=== PATIENT | female | born 1960 | race Caucasian/White ===

== ENCOUNTER 2023-12-14 13:34 | Inpatient (IN) ==
--- NOTE | 2023-12-14 14:31 | ED Triage Note ---
Date of Service December 14, 2023 Provider in Triage Author: Inocente Gómez History of Present Illness This patient was briefly evaluated while in triage. An abbreviated physical exam was performed. This patient is a 63-year-old Female who presents to the ED for evaluation of problems with her right middle toe. She noticed a wound last week. She saw her pcp today and they referred her here. Denies fevers. She is diabetic. She reports a history of Charcot foot. Physical Exam GENERAL: Non-toxic and in no acute distress. HEENT: Pupils equal. No obvious scleral icterus. HEART: Regular rate and rhythm. LUNGS: Clear to auscultation. No accessory muscle use. SKIN: Feet covered in triage. Initial orders for labs and / or imaging were placed and patient was placed in the waiting area until a bed is available. Please see further documentation for the full ED course.
[2023-12-14 15:27] LABS: Basophils # (auto) 0.04 K/uL (0.00-0.20); Basophils % (auto) 0.2 %; Hematocrit (blood only) 41.5 % (37.0-47.0); Hemoglobin 13.4 g/dl (12.0-16.0); Immature Granulocytes # (auto) 0.13 K/uL (0.01-0.20); Immature Granulocytes % (auto) 0.8 %; Lymphocytes # (auto) 0.86 K/uL (1.20-3.40); Lymphocytes % (auto) 5.1 %; Mean Corpuscular Hgb Conc 32.3 g/dL (32.0-36.0); Mean Corpuscular Volume 86.6 fL (80.0-100.0); Mean Platelet Volume 10.9 fL (9.4-12.4); Monocytes # (auto) 1.15 K/uL (0.11-0.59); Monocytes % (auto) 6.9 %; Neutrophils # (auto) 14.59 K/uL (1.40-6.50); Platelet Count 482 K/uL (130-400); RDW Standard Deviation 38.4 fL (36.4-46.3); Red Blood Count 4.79 M/uL (4.20-5.40); White Blood Count 16.77 K/ul (4.8-10.8)
--- NOTE | 2023-12-14 15:38 | XRay Report ---
XR toe(s) RT min 2V HISTORY: 63 years-old Female Right third toe infection chronic pain of the right foot COMPARISON: None TECHNIQUE: 3 views of the right third toe FINDINGS: Moderate soft tissue swelling of the forefoot. There is mild multifocal osteoarthritis. Subcutaneous emphysema but distal third toe with subtle osseous erosions noted involving the distal phalangeal tuf t laterally. IMPRESSION: Acute osteomyelitis of the third distal phalanx. ACT 112: Negative or not required by law. The above report was generated using voice recognition software. It may contain grammatical, syntax o r spelling errors. Electronically signed by: Jeovany Galan M.D. 12/14/2023 3:36 PM
[2023-12-14 15:48] LABS: Albumin Globulin Ratio 0.9 (0.9-2); Albumin Level 3.9 gm/dl (3.4-5.0); BUN Creatinine Ratio 22.5 (10-20); Bilirubin,Total 0.6 mg/dl (0.2-1.0); Calcium 9.5 mg/dl (8.6-10.3); Creatinine Clr Calc Pharmacy 71.3 ml/min; Est GFR (African American) 91.6 ml/min; Globulin 4.3 gm/dl (2.5-4.0); Potassium 4.4 mmol/L (3.5-5.1); Total Protein 8.2 gm/dl (6.0-8.3)
[2023-12-14] MEDS ORDERED: Patient's ALLERGY Info needs ENTERED STA (15:57)
--- NOTE | 2023-12-14 16:01 | Emergency Department Note ---
History of Present Illness General Chief complaint: Toe Injury/Pain Stated complaint: REF BY DOC, NEEDS 3RD TOE ON R AMPUTATED Time Seen by Provider: 12/14/23 15:38 Source: patient, family ( who is at the bedside), RN notes reviewed and old records reviewed (Old medical records were attempted to be reviewed but there are no old records at this hospital. Nurse's notes were reviewed and I agree with.) Mode of arrival: ambulatory Limitations: no limitations History of Present Illness This patient is a 63-year-old female who comes in after having a gangrenous infection of her right third toe. She said she noticed over some of the tip was black but did not tell anybody its gotten more red and swollen over the last week she saw her doctor today up in [facility] who recommended she come to an emergency department to be admitted for amputation. She has had no fever she felt weak over the last couple days but no other systemic complaint she is a diabetic. No injury she does have neuropathy as well as Charcot Paola tooth. No chest pain or shortness of breath Home Medications Medication Instructions Recorded Confirmed Type empagliflozin 25 mg tablet 25 mg PO QAM 12/14/23 12/14/23 History (Jardiance) ergocalciferol (vitamin D2) 1,250 50,000 unit PO Q14D 12/14/23 12/14/23 History mcg (50,000 unit) capsule gabapentin 600 mg tablet 600 mg PO BID 12/14/23 12/14/23 History insulin glargine 100 unit/mL (3 23 unit subcut BID 12/14/23 12/14/23 History mL) subcutaneous pen (Lantus Solostar U-100 Insulin) lisinopril 30 mg tablet 30 mg PO QAM 12/14/23 12/14/23 History metoprolol succinate 50 mg 50 mg PO HS 12/14/23 12/14/23 History tablet,extended release 24 hr risedronate 150 mg tablet 150 mg PO MONTHLY 12/14/23 12/14/23 History tramadol 50 mg tablet 50 mg PO Q6H PRN Pain 12/14/23 12/14/23 History vit A 7,160 unit-vit C 113 mg-vit 1 tab PO QAM 12/14/23 12/14/23 History E 100 zkhb-dsul-xiruai tablet Allergies Allergy/AdvReac Type Severity Reaction Status Date / Time No Known Allergies Allergy Verified 12/14/23 16:24 Past Med/Surg History Problem List (Updated 12/14/23 @ 22:31 by Inocente Gómez MD) Cellulitis (Acute) Neuropathy (Acute) Diabetes (Acute) Acute osteomyelitis of toe (Acute) Sepsis (Acute) Medical History (Updated 12/14/23 @ 22:31 by Inocente Gómez MD) T2DM (type 2 diabetes mellitus) Social History Smoking Status: Never smoker Hx Alcohol Use: No Hx Substance Use: No Preferred Language: Hungarian Communication Ability: Effective Teletype Operator Required: No Beliefs That Will Affect Care: None Current Living Situation: Spouse Current Living Situation Comment: with Other Information That Helps Us Care for You: No Feels Safe at Home: Yes Safety Concerns: Feels Safe At This Time Assistive Devices: None Review of Systems A total of 10 systems reviewed and were otherwise negative Physical Exam Vital Signs Vital Signs - 24 hr 12/14/23 14:31 Temperature 36.6 C Temperature Source Temporal Artery Scan Pulse Rate 98 H Respiratory Rate 14 Respiratory Effort / Characteristics Non-Labored Spontaneous Respiratory Depth Normal Blood Pressure 182/99 H Blood Pressure Mean 126 Pulse Oximetry 99 Oxygen Delivery Method Room Air Sepsis Recent Fever Within 48 Hours No Sepsis New/Unexplained Change in Mental Status No Sepsis Action Taken by Nursing No Action Required General: Well developed well nourished nod-iqq-zaqobjmjk middle-age female who appears in no acute distress, breathing comfortably on room air. Normal speech HEENT: Normal cephalic atraumatic. Pupils are equal round and reactive to light. Sclera anicteric. Extraocular movements are intact. Oropharynx is pink with moist mucous membranes. No swelling of the mouth lips or tongue. Neck: Supple with a midline trachea. No meningeal signs or stiffness, no JVD or bruits. No Stridor. Chest: Clear to auscultation bilaterally. No wheezes or rhonchi. No increased work of breathing. Heart: Regular rate and rhythm without murmurs or gallops. Abdomen: Soft nontender, nondistended without rebound guarding or rigidity. Extremities: No cyanosis clubbing or edema. No calf tenderness or assymetry. Her right third toe is gangrenous on the tip with black discoloration is foul- smelling there is significant swelling around this and into the foot there is redness. Spine/Back. Non tender to palpation. No CVA tenderness Skin: Good turgor without rashes. Neurologic exam: Cranial nerves two through 12 are intact. Motor and sensation are intact and symmetrical throughout. Course Administered Medications Enoxaparin Sodium (Enoxaparin Inj 40 Mg/0.4 Ml Syr) 40 mg SQ QPM JUSTA Stop: 01/13/24 20:59 Last Admin: 12/14/23 22:01 Dose: 40 mg Documented By: [id number] Gabapentin (Gabapentin 600 Mg Tab) 600 mg PO BID JUSTA Stop: 01/13/24 20:59 Last Admin: 12/14/23 22:01 Dose: 600 mg Documented By: [id number] Insulin Aspart (Insulin Aspart Per Unit Charge) 0 units SC ACHS JUSTA Stop: 01/13/24 20:59 Last Admin: 12/14/23 20:47 Dose: 1 units Documented By: [id number] Co-signed By: MG Insulin Glargine (Lantus Per Unit Charge) 10 units SC BID JUSTA Stop: 01/13/24 20:59 Last Admin: 12/14/23 20:46 Dose: 10 units Documented By: [id number] Co-signed By: MG Metoprolol Succinate (Metoprolol Succ 50mg Ext Rel Tab) 50 mg PO HS JUSTA Stop: 01/13/24 20:59 Last Admin: 12/14/23 22:01 Dose: 50 mg Documented By: [id number] Discontinued Medications Piperacillin Sod/Tazobactam Sod (Zosyn) 4.5 gm in 100 mls @ 200 mls/hr IV NOW STA Stop: 12/14/23 16:26 Last Infusion: 12/14/23 18:31 Dose: Infused Documented By: SHSherry Admin: 12/14/23 17:23 Dose: 200 mls/hr Documented By: LIZZIE Sodium Chloride (Nss) 1,000 mls @ 999 mls/hr IV .Q1H1M ONE Stop: 12/14/23 16:56 Last Admin: 12/14/23 17:08 Dose: 999 mls/hr Documented By: MANOLO Vancomycin HCl 1,750 mg/ (Sodium Chloride) 535 mls @ 200 mls/hr IV NOW ONE Stop: 12/14/23 19:10 Last Admin: 12/14/23 19:38 Dose: 200 mls/hr Documented By: [id number] Medical Decision Making Differential Diagnosis Cellulitis, osteomyelitis, electrolyte or metabolic abnormality, sepsis, diabetic emergency Medical Records Attestation: I reviewed the patient's medical records. Home Medications Current Medication List: was personally reviewed by me Laboratory Data Attestation: I reviewed the patient's lab results. 12/14/23 15:01 12/14/23 15:01 Lab Results 12/14/23 Range/Units 15:01 WBC 16.77 H (4.8-10.8) K/ul RBC 4.79 (4.20-5.40) M/uL Hgb 13.4 (12.0-16.0) g/dl Hct 41.5 (37.0-47.0) % MCV 86.6 (80.0-100.0) fL MCH 28.0 (25.0-34.0) pg MCHC 32.3 (32.0-36.0) g/dL RDW Std Deviation 38.4 (36.4-46.3) fL RDW Coeff of Nichol 12.0 (11.5-14.5) % Plt Count 482 H (130-400) K/uL MPV 10.9 (9.4-12.4) fL Immature Gran % (Auto) 0.8 % Neut % (Auto) 87.0 % Lymph % (Auto) 5.1 % [place] % (Auto) 6.9 % Eos % (Auto) 0.0 % Baso % (Auto) 0.2 % Neut # (Auto) 14.59 H (1.40-6.50) K/uL Lymph # (Auto) 0.86 L (1.20-3.40) K/uL [place] # (Auto) 1.15 H (0.11-0.59) K/uL Eos # (Auto) 0.00 (0.00-0.50) K/uL Baso # (Auto) 0.04 (0.00-0.20) K/uL Immature Gran # (Auto) 0.13 (0.01-0.20) K/uL Sodium 133 L (136-145) mmol/L Potassium 4.4 (3.5-5.1) mmol/L Chloride 93 L (98-107) mmol/L Carbon Dioxide 21 (21-32) mmol/L Anion Gap 19 H (3-11) BUN 18 (6-23) mg/dl Creatinine 0.80 (0.6-1.2) mg/dl Est Cr Clr Drug Dosing 71.3 ml/min Est GFR ( Amer) 91.6 ml/min Est GFR (Non-Af Amer) 79.0 ml/min BUN/Creatinine Ratio 22.5 H (10-20) Glucose 150 H (70-99(Fasting)) mg/dl Calcium 9.5 (8.6-10.3) mg/dl Total Bilirubin 0.6 (0.2-1.0) mg/dl AST 14 (13-39) U/L ALT 9 (7-52) U/L Alkaline Phosphatase 108 H (34-104) U/L Total Protein 8.2 (6.0-8.3) gm/dl Albumin 3.9 (3.4-5.0) gm/dl Globulin 4.3 H (2.5-4.0) gm/dl Albumin/Globulin Ratio 0.9 (0.9-2) Imaging Data Attestation: I personally reviewed and interpreted this imaging study as follows: My Impression: There is bony destruction involving the distal third tuft concerning for osteomyelitis Radiologist's Impression: Toe X-Ray 12/14/23 14:33 XR toe(s) RT min 2V HISTORY: 63 years-old Female Right third toe infection chronic pain of the right foot COMPARISON: None TECHNIQUE: 3 views of the right third toe FINDINGS: Moderate soft tissue swelling of the forefoot. There is mild multifocal osteoarthritis. Subcutaneous emphysema but distal third toe with subtle osseous erosions noted involving the distal phalangeal tuft laterally. IMPRESSION: Acute osteomyelitis of the third distal phalanx. ACT 112: Negative or not required by law. The above report was generated using voice recognition software. It may contain grammatical, syntax or spelling errors. Electronically signed by: Jeovany Galan M.D. 12/14/2023 3:36 PM Duplex Scan Lower Extremity Artery 12/14/23 16:12 Exam(s): US ARTERIAL RIGHT LOWER EXTREMITY EXAM: US Duplex Right Lower Extremity Arteries CLINICAL HISTORY: Reason for exam: need for right toe amputation, diabetes ?PAD. TECHNIQUE: Real-time duplex ultrasound scan of the right lower extremity arteries integrating B-mode two-dimensional vascular structure, Doppler spectral analysis and color flow Doppler imaging. COMPARISON: No relevant prior studies available. FINDINGS: Right common femoral artery: The peak systolic velocity in the right common femoral arteries 116 cm/s. Triphasic waveform. Right superficial femoral artery: Monophasic waveforms seen in the distal superficial femoral artery. Elevated velocities seen in the superficial femoral artery 253 cm/s. Right popliteal artery: Moderate atherosclerotic plaques are seen in the right popliteal artery. Peak systolic velocity in the right popliteal artery is 282 cm/s. Monophasic waveform. Right calf/foot arteries: Peak systolic velocity in the dorsalis pedis artery is 666 cm/s. Peak systolic velocity in the distal posterior tibial artery is 170 cm/s. Peak systolic velocity in the peroneal artery is 1 46 cm/s. Peak systolic velocity in the anterior tibial arteries 153 cm/s. Monophasic waveform Soft tissues: Unremarkable. IMPRESSION: 1. Patent arteries of the right lower extremity 2. Markedly elevated peak systolic velocity in the distal superficial femoral artery, popliteal artery and dorsalis pedis artery suggestive of more proximal luminal narrowing Electronically signed by: Mack Rodriguez MD 12/14/23 20:12 PM Chest X-Ray 12/14/23 16:13 SINGLE VIEW CHEST CLINICAL HISTORY: Preoperative examination FINDINGS: An AP upright chest radiograph is obtained. No prior studies are available for comparison at the time of dictation. The examination is degraded by portable technique and apical lordotic positioning. The cardiomediastinal silhouette is unremarkable. The lungs and pleural spaces are clear. No pneumothorax is seen. The bony thorax is grossly intact. Arthritic change is seen in the shoulders. IMPRESSION: No active disease in the chest. ACT 112: Negative or not required by law. Electronically signed by: Oh Parsons M.D. 12/14/2023 5:11 PM [facility] Narrative This patient comes in as described above. She has gangrenous changes of her right toe. Concerning for osteo-. Her x-ray shows concerns for for likely osteo myelitis. Her white count is elevated. Blood sugar was 150 . she has no significant electrolyte or metabolic abnormalities. I did discuss antibiotic choices with our pharmacist and we did order IV Zosyn IV vancomycin. The patient will need to be admitted for IV antibiotics as well as likely surgical debridement. I have consulted and discussed the case with Dr. Gore, the [facility] hospitalist , for these measures. Impression & Plan Acute osteomyelitis of toe, Sepsis, Diabetes, Neuropathy, Cellulitis Discharge Plan Visit Data Chief Complaint: Toe Injury/Pain Stated Complaint: REF BY DOC, NEEDS 3RD TOE ON R AMPUTATED ED Provider: Inocente Gómez Discharge Problem: Acute osteomyelitis of toe, Sepsis, Diabetes, Neuropathy, Cellulitis Patient Disposition: Admitted As Inpatient Discharge Instructions Interventions: ED Discharge Assessment Last Done: 12/14/23 18:36 Discharge Problem: Acute osteomyelitis of toe Qualifiers: Laterality: right Qualified Code(s): M86.171 - Other acute osteomyelitis, right ankle and foot Sepsis Qualifiers: Sepsis type: sepsis due to unspecified organism Sepsis acute organ dysfunction status: unspecified Qualified Code(s): A41.9 - Sepsis, unspecified organism Diabetes Qualifiers: Diabetes mellitus type: type 1 Diabetes mellitus complication status: with neurologic complications Cellulitis Qualifiers: Site of cellulitis: extremity Laterality: right
[2023-12-14] MEDS ORDERED: VANCOMYCIN CONSULT ACTIVE PRN (16:14)
[2023-12-14] MEDS: SODIUM CHLORIDE 0.9% 1,000 ML IV ONE (17:08)
--- NOTE | 2023-12-14 17:13 | XRay Report ---
SINGLE VIEW CHEST CLINICAL HISTORY: Preoperative examination FINDINGS: An AP upright chest radiograph is obtained. No prior studies are available for comparison a t the time of dictation. The examination is degraded by portable technique and apical lordotic positi oning. The cardiomediastinal silhouette is unremarkable. The lungs and pleural spaces are clear. No p neumothorax is seen. The bony thorax is grossly intact. Arthritic change is seen in the shoulders. IMPRESSION: No active disease in the chest. ACT 112: Negative or not required by law. Electronically signed by: Oh Parsons M.D. 12/14/2023 5:11 PM
[2023-12-14] MEDS: PIPERACILLIN/TAZOBACTAM 4.5 GM/100 ML BAG IV STA (17:23)
--- NOTE | 2023-12-14 18:24 | History & Physical Report ---
Date of Service December 14, 2023 Assessment & Plan (1) Sepsis: Plan: Source - toe osteomyelitis/foot cellulitis US arterial doppler due to diabetes and need for amputations Pre-op testing including EKG and CXR Vancomycin + Zosyn, broad spectrum due to diabetes Follow up blood culture and recommend getting surgical cultures Consult orthopedics, NPO after midnight in case plan for surgery tomorrow (2) T2DM (type 2 diabetes mellitus): Plan: Hemoglobin A1C with AM labs Reduce her usual lantus from 23 units BID to 10 units BID due to likely reduced carbohydrates in the hospital Stop SGLT-2 inhibitor, consider not going back on this given increased risk of amputations compared to alternative treatments Novolog: --Goal BSG Range: Low 110 mg/dL, High 140 mg/dL --Correction Factor: 45 mg/dL/unit --Carbohydrate ratio = 15 g/unit --BSGs ACHS if eating, q6h if npo (3) Hypertension: Plan: Continue metoprolol, hold lisinopril pre-operatively (4) Cellulitis: (5) Acute osteomyelitis of toe: Plan: 3rd distal toe Plan Diabetic neuropathy - continue gabapentin VTE prophylaxis - Lovenox 40mg SQ daily Diet - T2DM, NPO after midnight Disposition - admit to med/tele Admission and Anticipated Discharge Date Admission Date: December 14, 2023 History of Present Illness Chief Complaint: Foot infection Primary Care Provider: Jeferson Oneil PA-C Monie Hay is a 63 year old female with type 2 diabetes who presents to the ER with foot and toe infection. No fever or chills. First noticed the tip of her third toe becoming black and progressively became more swollen and erythematous over the last week. She saw her doctor today who sent her to the ER as likely needed amputated. She has a significant of history of foot surgery on the left side due to Charcot's foot. She has no known peripheral artery disease, history of heart attack or stroke. She has significant neuropathy in both feet from diabetes. Allergies Allergy/AdvReac Type Severity Reaction Status Date / Time No Known Allergies Allergy Verified 12/14/23 16:24 Home Medications Medication Instructions Recorded Confirmed Type empagliflozin 25 mg tablet 25 mg PO QAM 12/14/23 12/14/23 History (Jardiance) ergocalciferol (vitamin D2) 1,250 50,000 unit PO Q14D 12/14/23 12/14/23 History mcg (50,000 unit) capsule gabapentin 600 mg tablet 600 mg PO BID 12/14/23 12/14/23 History insulin glargine 100 unit/mL (3 23 unit subcut BID 12/14/23 12/14/23 History mL) subcutaneous pen (Lantus Solostar U-100 Insulin) lisinopril 30 mg tablet 30 mg PO QAM 12/14/23 12/14/23 History metoprolol succinate 50 mg 50 mg PO HS 12/14/23 12/14/23 History tablet,extended release 24 hr risedronate 150 mg tablet 150 mg PO MONTHLY 12/14/23 12/14/23 History tramadol 50 mg tablet 50 mg PO Q6H PRN Pain 12/14/23 12/14/23 History vit A 7,160 unit-vit C 113 mg-vit 1 tab PO QAM 12/14/23 12/14/23 History E 100 [id number]-onoe-zoawxx tablet Past Med/Surg History Problem List (Updated 12/14/23 @ 23:48 by Vlad Gore MD) Cellulitis (Acute) Acute osteomyelitis of toe (Acute) Sepsis (Acute) Medical History (Updated 12/14/23 @ 23:48 by Vlad Gore MD) Osteoporosis Hypertension Neuropathy T2DM (type 2 diabetes mellitus) Social History Smoking Status: Never smoker Hx Alcohol Use: No Hx Substance Use: No Preferred Language: Urdu Communication Ability: Effective Tooth Grinder Required: No Beliefs That Will Affect Care: None Current Living Situation: Spouse Current Living Situation Comment: with Other Information That Helps Us Care for You: No Feels Safe at Home: Yes Safety Concerns: Feels Safe At This Time Assistive Devices: None Review of Systems 2 Review of Systems: All systems reviewed & are unremarkable except as noted in HPI & below Physical Exam 2 Constitutional: WD/WN, vitals as above Eyes: + anicteric sclerae; normal pupil size ENMT: external ear and nose normal, oropharynx normal Mouth: oral mucous membranes not dry Respiratory: normal respiratory effort, lungs clear to auscultation Cardiovascular: RRR, no murmur, no edema Gastrointestinal (Abdomen): normal bowel sounds, soft, nontender, no hepatosplenomegaly Musculoskeletal: no cyanosis or clubbing, extremities motor strength 5/5 Skin: Right foot: Unstageable ulcer on the tip of her third toe on the right foot with pus, swelling and erythema. Erythema and swelling spread to ankle as can be seen on pictures below Neurologic: moves all extremities and awake; not confused Motor/Sensory: + sensory deficit (reduced sensation distal to ankles b/l) Psychiatric: A+Ox3, euthymic affect Results & Data Results & Data Vital Signs (Past 12 Hours) Vital Signs Temp Pulse Pulse Resp BP BP Pulse Ox 12/14/23 17:25 90 25 H 154/89 H 97 12/14/23 17:24 88 12/14/23 17:09 89 24 181/95 H 97 12/14/23 14:31 36.6 C 98 H 14 182/99 H 99 O2 Del Method 12/14/23 17:25 Room Air 12/14/23 17:24 12/14/23 17:09 Room Air 12/14/23 14:31 Room Air Laboratory Results Abnormal lab results 12/14/23 Range/Units 15:01 WBC 16.77 H (4.8-10.8) K/ul Plt Count 482 H (130-400) K/uL Neut # (Auto) 14.59 H (1.40-6.50) K/uL Lymph # (Auto) 0.86 L (1.20-3.40) K/uL [place] # (Auto) 1.15 H (0.11-0.59) K/uL Sodium 133 L (136-145) mmol/L Chloride 93 L (98-107) mmol/L Anion Gap 19 H (3-11) BUN/Creatinine Ratio 22.5 H (10-20) Glucose 150 H (70-99(Fasting)) mg/dl Alkaline Phosphatase 108 H (34-104) U/L Globulin 4.3 H (2.5-4.0) gm/dl Diagnostic Findings SINGLE VIEW CHEST CLINICAL HISTORY: Preoperative examination FINDINGS: An AP upright chest radiograph is obtained. No prior studies are available for comparison at the time of dictation. The examination is degraded by portable technique and apical lordotic positioning. The cardiomediastinal silhouette is unremarkable. The lungs and pleural spaces are clear. No pneumothorax is seen. The bony thorax is grossly intact. Arthritic change is seen in the shoulders. IMPRESSION: No active disease in the chest. XR toe(s) RT min 2V HISTORY: 63 years-old Female Right third toe infection chronic pain of the right foot COMPARISON: None TECHNIQUE: 3 views of the right third toe FINDINGS: Moderate soft tissue swelling of the forefoot. There is mild multifocal osteoarthritis. Subcutaneous emphysema but distal third toe with subtle osseous erosions noted involving the distal phalangeal tuft laterally. IMPRESSION: Acute osteomyelitis of the third distal phalanx. Medications Administered ER medications given: Zosyn 4.5 g IV Normal saline 1 L bolus ECG Rate (beats per minute): 91 Rhythm: normal sinus Findings: no acute ischemic change Comparison ECG Date: no prior available Code Status & VTE Plan Code Status Full VTE Prophylaxis Plan VTE Prophylaxis will be ordered: Yes PG Care Time/CCT Total # of Minutes Spent Total Time Spent with Patient: Total time spent is greater than 50% in coordination of care (as documented) at patient's floor/unit and/or counseling patient: Coding Level of Care Code 99580 INT INP/OBS CARE 3/75MIN Diagnoses Sepsis without acute organ dysfunction, due to unspecified organism A41.9 Sepsis type: sepsis due to unspecified organism Sepsis acute organ dysfunction status: without acute organ dysfunction Type 2 diabetes mellitus with foot ulcer, with long-term current use of insulin E11.621; L97.509; Z79.4 Diabetes mellitus group home insulin use: with group home use Diabetes mellitus complication status: with skin complications Diabetes mellitus complication detail: with foot ulcer Primary hypertension I10 Hypertension type: primary hypertension Cellulitis of right lower extremity L03.115 Laterality: right Site of cellulitis: extremity Site of cellulitis of extremity: lower extremity Acute osteomyelitis of toe of right foot M86.171 Laterality: right (1) Sepsis Sepsis type: sepsis due to unspecified organism Sepsis acute organ dysfunction status: without acute organ dysfunction Qualified Code(s): A41.9 - Sepsis, unspecified organism (2) T2DM (type 2 diabetes mellitus) Diabetes mellitus exterminator insulin use: with group home use Diabetes mellitus complication status: with skin complications Diabetes mellitus complication detail: with foot ulcer Qualified Code(s): E11.621 - Type 2 diabetes mellitus with foot ulcer; L97.509 - Non-pressure chronic ulcer of other part of unspecified foot with unspecified severity; Z79.4 - [facility] (current) use of insulin (3) Hypertension Hypertension type: primary hypertension Qualified Code(s): I10 - Essential (primary) hypertension (4) Cellulitis Laterality: right Site of cellulitis: extremity Site of cellulitis of extremity: lower extremity Qualified Code(s): L03.115 - Cellulitis of right lower limb (5) Acute osteomyelitis of toe Laterality: right Qualified Code(s): M86.171 - Other acute osteomyelitis, right ankle and foot
[2023-12-14] MEDS ORDERED: GLUCOSE 40% GEL 15 GM TUBE PO PRN (19:15)
[2023-12-14] MEDS ORDERED: GLUCAGON FOR INJ 1 MG VIAL SQ PRN (19:15)
[2023-12-14] MEDS ORDERED: GLUCOSE 10 TAB/TUBE PO PRN (19:15)
[2023-12-14] MEDS: VANCOMYCIN HCL 1,750 MG in SODIUM CHLORIDE 0.9% 500 ML IV ONE (19:38)
[2023-12-14] MEDS ORDERED: traMADol HCL 50 MG TABLET PO PRN (20:10)
--- NOTE | 2023-12-14 20:13 | Ultrasound Report ---
Exam(s): US ARTERIAL RIGHT LOWER EXTREMITY EXAM: US Duplex Right Lower Extremity Arteries CLINICAL HISTORY: Reason for exam: need for right toe amputation, diabetes ?PAD. TECHNIQUE: Real-time duplex ultrasound scan of the right lower extremity arteries integrating B-mode two-dimensional vascular structure, Doppler spectral analysis and color flow Doppler imaging. COMPARISON: No relevant prior studies available. FINDINGS: Right common femoral artery: The peak systolic velocity in the right common femoral arteries 116 cm/s. Triphasic waveform. Right superficial femoral artery: Monophasic waveforms seen in the distal superficial femoral artery. Elevated velocities seen in the superficial femoral artery 253 cm/s. Right popliteal artery: Moderate atherosclerotic plaques are seen in the right popliteal artery. Peak systolic velocity in the right popliteal artery is 282 cm/s. Monophasic waveform. Right calf/foot arteries: Peak systolic velocity in the dorsalis pedis artery is 666 cm/s. Peak systolic velocity in the distal posterior tibial artery is 170 cm/s. Peak systolic velocity in the peroneal artery is 1 46 cm/s. Peak systolic velocity in the anterior tibial arteries 153 cm/s. Monophasic waveform Soft tissues: Unremarkable. IMPRESSION: 1. Patent arteries of the right lower extremity 2. Markedly elevated peak systolic velocity in the distal superficial femoral artery, popliteal artery and dorsalis pedis artery suggestive of more proximal luminal narrowing Electronically signed by: Mack Rodriguez MD 12/14/23 20:12 PM
[2023-12-14] MEDS: LANTUS PER UNIT CHARGE SC SCH (20:46)
[2023-12-14] MEDS: INSULIN ASPART PER UNIT CHARGE SC SCH (20:47)
[2023-12-14] MEDS ORDERED: NON-FORMULARY MEDICATION (Insulin Glargine [Lantus Solostar U-100 Insulin] 100 unit/mL (3 SQ SCH (21:00)
[2023-12-14] MEDS: GABAPENTIN 600 MG TAB PO SCH (22:01)
[2023-12-14] MEDS: METOPROLOL SUCC 50MG EXT REL TAB PO SCH (22:01)
[2023-12-14] MEDS: ENOXAPARIN INJ 40 MG/0.4 ML SYR SQ SCH (22:01)
[2023-12-14] MEDS: LACTATED RINGER'S 1,000 ML IV SCH (23:38)
[2023-12-15] MEDS: DEXTROSE 50% 50 ML SYRINGE IV PRN (06:19)
[2023-12-15] MEDS: INSULIN ASPART PER UNIT CHARGE SC SCH ×2 (06:25→18:14)
[2023-12-15] MEDS ORDERED: Nursing to Pharmacy Communication SCH ×2 (06:30→12:45)
[2023-12-15] MEDS: VANCOMYCIN HCL 1,000 MG in SODIUM CHLORIDE 0.9% 250 ML IV SCH (06:39)
[2023-12-15 07:57] LABS: Basophils # (auto) 0.04 K/uL (0.00-0.20); Basophils % (auto) 0.3 %; Eosinophils # (auto) 0.06 K/uL (0.00-0.50); Eosinophils % (auto) 0.5 %; Hematocrit (blood only) 32.3 % (37.0-47.0); Hemoglobin 10.6 g/dl (12.0-16.0); Immature Granulocytes # (auto) 0.12 K/uL (0.01-0.20); Lymphocytes % (auto) 9.4 %; Mean Corpuscular Hemoglobin 28.1 pg (25.0-34.0); Mean Corpuscular Hgb Conc 32.8 g/dL (32.0-36.0); Mean Corpuscular Volume 85.7 fL (80.0-100.0); Mean Platelet Volume 10.7 fL (9.4-12.4); Monocytes # (auto) 1.14 K/uL (0.11-0.59); Monocytes % (auto) 9.8 %; Neutrophils # (auto) 9.23 K/uL (1.40-6.50); Platelet Count 361 K/uL (130-400); RDW Coefficient of Variation 12.2 % (11.5-14.5); RDW Standard Deviation 38.6 fL (36.4-46.3); Red Blood Count 3.77 M/uL (4.20-5.40); White Blood Count 11.69 K/ul (4.8-10.8)
[2023-12-15 08:14] LABS: Albumin Globulin Ratio 0.9 (0.9-2); Albumin Level 2.8 gm/dl (3.4-5.0); Bilirubin,Total 0.4 mg/dl (0.2-1.0); C Reactive Protein 17.82 mg/dl (0-0.5); Calcium 8.3 mg/dl (8.6-10.3); Creatinine Clr Calc Pharmacy 88.3 ml/min; Est GFR (African American) 110.3 ml/min; Est GFR (Non-African American) 95.2 ml/min; Globulin 3.1 gm/dl (2.5-4.0); Magnesium 1.8 mg/dl (1.7-2.4); Potassium 4.3 mmol/L (3.5-5.1); Total Protein 5.9 gm/dl (6.0-8.3)
[2023-12-15 08:32] LABS: Estimated Average Glucose 272 mg/dl; Hemoglobin A1C 11.1 % (4.5-5.6)
[2023-12-15] MEDS ORDERED: NON-FORMULARY MEDICATION (Vit A-Vit C-Vit E-Zinc-Copper 7,160-113-100 unit-mg-unit Tablet) PO SCH (09:00)
--- OUTSIDE RECORDS SUMMARY | 2023-12-15 09:09 | External Medical Summary | Summary of Care ---
Author Name Unknown Organization [facility] Address [address] [address] [address] Phone [phone] Care Team Providers Care Zinc Plating Machine Operator Name Role Phone Jeferson Oneil PA-C Primary Care Provider + Reason for Visit * Reason Onset Date Comments TRIAGE Non-CE DM Diabetes Management 11/06/2023 Non-CE DM Encounter Details Date Type Department Care Team (Late st Contact Info) Description 11/06/2023 Telephone Centralized Clinical Pharmacy Services, Sabrina Arroyo [address] [place] [address] [place] [id number] Radha Kim, [facility] [address] [place] [id number] TRIAGE (Non-CE DM); Diabetes Management (N... Allergies Active Allergy Reactions Criticality Noted Date Comments Penicillins 12/01/2000 Augmentin= rash documented as of this encounter (statuses as of 11/25/2023) Medications Medication Sig Dispensed Refills Start Date End Date Status insulin glargine (LANTUS) 100 UNIT/ML injection 20-25 UNITS AT NIGHT TIME Active Gabapentin 600 MG Tablet 1 TABLET THREE TIMES DAILY Active metFORMIN (GLUCOPHAGE) 500 MG Tablet 1 TABLET THREE TIMES DAILY Active Risedronate Sodium (ACTONEL) 150 MG TABS 1 TABLET PER MONTH Active Vitamin D, Ergocalciferol, 61680 UNITS Capsule 1 CAP EVERY OTHER WEEK Active Multiple Vitamins-Minerals (OCUVITE ADULT 50+) Capsule 1 CAP DAILY Active traMADol (ULTRAM) 50 MG Tablet As needed 06/08/2015 Active Fluocinonide 0.05 % cream As needed 11/21/2015 Active lisinopril (PRINIVIL) 10 MG Tablet Take 2 Tabs by mouth daily. 1 TABLET DAILY 60 Tab 04/29/2016 Active ELIQUIS 2.5 MG TABS 05/09/2016 Activ e oxyCODONE-acetaminophe n 5-325 mg per tab (PERCOCET) 5-325 MG per tablet 05/09/2016 Active atorvaSTATin (LIPITOR) 40 MG Tablet Take by mouth daily. 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 09/06/2014 Diabetic macular edema 09/06/2014 Overview: ICD-10 update of inactive term Nuclear senile cataract of both eyes 09/06/2014 Family history of other cardiovascular diseases 12/03/2000 Overview: ICD-10 update of inactive term Mixed dyslipidemia HTN, goal below 140/90 documented as of this encounter (statuses as of 11/25/2023) Social History Tobacco Use Types Packs/Day Years Used Date Smoking Tobacco: Former Cigarettes 0.5 20 0 05/22/1983 - 05/22/2003 Smokeless Tobacco: Never Alcohol Use Standard Drinks/Week Comments No 0 (1 standard drink = 0.6 oz pur e alcohol) Utilities Answer Date Recorded Do you have trouble paying y our heating, water, or electric bill? (Adult - for ages 18 years and over) Not on file 09/08/2023 Is your family able to pay t he heat, water, or electric bill? (Household - for ages 0-17 years) Not on file 09/08/2023 Does your family have access to good internet? (Household - for ages 0-17 years) Not on file 09/08/2023 Social Connections Answer Date Recorded How often do you feel lonely or isolated from those around you? (Adult - for ages 18 years and over) Not on file 09/08/2023 Sex and Gender Information Value Date Recorded Sex Assigned at Not on file Gender Identity Not on file Sexual Orientation Not on file Job Start Date Occupation Industry Not on file Not on file Not on file documented as of this encounter Miscellaneous Notes * Telephone Encounter - Radha Kim, [facility] - 11/06/2023 3:[address] [facility] Non-Clinical [place] Diabetes Initiative THIS NOTE SERVES FOR TRIAGING PURPOSES ONLY AND IS NOT A PATIENT CONTACT. PATIENT MAY BE CONTACTED FOLLOWING MY ASSESSMENT. DNC list. Previously successful, reassess. Patient was identified to be a candidate for the Non-CE telephonic program based on the following criteria: Pharmacy AND/OR Medical High Cost / A1c < 9.0 / PDC >=80% Patient managed by [facility] provider? No; Is Pertinent Diabetes Info in Care Everywhere? Yes Last A1C: 07/04/23 (Result Date: 8.9%) Diabetes Diagnosis: Type 2 After chart review the following opportunities were identified: Mail Order Invite, Obtain Updated A1c, Therapy Optimization (PRN), and services? Vaccine review Action to be taken by lighting engineering technician: This is a follow up call. Patient last spoke with [facility] on 01/01/23, schedule an appointment. Needs Language Line: No Medication Claims Data (To verify during call): Med: JARDIANCE 10 Fill date: 07/21/2023 Day Supply:90 Quantity: 90 || Med: METFORMIN HYDROCHLORIDE 500 MG Fill date: 12/06/2022 Day Supply: 90 Quantity: 270 || Med: INSULIN ASPART FLEXPEN 100 UNIT/ML Fill date: 02/20/2023 Day Supply: 140 Quantity: 15|| Med: LANTUS SOLOSTAR 100 Fill date: 07/02/2023 Day Supply: 98 Quantity: 45 Radha Kim [facility] Clinical Pharmacist 11/06/2023, 3:58 PM documented in this encounter Plan of Treatment Health Maintenance Due Date Last Done Comments Pneumococcal Vaccine: Pediatrics (0 to 5 Years) and At-Risk Patients (6 to 64 Years) (1 of 2 - PCV) 1967 Depression Screening 1973 HIV Screening 1976 Diabetic Foot Exam 1979 Hepatitis C Screening 1979 DTap/Tdap Vaccines (1 - Tdap) 1980 HPV/Co-Test 1991 Cervical Cancer Screening 03/07/2006 Pap Smear 03/07/2006 03/07/2003, 02/20, 04/01/2001 Cologuard 2006 Colonoscopy 2006 Colorectal Cancer Screening 2006 Fecal Occult Blood Test 2006 Sigmoidoscopy 2006 Zoster Vaccines (1 of 2) 2011 Mammogram 06/28/2022 06/28/2021, 04/0 10/2021, 06/28/2021, Additional history exists COVID-19 Vaccine ( season) 2023 Influenza Vaccine (FLU shot) (#1) 2023 Albumin/Creatinine Ratio 04/09/202404/09/ 024, 05/08/2021, 01/16/2020 HbA1c 05/14/2024 11/12/2023, 06/21, 04/09/2023, Additional history exists Diabetic Eye Exam 09/13/2024 09/14/2023, , 04/28/2023, Additional history exists GFR 11/11/2024 11/12/2023, 06/21, 04/09/2023, Additional history exists Lipid Panel 11/11/2028 11/12/2023, 09/20, 05/08/2021, Additional history exists HPV (Gardasil) Vaccine Aged Out No lo nger eligible based on patient's age to complete this topic Hepatitis B Vaccine Aged Out No longe r eligible based on patient's age to complete this topic MENINGOCOCCAL (MENACTRA/MENVEO) Aged Out No longer eligible based on patient's age to complete this topic documented as of this encounter Medical Devices Not on filedocumented as of this encounter Care Teams Zinc Plating Machine Operator Relationship Specialty Start Date End Date Jeferson Oneil PA-C [address] [address] [place] [id number] PCP - General Physician Retort Firer 11/12/23 documented as of this encounter"
--- OUTSIDE RECORDS SUMMARY | 2023-12-15 09:09 | External Medical Summary | Summary of Care ---
Author Name Unknown Organization [facility] Ambulatory Address [address] [place] [address] Phone Care Team Providers Care Stain Applicator Name Role Phone Clarice Kahn PA-C, Jeferson Primary Care Provider [phone] Provider, Generic External Data Unavailable Unavailable Source Comments This information has been disclosed to you from records protected by federal confidentiality rules (42 CFR part 2). The federal rules prohibit you from making any further disclosure of information inthis record that identifies a patient as having or having had a substance use disorder either directly, by reference to publicly available information, or through verification of such identification by another person unless further disclosure is expressly permitted by the written consent of the individual whose information is being disclosed or as otherwise permitted by 42 CFR part 2. A general authorization for the release of medical or other information is NOT sufficient for this purpose (seesection 2.31). The federal rules restrict any use of the information to investigate or prosecute with regard to a crime any patient with a substance use disorder, except as provided at sections 2.12(c)(5) and 2.65.[facility] Ambulatory Reason for Visit * Reason Comments Routine Follow Up Encounter Details Date Type Department Care Team (Latest Contact Info) Description 11/13/2023 8:30 AM EDT Office Visit Family [facility] Cheryl [address] [place] [id number] [employer] Tech: Cadence Panda John V, PA-C [address] [place] [id number] Type 2 diabetes mellitus with other specified complication, with long-term current use of insulin (HCC) (Primary Dx); Hyperlipidemia, unspecified hyperlipidemia type; Benign hypertension; Neuropathy; Charcot's arthropathy Allergies Active Allergy Reactions Criticality Noted Date Comments Meloxicam High Elevates BP Penicillins 12/01/2000 Augmentin= rash documented as of this encounter (statuses as of 11/29/2023) Medications Medication Sig Dispensed Refills Start Date End Date Status fluticasone (FLONASE) 50 mcg/actuation nasal spray Use 2 sprays in each nostril daily as needed Active blood glucose test strip Test Blood sugar one a day Active ALLERGY RELIEF, LORATADINE, 10 mg oral tablet TAKE 1 TABLET BY MOUTH ONCE DAILY FOR 30 DAYS 90 tablet 1 9 Active Additional Information Patient taking differently: 10 mg oral Daily PRN, Reported on 12/27/2021 insulin Rosepine, Disposable, (JENNIE PEN NEEDLE) 32 gauge x 5/32" needle Use daily as directed 30 each 5 2 Active fluocinonide (LIDEX) 0.05 % topical cream Apply topically 2 times a day PRN 30 g 3 3 Active Blood-Glucose Sensor (DEXCOM G7 SENSOR) misc device Use daily as directed to monitor BS Dx E11.69 3 each 3 3 Active Blood-Glucose Meter,Continuous (DEXCOM G7 PRODUCTION WOOD CRAFTSMAN) misc misc Use daily as directed to monitor blood glucose . E11.69 1 each 3 Active insulin aspart U-100 (NOVOLOG) 100 unit/mL (3 mL) subcutaneous flexpen INJECT 3 UNITS TWICE DAILY BEFORE MEAL(S) 15 mL 3 Active metoprolol succinate (TOPROL-XL) 50 mg oral extended-release tablet Take 1 tablet by mouth once daily 90 tablet 1 4 Active LANTUS SOLOSTAR U-100 INSULIN 100 unit/mL (3 mL) subQ subcutaneous pen INJECT 46 UNITS SUBCUTANEOUSLY IN THE MORNING 45 mL 1 4 Active risedronate (ACTONEL) 150 mg oral tablet TAKE 1 TABLET BY MOUTH ONCE EVERY MONTH DIRECTED 4 tablet 2 4 Active gabapentin (NEURONTIN) 600 mg oral tablet Take 1 tablet by mouth 2 times a day 180 tablet 1 4 Active ergocalciferol (VITAMIN D2) 1,250 mcg (50,000 unit) oral capsule TAKE 1 CAPSULE BY MOUTH EVERY TWO WEEKS DIRECTED 6 capsule 1 4 Active lisinopriL 30 mg oral tablet Take 1 tablet by mouth once daily 90 tablet 1 4 Active traMADoL (ULTRAM) 50 mg oral tablet TAKE 1 TABLET BY MOUTH EVERY 6 HOURS NEEDED FOR PAIN 20 tablet 4 Active empagliflozin (JARDIANCE) 25 mg oral tablet Take 1 tablet by mouth daily 90 tablet 3 4 Active JARDIANCE 10 mg oral tablet Take 1 tablet by mouth daily 4 11/13/19 24 Discontinued documented as of this encounter (statuses as of 11/29/2023) Active Problems Problem Noted Date Diagnosed Date Benign hypertension 2018 Diabetes mellitus 2018 Neuropathy 2018 Charcot's arthropathy 2018 documented as of this encounter (statuses as of 11/29/2023) Social History Tobacco Use Types Packs/Day Years Used Date Smoking Tobacco: Former Passive Smoke Exposure: Never Smokeless Tobacco: Never Alcohol Use Standard Drinks/Week Comments No 0 (1 standard drink = 0.6 oz pur e alcohol) AUDIT-C Answer Date Recorded Q1: How often do you have a drink containing alc ohol? Never 08/31/2020 Average Number of Drinks Not on file 021 Frequency of Binge Drinking Not on file 08/21 [facility] - Occupational Stress Questionnaire Answer Date Recorded Do you feel stress - tense, restless, nervous, or anxious, or unable to sleep at night because your mind is troubled all the time - these days? To some extent 08/31/2020 Exercise Vital Sign Answer Date Recorde d On average, how many days pe r week do you engage in moderate to strenuous exercise (like a brisk walk)? 0 days 08/31/2020 On average, how many minutes do you engage in exercise at this level? 0 min 08/31/2020 Depression Answer Date Recorded PHQ-2 Screening Result Negative 4 PHQ Result Negative 04/10/2023 Sex and Gender Information Value Date Recorded Sex Assigned at Not on file Gender Identity Not on file Sexual Orientation Not on file documented as of this encounter Last Filed Vital Signs Vital Sign Reading Time Taken Comments Blood Pressure 198/117 11/13/2023 8:37 AM EDT Pulse 78 11/13/2023 8:33 AM EDT Temperature 35.6 C (96.1 F) 11/13/2023 8:33 AM ED T Respiratory Rate 16 11/13/2023 8:33 AM EDT Oxygen Saturation 99% 11/13/2023 8:33 AM EDT Inhaled Oxygen Concentration - - Weight 86.2 kg (190 lb 2 oz) 11/13/2023 8:33 AM EDT Height 156.2 cm (5' 1.5") 11/13/2023 8:33 AM EDT Body Mass Index 35.34 11/13/2023 8:33 AM EDT documented in this encounter Progress Notes * Jeferson Oneil PA-C - 11/13/2023 8:30 AM EDT Subjective CC: Chief Complaint Patient presents with Routine Follow Up HPI: Monie is a 63 year old female that presents for routine f/u: 1) HTN -- BP is elevated as usual. Has a h/o white coat HTN. States her BP at home is typically very well controlled at home. She checks that daily. Was sick last week -- nausea and diarrhea. Had to stop her BP meds temporarily. 2) DM 2 -- HgbA1C is elevated to 10.9. Last check was at 8.9. She was without her dexcom for a period of time. Still using dexcom. She did not get the Ozempic filled due to cost. She has made some significant life changes and dietary changes. She is currently taking Lantus 46 units daily. She has had 3 episodes of hypoglycemia -- about 45. Her bilateral peripheral neuropathy of feet has persisted. She is only taking the gabapentin BID and that seems to work well for her. She stopped taking metformin due to GI side effects and her diarrhea is much improved. 3) Has a chronic trigger thumb left hand, getting better. 4) She had a normal mammogram in June 2021. 5) Hyperlipidemia -- we discussed starting a statin. Will consider next visit. She refuses to have a colonoscopy. Review of Systems Eyes: Negative for pain and visual disturbance. Respiratory: Negative for cough, chest tightness and shortness of breath. Cardiovascular: Negative for chest pain, palpitations and leg swelling. Gastrointestinal: Negative for abdominal pain, diarrhea, nausea and vomiting. Endocrine: Negative for polydipsia, polyphagia and polyuria. Genitourinary: Negative for hematuria. Musculoskeletal: Positive for arthralgias. Skin: Negative for rash. Neurological: Negative for dizziness, tremors, syncope and headaches. Hematological: Negative for adenopathy. Past Medical History: Diagnosis Date Diabetes (HCC) Essential hypertension Osteoporosis Vitamin D deficiency Past Surgical History: Procedure Laterality Date FOOT/TOES SURGERY PROC UNLISTED Right Right foot 6 broken bones TONSILLECTOMY / ADENOIDECTOMY TONSILLECTOMY/ADENOIDECTOMY Family History Problem Relation Age of Onset Heart Disease Biological Father OR Diabetes Brother Social History Socioeconomic History Marital status: Single Tobacco Use Smoking status: Former Passive exposure: Never Smokeless tobacco: Never Vaping Use Vaping status: never used Substance and Sexual Activity Alcohol use: No Drug use: Never Sexual activity: Never Outpatient Medications Marked as Taking for the 11/13/23 encounter (Office Visit) with Jeferson Oneil PA-C Medication Sig Dispense Refill ALLERGY RELIEF, LORATADINE, 10 mg oral tablet TAKE 1 TABLET BY MOUTH ONCE DAILY FOR 30 DAYS (Patient taking differently: Take 10 mg by mouth daily as needed) 90 tablet 1 blood glucose test strip Test Blood sugar one a day Blood-Glucose Meter,Continuous (DEXCOM G7 PRODUCTION WOOD CRAFTSMAN) misc misc Use daily as directed to monitor blood glucose . E11.69 1 each 0 Blood-Glucose Sensor (DEXCOM G7 SENSOR) misc device Use daily as directed to monitor BS Dx E11.69 3each 3 empagliflozin (JARDIANCE) 25 mg oral tablet Take 1 tablet by mouth daily 90 tablet 3 ergocalciferol (VITAMIN D2) 1,250 mcg (50,000 unit) oral capsule TAKE 1 CAPSULE BY MOUTH EVERY TWO WEEKS DIRECTED 6 capsule 1 fluocinonide (LIDEX) 0.05 % topical cream Apply topically 2 times a day PRN 30 g 3 fluticasone (FLONASE) 50 mcg/actuation nasal spray Use 2 sprays in each nostril daily as needed gabapentin (NEURONTIN) 600 mg oral tablet Take 1 tablet by mouth 2 times a day 180 tablet 1 insulin aspart U-100 (NOVOLOG) 100 unit/mL (3 mL) subcutaneous flexpen INJECT 3 UNITS TWICE DAILY BEFORE MEAL(S) 15 mL 0 insulin Rosepine, Disposable, (JENNIE PEN NEEDLE) 32 gauge x 5/32" needle Use daily as directed 30 each 5 LANTUS SOLOSTAR U-100 INSULIN 100 unit/mL (3 mL) subQ subcutaneous pen INJECT 46 UNITS SUBCUTANEOUSLY IN THE MORNING 45 mL 1 lisinopriL 30 mg oral tablet Take 1 tablet by mouth once daily 90 tablet 1 metoprolol succinate (TOPROL-XL) 50 mg oral extended-release tablet Take 1 tablet by mouth once daily 90 tablet 1 risedronate (ACTONEL) 150 mg oral tablet TAKE 1 TABLET BY MOUTH ONCE EVERY MONTH DIRECTED 4 tablet 2 traMADoL (ULTRAM) 50 mg oral tablet TAKE 1 TABLET BY MOUTH EVERY 6 HOURS NEEDED FOR PAIN 20 tablet 0 Allergies Allergen Reactions Meloxicam Elevates BP Penicillins Augmentin= rash Objective BP (!) 198/117 | Pulse 78 | Temp 96.1 F (35.6 C) (Temporal) | Resp 16 | Ht 5' 1.5" (156.2 cm) |Wt 190 lb 2 oz (86.2 kg) | SpO2 99% | BMI 35.34 kg/m Physical Exam Vitals reviewed. Constitutional: General: She is not in acute distress. Appearance: She is well-developed. HENT: Head: Normocephalic and atraumatic. Eyes: General: No scleral icterus. Pupils: Pupils are equal, round, and reactive to light. Neck: Thyroid: No thyromegaly. Cardiovascular: Rate and Rhythm: Normal rate and regular rhythm. Heart sounds: No murmur heard. Pulmonary: Effort: Pulmonary effort is normal. No respiratory distress. Breath sounds: Normal breath sounds. Abdominal: General: Bowel sounds are normal. There is no distension. Palpations: Abdomen is soft. There is no mass. Tenderness: There is no abdominal tenderness. Musculoskeletal: Cervical back: Neck supple. Left foot: Decreased range of motion. Swelling (charcot arthropathy), deformity (charcot arthropathy) and tenderness (mid foot) present. Lymphadenopathy: Cervical: No cervical adenopathy. Skin: General: Skin is warm and dry. Findings: No rash. Neurological: Mental Status: She is alert and oriented to person, place, and time. Cranial Nerves: No cranial nerve deficit. Psychiatric: Behavior: Behavior normal. Assessment/Plan Consider adding amlodipine and statin next visit. BP improved to 137/92. Increase Jardiance. Continue lantus 46 units daily. Start taking that in the morning. Remain off the metformin. She is going to start using her novolog sliding scale more frequently, and this was strongly encouraged now that she has her Dexcom. Monitor sugars. Low carb diet was stressed. Avoid aggrevators as discussed. Labs as ordered. Monitor BP as directed. Diagnosis ICD-10-CM Plan 1. Type 2 diabetes mellitus with other specified complication, with long-term current use of insulin (HCC) E11.69 HEMOGLOBIN A1C (HGBA1C) Z79.4 BASIC METABOLIC PANEL 2. Hyperlipidemia, unspecified hyperlipidemia type E78.5 BASIC METABOLIC PANEL 3. Benign hypertension I10 BASIC METABOLIC PANEL 4. Neuropathy G62.9 5. Charcot's arthropathy M14.60 Orders Placed This Encounter HEMOGLOBIN A1C (HGBA1C) BASIC METABOLIC PANEL empagliflozin (JARDIANCE) 25 mg oral tablet Return in about 4 months (around 03/14/2024). documented in this encounter Nursing Notes * Lilly Hennessy - 11/13/2023 8:30 AM EDT Patient is here for a follow up. States she has white coat syndrome and her BP is always high when she is here. Showed readings from home which was normal. Said she asked for an anxiety pill before so she could take it before she comes to the doctors office but said she was given another BP medication. She said it remains high always when she is at the doctors office. documented in this encounter Plan of Treatment Scheduled Orders Name Type Priority Associated Diagnoses Orde r Schedule HEMOGLOBIN A1C (HGBA1C) Lab Routine Type 2 diabetes mellitus with other specified complication, with long-term current use of insulin (HCC) 1 Occurrences starting 11/13/2023 until 11/12/2024 BASIC METABOLIC PANEL Lab Routine Type 2 diabetes mellitus with other specified complication, with long-term current use of insulin (HCC) Hyperlipidemia, unspecified hyperlipidemia type Benign hypertension 1 Occurrences starting 11/13/2023 until 11/12/2024 Health Maintenance Due Date Last Done Comments Cologuard 1961 Colonoscopy 1961 Fecal Occult Blood Testing 1961 Sigmoidoscopy 1961 DTaP/Tdap/Td Vaccine (1 - Tdap) 1980 Colposcopy 1982 HPV/Cotest 1982 Pap Smear 1982 Hepatitis B Vaccine (1 of 3 - Risk 3-dose series) 2021 Urine Albumin Battery 05/08/2022 05/08/2021 Controlled Substance Agreement 10/03/2022 10/03/2022, 07/04/2022, 08/31/2020 Mammogram 06/29/2023 06/28/2021, 04/22/2019 Diabetic Foot Exam 07/05/2023 07/04/2022, 1 , 09/16/2019 Lipid Profile 10/01/2023 09/30/2022, 04/23, 09/09/2019 COVID-19 Vaccine ( - season) 2023 Flu Vaccine (#1) 12/22/2023 HbA1c 01/03/2024 07/04/2023, 12/21, 09/30/2022, Additional history exists Billable Depression Screen 01/10/202401/09, 12/27/2021, 08/31/2020 Cervical Cancer Screening 01/10/2024 Po stponed from 1982 (Recommended) Full Body Skin Exam 01/10/2024 01/09/2023 Pneumococcal Vaccine (1 of 2 - PCV) 01/10/2024 Postponed from 1967 (Recommended Yet Declined) Shingles Vaccine (Recombinant) (1 of 2) 01/10/2024 Postponed from 2011 (Recommended Yet Declined) Colorectal Cancer Screening 01/13/2024 Postponed from 1961 (Recommended Yet Declined) Creatinine Serum 07/03/2024 07/04/2023, , 01/07/2023, Additional history exists Potassium 07/03/2024 07/04/2023, 03/23, 01/07/2023, Additional history exists Diabetic Retinal Exam 09/13/2024 09/14/2023 , 02/11/2023, 11/19/2022, Additional history exists Advance Directives 2025 Postponed from 1979 (Medical Reason) Depression Screening Completed 04/10/2023, 01/10/20 23 HIV Screening Discontinued Hepatitis C Screen Discontinued documented as of this encounter Visit Diagnoses Diagnosis Type 2 diabetes mellitus with other specified complication, with long-term current use of insulin (HCC)- Primary Hyperlipidemia, unspecified hyperlipidemia type Benign hypertension Essential hypertension, benign Neuropathy Mononeuritis of unspecified site Charcot's arthropathy Tabes dorsalis documented in this encounter Care Teams Stain Applicator Relationship Specialty Start Date End Date Jeferson Oneil PA-C [address] [place] [id number] PCP - General Family Medicine 12/14/17 Provider, Generic External Data 01/20/20 documented as of this encounter
--- OUTSIDE RECORDS SUMMARY | 2023-12-15 09:10 | External Medical Summary | Summary of Care ---
Author Name Unknown Organization [facility] Address [address] [place] [address] Phone [phone] Care Team Providers Care Grinder Outside Diameter Name Role Phone Julio Mitchell Primary Care Provider [phone] Reason for Visit * Reason Onset Date Comments TRIAGE Non-CE DM Diabetes Management 11/06/2023 Non-CE DM Encounter Details Date Type Department Care Team (Late st Contact Info) Description 11/06/2023 Telephone Centralized Clinical Pharmacy Services, Sabrina Arroyo [address] [place] [address] [address] [place] [address] Radha Kim, [facility], located within [facility] [address] [place] [phone] TRIAGE (Non-CE DM); Diabetes Management (N... Allergies Active Allergy Reactions Criticality Noted Date Comments Penicillins 12/01/2000 Augmentin= rash documented as of this encounter (statuses as of 11/10/2023) Medications Medication Sig Dispensed Refills Start Date End Date Status insulin glargine (LANTUS) 100 UNIT/ML injection 20-25 UNITS AT NIGHT TIME Active Gabapentin 600 MG Tablet 1 TABLET THREE TIMES DAILY Active metFORMIN (GLUCOPHAGE) 500 MG Tablet 1 TABLET THREE TIMES DAILY Active Risedronate Sodium (ACTONEL) 150 MG TABS 1 TABLET PER MONTH Active Vitamin D, Ergocalciferol, 63591 UNITS Capsule 1 CAP EVERY OTHER WEEK [...] as of this encounter (statuses as of 11/10/2023) Active Problems Problem Noted Date Diagnosed Date [...] as of this encounter (statuses as of 11/10/2023) Social History Tobacco Use Types Packs/Day Years [...] encounter Miscellaneous Notes * Telephone Encounter - Kim Radha Taylor, [facility], located [facility] - 11/06/2023 3:58 PM EDT [facility] Non-Clinical [place] [facility] THIS NOTE SERVES FOR TRIAGING PURPOSES ONLY AND IS NOT A PATIENT CONTACT. PATIENT MAY BE CONTACTED FOLLOWING MY ASSESSMENT. DNC list. Previously successful, reassess. Patient was identified to be a candidate for the Non-CE telephonic program based on the following criteria: Pharmacy AND/OR Medical High Cost / A1c < 9.0 / PDC >=80% Patient managed by [facility] provider? No; Is Pertinent Diabetes Info in Care Everywhere? Yes Last A1C: 07/04/23 (Result Date: 8.9%) Diabetes Diagnosis: Type 2 After chart review the following opportunities were identified: Mail Order Invite, Obtain Updated A1c, Therapy Optimization (PRN), and services? Vaccine review Action to be taken by public works technician: This is a follow up call. Patient last spoke with [facility], located [facility] on 01/01/23, schedule an appointment. Needs Language [...] 07/02/2023 Day Supply: 98 Quantity: 45 Radha R Kim, [facility], located [facility] Clinical Pharmacist 11/06/2023, 3:58 PM Electronically signed by Radha Kim [facility], [facility] at 11/06/2023 4:00 PM EDT documented in this encounter Plan of Treatment Health Maintenance Due Date Last Done Comments Pneumococcal Vaccine: Pediatrics (0 to 5 Years) and At-Risk Patients (6 to 64 Years) (1 of 2 - PCV) 1967 Depression Screening 1973 HIV Screening 1976 Diabetic Foot Exam 1979 Hepatitis C Screening 1979 DTaP,Tdap,and Td Vaccines (1 - Tdap) 1980 HPV/Co-Test 1991 Cervical Cancer Screening 03/07/2006 Pap Smear 03/07/2006 03/07/2003, 02/20, 04/01/2001 Cologuard 2006 Colonoscopy 2006 Colorectal Cancer Screening 2006 Fecal Occult Blood Test 2006 Sigmoidoscopy 2006 Zoster Vaccines (1 of 2) 2011 Mammogram 06/28/2022 06/28/2021, 04/10/2021, 06/28/2021, Additional history exists COVID-19 Vaccine ( season) 2022 Influenza Vaccine (FLU shot) (#1) 2023 HbA1c 01/03/2024 07/04/2023, 03/23, 01/07/2023, Additional history exists Albumin/Creatinine Ratio 04/09/20242 024, 05/08/2021, 01/16/2020 GFR 07/03/2024 07/04/2023, 03/23, 01/07/2023, Additional history exists Diabetic Eye Exam 09/13/2024 09/14/2023, , 04/28/2023, Additional history exists Lipid Panel 10/01/2027 09/30/2022, 04/23, 09/09/2019, Additional history exists HPV (Gardasil) Vaccine Aged [...] filedocumented as of this encounter Care Teams Grinder Outside Diameter Relationship Specialty Start Date End Date Julio Mitchell DO PCP - General Family Medicine 05/15/23 documented as of this encounter"
--- OUTSIDE RECORDS SUMMARY | 2023-12-15 09:10 | External Medical Summary ---
Author Name Unknown Address Unknown Organization [id number]:LABORATORY [facility] - [facility] [address] [facility] [address] Laboratory Report Ordering Provider Test Date Status CAPO RESENDEZ 11/12/2023 09:39:28 Final Observation Date Value Abnormality Reference (Units ) Status WBC, Total 11/12/2023 09:39:28 5.69 4.00-10.80 (K/uL) Final RBC 11/12/2023 09:39:28 4.79 3.85-5.15 (M/uL) Final Hemoglobin 11/12/2023 09:39:28 13.6 12.0-15.3 (g/dL) Final HCT 11/12/2023 09:39:28 42.0 36.0-45.2 (%) Final MCV 11/12/2023 09:39:28 87.7 81.5-97.5 (fL) Final MCH 11/12/2023 09:39:28 28.4 27.0-34.0 (pg) Final MCHC 11/12/2023 09:39:28 32.4 32.0-36.0 (g/dL) Final RDW 11/12/2023 09:39:28 12.5 11.5-15.5 (%) Final Platelets 11/12/2023 09:39:28 240 140-400 (K/uL) Final MPV 11/12/2023 09:39:28 11.8 6.6-11.1 (fL) Final Nucleated erythrocytes/100 leukocytes [Ratio] in Blood by Automated count 11/12/2023 09:39:28 0 <=0 (/100 WBCs) Final Performing Location LABORATORY [facility] - [address] [facility] [address]
--- OUTSIDE RECORDS SUMMARY | 2023-12-15 09:10 | External Medical Summary ---
Author Name Unknown Address Unknown Organization [id number]:LABORATORY [facility] - [address] [facility] [address] Laboratory Report Ordering Provider Test Date Status CAPO RESENDEZ 11/12/2023 09:39:28 Final Observation Date Value Abnormality Reference (Units ) Status HbA1C 11/12/2023 09:39:28 10.9 Above high normal 4. 0-5.6 (%) Final The use of HbA1c to monitor glycemic status is based on normal hemoglobin and HbA composition. This test should not be used in patients with abnormal hemoglobin that affects the half life of the red blood cell or the in vivo glycation rates. Glucose, estimated average 11/12/2023 09:39:28 266 Above high normal <126 (mg/dL) Fabrice weston Performing Location LABORATORY [facility] - [address] [facility] [address]
--- OUTSIDE RECORDS SUMMARY | 2023-12-15 09:10 | External Medical Summary | Summary of Care ---
Author Name Unknown Organization [facility] Address [address] [facility] [place] [address] Phone [phone] Care Team Providers Care Gas Cutting Machine Operator Name Role Phone Julio Mitchell Primary Care Provider [phone] Reason for Visit * Reason Onset Date Comments TRIAGE Non-CE DM Diabetes Management 11/06/2023 Non-CE DM Encounter Details Date Type Department Care Team (Late st Contact Info) Description 11/06/2023 Telephone Centralized Clinical Pharmacy Services, Sabrina Arroyo [address] [place] [address] [place] [id number] Radha Kim, [facility] [phone] [place] [phone] TRIAGE (Non-CE DM); Diabetes Management (N... Allergies Active Allergy Reactions Criticality Noted Date Comments Penicillins 12/01/2000 Augmentin= rash documented as of this encounter (statuses as of 11/24/2023) Medications Medication Sig Dispensed Refills Start Date End Date Status insulin glargine (LANTUS) 100 UNIT/ML injection 20-25 UNITS AT NIGHT TIME Active Gabapentin 600 MG Tablet 1 TABLET THREE TIMES DAILY Active metFORMIN (GLUCOPHAGE) 500 MG Tablet 1 TABLET THREE TIMES DAILY Active Risedronate Sodium (ACTONEL) 150 MG TABS 1 TABLET PER MONTH Active Vitamin D, Ergocalciferol, 76412 UNITS Capsule 1 CAP EVERY OTHER WEEK [...] as of this encounter (statuses as of 11/24/2023) Active Problems Problem Noted Date Diagnosed Date [...] as of this encounter (statuses as of 11/24/2023) Social History Tobacco Use Types Packs/Day Years [...] * Telephone Encounter - Kim Radha Taylor, [facility] - 11/06/2023 3:58 PM EDT [facility] Non-Clinical [facility] THIS NOTE SERVES FOR TRIAGING PURPOSES ONLY AND IS NOT A PATIENT CONTACT. PATIENT MAY BE CONTACTED FOLLOWING MY ASSESSMENT. DNC list. Previously successful, reassess. Patient was identified to be a candidate for the Non-CE telephonic program based on the following criteria: Pharmacy AND/OR Medical High Cost / A1c < 9.0 / PDC >=80% Patient managed by [facility] provider? No; Is Pertinent Diabetes Info in Care Everywhere? Yes Last A1C: 07/04/23 (Result Date: 8.9%) Diabetes Diagnosis: Type 2 After chart review the following opportunities were identified: Mail Order Invite, Obtain Updated A1c, Therapy Optimization (PRN), and services? Vaccine review Action to be taken by natural resource technician: This is a follow up call. Patient last spoke with [facility] on 01/01/23, schedule an appointment. Needs Language [...] Supply: 98 Quantity: 45 Radha R Kim, [facility] Clinical Pharmacist 11/06/2023, 3:58 PM documented in [...] filedocumented as of this encounter Care Teams Gas Cutting Machine Operator Relationship Specialty Start Date End Date Julio Mitchell DO PCP - General Family Medicine 05/15/23 11/11/23 documented as of this encounter"
--- OUTSIDE RECORDS SUMMARY | 2023-12-15 09:10 | External Medical Summary | Summary of Care ---
Author Name Unknown Organization [facility] Address [address] [place] [address] Phone [phone] Care Team Providers Care Artificial Flowers Dyer Name Role Phone Julio Mitchell Primary Care Provider [phone] Encounter Details Date Type Department Care Team (Late st Contact Info) Description 07/04/2023 Orders Only Laboratory Patient Service [address] [phone] Jeferson Oneil PA-C [address] [address] Dyslipidemia, goal LDL below 160*; DM coma, type 2 (HCC); Insulin long-term use (HCC) Allergies Active Allergy Reactions Criticality Noted Date Comments Penicillins 12/01/2000 Augmentin= rash documented as of this encounter (statuses as of 07/04/2023) Medications Medication Sig Dispensed Refills Start Date End Date Status insulin glargine (LANTUS) 100 UNIT/ML injection 20-25 UNITS AT NIGHT TIME 0 Active Gabapentin 600 MG Tablet 1 TABLET THREE TIMES DAILY 0 Active metFORMIN (GLUCOPHAGE) 500 MG Tablet 1 TABLET THREE TIMES DAILY 0 Active Risedronate Sodium (ACTONEL) 150 MG TABS 1 TABLET PER MONTH 0 Active Vitamin D, Ergocalciferol, 44647 UNITS Capsule 1 CAP EVERY OTHER WEEK 0 Active Multiple Vitamins-Minerals (OCUVITE ADULT 50+) Capsule 1 CAP DAILY 0 Active traMADol (ULTRAM) 50 MG Tablet As needed 0 06/08/2015 Active Fluocinonide 0.05 % cream As needed 0 11/21/2015 Active lisinopril (PRINIVIL) 10 MG Tablet Take 2 Tabs by mouth daily. 1 TABLET DAILY 60 Tab 0 04/29/2016 Active ELIQUIS 2.5 MG TABS 0 05/09/2016 Activ e oxyCODONE-acetaminophe n 5-325 mg per tab (PERCOCET) 5-325 MG per tablet 0 05/09/2016 Active atorvaSTATin (LIPITOR) 40 MG Tablet Take by mouth daily. 0 12/20/2015 Active documented as of this encounter (statuses as of 07/04/2023) Active Problems Problem Noted Date Diagnosed Date [...] as of this encounter (statuses as of 07/04/2023) Social History Tobacco Use Types Packs/Day Years Used Date Smoking Tobacco: Former Cigarettes 0.5 20 0 05/22/1983 - 05/22/2003 Smokeless Tobacco: Never Alcohol Use Standard Drinks/Week Comments No 0 (1 standard drink = 0.6 oz pur e alcohol) Sex and Gender Information Value Date Recorded Sex Assigned at Not on file Gender Identity Not on file Sexual Orientation Not on file Job Start Date Occupation Industry Not on file Not on file Not on file documented as of this encounter Plan of Treatment Upcoming Encounters Date Type Department Care Team (Late st Contact Info) Description 07/04/2023 10:40 AM EDT Laboratory [facility], [address] [phone] [place], [facility] [address] [place] [address] DM coma, type 2 (HCC); Insulin long-term use (HCC); Dyslipidemia, goal LDL below 160 Pending Results Name Type Priority Associated Diagnoses Date /Time BASIC METABOLIC PANEL Lab Routine DM coma, type 2 (HCC) Insulin long-term use (HCC) Dyslipidemia, goal LDL below 160 07/04/2023 10:23 AM EDT HEMOGLOBIN A1C Lab Routine DM coma, type 2 (HCC) Insulin long-term use (HCC) Dyslipidemia, goal LDL below 160 07/04/2023 10:23 AM EDT Scheduled Orders Name Type Priority Associated Diagnoses Orde r Schedule BASIC METABOLIC PANEL Lab Routine DM coma, type 2 (HCC) Insulin long-term use (HCC) Dyslipidemia, goal LDL below 160 Expected: 07/04/2023, Expires: 07/03/2024 HEMOGLOBIN A1C Lab Routine DM coma, type 2 (HCC) Insulin long-term use (HCC) Dyslipidemia, goal LDL below 160 Expected: 07/04/2023, Expires: 07/03/2024 Health Maintenance Due Date Last Done Comments [...] (1 of 2) 2011 Mammogram 06/28/2022 06/28/2021, 0410/2021, 06/28/2021, Additional history exists COVID-19 Vaccine (2022-24 season) 2022 HbA1c 10/08/2023 04/09/2023, 12/21, 09/30/2022, Additional history exists Influenza Vaccine (FLU shot) (Season Ended) 2023 Diabetic Eye Exam 02/12/2024 02/11/2023, , 01/19/2023, Additional history exists Albumin/Creatinine Ratio 04/09/2024 024, 05/08/2021, 01/16/2020 GFR 04/09/2024 04/09/2023, 12/21, 09/30/2022, Additional history exists Lipid Panel 10/01/2027 09/30/2022, 04/23, 09/09/2019, Additional history exists GARDASIL-HPV IMMUNIZATION SERIES Aged Out No longer eligible based on patient's age to complete this topic Hepatitis B Aged Out No longer eligi ble based on patient's age to complete this topic MENINGOCOCCAL (MENACTRA/MENVEO) Aged Out No longer eligible based on patient's age to complete this topic documented as of this encounter Medical Devices Not on filedocumented as of this encounter Visit Diagnoses Diagnosis DM coma, type 2 (HCC) Type II or unspecified type diabetes mellitus with other coma, not stated as uncontrolled Insulin long-term use (HCC) Encounter for long-term (current) use of insulin Dyslipidemia, goal LDL below 160 Other and unspecified hyperlipidemia Dyslipidemia, goal LDL below 160- Primary Other and unspecified hyperlipidemia DM coma, type 2 (HCC) Type II or unspecified type diabetes mellitus with other coma, not stated as uncontrolled Insulin long-term use (HCC) Encounter for long-term (current) use of insulin documented in this encounter Care Teams Artificial Flowers Dyer Relationship Specialty Start Date End Date Julio Mitchell DO 1 [facility] [place] [address] [place] [id number] PCP - General Family Medicine 05/15/23 documented as of this encounter
--- OUTSIDE RECORDS SUMMARY | 2023-12-15 09:10 | External Medical Summary | Summary of Care ---
Author Name Unknown Organization [facility] Address [address] [place] [address] Phone [phone] Care Team Providers Care Hypercil Core Transformer Assembler Name Role Phone ClariceJeferson PA-C Primary Care Provider + Reason for Visit * Reason Comments Outpatient Testing Encounter Details Date Type Department Care Team (Late st Contact Info) Description 11/12/2023 9:40 AM EDT Laboratory Laboratory Patient Service [address] [phone] [place], [facility] [address] [place] [address] DM coma, type 2 (HCC); Insulin long-term use (HCC); Dyslipidemia, goal to be determined; HTN, goal to be determined Allergies Active Allergy Reactions Criticality Noted Date Comments Penicillins 12/01/2000 Augmentin= rash documented as of this encounter (statuses as of 11/12/2023) Medications Medication Sig Dispensed Refills Start Date End Date Status insulin glargine (LANTUS) 100 UNIT/ML injection 20-25 UNITS AT NIGHT TIME Active Gabapentin 600 MG Tablet 1 TABLET THREE TIMES DAILY Active metFORMIN (GLUCOPHAGE) 500 MG Tablet 1 TABLET THREE TIMES DAILY Active Risedronate Sodium (ACTONEL) 150 MG TABS 1 TABLET PER MONTH Active Vitamin D, Ergocalciferol, 85927 UNITS Capsule 1 CAP EVERY OTHER WEEK [...] as of this encounter (statuses as of 11/12/2023) Active Problems Problem Noted Date Diagnosed Date [...] as of this encounter (statuses as of 11/12/2023) Social History Tobacco Use Types Packs/Day Years [...] as of this encounter Plan of Treatment Pending Results Name Type Priority Associated Diagnoses Date /Time CBC WITH WBC DIFFERENTIAL Lab Routine DM coma, type 2 (HCC) Insulin long-term use (HCC) Dyslipidemia, goal to be determined HTN, goal to be determined 11/12/2023 9:39 AM EDT LIPID PANEL WITHOUT DIRECT LDL Lab Routine DM coma, type 2 (HCC) Insulin long-term use (HCC) Dyslipidemia, goal to be determined 11/12/2023 9:39 AM EDT COMPREHENSIVE METABOLIC PANEL Lab STAT DM coma, type 2 (HCC) Insulin long-term use (HCC) Dyslipidemia, goal to be determined HTN, goal to be determined 11/12/2023 9:39 AM EDT HEMOGLOBIN A1C Lab Routine DM coma, type 2 (HCC) Insulin long-term use (HCC) 11/12/2023 9:39 AM EDT CBC Lab Routine DM coma, type 2 (HCC) Insulin long-term use (HCC) Dyslipidemia, goal to be determined HTN, goal to be determined 11/12/2023 9:39 AM EDT DIFFERENTIAL, AUTOMATED Lab Routine DM coma, type 2 (HCC) Insulin long-term use (HCC) Dyslipidemia, goal to be determined HTN, goal to be determined 11/12/2023 9:39 AM EDT Health Maintenance Due Date Last Done Comments [...] (1 of 2) 2011 Mammogram 06/28/2022 06/28/2021, 10/2021, 06/28/2021, Additional history exists COVID-19 Vaccine ( season) 2022 Influenza Vaccine (FLU shot) (#1) 2023 HbA1c 01/03/2024 07/04/2023, 03/23, 01/07/2023, Additional history exists Albumin/Creatinine Ratio 04/09/2024 024, 05/08/2021, 01/16/2020 GFR 07/03/2024 07/04/2023, 03/23, [...] long-term (current) use of insulin Dyslipidemia, goal to be determined Other and unspecified hyperlipidemia HTN, goal to be determined Unspecified essential hypertension documented in this encounter Care Teams Hypercil Core Transformer Assembler Relationship Specialty Start Date End Date Jeferson Oneil PA-C 1 [facility] [address] [place] [address] PCP - General Physician Freelance Recruiter 11/12/23 documented as of this encounter
--- OUTSIDE RECORDS SUMMARY | 2023-12-15 09:10 | External Medical Summary | Summary of Care ---
Author Name Unknown Organization [facility] Address [address] [place] [address] Phone [phone] Care Team Providers Care Security Systems Administrator Name Role Phone ClariceJeferson PA-C Primary Care Provider + Reason for Visit * Reason Comments Outpatient Testing Encounter Details Date Type Department Care Team (Late st Contact Info) Description 11/12/2023 9:40 AM EDT Laboratory Laboratory Patient Service [address] [phone] [place], [facility] [address] [place] [address] DM coma, type 2 (HCC); Insulin long-term [...] TABLET PER MONTH Active Vitamin D, Ergocalciferol, 30830 UNITS Capsule 1 CAP EVERY OTHER WEEK [...] hypertension documented in this encounter Care Teams Security Systems Administrator Relationship Specialty Start Date End Date Jeferson Oneil PA-C 1 [facility] [address] [facility] [address] [place] [address] PCP - General Physician Executive Office Manager 11/12/23 documented as of this encounter
--- OUTSIDE RECORDS SUMMARY | 2023-12-15 09:10 | External Medical Summary ---
Author Name Unknown Address Unknown Organization [id number]:[facility] [place] [address] [facility] [address] Laboratory Report Ordering Provider Test Date Status CAPO RESENDEZ 11/12/2023 09:39:28 Final Observation Date Value Abnormality Reference (Units ) Status BUN 11/12/2023 09:39:28 22 Above high normal 6-20 (mg/dL) Final Creatinine 11/12/2023 09:39:28 0.8 0.5-1.0 (mg/dL) Final Glomerular filtration rate/1.73 sq M.predicted [Volume Rate/Area] in Serum, Plasma or Blood by Creatinine-based formula (CKD-EPI) 11/12/2023 09:39:28 85 >=60 (mL/min) Final eGFR is calculated based on the CKD-EPI 2020 equation. Sodium 11/12/2023 09:39:28 141 135-146 (m mol/L) Final Potassium 11/12/2023 09:39:28 4.3 3.5-5.1 (m mol/L) Final Cl 11/12/2023 09:39:28 105 98-107 (mm ol/L) Final CO2 11/12/2023 09:39:28 27 22-32 (mmo l/L) Final Anion gap 11/12/2023 09:39:28 9 7-15 (mmol /L) Final Glucose 11/12/2023 09:39:28 122 Above high normal 70 -120 (mg/dL) Final Albumin 11/12/2023 09:39:28 4.2 3.8-5.0 (g /dL) Final AST (Aspartate aminotransferase) 11/12/2023 09:39:28 19 10-35 (U/L) Fin al Alk Phos 11/12/2023 09:39:28 99 35-130 (U/ L) Final Bilirubin, Total 11/12/2023 09:39:28 0.3 <=1 .2 (mg/dL) Final Calcium 11/12/2023 09:39:28 9.5 8.4-10.2 ( mg/dL) Final Protein 11/12/2023 09:39:28 6.3 6.0-8.3 (g /dL) Final ALT (Alanine aminotransferase) 11/12/2023 09:39:28 15 10-35 (U/L) Fabrice weston Performing Location [facility] [place] - [address] [facility] [address]
--- OUTSIDE RECORDS SUMMARY | 2023-12-15 09:10 | External Medical Summary ---
Author Name Unknown Address Unknown Organization [id number] [place] [address] [facility] [place] [address] Laboratory Report Ordering Provider Test Date Status CAPO RESENDEZ 11/12/2023 09:39:28 Final Observation Date Value Abnormality Reference (Units ) Status SYNC LEUKOCYTES IN BLOOD BY AUTOMATED COUNT 11/12/2023 09:39:28 5.69 4.00-10.80 (K/uL) Final Segs 11/12/2023 09:39:28 65.5 40.0-75.0 (%) Final Lymphs % 11/12/2023 09:39:28 20.7 18.0-42.0 (%) Final Monos 11/12/2023 09:39:28 9.3 1.0-11.0 (%) Final Eosinophils 11/12/2023 09:39:28 3.2 0.0-6.0 (%) Final Basos 11/12/2023 09:39:28 0.9 0.0-2.0 (%) Final Immature Granulocyte, Percent 11/12/2023 09:39:28 0.4 0.0-2.0 (%) Final Absolute Segs 11/12/2023 09:39:28 3.73 1.80-7.70 (K/uL) Final Lymphs, absolute 11/12/2023 09:39:28 1.18 1.00-4.80 (K/ul) Final Monos, Abs 11/12/2023 09:39:28 0.53 0.00-1.10 (K/uL) Final Eos, Abs 11/12/2023 09:39:28 0.18 0.00-0.70 (K/uL) Final Basos, Abs 11/12/2023 09:39:28 0.05 0.00-0.20 (K/uL) Final Immature Granulocytes, Number 11/12/2023 09:39:28 0.02 0.00-0.20 (K/uL) Final Performing Location [facility] [place] [address] [facility] [address]
--- OUTSIDE RECORDS SUMMARY | 2023-12-15 09:10 | External Medical Summary ---
Author Name Unknown Address Unknown Organization [id number][facility] [place] [address] [facility] [place] [address] Laboratory Report Ordering Provider Test Date Status CAPO RESENDEZ 11/12/2023 09:39:28 Final Observation Date Value Abnormality Reference (Units ) Status Triglyceride 11/12/2023 09:39:28 70 <=174 ( mg/dL) Final Triglyceride Reference Range s (mg/dL):
<150 Acceptable
150-174 Borderline high
175-499 High
>=500 Very high Cholesterol 11/12/2023 09:39:28 186 <200 (mg /dL) Final Total Cholesterol Reference Ranges (mg/dL):
<200 Desirable
200-239 Borderline high
>=240 High HDL 11/12/2023 09:39:28 58 >49 (mg/dL ) Final HDL Cholesterol Reference Ra nges (mg/dL):
>=60 High (Desirable)
<50 Low (Undesirable) For Females
<40 Low (Undesirable) For Males NON-HDL CHOLESTEROL 11/12/2023 09:39:28 128 <=159 (mg/dL) Final Non-HDL Cholesterol Referenc e Range (mg/dL):
<100 Target level for high risk ASCVD patient
<130 Optimal for general population
130-159 Near optimal for general population
160-189 Borderline High
190-219 High
>=220 Very High LDL, (calculated) 11/12/2023 09:39:28 114 <= 129 (mg/dL) Final LDL Cholesterol Reference Ra nges (mg/dL):
<70 Target level for high risk ASCVD patient
<100 Optimal for general population
100-129 Near optimal for general population
130-159 Borderline high
160-189 High
>=190 Very high Performing Location [facility] [place] [address] [facility] [address]
--- OUTSIDE RECORDS SUMMARY | 2023-12-15 09:10 | External Medical Summary ---
Author Name Unknown Address Unknown Organization [id number]:[facility] [place] [address] [facility] [address] [facility] [address] [place] [address] Laboratory Report Ordering Provider Test Date Status ANA HUERTAS 07/04/2023 10:23:13 Final Observation Date Value Abnormality Reference (Units ) Status BUN 07/04/2023 10:23:13 16 6-20 (mg/dL) Final Creatinine 07/04/2023 10:23:13 0.9 0.5-1.0 (mg/dL) Final Glomerular filtration rate/1.73 sq M.predicted [Volume Rate/Area] in Serum, Plasma or Blood by Creatinine-based formula (CKD-EPI) 07/04/2023 10:23:13 77 >=60 (mL/min) Final eGFR is calculated based on the CKD-EPI 2020 equation Sodium 07/04/2023 10:23:13 140 135-146 (m mol/L) Final Potassium 07/04/2023 10:23:13 4.4 3.5-5.1 (m mol/L) Final Cl 07/04/2023 10:23:13 103 98-107 (mm ol/L) Final CO2 07/04/2023 10:23:13 28 22-32 (mmo l/L) Final Anion gap 07/04/2023 10:23:13 9 7-15 (mmol /L) Final Glucose 07/04/2023 10:23:13 155 Above high normal 70 -120 (mg/dL) Final Calcium 07/04/2023 10:23:13 9.3 8.4-10.2 ( mg/dL) Final Performing Location [facility] [place] [address] [place] [address]
--- OUTSIDE RECORDS SUMMARY | 2023-12-15 09:10 | External Medical Summary | Summary of Care ---
Author Name Unknown Organization [facility] Ambulatory Address [address] [place] [address] Phone Care Team Providers Care Sandwich Machine Operator Name Role Phone Clarice Kahn PA-C, Jeferson Primary Care Provider [phone] Provider, Generic External Data Unavailable Unavailable Source [...] except as provided at sections 2.12(c)(5) and 2.65.[facility] Ambulatory Reason for Referral * Radiology - Authorized Specialty Diagnoses / Procedures Referred By Contsaúl t Referred To Contact Diagnoses Encounter for screening mammogram for malignant neoplasm of breast Procedures BI MAMMOGRAM DIGITAL SCREENING WITH TOMOSYNTHESIS BILATERAL Jeferson Oneil PA-C [address] [place] [id number] Referral ID Status Reason Start Date Expiration Date V isits Requested Visits Authorized [id number] Authorized 07/10/2023 1 1 Reason for Visit * Reason Comments Routine Follow Up Encounter Details Date Type Department Care Team (Latest Contact Info) Description 07/10/2023 8:30 AM EDT Office Visit [facility] Cheryl [address] [place] [id number] Paint Spray Tender: Cadence Panda John V, PA-C [address] [place] [id number] Type 2 diabetes mellitus with other specified complication, with long-term current use of insulin (HCC) (Primary Dx); Hyperlipidemia, unspecified hyperlipidemia type; Benign hypertension; Neuropathy; Charcot's arthropathy; Encounter for screening mammogram for malignant neoplasm of breast Allergies Active Allergy Reactions Criticality Noted Date Comments Meloxicam High Elevates BP Penicillins 12/01/2000 Augmentin= rash documented as of this encounter (statuses as of 07/21/2023) Medications Medication Sig Dispensed Refills Start Date End Date Status fluticasone (FLONASE) 50 mcg/actuation nasal spray Use 2 sprays in each nostril daily as needed Active blood glucose test strip Test Blood sugar one a day Active ALLERGY RELIEF, LORATADINE, 10 mg oral tablet TAKE 1 TABLET BY MOUTH ONCE DAILY FOR 30 DAYS 90 tablet 1 12/14/2018 Active Additional Information Patient taking differently: 10 mg oral Daily PRN, Reported on 12/27/2021 insulin [place], Disposable, (JENNIE PEN NEEDLE) 32 gauge x 5/32" needle Use daily as directed 30 each 5 05/10/2021 Active traMADoL (ULTRAM) 50 mg oral tablet Take 1 tablet by mouth every 6 hours as needed for pain 20 tablet 2 08/23/2021 Active fluocinonide (LIDEX) 0.05 % topical cream Apply topically 2 times a day PRN 30 g 3 07/04/2022 Active Blood-Glucose Sensor (DEXCOM G7 SENSOR) misc device Use daily as directed to monitor BS Dx E11.69 3 each 3 12/23/2022 Active Blood-Glucose Meter,Continuous (DEXCOM G7 MARKETING AUTOMATION MANAGER) misc misc Use daily as directed to monitor blood glucose . E11.69 1 each 12/23/2022 Active insulin aspart U-100 (NOVOLOG) 100 unit/mL (3 mL) subcutaneous flexpen INJECT 3 UNITS TWICE DAILY BEFORE MEAL(S) 15 mL 02/20/2023 Active ergocalciferol (VITAMIN D2) 1,250 mcg (50,000 unit) oral capsule TAKE 1 CAPSULE BY MOUTH EVERY TWO WEEKS DIRECTED 6 capsule 1 04/15/2023 Active lisinopriL 30 mg oral tablet Take 1 tablet by mouth once daily 90 tablet 1 04/20/2023 Active metoprolol succinate (TOPROL-XL) 50 mg oral extended-release tablet Take 1 tablet by mouth once daily 90 tablet 1 05/05/2023 Active LANTUS SOLOSTAR U-100 INSULIN 100 unit/mL (3 mL) subQ subcutaneous pen INJECT 46 UNITS SUBCUTANEOUSLY IN THE MORNING 45 mL 1 06/26/2023 Active JARDIANCE 10 mg oral tablet Take 1 tablet by mouth daily 04/27/2023 Active risedronate (ACTONEL) 150 mg oral tablet TAKE 1 TABLET BY MOUTH ONCE EVERY MONTH DIRECTED 4 tablet 2 07/10/2023 Active gabapentin (NEURONTIN) 600 mg oral tablet Take 1 tablet by mouth 2 times a day 180 tablet 1 07/10/2023 Active risedronate (ACTONEL) 150 mg oral tablet TAKE 1 TABLET BY MOUTH ONCE EVERY MONTH DIRECTED 4 tablet 5 01/15/2021 07/10/19 24 Discontinu ed(Reorder ) gabapentin (NEURONTIN) 600 mg oral tablet Take 1 tablet by mouth 2 times a day 180 tablet 1 07/04/2022 07/10/19 24 Discontinu ed(Reorder ) documented as of this encounter (statuses as of 07/21/2023) Active Problems Problem Noted Date Diagnosed Date Benign hypertension 2018 Diabetes mellitus 2018 Neuropathy 2018 Charcot's arthropathy 2018 documented as of this encounter (statuses as of 07/21/2023) Social History Tobacco Use Types Packs/Day Years [...] of Binge Drinking Not on file 08/21 [place] [facility] Occup[facility] - Occupational Stress Questionnaire Answer Date Recorded [...] Answer Date Recorded PHQ-2 Screening Result Negative PHQ Result Negative 04/10/2023 Sex and Gender Information Value Date Recorded Sex Assigned at Not on file Gender Identity Not on file Sexual Orientation Not on file documented as of this encounter Last Filed Vital Signs Vital Sign Reading Time Taken Comments Blood Pressure 178/100 07/10/2023 8:31 AM EDT Pulse 63 07/10/2023 8:31 AM EDT Temperature 36.2 C (97.2 F) 07/10/2023 8:31 AM ED T Respiratory Rate 20 07/10/2023 8:31 AM EDT Oxygen Saturation 98% 07/10/2023 8:31 AM EDT Inhaled Oxygen Concentration - - Weight 87.4 kg (192 lb 11.2 oz) 07/10/2023 8:31 AM EDT Height 156.2 cm (5' 1.5") 07/10/2023 8:31 AM EDT Body Mass Index 35.82 07/10/2023 8:31 AM EDT documented in this encounter Progress Notes * Jeferson Oneil PA-C - 07/10/2023 8:30 AM EDT Subjective CC: Chief Complaint [...] temporarily. 2) DM 2 -- HgbA1C is improved at 8.9. She just started back on the Jardiance last month after getting coupon for website. She did not get the Ozempic filled due to cost. She has made some significantlife changes and dietary changes. She is currently taking Lantus 40 units daily. She has had 3 episodes of hypoglycemia -- about 45. Her bilateral peripheral neuropathy of feet has persisted. She is only taking the gabapentin BID and that seems to work well for her. She stopped taking metformin dueto GI side effects and her diarrhea is [...] Age of Onset Heart Disease Biological Father CT Diabetes Brother Social History Socioeconomic History Marital status: Single Tobacco Use Smoking status: Former Passive exposure: Never Smokeless tobacco: Never Vaping Use Vaping status: never used Substance and Sexual Activity Alcohol use: No Drug use: Never Sexual activity: Never Outpatient Medications Marked as Taking for the 07/10/23 encounter (Office Visit) with Jeferson Oneil PA-C Medication Sig Dispense Refill ALLERGY RELIEF, LORATADINE, 10 mg oral tablet TAKE 1 TABLET BY MOUTH ONCE DAILY FOR 30 DAYS (Patient taking differently: Take 10 mg by mouth daily as needed) 90 tablet 1 blood glucose test strip Test Blood sugar one a day Blood-Glucose Meter,Continuous (DEXCOM G7 MARKETING AUTOMATION MANAGER) misc misc Use daily as directed to monitor blood glucose . E11.69 1 each 0 Blood-Glucose Sensor (DEXCOM G7 SENSOR) misc device Use daily as directed to monitor BS Dx E11.69 3 each 3 ergocalciferol (VITAMIN D2) 1,250 mcg (50,000 [...] DAILY BEFORE MEAL(S) 15 mL 0 insulin [place], Disposable, (JENNIE PEN NEEDLE) 32 gauge x 5/32" needle Use daily as directed 30each 5 JARDIANCE 10 mg oral tablet Take 1 tablet by mouth daily LANTUS SOLOSTAR U-100 INSULIN 100 unit/mL (3 mL) subQ subcutaneous pen INJECT 46 UNITS SUBCUTANEOUSLY IN THE MORNING 45 mL 1 lisinopriL 30 mg oral tablet Take 1 tablet by mouth once daily 90 tablet 1 metoprolol succinate (TOPROL-XL) 50 mg oral extended-release tablet Take 1 tablet by mouth oncedaily 90 tablet 1 risedronate (ACTONEL) 150 mg oral tablet TAKE 1 TABLET BY MOUTH ONCE EVERY MONTH DIRECTED 4 tablet 2 traMADoL (ULTRAM) 50 mg oral tablet Take 1 tablet by mouth every 6 hours as needed for pain 20 tablet 2 Allergies Allergen Reactions Meloxicam Elevates BP Penicillins Augmentin= rash Objective BP (!) 178/100 | Pulse 63 | Temp 97.2 F (36.2 C) (Temporal) | Resp 20 | Ht 5' 1.5" (156.2 cm) |Wt 192 lb 11.2 oz (87.4 kg) | SpO2 98% | BMI 35.82 kg/m Physical Exam Vitals reviewed. Constitutional: General: [...] Consider adding amlodipine and statin next visit. Should have improvement since starting back on the Jardiance. Continue lantus 40 units daily. Starttaking that in the morning. Remain off the [...] long-term current use of insulin (HCC) E11.69 CBC (INCLUDES DIFFERENTIAL AND PLATELETS) Z79.4 LIPID PANEL COMPREHENSIVE METABOLIC PANEL (CMP) HEMOGLOBIN A1C (HGBA1C) 2. Hyperlipidemia, unspecified hyperlipidemia type E78.5 CBC (INCLUDES DIFFERENTIAL AND PLATELETS) LIPID PANEL COMPREHENSIVE METABOLIC PANEL (CMP) 3. Benign hypertension I10 CBC (INCLUDES DIFFERENTIAL AND PLATELETS) COMPREHENSIVE METABOLIC PANEL (CMP) 4. Neuropathy G62.9 5. Charcot's arthropathy M14.60 6. Encounter for screening mammogram for malignant neoplasm of breast Z12.31 BI MAMMOGRAM DIGITAL SCREENING WITH TOMOSYNTHESIS BILATERAL Orders Placed This Encounter BI MAMMOGRAM DIGITAL SCREENING WITH TOMOSYNTHESIS BILATERAL CBC (INCLUDES DIFFERENTIAL AND PLATELETS) LIPID PANEL COMPREHENSIVE METABOLIC PANEL (CMP) HEMOGLOBIN A1C (HGBA1C) risedronate (ACTONEL) 150 mg oral tablet gabapentin (NEURONTIN) 600 mg oral tablet Return in about 4 months (around 11/09/2023). documented in this encounter Nursing Notes * Angie Ramírez LPN - 07/10/2023 8:30 AM EDT Routine check up- ? osteoporosis documented in this encounter Plan of Treatment Scheduled Orders Name Type Priority Associated Diagnoses Orde r Schedule CBC (INCLUDES DIFFERENTIAL AND PLATELETS) Lab Routine Type 2 diabetes mellitus with other specified complication, with long-term current use of insulin (HCC) Hyperlipidemia, unspecified hyperlipidemia type Benign hypertension 1 Occurrences starting 07/10/2023 until 07/09/2024 LIPID PANEL Lab Routine Type 2 diabetes mellitus with other specified complication, with long-term current use of insulin (HCC) Hyperlipidemia, unspecified hyperlipidemia type 1 Occurrences starting 07/10/2023 until 07/09/2024 COMPREHENSIVE METABOLIC PANEL (CMP) Lab Routine Type 2 diabetes mellitus with other specified complication, with long-term current use of insulin (HCC) Hyperlipidemia, unspecified hyperlipidemia type Benign hypertension 1 Occurrences starting 07/10/2023 until 07/09/2024 HEMOGLOBIN A1C (HGBA1C) Lab Routine Type 2 diabetes mellitus with other specified complication, with long-term current use of insulin (HCC) 1 Occurrences starting 07/10/2023 until 07/09/2024 BI MAMMOGRAM DIGITAL SCREENING WITH TOMOSYNTHESIS BILATERAL Imaging Routine Encounter for screening mammogram for malignant neoplasm of breast 1 Occurrences starting 07/10/2023 until 07/09/2024 Health Maintenance Due Date Last Done Comments Cologuard 1961 Colonoscopy 1961 Fecal Occult Blood Testing 1961 Sigmoidoscopy 1961 DTaP/Tdap/Td Vaccine (1 - Tdap) 1980 Colposcopy 1982 HPV/Cotest 1982 Pap Smear 1982 Hepatitis B Vaccine (1 of 3 - Risk 3-dose series) 2021 Urine Albumin Battery 05/08/2022 05/08/2021 Mammogram 06/29/2023 06/28/2021, 04/22/2019 Diabetic Foot Exam 07/05/2023 07/04/2022, 1 , 09/16/2019 Lipid Profile 10/01/2023 09/30/2022, 04/23, 09/09/2019 Controlled Substance Agreement 10/04/2023 10/03/2022, 07/04/2022, 08/31/2020 HbA1c 01/03/2024 07/04/2023, 12/21, 09/30/2022, Additional history exists Billable Depression Screen 01/10/202401/09, 12/27/2021, 08/31/2020 COVID-19 Vaccine ( season) 2024 Postponed from 11/21/2022 (Recommended Yet Declined) Cervical Cancer Screening 01/10/2024 Po stponed from 1982 (Recommended) Flu Vaccine (Season Ended) 2024 P ostponed from 12/22/2023 (Recommended Yet Declined) Full Body Skin Exam 01/10/2024 01/09/2023 Pneumococcal Vaccine (1 of 2 - PCV) 01/10/2024 Postponed from 1967 (Recommended Yet Declined) Shingles Vaccine (Recombinant) (1 of 2) 01/10/2024 Postponed from 2011 (Recommended Yet Declined) Colorectal Cancer Screening 01/13/2024 Postponed from 1961 (Recommended Yet Declined) Diabetic Retinal Exam 02/12/2024 02/11/2023 , 11/19/2022, 04/03/2022 Creatinine Serum 07/03/2024 07/04/2023, , 01/07/2023, Additional history exists Potassium 07/03/2024 07/04/2023, 03/23, 01/07/2023, Additional history exists Advance Directives 2025 Postponed from 1979 (Medical Reason) Depression Screening Completed 04/10/2023, 01/10/20 HIV Screening Discontinued Hepatitis C Screen Discontinued documented as of this encounter Visit Diagnoses Diagnosis Type 2 diabetes mellitus with other specified complication, with long-term current use of insulin (HCC)- Primary Hyperlipidemia, unspecified hyperlipidemia type Benign hypertension Essential hypertension, benign Neuropathy Mononeuritis of unspecified site Charcot's arthropathy Tabes dorsalis Encounter for screening mammogram for malignant neoplasm of breast Other screening mammogram documented in this encounter Care Teams Sandwich Machine Operator Relationship Specialty Start Date End Date Jeferson Oneil PA-C 1 [facility] [address] [place] [id number] PCP - General Family Medicine 12/14/17 Provider, Generic External Data 01/20/20 documented as of this encounter
--- OUTSIDE RECORDS SUMMARY | 2023-12-15 09:10 | External Medical Summary | Summary of Care ---
Author Name Unknown Organization [facility] Address [address] [place] [address] Phone [phone] Care Team Providers Care Lawn Sprinkler Installer Name Role Phone Julio Mitchell Primary Care Provider [phone] Reason for Visit * Reason Comments Outpatient Testing Encounter Details Date Type Department Care Team (Late st Contact Info) Description 07/04/2023 10:40 AM EDT Laboratory Laboratory Patient Service [address] [phone] [facility] [address] [place] [id number] DM coma, type 2 (HCC); Insulin long-term use (HCC); Dyslipidemia, goal LDL below 160 Allergies Active Allergy Reactions Criticality Noted Date [...] PER MONTH 0 Active Vitamin D, Ergocalciferol, 40976 UNITS Capsule 1 CAP EVERY OTHER WEEK [...] LDL below 160 07/04/2023 10:23 AM EDT Health Maintenance Due Date Last [...] history exists COVID-19 Vaccine ( season) 2022 HbA1c 10/08/2023 04/09/2023, 12/21, 09/30/2022, Additional history exists Influenza Vaccine (FLU shot) (Season Ended) 2023 Diabetic Eye Exam 02/12/2024 02/11/2023, , 01/19/2023, Additional history exists Albumin/Creatinine Ratio 04/09/20242 024, 05/08/2021, 01/16/2020 GFR 04/09/2024 04/09/2023, 12/21, [...] LDL below 160 Other and unspecified hyperlipidemia documented in this encounter Care Teams Lawn Sprinkler Installer Relationship Specialty Start Date End Date Julio Mitchell DO [address] [address] [place] [id number] PCP - General Family Medicine 05/15/23 documented as of this encounter
--- OUTSIDE RECORDS SUMMARY | 2023-12-15 09:10 | External Medical Summary | Summary of Care ---
Author Name Unknown Organization [facility] Address [address] [place] [facility] [place] [address] Phone [phone] Care Team Providers Care Hydrographer Name Role Phone Julio Mitchell Primary Care Provider [phone] Reason for Visit * Reason Onset Date Comments TRIAGE Non-CE DM Diabetes Management 11/06/2023 Non-CE DM Encounter Details Date Type Department Care Team (Late st Contact Info) Description 11/06/2023 Telephone Centralized Clinical Pharmacy Services, Sabrina Arroyo [address] [place] [address] [place] [address] Radha Kim, [facility] [phone] [place] [id number] TRIAGE (Non-CE DM); Diabetes Management (N... Allergies Active Allergy Reactions Criticality Noted Date Comments Penicillins 12/01/2000 Augmentin= rash documented as of this encounter (statuses as of 11/06/2023) Medications Medication Sig Dispensed Refills Start Date End Date Status insulin glargine (LANTUS) 100 UNIT/ML injection 20-25 UNITS AT NIGHT TIME Active Gabapentin 600 MG Tablet 1 TABLET THREE TIMES DAILY Active metFORMIN (GLUCOPHAGE) 500 MG Tablet 1 TABLET THREE TIMES DAILY Active Risedronate Sodium (ACTONEL) 150 MG TABS 1 TABLET PER MONTH Active Vitamin D, Ergocalciferol, 51178 UNITS Capsule 1 CAP EVERY OTHER WEEK [...] as of this encounter (statuses as of 11/06/2023) Active Problems Problem Noted Date Diagnosed Date [...] as of this encounter (statuses as of 11/06/2023) Social History Tobacco Use Types Packs/Day Years [...] * Telephone Encounter - Kim Radha Taylor, [facility] - 11/06/2023 3:58 PM EDT [facility] Non-Clinical [facility] THIS NOTE SERVES FOR TRIAGING PURPOSES ONLY AND IS NOT A PATIENT CONTACT. PATIENT MAY BE CONTACTED FOLLOWING MY ASSESSMENT. DNC list. Previously successful, reassess. Patient was identified to be a candidate for the Non-CE telephonic program based on the following criteria: Pharmacy AND/OR Medical High Cost / A1c < 9.0 / PDC >=80% Patient managed by [facility] provider? No; Is Pertinent Diabetes Info in Care Everywhere? Yes Last A1C: 07/04/23 (Result Date: 8.9%) Diabetes Diagnosis: Type 2 After chart review the following opportunities were identified: Mail Order Invite, Obtain Updated A1c, Therapy Optimization (PRN), and services? Vaccine review Action to be taken by compressor service technician: This is a follow up call. Patient last spoke with [facility] on 01/01/23, schedule an appointment. Needs Language [...] Supply: 98 Quantity: 45 Radha R Kim, [facility] Clinical Pharmacist 11/06/2023, 3:58 PM documented in [...] filedocumented as of this encounter Care Teams Hydrographer Relationship Specialty Start Date End Date Julio Mitchell DO PCP - General Family Medicine 05/15/23 documented as of this encounter"
--- OUTSIDE RECORDS SUMMARY | 2023-12-15 09:10 | External Medical Summary | Summary of Care ---
Author Name Unknown Organization [facility] Address [address] [place] [address] Phone [phone] Care Team Providers Care Subeditor Name Role Phone Julio Mitchell DO Primary Care Provider [phone] Encounter Details Date Type Department Care Team (Late st Contact Info) Description 07/28/2023 Population Health External Data Unspecified Department Allergies Active Allergy Reactions Criticality Noted Date Comments Penicillins 12/01/2000 Augmentin= rash documented as of this encounter (statuses as of 07/28/2023) Medications Medication Sig Dispensed Refills Start Date End Date Status insulin glargine (LANTUS) 100 UNIT/ML injection 20-25 UNITS AT NIGHT TIME 0 Active Gabapentin 600 MG Tablet 1 TABLET THREE TIMES DAILY 0 Active metFORMIN (GLUCOPHAGE) 500 MG Tablet 1 TABLET THREE TIMES DAILY 0 Active Risedronate Sodium (ACTONEL) 150 MG TABS 1 TABLET PER MONTH 0 Active Vitamin D, Ergocalciferol, 25131 UNITS Capsule 1 CAP EVERY OTHER WEEK [...] as of this encounter (statuses as of 07/28/2023) Active Problems Problem Noted Date Diagnosed Date [...] as of this encounter (statuses as of 07/28/2023) Social History Tobacco Use Types Packs/Day Years [...] as of this encounter Plan of Treatment Health Maintenance [...] ( season) 2022 Influenza Vaccine (FLU shot) (Season Ended) 2023 HbA1c 01/03/2024 07/04/2023, 03/23, 01/07/2023, Additional history exists Diabetic Eye Exam 02/12/2024 02/11/2023, , 01/19/2023, Additional history exists Albumin/Creatinine Ratio 04/09/2024 024, 05/08/2021, 01/16/2020 GFR 07/03/2024 07/04/2023, 03/23, 01/07/2023, Additional history exists Lipid Panel 10/01/2027 09/30/2022, [...] filedocumented as of this encounter Care Teams Subeditor Relationship Specialty Start Date End Date Julio Mitchell DO [address] [place] [id number] PCP - General Family Medicine 05/15/23 documented as of this encounter
--- OUTSIDE RECORDS SUMMARY | 2023-12-15 09:10 | External Medical Summary ---
Author Name Unknown Address Unknown Organization K01:[facility] [address] [facility] [address] Laboratory Report Ordering Provider Test Date Status ANA HUERTAS 07/04/2023 10:23:13 Final Observation Date Value Abnormality Reference (Units ) Status HbA1C 07/04/2023 10:23:13 8.9 Above high normal 4. 0-5.6 (%) Final The use of HbA1c to monitor glycemic status is based on normal hemoglobin and HbA composition. This test should not be used in patients with abnormal hemoglobin that affects the half life of the red blood cell or the in vivo glycation rates. Glucose, estimated average 07/04/2023 10:23:13 209 Above high normal <126 (mg/dL) Fabrice weston Performing Location [facility] - [address] [facility] [address]
--- OUTSIDE RECORDS SUMMARY | 2023-12-15 09:10 | External Medical Summary | Summary of Care ---
Author Name Unknown Organization [facility] Address [address] [place] [facility] [place] [address] Phone [phone] Care Team Providers Care Commercial Field Inspector Name Role Phone Jeferson Oneil PA-C Primary Care Provider + Encounter Details Date Type Department Care Team (Late st Contact Info) Description 11/12/2023 Orders Only Laboratory [facility] [phone] Julio Mitchell, DO [address] [id number] DM coma, type 2 (HCC)*; Insulin long-term use (HCC); Dyslipidemia, goal to [...] TABLET PER MONTH Active Vitamin D, Ergocalciferol, 85231 UNITS Capsule 1 CAP EVERY OTHER WEEK [...] long-term use (HCC) 11/12/2023 9:39 AM EDT Scheduled Orders Name Type Priority Associated Diagnoses Orde r Schedule CBC WITH WBC DIFFERENTIAL Lab Routine DM coma, type 2 (HCC) Insulin long-term use (HCC) Dyslipidemia, goal to be determined HTN, goal to be determined Expected: 11/12/2023, Expires: 11/11/2024 LIPID PANEL WITHOUT DIRECT LDL Lab Routine DM coma, type 2 (HCC) Insulin long-term use (HCC) Dyslipidemia, goal to be determined Expected: 11/12/2023, Expires: 11/11/2024 COMPREHENSIVE METABOLIC PANEL Lab STAT DM coma, type 2 (HCC) Insulin long-term use (HCC) Dyslipidemia, goal to be determined HTN, goal to be determined Expected: 11/12/2023, Expires: 11/11/2024 HEMOGLOBIN A1C Lab Routine DM coma, type 2 (HCC) Insulin long-term use (HCC) Expected: 11/12/2023, Expires: 11/11/2024 Health Maintenance Due Date Last Done Comments [...] 06/28/2021, Additional history exists COVID-19 Vaccine ( - season) 2022 Influenza Vaccine (FLU shot) (#1) [...] Visit Diagnoses Diagnosis DM coma, type 2 (HCC)- Primary Type II or unspecified type diabetes mellitus with other coma, not stated as uncontrolled Insulin long-term use (HCC) Encounter for long-term (current) use of insulin Dyslipidemia, goal to be determined Other and unspecified hyperlipidemia HTN, goal to be determined Unspecified essential hypertension documented in this encounter Care Teams Commercial Field Inspector Relationship Specialty Start Date End Date Jeferson Oneil PA-C [address] [address] [place] [address] PCP - General Physician Circular Saw Operator 11/12/23 documented as of this encounter
--- NOTE | 2023-12-15 09:28 | Hospitalist Progress Note ---
Date of Service December 15, 2023 Assessment & Plan (1) Sepsis: Plan: - Source: toe osteomyelitis/foot cellulitis - US arterial Doppler due to diabetes and need for amputations - showed proximal luminal narrowing of distal superficial femoral aa, popiteal aa, and dorsalis pedis aa - Pre-op testing including EKG and CXR, WNL - Vancomycin + Zosyn, broad spectrum due to diabetes - Leukocytosis improving - Follow up blood culture and recommend getting surgical cultures - Consult orthopedics and podiatry, Dr. Benton - diet resumed as plan for surgery later this week (2) T2DM (type 2 diabetes mellitus): Plan: - Hemoglobin A1C 11.1% - Reduced her usual lantus from 23 units BID to 10 units BID due to likely reduced carbohydrates in the hospital - Stopped SGLT-2 inhibitor, consider not going back on this given increased risk of amputations compared to alternative treatments - para educator consulted Novolog: --Goal BSG Range: Low 110 mg/dL, High 140 mg/dL --Correction Factor: 45 mg/dL/unit --Carbohydrate ratio = 15 g/unit --BSGs ACHS if eating, q6h if npo (3) Hypertension: Plan: - stable, mildly elevated likely secondary to infection and lisinopril hold - Continue metoprolol, hold lisinopril pre-operatively (4) Acute osteomyelitis of toe: Plan: - right 3rd distal toe - see sepsis workup above Plan Diabetic neuropathy - continue gabapentin VTE prophylaxis - Lovenox 40mg SQ daily Diet - T2DM Code status: FULL CODE Admission and Anticipated Discharge Date Admission Date: December 14, 2023 Supervising Physician Co-Signing Physician Notes Patient was seen and examined independently I discussed the case with Irma DHILLON I reviewed pertinent past medical social family history and also the plan of care and agree with the plan of care. I did visit the patient at the same time Dr. Coffey was in to evaluate the patient's right third toe osteomyelitis. The toe was significantly deformed there was some macerated tissue on the plantar aspect of the foot with some fluid below the plantar skin. Very consistent with significant infection. After discussion with Dr. Coffey plans for surgical amputation would be on December 16 Patient will have her n.p.o. status revoke to be in a diabetic diet with good control of her diabetes. With regard to her hypertension the patient remains on metoprolol Patient does not history of ischemic heart disease her preoperative risk is very low continue metoprolol the perioperative period holding lisinopril as appropriate Any exceptions will be noted below Subjective The patient stated that she was doing well. She had no acute events overnight. She stated that she has neuropathy and does not have great feeling in her feet, but still has some sensation. She does not have pain in her right foot currently. She stated that the wound started about a week ago. It has been bleeding through the bandages today. Patient denies headache, dizziness, lightheadedness, cough, dyspnea, chest pain, abdominal pain, nausea, vomiting, diarrhea, constipation, edema. Wound bandages were changed on exam. Review of Systems Review of Systems: See HPI Physical Exam Physical Exam: The patient is awake, alert and oriented 3, well developed and well nourished, normocephalic and atraumatic, in no acute distress. Non-toxic appearing. HEENT- EOMI, mucous membranes moist. Hearing grossly intact. Heart-normal S1 and S2. No murmurs, rubs or gallops. Lungs-clear bilaterally, no respiratory distress, no accessory muscle use. Abdomen-normal bowel sounds and soft. No ascites noted. Non-tender. Extremities- no clubbing, cyanosis, or edema. Right foot with wound on 3rd metatarsal, blood and clear drainage noted. Erythema, warmth, and swelling extending to ankle. Rheumatologic-normal range of motion. Psychiatric-normal affect. Results & Data Results & Data Vital Signs (Past 12 Hours) Vital Signs Temp Pulse Pulse Resp BP BP Pulse Ox 12/15/23 08:01 36.9 C 67 18 163/81 H 95 12/15/23 07:15 12/15/23 07:03 64 12/15/23 03:39 37.3 C 75 20 123/70 93 12/15/23 00:03 37.2 C 76 18 127/69 93 12/14/23 22:01 72 O2 Del Method 12/15/23 08:01 Room Air 12/15/23 07:15 Room Air 12/15/23 07:03 12/15/23 03:39 Room Air 12/15/23 00:03 Room Air 12/14/23 22:01 PG Care Time/CCT Total # of Minutes Spent Total Time Spent with Patient: Total time spent is greater than 50% in coordination of care (as documented) at patient's floor/unit and/or counseling patient: Coding Level of Care Code 03321 SUB INP/OBS CARE 2/35MIN Diagnoses Sepsis without acute organ dysfunction, due to unspecified organism A41.9 Sepsis acute organ dysfunction status: without acute organ dysfunction Sepsis type: sepsis due to unspecified organism Type 2 diabetes mellitus with foot ulcer, with long-term current use of insulin E11.621; L97.509; Z79.4 Diabetes mellitus complication detail: with foot ulcer Diabetes mellitus complication status: with skin complications Diabetes mellitus terminal supervisor insulin use: with terminal supervisor use Primary hypertension I10 Hypertension type: primary hypertension Acute osteomyelitis of toe of right foot M86.171 Laterality: right (1) Sepsis Sepsis acute organ dysfunction status: without acute organ dysfunction Sepsis type: sepsis due to unspecified organism Qualified Code(s): A41.9 - Sepsis, unspecified organism (2) T2DM (type 2 diabetes mellitus) Diabetes mellitus complication detail: with foot ulcer Diabetes mellitus complication status: with skin complications Diabetes mellitus terminal supervisor insulin use: with terminal supervisor use Qualified Code(s): E11.621 - Type 2 diabetes mellitus with foot ulcer; L97.509 - Non-pressure chronic ulcer of other part of unspecified foot with unspecified severity; Z79.4 - care home (current) use of insulin (3) Hypertension Hypertension type: primary hypertension Qualified Code(s): I10 - Essential (primary) hypertension (4) Acute osteomyelitis of toe Laterality: right Qualified Code(s): M86.171 - Other acute osteomyelitis, right ankle and foot
--- NOTE | 2023-12-15 09:47 | Pharmacy Report ---
Pharmacy PK ABX Note - Date of Service December 15, 2023 - Assessment and Plan Assessment 63 year old F referred to the ED by PCP for evaluation of right third toe osteo/foot cellulitis. Ordered empiric vancomycin and pip-tazo. h/o T2DM and Charcot foot. Pending Orthopedics and Podiatry consultation Pertinent microbiologic data includes: 12/14/23: BC - pending Plan Vancomycin * Loading dose: 1750 mg IV x 1 * Maintenance dose: 1000 mg IV on 12/14 AM, then increased to 1250 mg IV q12h * Regimen is predicted to achieve target AUC/YANETH of 400-600 mg/L.hr * predicted AUC/YANETH at steady state = 601 * Random level ordered for: 12/15 with am labs Pharmacy will continue to follow and will adjust dose/frequency as necessary. Thank you.
[2023-12-15] MEDS: 4.5GM X1 IV ONE (10:55)
[2023-12-15] MEDS ORDERED: VANCOMYCIN LEVEL ONE (14:00)
[2023-12-15] MEDS: PIPERACILLIN/TAZOBACTAM 4.5 GM/100 ML BAG IV SCH (14:56)
--- NOTE | 2023-12-15 17:13 | Billing Data ---
Date of Service December 15, 2023 Coding Level of Care Code 91537 SUB INP/OBS CARE
[2023-12-15] MEDS: VANCOMYCIN HCL 1,250 MG in SODIUM CHLORIDE 0.9% 250 ML IV SCH (17:51)
[2023-12-15] MEDS: ACETAMINOPHEN 325 MG TAB PO PRN (20:30)
--- NOTE | 2023-12-15 21:52 | Electrocardiogram Report ---
Test Reason : Blood Pressure : */* mmHG Vent. Rate : 91 BPM Atrial Rate : 91 BPM P-R Int : 188 ms QRS Dur : 78 ms QT Int : 354 ms P-R-T Axes : 41 -28 53 degrees QTcB Int : 435 ms Normal sinus rhythm Septal infarct , age undetermined Possible Inferior infarct Abnormal ECG No previous ECGs available Confirmed by Julio César Dickens ([id number]) on 12/15/2023 9:51:51 PM Referred By: Jeferson Oneil Confirmed By: Julio César Dickens
--- NOTE | 2023-12-15 23:52 | Podiatry Consultation ---
Date of Consultation December 15, 2023 Assessment & Plan (1) Acute osteomyelitis of toe: Laterality: right Qualified Code(s): M86.171 - Other acute osteomyelitis, right ankle and foot (2) Sepsis: Sepsis acute organ dysfunction status: without acute organ dysfunction Sepsis type: sepsis due to unspecified organism Qualified Code(s): A41.9 - Sepsis, unspecified organism (3) T2DM (type 2 diabetes mellitus): Diabetes mellitus complication detail: with foot ulcer Diabetes mellitus complication status: with skin complications Diabetes mellitus senior living insulin use: with senior living use Qualified Code(s): E11.621 - Type 2 diabetes mellitus with foot ulcer; L97.509 - Non-pressure chronic ulcer of other part of unspecified foot with unspecified severity; Z79.4 - medical terminologist (current) use of insulin Plan patient was examined and evaluated. We discussed at length the etiology and treatment of her right third toe infection. Given the radiographic and clinical findings, should benefit most from a toe amputation. She should build heal this well with only mild peripheral arterial disease noted on arterial Doppler. If she has difficulty healing this, she may require follow-up with vascular surgery anyway. For now, she can avoid this. We will plan on doing a total toe and rotation as well as a second toe callus debridement, with concerns that there could be a wound underlying the dorsal callus to the second PIPJ. If this ulcerates, it could be in a similar situation to this third toe. We will obtain consent prior to surgery. We will plan on making her nothing by mouth after midnight with planning surgery at some point . Patient understands as amenable to this. Until then, she will continue with antibiotics empirically. History of Present Illness Reason for Consultation: Right third toe osteomyelitis Attending Physician: Tucker Ray MD History of Present Illness patient presented to the hospital with worsening infection and changes to the right third toe overall. She states that she has had a callus here for an indefinite amount of time but has not noticed any changes to it overall. Now, she has noticed increasing drainage and pain more reccently. She states that this is still only been about the last week but was not telling her family about it as well. Now, she has been feeling sicker and was unable to avoid further treatment so presented to the hospital. She is feeling better now on IV antibiotics since her hospitalization began. She has been attempting conservative wound care as well but imaging has revealed underlying infection. Allergies Allergy/AdvReac Type Severity Reaction Status Date / Time No Known Allergies Allergy Verified 12/14/23 16:24 Home Medications Medication Instructions Recorded Confirmed Type empagliflozin 25 mg tablet 25 mg PO QAM 12/14/23 12/14/23 History (Jardiance) ergocalciferol (vitamin D2) 1,250 50,000 unit PO Q14D 12/14/23 12/14/23 History mcg (50,000 unit) capsule gabapentin 600 mg tablet 600 mg PO BID 12/14/23 12/14/23 History insulin glargine 100 unit/mL (3 23 unit subcut BID 12/14/23 12/14/23 History mL) subcutaneous pen (Lantus Solostar U-100 Insulin) lisinopril 30 mg tablet 30 mg PO QAM 12/14/23 12/14/23 History metoprolol succinate 50 mg 50 mg PO HS 12/14/23 12/14/23 History tablet,extended release 24 hr risedronate 150 mg tablet 150 mg PO MONTHLY 12/14/23 12/14/23 History tramadol 50 mg tablet 50 mg PO Q6H PRN Pain 12/14/23 12/14/23 History vit A 7,160 unit-vit C 113 mg-vit 1 tab PO QAM 12/14/23 12/14/23 History E 100 [id number] tablet Patient History Medical History Osteoporosis Hypertension Neuropathy T2DM (type 2 diabetes mellitus) Social History Smoking Status: Never smoker Hx Alcohol Use: No Hx Substance Use: No Preferred Language: Albanian Communication Ability: Effective Life Claims Examiner Required: No Beliefs That Will Affect Care: None Current Living Situation: Spouse Current Living Situation Comment: with Other Information That Helps Us Care for You: No Feels Safe at Home: Yes Safety Concerns: Feels Safe At This Time Assistive Devices: None Review of Systems Review of Systems: All systems reviewed & are unremarkable except as noted in HPI & below Constitutional: no fever, no chills and no fatigue Eyes: no problem reported Ear, Nose, Mouth, Throat: no problem reported Respiratory: no problem reported Cardiovascular: + edema; no problem reported Gastrointestinal: no nausea, no vomiting and no problem reported Genitourinary: no problem reported Musculoskeletal: no problem reported Integumentary: + skin ulcer, + wounds and + erythema Neurologic: + loss of sensation, + numbness and + pa resthesia; no generalized weakness Psychiatric: no problem reported Physical Exam Physical Exam: lower extremmity focused exam: DP/PT pulses 1/4 bilaterally. Edema is noted to the bilateral lower extremity, worse on the right. Local erythema and purulent drainage are noted to the right third toe. ulceration noted to the distal aspect of the toe probes to the distal phalanx, consistent with the underlying radiographic findings. Purulence is noted to this ulceration, consistent with osteomyelitis and rufino local infection. Ascending cellulitis is confined to the forefoot with no streaking more proximally. the proximal extent has been demarcated and the infection has not extended past this so far. The lesser digits are all contracted and semirigid hammertoe deformities with dystrophic nails noted to 1 through 5 bilaterally. Skin is otherwise cool and atrophic consistent with long-standing arterial concerns. Constitutional: WD/WN, vitals as above + ill appearing and + obese Eyes: PERRL, conjunctivae normal, anicteric sclerae ENMT: external ear and nose normal, oropharynx normal Mouth: + poor dentition Neck: trachea midline, no thyromegaly normal visual inspection Respiratory: normal respiratory effort; no respiratory distress Cardiovascular: Rate/Rhythm: regular rate and regular rhythm Vessels: posterior tibial pulses present and dorsalis pedis pulses present Extremities: normal capillary refill (diminished to the affected right third toe.) and + edema Chest (Breasts): Chest: normal inspection of chest Gastrointestinal (Abdomen): Inspection/Auscultation: abdomen normal to inspection Percussion/Palpation: + abdomen tender and abdomen soft Musculoskeletal: no cyanosis or clubbing, extremities motor strength 5/5 Head/Neck/Chest: normocephalic and head atraumatic Extremities: extremities normal to inspection Skin: + ulcer, + induration, + wound, + skin a trophy and + erythema Neurologic: awake; no focal motor deficits Psychiatric: A+Ox3, euthymic affect Results & Data Vital Signs (Past 12 Hours) Vital Signs Temp Pulse Pulse Resp BP BP Pulse Ox 12/15/23 22:50 37.0 C 66 18 150/77 H 94 12/15/23 19:34 37.9 C H 74 18 159/75 H 93 12/15/23 15:58 37.7 C H 74 18 163/64 H 95 12/15/23 14:31 74 O2 Del Method 12/15/23 22:50 Room Air 12/15/23 19:34 Room Air 12/15/23 15:58 Room Air 12/15/23 14:31
[2023-12-16] MEDS: VANCOMYCIN LEVEL ONE (06:41)
[2023-12-16 07:19] LABS: Creatinine Clr Calc Pharmacy 82.1 ml/min; Est GFR (African American) 107.6 ml/min; Est GFR (Non-African American) 92.9 ml/min
--- NOTE | 2023-12-16 08:04 | Hospitalist Progress Note ---
Date of Service December 16, 2023 Assessment & Plan (1) Sepsis: Plan: - Source: toe osteomyelitis/foot cellulitis - US arterial Doppler due to diabetes and need for amputations - showed proximal luminal narrowing of distal superficial femoral aa, popiteal aa, and dorsalis pedis aa - Leukocytosis improving - Follow up blood culture and recommend getting surgical cultures - prelim blood cultures showed aerobic gram positive cocci clusters - Continue with Vancomycin + Zosyn - pharmacy following with Vancomycin dosing/frequency - Consult podiatry, Dr. Benton - NPO after midnight as planned for amputation surgery 12/17/23 - consider follow up with vascular surgery if difficulty healing post operatively (2) T2DM (type 2 diabetes mellitus): Plan: - Hemoglobin A1C 11.1% - Reduced her usual lantus from 23 units BID to 10 units BID due to likely reduced carbohydrates in the hospital - Stopped SGLT-2 inhibitor, consider not going back on this given increased risk of amputations compared to alternative treatments - general manager farm consulted Novolog: --Goal BSG Range: Low 110 mg/dL, High 140 mg/dL --Correction Factor: 45 mg/dL/unit --Carbohydrate ratio = 15 g/unit --BSGs ACHS if eating, q6h if npo (3) Hypertension: Plan: - stable, mildly elevated likely secondary to infection and lisinopril hold - Continue metoprolol and lisinopril given 12/15 - hold lisinopril 12/16 pre-operatively (4) Acute osteomyelitis of toe: Plan: - right 3rd distal toe - amputation planned for 12/17/23 - see sepsis workup above Plan Diabetic neuropathy - continue gabapentin VTE prophylaxis - Lovenox 40mg SQ daily Diet - T2DM; NPO after midnight Code status: FULL CODE Admission and Anticipated Discharge Date Admission Date: December 14, 2023 Supervising Physician Co-Signing Physician Notes Patient was seen and examined independently I discussed the case with Irma DHILLON I reviewed pertinent past medical social family history and also the plan of care and agree with the plan of care. I did visit the patient all the nurses were changing his dressing on the right foot and was able to reevaluate her right third toe osteomyelitis. The toe remains significantly deformed there continues to be macerated tissue on the plantar aspect of the foot with some fluid below the plantar skin. Very remains consistent with significant infection. Dr. Coffey plans for surgical amputation would be on December 16 Patient will have her n.p.o. status after midnight with good attention to her diabetic care With regard to her hypertension the patient remains on metoprolol with fair control Patient does not history of ischemic heart disease her preoperative risk is very low continue metoprolol the perioperative period holding lisinopril as appropriate Any exceptions will be noted below Subjective The patient stated that she was doing well. She had no acute events overnight. She has no pain regarding her left foot wound. She did have pain this morning in her right foot that was relieved with gabapentin. She did have a few episodes of diarrhea last night and this morning that have since resolved, likely due to antibiotic use. The patient was concerned that her glucose was elevated, she stated that her Lantus insulin was not given. Nursing made aware and given to patient. Patient denies headache, dizziness, lightheadedness, cough, dyspnea, chest pain, abdominal pain, nausea, vomiting, constipation, edema. Review of Systems Review of Systems: See HPI Physical Exam Physical Exam: The patient is awake, alert and oriented 3, well developed and well nourished, normocephalic and atraumatic, in no acute distress. Non-toxic appearing. HEENT- EOMI, mucous membranes moist. Hearing grossly intact. Heart-normal S1 and S2. No murmurs, rubs or gallops. Lungs-clear bilaterally, no respiratory distress, no accessory muscle use. Abdomen-normal bowel sounds and soft. No ascites noted. Non-tender. Extremities- no clubbing, cyanosis, or edema. Right foot with wound on 3rd metatarsal. Erythema, warmth, and swelling extending to ankle. Rheumatologic-normal range of motion. Psychiatric-normal affect. Results & Data Results & Data Vital Signs (Past 12 Hours) Vital Signs Temp Pulse Pulse Resp BP Pulse Ox O2 Del Method 12/16/23 07:49 61 12/16/23 07:33 36.6 C 63 20 161/82 H 97 Room Air 12/16/23 02:44 36.7 C 61 18 181/81 H 95 Room Air 12/16/23 00:28 81 12/15/23 22:50 37.0 C 66 18 150/77 H 94 Room Air PG Care Time/CCT Total # of Minutes Spent Total Time Spent with Patient: Total time spent is greater than 50% in coordination of care (as documented) at patient's floor/unit and/or counseling patient: Coding Level of Care Code None Diagnoses Sepsis without acute organ dysfunction, due to unspecified organism A41.9 Sepsis acute organ dysfunction status: without acute organ dysfunction Sepsis type: sepsis due to unspecified organism Type 2 diabetes mellitus with foot ulcer, with long-term current use of insulin E11.621; L97.509; Z79.4 Diabetes mellitus complication detail: with foot ulcer Diabetes mellitus complication status: with skin complications Diabetes mellitus senior care insulin use: with senior care use Primary hypertension I10 Hypertension type: primary hypertension Acute osteomyelitis of toe of right foot M86.171 Laterality: right (1) Sepsis Sepsis acute organ dysfunction status: without acute organ dysfunction Sepsis type: sepsis due to unspecified organism Qualified Code(s): A41.9 - Sepsis, unspecified organism (2) T2DM (type 2 diabetes mellitus) Diabetes mellitus complication detail: with foot ulcer Diabetes mellitus complication status: with skin complications Diabetes mellitus termite technician insulin use: with termite technician use Qualified Code(s): E11.621 - Type 2 diabetes mellitus with foot ulcer; L97.509 - Non-pressure chronic ulcer of other part of unspecified foot with unspecified severity; Z79.4 - regional intermodal truck driver (current) use of insulin (3) Hypertension Hypertension type: primary hypertension Qualified Code(s): I10 - Essential (primary) hypertension (4) Acute osteomyelitis of toe Laterality: right Qualified Code(s): M86.171 - Other acute osteomyelitis, right ankle and foot
[2023-12-16] MEDS: lisinopril 10 MG TAB PO STA (08:54)
--- NOTE | 2023-12-16 09:31 | Pharmacy Report ---
Pharmacy PK ABX Note - Date of Service December 16, 2023 - Assessment and Plan Assessment 12/16/23: Blood cultures show no growth to date. Today is day 3 of Vancomycin therapy for toe osteomyelitis. Plan for toe amputation tomorrow. Vancomycin trough level obtained today after two maintenance doses = 10.1 mcg/ml at 06:27. This level is not at steady state. 12/15/23: 63 year old F referred to the ED by PCP for evaluation of right third toe osteo/foot cellulitis. Ordered empiric vancomycin and pip-tazo. h/o T2DM and Charcot foot. Pending Orthopedics and Podiatry consultation Pertinent microbiologic data includes: 12/14/23: BC - pending Plan Vancomycin * Current regimen: 1250 mg IV every 12 hours * Trough level obtained 12/16/23 resulted as 10.1 mcg/mL. This is predicted to achieve target AUC/YANETH of 400-600 mg/L.hr * Predicted AUC at steady state: 578 mg/L.hr * Continue Vancomycin 1250 mg IV every 12 hours * Will repeat level in the next 48-72 hours if therapy is continued and/or change in patient clinical status Pharmacy will continue to follow and will adjust dose/frequency as necessary. Thank you.
[2023-12-16 10:34] LABS: A calco-baum cmplx NotReported Not Detected (NotDetected); Bact fragilis Not Reported Not Detected (NotDetected); Blood Culture Id Panel PCR Panel Negative (NotDetected); C auris Not Reported Not Detected (NotDetected); Calbicans Not Reported Not Detected (NotDetected); Candida glabrata Not Reported Not Detected (NotDetected); Candida krusei Not Reported Not Detected (NotDetected); Cneoformans/gatti Not Reported Not Detected (NotDetected); Cparapsilosis Not Reported Not Detected (NotDetected); E cloacae compx Not Reported Not Detected (NotDetected); Efaecalis Not Reported Not Detected (NotDetected); Efaecium Not Reported Not Detected (NotDetected); Enterobacterales Not Reported Not Detected (NotDetected); Escherichia coli Not Reported Not Detected (NotDetected); H influenzae Not Reported Not Detected (NotDetected); K aerogenes Not Reported Not Detected (NotDetected); Koxytoca Not Reported Not Detected (NotDetected); Kpneumoniae grp Not Reported Not Detected (NotDetected); Lmonocyt Not Reported Not Detected (NotDetected); N meningitidis Not Reported Not Detected (NotDetected); P aeruginosa Not Reported Not Detected (NotDetected); Proteus spp Not Reported Not Detected (NotDetected); Salmonella spp Not Reported Not Detected (NotDetected); Staph lugdunensis Not Reported Not Detected (NotDetected); Staph spp. Not Reported Not Detected (NotDetected); Staphaureus Not Reported Not Detected (NotDetected); Staphepi Not Reported Not Detected (NotDetected); Stenmaltophilia Not Reported Not Detected (NotDetected); Strep agal(GrpB) Not Reported Not Detected (NotDetected); Strep pneum Not Reported Not Detected (NotDetected); Strep pyog (GrpA) Not Reported Not Detected (NotDetected); Strep spp Not Reported Not Detected (NotDetected)
[2023-12-16] MEDS: LANTUS PER UNIT CHARGE SQ ONE (11:40)
--- NOTE | 2023-12-16 17:34 | Billing Data ---
Date of Service December 16, 2023 Coding Level of Care Code 29033 SUB INP/OBS CARE MIN
--- NOTE | 2023-12-16 22:56 | Podiatry Progress Note ---
Date of Service December 16, 2023 Assessment & Plan (1) Acute osteomyelitis of toe: (2) Sepsis: (3) T2DM (type 2 diabetes mellitus): Plan patient was examined and evaluated. - Scheduled for amputation of right third toe tomorrow afternoon. - NPO after 2AM or so; midnight preferred, but afternoon surgery is earliest I could schedule - Will plan on second toe callus/wound debridement as well. - Can likely d/c home by Thursday, assuming clean margins obtained surgically. - Patient understands and is amenable to this. Admission and Anticipated Discharge Date Admission Date: December 14, 2023 Subjective Pt seen at bedside. No new concerns. Feeling good with IV antibiotics and local wound care. Still amenable to amputation tomorrow. Concerned about new skin change to left plantar foot, too. Review of Systems Constitutional: no fever, no chills and no fatigue Eyes: no problem reported Ear, Nose, Mouth, Throat: no problem reported Respiratory: no problem reported Cardiovascular: + edema; no problem reported Gastrointestinal: no nausea, no vomiting and no problem reported Genitourinary: no problem reported Musculoskeletal: no problem reported Integumentary: + skin ulcer, + wounds and + erythema Neurologic: + loss of sensation, + numbness and + pa resthesia; no generalized weakness Psychiatric: no problem reported Physical Exam Physical Exam: lower extremmity focused exam: DP/PT pulses 1/4 bilaterally. Edema is noted to the bilateral lower extremity, worse on the right. Local erythema and purulent drainage are noted to the right third toe. ulceration noted to the distal aspect of the toe probes to the distal phalanx, consistent with the underlying radiogra phic findings. Purulence is noted to this ulceration, consistent with osteomyelitis and rufino local infection. Ascending cellulitis is confined to the forefoot with no streaking more proximally. the proximal extent has been demarcated and the infection has not extended past this so far. The lesser digits are all contracted and semirigid hammertoe deformities with dystrophic nails noted to 1 through 5 bilaterally. Skin is otherwise cool and atrophic consistent with long-standing arterial concerns. Superficial abrasion noted sub 1st metatarsal head on the left. No underlying open wound or infection noted. Constitutional: WD/WN, vitals as above + ill appearing and + obese Eyes: PERRL, conjunctivae normal, anicteric sclerae ENMT: external ear and nose normal, oropharynx normal Mouth: + poor dentition Neck: trachea midline, no thyromegaly normal visual inspection Respiratory: normal respiratory effort; no respiratory distress Cardiovascular: Rate/Rhythm: regular rate and regular rhythm Vessels: posterior tibial pulses present and dorsalis pedis pulses present Extremities: normal capillary refill (diminished to the affected right third toe.) and + edema Chest (Breasts): Chest: normal inspection of chest Gastrointestinal (Abdomen): Inspection/Auscultation: abdomen normal to inspection Percussion/Palpation: + abdomen tender and abdomen soft Musculoskeletal: no cyanosis or clubbing, extremities motor strength 5/5 Head/Neck/Chest: normocephalic and head atraumatic Extremities: extremities normal to inspection Skin: + ulcer, + induration, + wound, + skin a trophy and + erythema Neurologic: awake; no focal motor deficits Psychiatric: A+Ox3, euthymic affect Results & Data Results & Data Vital Signs (Past 12 Hours) Vital Signs Temp Pulse Pulse Resp BP Pulse Ox O2 Del Method 12/16/23 19:51 36.9 C 79 20 152/75 H 97 Room Air 12/16/23 15:56 37.1 C 72 18 172/74 H 98 Room Air 12/16/23 15:27 70 12/16/23 11:27 36.9 C 69 18 181/81 H 97 Room Air (1) Acute osteomyelitis of toe Laterality: right Qualified Code(s): M86.171 - Other acute osteomyelitis, right ankle and foot (2) Sepsis Sepsis acute organ dysfunction status: without acute organ dysfunction Sepsis type: sepsis due to unspecified organism Qualified Code(s): A41.9 - Sepsis, unspecified organism (3) T2DM (type 2 diabetes mellitus) Diabetes mellitus long term care administrator insulin use: with long term care administrator use Diabetes mellitus complication status: with skin complications Diabetes mellitus complication detail: with foot ulcer Qualified Code(s): E11.621 - Type 2 diabetes mellitus with foot ulcer; L97.509 - Non-pressure chronic ulcer of other part of unspecified foot with unspecified severity; Z79.4 - prison (current) use of insulin
[2023-12-17] MEDS ORDERED: Nursing to Pharmacy Communication SCH ×2 (07:15→16:45)
[2023-12-17 07:39] LABS: Hematocrit (blood only) 33.6 % (37.0-47.0); Hemoglobin 10.6 g/dl (12.0-16.0); Mean Corpuscular Hemoglobin 27.5 pg (25.0-34.0); Mean Corpuscular Hgb Conc 31.5 g/dL (32.0-36.0); Mean Corpuscular Volume 87.3 fL (80.0-100.0); Mean Platelet Volume 10.6 fL (9.4-12.4); Platelet Count 352 K/uL (130-400); RDW Coefficient of Variation 12.4 % (11.5-14.5); RDW Standard Deviation 39.6 fL (36.4-46.3); Red Blood Count 3.85 M/uL (4.20-5.40); White Blood Count 10.24 K/ul (4.8-10.8)
[2023-12-17] MEDS: INSULIN ASPART PER UNIT CHARGE SC SCH ×2 (08:37→18:17)
--- NOTE | 2023-12-17 08:51 | Hospitalist Progress Note ---
Date of Service December 17, 2023 Assessment & Plan (1) Sepsis: Plan: - Source: toe osteomyelitis/foot cellulitis - US arterial Doppler showed proximal luminal narrowing of distal superficial femoral aa, popiteal aa, and dorsalis pedis aa - Leukocytosis resolved - Follow up blood culture and recommend getting surgical cultures - prelim blood cultures showed aerobic gram positive cocci clusters - Continue with Vancomycin + Zosyn - pharmacy following with Vancomycin dosing/frequency - Consult podiatry, Dr. 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 consulted Novolog: --Goal BSG Range: Low 110 mg/dL, High 140 mg/dL --Correction Factor: 45 mg/dL/unit --Carbohydrate ratio = 15 g/unit --BSGs ACHS if eating, q6h if npo (3) Hypertension: Plan: - stable, mildly elevated likely secondary to infection and lisinopril hold - Continue metoprolol and lisinopril post-op - hold lisinopril 12/16 pre-operatively (4) Acute osteomyelitis of toe: Plan: - right 3rd distal toe - amputation planned for 12/17/23 - see sepsis workup above Plan Diabetic neuropathy - continue gabapentin VTE prophylaxis - Lovenox 40mg SQ daily Diet - T2DM; NPO due to surgery 12/17/23 Code status: FULL CODE Likely to d/c home 12/18/23 if clear margins obtained surgically. Admission and Anticipated Discharge Date Admission Date: December 14, 2023 Subjective Patient doing well overnight, no acute events overnight. She is to have a right 3rd toe amputation this afternoon. She stated that she bleed through her wound dressings this morning and nursing had just changed them prior to examination. She has no had an episode of diarrhea since yesterday morning. She does not have pain in her right foot. Patient denies headache, dizziness, lightheadedness, dyspnea, chest pain, abdominal pain, nausea, vomiting, diarrhea, constipation, edema, numbness, tingling. Review of Systems Review of Systems: See HPI Physical Exam Physical Exam: The patient is awake, alert and oriented 3, well developed and well nourished, normocephalic and atraumatic, in no acute distress. Non-toxic appearing. HEENT- EOMI, mucous membranes moist. Hearing grossly intact. Heart-normal S1 and S2. No murmurs, rubs or gallops. Lungs-clear bilaterally, no respiratory distress, no accessory muscle use. Abdomen-normal bowel sounds and soft. No ascites noted. Non-tender. Extremities- no clubbing, cyanosis, or edema. Right foot with wound on 3rd me tatarsal. Erythema, warmth, and swelling extending to ankle. Sensorineural exam intact of right foot. Rheumatologic-normal range of motion. Psychiatric-normal affect. Results & Data Results & Data Vital Signs (Past 12 Hours) Vital Signs Temp Pulse Pulse Resp BP BP Pulse Ox 12/17/23 08:03 36.9 C 66 16 168/82 H 95 12/17/23 07:14 61 12/17/23 02:00 37.2 C 65 16 146/74 H 95 12/16/23 23:59 36.8 C 72 20 127/71 93 12/16/23 22:56 71 O2 Del Method 12/17/23 08:03 Room Air 12/17/23 07:14 12/17/23 02:00 Room Air 12/16/23 23:59 Room Air 12/16/23 22:56 PG Care Time/CCT Total # of Minutes Spent Total Time Spent with Patient: Total time spent is greater than 50% in coordination of care (as documented) at patient's floor/unit and/or counseling patient: Coding Level of Care Code None Diagnoses Sepsis without acute organ dysfunction, due to unspecified organism A41.9 Sepsis acute organ dysfunction status: without acute organ dysfunction Sepsis type: sepsis due to unspecified organism Type 2 diabetes mellitus with foot ulcer, with long-term current use of insulin E11.621; L97.509; Z79.4 Diabetes mellitus complication detail: with foot ulcer Diabetes mellitus complication status: with skin complications Diabetes mellitus custodial insulin use: with custodial use Primary hypertension I10 Hypertension type: primary hypertension Acute osteomyelitis of toe of right foot M86.171 Laterality: right (1) Sepsis Sepsis acute organ dysfunction status: without acute organ dysfunction Sepsis type: sepsis due to unspecified organism Qualified Code(s): A41.9 - Sepsis, unspecified organism (2) T2DM (type 2 diabetes mellitus) Diabetes mellitus complication detail: with foot ulcer Diabetes mellitus complication status: with skin complications Diabetes mellitus custodial insulin use: with intermission coordinator use Qualified Code(s): E11.621 - Type 2 diabetes mellitus with foot ulcer; L97.509 - Non-pressure chronic ulcer of other part of unspecified foot with unspecified severity; 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
[2023-12-17 10:05] LABS: Creatinine Clr Calc Pharmacy 79.9 ml/min; Est GFR (Non-African American) 89.8 ml/min
--- NOTE | 2023-12-17 13:33 | Anesthesiology Consultation ---
Date of Service December 17, 2023 Assessment & Plan Chart Review Chart Review: Acceptable Risk for Surgery and Patient NOT seen in Pre Admission Testing Consults Requested none History Surgery Operation Date: 12/17/23 14:00 Proposed Procedures p Right Third Toe Amputation - Sonido Coffey DPM Height/Weight Height: 5 ft 1 in Weight: 84.4 kg Allergies Allergy/AdvReac Type Severity Reaction Status Date / Time No Known Allergies Allergy Verified 12/14/23 16:24 Medications Home Medications Medication Instructions Recorded Confirmed Last Taken empagliflozin 25 mg tablet 25 mg PO QAM 12/14/23 12/14/23 12/14/23 (Jardiance) ergocalciferol (vitamin D2) 1,250 50,000 unit PO Q14D 12/14/23 12/14/23 12/09/23 mcg (50,000 unit) capsule gabapentin 600 mg tablet 600 mg PO BID 12/14/23 12/14/23 12/14/23 insulin glargine 100 unit/mL (3 23 unit subcut BID 12/14/23 12/14/23 12/14/23 mL) subcutaneous pen (Lantus Solostar U-100 Insulin) lisinopril 30 mg tablet 30 mg PO QAM 12/14/23 12/14/23 12/14/23 metoprolol succinate 50 mg 50 mg PO HS 12/14/23 12/14/23 12/13/23 tablet,extended release 24 hr risedronate 150 mg tablet 150 mg PO MONTHLY 12/14/23 12/14/23 11/25/23 tramadol 50 mg tablet 50 mg PO Q6H PRN Pain 12/14/23 12/14/23 Unknown vit A 7,160 unit-vit C 113 mg-vit 1 tab PO QAM 12/14/23 12/14/23 12/14/23 E 100 [id number] tablet Active Medications Generic Name Dose Route Start Last Admin Trade Name Freq PRN Reason Stop Dose Admin Acetaminophen 650 mg 12/14/23 22:37 12/15/23 20:30 Acetaminophen 325 Mg Tab PO 01/13/24 22:36 650 mg Q4H PRN Administration Pain of Fever Dextrose 25 - 50 ml 12/14/23 19:15 12/15/23 06:19 Dextrose 50% 50 Ml Syringe IV 01/13/24 19:14 50 ml UD PRN Administration Hypoglycemia Protocol Protocol Enoxaparin Sodium 40 mg 12/14/23 21:00 12/16/23 20:45 Enoxaparin Inj 40 Mg/0.4 Ml Syr SQ 01/13/24 20:59 40 mg QPM JUSTA Administration Gabapentin 600 mg 12/14/23 21:00 12/17/23 08:37 Gabapentin 600 Mg Tab PO 01/13/24 20:59 600 mg BID JUSTA Administration Piperacillin Sod/Tazobactam Sod 4.5 gm in 100 mls @ 25 mls/hr 12/15/23 16:00 12/17/23 08:38 Zosyn IV 01/26/24 15:59 25 mls/hr Q8H JUSTA Administration Vancomycin HCl 1,250 mg/ 275 mls @ 200 mls/hr 12/15/23 18:00 12/17/23 07:00 Sodium Chloride IV 01/26/24 06:59 Infused Q12H JUSTA Infusion Insulin Aspart 0 units 12/17/23 07:15 12/17/23 12:24 Insulin Aspart Per Unit Charge SC 01/14/24 16:29 Not Given Q6 JUSTA Insulin Glargine 10 units 12/14/23 21:00 12/17/23 08:37 Lantus Per Unit Charge SC 01/13/24 20:59 10 units BID JUSTA Administration Metoprolol Succinate 50 mg 12/14/23 21:00 12/16/23 20:46 Metoprolol Succ 50mg Ext Rel Tab PO 01/13/24 20:59 50 mg HS JUSTA Administration Past Medical History Medical History Osteoporosis Hypertension Neuropathy T2DM (type 2 diabetes mellitus) Social History Smoking Status: Never smoker Hx Alcohol Use: No Hx Substance Use: No substance use type: does not use Review of Systems Constitutional: no fever, no chills and no fatigue Eyes: no problem reported Ear, Nose, Mouth, Throat: no problem reported Respiratory: no problem reported Cardiovascular: + edema; no problem reported Gastrointestinal: no nausea, no vomiting and no problem reported Genitourinary (Female): no problem reported Musculoskeletal: no problem reported Integumentary: + skin ulcer, + wounds and + erythema Neurologic: + loss of sensation, + numbness and + paresthesia; no generalized weakness Psychiatric: no problem reported Physical Exam Vital Signs Last Vital Signs Temp 37.0 C 12/17/23 11:55 Pulse 61 12/17/23 11:55 Resp 18 12/17/23 11:55 BP 196/77 H 12/17/23 11:55 Pulse Ox 95 12/17/23 11:55 O2 Del Method Room Air 12/17/23 11:55 Constitutional WD/WN, vitals as above + ill appearing and + obese Eyes PERRL, conjunctivae normal, anicteric sclerae + anicteric sclerae; normal pupil size ENMT external ear and nose normal, oropharynx normal Mouth: + poor dentition; oral mucous membranes not dry Neck trachea midline, no thyromegaly normal visual inspection Respiratory normal respiratory effort, lungs clear to auscultation normal respiratory effort; no respiratory distress Cardiovascular RRR, no murmur, no edema Rate/Rhythm: regular rate and regular rhythm Vessels: posterior tibial pulses present and dorsalis pedis pulses present Extremities: normal capillary refill (diminished to the affected right third toe.) and + edema Chest (Breasts) Chest: normal inspection of chest Gastrointestinal (Abdomen) normal bowel sounds, soft, nontender, no hepatosplenomegaly Inspection/Auscultation: abdomen normal to inspection Percussion/Palpation: + abdomen tender and abdomen soft Musculoskeletal no cyanosis or clubbing, extremities motor strength 5/5 Head/Neck/Chest: normocephalic and head atraumatic Extremities: extremities normal to inspection Skin + ulcer, + induration, + wound, + skin atrophy and + erythema Neurologic moves all extremities and awake; no focal motor deficits and not confused Motor/Sensory: + sensory deficit (reduced sensation distal to ankles b/l) Psychiatric A+Ox3, euthymic affect Testing Laboratory Results 12/17/23 06:58 12/17/23 06:58 Hemoglobin A1c 11.1 % (4.5-5.6) H 12/15/23 07:34 Blood Type O Positive 12/16/23 18:48 Antibody Screen NEGATIVE 12/16/23 18:48 12/14/23 17:13 Aerobic Blood Culture - Preliminary Blood Micrococcus species Anaerobic Blood Culture - Preliminary No growth in Anaerobic bottle after 48 hours. 12/14/23 17:13 Aerobic Blood Culture - Preliminary Blood No growth in Aerobic bottle after 48 hours. Anaerobic Blood Culture - Preliminary No growth in Anaerobic bottle after 48 hours. 12/17/23 12/17/23 12:06 08:16 POC Glucose 131 H 227 H
[2023-12-17] MEDS: LACTATED RINGER'S 1,000 ML IV SCH (13:58)
[2023-12-17] MEDS ORDERED: LIDOCAINE 2% 20 MG/ML 5 ML SYR IV ONE (14:05)
[2023-12-17] MEDS ORDERED: PROPOFOL IV EMULSION 10 MG/ML 20 ML VIAL IV ONE (14:05)
[2023-12-17] MEDS ORDERED: fentaNYL citrate PF 100 MCG/2 ML VIAL ONE (14:06)
[2023-12-17] MEDS ORDERED: MIDAZOLAM HCL 1 MG/ML 2ML VIAL ONE (14:06)
--- NOTE | 2023-12-17 14:08 | History & Physical Bridge Note ---
Date of Service December 17, 2023 History & Physical Bridge Note I have examined the patient, reviewed the History & Physical and in the interval since the performance of the History & Physical I have noted the following changes of clinical significance: no changes noted. Plan for right 3rd toe amputation and second toe ulcer/callus debridement. Consent obtained for these procedures. All questions answered.
[2023-12-17] MEDS ORDERED: ePHEDrine sulfate 50 MG/ML AMP IV PRN (14:14)
[2023-12-17] MEDS ORDERED: ATROPINE SULFATE 0.1 MG/ML 10ML SYR IV PRN (14:14)
[2023-12-17] MEDS ORDERED: fentaNYL citrate PF 100 MCG/2 ML VIAL IV PRN (14:14)
[2023-12-17] MEDS ORDERED: ONDANSETRON INJ 2 MG/ML 2 ML VIAL IV PRN (14:14)
[2023-12-17] MEDS: BUPIVACAINE 0.5 % 5 MG/1 ML MPF 30ML VIAL ONE (14:50)
--- NOTE | 2023-12-17 15:02 | Post Operative Brief Note ---
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
--- NOTE | 2023-12-17 15:25 | Anesthesiology Progress Note ---
Date of Service December 17, 2023 Anesthesia Post Procedure Vital Signs Vital Signs: Temp Pulse Pulse Pulse Resp BP BP 12/17/23 15:15 65 18 164/79 H 12/17/23 15:05 36 C L 68 16 152/74 H 12/17/23 14:12 81 12/17/23 13:50 68 20 196/85 H 12/17/23 13:45 37.4 C 72 20 206/89 H 12/17/23 11:55 37.0 C 61 18 196/77 H 12/17/23 08:30 12/17/23 08:03 36.9 C 66 16 168/82 H 12/17/23 07:14 61 12/17/23 02:00 37.2 C 65 16 146/74 H 12/16/23 23:59 36.8 C 72 20 127/71 12/16/23 22:56 71 12/16/23 19:51 36.9 C 79 20 152/75 H 12/16/23 15:56 37.1 C 72 18 172/74 H 12/16/23 15:27 70 Pulse Ox O2 Del Method O2 Flow Rate 12/17/23 15:15 99 Room Air 12/17/23 15:05 99 Nasal Cannula 2 12/17/23 14:12 12/17/23 13:50 95 Room Air 12/17/23 13:45 96 Room Air 12/17/23 11:55 95 Room Air 12/17/23 08:30 Room Air 12/17/23 08:03 95 Room Air 12/17/23 07:14 12/17/23 02:00 95 Room Air 12/16/23 23:59 93 Room Air 12/16/23 22:56 12/16/23 19:51 97 Room Air 12/16/23 15:56 98 Room Air 12/16/23 15:27 Transfer of Care Handoff Completed per policy Notes Mental Status: alert / awake / arousable Patient Amnestic to Procedure: Yes Nausea / Vomiting: adequately controlled Pain: adequately controlled Airway Patency, RR, SpO2: stable & adequate BP & HR: stable & adequate Hydration State: stable & adequate Anesthetic Complications: no major complications apparent and Pt Satisfied with anesthetic care
--- NOTE | 2023-12-17 17:07 | Billing Data ---
Date of Service December 17, 2023 Coding Level of Care Code 99221 SUB INP/OBS CARE
[2023-12-17] MEDS: lisinopril 10 MG TAB PO SCH (17:17)
[2023-12-18 08:37] LABS: Hematocrit (blood only) 33.5 % (37.0-47.0); Hemoglobin 10.9 g/dl (12.0-16.0); Mean Corpuscular Hemoglobin 27.9 pg (25.0-34.0); Mean Corpuscular Hgb Conc 32.5 g/dL (32.0-36.0); Mean Corpuscular Volume 85.9 fL (80.0-100.0); Mean Platelet Volume 11.3 fL (9.4-12.4); Platelet Count 371 K/uL (130-400); RDW Coefficient of Variation 12.2 % (11.5-14.5); RDW Standard Deviation 38.3 fL (36.4-46.3); White Blood Count 13.21 K/ul (4.8-10.8)
--- NOTE | 2023-12-18 09:07 | Hospitalist Progress Note ---
Date of Service December 18, 2023 Assessment & Plan (1) Sepsis: Plan: - Source: toe osteomyelitis and foot cellulitis - s/p right 3rd toe amputation with podiatry, Dr. Benton 12/17/23 - febrile post-operatively, since resolved - Leukocytosis resolved - blood cultures showed micrococcus species, likely contaminate - As per podiatry - clean bone margins with amputation but possible plantar tendon involvement - Continue with IV Vancomycin + Zosyn as patient still has foot cellulitis - pharmacy following with Vancomycin dosing/frequency - ID consulted - awaiting operative note; OR cultures from infected portion of toe vs clean margin - if no residual bone infection and no recurrence of fevers, 3 weeks PO abx depending on culture results - if cultures are no growth - therapy with doxycycline + Augmentin (2) PAD (peripheral artery disease): Plan: - Arterial Doppler suspicious for PAD; proximal luminal narrowing of distal superficial femoral aa, popiteal aa, and dorsalis pedis aa - patient is well perfused with strong LE pulses and consistently bleeding through wound bandages - vascular consult placed 12/18/23; Dr. Fermin - lipid panel with AM labs 12/18 - started patient on baby aspirin and atorvastatin 12/17 (3) T2DM (type 2 diabetes mellitus): Plan: - Hemoglobin A1C 11.1% - Reduced her usual lantus from 23 units BID to 10 units BID due to likely reduced carbohydrates in the hospital - Stopped SGLT-2 inhibitor, consider not going back on this given increased risk of amputations compared to alternative treatments - ems educator consulted Novolog: - Goal BSG Range: Low 110 mg/dL, High 140 mg/dL - Correction Factor: 45 mg/dL/unit - Carbohydrate ratio = 15 g/unit - BSGs ACHS if eating, q6h if npo (4) Hypertension: Plan: - stable, mildly elevated likely secondary to infection, IV fluids, and lisinopril hold pre-operatively - Continue metoprolol and lisinopril (5) Cellulitis: Plan: - right foot cellulitis - see sepsis workup above - will wait for surgical cultures prior to d/c (6) Acute osteomyelitis of toe: Plan: - right 3rd distal toe amputation 12/17/23 - see sepsis workup above - PT/OT recommending discharge home when medically stable with surgical shoe Plan Diabetic neuropathy - continue gabapentin VTE prophylaxis - Lovenox 40mg SQ daily Diet - T2DM Code status: FULL CODE Will wait for surgical cultures prior to discharge. Admission and Anticipated Discharge Date Admission Date: December 14, 2023 Supervising Physician Co-Signing Physician Notes Attending Attestation & Progress Note: Pt seen/examined, chart reviewed, care plan d/w PROSPER Lira. I agree w/ the mathew components of her documentation. Patient with mild pain of right foot amputation site otherwise feeling well. Eating well. Anxious to go home. Vitals - low-grade fevers noted Exam - gen - NAD, resting comfortably in bed mouth - MMM neck - no JVD heart - RRR, s1 s2, no murmur lungs - CTA b/l abd - soft NT ND BS+ ext - right foot wrapped in large TOR dressing, cap refill of exposed toes brisk, pulses right foot 2+; left foot 2+ pulses psych - a/o x 3 intra-op wound cx from right foot - pending A/P: 1. R 3rd toe distal osteomyelitis s/p amputation of 3rd toe - Dr Coffey, POD #1 2. R foot cellulitis 3. ?R foot septic tenosynovitis? 4. sepsis 2nd to #1, #2, possible #3 5. PAD 6. T2DM appreciate Dr Coffey's consultation appreciate Dr Fermin' consultation - no intervention needed for RLE PAD - but will start asa + statin appreciate ID consultation await intra-op culture from the right foot in meantime cont IV zosyn/vanco pain control Vlad Tejada MD Subjective Patient doing well post-operatively with no acute events overnight. She was hoping to be discharged home today, but awaiting surgical cultures, vascular consult, and ID consult. She denies right foot pain. She tolerated PT and OT well this morning. Patient denies headache, fever, chills, dizziness, lightheadedness, dyspnea, chest pain, abdominal pain, nausea, vomiting, edema. She is agreeable to start baby aspirin and a statin for newly diagnoses PAD. Review of Systems Review of Systems: See HPI Physical Exam Physical Exam: The patient is awake, alert and oriented 3, well developed and well nourished, normocephalic and atraumatic, in no acute distress. Non-toxic appearing. HEENT- EOMI, mucous membranes moist. Hearing grossly intact. Heart-normal S1 and S2. No murmurs, rubs or gallops. Lungs-clear bilaterally, no respiratory distress, no accessory muscle use. Abdomen-normal bowel sounds and soft. No ascites noted. Non-tender. Extremities- no clubbing, cyanosis, or edema. Sensorineural exam intact of right foot, strong peripheral pulses. Surgical dressing secured with tor bandage and surgical shoe. Rheumatologic-normal range of motion. Psychiatric-normal affect. Results & Data Results & Data Vital Signs (Past 12 Hours) Vital Signs Temp Pulse Pulse Resp BP BP Pulse Ox 12/18/23 07:41 66 12/18/23 04:04 37.6 C H 66 16 152/74 H 93 12/17/23 23:50 37.3 C 69 16 157/75 H 91 12/17/23 23:18 37.5 C 75 16 159/73 H 91 12/17/23 22:20 69 O2 Del Method 12/18/23 07:41 12/18/23 04:04 Room Air 12/17/23 23:50 Room Air 12/17/23 23:18 Room Air 12/17/23 22:20 PG Care Time/CCT Total # of Minutes Spent Total Time Spent with Patient: Total time spent is greater than 50% in coordination of care (as documented) at patient's floor/unit and/or counseling patient: Coding Level of Care Code None Diagnoses Sepsis without acute organ dysfunction, due to unspecified organism A41.9 Sepsis acute organ dysfunction status: without acute organ dysfunction Sepsis type: sepsis due to unspecified organism PAD (peripheral artery disease) I73.9 Type 2 diabetes mellitus with foot ulcer, with long-term current use of insulin E11.621; L97.509; Z79.4 Diabetes mellitus complication detail: with foot ulcer Diabetes mellitus complication status: with skin complications Diabetes mellitus senior care insulin use: with senior care use Primary hypertension I10 Hypertension type: primary hypertension Cellulitis of right lower extremity L03.115 Laterality: right Site of cellulitis: extremity Site of cellulitis of extremity: lower extremity Acute osteomyelitis of toe of right foot M86.171 Laterality: right (1) Sepsis Sepsis acute organ dysfunction status: without acute organ dysfunction Sepsis type: sepsis due to unspecified organism Qualified Code(s): A41.9 - Sepsis, unspecified organism (3) T2DM (type 2 diabetes mellitus) Diabetes mellitus complication detail: with foot ulcer Diabetes mellitus complication status: with skin complications 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 school teacher insulin use: with senior care use Qualified Code(s): E11.621 - Type 2 diabetes mellitus with foot ulcer; L97.509 - Non-pressure chronic ulcer of other part of unspecified foot with unspecified severity; Z79.4 - long term care phlebotomist (current) use of insulin (4) Hypertension Hypertension type: primary hypertension Qualified Code(s): I10 - Essential (primary) hypertension (5) Cellulitis Laterality: right Site of cellulitis: extremity Site of cellulitis of extremity: lower extremity Qualified Code(s): L03.115 - Cellulitis of right lower limb (6) Acute osteomyelitis of toe Laterality: right Qualified Code(s): M86.171 - Other acute osteomyelitis, right ankle and foot
[2023-12-18 09:46] LABS: Calcium 8.5 mg/dl (8.6-10.3); Creatinine Clr Calc Pharmacy 95.6 ml/min; Est GFR (African American) 112.6 ml/min; Est GFR (Non-African American) 97.2 ml/min; Potassium 3.6 mmol/L (3.5-5.1)
--- NOTE | 2023-12-18 11:55 | Infectious Disease Consult ---
Date of Consultation December 18, 2023 Assessment & Plan (1) Acute osteomyelitis of toe: (2) Cellulitis: (3) PAD (peripheral artery disease): Plan 63yo F with h/o T2DM, neuropathy, charcot foot s/p surgery on the left foot, HTN who presented on 12/13 with c/f right third toe infection. On admission, she was afebrile, hypertensive but otherwise stable. Initial labs with WBC 16.77, Cr 0.80. AST/ALT wnl. ESR 78, CRP 17.82. PCT 0.19. HbA1c 11.1. Right toe XR with acute OM of third distal phalanx. Right LE arterial doppler with proximal luminal narrowing, otherwise patent arteries in RLE. CXR negative. QTC 435. She was started on empiric vancomycin and zosyn. S/p OR 12/16 and underwent right third toe amputation (per primary team, she had clean margins, there was concern for plantar tendon involvement). Right third toe path and cx were sent and are in process. ID consulted for assistance on 12/17. Patient had one temp yesterday evening after her surgery and no recurrence. She appears quite well today and without complaints. If she has recurrence of fevers, would send blood cultures and if develops urinary symptoms, UA/UCx. Otherwise, continue on empiric coverage while waiting for cultures from OR. Full op note is not in system, but if the toe amputation was further down from the distal phalanx, then likely clear margins (as was already noted by podiatry). Unclear if the toe path/cx are from infected amputated toe or from clean margins. If its from the infected portion, then positive path/cx is to be expected. If it's from clean margin, and they return positive, then treatment for OM would be necessary. I suspect specimen in lab is of the infected/amputated portion of the toe. If all infected bone is removed, then plan will be for 3 weeks of PO abx given tendon involvement. Note, micrococcus noted in BCx from admission, likely contaminant. # Fever # Right third toe distal phalanx OM s/p amputation on 12/16 (clean margins per primary, c/f tendon involvement) # RLE cellulitis (per chart, confined to forefoot w/o proximal streaking) # Micrococcus in BCX likely contaminant # Mild PAD # h/o T2DM - monitor for fevers if recurrence or continuing to have rising WBC, then would repeat BCX - f/u OR cx - f/u full operative note - if there are c/f residual bone infection, or if OR path/cx are from clean margin and return positive, then treatment will be for a longer course for osteomyelitis (3-6wks) final regimen pending cx results, though can use PO if susceptible - if no residual bone infection and no recurrence of fevers, then she can complete a course of 3 weeks total with PO abx depending on culture results ---if cx are no growth, then can complete therapy with doxycycline + augmentin ID will continue to follow. If questions or concerns, contact Infectious Disease Call Center . Briseida Hoover MD [facility], Division of Infectious Diseases [facility]: [phone] Consultation Information Consultation was provided via telemedicine using two-way real-time interactive telecommunication between the patient and the telemedicine provider. For the duration of the visit, the provider was performing the assessment from a different facility than the patient. This includesuse of bluetooth stethoscope forauscultationperformed by the telepresenter that the telemedicine provider can hear if described in the physical exam. Mandrel Press Hand contact information: Please call [facility] Call Center . (Phone Number For Physician Use Only) After establishing a telemedicine visit, patient was: Patient was verified with two unique identifiers, Patient/authorized rep acknowledged consent and understanding and Gave permission to continue telehealth session Time Spent with Patient: Initial => 75 min History of Present Illness Reason for Consultation: R 3rd toe osteo s/p amput., right foot cellulitis Attending Physician: Vlad Tejada MD History of Present Illness 63yo F with h/o T2DM, neuropathy, charcot foot s/p surgery on the left foot, HTN who presented on 12/13 with c/f right third toe infection. She had a callus there for a long time, but in the past week, noticed increased drainage and pain. She had noticed the tip of the third toe became discolored and black, then progressively more swollen and erythematous over the week. She saw her PCP who sent her to the ED. On admission, she was afebrile, hypertensive but otherwise stable. Initial labs with WBC 16.77, Cr 0.80. AST/ALT wnl. ESR 78, CRP 17.82. PCT 0.19. HbA1c 11.1. Right toe XR with acute OM of third distal phalanx. Right LE arterial doppler with proximal luminal narrowing, otherwise patent arteries in RLE. CXR negative. QTC 435. She was started on empiric vancomycin and zosyn. S/p OR 12/16 and underwent right third toe amputation (per primary team, she had clean margins, there was concern for plantar tendon involvement). Right third toe path and cx were sent and are in process. ID consulted for assistance on 12/17. On evaluation, patient reports feeling well. She denies having any chest pain, SOB, cough, abdominal pain, vomiting, diarrhea. She says her redness on was only on the foot and not going up her leg. She denies any pain. Allergies Allergy/AdvReac Type Severity Reaction Status Date / Time No Known Allergies Allergy Verified 12/14/23 16:24 Home Medications Medication Instructions Recorded Confirmed Type empagliflozin 25 mg tablet 25 mg PO QAM 12/14/23 12/14/23 History (Jardiance) ergocalciferol (vitamin D2) 1,250 50,000 unit PO Q14D 12/14/23 12/14/23 History mcg (50,000 unit) capsule gabapentin 600 mg tablet 600 mg PO BID 12/14/23 12/14/23 History insulin glargine 100 unit/mL (3 23 unit subcut BID 12/14/23 12/14/23 History mL) subcutaneous pen (Lantus Solostar U-100 Insulin) lisinopril 30 mg tablet 30 mg PO QAM 12/14/23 12/14/23 History metoprolol succinate 50 mg 50 mg PO HS 12/14/23 12/14/23 History tablet,extended release 24 hr risedronate 150 mg tablet 150 mg PO MONTHLY 12/14/23 12/14/23 History tramadol 50 mg tablet 50 mg PO Q6H PRN Pain 12/14/23 12/14/23 History vit A 7,160 unit-vit C 113 mg-vit 1 tab PO QAM 12/14/23 12/14/23 History E 100 [id number] tablet Patient History Medical History Osteoporosis Hypertension Neuropathy T2DM (type 2 diabetes mellitus) Social History Smoking Status: Never smoker Hx Alcohol Use: No Hx Substance Use: No Preferred Language: Azeri Communication Ability: Effective Denture Contour Wire Specialist Required: No Beliefs That Will Affect Care: None Current Living Situation: Spouse Current Living Situation Comment: with Other Information That Helps Us Care for You: No Feels Safe at Home: Yes Safety Concerns: Feels Safe At This Time Assistive Devices: None Review of System 10-point review of systems reviewed and are negative except for as above. Physical Exam Physical Exam: General: Awake, alert, no acute distress HEENT: NC/AT, EOMI, mmm Neck: supple Lungs: respirations non-labored Heart: nl peripheral perfusion Abdomen: soft, NT/ND Ext: right leg with postop dressing, no erythema on leg Neuro: moving all extremities Results & Data Vital Signs (Past 12 Hours) Vital Signs Temp Pulse Pulse Resp BP BP Pulse Ox 12/18/23 11:18 36.8 C 71 20 159/79 H 96 12/18/23 07:41 66 12/18/23 04:04 37.6 C H 66 16 152/74 H 93 O2 Del Method 12/18/23 11:18 Room Air 12/18/23 07:41 12/18/23 04:04 Room Air Laboratory Results Labs reviewed. Diagnostic Findings Imaging reviewed. (1) Acute osteomyelitis of toe Laterality: right Qualified Code(s): M86.171 - Other acute osteomyelitis, right ankle and foot (2) Cellulitis Laterality: right Site of cellulitis: extremity Site of cellulitis of extremity: lower extremity Qualified Code(s): L03.115 - Cellulitis of right lower limb
[2023-12-18] MEDS: ASPIRIN 81 MG ECTAB PO SCH (12:43)
[2023-12-18] MEDS: ATORVASTATIN 10 MG TAB PO SCH (12:43)
--- NOTE | 2023-12-18 13:02 | Operative Report ---
Post Operative Report Pre & Post Diagnosis Operation Date: 12/17/23 14:00 Pre-Op Diagnosis: Acute osteomyelitis of toe; Sepsis Post-Op Diagnosis: Acute osteomyelitis of toe; Sepsis I identified the patient and participated in the time-out.: Yes Procedure Operation Date: 12/17/23 14:00 Actual Procedures p Right Third Toe Amputation(Right) - Sonido Coffey DPM Surgeon Sonido Coffey DPM Drilling Engineer None Estimated Blood Loss 10 Findings Consistent with Post-Op Diagnosis The distal phalanx was noted immediately on palpation of the toe; the phalanx was immediately removable through the ulceration with extensive purulence surrounding it. There was proximal infection including the middle phalanx so a more proximal amputation was performed at the metatarsophalangeal joint. at the surgical site, there was proximal extension of purulent drainage along the long flexors and extensors. This was able be flushed with copious nonsterile saline and no visible purulence was left behind. There was further fluctuance underlying the fourth interspace though no purulent drainage was able to be expressed from here. This was likely relative hyperemia consistent with the level of inflammation. All bone involvement was able to be excised without incident. the wound was packed with form gauze to remove the removed in the future and the incision was closed primarily with nylon loosely, to allow for continuous drainage if required. Specimens right third toe sent to pathology with member service representative bone specimens sent to bone culture. Anesthesia Type MAC Complications none Disposition Accompanied Patient To Recovery: Yes Disposition: Recovery Room Indications this patient is a recent hospital consult of ours who presented to the hospital for worsening right third toe pain. She has admitted to an ulceration to the tip of the third toe but believes it was only there for a week or so. Over that week, she states that it got drastically worse with drainage, swelling, pus, and increasing pain. She presented to the emergency department who obtained a reading graft which revealed bone infection to the third toe. We saw her yesterday and discussed relative risks, outcomes, possible interventions, conservatively and surgically, and she has elected for a more definitive toe amputation at this point. All questions were answered and consent was obtained. Description of Procedure the patient was brought to the operating room and left the inpatient bed for the duration of the procedure. The right foot was scrubbed, prepped, and draped in the usual aseptic manner. A well-padded pneumatic ankle tourniquet was applied to the patient's right ankle. The limb was elevated, exsanguinated, and the tourniquet was inflated to 250 mmHg. Local anesthesia was obtained utilizing 20 cc of half percent Marcaine and a forefoot block. attention was directed to the right third toe where a tennis racquet shaped incision was made extending along the proximal phalanx circumferentially around the proximal phalanx. The incision was carried down to the level of the bone utilizing sharp dissection techniques. The distal phalanx was immediately visible at the distal ulceration and was removed with a rongeur to be sent for culture testing. The toe was then further dissected from the foot via disarticulation at the level of the metatarsal phalangeal joint. Purulent drainage was noted throughout the surgical site which was able to be flushed with copious nonsterile saline. The toe was ulcerated medially and laterally in the interdigital spaces, likely leading to this increased skin and soft tissue infection. A curette was utilized to debride the tracking along the long extensor and long flexor tendons, with the most proximal extension measuring 8 cm proximal to the surgical site. At the completion of surgery, no further purulent drainage was able to be expressed. Attention was then directed laterally, plantarly, to the fourth interspace where palpable fluctuance was noted. An 18-gauge needle was utilized to attempt aspiration of this fluid, none of which was able to be expressed. With continued palpable fluctuance a small incision was made with the 15 blade and bleeding was noted consistent with relative hyperemia. Only a very small amount of purulent drainage was able to be expressed, likely indirect medication with the third toe ulcer. This was flushed with copious amount of sterile saline as well. All incisions were flushed copious amount of saline again. The incisions were sutured utilizing 3-0 nylon in simple interrupted fashion with iodoform packing gauze placed in this third toe surgical site. The foot was dressed with Xeroform gauze, 4 x 4 gauze, Kerlix, and an Shilo wrap. An ABD was added to bolster the surgical dressing as well. The tourniquet was deflated and immediate hyperemia was noted to the digits. The patient to the procedure well and was transferred to the recovery room with vital signs stable and vascular status intact to the feet. Following postoperative monitoring, the patient be transferred back to the floor for further follow-up. I attest to the content of the Intraoperative Record and any orders documented therein. Any exceptions are noted below.
--- NOTE | 2023-12-18 14:26 | Pharmacy Report ---
Pharmacy PK ABX Note - Date of Service December 18, 2023 - Assessment and Plan Assessment 12/16: Today is Day # 5 vanco + cefepime for diabetic foot / osteo of 3rd distal toe. Patient is now s/p amputation of right 3rd distal toe. Surgical culture is showing pin-point growth - still incubating. Micrococcus grew in 1 BLCX - felt to be contaminant. ID is now consulted. Duration of abx therapy to be determined. Vanco level drawn today = 16.8 @1151. Renal fxn stable. Regimen is still predicted to achieve therapeutic target AUC/YANETH ratio. 12/15: Blood cultures show no growth to date. Today is day 3 of Vancomycin therapy for toe osteomyelitis. Plan for toe amputation tomorrow. Vancomycin trough level obtained today after two maintenance doses = 10.1 mcg/ml at 06:27. This level is not at steady state. 12/14: 63 year old F referred to the ED by PCP for evaluation of right third toe osteo/foot cellulitis. Ordered empiric vancomycin and pip-tazo. h/o T2DM and Charcot foot. Pending Orthopedics and Podiatry consultation Pertinent microbiologic data includes: 12/14/23: BC - pending Plan Vancomycin * Continue current regimen: 1250 mg IV every 12 hours * Regimen is predicted to achieve AUC/YANETH ratio of 400-600 * Will repeat level in the next 48-72 hours if therapy is continued and/or change in patient clinical status Pharmacy will continue to follow and will adjust dose/frequency as necessary. Thank you.
--- NOTE | 2023-12-18 17:24 | Vascular Medicine Consultation ---
Date of Consultation December 18, 2023 Assessment & Plan (1) PAD (peripheral artery disease): 2. Type 2 diabetes with peripheral neuropathy 3. 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 She has moderate SFA/popliteal disease which should not impact wound healing and is not consistent with critical limb ischemia. Does have severe disease in her DPA but would not expect to impact current surgical wound. Will confirm adequate distal toe perfusion with toe pressure/TBI as an outpatient. Feel unlikely she will need any additional vascular intervention at this time. Discussed with the patient importance of ASCVD risk factor modification going forward. Recommend starting statin and daily aspirin. Will arrange outpatient follow-up/toe pressures. From a vascular standpoint okay for discharge. History of Present Illness Attending Physician: Vlad Tejada MD History of Present Illness Ms. Hay is a very pleasant 63-year-old woman with a history of type 2 diabetes complicated by peripheral neuropathy seen today in the setting of PAD and right third toe diabetic foot ulcer/osteomyelitis. Other medical issues include hypertension. Lifelong non-smoker. Reports ulcer developing on third toe approximately 1 week prior to admission. Progressive discoloration and was seen by PCP on 12/13 at which time the toe was black and referred to ED in setting of cellulitis/sepsis. Started on broad- spectrum antibiotics. Underwent third toe amputation with Dr. Coffey on 12/16. Cultures no growth to date. Underwent right lower extremity arterial duplexhad moderate SFA, popliteal disease (PSV 253, 282 respectively). Multiphasic waveforms and tibials with three-vessel runoff. Severe stenosis in dorsalis pedis (PSV 666). Social history: Non-smoker. Works at [employer], has been there for most 27 years. Allergies Allergy/AdvReac Type Severity Reaction Status Date / Time No Known Allergies Allergy Verified 12/14/23 16:24 Home Medications Medication Instructions Recorded Confirmed Type empagliflozin 25 mg tablet 25 mg PO QAM 12/14/23 12/14/23 History (Jardiance) ergocalciferol (vitamin D2) 1,250 50,000 unit PO Q14D 12/14/23 12/14/23 History mcg (50,000 unit) capsule gabapentin 600 mg tablet 600 mg PO BID 12/14/23 12/14/23 History insulin glargine 100 unit/mL (3 23 unit subcut BID 12/14/23 12/14/23 History mL) subcutaneous pen (Lantus Solostar U-100 Insulin) lisinopril 30 mg tablet 30 mg PO QAM 12/14/23 12/14/23 History metoprolol succinate 50 mg 50 mg PO HS 12/14/23 12/14/23 History tablet,extended release 24 hr risedronate 150 mg tablet 150 mg PO MONTHLY 12/14/23 12/14/23 History tramadol 50 mg tablet 50 mg PO Q6H PRN Pain 12/14/23 12/14/23 History vit A 7,160 unit-vit C 113 mg-vit 1 tab PO QAM 12/14/23 12/14/23 History E 100 [id number] tablet Patient History Medical History Osteoporosis Hypertension Neuropathy T2DM (type 2 diabetes mellitus) Social History Smoking Status: Never smoker Hx Alcohol Use: No Hx Substance Use: No Preferred Language: Mongolian Communication Ability: Effective Station Cook Required: No Beliefs That Will Affect Care: None Current Living Situation: Spouse Current Living Situation Comment: with Other Information That Helps Us Care for You: No Feels Safe at Home: Yes Safety Concerns: Feels Safe At This Time Assistive Devices: None Review of Systems Review of Systems: All systems reviewed & are unremarkable except as noted in HPI & below Physical Exam Physical Exam: General: Comfortable HEENT: Sclerae anicteric Lungs: Clear to auscultation bilaterally Cardiac: Regular rate and rhythm, no murmurs. Vascular: 2+ radial bilaterally. 1+ popliteal on right. 2+ DP pulse, dim inished PT pulse. 1+ lower extremity edema extending to mid ankle. Dressing in place over third toe amputation site. Abdomen: Soft, nontender Psych: Alert orient x3, normal affect and mood Results & Data Vital Signs (Past 12 Hours) Vital Signs Temp Pulse Pulse Resp BP Pulse Ox O2 Del Method 12/18/23 16:15 75 12/18/23 16:14 98.6 F 76 18 100/67 93 Room Air 12/18/23 11:18 98.2 F 71 20 159/79 H 96 Room Air 12/18/23 07:41 66 PG Care Time/CCT Total # of Minutes Spent Total Time Spent with Patient: Total time spent is greater than 50% in coordination of care (as documented) at patient's floor/unit and/or counseling patient: Coding Level of Care Code 55278 IN/OBS CONSULT LVL 4,60M Diagnoses PAD (peripheral artery disease) I73.9
[2023-12-19 08:51] LABS: Hematocrit (blood only) 32.8 % (37.0-47.0); Hemoglobin 10.3 g/dl (12.0-16.0); Mean Corpuscular Hemoglobin 27.8 pg (25.0-34.0); Mean Corpuscular Hgb Conc 31.4 g/dL (32.0-36.0); Mean Corpuscular Volume 88.4 fL (80.0-100.0); Mean Platelet Volume 10.9 fL (9.4-12.4); Platelet Count 356 K/uL (130-400); RDW Coefficient of Variation 12.1 % (11.5-14.5); RDW Standard Deviation 39.1 fL (36.4-46.3); Red Blood Count 3.71 M/uL (4.20-5.40); White Blood Count 9.03 K/ul (4.8-10.8)
--- NOTE | 2023-12-19 12:24 | Hospitalist Progress Note ---
Date of Service December 19, 2023 Assessment & Plan (1) Sepsis: Plan: - Source: toe osteomyelitis and foot cellulitis - s/p right 3rd toe amputation with podiatry, Dr. Benton 12/17/23 - febrile post-operatively, since resolved - Leukocytosis resolved - blood cultures showed micrococcus species, likely contaminant - surgical cultures pending - As per podiatry - clean bone margins with amputation but possible plantar tendon involvement, surgical culture from infected toe - ID consulted - if no residual bone infection and no recurrence of fevers, 3 weeks PO abx depending on culture results - if cultures are no growth - therapy with doxycycline + Augmentin - Continue with IV Vancomycin + Zosyn - pharmacy following with Vancomycin dosing/frequency -Follow CBC, BMP, Vanco level in the morning (2) PAD (peripheral artery disease): Plan: - Arterial Doppler suspicious for PAD; proximal luminal narrowing of distal superficial femoral aa, popiteal aa, and dorsalis pedis aa - vascular consulted - follow up with toe pressure/ TBI outpatient - lipid panel showed low HDL, otherwise WNL - started patient on baby aspirin and atorvastatin (3) T2DM (type 2 diabetes mellitus): Plan: - Hemoglobin A1C 11.1% - Reduced her usual lantus from 23 units BID to 10 units BID on admission - with consistently elevated BG levels, increased lantus to 18 units BID 12/18 - Stopped SGLT-2 inhibitor on admission, consider not going back on this given increased risk of amputations compared to alternative treatments - maltster consulted Novolog: - Goal BSG Range: Low 110 mg/dL, High 140 mg/dL - Correction Factor: changed from 45 to 30 mg/dL/unit - Carbohydrate ratio = changed from 15 to 10 g/unit after discussion with pharmacy - BSGs ACHS if eating, q6h if npo (4) Hypertension: Plan: - stable, mildly elevated likely secondary to infection, IV fluids, and lisinopril hold pre-operatively - Continue metoprolol and lisinopril (5) Cellulitis: Plan: - right foot cellulitis - see sepsis workup above - will wait for surgical cultures prior to d/c (6) Acute osteomyelitis of toe: Plan: - right 3rd distal toe amputation 12/17/23 - see sepsis workup above - PT/OT recommending discharge home when medically stable with surgical shoe (7) Anemia: Plan: - Hgb 13.4 -> 10.3 since admission - possibly hemodilution component, or acute blood loss during surgery - can consider iron studies, b12, folate, and TSH check out patient with PCP follow up Plan Diabetic neuropathy - continue gabapentin VTE prophylaxis - Lovenox 40mg SQ daily Diet - T2DM Code status: FULL CODE Dispo: Downgrade from telemetry Will wait for surgical cultures prior to discharge. Admission and Anticipated Discharge Date Admission Date: December 14, 2023 Supervising Physician Co-Signing Physician Notes PA Supervision Note: I did not personally see or examine the patient today, but I verified all mathew points of PROSPER Lira's assessment and plan with the following exceptions/additions: None Subjective Patient stated that she is doing well today, no acute events overnight. She is having bilateral foot pain, that she stated occurs when her glucose runs high. She shared that her glucose has been high for the past few days and she has not been getting the same dose of Lantus during hospitalization that she has at home. She stated that she is compliant with Lantus at home but does not often use NovoLog, although she spoke with maltster and will use more in the future. She has been OOB and has not had a bowel movement since surgery 12/17/23. Patient denies fever, chills, dizziness, lightheadedness, dyspnea, chest pain, abdominal pain, nausea, vomiting, diarrhea, constipation, edema, numbness, tingling. Discussed with patient the importance of waiting for surgical cultures prior to discharge to be sent home on the correct antibiotic coverage. She is agreeable to stay. Tele overnight: SR with 1st degree block, HR 50's-70's Tele today: SR with 1st degree block, HR 50's-70's Review of Systems Review of Systems: See HPI Physical Exam Physical Exam: The patient is awake, alert and oriented 3, well developed and well nourished, normocephalic and atraumatic, in no acute distress. Non-toxic appearing. HEENT- EOMI, mucous membranes moist. Hearing grossly intact. Heart-normal S1 and S2. No murmurs, rubs or gallops. Lungs-clear bilaterally, no respiratory distress, no accessory muscle use. Abdomen-normal bowel sounds and soft. No ascites noted. Non-tender. Extremities- no clubbing, cyanosis, or edema. Sensorineural exam intact of right foot, strong peripheral pulses. Surgical dressing secured with ann bandage and surgical shoe. Rheumatologic-normal range of motion. Psychiatric-normal affect. Results & Data Results & Data Vital Signs (Past 12 Hours) Vital Signs Temp Pulse Pulse Resp BP Pulse Ox O2 Del Method 12/19/23 07:50 36.6 C 65 18 160/82 H 95 Room Air 12/19/23 07:19 58 L 12/19/23 02:36 37.2 C 69 16 163/78 H 93 Room Air Laboratory Results CBC, lipids reviewed PG Care Time/CCT Total # of Minutes Spent Total Time Spent with Patient: Total time spent is greater than 50% in coordination of care (as documented) at patient's floor/unit and/or counseling patient: Coding Level of Care Code None Diagnoses Sepsis without acute organ dysfunction, due to unspecified organism A41.9 Sepsis acute organ dysfunction status: without acute organ dysfunction Sepsis type: sepsis due to unspecified organism PAD (peripheral artery disease) I73.9 Type 2 diabetes mellitus with foot ulcer, with long-term current use of insulin E11.621; L97.509; Z79.4 Diabetes mellitus complication detail: with foot ulcer Diabetes mellitus complication status: with skin complications Diabetes mellitus implant polisher insulin use: with senior care use Primary hypertension I10 Hypertension type: primary hypertension Cellulitis of right lower extremity L03.115 Laterality: right Site of cellulitis: extremity Site of cellulitis of extremity: lower extremity Acute osteomyelitis of toe of right foot M86.171 Laterality: right Anemia D64.9 (1) Sepsis Sepsis acute organ dysfunction status: without acute organ dysfunction Sepsis type: sepsis due to unspecified organism Qualified Code(s): A41.9 - Sepsis, unspecified organism (3) T2DM (type 2 diabetes mellitus) Diabetes mellitus complication detail: with foot ulcer Diabetes mellitus complication status: with skin complications Diabetes mellitus senior care insulin use: with implant polisher use Qualified Code(s): E11.621 - Type 2 diabetes mellitus with foot ulcer; L97.509 - Non-pressure chronic ulcer of other part of unspecified foot with unspecified severity; Z79.4 - [facility] (current) use of insulin (4) Hypertension Hypertension type: primary hypertension Qualified Code(s): I10 - Essential (primary) hypertension (5) Cellulitis Laterality: right Site of cellulitis: extremity Site of cellulitis of extremity: lower extremity Qualified Code(s): L03.115 - Cellulitis of right lower limb (6) Acute osteomyelitis of toe Laterality: right Qualified Code(s): M86.171 - Other acute osteomyelitis, right ankle and foot
--- NOTE | 2023-12-19 13:59 | Podiatry Progress Note ---
Date of Service November Assessment & Plan (1) Acute osteomyelitis of toe: (2) Sepsis: (3) T2DM (type 2 diabetes mellitus): Plan patient was examined and evaluated. - Amputation revelaed worse infection than suspected initially; distal phalanx was clearly eroded through the distal toe and nail bed, easily palpable and not at all viable - All infected bone able to be excised with proximal amputation at the MTPJ. - More proximal tracking noted along the long extensors/flexors of the third toe, but flushed copiously. Should respond to oral antibiotics. - ID consult would be appreciated; d/c home when antibiotic plan established. Will f/u outpatient at 1 and 2 weeks, for suture removal. Admission and Anticipated Discharge Date Admission Date: December 14, 2023 Subjective Pt seen at bedside 1 day s/p Right third to amputation. Doing well. Has felt good since surgery. No new systemic signs/symptoms of infection. No pain to surgical site Review of Systems Constitutional: no fever, no chills and no fatigue Eyes: no problem reported Ear, Nose, Mouth, Throat: no problem reported Respiratory: no problem reported Cardiovascular: + edema; no problem reported Gastrointestinal: no nausea, no vomiting and no problem reported Genitourinary: no problem reported Musculoskeletal: no problem reported Integumentary: + skin ulcer, + wounds and + erythema Neurologic: + loss of sensation, + numbness and + pa resthesia; no generalized weakness Psychiatric: no problem reported Physical Exam Physical Exam: lower extremity focused exam: DP/PT pulses 1/4 bilaterally. Edema is noted to the bilateral lower extremity, worse on the right. Surgical site sutures intact. Packing removed with some bleeding appreciated to opening between sutures, as expected. No purulence. No necrotic/non-viable tissue developing. No purulence to stab incision of plantar 4th interspace. Erythema improving, edema still present. Constitutional: WD/WN, vitals as above + ill appearing and + obese Eyes: PERRL, conjunctivae normal, anicteric sclerae ENMT: external ear and nose normal, oropharynx normal Mouth: + poor dentition Neck: trachea midline, no thyromegaly normal visual inspection Respiratory: normal respiratory effort; no respiratory distress Cardiovascular: Rate/Rhythm: regular rate and regular rhythm Vessels: posterior tibial pulses present and dorsalis pedis pulses present Extr emities: normal capillary refill (diminished to the affected right third toe.) and + edema Chest (Breasts): Chest: normal inspection of chest Gastrointestinal (Abdomen): Inspection/Auscultation: abdomen normal to inspection Percussion/Palpation: + abdomen tender and abdomen soft Musculoskeletal: no cyanosis or clubbing, extremities motor strength 5/5 Head/Neck/Chest: normocephalic and head atraumatic Extremities: extremities normal to inspection and + amputation noted Skin: + skin atrophy and + erythema Neurologic: awake; no focal motor deficits Psychiatric: A+Ox3, euthymic affect Results & Data Results & Data Vital Signs (Past 12 Hours) Vital Signs Temp Pulse Pulse Resp BP BP Pulse Ox 12/19/23 12:21 36.9 C 69 18 153/83 H 95 12/19/23 07:50 36.6 C 65 18 160/82 H 95 12/19/23 07:19 58 L 12/19/23 02:36 37.2 C 69 16 163/78 H 93 O2 Del Method 12/19/23 12:21 Room Air 12/19/23 07:50 Room Air 12/19/23 07:19 12/19/23 02:36 Room Air (1) Acute osteomyelitis of toe Laterality: right Qualified Code(s): M86.171 - Other acute osteomyelitis, right ankle and foot (2) Sepsis Sepsis acute organ dysfunction status: without acute organ dysfunction Sepsis type: sepsis due to unspecified organism Qualified Code(s): A41.9 - Sepsis, unspecified organism (3) T2DM (type 2 diabetes mellitus) Diabetes mellitus termite control servicer insulin use: with nursing home use Diabetes mellitus complication status: with skin complications Diabetes mellitus complication detail: with foot ulcer Qualified Code(s): E11.621 - Type 2 diabetes mellitus with foot ulcer; L97.509 - Non-pressure chronic ulcer of other part of unspecified foot with unspecified severity; Z79.4 - intermodal truck driver (current) use of insulin
[2023-12-19] MEDS: LANTUS PER UNIT CHARGE SQ ONE (16:33)
--- NOTE | 2023-12-19 18:25 | Billing Data ---
Date of Service December 19, 2023 Coding Level of Care Code 65067 SUB INP/OBS CARE
--- NOTE | 2023-12-19 20:44 | Billing Data ---
Date of Service December 18, 2023 Coding Level of Care Code 27530 SUB INP/OBS CARE
[2023-12-19] MEDS: LANTUS PER UNIT CHARGE SC SCH (21:15)
[2023-12-20 05:45] LABS: Basophils # (auto) 0.07 K/uL (0.00-0.20); Basophils % (auto) 0.6 %; Eosinophils # (auto) 0.48 K/uL (0.00-0.50); Eosinophils % (auto) 4.1 %; Hematocrit (blood only) 31.2 % (37.0-47.0); Hemoglobin 9.9 g/dl (12.0-16.0); Immature Granulocytes # (auto) 0.15 K/uL (0.01-0.20); Immature Granulocytes % (auto) 1.3 %; Lymphocytes # (auto) 1.51 K/uL (1.20-3.40); Lymphocytes % (auto) 12.8 %; Mean Corpuscular Hemoglobin 27.7 pg (25.0-34.0); Mean Corpuscular Hgb Conc 31.7 g/dL (32.0-36.0); Mean Corpuscular Volume 87.4 fL (80.0-100.0); Mean Platelet Volume 10.6 fL (9.4-12.4); Monocytes # (auto) 1.01 K/uL (0.11-0.59); Monocytes % (auto) 8.6 %; Neutrophils # (auto) 8.55 K/uL (1.40-6.50); Neutrophils % (auto) 72.6 %; Platelet Count 330 K/uL (130-400); RDW Coefficient of Variation 12.2 % (11.5-14.5); RDW Standard Deviation 39.4 fL (36.4-46.3); Red Blood Count 3.57 M/uL (4.20-5.40); White Blood Count 11.77 K/ul (4.8-10.8)
[2023-12-20 05:54] LABS: BUN Creatinine Ratio 11.5 (10-20); Calcium 8.1 mg/dl (8.6-10.3); Creatinine Clr Calc Pharmacy 29.3 ml/min; Est GFR (African American) 30.2 ml/min; Est GFR (Non-African American) 26.1 ml/min; Potassium 3.8 mmol/L (3.5-5.1)
[2023-12-20] MEDS: GABAPENTIN 600 MG TAB PO SCH (08:42)
--- NOTE | 2023-12-20 10:23 | Hospitalist Progress Note ---
Date of Service December 20, 2023 Assessment & Plan (1) Sepsis: Plan: Source: toe osteomyelitis and foot cellulitis s/p right 3rd toe amputation with podiatry, Dr. Coffey 12/17/23 - febrile intermittently post-operatively, slight elevation in temp 12/18, since resolved - CBC reviewed, WBC elevation 12/19 - blood cultures showed micrococcus species, likely contaminant - surgical culture preliminary showed streptococcus intermedius - BMP reviewed, worsening kidney function, Cr 2.0 - reviewed random vancomycin levels, high but drawn 5 hours after a dose was given - As per podiatry - clean bone margins with amputation but possible plantar tendon involvement, surgical culture from infected toe - ID consulted - if no residual bone infection and no recurrence of fevers, 3 weeks PO abx depending on culture results - if cultures are no growth - therapy with doxycycline + Augmentin - Continue with IV Zosyn - Discontinue IV Vanco with high levels and worsening kidney function, transition to PO doxy for MRSA/staph coverage until cultures finalized - preferred regimen based off preliminary surgical cultures is Augmentin BID x 3 weeks - Follow CBC, BMP (2) Acute kidney injury: Plan: worsening kidney function 12/19, Cr 2.00, CrCl 29.3 likely ATN due to nephrotoxic agent, vancomycin, and sepsis; perhaps had intraoperative hypotension and then on SHILO inhibitor - discontinue vancomycin, switched to PO doxy - gabapentin renally dosed - hold lisinopril, can add amlodipine if needed for elevated BPs - repeat BMP mid day showed mildly worsening kidney function - renal u/s WNL - post void bladder scan 210mL, will recheck with next void - continue to trend BMP -Check UA, urine sodium and creatinine -Give 2 L LR (3) PAD (peripheral artery disease): Plan: - Arterial Doppler suspicious for PAD; proximal luminal narrowing of distal superficial femoral aa, popiteal aa, and dorsalis pedis aa - vascular consulted - follow up with toe pressure/ TBI outpatient - lipid panel reviewed showed low HDL, otherwise WNL - started patient on baby aspirin and atorvastatin (4) T2DM (type 2 diabetes mellitus): Plan: - Hemoglobin A1C 11.1% - Reduced her usual lantus from 23 units BID to 10 units BID on admission - with consistently elevated BG levels, will increase lantus again to 23 units BID and tighten down NovoLog - Stopped SGLT-2 inhibitor on admission, consider not going back on this given increased risk of amputations compared to alternative treatments - special education paraeducator consulted (5) Hypertension: Plan: stable - continue metoprolol - hold lisinopril in setting of JOLENE - can add amlodipine if needed (6) Cellulitis: Plan: right foot cellulitis - see sepsis workup above - will wait for surgical cultures prior to d/c (7) Acute osteomyelitis of toe: Plan: right 3rd distal toe amputation 12/17/23 - see sepsis workup above - PT/OT recommending discharge home when medically stable with surgical shoe Plan Diabetic neuropathy - continue gabapentin VTE prophylaxis - Lovenox 40mg SQ daily reduced to 30mg with JOLENE Diet - T2DM Code status: FULL CODE Dispo: med surg, will likely d/c in next 24-48 hours if improved kidney function Will wait for surgical cultures and improved kidney function prior to discharge. Admission and Anticipated Discharge Date Admission Date: December 14, 2023 Supervising Physician Co-Signing Physician Notes PA Supervision Note: I personally saw and examined the patient. I verified all mathew points and agree with PROSPER Lira with the following exceptions and/or additions: S-patient frustrated with being in the hospital. She now has acute kidney injury, has been making urine. Has not moved her bowels since the day of the surgery. No pain O- Vitals reviewed Gen: [AAOx3, NAD] HEENT: [anicteric sclerae, EOMI] CV: [RRR no mgr nl S1S2] Pulm: [CTAB no wcr] Ext: [Right foot and ankle in splint and Shilo wrap not removed] CBC, BMP, repeat BMP reviewed, cultures reviewed [id number] female here with right third toe osteomyelitis and foot cellulitis, growing Streptococcus intermedius thus far Also with acute kidney injury Check urine sodium, urine creatinine, urinalysis, give 2 L IV fluids Hold lisinopril, stop vancomycin Follow BMP Continue IV Zosyn and changed to p.o. doxycycline Subjective Patient doing well overnight, no acute events. She stated that her glucose levels have been better since yesterday. She is feeling well and ready to go home. She denies dysuria, difficulty urinating, and hematuria. She denies pain. Review of Systems Review of Systems: See HPI Physical Exam Physical Exam: The patient is awake, alert and oriented 3, well developed and well nourished, normocephalic and atraumatic, in no acute distress. Non-toxic appearing. HEENT- EOMI, mucous membranes moist. Hearing grossly intact. Heart-normal S1 and S2. No murmurs, rubs or gallops. Lungs-clear bilaterally, no respiratory distress, no accessory muscle use. Abdomen-normal bowel sounds and soft. No ascites noted. Non-tender. Extremities- no clubbing, cyanosis, or edema. Sensorineural exam intact of right foot. Surgical dressing secured with shilo bandage and surgical shoe. Rheumatologic-normal range of motion. Psychiatric-normal affect. Results & Data Results & Data Vital Signs (Past 12 Hours) Vital Signs Temp Pulse Pulse Resp BP Pulse Ox O2 Del Method 12/20/23 08:00 Room Air 12/20/23 07:50 36.6 C 59 L 18 124/77 93 Room Air 12/20/23 07:00 61 12/19/23 23:00 36.8 C 68 16 111/70 94 Room Air Laboratory Results CBC, BMP x 2, vancomycin level reviewed Diagnostic Findings Renal ultrasound reviewed PG Care Time/CCT Total # of Minutes Spent Total Time Spent with Patient: Total time spent is greater than 50% in coordination of care (as documented) at patient's floor/unit and/or counseling patient: Coding Level of Care Code None Diagnoses Sepsis without acute organ dysfunction, due to unspecified organism A41.9 Sepsis acute organ dysfunction status: without acute organ dysfunction Sepsis type: sepsis due to unspecified organism Acute kidney injury N17.9 PAD (peripheral artery disease) I73.9 Type 2 diabetes mellitus with foot ulcer, with long-term current use of insulin E11.621; L97.509; Z79.4 Diabetes mellitus complication detail: with foot ulcer Diabetes mellitus complication status: with skin complications Diabetes mellitus buttermaker insulin use: with care home use Primary hypertension I10 Hypertension type: primary hypertension Cellulitis of right lower extremity L03.115 Laterality: right Site of cellulitis: extremity Site of cellulitis of extremity: lower extremity Acute osteomyelitis of toe of right foot M86.171 Laterality: right (1) Sepsis Sepsis acute organ dysfunction status: without acute organ dysfunction Sepsis type: sepsis due to unspecified organism Qualified Code(s): A41.9 - Sepsis, unspecified organism (4) T2DM (type 2 diabetes mellitus) Diabetes mellitus complication detail: with foot ulcer Diabetes mellitus complication status: with skin complications Diabetes mellitus buttermaker insulin use: with buttermaker use Qualified Code(s): E11.621 - Type 2 diabetes mellitus with foot ulcer; L97.509 - Non-pressure chronic ulcer of other part of unspecified foot with unspecified severity; Z79.4 - nursing home (current) use of insulin (5) Hypertension Hypertension type: primary hypertension Qualified Code(s): I10 - Essential (primary) hypertension (6) Cellulitis Laterality: right Site of cellulitis: extremity Site of cellulitis of extremity: lower extremity Qualified Code(s): L03.115 - Cellulitis of right lower limb (7) Acute osteomyelitis of toe Laterality: right Qualified Code(s): M86.171 - Other acute osteomyelitis, right ankle and foot
[2023-12-20] MEDS: DOXYCYCLINE HYCLATE 100 MG CAP PO SCH (10:35)
--- NOTE | 2023-12-20 12:42 | Ultrasound Report ---
ULTRASOUND KIDNEYS AND BLADDER CLINICAL HISTORY: Acute renal insufficiency. COMPARISON STUDY: No priors. TECHNIQUE: Real-time, grayscale, and color flow sonography of the kidneys and bladder is performed. I mages are reviewed in the transverse and longitudinal planes. FINDINGS: Kidneys: The kidneys are normal in size and echotexture. The right kidney measures 10.8 cm in length and the left kidney measures 11.6 cm in length. There is no hydronephrosis. No shadowing renal calcu li are identified. There is no sonographic evidence of contour deforming renal mass lesion. No perine phric fluid is identified. Bladder: The bladder is normal in appearance. Ureteral jets were not seen. IMPRESSION: Normal sonographic examination of the kidneys and bladder. ACT 112: Negative or not required by law. Electronically signed by: Oh Parsons M.D. 12/20/2023 12:41 PM
[2023-12-20 13:22] LABS: Calcium 8.5 mg/dl (8.6-10.3); Creatinine Clr Calc Pharmacy 28.2 ml/min; Est GFR (African American) 28.8 ml/min; Est GFR (Non-African American) 24.9 ml/min; Potassium 4.1 mmol/L (3.5-5.1)
[2023-12-20] MEDS: LACTATED RINGER'S 1,000 ML IV SCH (16:40)
--- NOTE | 2023-12-20 18:59 | Billing Data ---
Date of Service December 20, 2023 Coding Level of Care Code 42763 SUB INP/OBS CARE MIN
[2023-12-20 19:31] LABS: Appearance Urine Clear (Clear); Bilirubin Urine Negative (Negative); Blood Urine Negative (Negative); Color Urine Yellow; Glucose Urine UA Trace (Negative); Ketones Urine Negative (Negative); Leukocyte Esterase Urine Negative (Negative); Nitrite Urine Negative (Negative); Protein Urine Negative (Negative); Specific Gravity Urine 1.005 (1.000-1.030); Urobilinogen Urine Negative (Negative); pH Urine 5.5 (4.5-7.5)
[2023-12-20 19:56] LABS: Creatinine Urine Random 23.1 mg/dl
[2023-12-20] MEDS: LANTUS PER UNIT CHARGE SC SCH (20:10)
[2023-12-20] MEDS: ENOXAPARIN INJ 30 MG/0.3 ML SYR SQ SCH (20:16)
[2023-12-20] MEDS: SENNA 8.6 MG TAB PO ONE ×2 (20:26)
[2023-12-21] MEDS ORDERED: VANCOMYCIN LEVEL ONE (05:00)
[2023-12-21 06:21] LABS: Hematocrit (blood only) 30.1 % (37.0-47.0); Hemoglobin 9.8 g/dl (12.0-16.0); Mean Corpuscular Hgb Conc 32.6 g/dL (32.0-36.0); Mean Platelet Volume 10.8 fL (9.4-12.4); Platelet Count 360 K/uL (130-400); RDW Coefficient of Variation 12.2 % (11.5-14.5); White Blood Count 10.51 K/ul (4.8-10.8)
[2023-12-21 06:47] LABS: BUN Creatinine Ratio 12.1 (10-20); Calcium 8.2 mg/dl (8.6-10.3); Creatinine Clr Calc Pharmacy 22.8 ml/min; Est GFR (African American) 22.3 ml/min; Est GFR (Non-African American) 19.3 ml/min; Potassium 4.4 mmol/L (3.5-5.1)
[2023-12-21] MEDS: DOCUSATE SODIUM 100 MG CAP PO PRN (08:46)
--- NOTE | 2023-12-21 10:03 | Infectious Disease Progress Nt ---
Date of Service December 21, 2023 Assessment & Plan (1) Acute osteomyelitis of toe: (2) Cellulitis: (3) PAD (peripheral artery disease): Plan ID Problem List: 1. Right third toe distal phalanx OM s/p amputation on 12/16 (clean margins per primary, c/f tendon involvement) 2. RLE cellulitis 3. Fever, resolved 4. Acute kidney injury 5. Micrococcus in 12/13 BCx 1 of 4 bottles, likely contaminant 6. Mild PAD 7. h/o T2DM Impression: Monie Hay is a 63yo F with h/o T2DM, neuropathy, charcot foot s/p surgery on the left foot, HTN who presented on 12/13 with c/f right third toe infection. On admission, she was afebrile, hypertensive but otherwise stable. Initial labs with WBC 16.77, Cr 0.80. AST/ALT wnl. ESR 78, CRP 17.82. PCT 0.19. HbA1c 11.1. Right toe XR with acute OM of third distal phalanx. Right LE arterial doppler with proximal luminal narrowing, otherwise patent arteries in RLE. CXR negative. QTC 435. She was started on empiric vancomycin and zosyn. S/p OR 12/16 and underwent right third toe amputation (per primary team, she had clean margins, there was concern for plantar tendon involvement). ID consulted for assistance on 12/17. Discussion Pt with toe osteomyelitis and SSTI s/p right 3rd toe amputation with podiatry, Dr. Coffey 12/17/23. On 12/21/23, I discussed with Dr. Coffey on 12/21/23 pathology was sent from the distal (infected/amputated portion) of the toe, not from the proximal margin. He reports that the osseous infection was confined to the DIPJ, mostly the distal phalanx and that out of caution he did a total toe amputation at the MTPJ which should have removed all of the bony infection. He did note some purulence in the tendon sheaths plantar and dorsally but not deep enough for bone involvement. The OR Cx from 12/16 (again, from the infected/distal portion) grew Strep intermedius and mixed skin jayy. The pt was on broad-spectrum abx (vancomycin and pip-tazo) prior to OR which may have reduced Cx yield somewhat (though less likely that pathogens like MRSA or PsA would have been involved). Therefore, with low concern for remaining osteomyelitis, and will treat for RLE SSTI with tendon involvement. She did have post-op fevers and leukocytosis which have resolved. If this recurs, would repeat BCx. Note 12/13 BCx with Micrococcus in 1 of 4 bottles, which is a likely contaminant. Can change to Unasyn (which will cover the Strep and polymicrobial/anaerobic organisms) for coverage of RLE SSTI including tendon involvement. She was on pre-operative vancomycin, and would be reasonable to continue doxycycline. Can change to doxycycline and Augmentin upon discharge to complete a tentative 3- week course, with close follow-up. Recommendations: - Can change to Unasyn 3g IV q12h (renally dosed if CrCl improves >30 will need to increase frequency). Reasonable to continue doxycycline 100 mg PO BID - If improving and will be discharging, can transition to doxycycline 100 mg PO BID and Augmentin to complete a 3-week course for SSTI/tendon involvement (12/1601/06/24). If CrCl improves >30, would do Augmentin 875 mg PO BID. If CrCl remains <30, would do Augmentin 500 mg PO BID. - Monitor for fevers including as an outpatient if recurrence then would repeat BCx - Ensure close follow-up with podiatry, wound care, and primary care Plan discussed with Dr. Nuno. Thank you for letting ID participate in the care of this patient. ID will sign off at this time. If questions, [facility] at [phone]. Gayla Walden MD, [facility] Infectious [facility]/ID Connect ID Connect direct line: [phone] Admission and Anticipated Discharge Date Admission Date: December 14, 2023 Subjective This patient recommendation is based on a telemedicine consult request which was completed asynchronously through chart review and information provided by the primary physician. The patient was not seen or examined today. The evaluation is consultative in nature and all patient care and treatment decisions can either be accepted or rejected by the patient's primary hospital-based treating physician using their own independent medical judgment for their patient. Time Spent Reviewing Chart: 31+ minutes - Afebrile, WBC 10.51 Results & Data Vital Signs (Past 12 Hours) Vital Signs Temp Pulse Resp BP Pulse Ox O2 Del Method 12/21/23 08:03 36.6 C 61 18 166/79 H 97 Room Air 12/20/23 23:08 37.5 C 70 18 132/69 93 Room Air Diagnostic Findings Diagnostics: 12/16 Op note attention was directed to the right third toe where a tennis racquet shaped incision was made extending along the proximal phalanx circumferentially around the proximal phalanx. The incision was carried down to the level of the bone utilizing sharp dissection techniques. The distal phalanx was immediately visible at the distal ulceration and was removed with a rongeur to be sent for culture testing. The toe was then further dissected from the foot via disarticulation at the level of the metatarsal phalangeal joint. Purulent drainage was noted throughout the surgical site which was able to be flushed with copious nonsterile saline. The toe was ulcerated medially and laterally in the interdigital spaces, likely leading to this increased skin and soft tissue infection. A curette was utilized to debride the tracking along the long extensor and long flexor tendons, with the most proximal extension measuring 8 cm proximal to the surgical site. At the completion of surgery, no further purulent drainage was able to be expressed. Attention was then directed laterally, plantarly, to the fourth interspace where palpable fluctuance was noted. An 18-gauge needle was utilized to attempt aspiration of this fluid, none of which was able to be expressed. With continued palpable fluctuance a small incision was made with the 15 blade and bleeding was noted consistent with relative hyperemia. Only a very small amount of purulent drainage was able to be expressed, likely indirect medication with the third toe ulcer. This was flushed with copious amount of sterile saline as well. All incisions were flushed copious amount of saline again. The incisions were sutured utilizing 3-0 nylon in simple interrupted fashion with iodoform packing gauze placed in this third toe surgical site. The foot was dressed with Xeroform gauze, 4 x 4 gauze, Kerlix, and an Shilo wrap. An ABD was added to bolster the surgical dressing as well Micro Data: 12/16 OR Cx: Strep intermedius, moderate probable skin jayy; stain with rare mononucleated cells, rare GPCs 12/13 BCx x2: Micrococcus in 1 of 4 bottles Antibiotic Summary: doxycycline (12/19 present) Unasyn (12/20 present) prior pip-tazo (12/13 12/20) IV vancomycin (12/13 12/18) (1) Acute osteomyelitis of toe Laterality: right Qualified Code(s): M86.171 - Other acute osteomyelitis, right ankle and foot (2) Cellulitis Laterality: right Site of cellulitis: extremity Site of cellulitis of extremity: lower extremity Qualified Code(s): L03.115 - Cellulitis of right lower limb
--- NOTE | 2023-12-21 10:18 | Nephrology Consultation ---
Date of Consultation December 21, 2023 Assessment & Plan (1) Acute kidney injury: Non-oliguric. Baseline creatinine <1 mg/dL. Clinical history consistent with ATN. Renal US without obstruction. UA bland. Volume status acceptable. Electrolytes normal. There is no indication for VOLCANOLOGY TEACHER at this time. Continue to hold lisinopril and empagliflozin. Medications are appropriate for kidney function. Tolerating current dose of gabapentin well. Document strict I/O's. Repeat metabolic profile tomorrow AM. (2) Acute osteomyelitis of toe: ID consultation reviewed. 1/ of blood cultures from admission with Micrococcus felt to be contaminate. Clinically improving. Remains on Unasyn and doxycycline. (3) PAD (peripheral artery disease): Vascular consultation and imaging reviewed. No additional evaluation or intervention required at this time. History of Present Illness Reason for Consultation: JOLENE Requesting Physician: Nuris Nuno MD Attending Physician: Nuris Nuno MD History of Present Illness Monie Hay is a 63 year-old female with diabetes mellitus II, hypertension, neuropathy, left Charcot foot who presented to [facility] on December 13 with cellulitis of the right lower extremity and right third toe infection. X ray was consistent with acute OM of third distal phalanx. Vascular studies demonstrating moderate PAD with luminal narrowing but overall adequate blood flow. Empiric antibiotic therapy was started with vancomycin and Zosyn. Right third toe amputation was completed on December 16. Monie tolerated surgery well. Serum creatinine remained stable at 0.6 mg/dL on December 17. Creatinine was 2.0 mg/dL yesterday and 2.5 mg/dL today. Monie remains non-oliguric. She was resting comfortably in her hospital bed this morning. She wanted to go home today. She is not experiencing fevers or chills. She denies fluid retention or edema. She denies significant pain. Blood glucose control improving. Vancomycin has been held s/p supratherapeutic level. ID has recommended Unasyn and doxycycline. Allergies Allergy/AdvReac Type Severity Reaction Status Date / Time No Known Allergies Allergy Verified 12/14/23 16:24 Home Medications Medication Instructions Recorded Confirmed Type empagliflozin 25 mg tablet 25 mg PO QAM 12/14/23 12/14/23 History (Jardiance) ergocalciferol (vitamin D2) 1,250 50,000 unit PO Q14D 12/14/23 12/14/23 History mcg (50,000 unit) capsule gabapentin 600 mg tablet 600 mg PO BID 12/14/23 12/14/23 History insulin glargine 100 unit/mL (3 23 unit subcut BID 12/14/23 12/14/23 History mL) subcutaneous pen (Lantus Solostar U-100 Insulin) lisinopril 30 mg tablet 30 mg PO QAM 12/14/23 12/14/23 History metoprolol succinate 50 mg 50 mg PO HS 12/14/23 12/14/23 History tablet,extended release 24 hr risedronate 150 mg tablet 150 mg PO MONTHLY 12/14/23 12/14/23 History tramadol 50 mg tablet 50 mg PO Q6H PRN Pain 12/14/23 12/14/23 History vit A 7,160 unit-vit C 113 mg-vit 1 tab PO QAM 12/14/23 12/14/23 History E 100 cefq-thjw-zikgai tablet Patient History Medical History Osteoporosis Hypertension Neuropathy T2DM (type 2 diabetes mellitus) Social History Smoking Status: Never smoker Hx Alcohol Use: No Hx Substance Use: No Preferred Language: Occitan Communication Ability: Effective Electric Blanket Packer Required: No Beliefs That Will Affect Care: None Current Living Situation: Spouse Current Living Situation Comment: with Other Information That Helps Us Care for You: No Feels Safe at Home: Yes Safety Concerns: Feels Safe At This Time Assistive Devices: None Review of Systems Review of Systems: All systems reviewed & are unremarkable except as noted in HPI & below Physical Exam Constitutional: well developed; no acute distress Eyes: no scleral abnormality and no corneal abnormality ENMT: Mouth: oral mucous membranes not dry Neck: normal visual inspection and trachea midline Respiratory: normal respiratory effort Auscultation: lungs clear to auscultation bilaterally Cardiovascular: Rate/Rhythm: regular rate Heart Sounds: normal S1 and normal S2 Extremities: no edema Musculoskeletal: Extremities: no cyanosis and no clubbing Skin: no jaundice Neurologic: Motor/Sensory: no tremor and no asterixis Psychiatric: Orientation: alert and oriented x 3 Results & Data Vital Signs (Past 12 Hours) Vital Signs Temp Pulse Resp BP Pulse Ox O2 Del Method 12/21/23 08:03 36.6 C 61 18 166/79 H 97 Room Air 12/20/23 23:08 37.5 C 70 18 132/69 93 Room Air Laboratory Results Laboratory Results - last 24 hr 12/20/23 12/20/23 12/20/23 10:49 11:18 12:54 WBC RBC Hgb Hct MCV MCH MCHC RDW Std Deviation RDW Coeff of Nichol Plt Count MPV Sodium 134 L Potassium 4.1 Chloride 96 L Carbon Dioxide 31 Anion Gap 7 BUN 27 H Creatinine 2.08 H Est Cr Clr Drug Dosing 28.2 Est GFR ( Amer) 28.8 Est GFR (Non-Af Amer) 24.9 BUN/Creatinine Ratio 13.0 Glucose 237 H POC Glucose 243 H Calcium 8.5 L Urine Color Urine Appearance Urine pH Ur Specific [place] Urine Protein Urine Glucose (UA) Urine Ketones Urine Blood Urine Nitrite Urine Bilirubin Urine Urobilinogen Ur Leukocyte Esterase Ur Random Creatinine Ur Random Sodium Random Vancomycin 35.7 H* 12/20/23 12/20/23 12/20/23 16:42 18:25 20:02 WBC RBC Hgb Hct MCV MCH MCHC RDW Std Deviation RDW Coeff of Nichol Plt Count MPV Sodium Potassium Chloride Carbon Dioxide Anion Gap BUN Creatinine Est Cr Clr Drug Dosing Est GFR ( Amer) Est GFR (Non-Af Amer) BUN/Creatinine Ratio Glucose POC Glucose 260 H 251 H Calcium Urine Color Yellow Urine Appearance Clear Urine pH 5.5 Ur Specific [place] 1.005 Urine Protein Negative Urine Glucose (UA) Trace H Urine Ketones Negative Urine Blood Negative Urine Nitrite Negative Urine Bilirubin Negative Urine Urobilinogen Negative Ur Leukocyte Esterase Negative Ur Random Creatinine 23.1 Ur Random Sodium 19 Random Vancomycin 12/21/23 12/21/23 05:32 08:03 WBC 10.51 RBC 3.50 L Hgb 9.8 L Hct 30.1 L MCV 86.0 MCH 28.0 MCHC 32.6 RDW Std Deviation 38.0 RDW Coeff of Nichol 12.2 Plt Count 360 MPV 10.8 Sodium 139 Potassium 4.4 Chloride 103 Carbon Dioxide 30 Anion Gap 6 BUN 31 H Creatinine 2.57 H D Est Cr Clr Drug Dosing 22.8 Est GFR ( Amer) 22.3 Est GFR (Non-Af Amer) 19.3 BUN/Creatinine Ratio 12.1 Glucose 109 H POC Glucose 103 H Calcium 8.2 L Urine Color Urine Appearance Urine pH Ur Specific [place] Urine Protein Urine Glucose (UA) Urine Ketones Urine Blood Urine Nitrite Urine Bilirubin Urine Urobilinogen Ur Leukocyte Esterase Ur Random Creatinine Ur Random Sodium Random Vancomycin Diagnostic Findings ULTRASOUND KIDNEYS AND BLADDER FINDINGS: Kidneys: The kidneys are normal in size and echotexture. The right kidney measures 10.8 cm in length and the left kidney measures 11.6 cm in length. There is no hydronephrosis. No shadowing renal calculi are identified. There is no sonographic evidence of contour deforming renal mass lesion. No perinephric fluid is identified. Bladder: The bladder is normal in appearance. Ureteral jets were not seen. IMPRESSION: Normal sonographic examination of the kidneys and bladder. PG Care Time/CCT Total # of Minutes Spent Total Time Spent with Patient: Total time spent is greater than 50% in coordination of care (as documented) at patient's floor/unit and/or counseling patient: Coding Level of Care Code 41409 INT INP/OBS CARE MIN Diagnoses Acute kidney injury N17.9 Acute osteomyelitis of toe of right foot M86.171 Laterality: right PAD (peripheral artery disease) I73.9 (2) Acute osteomyelitis of toe Laterality: right Qualified Code(s): M86.171 - Other acute osteomyelitis, right ankle and foot
--- NOTE | 2023-12-21 14:28 | Hospitalist Progress Note ---
Date of Service December 21, 2023 Assessment & Plan (1) Sepsis: Plan: Source: Right third toe OM and foot cellulitis Admitted and started on IV Zosyn and vanco s/p right 3rd toe amputation and foot wash out with podiatry, Dr. Coffey 12/17/23-pathology pending but Podiatry says the proximal bone margin was not involved on visual inspection Was febrile intermittently post-operatively, mild leukocytosis now resolved Blood cultures showed micrococcus species, likely contaminant Surgical culture preliminary showed streptococcus intermedius, not final yet With JOLENE--> dcd Vanco and started po doxy ID consult appreciated-change Zosyn to Unasyn and upon discharge, change to po Augmentin (renally dosed as needed) and doxycycline to complete 3 weeks through 01/06/24 Monitor for fevers including as an outpatient if recurrence then would repeat BCx Follow once weekly CBC, CMP, ESR, CRP while on antibiotics Ensure close follow-up with podiatry, wound care, and primary care Stable for discharge from Podatry and ID recommendation Need to f/u final wound cultures (2) Acute kidney injury: Plan: With rising ict quality assurance engineer 12/19, Cr 2.00,now up to 2.5 UA bland, FeNa 1.3%-indeterminate likely ATN due to nephrotoxic agent, vancomycin, and sepsis; perhaps had intraoperative hypotension in setting of being on TOR inhibitor Non-oliguric, no lytes abnormalities Renal US normal, and PVR 210mL Discontinued vancomycin, gabapentin renally dosed Continue to hold lisinopril Follow BMP and urine output (3) Acute osteomyelitis of toe: Plan: right 3rd distal toe amputation 12/17/23-see sepsis workup PT/OT recommending discharge home when medically stable with surgical shoe (4) Hypertension: Plan: BPs quite elevated throughout most of hospitalization except around time of surgery Continue metoprolol Continue to hold lisinopril in setting of JOLENE Start amlodipine 5mg daily (5) PAD (peripheral artery disease): Plan: Arterial Doppler suspicious for PAD w/ proximal luminal narrowing of distal SFA, popiteal, and dorsalis pedis Vascular Medicine consulted-no interevention needed, recommends follow up with toe pressure/ TBI outpatient Lipid panel reviewed showed low HDL, otherwise WNL Started patient on baby aspirin and atorvastatin (6) T2DM (type 2 diabetes mellitus): Plan: Hemoglobin A1C 11.1% Reduced her usual lantus from 23 units BID to 10 units BID on admission With persistently but somewhat improved elevated BG levels, continue lantus 23 units BID and tighten down NovoLog CF and CR again today Stopped SGLT-2 inhibitor on admission, consider not going back on this given increased risk of amputations compared to alternative treatments carpentry instructor consulted Pt reports she will now be committed to actually using her home Novolog Plan Diabetic neuropathy - continue gabapentin but is renally dosed VTE prophylaxis - Lovenox 30mg SQ daily Dispo: continued stay for JOLENE, dc to home once JOLENE improving Admission and Anticipated Discharge Date Admission Date: December 14, 2023 Subjective Pt frustrated about having to stay in the hospital for her kidney injury. Denies pain, no SOB, no other issues. No BM since surgery I discussed her care with Podiatry and with ID today Physical Exam Constitutional: WD/WN, vitals as above + obese Respiratory: normal respiratory effort, lungs clear to auscultation Cardiovascular: RRR, no murmur, no edema Gastrointestinal (Abdomen): normal bowel sounds, soft, nontender, no hepatosplenomegaly Musculoskeletal: Extremities: + extremities abnormal to inspection (right leg/ankle/foot in splint/TOR wrap not removed) Psychiatric: A+Ox3, euthymic affect Results & Data Results & Data Vital Signs (Past 12 Hours) Vital Signs Temp Pulse Resp BP Pulse Ox O2 Del Method 12/21/23 11:19 36.6 C 67 18 183/83 H 98 Room Air 12/21/23 08:45 Room Air 12/21/23 08:03 36.6 C 61 18 166/79 H 97 Room Air Laboratory Results CBC, BMP, UA, Ur na and Marking Machine Tender reviewed Wound cx reviewed path pending Medications Administered PG Care Time/CCT Total # of Minutes Spent Total Time Spent with Patient: Total time spent is greater than 50% in coordination of care (as documented) at patient's floor/unit and/or counseling patient: Coding Level of Care Code 24423 SUB INP/OBS CARE 2/35MIN Diagnoses Sepsis without acute organ dysfunction, due to unspecified organism A41.9 Sepsis acute organ dysfunction status: without acute organ dysfunction Sepsis type: sepsis due to unspecified organism Acute kidney injury N17.9 Acute osteomyelitis of toe of right foot M86.171 Laterality: right Primary hypertension I10 Hypertension type: primary hypertension PAD (peripheral artery disease) I73.9 Type 2 diabetes mellitus with foot ulcer, with long-term current use of insulin E11.621; L97.509; Z79.4 Diabetes mellitus complication detail: with foot ulcer Diabetes mellitus complication status: with skin complications Diabetes mellitus buttermaker helper insulin use: with buttermaker helper use (1) Sepsis Sepsis acute organ dysfunction status: without acute organ dysfunction Sepsis type: sepsis due to unspecified organism Qualified Code(s): A41.9 - Sepsis, unspecified organism (3) Acute osteomyelitis of toe Laterality: right Qualified Code(s): M86.171 - Other acute osteomyelitis, right ankle and foot (4) Hypertension Hypertension type: primary hypertension Qualified Code(s): I10 - Essential (primary) hypertension (6) T2DM (type 2 diabetes mellitus) Diabetes mellitus complication detail: with foot ulcer Diabetes mellitus complication status: with skin complications Diabetes mellitus buttermaker helper insulin use: with prison use Qualified Code(s): E11.621 - Type 2 diabetes mellitus with foot ulcer; L97.509 - Non-pressure chronic ulcer of other part of unspecified foot with unspecified severity; Z79.4 - superintendent container terminal (current) use of insulin
[2023-12-21] MEDS: amLODIPine BESYLATE 5 MG TAB PO SCH (15:54)
[2023-12-21] MEDS: AMPICILLIN/SULBACTAM SOD 3,000 MG/100 ML BAG IV SCH (17:16)
[2023-12-22] MEDS: CARBOHYDRATES FOR HYPOGLYCEMIA PO PRN (03:02)
--- NOTE | 2023-12-22 07:14 | Hospitalist Progress Note ---
Date of Service December 22, 2023 Assessment & Plan (1) Sepsis: Plan: Source: Right third toe OM and foot cellulitis s/p right 3rd toe amputation and foot wash out with podiatry, Dr. Coffey 12/17/23- pathology pending but Podiatry says the proximal bone margin was not involved on visual inspection Blood cultures showed micrococcus species, likely contaminant Surgical culture preliminary showed streptococcus intermedius, not final yet ID consult appreciated-change Zosyn to Unasyn, upon discharge, change to po Augmentin (renally dosed as needed) and doxycycline to complete 3 weeks through 01/06/24 Follow once weekly CBC, CMP, ESR, CRP while on antibiotics Ensure close follow-up with podiatry, wound care, and primary care Stable for discharge from Podatry and ID recommendation Need to f/u final wound cultures (2) Acute kidney injury: Plan: likely ATN due to nephrotoxic agent, vancomycin, and sepsis; perhaps had intraoperative hypotension in setting of being on TOR inhibitor UA bland, FeNa 1.3%-indeterminate Non-oliguric, no lytes abnormalities Renal US normal, and PVR 210mL Discontinued vancomycin, gabapentin renally dosed Continue to hold lisinopril (3) Hypertension: Plan: BPs quite elevated throughout most of hospitalization except around time of surgery Continue metoprolol Continue to hold lisinopril in setting of JOLENE Started amlodipine 5mg daily (4) PAD (peripheral artery disease): Plan: Arterial Doppler suspicious for PAD w/ proximal luminal narrowing of distal SFA, popiteal, and dorsalis pedis Vascular Medicine consulted-no interevention needed, recommends follow up with toe pressure/ TBI outpatient Lipid panel reviewed showed low HDL, otherwise WNL Started patient on baby aspirin and atorvastatin (5) T2DM (type 2 diabetes mellitus): Plan: Hemoglobin A1C 11.1% Reduced her usual lantus from 23 units BID to 10 units BID on admission With persistently but somewhat improved elevated BG levels, continue lantus 23 units BID and tighten down NovoLog CF and CR again today Stopped SGLT-2 inhibitor on admission, consider not going back on this net finisher consulted Pt reports she will now be committed to actually using her home Novolog Plan Diabetic neuropathy - continue gabapentin but is renally dosed PT/OT recommending discharge home when medically stable with surgical shoe VTE prophylaxis - Lovenox 30mg SQ daily Dispo: continued stay for JOLENE, dc to home once JOLENE improving and final culture s ensitivity resulted Admission and Anticipated Discharge Date Admission Date: December 14, 2023 Results & Data Results & Data Vital Signs (Past 12 Hours) Vital Signs Temp Pulse Resp BP Pulse Ox O2 Del Method 12/21/23 23:58 98.2 F 64 18 112/69 92 Room Air PG Care Time/CCT Total # of Minutes Spent Total Time Spent with Patient: Total time spent is greater than 50% in coordination of care (as documented) at patient's floor/unit and/or counseling patient: Coding Diagnoses Sepsis without acute organ dysfunction, due to unspecified organism A41.9 Sepsis acute organ dysfunction status: without acute organ dysfunction Sepsis type: sepsis due to unspecified organism Acute kidney injury N17.9 Primary hypertension I10 Hypertension type: primary hypertension PAD (peripheral artery disease) I73.9 Type 2 diabetes mellitus with foot ulcer, with long-term current use of insulin E11.621; L97.509; Z79.4 Diabetes mellitus terminal block assembler insulin use: with alf use Diabetes mellitus complication status: with skin complications Diabetes mellitus complication detail: with foot ulcer (1) Sepsis Sepsis acute organ dysfunction status: without acute organ dysfunction Sepsis type: sepsis due to unspecified organism Qualified Code(s): A41.9 - Sepsis, unspecified organism (3) Hypertension Hypertension type: primary hypertension Qualified Code(s): I10 - Essential (primary) hypertension (5) T2DM (type 2 diabetes mellitus) Diabetes mellitus terminal block assembler insulin use: with terminal block assembler use Diabetes mellitus complication status: with skin complications Diabetes mellitus complication detail: with foot ulcer Qualified Code(s): E11.621 - Type 2 diabetes mellitus with foot ulcer; L97.509 - Non-pressure chronic ulcer of other part of unspecified foot with unspecified severity; Z79.4 - custodial (current) use of insulin
[2023-12-22 07:38] LABS: Calcium 8.3 mg/dl (8.6-10.3); Creatinine Clr Calc Pharmacy 23.6 ml/min; Est GFR (African American) 23.2 ml/min; Potassium 4.4 mmol/L (3.5-5.1)
[2023-12-22 08:22] VITALS: BP 145/81; PULSE 76; RESP 17; TEMP 98.4; O2SAT 98
[2023-12-22] MEDS: POLYETHYLENE (MIRALAX) 17 GM PACK PO PRN (08:34)
[2023-12-22] MEDS: LANTUS PER UNIT CHARGE SC SCH (09:01)
--- NOTE | 2023-12-22 09:38 | Nephrology Progress Note ---
Date of Service December 22, 2023 Assessment & Plan (1) Acute kidney injury: Plan: Non-oliguric. Baseline creatinine <1 mg/dL. Clinical history consistent with ATN. Renal US without obstruction. UA bland. Volume status acceptable. Electrolytes normal. Creatinine plateaued. Continue to hold lisinopril and empagliflozin. Medications are appropriate for kidney function. Repeat metabolic profile or Thursday. Follow up with PCP +/- me within 1-2 weeks of hospital discharge. (2) Acute osteomyelitis of toe: Plan: Remains on Unasyn and doxycycline. (3) Hypertension: Plan: Euvolemic. BP controlled with amlodipine and metoprolol. Continue to hold lisinopril pending outpatient follow up and improvement in kidney function. Admission and Anticipated Discharge Date Admission Date: December 14, 2023 Subjective No acute events overnight. No complaints this AM. Monie feels well and would like to go home today. Review of Systems Review of Systems: All systems reviewed & are unremarkable except as noted in HPI & below Physical Exam Constitutional: well developed; no acute distress Eyes: no scleral abnormality and no corneal abnormality ENMT: Mouth: oral mucous membranes not dry Neck: normal visual inspection and trachea midline Respiratory: normal respiratory effort Auscultation: lungs clear to auscultation bilaterally Cardiovascular: Rate/Rhythm: regular rate Heart Sounds: normal S1 and normal S2 Extremities: no edema Musculoskeletal: Extremities: no cyanosis and no clubbing Skin: no jaundice Neurologic: Motor/Sensory: no tremor and no asterixis Psychiatric: Orientation: alert and oriented x 3 Results & Data Vital Signs (Past 12 Hours) Vital Signs Temp Pulse Resp BP BP Pulse Ox O2 Del Method 12/22/23 08:21 36.9 C 76 17 145/81 H 98 Room Air 12/21/23 23:58 36.8 C 64 18 112/69 92 Room Air Laboratory Results Laboratory Results - last 24 hr 12/21/23 12/21/23 12/21/23 11:56 17:19 20:25 Sodium Potassium Chloride Carbon Dioxide Anion Gap BUN Creatinine Est Cr Clr Drug Dosing Est GFR ( Amer) Est GFR (Non-Af Amer) BUN/Creatinine Ratio Glucose POC Glucose 220 H 121 H 201 H Calcium 12/22/23 12/22/23 12/22/23 02:55 03:18 03:43 Sodium Potassium Chloride Carbon Dioxide Anion Gap BUN Creatinine Est Cr Clr Drug Dosing Est GFR ( Amer) Est GFR (Non-Af Amer) BUN/Creatinine Ratio Glucose POC Glucose 64 L* 68 L* 92 Calcium 12/22/23 12/22/23 06:35 08:04 Sodium 139 Potassium 4.4 Chloride 102 Carbon Dioxide 31 Anion Gap 6 BUN 30 H Creatinine 2.49 H Est Cr Clr Drug Dosing 23.6 Est GFR ( Amer) 23.2 Est GFR (Non-Af Amer) 20.0 BUN/Creatinine Ratio 12.0 Glucose 109 H POC Glucose 104 H Calcium 8.3 L PG Care Time/CCT Total # of Minutes Spent Total Time Spent with Patient: Total time spent is greater than 50% in coordination of care (as documented) at patient's floor/unit and/or counseling patient: Coding Level of Care Code 38064 SUB INP/OBS CARE 3/50MIN Diagnoses Acute kidney injury N17.9 Acute osteomyelitis of toe of right foot M86.171 Laterality: right Primary hypertension I10 Hypertension type: primary hypertension (2) Acute osteomyelitis of toe Laterality: right Qualified Code(s): M86.171 - Other acute osteomyelitis, right ankle and foot (3) Hypertension Hypertension type: primary hypertension Qualified Code(s): I10 - Essential (primary) hypertension
--- NOTE | 2023-12-22 16:35 | Discharge Summary ---
Discharge Summary Date of Service December 22, 2023 Principal Dx & Hospital Course #1 = Principal Diagnosis (1) Sepsis: Source: Right third toe OM and foot cellulitis s/p right 3rd toe amputation and foot wash out with podiatry, Dr. Coffey 12/17/23- pathology pending but Podiatry says the proximal bone margin was not involved on visual inspection Blood cultures showed micrococcus species, likely contaminant Surgical culture preliminary showed streptococcus intermedius, not final yet ID consult appreciated-change Zosyn to Unasyn, upon discharge, change to po Augmentin (renally dosed as needed) and doxycycline to complete 3 weeks through 01/06/24 Ensure close follow-up with podiatry, wound care, and primary care Stable for discharge from Podatry and ID recommendation Need to f/u final surgical pathology pending at [place] (2) Acute kidney injury: likely ATN due to nephrotoxic agent, vancomycin, and sepsis; perhaps had intraoperative hypotension in setting of being on TOR inhibitor UA bland, FeNa 1.3%-indeterminate Non-oliguric, no lytes abnormalities Renal US normal, and PVR 210mL Discontinued vancomycin, gabapentin renally dosed at D/c Continue to hold lisinopril substituted amlodipine at dc (3) Hypertension: BPs quite elevated throughout most of hospitalization except around time of surgery Continue metoprolol Continue to hold lisinopril in setting of JOLENE Started amlodipine 5mg daily (4) PAD (peripheral artery disease): Arterial Doppler suspicious for PAD w/ proximal luminal narrowing of distal SFA, popiteal, and dorsalis pedis Vascular Medicine consulted-no interevention needed, recommends follow up with toe pressure/ TBI outpatient Lipid panel reviewed showed low HDL, otherwise WNL Started patient on baby aspirin and atorvastatin follow up with Dr Fermin (5) T2DM (type 2 diabetes mellitus): Hemoglobin A1C 11.1% Reduced her usual lantus from 23 units BID With persistently but somewhat improved elevated BG levels, continue lantus 23 units BID and reinforced use of insulin ssi, Stopped SGLT-2 inhibitor on admission, consider not going back on this visual educator did visit pt Pt reports she will now be committed to actually using her home Novolog Plan Diabetic neuropathy - continue gabapentin but is renally dosed Notes For Next Care Provider will need to have follow up outpt labs surgical follow up for wound, Dr Fermin for PAD and neprhology, ideally would consider endocrine but pt not agreeable at discharge Admission HPI Per Admitting Provider Monie Hay is a 63 year old female with type 2 diabetes who presents to the ER with foot and toe infection. No fever or chills. First noticed the tip of her third toe becoming black and progressively became more swollen and erythematous over the last week. She saw her doctor today who sent her to the ER as likely needed amputated. She has a significant of history of foot surgery on the left side due to Charcot's foot. She has no known peripheral artery disease, history of heart attack or stroke. She has significant neuropathy in both feet from diabetes. Discharge Exam pt doing well surrounded by family wound is dressed, using post op shoe no other distress Discharge Plan Discharge Items Patient Disposition: Home - Self-Care Reason For Visit: SEPSIS, ACUTE OSTEMYELITIS Discharge Diagnosis: diabetic foot infection requiring surgery uncontrolled diabetes diabetic kidney disease Activity: Resume your previous activity Non-emergency contact: Primary Care Provider, Specialist and Vice President Biostatistics Call non-emergency contact if: your symptoms worsen Follow-up/Referrals: Erwin Ramos DO [Physician] - 12/28/23 2:40 pm Misael Fermin MD [Physician] - (THE OFFICE WILL CALL YOU WITHIN THE NEXT COUPLE DAYS TO SCHEDULE A FOLLOW-UP HOSPITAL VISIT.) Jeferson Oneil PA-C [Primary Care Provider] - (PLEASE CALL YOUR PRIMARY CARE PROVIDER TO SCHEDULE A HOSPITAL DISCHARGE FOLLOW-UP APPOINTMENT WITHIN 7-10 DAYS) Sonido Coffey DPM [Physician] - 01/06/24 10:30 am Diet: Carb Consistent or DM2 Addtl Attending Provider Instructions: you will be on two antibiotics until January 05 you did have your gabapentin dose reduced based on your kidney function we are currently holding your lisinopril based on your kidney function please pay close attention to your blood sugar, checking your sugar 4 times a day for now and using your "log" insulin to dose with these checks, keep your twice a day long acting insulin as you have at 23 units and if you are having low sugars, reduce the dose by 5 units each. If you notice continued lows, check how you are calculating your sliding scale dose of short acting insulin please follow up with your primary care to discuss your insulin treatment Pending Studies at Discharge: Yes Studies:: surgical pathology Stand-Alone Forms: My [facility], Smoking Cessation Medications and DC Order Prescriptions: New amoxicillin-pot clavulanate [Augmentin] 500-125 mg tablet 1 tab PO BID Qty: 30 0RF gabapentin 600 mg Tablet 300 mg PO BID Qty: 60 0RF doxycycline hyclate 100 mg Capsule 100 mg PO BID Qty: 30 0RF insulin aspart U-100 [Novolog U-100 Insulin aspart] 100 unit/mL Solution 1 sliding scale dose SC ACHS Qty: 10 3RF Rx Instructions: for blood sugar over 150 add one unit for every 25 for every 10 grams of carbs in the next meal add one unit amlodipine [Norvasc] 5 mg Tablet 5 mg PO QAM Qty: 30 2RF Continued metoprolol succinate 50 mg tablet extended release 24 hr 50 mg PO HS tramadol 50 mg tablet 50 mg PO Q6H PRN (Reason: Pain) ergocalciferol (vitamin D2) 1,250 mcg (50,000 unit) capsule 50,000 unit PO Q14D insulin glargine [Lantus Solostar U-100 Insulin] 100 unit/mL (3 mL) insulin pen 23 unit SUBCUT BID risedronate 150 mg tablet 150 mg PO MONTHLY vit A-vit C-vit [id number] Tablet 1 tab PO QAM Discontinued gabapentin 600 mg tablet 600 mg PO BID lisinopril 30 mg tablet 30 mg PO QAM Jardiance 25 mg tablet 25 mg PO QAM Discharge Orders: Discharge Order (Routine); Ordered 12/22/23 Ordered By: Tucker Marcial/Other Patient Handouts: Novolog Injectable Solution 100 IU/mL, Doxycycline Oral Capsule, Amoxicillin/Clavulanate Oral Tablet, Amlodipine Oral Tablet, Taking Amlodipine, Kidney Problems, Monitoring Kidney Health, How Your Kidneys Work, Diabetes and Kidney Disease, Acute Kidney Failure Dc Admission Data Admit Date/Time: 12/14/23 16:54 Attending Provider: Tucker Ray Admit Provider: Vlad Gore Primary Care Provider: Jeferson Oneil Other Providers: Vlad Gore; Jerome Cabral; Sonido Coffey; Hermila Corrales; Marlene Scott; Briseida Hoover; Darline Briscoe; Denisa Figueroa; Gayla Walden; Misael Fermin; Erwin Ramos Other Interventions: Discharge Summary Assessment (RN) Last Done: 12/22/23 11:41 Hospital Stay Data Consultations 12/14/23 16:08 ED Decision to Admit Stat 12/14/23 16:56 Consult Orthopedic Surgery Routine 12/15/23 08:53 Consult Podiatry Routine 12/18/23 09:19 Consult Infectious Diseases Routine 12/18/23 11:04 Consult Vascular Surgery Routine 12/21/23 07:43 Consult Nephrology Routine Procedures Performed Operation Date: 12/17/23 14:00 Actual Procedures p Right Third Toe Amputation(Right) - Sonido Coffey DPM Diagnostic Imagining Performed 12/14/23 16:12 US arterial duplex LE RT Stat 12/20/23 10:19 US Renal Bladder [US renal/blad retro comp] Routine Pending Results Patient Have Any Pending Studies at Discharge: Yes Discharge Instructions Given to Patient (Per Discharging Provider) you will be on two antibiotics until January 05 you did have your gabapentin dose reduced based on your kidney function we are currently holding your lisinopril based on your kidney function please pay close attention to your blood sugar, checking your sugar 4 times a day for now and using your "log" insulin to dose with these checks, keep your twice a day long acting insulin as you have at 23 units and if you are having low sugars, reduce the dose by 5 units each. If you notice continued lows, check how you are calculating your sliding scale dose of short acting insulin please follow up with your primary care to discuss your insulin treatment Total Time Total Time Spent Total Time Spent (In Minutes): It required greater than 30 minutes to prepare this patient for discharge. Coding Level of Care Code 67787 INP/OBS DISCH >30 MIN Diagnoses Sepsis without acute organ dysfunction, due to unspecified organism A41.9 Sepsis acute organ dysfunction status: without acute organ dysfunction Sepsis type: sepsis due to unspecified organism Acute kidney injury N17.9 Primary hypertension I10 Hypertension type: primary hypertension PAD (peripheral artery disease) I73.9 Type 2 diabetes mellitus with foot ulcer, with long-term current use of insulin E11.621; L97.509; Z79.4 Diabetes mellitus retirement insulin use: with retirement use Diabetes mellitus complication status: with skin complications Diabetes mellitus complication detail: with foot ulcer
== END 2023-12-22 12:17 | disposition home or self-care (01) | DRG 853 ==
LOC: ED 13:34 → SUATTDRO 16:54 → 2N 16:54

== ENCOUNTER 2024-05-23 09:27 | Inpatient (IN) ==
[~2024-05-23 09:27] MED LIST: ETOMIDATE 2 MG/ML 20 ML VIAL IV ONE; MIDAZOLAM HCL 5 MG/ML 2ML VIAL IV ONE; VECURONIUM BROMIDE 10 MG VIAL IV ONE; fentaNYL citrate PF 100 MCG/2 ML VIAL IV ONE
--- NOTE | 2024-05-23 09:43 | Emergency Department Note ---
Impression & Plan DKA (diabetic ketoacidosis) ADMIT ED Provider Note HPI: History obtained from patient and EMS personnel at the bedside. The patient is a 61-year-old female with history of diabetes, who presents the emergency department with altered mental status. Per EMS report the patient was altered and felt "sick" and therefore a family member at the house called EMS. EMS personnel state the patient was not able to give them much history because she was altered on arrival. Arrival here to the ED the patient is alert to verbal stimuli, she is able to tell me that she does not have any chest pain, she denies any focal complaint of pain. She is somewhat limited in her ability to give me history, she tells me that she thinks that she is in [facility] on arrival here to the ED. She does not have any obvious focal deficits and she can follow commands. On arrival here to the ED the patient's blood pressure is 106/43, she is saturating at 96% on nonrebreather mask, patient is afebrile on arrival. ROS: - Per HPI Differential Diagnosis: Sepsis, intracranial hemorrhage/hemorrhagic CVA, stroke, acute coronary syndrome, viral infection with encephalopathy to include COVID-19, influenza A, critical electrolyte abnormalities, DKA, HHNK, amongst other potential pathologies. *Outpatient medications and allergy history reviewed. PE: General: Alert, patient is not oriented to place or time HEENT: Normocephalic, trachea midline Eyes: Extraocular eye movement is intact, no scleral erythema Pulmonary: Clear to auscultation bilaterally, no wheezing Cardio: Regular rate and rhythm GI: Abdomen is soft to palpation : No suprapubic tenderness MSK: No evidence of trauma or malformation of the extremities, no edema Skin: No evidence of rash Neuro: Alert, no focal deficits, patient ambulates all extremity spontaneously Psychiatric: Confused but cooperative on exam INDEPENDENT INTERPRETATIONS: clam shucker: (As interpreted by myself): - An order was placed for continuous cardiac monitoring - Patient was noted to be in sinus rhythm with a rate of 78 EKG: (As interpreted by myself): Rate: 65 Rhythm: Sinus rhythm Intervals: KY interval 250 ms, otherwise within normal limits ST changes: ST elevation WA criteria not met Time: 937 EKG #2: (As interpreted by myself): Rate: 65 Rhythm: Sinus rhythm Intervals: KY interval prolonged at 250 ms, otherwise within normal limits ST changes: ST elevation in leads II, 3, aVF with reciprocal depression in aVL consistent with ST elevation WA Time: 1025 Chest x-ray: (As interpreted by myself): Atelectasis versus pneumonia in left lung base Interventions provided in ED: -IV fluid bolus x 2, IV sodium bicarbonate, aspirin Medical Decision Making: IV was established and lab work obtained, patient was placed on rn paralegal. Initial EKG interpreted here in the ED shows sinus rhythm without any clear ST elevation myocardial infarction criteria met per my interpretation. Patient stated that she was chest pain-free on arrival. Lab work was obtained that shows a leukocytosis of 14.4, hemoglobin is stable at 11.0, platelet count is normal, venous blood gas shows a pH of 7.02 and a pCO2 of 29. Patient was ordered IV fluids for resuscitation, CT imaging of the head was ordered and patient was pending transport to CT. I was informed by the bedside RN that there appeared to be some ST changes on the monitor. Repeat EKG was obtained at 1025 that showed evidence of [address] elevation in the inferior leads consistent with an acute STEMI. Heart alert was activated. Patient's troponin resulted at greater than 6000. Dr. Dick from interventional cardiology called down to the ER for report, this was given over the phone to the nurse in the catheterization lab. Patient was then evaluated at the bedside by Dr. Dick, her lab work then continued to result and showed evidence of acute DKA. Patient was also noted to have an acute kidney injury. Patient became increasingly encephalopathic and at this time Dr. Dick stated to myself and the hospitalist (Dr. Ray) that he would like to defer cardiac catheterization until she was more stable from the standpoint of her mentation and lab work that did show evidence of DKA. At this time, Dr. Ray was in agreement to admit the patient and stated that he would place the orders for inpatient care including for diagnosis of DKA including insulin drip as the patient was noted to also have hyperkalemia. Electric Shovel Operator consultation was placed by the inpatient service, patient continued to be encephalopathic and became combative with IV Roland catheter placement and therefore decision was made to intubate the patient which was performed by the data management manager here in the ED, please see separate documentation for details of the procedure. Patient was placed for admission in stable condition with critical lab abnormalities for further management of DKA, likely inferior ST elevation myocardial infarction, and altered mental status. Consultants/Discussions held with other healthcare providers: -Interventional cardiology, Dr. Dick -Hospitalist, Dr. Ray * CRITICAL CARE TIME: ( 46 ) minutes -Management independent of any procedures in stabilization of patient with acute DKA , interpretation of diagnostic studies including EKG requiring activation of heart alert for ST elevation WA in the inferior leads, discussion with consulting physicians including interventional cardiology as well as the admitting hospitalist team, interpretation of lab work consistent with DKA with acute kidney injury, arrangement of admission to the hospital for intensive care. Diagnosis: 1. Diabetic ketoacidosis, acute 2. ST elevation myocardial infarction, acute 3. Lactic acidosis, acute 4. Hyperkalemia, acute 5. Acute kidney injury 6. Encephalopathy, acute Disposition: Admission Dion Gutierrez DO Emergency Medicine Past Med/Surg History Problem List (Updated 05/23/24 @ 14:23 by Dion Gutierrez DO) DKA (diabetic ketoacidosis) (Acute) Shock circulatory Atherogenic dyslipidemia Non-ST elevation WA (NSTEMI) Metabolic encephalopathy Influenza A Acute osteomyelitis of toe (Acute) Medical History Acute kidney injury Anemia PAD (peripheral artery disease) Sepsis Osteoporosis Hypertension Neuropathy T2DM (type 2 diabetes mellitus) Social History Smoking Status: Unknown if ever smoked Second Hand Exposure: No; Do You Dip or Chew Tobacco: No; Hx Alcohol Use: No Hx Substance Use: No Preferred Language: Martiniquais Communication Ability: Effective Stator Winder Required: No Beliefs That Will Affect Care: None Current Living Situation: Spouse Current Living Situation Comment: with spouse Feels Safe at Home: Yes Assistive Devices: Glasses Allergies Allergies Allergy/AdvReac Type Severity Reaction Status Date / Time No Known Allergies Allergy Verified 05/23/24 10:03 Home Meds Home Medications Medication Instructions Recorded Confirmed ergocalciferol (vitamin D2) 1,250 50,000 unit PO Q14D 12/14/23 05/23/24 mcg (50,000 unit) capsule insulin glargine 100 unit/mL (3 23 unit subcut UD 09/23/24 03/03/25 mL) subcutaneous pen (Lantus Solostar U-100 Insulin) metoprolol succinate 50 mg 50 mg PO HS 12/14/23 05/23/24 tablet,extended release 24 hr risedronate 150 mg tablet 150 mg PO MONTHLY 12/14/23 05/23/24 tramadol 50 mg tablet 50 mg PO UD PRN Pain 12/14/23 05/23/24 vit A 7,160 unit-vit C 113 mg-vit 1 tab PO QAM 12/14/23 05/23/24 E 100 [id number] tablet amlodipine 5 mg tablet (Norvasc) 5 mg PO UD 05/23/24 05/23/24 empagliflozin 25 mg tablet 25 mg PO UD 05/23/24 05/23/24 (Jardiance) lisinopril 30 mg tablet 30 mg PO UD 05/23/24 05/23/24 Previous Rx's Medication Instructions Recorded insulin aspart U-100 100 unit/mL 1 sliding scale dose SC ACHS #10 mL 12/22/23 subcutaneous solution (Novolog U-100 Insulin aspart) aspirin 81 mg tablet,delayed 81 mg PO DAILY #30 tabs 01/14/24 release (Adult Aspirin Regimen) atorvastatin 20 mg tablet 20 mg PO DAILY #90 tabs 01/14/24 gabapentin 600 mg tablet 600 mg PO BID #180 tabs 02/05/24 Results & Data (ED) Vital Signs Vital Signs - 24 hr 05/23/24 09:27 05/23/24 09:40 05/23/24 09:45 Temperature 35.4 C L Temperature Source Axillary Pulse Rate 63 67 65 Pulse Rate from SpO2 Sensor 64 Pulse Rhythm Regular Respiratory Rate 24 24 26 H Respiratory Effort / Characteristics Non-Labored Respiratory Depth Normal Respiratory Pattern Regular Blood Pressure 106/43 L 106/43 L Blood Pressure Mean 64 64 Pulse Oximetry 96 96 95 Oxygen Delivery Method Room Air Room Air Sepsis Recent Fever Within 48 Hours No Sepsis New/Unexplained Change in Mental Status No Sepsis Action Taken by Nursing Physician Notified 05/23/24 10:03 05/23/24 10:08 05/23/24 10:33 Temperature Temperature Source Pulse Rate 62 67 131 H Pulse Rate from SpO2 Sensor 62 Pulse Rhythm Respiratory Rate 25 H 31 H Respiratory Effort / Characteristics Respiratory Depth Respiratory Pattern Blood Pressure 104/47 L 95/42 L Blood Pressure Mean 66 59 Pulse Oximetry 92 Oxygen Delivery Method Sepsis Recent Fever Within 48 Hours Sepsis New/Unexplained Change in Mental Status Sepsis Action Taken by Nursing 05/23/24 10:42 Temperature Temperature Source Pulse Rate 65 Pulse Rate from SpO2 Sensor Pulse Rhythm Respiratory Rate 24 Respiratory Effort / Characteristics Respiratory Depth Respiratory Pattern Blood Pressure 92/51 L Blood Pressure Mean 64 Pulse Oximetry Oxygen Delivery Method Sepsis Recent Fever Within 48 Hours Sepsis New/Unexplained Change in Mental Status Sepsis Action Taken by Nursing Laboratory Data 05/23/24 09:42 05/23/24 12:40 Lab Results 05/23/24 05/23/24 Range/Units 09:42 09:52 WBC 14.42 H (4.8-10.8) K/ul RBC 4.10 L (4.20-5.40) M/uL Hgb 11.0 L (12.0-16.0) g/dl Hct 32.0 L (37.0-47.0) % MCV 78.0 L (80.0-100.0) fL MCH 26.8 (25.0-34.0) pg MCHC 34.4 (32.0-36.0) g/dL RDW Std Deviation 35.5 L (36.4-46.3) fL RDW Coeff of Nichol 12.5 (11.5-14.5) % Plt Count 238 (130-400) K/uL MPV 12.4 (9.4-12.4) fL Immature Gran % (Auto) 0.5 % Neut % (Auto) 89.2 % Lymph % (Auto) 2.4 % [place] % (Auto) 7.8 % Eos % (Auto) 0.0 % Baso % (Auto) 0.1 % Neut # (Auto) 12.86 H (1.40-6.50) K/uL Lymph # (Auto) 0.35 L (1.20-3.40) K/uL [place] # (Auto) 1.13 H (0.11-0.59) K/uL Eos # (Auto) 0.00 (0.00-0.50) K/uL Baso # (Auto) 0.01 (0.00-0.20) K/uL Immature Gran # (Auto) 0.07 (0.01-0.20) K/uL PT 15.3 H (9.0-12.0) Seconds INR 1.5 H (0.9-1.1) VBG pH 7.02 L (7.36-7.41) VBG pCO2 29 L (38-50) mmHg VBG pO2 53 mmHg VBG HCO3 8 mmol/L VBG O2 Saturation 79.3 % VBG Base Excess -22.4 mEq/L Sodium 108 L* (136-145) mmol/L Potassium 6.4 H* (3.5-5.1) mmol/L Chloride 71 L (98-107) mmol/L Carbon Dioxide 10 L (21-32) mmol/L Anion Gap 27 H (3-11) BUN 168 H (6-23) mg/dl Creatinine 3.87 H (0.6-1.2) mg/dl Est Cr Clr Drug Dosing Not Reportable eGFR 12.48 BUN/Creatinine Ratio 43.4 H (10-20) Glucose 1467 H* (70-99(Fasting)) mg/dl POC Glucose > 600 H* (70-99) mg/dl Lactate 2.4 H* (0.4-2.0) mmol/L Calcium 7.5 L (8.6-10.3) mg/dl Magnesium 3.1 H (1.7-2.4) mg/dl Total Bilirubin 0.3 (0.2-1.0) mg/dl Direct Bilirubin 0.1 (0-0.2) mg/dl AST 82 H (13-39) U/L ALT 35 (7-52) U/L Alkaline Phosphatase 92 (34-104) U/L Troponin I High Sens 6476.9 H* (0-14) pg/ml Total Protein 5.3 L (6.0-8.3) gm/dl Albumin 3.2 L (3.4-5.0) gm/dl Procalcitonin 1.66 H (0-0.5) ng/ml Nasal Influ A H1 2008 PCR DETECTED A (NotDetected) Adenovirus (PCR) Not Detected (NotDetected) B. pertussis DNA (PCR) Not Detected (NotDetected) B.parapertussis DNA PCR Not Detected (NotDetected) C. pneumoniae DNA (PCR) Not Detected (NotDetected) Coronavirus OC43 (PCR) Not Detected (NotDetected) Coronavirus HKU1 (PCR) Not Detected (NotDetected) Coronavirus 229E (PCR) Not Detected (NotDetected) SARS-CoV-2 (PCR) Not Detected (NotDetected) Coronavirus NL63 (PCR) Not Detected (NotDetected) Human Metapneumovir PCR Not Detected (NotDetected) Influenza Type B (PCR) Not Detected (NotDetected) M. pneumoniae (PCR) Not Detected (NotDetected) Parainfluenza 1 (PCR) Not Detected (NotDetected) Parainfluenza 2 (PCR) Not Detected (NotDetected) Parainfluenza 3 (PCR) Not Detected (NotDetected) Parainfluenza 4 (PCR) Not Detected (NotDetected) RSV (PCR) Not Detected (NotDetected) Entero/Rhino (PCR) Not Detected (NotDetected) Administered Medications Insulin Human Regular 250 (units/ Sodium Chloride) 250 mls @ 9.1 mls/hr IV .Q24H [facility]; Protocol Stop: 06/22/24 10:59 Last Admin: 05/23/24 11:19 Dose: 9.1 units/hr, 9.1 mls/hr Documented By: LADI Co-signed By: GILBERTO Midazolam HCl (Versed) 125 mg in 250 mls @ 8 mls/hr IV .[id number] [facility]; Protocol Stop: 06/22/24 12:14 Last Admin: 05/23/24 13:36 Dose: 1 mg/hr, 2 mls/hr Documented By: NANI Co-signed By: AAF Discontinued Medications Aspirin (Aspirin Chew 324 Mg) Confirm Administered Dose 324 mg .ROUTE .STK-MED ONE Stop: 05/23/24 10:30 Last Admin: 05/23/24 10:31 Dose: 324 mg Documented By: KAMRON Aspirin (Aspirin Chew 324 Mg) 324 mg PO NOW STA Stop: 05/23/24 10:34 Last Admin: 05/23/24 10:54 Dose: Not Given Documented By: LADI Fentanyl Citrate (Fentanyl Citrate Pf 100 Mcg/2 Ml Vial) Confirm Administered Dose 100 mcg .ROUTE .STK-MED ONE Stop: 05/23/24 10:44 Last Admin: 05/23/24 13:30 Dose: Not Given Documented By: NANI Heparin Sodium (Porcine) (Heparin (Porcine) 1000 Unit/Ml 10 Ml (Private Investigator Surveillance Use Only)) Confirm Administered Dose 10,000 units .ROUTE .STK-MED ONE Stop: 05/23/24 10:44 Last Admin: 05/23/24 13:31 Dose: 5,000 units Documented By: NANI Heparin Sodium/Sodium Chloride (Heparin In Nss Infusion 1000 Unit/500 Ml (2 U/Ml) Bag) Confirm Administered Dose 3,000 units IV .STK-MED ONE Stop: 05/23/24 10:44 Last Admin: 05/23/24 13:31 Dose: 3,000 units Documented By: AISHA Sodium Chloride (Nss) 1,000 mls @ 999 mls/hr IV .Q1H1M JUSTA Stop: 05/23/24 10:45 Last Admin: 05/23/24 10:16 Dose: 999 mls/hr Documented By: LADI Sodium Chloride (Nss) 1,000 mls @ 999 mls/hr IV .Q1H1M ONE Stop: 05/23/24 11:25 Last Admin: 05/23/24 10:55 Dose: 999 mls/hr Documented By: LADI Insulin Human Regular (Novolin-R Bolus From Bag) 9 units IV ONE ONE Stop: 05/23/24 11:01 Last Admin: 05/23/24 11:19 Dose: 9 units Documented By: LADI Co-signed By: GILBERTO Ioversol (Optiray 350) Confirm Administered Dose 1 ml .ROUTE .STK-MED ONE Stop: 05/23/24 10:45 Last Admin: 05/23/24 13:34 Dose: 130 ml Documented By: AISHA Midazolam HCl (Midazolam Hcl 1 Mg/Ml 2ml Vial) Confirm Administered Dose 2 mg .ROUTE .STK-MED ONE Stop: 05/23/24 10:44 Last Admin: 05/23/24 13:32 Dose: Not Given Documented By: NANI Morphine Sulfate (Morphine Sulfate 4 Mg/Ml 1 Ml Carp\\Vial) Confirm Administered Dose 4 mg .ROUTE .STK-MED ONE Stop: 05/23/24 10:30 Last Admin: 05/23/24 10:31 Dose: 4 mg Documented By: KAMRON Nicardipine HCl (Nicardipine 2,000 Mcg/20 Ml Syr) Confirm Administered Dose 2,000 mcg .ROUTE .STK-MED ONE Stop: 05/23/24 10:44 Last Admin: 05/23/24 13:32 Dose: 2,000 mcg Documented By: AISHA Nitroglycerin/Dextrose (Nitroglycerin/D5w 100mcg/Ml 20ml Syr) Confirm Administered Dose 2,000 mcg .ROUTE .STK-MED ONE Stop: 05/23/24 10:45 Last Admin: 05/23/24 13:35 Dose: 2,000 mcg Documented By: AISHA Ondansetron HCl (Ondansetron Inj 2 Mg/Ml 2 Ml Vial) Confirm Administered Dose 4 mg .ROUTE .STK-MED ONE Stop: 05/23/24 10:30 Last Admin: 05/23/24 10:31 Dose: 4 mg Documented By: KAMRON Sodium Bicarbonate (Sodium Bicarb 8.4% Inj 50 Meq/50 Ml Syr) 50 meq IV NOW STA Stop: 05/23/24 10:34 Last Admin: 05/23/24 11:00 Dose: 50 meq Documented By: LADI Ticagrelor (Ticagrelor 90 Mg Tab) Confirm Administered Dose 90 mg .ROUTE .STK- MED ONE Stop: 05/23/24 10:44 Last Admin: 05/23/24 13:34 Dose: Not Given Documented By: NANI Ticagrelor (Ticagrelor 90 Mg Tab) Confirm Administered Dose 90 mg .ROUTE .STK- MED ONE Stop: 05/23/24 10:44 Last Admin: 05/23/24 13:34 Dose: Not Given Documented By: NANI Imaging Data Radiologist's Impression: Chest X-Ray 05/23/24 09:40 XR chest 1V portable CLINICAL HISTORY: Sepsis COMPARISON STUDY: 12/14/2023 FINDINGS: There is stable mild cardiomegaly without pulmonary vascular congestion. Inspiration is shallow. There is interval mild stranding opacity at the left base. No other consolidation or pleural effusion. No pneumothorax. IMPRESSION: Shallow inspiration with atelectasis versus early pneumonia left lung base. ACT 112: Negative or not required by law. Electronically signed by: Francisco Thomas M.D. 05/23/2024 10:15 AM Discharge Plan Visit Data Chief Complaint: Altered Mental Status ED Provider: Dion Gutierrez Discharge Problem: DKA (diabetic ketoacidosis) Discharge Instructions Interventions: ED Discharge Assessment Last Done: 05/23/24 12:00
[2024-05-23 10:12] LABS: Base Excess VBG -22.4 mEq/L; HCO3 VBG 8 mmol/L; Oxygen Saturation VBG 79.3 %; PCO2 VBG 29 mmHg (38-50); PO2 VBG 53 mmHg; pH VBG 7.02 (7.36-7.41)
[2024-05-23 10:13] LABS: Basophils # (auto) 0.01 K/uL (0.00-0.20); Basophils % (auto) 0.1 %; Immature Granulocytes # (auto) 0.07 K/uL (0.01-0.20); Immature Granulocytes % (auto) 0.5 %; Lymphocytes # (auto) 0.35 K/uL (1.20-3.40); Lymphocytes % (auto) 2.4 %; Mean Platelet Volume 12.4 fL (9.4-12.4); Monocytes # (auto) 1.13 K/uL (0.11-0.59); Monocytes % (auto) 7.8 %; Neutrophils # (auto) 12.86 K/uL (1.40-6.50); Neutrophils % (auto) 89.2 %; Platelet Count 238 K/uL (130-400); White Blood Count 14.42 K/ul (4.8-10.8)
[2024-05-23] MEDS: SODIUM CHLORIDE 0.9% 1,000 ML IV SCH (10:16)
--- NOTE | 2024-05-23 10:16 | XRay Report ---
XR chest 1V portable CLINICAL HISTORY: Sepsis COMPARISON STUDY: 12/14/2023 FINDINGS: There is stable mild cardiomegaly without pulmonary vascular congestion. Inspiration is sha llow. There is interval mild stranding opacity at the left base. No other consolidation or pleural ef fusion. No pneumothorax. IMPRESSION: Shallow inspiration with atelectasis versus early pneumonia left lung base. ACT 112: Negative or not required by law. Electronically signed by: Francisco Thomas M.D. 05/23/2024 10:15 AM
[2024-05-23] MEDS: ASPIRIN CHEW 324 MG ONE (10:31)
[2024-05-23] MEDS: MoRPHine SULFATE 4 MG/ML 1 ML CARP\\VIAL ONE (10:31)
[2024-05-23] MEDS: ONDANSETRON INJ 2 MG/ML 2 ML VIAL ONE (10:31)
[2024-05-23 10:45] LABS: Alanine Aminotransferase 35 U/L (7-52); Albumin Level 3.2 gm/dl (3.4-5.0); Alkaline Phosphatase 92 U/L (34-104); Anion Gap 27 (3-11); Aspartate Aminotransferase 82 U/L (13-39); Bilirubin Direct 0.1 mg/dl (0-0.2); Bilirubin,Total 0.3 mg/dl (0.2-1.0); Calcium 7.5 mg/dl (8.6-10.3); Carbon Dioxide 10 mmol/L (21-32); Chloride 71 mmol/L (98-107); INR 1.5 (0.9-1.1); Magnesium 3.1 mg/dl (1.7-2.4); Potassium 6.4 mmol/L (3.5-5.1); Prothrombin Time 15.3 Seconds (9.0-12.0); Sodium 108 mmol/L (136-145); Total Protein 5.3 gm/dl (6.0-8.3); Troponin I High Sensitivity 6476.9 pg/ml (0-14)
[2024-05-23] MEDS ORDERED: STAT IV Infusion **Titration per Protocol STA ×3 (10:54→12:09)
[2024-05-23] MEDS ORDERED: PHARMACY GLYCEMIC MGMT CONSULT PRN (10:54)
[2024-05-23] MEDS: ASPIRIN CHEW 324 MG PO STA (10:54)
[2024-05-23] MEDS: SODIUM CHLORIDE 0.9% 1,000 ML IV ONE (10:55)
[2024-05-23 11:00] LABS: BUN Creatinine Ratio 43.4 (10-20); Blood Urea Nitrogen 168 mg/dl (6-23); Glucose 1467 mg/dl (70-99(Fasting))
[2024-05-23] MEDS: SODIUM BICARB 8.4% INJ 50 MEQ/50 ML SYR IV STA (11:00)
[2024-05-23] MEDS: NovoLIN-R BOLUS FROM BAG IV ONE (11:19)
[2024-05-23] MEDS: INSULIN REGULAR 250 UNITS in SODIUM CHLORIDE 0.9% 247.5 ML IV SCH (11:19)
[2024-05-23] MEDS ORDERED: ICU Protocol for HYPERglycemia SCH (11:30)
[2024-05-23 11:33] LABS: Mean Corpuscular Hemoglobin 26.8 pg (25.0-34.0); Mean Corpuscular Hgb Conc 34.4 g/dL (32.0-36.0); RDW Coefficient of Variation 12.5 % (11.5-14.5); RDW Standard Deviation 35.5 fL (36.4-46.3)
[2024-05-23 11:49] LABS: Adenovirus PCR Not Detected (NotDetected); Bordetella parapertussis PCR Not Detected (NotDetected); Bordetella pertussis PCR Not Detected (NotDetected); Chlamydia pneumoniae PCR Not Detected (NotDetected); Coronavirus 229E PCR Not Detected (NotDetected); Coronavirus CoV-2 (COVID19)PCR Not Detected (NotDetected); Coronavirus HKU1 PCR Not Detected (NotDetected); Coronavirus NL63 PCR Not Detected (NotDetected); Coronavirus OC43PCR Not Detected (NotDetected); Human Metapneumovirus PCR Not Detected (NotDetected); Influenza A (H1 2009) PCR DETECTED (NotDetected); Influenza B PCR Not Detected (NotDetected); Mycoplasma pneumoniae PCR Not Detected (NotDetected); Parainfluenza Virus 1 PCR Not Detected (NotDetected); Parainfluenza Virus 2 PCR Not Detected (NotDetected); Parainfluenza Virus 3 PCR Not Detected (NotDetected); Parainfluenza Virus 4 PCR Not Detected (NotDetected); Respiratory Syncytial VirusPCR Not Detected (NotDetected); Rhinovirus/Enterovirus PCR Not Detected (NotDetected)
--- NOTE | 2024-05-23 11:57 | Pre Anesthesia Assessment ---
Date of Service May 23, 2024 Pre Sedation Assessment Vital Signs Temp Pulse Resp BP Pulse Ox O2 Del Method FiO2 05/23/24 11:15 104 H 36 H 100 100 05/23/24 10:42 65 24 92/51 L 05/23/24 10:33 131 H 31 H 95/42 L 05/23/24 10:08 67 05/23/24 10:03 62 25 H 104/47 L 92 05/23/24 09:45 65 26 H 106/43 L 95 05/23/24 09:40 67 24 96 Room Air 05/23/24 09:27 35.4 C L 63 24 106/43 L 96 Room Air Cardiovascular Additional Comments: Bradycardic, hypotensive Respiratory Additional Comments: Intubated and sedated (see pulmonary critical care note) Pre-Sedation Airway Assessment Smoking Status: Unknown if ever smoked ASA 4 Notes The planned sedation has been discussed with the patient. Informed Consent was obtained. I have identified the patient, determined the appropriateness of sedation and have assessed the patient immediately prior to the procedure. All medicine(s) and interventions are by my order.
--- NOTE | 2024-05-23 11:59 | History & Physical Report ---
Date of Service May 23, 2024 Assessment & Plan (1) Metabolic encephalopathy: (2) Influenza A: (3) Acute kidney injury: (4) Hypertension: (5) PAD (peripheral artery disease): Plan Ms. Hay is a 64F with PMHx of Uncontrolled T2DM on Insulin with Neuropathy, PAD, and HTN who presents to the ED for altered mental status. HPI noted for cough and congestion since found to be Flu A positive in ER. It is reported she has not taken insulin since and became delirious on Thursday. She is noted to have a glucose of 1439 and multiple electrolyte abnormalities. Patient went to [facility] due to elevated troponins and inferior wall EKG changes. No PCI indicated and findings suggesting of Type II NSTEMI #Metabolic Encephalopathy 2/2 Multifactorial -- Diabetic Ketoacidosis/Influenza A/Dehydration -Patient decompensated while in the ED with hypotension and bradycardia. Ultimately required intubation and the initiation of pressor support while correcting acidosis. 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 Dcik - no PCI indicated -Hold home ASA and Atorvastatin while intubated; non-oral options to be determined upon further recommendations -Echo read pending -Cardiology following - recommends high dose statin moving forward #Acute Kidney Injury/Hyponatremia/Hyperkalemia: -Multifactorial - significant dehydration 2/2 hyperglycemia and influenza A and possible ATN; baseline 0.7 -Received initial fluid bolus; will require routine labs for monitoring -Nephrology consulted #HTN: -Acutely ill with hypotension and requiring pressor support -Hold home Norvasc and Toprol XL while intubated and acutely ill; per last D/C she was D/Cd from Lisinopril given previous JOLENE 2/2 ATN this will need verified if remains off #History of OM R Foot with Previous Amputations (Dec-Feb 2024): -Does have blackened dry, nondraining area to R plantar aspect near big toe -Placed on Meropenem currently #DVT Prophylaxis: -Heparin SC #Disposition: -ICU History of Present Illness Chief Complaint: Altered Mental Status Primary Care Provider: NO PCP Ms. Hay is a 64F with PMHx of Uncontrolled T2DM on Insulin with Neuropathy, PAD, and HTN who presents to the ED for altered mental status. H&P largely obtained from notes and staff as patient was decompensating on hospitalist arrival and undergoing intubation. Patient's significant other sustained a syncopal episode and was being evaluated in another room. EMS report states cough and congestion since . Patient was delirious on Thursday and due to ongoing delirium EMS was called. It is noted last insulin dose was . Upon arrival to the ED, patient was alert and verbal but not fully oriented. Upon arrival to bedside, nursing noted she developed increased agitation and became more altered. She was ultimately intubated and started on resuscitative measures to correct the acidosis. Arterial and central line placed at bedside. Plan to go to [facility] pending stability. Allergies Allergy/AdvReac Type Severity Reaction Status Date / Time No Known Allergies Allergy Verified 05/23/24 10:03 Home Medications Medication Instructions Recorded Confirmed Type ergocalciferol (vitamin D2) 1,250 50,000 unit PO Q14D 12/14/23 05/23/24 History mcg (50,000 unit) capsule insulin glargine 100 unit/mL (3 23 unit subcut UD 12/14/23 05/23/24 History mL) subcutaneous pen (Lantus Solostar U-100 Insulin) metoprolol succinate 50 mg 50 mg PO HS 12/14/23 05/23/24 History tablet,extended release 24 hr risedronate 150 mg tablet 150 mg PO MONTHLY 12/14/23 05/23/24 History tramadol 50 mg tablet 50 mg PO UD PRN Pain 12/14/23 05/23/24 History vit A 7,160 unit-vit C 113 mg-vit 1 tab PO QAM 12/14/23 05/23/24 History E 100 swqj-[id number]-[id number] tablet insulin aspart U-100 100 unit/mL 1 sliding scale dose SC ACHS #10 mL 12/22/23 05/23/24 Rx subcutaneous solution (Novolog U-100 Insulin aspart) aspirin 81 mg tablet,delayed 81 mg PO DAILY #30 tabs 01/14/24 05/23/24 Rx release (Adult Aspirin Regimen) atorvastatin 20 mg tablet 20 mg PO DAILY #90 tabs 01/14/24 05/23/24 Rx gabapentin 600 mg tablet 600 mg PO BID #180 tabs 02/05/24 05/23/24 Rx amlodipine 5 mg tablet (Norvasc) 5 mg PO UD 05/23/24 05/23/24 History empagliflozin 25 mg tablet 25 mg PO UD 05/23/24 05/23/24 History (Jardiance) lisinopril 30 mg tablet 30 mg PO UD 05/23/24 05/23/24 History Past Med/Surg History Problem List DKA (diabetic ketoacidosis) (Acute) Shock circulatory Atherogenic dyslipidemia Non-ST elevation VT (NSTEMI) Metabolic encephalopathy Influenza A Acute osteomyelitis of toe (Acute) Medical History Acute kidney injury Anemia PAD (peripheral artery disease) Sepsis Osteoporosis Hypertension Neuropathy T2DM (type 2 diabetes mellitus) Social History Smoking Status: Unknown if ever smoked Second Hand Exposure: No; Do You Dip or Chew Tobacco: No; Hx Alcohol Use: No Hx Substance Use: No Preferred Language: Bahraini Communication Ability: Effective Communication Ability Comment: pt sedated on ventilator Machine Packager Required: No Beliefs That Will Affect Care: None Current Living Situation: Spouse Current Living Situation Comment: with spouse Feels Safe at Home: Yes Assistive Devices: Glasses Review of Systems Review of Systems: REVIEW OF SYSTEMS: Unable to be perform due to intubation at time of assessment. Physical Exam Physical Exam: PHYSICAL EXAM General Appearance: Acutely ill; Intubated HEENT: Head is normocephalic/atraumatic Neck: Supple; Trachea midline Heart: RRR with no M/G/R Lungs: CTA in all lung childress bilaterally but diminished at bases; Respirations unlabored - intubated Abdomen: Soft, ; Positive BS x 4 quadrants Extremities: Neg peripheral edema Neurological: Intubated and sedated Skin: R foot dry/blackened closed wound on plantar aspect near big toe; No drainage or surround erythema; Bilateral erythma to groin folds - R>L Results & Data Results & Data Vital Signs (Past 12 Hours) Vital Signs Temp Pulse Resp BP Pulse Ox O2 Del Method FiO2 05/23/24 11:15 104 H 36 H 100 100 05/23/24 10:42 65 24 92/51 L 05/23/24 10:33 131 H 31 H 95/42 L 05/23/24 10:08 67 05/23/24 10:03 62 25 H 104/47 L 92 05/23/24 09:45 65 26 H 106/43 L 95 05/23/24 09:40 67 24 96 Room Air 05/23/24 09:27 35.4 C L 63 24 106/43 L 96 Room Air Laboratory Results Laboratory Results - last 24 hr 05/23/24 05/23/24 05/23/24 09:42 09:52 11:03 WBC 14.42 H RBC 4.10 L Hgb 11.0 L Hct 32.0 L MCV 78.0 L MCH 26.8 MCHC 34.4 RDW Std Deviation 35.5 L RDW Coeff of Nichol 12.5 Plt Count 238 MPV 12.4 Immature Gran % (Auto) 0.5 Neut % (Auto) 89.2 Lymph % (Auto) 2.4 Dubois % (Auto) 7.8 Eos % (Auto) 0.0 Baso % (Auto) 0.1 Neut # (Auto) 12.86 H Lymph # (Auto) 0.35 L Dubois # (Auto) 1.13 H Eos # (Auto) 0.00 Baso # (Auto) 0.01 Immature Gran # (Auto) 0.07 PT 15.3 H INR 1.5 H VBG pH 7.02 L 7.02 L VBG pCO2 29 L VBG pO2 53 VBG HCO3 8 VBG O2 Saturation 79.3 VBG Base Excess -22.4 Sodium 108 L* 114 L* Potassium 6.4 H* 6.3 H* Chloride 71 L 76 L Carbon Dioxide 10 L 13 L Anion Gap 27 H 25 H BUN 168 H 167 H Creatinine 3.87 H 3.76 H Est Cr Clr Drug Dosing Not Reportable 16.4 eGFR 12.48 12.92 BUN/Creatinine Ratio 43.4 H 44.4 H Glucose 1467 H* 1439 H* POC Glucose > 600 H* Lactate 2.4 H* Calcium 7.5 L 7.0 L Phosphorus 10.2 H Magnesium 3.1 H 3.1 H Total Bilirubin 0.3 Direct Bilirubin 0.1 AST 82 H ALT 35 Alkaline Phosphatase 92 Troponin I High Sens 6476.9 H* Total Protein 5.3 L Albumin 3.2 L Procalcitonin 1.66 H Nasal Influ A H1 2008 PCR DETECTED A Adenovirus (PCR) Not Detected B. pertussis DNA (PCR) Not Detected B.parapertussis DNA PCR Not Detected C. pneumoniae DNA (PCR) Not Detected Coronavirus OC43 (PCR) Not Detected Coronavirus HKU1 (PCR) Not Detected Coronavirus 229E (PCR) Not Detected SARS-CoV-2 (PCR) Not Detected Coronavirus NL63 (PCR) Not Detected Human Metapneumovir PCR Not Detected Influenza Type B (PCR) Not Detected M. pneumoniae (PCR) Not Detected Parainfluenza 1 (PCR) Not Detected Parainfluenza 2 (PCR) Not Detected Parainfluenza 3 (PCR) Not Detected Parainfluenza 4 (PCR) Not Detected RSV (PCR) Not Detected Entero/Rhino (PCR) Not Detected Diagnostic Findings Chest X-Ray 05/23/24 09:40 XR chest 1V portable CLINICAL HISTORY: Sepsis COMPARISON STUDY: 12/14/2023 FINDINGS: There is stable mild cardiomegaly without pulmonary vascular congestion. Inspiration is shallow. There is interval mild stranding opacity at the left base. No other consolidation or pleural effusion. No pneumothorax. IMPRESSION: Shallow inspiration with atelectasis versus early pneumonia left lung base. ACT 112: Negative or not required by law. Electronically signed by: Francisco Thomas M.D. 05/23/2024 10:15 AM Code Status & VTE Plan Code Status Full Code VTE Prophylaxis Plan VTE Prophylaxis will be ordered: Yes Supervising Physician Co-Signing Physician Notes Patient was seen and examined independently I discussed the case with Sofía DHILLON I reviewed pertinent past medical social family history and also the plan of care and agree with the plan of care. Patient has been ill at home for approximately 5 days not taking any insulin or eating very much food Patient was initially set to be a heart alert. It was found that she was in significant DKA and she was physiologically unstable. Patient then became tenet lost consciousness and was emergently intubated in the emergency department. Patient was volume resuscitated with copious amounts of crystalloid solution and insulin drip was begun for DKA. Was eventually taken to [facility] where she had nonocclusive coronary disease. Patient was profoundly acidemic. Patient has only other source of concern would be a dark eschar on the bottom of right foot he is being covered for infectious etiologies Initially the patient was awake and alert she had some mild abdominal pain her cardiac exam was distant but regular her lungs were clear abdomen was normal active bowel sounds tenderness in the right upper quadrant no rebound and minor guarding. Extremities she was missing her right middle toe and she had a dark eschar approximately the size of a $0.50 piece on the plantar aspect of her right foot. Due to respiratory failure profound acidemia DKA and concern for STEMI the patient was transferred to the ICU on the ventilator sedated and supported with pressors. Blood cultures were obtained and she was brought started on broad- spectrum antibiotics patient was markedly hyponatremic although even with correction she remained with low sodium levels. Any exceptions will be noted below PG Care Time/CCT Total # of Minutes Spent Total Time Spent with Patient: Total time spent is greater than 50% in coordination of care (as documented) at patient's floor/unit and/or counseling patient: Spent a total of 45 minutes critical care time. Time includes chart review, patient assessment, intervention, and plan development/inplementation Coding Level of Care Code 68300 INT INP/OBS CARE 3/75MIN Diagnoses Metabolic encephalopathy G93.41 Influenza A J10.1 Acute kidney injury N17.9 Primary hypertension I10 Hypertension type: primary hypertension PAD (peripheral artery disease) I73.9 (4) Hypertension Hypertension type: primary hypertension Qualified Code(s): I10 - Essential (primary) hypertension
[2024-05-23 12:01] LABS: BUN Creatinine Ratio 44.4 (10-20); Creatinine Clr Calc Pharmacy 16.4 ml/min; Magnesium 3.1 mg/dl (1.7-2.4); Phosphorus 10.2 mg/dl (2.5-4.9); Potassium 6.3 mmol/L (3.5-5.1)
[2024-05-23] MEDS ORDERED: fentaNYL BOLUS from BAG IV PRN (12:07)
--- NOTE | 2024-05-23 12:12 | Procedure Note ---
Procedure Note Date of Service May 23, 2024 INTUBATION PROCEDURE NOTE: Provider: Allan Zamarripa MD A time-out was completed verifying correct patient, procedure, site, positioning. Patient was evaluated and required intubation for hemodynamic instability, respiratory failure, and obtunded state. Sedative agent used: None Paralysis agent used: None Emergent consent was implied given patients rapidly declining clinical status and need for airway protection. [ The patient was prepared in the appropriate fashion. The patient was easily ventilated using [id number] to achieve adequate oxygenation. A 7.5 Norwegian endotracheal tube was placed under video larynx scopic assistance to 22 cm at the lip. The stylette was removed and balloon was inflated with 10mL of air. Appropriate Colorimetric change was appreciated. Bilateral breath sounds were heard without air sounds in the abdomen[place] [facility] [place] Codes (Charges) Resuscitation Resuscitation: 31612 Endotracheal Intubation, emergency Coding CPT Codes Resuscitation - Resuscitation: 53463 Endotracheal Intubation, emergency ([id number]) Additional Codes Date of Service (PG.SURGERY)
--- NOTE | 2024-05-23 12:13 | Procedure Note ---
Procedure Note Date of Service May 23, 2024 ARTERIAL LINE PROCEDURE NOTE: Procedure: Arterial Line Placement Provider: Allan Zamarripa MD Indication: Monitoring on Pressors Anesthesia: None Procedure was emergent. Patient is intubated and unresponsive. No family immediately available Left groin was chosen as the patient is proceeding to the cardiac [facility] in an effort to preserve the right groin and right wrist. Ultrasound was performed which revealed a pulsatile femoral artery. Skin was prepped and draped using chlorhexidine. A sterile field was established. Using aseptic technique, the femoral artery was accessed using an 18-gauge needle. Pulsatile blood flow was obtained on removal from the syringe. A wire was passed through the syringe into the artery and the needle removed leaving the wire in place. A skin abril was made. A 20-gauge 12 cm catheter was then threaded over the wire into the artery. The wire was removed. Pulsatile blood flow was again confirmed. The catheter was attached to the monitoring system and an arterial waveform obtained. Catheter was sutured in place using silk sutures and a sterile dressing applied. Blood Loss: Minimal Complications: None [facility] [place] Codes (Charges) Tubes, Drains, and Vasc Access Procedure 1: Tubes, Drains, and Vasc Access: [id number] Arterial Cath/Cannulation Sampling/Monitoring/Transfusion Procedure 2: Tubes, Drains, and Vasc Access: [id number] Ultrasound Guidance For Vascular Coding CPT Codes Tubes, Drains, and Vasc Access - Tubes, Drains, and Vasc Access: [id number] Arterial Cath/Cannulation Sampling/Monitoring/Transfusion ([id number]) Tubes, Drains, and Vasc Access - Tubes, Drains, and Vasc Access: [id number] Ultrasound Guidance For Vascular ([id number]) Additional Codes Date of Service (PG.SURGERY)
[2024-05-23] MEDS ORDERED: NOREPINEPHRINE/D5W 4 MG/250 ML PLCT IV SCH (12:15)
--- NOTE | 2024-05-23 12:19 | Procedure Note ---
Procedure Note Date of Service May 23, 2024 CENTRAL LINE PROCEDURE NOTE: Procedure: Central Line Placement Provider: Allan Zamarripa MD Indication: Central Drug Administration, Poor Venous Access, Multiple Lab Draws Necessary, etc. Anesthesia: None Site: Left femoral Procedure was emergent. Patient intubated and sedated and unable to provide consent. No family immediately available. A time-out was completed verifying correct patient, procedure, site, positioning, and implants(s) or special equipment if applicable. Left groin was cleaned using chlorhexidine and a sterile field established. Ultrasound was used to verify position of the femoral vein. Under direct ultrasound visualization, the left femoral vein was accessed using an 18-gauge needle. The syringe was removed leaving the needle in place. A wire was passed through the needle into the vein. A small skin abril was made with the scalpel and the dilator was passed over the wire into the vein without difficulty. TThe dilator was exchanged for the triple lumen catheter which was advanced into the vessel without resistance. The guide wire was removed intact from the catheter without issue. Claves were placed on each catheter tip with confirmation of good blood flow from each lumen. Each port was easily flushed with sterile saline. The catheter was placed at the hub and sutured in place. BioPatch was applied to the catheter and a sterile Tegaderm dressing was applied over the catheter with careful attention to sterility. Patient tolerated procedure well. No immediate complications were met. Estimated blood loss: 10 mL [facility] [place] Codes (Charges) Tubes, Drains, and Vasc Access Procedure 1: Tubes, Drains, and Vasc Access: [id number] Place catheter in vein superior or inferior vena cava Procedure 2: Tubes, Drains, and Vasc Access: [id number] Ultrasound Guidance For Vascular Coding CPT Codes Tubes, Drains, and Vasc Access - Tubes, Drains, and Vasc Access: [id number] Place catheter in vein superior or inferior vena cava ([id number]) Tubes, Drains, and Vasc Access - Tubes, Drains, and Vasc Access: [id number] Ultrasound Guidance For Vascular ([id number]) Additional Codes Date of Service (PG.SURGERY)
--- NOTE | 2024-05-23 12:27 | Critical Care Consultation ---
Date of Consultation May 23, 2024 Assessment & Plan (1) Metabolic encephalopathy: (2) Acute kidney injury: (3) Sepsis: Plan Impression: 64-year-old female with diabetes and peripheral vascular disease with history of recent osteomyelitis presents now with severe DKA, acute renal failure, and shock with elevated troponin and ST elevations on EKG. Recommendation: 1. Neurologic: Encephalopathy likely metabolic in nature. Continue to follow at this point in time. Continue fentanyl and Versed infusions while intubated given her hemodynamic instability. Try and avoid medications associated with delirium. May need to restart her gabapentin at a lower dose. Of note the patient's obtunded mental status improved with correction of her pH and electrolyte abnormalities to where she was moving all 4 extremities but certainly not back to normal 2. Cardiovascular: EKG with ST elevation. Await results of cardiac cath. Formal echocardiogram. Trend enzymes. Defer heparin to cardiology as well as antiplatelet agents. Suspect the patient was significantly volume down on presentation and aggressive fluid resuscitation was conducted. Lactate elevated on presentation. Will trend. Significant peripheral vascular disease so blood pressure cuffs may not be reliable 3. Pulmonary: Intubated due to to hemodynamic instability. Chest x-ray demonstrates low lung volumes. Will follow-up chest x-ray on arrival to the ICU. Will wean ventilator once hemodynamically stable and sensorium has cleared. Lung protective ventilatory strategy employed 4. Renal: Acute renal failure: Suspect ATN. Associated with hyperkalemia. Will consult nephrology given IV contrast load administered today. She had seen Dr. Ramos in the past. Serial electrolytes. Significant hyponatremia. Unclear if renal replacement might be required. 5. GI: No current issues. Will initiate trophic enteral tube feeding once hemodynamics allow. PPI given hemodynamic instability. 6. Endocrine: Will initiate insulin infusion and continue until gap is closed at which point time she will be transition to subcutaneous regimen of insulin. Potassium may drop precipitously and might need to be replaced aggressively. Phosphate should also drop with insulin infusion. 7. ID: Patient with recent osteomyelitis. Blood cultures today no growth to date. Prior cultures were polymicrobial from the necrotic toe. Will place on meropenem for now. Check respiratory cultures. May need imaging the foot 8. Heme-onc: No current issues. DVT prophylaxis with heparin Patient is critically ill at this point time with multiorgan system dysfunction. Significant possibility of clinical decline and/or . A total of 78 minutes in critical care time was spent in evaluation management coordination of care for this patient exclusive of procedures. History of Present Illness History of Present Illness Asked by hospitalist to assist in evaluation management this patient with severe DKA, acute renal failure, acute myocardial infarction, and encephalopathy. History is obtained from discussion with the hospitalist as well as review the electronic medical record. No significant history is available from the patient due to obtunded mental status. Patient is a 64-year-old female who is noncompliant with medical care. We have minimal records in our system as her primary care provider is outside of our system. According to the ER notes she was brought to the emergency room due to altered mental status. She been complaining of feeling ill. Patient was found to be in acute renal failure in the emergency room with markedly elevated troponin. She denies chest pain. She is found to be in severe DKA and apparently there was some question about compliance with her diabetic regimen in the outpatient setting. She was to go to the [facility] however she became agitated intermittently with periods of obtundation. I was called to the emergency room to evaluate her prior to going to the [facility]. On my evaluation the patient had a pulse and a blood pressure however her pulse was decreasing and she was not arousable to verbal or tactile stimulus. Decision was made to proceed with intubation. This was accomplished without any medication. See separate procedure notes. Resuscitation continued in the emergency room with administration of 4 L of additional crystalloid given her DKA as well as IV calcium and bicarb given her hyperkalemia. Arterial lines and central lines were placed in the emergency room and the patient was accompanied to the [facility]. We did initiate her briefly on norepinephrine which resulted in atrial fibrillation with rapid ventricular response. She was transitioned off the norepinephrine to phenylephrine. Please see separate notes from her cardiac catheterization procedure. Allergies Allergy/AdvReac Type Severity Reaction Status Date / Time No Known Allergies Allergy Verified 05/23/24 10:03 Home Medications Medication Instructions Recorded Confirmed Type ergocalciferol (vitamin D2) 1,250 50,000 unit PO Q14D 12/14/23 05/23/24 History mcg (50,000 unit) capsule insulin glargine 100 unit/mL (3 23 unit subcut UD 12/14/23 05/23/24 History mL) subcutaneous pen (Lantus Solostar U-100 Insulin) metoprolol succinate 50 mg 50 mg PO HS 12/14/23 05/23/24 History tablet,extended release 24 hr risedronate 150 mg tablet 150 mg PO MONTHLY 12/14/23 05/23/24 History tramadol 50 mg tablet 50 mg PO UD PRN Pain 12/14/23 05/23/24 History vit A 7,160 unit-vit C 113 mg-vit 1 tab PO QAM 12/14/23 05/23/24 History E 100 vfju-amam-chbzbd tablet insulin aspart U-100 100 unit/mL 1 sliding scale dose SC ACHS #10 mL 12/22/23 05/23/24 Rx subcutaneous solution (Novolog U-100 Insulin aspart) aspirin 81 mg tablet,delayed 81 mg PO DAILY #30 tabs 01/14/24 05/23/24 Rx release (Adult Aspirin Regimen) atorvastatin 20 mg tablet 20 mg PO DAILY #90 tabs 01/14/24 05/23/24 Rx gabapentin 600 mg tablet 600 mg PO BID #180 tabs 02/05/24 05/23/24 Rx amlodipine 5 mg tablet (Norvasc) 5 mg PO UD 05/23/24 05/23/24 History empagliflozin 25 mg tablet 25 mg PO UD 05/23/24 05/23/24 History (Jardiance) lisinopril 30 mg tablet 30 mg PO UD 05/23/24 05/23/24 History Patient History Medical History Acute kidney injury Anemia PAD (peripheral artery disease) Sepsis Osteoporosis Hypertension Neuropathy T2DM (type 2 diabetes mellitus) Social History Smoking Status: Unknown if ever smoked Second Hand Exposure: No; Do You Dip or Chew Tobacco: No; Hx Alcohol Use: No Hx Substance Use: No Preferred Language: Ukrainian Communication Ability: Effective Concept Artist Required: No Beliefs That Will Affect Care: None Current Living Situation: Spouse Current Living Situation Comment: with spouse Feels Safe at Home: Yes Assistive Devices: Glasses Review of Systems Review of Systems: Currently unobtainable. Please refer to ER notes. Physical Exam Constitutional: + ill appearing, + obese and + lethargic Neck: trachea midline, no thyromegaly Respiratory: normal respiratory effort, lungs clear to auscultation Cardiovascular: RRR, no murmur, no edema Gastrointestinal (Abdomen): normal bowel sounds, soft, nontender, no hepatosplenomegaly Musculoskeletal: Extremities: extremities normal to inspection Skin: no rashes, warm and dry Neurologic: Obtunded Lymphatic: no cervical lymphadenopathy Results & Data Results & Data Vital Signs (Past 12 Hours) Vital Signs Temp Pulse Resp BP Pulse Ox O2 Del Method FiO2 05/23/24 12:00 111/64 Mechanical Vent 05/23/24 11:46 111/64 05/23/24 11:42 70 19 127/51 L 95 05/23/24 11:36 68 20 91 05/23/24 11:18 104 H 32 H 101/72 05/23/24 11:16 104/81 05/23/24 11:15 105 H 22 114/75 05/23/24 11:15 104 H 36 H 100 100 05/23/24 11:09 54 L 21 05/23/24 11:00 73 24 05/23/24 10:42 65 24 92/51 L 05/23/24 10:33 131 H 31 H 95/42 L 05/23/24 10:08 67 05/23/24 10:03 62 25 H 104/47 L 92 05/23/24 09:45 65 26 H 106/43 L 95 05/23/24 09:40 67 24 96 Room Air 05/23/24 09:27 35.4 C L 63 24 106/43 L 96 Room Air Critical Care Results & Data Vital Signs (Past 12 Hours) Vital Signs Temp Pulse Resp BP Pulse Ox O2 Del Method FiO2 05/23/24 12:00 111/64 Mechanical Vent 05/23/24 11:46 111/64 05/23/24 11:42 70 19 127/51 L 95 05/23/24 11:36 68 20 91 05/23/24 11:18 104 H 32 H 101/72 05/23/24 11:16 104/81 05/23/24 11:15 105 H 22 114/75 05/23/24 11:15 104 H 36 H 100 100 05/23/24 11:09 54 L 21 05/23/24 11:00 73 24 05/23/24 10:42 65 24 92/51 L 05/23/24 10:33 131 H 31 H 95/42 L 05/23/24 10:08 67 03/03/25 10:03 62 25 H 104/47 L 92 05/23/24 09:45 65 26 H 106/43 L 95 05/23/24 09:40 67 24 96 Room Air 05/23/24 09:27 35.4 C L 63 24 106/43 L 96 Room Air Lab & Micro Results (Past 24 Hours) RBC 4.10 M/uL (4.20-5.40) L 05/23/24 WBC 14.42 K/ul (4.8-10.8) H 05/23/24 Hgb 11.0 g/dl (12.0-16.0) L 05/23/24 Hct 32.0 % (37.0-47.0) L 05/23/24 MCV 78.0 fL (80.0-100.0) L 05/23/24 MCH 26.8 pg (25.0-34.0) 05/23/24 MCHC 34.4 g/dL (32.0-36.0) 05/23/24 RDW Standard Deviation 35.5 fL (36.4-46.3) L 05/23/24 RDW Coefficient of Variation 12.5 % (11.5-14.5) 05/23/24 Plt Count 238 K/uL (130-400) 05/23/24 MPV 12.4 fL (9.4-12.4) 05/23/24 Neutrophils (%) (Auto) 89.2 % 05/23/24 Lymphocytes (%) (Auto) 2.4 % 05/23/24 Monocytes # (Auto) 1.13 K/uL (0.11-0.59) H 05/23/24 Eosinophils # (Auto) 0.00 K/uL (0.00-0.50) 05/23/24 Immature Granulocyte % (Auto) 0.5 % 05/23/24 Neutrophils # (Auto) 12.86 K/uL (1.40-6.50) H 05/23/24 Lymphocytes # (Auto) 0.35 K/uL (1.20-3.40) L 05/23/24 Monocytes # (Auto) 1.13 K/uL (0.11-0.59) H 05/23/24 Eosinophils # (Auto) 0.00 K/uL (0.00-0.50) 05/23/24 Basophils # (Auto) 0.01 K/uL (0.00-0.20) 05/23/24 Immature Granulocyte # (Auto) 0.07 K/uL (0.01-0.20) 5 Na 114 mmol/L (136-145) L* 05/23/24 K 6.3 mmol/L (3.5-5.1) H* 05/23/24 Cl 76 mmol/L (98-107) L 05/23/24 CO2 13 mmol/L (21-32) L 05/23/24 Anion Gap 25 (3-11) H 05/23/24 BUN 167 mg/dl (6-23) H 05/23/24 Creatinine 3.76 mg/dl (0.6-1.2) H 05/23/24 BUN/Creatinine Ratio 44.4 (10-20) H 05/23/24 Glu 1439 mg/dl (70-99(Fasting)) H* 05/23/24 Ca 7.0 mg/dl (8.6-10.3) L 05/23/24 Phosphorus Level 10.2 mg/dl (2.5-4.9) H 05/23/24 Total Bilirubin 0.3 mg/dl (0.2-1.0) 05/23/24 Direct Bilirubin 0.1 mg/dl (0-0.2) 05/23/24 AST 82 U/L (13-39) H 05/23/24 ALT 35 U/L (7-52) 05/23/24 Alkaline Phosphatase 92 U/L (34-104) 05/23/24 TP 5.3 gm/dl (6.0-8.3) L 05/23/24 Albumin 3.2 gm/dl (3.4-5.0) L 05/23/24 Globulin Pending 05/23/24 Albumin/Globulin Ratio Pending 05/23/24 Mg 3.1 mg/dl (1.7-2.4) H 05/23/24 11:03 Calcium Level 7.0 mg/dl (8.6-10.3) L 05/23/24 11:03 Prothromb Time International Ratio 1.5 (0.9-1.1) H 05/23/24 09 :42 Venous Blood pH 7.02 (7.36-7.41) L 05/23/24 11:03 Venous Blood Partial Pressure CO2 29 mmHg (38-50) L 05/23/24 09 :42 Venous Blood Partial Pressure O2 53 mmHg 05/23/24 09:42 Venous Blood HCO3 8 mmol/L 05/23/24 09:42 Venous Blood Base Excess -22.4 mEq/L 05/23/24 09:42 Venous Blood Oxygen Saturation 79.3 % 05/23/24 09:42 Diagnostic Findings (Past 24 Hours) Chest X-Ray 05/23/24 09:40 XR chest 1V portable CLINICAL HISTORY: Sepsis COMPARISON STUDY: 12/14/2023 FINDINGS: There is stable mild cardiomegaly without pulmonary vascular congestion. Inspiration is shallow. There is interval mild stranding opacity at the left base. No other consolidation or pleural effusion. No pneumothorax. IMPRESSION: Shallow inspiration with atelectasis versus early pneumonia left lung base. ACT 112: Negative or not required by law. Electronically signed by: Francisco Thomas M.D. 05/23/2024 10:15 AM RT Ventilator Mngmt (Last Documented) Ventilator Ordered Settings Ventilator Support Mode Assist Control 05/23/24 11:15 Respiratory Rate 19 05/23/24 11:42 Ventilator Tidal Volume 400 05/23/24 11:15 Setting Minute Ventilation 16.9 05/23/24 11:15 Positive End Expiratory 5 05/23/24 11:15 Pressure Fraction of Inspired Oxygen 100 05/23/24 11:15 Machine Comment placed on vent in ED post- 05/23/24 11:15 intubation Ventilator - PT Measurements Respiratory Rate 19 Exhaled Tidal Volume 470 Minute Ventilation 16.9 Peak Inspiratory Airway 12 Pressure Respiratory Cycle Inspiratory: 1:1.4 Expiratory Ratio Inspiratory Phase Time 0.75 End-Tidal CO2 31 Dynamic Lung Compliance 67.14 Normal Static Lung Compliance 49.00 Coding Level of Care Code 95950 CRITICAL CARE EA ADD 30M Diagnoses Metabolic encephalopathy G93.41 Acute kidney injury N17.9 Sepsis without acute organ dysfunction, due to unspecified organism A41.9 Sepsis acute organ dysfunction status: without acute organ dysfunction Sepsis type: sepsis due to unspecified organism (3) Sepsis Sepsis acute organ dysfunction status: without acute organ dysfunction Sepsis type: sepsis due to unspecified organism Qualified Code(s): A41.9 - Sepsis, unspecified organism
[2024-05-23] MEDS: PHENYLEPHRINE/NSS 25 MG/250 ML BAG IV SCH (13:15)
--- NOTE | 2024-05-23 13:17 | Cardiology Consultation ---
Date of Consultation May 23, 2024 Assessment & Plan (1) Non-ST elevation KS (NSTEMI): Diffuse small vessel disease. No acute lesions. This is most consistent with type II non-ST elevation KS secondary to sepsis and DKA. Once she is hemodynamically stable then we could consider initiating guideline directed medical therapy for secondary prevention of coronary disease. This would include low-dose aspirin, beta-giana, high intensity statin therapy, and TOR inhibitor/ARB. Awaiting echo. (2) Atherogenic dyslipidemia: Patient is high risk (diabetes and coronary disease). High intensity statin therapy is recommended. Was on a atorvastatin 20 mg daily at home. This may not be adequate. We can check a fasting lipid panel and titrate. (3) Shock circulatory: Most likely this is secondary to dehydration with her DKA plus or minus sepsis. Does not appear to to be cardiogenic although I am waiting a full echo evaluation. The few pictures we obtained precath suggested the RV was not functioning properly but the LV was. Further recommendations pending results of the echo. History of Present Illness Reason for Consultation: EKG changes and abnormal troponin History of Present Illness 64-year-old diabetic female without known cardiac history but who does have a history of PAD presented via EMS for mental status changes. Her laboratory data suggested metabolic encephalopathy, DKA, acidosis, etc. She was hyperkalemic. She is unable to provide any meaningful dialogue. She had an EKG performed in the emergency department showing concave up inferior ST elevations as well as Q waves inferiorly. No reciprocal ischemic changes. Her troponin was elevated and therefore a "heart alert" was called. Review of her old EKG demonstrated Q waves inferiorly. She was hypotensive and volume depleted. She had bradycardia. Critical care medicine intubated the patient and placed her on sedation. Volume and electrolyte resuscitation. She was provided several amps of bicarbonate for her acidosis and her potassium was corrected. Following stabilization and this treatment we then took the patient to the cardiac catheterization suite where she underwent diagnostic coronary angiography from the right radial artery approach. This did not demonstrate any acute stenotic lesions. Patient has diffuse disease typical of diabetes. No focal lesions and no appropriate targets for PCI. Vessels are small. She is now admitted to the ICU for further workup and management. Allergies Allergy/AdvReac Type Severity Reaction Status Date / Time No Known Allergies Allergy Verified 05/23/24 10:03 Home Medications Medication Instructions Recorded Confirmed Type ergocalciferol (vitamin D2) 1,250 50,000 unit PO Q14D 12/14/23 05/23/24 History mcg (50,000 unit) capsule insulin glargine 100 unit/mL (3 23 unit subcut UD 12/14/23 05/23/24 History mL) subcutaneous pen (Lantus Solostar U-100 Insulin) metoprolol succinate 50 mg 50 mg PO HS 12/14/23 05/23/24 History tablet,extended release 24 hr risedronate 150 mg tablet 150 mg PO MONTHLY 12/14/23 05/23/24 History tramadol 50 mg tablet 50 mg PO UD PRN Pain 12/14/23 05/23/24 History vit A 7,160 unit-vit C 113 mg-vit 1 tab PO QAM 12/14/23 05/23/24 History E 100 ejzi-brvy-zwjysd tablet insulin aspart U-100 100 unit/mL 1 sliding scale dose SC ACHS #10 mL 12/22/23 05/23/24 Rx subcutaneous solution (Novolog U-100 Insulin aspart) aspirin 81 mg tablet,delayed 81 mg PO DAILY #30 tabs 01/14/24 05/23/24 Rx release (Adult Aspirin Regimen) atorvastatin 20 mg tablet 20 mg PO DAILY #90 tabs 01/14/24 05/23/24 Rx gabapentin 600 mg tablet 600 mg PO BID #180 tabs 02/05/24 05/23/24 Rx amlodipine 5 mg tablet (Norvasc) 5 mg PO UD 05/23/24 05/23/24 History empagliflozin 25 mg tablet 25 mg PO UD 05/23/24 05/23/24 History (Jardiance) lisinopril 30 mg tablet 30 mg PO UD 05/23/24 05/23/24 History Patient History Medical History Acute kidney injury Anemia PAD (peripheral artery disease) Sepsis Osteoporosis Hypertension Neuropathy T2DM (type 2 diabetes mellitus) Social History Smoking Status: Unknown if ever smoked Second Hand Exposure: No; Do You Dip or Chew Tobacco: No; Hx Alcohol Use: No Hx Substance Use: No Preferred Language: Moroccan Communication Ability: Effective Mail Handler Sorter Required: No Beliefs That Will Affect Care: None Current Living Situation: Spouse Current Living Situation Comment: with spouse Feels Safe at Home: Yes Assistive Devices: Glasses Review of Systems Review of Systems: Unobtainable Physical Exam Constitutional: Morbidly obese, acutely ill Neck: Thick. No JVD. Respiratory: Diminished air movement. No crackles or rhonchi. Intubated. Cardiovascular: Regular rate, irregular rhythm. Do not appreciate any rubs or murmurs. Neurologic: Patient was unresponsive except to pain initially. She became more unresponsive and was subsequently intubated and sedated. Results & Data Vital Signs (Past 12 Hours) Vital Signs Temp Pulse Resp BP Pulse Ox O2 Del Method FiO2 05/23/24 12:00 111/64 Mechanical Vent 05/23/24 11:46 111/64 05/23/24 11:42 70 19 127/51 L 95 05/23/24 11:36 68 20 91 05/23/24 11:18 104 H 32 H 101/72 05/23/24 11:16 104/81 05/23/24 11:15 105 H 22 114/75 05/23/24 11:15 104 H 36 H 100 100 05/23/24 11:09 54 L 21 05/23/24 11:00 73 24 05/23/24 10:42 65 24 92/51 L 05/23/24 10:33 131 H 31 H 95/42 L 05/23/24 10:08 67 05/23/24 10:03 62 25 H 104/47 L 92 05/23/24 09:45 65 26 H 106/43 L 95 05/23/24 09:40 67 24 96 Room Air 05/23/24 09:27 35.4 C L 63 24 106/43 L 96 Room Air PG Care Time/CCT Total # of Minutes Spent Total Time Spent with Patient: Total time spent is greater than 50% in coordination of care (as documented) at patient's floor/unit and/or counseling patient: Critical Care Time: Yes I spent a total of 60 minutes critical care time in the initial evaluation of the patient, review of the available records, discussion with the care team, formulation and implementation of a plan of care and all associated documentation. This time is exclusive of the time spent for the procedure. Coding Level of Care Code 93911 CRITICAL CARE 1ST 30-74M Diagnoses Non-ST elevation KS (NSTEMI) I21.4 Atherogenic dyslipidemia E78.5 Shock circulatory R57.9 Additional Codes Critical Care Time - Critical Care Time: Yes ([id number]) Time Spent (min) 60
[2024-05-23] MEDS: fentaNYL citrate PF 100 MCG/2 ML VIAL ONE (13:30)
[2024-05-23] MEDS: HEPARIN (PORCINE) 1000 UNIT/ML 10 ML (CATH LAB USE ONLY) ONE (13:31)
[2024-05-23] MEDS: MIDAZOLAM HCL 1 MG/ML 2ML VIAL ONE (13:32)
[2024-05-23] MEDS: niCARdipine 2,000 MCG/20 ML SYR ONE (13:32)
[2024-05-23 13:34] LABS: Albumin Globulin Ratio 1.6 (0.9-2); Albumin Level 2.4 gm/dl (3.4-5.0); Bilirubin,Total 0.3 mg/dl (0.2-1.0); Globulin 1.5 gm/dl (2.5-4.0); Potassium 4.1 mmol/L (3.5-5.1); Total Protein 3.9 gm/dl (6.0-8.3); Troponin I High Sensitivity 7517.1 pg/ml (0-14)
[2024-05-23] MEDS: TICAGRELOR 90 MG TAB ONE ×2 (13:34)
[2024-05-23] MEDS: OPTIRAY 350 ONE (13:34)
[2024-05-23] MEDS: NITROGLYCERIN/D5W 100MCG/ML 20ML SYR ONE (13:35)
[2024-05-23] MEDS: MIDAZOLAM HCL 125 MG/250 ML BAG IV SCH (13:36)
[2024-05-23 13:54] LABS: BUN Creatinine Ratio 45.8 (10-20)
--- NOTE | 2024-05-23 13:54 | XRay Report ---
XR chest 1V portable CLINICAL HISTORY: intubation COMPARISON STUDY: 05/23/2024 FINDINGS: Endotracheal tube tip is at the thoracic inlet in good position. Stable mild cardiomegaly w ithout pulmonary vascular congestion. No effusion, consolidation, or pneumothorax seen. IMPRESSION: Well-positioned endotracheal tube with well-aerated lungs. ACT 112: Negative or not required by law. Electronically signed by: Francisco Thomas M.D. 05/23/2024 1:52 PM
[2024-05-23] MEDS: fentaNYL citrate 2,500 MCG/250 ML BAG IV SCH (14:04)
[2024-05-23] MEDS: HEPARIN SOD (PORCINE) 1000 UNIT/ML ONE (14:09)
[2024-05-23] MEDS: INSULIN ASPART PER UNIT CHARGE SC SCH ×2 (14:09→16:47)
[2024-05-23] MEDS: NOREPINEPHRINE/D5W 4 MG/250 ML IV ONE (14:09)
[2024-05-23] MEDS: RAPID SEQUENCE INDUCTION BAG ONE (14:09)
[2024-05-23] MEDS: VECURONIUM BROMIDE 10 MG VIAL IV ONE (14:12)
[2024-05-23] MEDS: fentaNYL citrate 2,500 MCG/250 ML BAG IV ONE (14:12)
[2024-05-23] MEDS: PHENYLEPHRINE HCL 25 MG/250 ML NSS IV ONE (14:12)
[2024-05-23] MEDS ORDERED: PENDING 1/2NSS+20mEq KCL IVF SCH (14:30)
[2024-05-23] MEDS ORDERED: D5W AND 1/2NSS + 20MEQ KCL 20 MEQ/1,000 ML BAG IV SCH (14:45)
--- NOTE | 2024-05-23 14:51 | Pharmacy Report ---
Pharmacy Glycemic Short Note 2 - Date of Service May 23, 2024 - Glycemic Short BSG Results (Last 24 hours): 05/23/24 05/23/24 05/23/24 09:42 09:52 11:03 Glucose 1467 H* 1439 H* POC Glucose > 600 H* POC Glucose (other) 05/23/24 05/23/24 12:40 14:02 Glucose 1201 H* POC Glucose POC Glucose (other) > 700 H* OUTPATIENT ANTIDIABETIC REGIMEN: * empagliflozin 25mg PO daily * Lantus 23 units SQ BID (vs. 46 units daily) * Novolog TIDM HbA1C: ___ ASSESSMENT: * Pt is a 64 year old female admitted with DKA and metabolic encephalopathy. History of DM2 on insulin therapy at home. Pharmacy consulted to assist with glycemic management/drip transition. * Initial labs: BSG-[id number], AG-27, bicarb-10, pH-7.02. Pt initiated on an insulin drip per DKA protocol. Currently intubated and sedated and requiring vasopressor support. * Continue insulin infusion per DKA/HHS protocol until gap closed. Potassium containing IVF started and switch to dextrose containing IVF once BSG within goal range. PLAN FOR INPATIENT GLYCEMIC CONTROL: * Hold outpatient oral diabetes medications * Basal insulin * insulin infusion per DKA protocol * Bolus insulin * NovoLog per scale ACHS or Q6hrs while NPO * Goal Range: Low 150 mg/dL - High 250 mg/dL * Correction Factor: - mg/dL/unit * Nutritional / Prandial insulin per carb ratio of 1 unit per (calculator) grams CHO consumed
[2024-05-23] MEDS: SODIUM CHLOR 0.45% + 20MEQ KCL 20 MEQ/1,000 ML BAG IV SCH (15:18)
--- NOTE | 2024-05-23 15:44 | XCELERA ---
[id number] [id number]
[2024-05-23] MEDS: 4.5GM X1 IV STA (15:49)
[2024-05-23 16:04] LABS: BUN Creatinine Ratio 47.3 (10-20); Calcium 6.9 mg/dl (8.6-10.3); Creatinine Clr Calc Pharmacy 18.9 ml/min; Magnesium 2.9 mg/dl (1.7-2.4); Phosphorus 7.4 mg/dl (2.5-4.9); Potassium 3.9 mmol/L (3.5-5.1)
[2024-05-23] MEDS: PENDING D5 1/2NS+20mEq KCL IVF SCH (16:10)
[2024-05-23] MEDS: DKA GOAL RANGE 150-250 mg/dl ONE (16:10)
--- NOTE | 2024-05-23 16:31 | XRay Report ---
Clinical history: Tube placement One view of the abdomen was obtained Findings: There is a nasogastric tube with its tip within the gastric fundus There are mildly prominent air-filled loops of small and large bowel. There is no definite sign of bowel obstruction. The lower pelvis was not imaged. No renal or ureteral calculi are seen. No foreign body is evident. No osseous abnormality is seen Impression: Nasogastric tube coiled within the proximal stomach Electronically signed by Sesar Loza 05-23-2024 4:31 PM
--- NOTE | 2024-05-23 16:33 | Nephrology Consultation ---
Date of Consultation May 23, 2024 Assessment & Plan (1) Acute kidney injury: * JOLENE due to dehydration, hypotension related to DKI, influenza A infection * Patient required IV contrast administration for evaluation of STEMI. Only small vessel disease found on cardiac catheterization today * Hyperkalemia has corrected and metabolic acidosis is improving w/ volume resuscitation and IV insulin administration * Patient is remains clinically volume contracted. CXR is without CHF. SaO2 is 94% on 60% FiO2 * POC discussed w/ ICU team this afternoon. No acute indication for HD at this time. Continue supportive medical management * Jardiance, lisinopril have been held * Will order urinalysis w/ microscopy to check for ATN casts * Monitor BMP, UO (2) Influenza A: * Supportive care (3) DKA (diabetic ketoacidosis): * IV hydration, insulin gtt (4) Shock circulatory: * On phenylephrine gtt for MAP 65 (5) Non-ST elevation [place] (NSTEMI): * 05/23/24 cardiac cath - only small vessel disease History of Present Illness Reason for Consultation: JOLENE Attending Physician: Tucker Ray MD History of Present Illness Mrs. Hay is a 64 year old white female who is seen at the request of Dr. Zamarripa for evaluation of JOLENE. Information for the HPI is obtained from review of the EMR. Patient is currently sedated, mechanically ventilated in the ICU. HPI is summarized as follows: Mrs. Hay has a known h/o AODM, HTN, PAD s/p R 3rd toe amputation. She was brought to [facility] for evaluation of mental status changes. Medical evaluation revealed influenza A +. hypotension, DKA, JOLENE and STEMI. She required intubation and mechanical ventilation for protection of the airway. Phenylephrine was started for BP support. Cardiac cath revealed only small vessel disease. Mrs. Hay has been admitted to the ICU for ongoing medical management. Serum Cr has risen from baseline 0.8 to 3.4. UO has been 600 cc since admission. Patient presented w/ profound metabolic acidosis and hyperkalemia related to DKA (pH 7.0). This has improved w/ IV hydration and insulin administration. SaO2 is 94% on 60% FiO2. CXR is negative for CHF. Allergies Allergy/AdvReac Type Severity Reaction Status Date / Time No Known Allergies Allergy Verified 05/23/24 10:03 Home Medications Medication Instructions Recorded Confirmed Type ergocalciferol (vitamin D2) 1,250 50,000 unit PO Q14D 12/14/23 05/23/24 History mcg (50,000 unit) capsule insulin glargine 100 unit/mL (3 23 unit subcut UD 12/14/23 05/23/24 History mL) subcutaneous pen (Lantus Solostar U-100 Insulin) metoprolol succinate 50 mg 50 mg PO HS 12/14/23 05/23/24 History tablet,extended release 24 hr risedronate 150 mg tablet 150 mg PO MONTHLY 12/14/23 05/23/24 History tramadol 50 mg tablet 50 mg PO UD PRN Pain 12/14/23 05/23/24 History vit A 7,160 unit-vit C 113 mg-vit 1 tab PO QAM 12/14/23 05/23/24 History E 100 [id number] tablet insulin aspart U-100 100 unit/mL 1 sliding scale dose SC ACHS #10 mL 12/22/23 05/23/24 Rx subcutaneous solution (Novolog U-100 Insulin aspart) aspirin 81 mg tablet,delayed 81 mg PO DAILY #30 tabs 01/14/24 05/23/24 Rx release (Adult Aspirin Regimen) atorvastatin 20 mg tablet 20 mg PO DAILY #90 tabs 01/14/24 05/23/24 Rx gabapentin 600 mg tablet 600 mg PO BID #180 tabs 02/05/24 05/23/24 Rx amlodipine 5 mg tablet (Norvasc) 5 mg PO UD 05/23/24 05/23/24 History empagliflozin 25 mg tablet 25 mg PO UD 05/23/24 05/23/24 History (Jardiance) lisinopril 30 mg tablet 30 mg PO UD 05/23/24 05/23/24 History Patient History Medical History Acute kidney injury Anemia PAD (peripheral artery disease) Sepsis Osteoporosis Hypertension Neuropathy T2DM (type 2 diabetes mellitus) Social History Smoking Status: Unknown if ever smoked Second Hand Exposure: No; Do You Dip or Chew Tobacco: No; Hx Alcohol Use: No Hx Substance Use: No Preferred Language: Persian Communication Ability: Effective Data Communications Software Consultant Required: No Beliefs That Will Affect Care: None Current Living Situation: Spouse Current Living Situation Comment: with spouse Feels Safe at Home: Yes Assistive Devices: Glasses Review of Systems Review of Systems: Unobtainable due to endotracheal tube Physical Exam Constitutional: + ill appearing Eyes: PERRL, conjunctivae normal, anicteric sclerae ENMT: orotracheally intubated Neck: trachea midline, no thyromegaly Respiratory: coarse BS bilaterally Cardiovascular: RRR, no murmur, no edema Gastrointestinal (Abdomen): Inspection/Auscultation: abdomen normal to inspection and + hypoactive bowel sounds Percussion/Palpation: abdomen soft Skin: no rashes, warm and dry Neurologic: sedated Results & Data Vital Signs (Past 12 Hours) Vital Signs Temp Pulse Resp BP Pulse Ox Pulse Ox O2 Del Method 05/23/24 15:37 94 05/23/24 15:34 05/23/24 15:18 36.0 C L 69 20 95 05/23/24 15:15 99/55 L 05/23/24 15:12 36.0 C L 70 20 95 05/23/24 15:03 35.9 C L 72 20 97 05/23/24 15:00 121/59 L 05/23/24 14:57 35.9 C L 77 20 100 05/23/24 14:54 35.8 C L 73 20 100 05/23/24 14:53 117/45 L 05/23/24 14:53 117/45 L 05/23/24 14:52 74 20 100 05/23/24 14:46 69/36 L 05/23/24 14:33 71 20 100 05/23/24 14:30 109/54 L 05/23/24 14:30 71 20 100 05/23/24 14:15 72 20 100 05/23/24 14:15 114/54 L 05/23/24 14:15 114/54 L 05/23/24 14:15 114/54 L 05/23/24 14:15 114/54 L 05/23/24 14:03 73 20 100 05/23/24 14:00 102/53 L 05/23/24 13:54 71 20 100 05/23/24 13:45 96/51 L 05/23/24 13:45 71 20 100 05/23/24 13:44 05/23/24 13:42 70 20 100 05/23/24 13:38 96/53 L 05/23/24 13:38 96/53 L 05/23/24 13:31 90/41 L 05/23/24 13:30 69 20 100 05/23/24 13:21 73 20 85 L 05/23/24 13:15 93/44 L 05/23/24 13:15 93/44 L 05/23/24 13:15 93/44 L 05/23/24 12:00 111/64 Mechanical Vent 05/23/24 11:46 111/64 05/23/24 11:42 70 19 127/51 L 95 05/23/24 11:36 68 20 91 05/23/24 11:18 104 H 32 H 101/72 05/23/24 11:16 104/81 05/23/24 11:15 105 H 22 114/75 05/23/24 11:15 104 H 36 H 100 05/23/24 11:09 54 L 21 05/23/24 11:00 73 24 05/23/24 10:42 65 24 92/51 L 05/23/24 10:33 131 H 31 H 95/42 L 05/23/24 10:08 67 05/23/24 10:03 62 25 H 104/47 L 92 05/23/24 09:45 65 26 H 106/43 L 95 05/23/24 09:40 67 24 96 Room Air 05/23/24 09:27 35.4 C L 63 24 106/43 L 96 Room Air O2 Del Method FiO2 05/23/24 15:37 Mechanical Vent 05/23/24 15:34 60 05/23/24 15:18 05/23/24 15:15 05/23/24 15:12 05/23/24 15:03 05/23/24 15:00 05/23/24 14:57 05/23/24 14:54 05/23/24 14:53 05/23/24 14:53 05/23/24 14:52 60 05/23/24 14:46 05/23/24 14:33 05/23/24 14:30 05/23/24 14:30 05/23/24 14:15 05/23/24 14:15 05/23/24 14:15 05/23/24 14:15 05/23/24 14:15 05/23/24 14:03 05/23/24 14:00 05/23/24 13:54 05/23/24 13:45 05/23/24 13:45 05/23/24 13:44 70 05/23/24 13:42 05/23/24 13:38 05/23/24 13:38 05/23/24 13:31 05/23/24 13:30 100 05/23/24 13:21 05/23/24 13:15 05/23/24 13:15 05/23/24 13:15 05/23/24 12:00 05/23/24 11:46 05/23/24 11:42 05/23/24 11:36 05/23/24 11:18 05/23/24 11:16 05/23/24 11:15 05/23/24 11:15 100 05/23/24 11:09 05/23/24 11:00 05/23/24 10:42 05/23/24 10:33 05/23/24 10:08 05/23/24 10:03 05/23/24 09:45 05/23/24 09:40 05/23/24 09:27 Laboratory Results Laboratory Results WBC 14.42 K/ul (4.8-10.8) H 05/23/24 09:42 RBC 4.10 M/uL (4.20-5.40) L 05/23/24 09:42 Hgb 11.0 g/dl (12.0-16.0) L 05/23/24 09:42 Hct 32.0 % (37.0-47.0) L 05/23/24 09:42 MCV 78.0 fL (80.0-100.0) L 05/23/24 09:42 MCH 26.8 pg (25.0-34.0) 05/23/24 09:42 MCHC 34.4 g/dL (32.0-36.0) 05/23/24 09:42 RDW Std Deviation 35.5 fL (36.4-46.3) L 05/23/24 09:42 RDW Coeff of Nichol 12.5 % (11.5-14.5) 05/23/24 09:42 Plt Count 238 K/uL (130-400) 05/23/24 09:42 MPV 12.4 fL (9.4-12.4) 05/23/24 09:42 Immature Gran % (Auto) 0.5 % 05/23/24 09:42 Neut % (Auto) 89.2 % 05/23/24 09:42 Lymph % (Auto) 2.4 % 05/23/24 09:42 [place] % (Auto) 7.8 % 05/23/24 09:42 Eos % (Auto) 0.0 % 05/23/24 09:42 Baso % (Auto) 0.1 % 05/23/24 09:42 Neut # (Auto) 12.86 K/uL (1.40-6.50) H 05/23/24 09:42 Lymph # (Auto) 0.35 K/uL (1.20-3.40) L 05/23/24 09:42 [place] # (Auto) 1.13 K/uL (0.11-0.59) H 05/23/24 09:42 Eos # (Auto) 0.00 K/uL (0.00-0.50) 05/23/24 09:42 Baso # (Auto) 0.01 K/uL (0.00-0.20) 05/23/24 09:42 Immature Gran # (Auto) 0.07 K/uL (0.01-0.20) 05/23/24 09:42 PT 15.3 Seconds (9.0-12.0) H 05/23/24 09:42 INR 1.5 (0.9-1.1) H 05/23/24 09:42 VBG pH 7.10 (7.36-7.41) L 05/23/24 15:11 VBG pCO2 29 mmHg (38-50) L 05/23/24 09:42 VBG pO2 53 mmHg 05/23/24 09:42 VBG HCO3 8 mmol/L 05/23/24 09:42 VBG O2 Saturation 79.3 % 05/23/24 09:42 VBG Base Excess -22.4 mEq/L 05/23/24 09:42 Sodium 122 mmol/L (136-145) L 05/23/24 15:11 Potassium 3.9 mmol/L (3.5-5.1) 05/23/24 15:11 Chloride 86 mmol/L (98-107) L 05/23/24 15:11 Carbon Dioxide 12 mmol/L (21-32) L 05/23/24 15:11 Anion Gap 24 (3-11) H 05/23/24 15:11 BUN 155 mg/dl (6-23) H 05/23/24 15:11 Creatinine 3.28 mg/dl (0.6-1.2) H 05/23/24 15:11 Est Cr Clr Drug Dosing 18.9 ml/min 05/23/24 15:11 eGFR 15.22 05/23/24 15:11 BUN/Creatinine Ratio 47.3 (10-20) H 05/23/24 15:11 Glucose 1053 mg/dl (70-99(Fasting)) H* 05/23/24 15:11 POC Glucose > 600 mg/dl (70-99) H* 05/23/24 09:52 POC Glucose (other) > 700 mg/dl (70-99) H* 05/23/24 14:02 Lactate 2.1 mmol/L (0.4-2.0) H* 05/23/24 14:21 Calcium 6.9 mg/dl (8.6-10.3) L 05/23/24 15:11 Phosphorus 7.4 mg/dl (2.5-4.9) H 05/23/24 15:11 Magnesium 2.9 mg/dl (1.7-2.4) H 05/23/24 15:11 Total Bilirubin 0.3 mg/dl (0.2-1.0) 05/23/24 12:40 Direct Bilirubin 0.1 mg/dl (0-0.2) 05/23/24 09:42 AST 70 U/L (13-39) H 05/23/24 12:40 ALT 30 U/L (7-52) 05/23/24 12:40 Alkaline Phosphatase 69 U/L (34-104) 05/23/24 12:40 Troponin I High Sens 7517.1 pg/ml (0-14) H* 05/23/24 12:40 Total Protein 3.9 gm/dl (6.0-8.3) L D 05/23/24 12:40 Albumin 2.4 gm/dl (3.4-5.0) L 05/23/24 12:40 Globulin 1.5 gm/dl (2.5-4.0) L 05/23/24 12:40 Albumin/Globulin Ratio 1.6 (0.9-2) 05/23/24 12:40 Procalcitonin 1.66 ng/ml (0-0.5) H 05/23/24 09:42 Nasal Influ A H1 2009 PCR DETECTED (NotDetected) A 05/23/24 09:42 Nasal Screen MRSA (PCR) Negative (Negative) 05/23/24 13:45 Adenovirus (PCR) Not Detected (NotDetected) 05/23/24 09:42 B. pertussis DNA (PCR) Not Detected (NotDetected) 05/23/24 09:42 B.parapertussis DNA PCR Not Detected (NotDetected) 05/23/24 09:42 C. pneumoniae DNA (PCR) Not Detected (NotDetected) 05/23/24 09:42 Coronavirus OC43 (PCR) Not Detected (NotDetected) 05/23/24 09:42 Coronavirus HKU1 (PCR) Not Detected (NotDetected) 05/23/24 09:42 Coronavirus 229E (PCR) Not Detected (NotDetected) 05/23/24 09:42 SARS-CoV-2 (PCR) Not Detected (NotDetected) 05/23/24 09:42 Coronavirus NL63 (PCR) Not Detected (NotDetected) 05/23/24 09:42 Human Metapneumovir PCR Not Detected (NotDetected) 05/23/24 09:42 Influenza Type B (PCR) Not Detected (NotDetected) 05/23/24 09:42 M. pneumoniae (PCR) Not Detected (NotDetected) 05/23/24 09:42 Parainfluenza 1 (PCR) Not Detected (NotDetected) 05/23/24 09:42 Parainfluenza 2 (PCR) Not Detected (NotDetected) 05/23/24 09:42 Parainfluenza 3 (PCR) Not Detected (NotDetected) 05/23/24 09:42 Parainfluenza 4 (PCR) Not Detected (NotDetected) 05/23/24 09:42 RSV (PCR) Not Detected (NotDetected) 05/23/24 09:42 Entero/Rhino (PCR) Not Detected (NotDetected) 05/23/24 09:42 Impressions Chest X-Ray 05/23/24 13:05 XR chest 1V portable CLINICAL HISTORY: intubation COMPARISON STUDY: 05/23/2024 FINDINGS: Endotracheal tube tip is at the thoracic inlet in good position. Stable mild cardiomegaly without pulmonary vascular congestion. No effusion, consolidation, or pneumothorax seen. IMPRESSION: Well-positioned endotracheal tube with well-aerated lungs. ACT 112: Negative or not required by law. Electronically signed by: Francisco Thomas M.D. 05/23/2024 1:52 PM PG Care Time/CCT Total # of Minutes Spent Total Time Spent with Patient: Total time spent is greater than 50% in coordination of care (as documented) at patient's floor/unit and/or counseling patient: Coding Level of Care Code 60437 IN/OBS CONSULT LVL 5,80M Diagnoses Acute kidney injury N17.9 Influenza A J10.1 DKA (diabetic ketoacidosis) E11.10 Shock circulatory R57.9 Non-ST elevation TX (NSTEMI) I21.4
--- NOTE | 2024-05-23 16:45 | Cardiac Catheterization ---
[facility] Data: [employer] [employer] Cardiac Status Clinical evaluation leading to the procedure CAD Presenation: STEMI (Plus shock) Anginal Classification: No Symptoms Cardiogenic Shock within 24 Hours: Yes (Probably septic) Cardiac Arrest within 24 Hours: No Imaging Studies Past 6 Months: No Stress Studies Past 6 Months: No Coronary Anatomy Dominant: Right Left Main (% Stenosis): Normal LAD (% Stenosis): Distal (70 to 80%, small caliber vessel.) D1 (% Stenosis): Proximal (90%, small caliber vessel) D2 (% Stenosis): Normal (Subtotal occlusion, small caliber vessel) D3 (% Stenosis): Normal (Small caliber, diffuse severe) Circumflex (% Stenosis): Proximal (Less than 30%), Mid (Less than 30%) and Distal (Severe, small caliber vessel) OM1 (% Stenosis): Normal OM2 (% Stenosis): Normal OM3 (% Stenosis): Normal (Scattered less than 40%) L PL1 (% Stenosis): Proximal (90%, small caliber) RCA (% Stenosis): Proximal (Calcified 30%), Mid (Diffuse 20 to 30% plus ectasia at the RV M) and Distal (Diffuse up to 50%) R PDA (% Stenosis): Distal (Diffuse up to 80% distally, small caliber) R PL1 (% Stenosis): Normal (Diffuse moderate 50 to 69%) Diagnostic Physicians Name: Senthil Dick MD, PhD Closure Device Percutaneous Entry Location: Radial Closure Device: Radial Band Recommendations: Medical Therapy and/or Counseling Cardiac Cath Procedure Full Procedure Date May 23, 2024 Pre-Procedure Diagnosis Pre-Procedure Diagnosis: STEMI and Cardiothoracic Symptom (Shock) AUC Score AUC Score: 09 Post-Procedure Diagnosis Post-Procedure Diagnosis: Severe CAD Procedure(s) Performed Procedure(s) Performed: Coronary Angiography [facility] [employer] Senthil Dick MD, PhD Estimated Blood Loss Estimated Blood Loss: 5 cc Medication(s) Medication(s): Heparin and Lidocaine 1% Summary of Findings Brief description: Patient came from the emergency department. She had already been sedated and intubated. She was critically ill and hypotensive on arrival. Her phenylephrine drip was increased and her blood pressure improved. She was shaved and prepped in a sterile fashion. Soft tissues of the right wrist were anesthetized using 2 mL of 1% Xylocaine. The right radial artery was accessed with a modified Seldinger technique and a 6 Sami radial artery glide sheath was placed. Patient was provided anticoagulation with IV heparin. She was not provided antispasmodics including nicardipine and nitroglycerin. She had been sedated using Versed and fentanyl drips in the emergency department which continued in the [employer] [employer]. Using a Wholey wire for initial advancement a 5 Sami JL 3.5 diagnostic catheter was advanced. However, he could not sit properly in the left main so was then exchanged over the 0.035 J-tip wire for a 5 Sami JR4 diagnostic cath. Right coronary angiography was performed in orthogonal views using this catheter. The catheter then was removed and a 5 Sami EBU 3.5 guide catheter was used to perform coronary angiography of the left system. Catheter was then removed from the patient over the J-wire. Radial artery sheath was removed and hemostasis was obtained using the TR band. Patient was hemodynamically stable on IV pressor support in addition to IV fluid s. Patient was then admitted to the ICU for further workup and management. She remained intubated and sedated. Coronary angiography findings: LMT-Short in caliber and calcified vessel. Bifurcates into the LAD and circumflex. No significant disease. LAD-medium to large caliber vessel. Proximally its moderately calcified. It gives a thin first septal branch and then a larger branching second septal. And also gives a small caliber branching D1 which appears to have proximal 90% stenosis. There is a small second diagonal which is subtotally occluded. There is a third diagonal which is small in caliber and has severe diffuse disease. The mid LAD has no significant disease. The distal vessel becomes small in caliber and has a focal 70 to 80% stenosis. LCx-this is medium to large in caliber and nondominant. Travels in the AV groove where the proximal and mid vessel have diffuse less than 30% stenosis. Provides 2 small caliber obtuse marginal branches. It then essentially becomes a large caliber OM 3 which has multiple branches. There is a less than 40% scattered plaques in this vessel. After the ostium of the OM 3 the distal AV groove circumflex becomes much smaller and has diffuse severe disease. There is a small to medium caliber posterior lateral arising after the OM 3 and this has proximal 90% stenosis but is too small for PCI. Circumflex provides faint [id number] collateralization. RCA-medium to large caliber dominant vessel. Proximal vessel has calcified 30% stenosis. Mid vessel has diffuse mildly calcified disease of 20 to 30%. It is ectatic at the origin of an RV marginal branch which appears to be a small caliber vessel. The distal RCA has diffuse disease with up to 50% stenosis. It then bifurcates into the medium caliber branching PDA and medium caliber branching posterolateral. The PDA has diffuse disease with up to 80% stenosis in its most distal aspect. The posterolateral has diffuse moderate disease of 50 to 70%. Summary: 1. Patient has diffuse coronary disease. Coronaries are relatively small. Severe lesions in the small branch vessels not amenable to PCI. Otherwise, mild to moderate disease in the larger vessels many of which are too small for PCI as well. There is no culprit lesion to suggest acute ST elevation IN. There are [id number] collaterals to the distal RCA territory which is consistent with prior Q waves and no acute ST segment changes. 2. Patient with DKA and probable sepsis with significant dehydration. These are the likely etiologies of her hypotension and she was not initially perfusing well. She will remain on vasopressor support as needed. Treatment per critical care team. 3. Once the patient no longer requires vasopressor support, I would recommend gentle introduction of guideline directed medical therapy for secondary pre vention of coronary disease. This should include low-dose aspirin, high intensity statin therapy, beta-giana, and TOR inhibitor/ARB given her diabetes. Hemodynamics Rest Ao:: 92/36 mmHg Final Ao: 100/42 mmHg LV: Not performed Recommendations Recommendations: Medical Therapy and/or Counseling Radiation Exposure (mGy) 1553 mGy, fluoroscopy time 7.3 minutes Contrast (mls) 130 cc Anesthesia Versed and fentanyl drips. Managed by critical care Procedural Complication(s) None Disposition ICU I attest to the content of the Intraoperative Record and any orders documented therein. Any exceptions are noted below. [facility] Card Cath Procedure Codes Cardiac Catheterization Procedure 1: Cardiovascular Cath Procedures: 30863 Coronaries PG Care Time/CCT Total # of Minutes Spent Total Time Spent with Patient: Total time spent is greater than 50% in coordination of care (as documented) at patient's floor/unit and/or counseling patient:
[2024-05-23 16:58] LABS: Appearance Urine Cloudy (Clear); Bacteria Urine Automated None Seen (None Seen); Bilirubin Urine Negative (Negative); Blood Urine 1+ (Negative); Color Urine Yellow; Glucose Urine UA 3+ (Negative); Ketones Urine Trace (Negative); Leukocyte Esterase Urine Negative (Negative); Nitrite Urine Negative (Negative); Protein Urine Negative (Negative); RBC Urine Automated 0-2 /hpf (0-2); Specific Gravity Urine 1.025 (1.000-1.030); Urobilinogen Urine Negative (Negative)
[2024-05-23] MEDS: PLASMA-LYTE A 500 ML IV ONE (19:40)
[2024-05-23 19:50] LABS: Calcium 7.1 mg/dl (8.6-10.3); Magnesium 2.6 mg/dl (1.7-2.4); Potassium 3.8 mmol/L (3.5-5.1)
[2024-05-23 20:09] LABS: BUN Creatinine Ratio 45.2 (10-20)
[2024-05-23] MEDS: POTASSIUM CHLORIDE 20 MEQ/15 ML UDC NG STA (20:28)
[2024-05-23] MEDS: HEPARIN SOD 5,000 UNIT/0.5 ML VIAL SQ SCH (20:28)
[2024-05-23] MEDS: PANTOprazole 40 MG/10 ML SYR IV SCH (20:28)
[2024-05-23] MEDS ORDERED: MEROPENEM 500 MG in SYRINGE 0 ML IV SCH (21:00)
[2024-05-23] MEDS: 4.5GM EXT INFUSION IV SCH (23:00)
[2024-05-23 23:17] LABS: Creatinine Clr Calc Pharmacy 17.9 ml/min; Magnesium 2.4 mg/dl (1.7-2.4); Phosphorus 3.5 mg/dl (2.5-4.9)
[2024-05-23 23:30] LABS: BUN Creatinine Ratio 45.4 (10-20)
--- OUTSIDE RECORDS SUMMARY | 2024-05-23 23:54 | External Medical Summary | Summary of Care ---
Author Name Unknown Organization [facility] Address [address] [facility] [place] [address] Phone [phone] Care Team Providers Care Php Web Developer Name Role Phone Jeferson Oneil PA-C Primary Care Provider + Reason for Visit * Reason Onset Date Comments TRIAGE Non-CE DM Diabetes Management 11/06/2023 Non-CE DM Encounter Details Date Type Department Care Team (Late st Contact Info) Description 11/06/2023 Telephone Centralized Clinical Pharmacy Services, Sabrina Arroyo [address] [place] [address] [place] [id number] Radha Kim, [facility] [phone] [place] [id number] TRIAGE (Non-CE DM); Diabetes Management (N... Allergies Active Allergy Reactions Criticality Noted Date Comments Penicillins 12/01/2000 Augmentin= rash documented as of this encounter (statuses as of 03/24/2024) Medications insulin glargine (LANTUS) 100 UNIT/ML injection 20-25 UNITS AT NIGHT TIME Active Gabapentin 600 MG Tablet 1 TABLET THREE TIMES DAILY Active metFORMIN (GLUCOPHAGE) 500 MG Tablet 1 TABLET THREE TIMES DAILY Active Risedronate Sodium (ACTONEL) 150 MG TABS 1 TABLET PER MONTH Active Vitamin D, Ergocalciferol, 32764 UNITS Capsule 1 CAP EVERY OTHER WEEK Active Multiple Vitamins-Mineral s (OCUVITE ADULT 50+) Capsule 1 CAP DAILY Activ e traMADol (ULTRAM) 50 MG Tablet As needed 06/08/2015 Active Fluocinonide 0.05 % cream As needed 11/21/2015 Active lisinopril (PRINIVIL) 10 MG Tablet Take 2 Tabs by mouth daily. 1 TABLET DAILY 60 Tab 04/29/2016 Active ELIQUIS 2.5 MG TABS 05/09/2016 Active oxyCODONE-acetam inophen 5-325 mg per tab (PERCOCET) 5-325 MG per tablet 05/09/2016 Activ e atorvaSTATin (LIPITOR) 40 MG Tablet Take by mouth daily. 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 09/06/2014 Diabetic macular edema 09/06/2014 Overview (07/31/2015): ICD-10 update of inactive term Nuclear senile cataract of both eyes 09/06/2014 Family history of other cardiovascular diseases 12/03/2000 Overview (06/14/2015): ICD-10 update of inactive term Mixed dyslipidemia HTN, goal below 140/90 documented as of this encounter (statuses as of 03/24/2024) Social History Tobacco Use Types Packs/Day Years [...] years and over) Not on file 09/08/2023 Comments No Sex and Gender Information Value Date Recorded Sex Assigned at Not on file Legal Sex Female 7:10 AM EST Gender Identity Not on file Sexual Orientation Not on file 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 Not on file Not on file documented as of this encounter Miscellaneous Notes * Telephone Encounter - Roseann Ruiz CPhT - 03/24/2024 9:54 AM EST Per priya, pt no longer has [facility] insurance, will check again with the next list drop Thank you, Roseann Ruiz CPhT [place] [facility] Services ([facility]) 03/24/2024, 9:54 AM * Telephone Encounter - Julio Radha Taylor, [facility] - 11/06/2023 3:58 PM EDT [facility] Non-Clinical [place] [facility] THIS NOTE SERVES FOR TRIAGING PURPOSES ONLY AND IS NOT A PATIENT CONTACT. PATIENT MAY BE CONTACTED FOLLOWING MY ASSESSMENT. DNC list. Previously successful, reassess. Patient was identified to be a candidate for the Non-CE telephonic program based on the following criteria: Pharmacy AND/OR Medical High Cost / A1c < 9.0 / PDC >=80% Patient managed by [facility] provider? No; Is Pertinent Diabetes Info in Care Everywhere? Yes Last A1C: 07/04/23 (Result Date: 8.9%) Diabetes Diagnosis: Type 2 After chart review the following opportunities were identified: Mail Order Invite, Obtain Updated A1c, Therapy Optimization (PRN), and services? Vaccine review Action to be taken by milking machine technician: This is a follow up call. Patient last spoke with [facility] on 01/01/23, schedule an appointment. [...] Day Supply: 98 Quantity: 45 Radha Kim [facility] Clinical Pharmacist 11/06/2023, 3:58 PM documented in this encounter Plan of Treatment Health Maintenance Due Date Last Done Comments Depression Screening 1973 HIV Screening 1976 Diabetic Foot Exam 1979 Hepatitis C Screening 1979 DTap/Tdap Vaccines (1 - Tdap) 1980 Pneumococcal Vaccine: 50+ Years (1 of 2 - PCV) 1980 HPV/Co-Test 1991 Cervical Cancer Screening 03/07/2006 Pap Smear 03/07/2006 03/07/2003, 02/20, 04/01/2001 Cologuard 2006 Colonoscopy 2006 Colorectal Cancer Screening 2006 Fecal Occult Blood Test 2006 Sigmoidoscopy 2006 Zoster Vaccines (1 of 2) 2011 Mammogram 06/28/2022 06/28/2021, 04/0 10/2021, 06/28/2021, Additional history exists COVID-19 Vaccine ( - season) 2023 Influenza Vaccine (FLU shot) (#1) 2023 Albumin/Creatinine Ratio 04/09/2024 024, 05/08/2021, 01/16/2020 HbA1c 09/06/2024 03/08/2024, 10/22, 07/04/2023, Additional history exists Diabetic Eye Exam 02/16/2025 02/17/2024, , 09/14/2023, Additional history exists GFR 03/08/2025 03/08/2024, 01/21, 12/25/2023, Additional history exists Lipid Panel 11/11/2028 11/12/2023, [...] filedocumented as of this encounter Care Teams Php Web Developer Relationship Specialty Start Date End Date Jeferson Oneil PA-C [address] [address] [place] [id number] PCP - General Physician Artificial Log Machine Operator 11/12/23 documented as of this encounter"
--- OUTSIDE RECORDS SUMMARY | 2024-05-23 23:54 | External Medical Summary | Summary of Care ---
Author Name Unknown Organization [facility] Address [address] [place] [address] Phone [phone] Care Team Providers Care Scientific Linguist Name Role Phone Jeferson Oneil PA-C Primary Care Provider + Reason for Visit * Reason Comments Outpatient Testing Encounter Details Date Type Department Care Team (Late st Contact Info) Description 03/08/2024 12:00 PM [facility] Laboratory Laboratory Patient Service [address] [phone] [facility] [address] [address] ARF (acute renal failure) ([facility])*; DM coma, type 2 ([facility]); Dyslipidemia, goal LDL below 160; HTN, goal below 140/90 Allergies Active Allergy Reactions Criticality Noted Date Comments Penicillins 12/01/2000 Augmentin= rash documented as of this encounter (statuses as of 03/08/2024) Medications insulin glargine (LANTUS) 100 UNIT/ML injection 20-25 UNITS AT NIGHT TIME Active Gabapentin 600 MG Tablet 1 TABLET THREE TIMES DAILY Active metFORMIN (GLUCOPHAGE) 500 MG Tablet 1 TABLET THREE TIMES DAILY Active Risedronate Sodium (ACTONEL) 150 MG TABS 1 TABLET PER MONTH Active Vitamin D, Ergocalciferol, 40232 UNITS Capsule 1 CAP EVERY OTHER WEEK [...] as of this encounter (statuses as of 03/08/2024) Active Problems Problem Noted Date Diagnosed Date [...] as of this encounter (statuses as of 03/08/2024) Social History Tobacco Use Types Packs/Day Years [...] 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 Not on file Not on file documented as of this encounter Plan of Treatment Pending Results Name Type Priority Associated Diagnoses Date /Time RENAL FUNCTION PANEL Lab Routine ARF (acute renal failure) (HCC) 03/08/2024 12:03 PM EST HEMOGLOBIN A1C Lab Routine ARF (acute renal failure) (HCC) DM coma, type 2 (HCC) 03/08/2024 12:03 PM EST Scheduled Orders Name Type Priority Associated Diagnoses Orde r Schedule RENAL FUNCTION PANEL Lab Routine ARF (acute renal failure) (HCC) Expected: 03/08/2024, Expires: 03/08/2025 HEMOGLOBIN A1C Lab Routine ARF (acute renal failure) (HCC) DM coma, type 2 (HCC) Expected: 03/08/2024, Expires: 03/08/2025 Health Maintenance Due Date Last Done Comments [...] 10/2021, 06/28/2021, Additional history exists COVID-19 Vaccine (1 - 2024-25 season) 2023 Influenza Vaccine (FLU shot) (#1) 2023 Albumin/Creatinine Ratio 04/09/20242 024, 05/08/2021, 01/16/2020 HbA1c 05/14/2024 11/12/2023, 0405/2023, 04/09/2023, Additional history exists GFR 01/31/2025 02/01/2024, 10/0 06/2023, 11/12/2023, Additional history exists Diabetic Eye Exam 02/16/2025 02/17/2024, , 09/14/2023, Additional history exists Lipid Panel 11/11/2028 11/12/2023, [...] as of this encounter Visit Diagnoses Diagnosis ARF (acute renal failure) (HCC)- Primary Acute kidney failure, unspecified DM coma, type 2 (HCC) Type II or unspecified type diabetes mellitus with other coma, not stated as uncontrolled Dyslipidemia, goal LDL below 160 Other and unspecified hyperlipidemia HTN, goal below 140/90 Unspecified essential hypertension documented in this encounter Care Teams Scientific Linguist Relationship Specialty Start Date End Date Jeferson Oneil PA-C 1 [facility] [address] [place] [address] PCP - General Physician Boat Designer 11/12/23 documented as of this encounter
--- OUTSIDE RECORDS SUMMARY | 2024-05-23 23:54 | External Medical Summary ---
Author Name Unknown Address Unknown Organization R1WR:[facility] [address] [place] [address] Laboratory Report Ordering Provider Test Date Status ANA HUERTAS 02/08/2024 14:45:00 Final Observation Date Value Abnormality Reference (Units) Status Specimen Description 02/08/2024 20:51 Wound Final Special Requests 02/08/2024 20:51 FOOT Final Gram Stain 02/09/2024 09:20 3+ Gram Positive Cocci Final Culture 02/11/2024 13:24 2+ Group B Streptococci (S. agalactiae) Final 2+ Normal Skin Nivia 2+ Ente rococcus faecalis Report Status 02/15/2024 09:16 Final Result 02/15/2024 Final Organism 02/13/2024 07:50 2+ Enterococcus faecalis Final METHOD 02/13/2024 07:50 Microscan YANETH-ug/ml (SABRINA) Final Ampicillin 02/13/2024 07:50 <=2 Sensitive Susceptible Final Daptomycin 02/13/2024 07:50 1 Sensitive Susceptible Final Penicillin 02/13/2024 07:50 2 Sensitive Susceptible Final Vancomycin 02/13/2024 07:50 1 Sensitive Susceptible Final Organism 02/15/2024 09:16 2+ Group B Stre ptococci (S. agalactiae) Final METHOD 02/15/2024 09:16 Microscan YANETH-ug/ml (SABRINA) Final Ampicillin 02/15/2024 09:16 0.12 Sensitive Susceptible Final Cefepime 02/15/2024 09:16 <=0.25 Sensitive Susceptible Final Cefotaxime 02/15/2024 09:16 <=0.25 Sensitive Susceptible Final Ceftriaxone 02/15/2024 09:16 <=0.25 Sensitive Susceptible Final Clindamycin 02/15/2024 09:16 <=0.06 Sensitive Susceptible Final Penicillin 02/15/2024 09:16 0.06 Sensitive Susceptible Final Vancomycin 02/15/2024 09:16 0.5 Sensitive Susceptible Final Performing Location [facility] [address] [place] [address]
--- OUTSIDE RECORDS SUMMARY | 2024-05-23 23:54 | External Medical Summary | Summary of Care ---
Author Name Unknown Organization [facility] Address [address] [place] [address] Phone [phone] Care Team Providers Care Assistant District Attorney Name Role Phone Jeferson Oneil PA-C Primary Care Provider + Reason for Visit * Reason Comments Outpatient Testing Encounter Details Date Type Department Care Team (Late st Contact Info) Description 03/08/2024 12:00 PM [facility] Laboratory Laboratory Patient Service [address] [phone] [facility] [address] [address] ARF (acute renal failure) ([facility])*; DM coma, type 2 ([facility]); Dyslipidemia, goal LDL below 160; [...] TABLET PER MONTH Active Vitamin D, Ergocalciferol, 24219 UNITS Capsule 1 CAP EVERY OTHER WEEK [...] 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
--- OUTSIDE RECORDS SUMMARY | 2024-05-23 23:54 | External Medical Summary | Summary of Care ---
Author Name Unknown Organization [facility] Ambulatory Address [address] [place] [address] Phone Care Team Providers Care Credit Coordinator Name Role Phone Clarice Kahn PA-C, Jeferson Primary Care Provider [phone] Provider, Generic External Data Unavailable Unavailable Source [...] except as provided at sections 2.12(c)(5) and 2.65.[facility] Ambulatory Reason for Visit * Reason Comments Foot Pain [place] on foot Encounter Details Date Type Department Care Team (Late st Contact Info) Description 02/08/2024 2:45 PM EST Office Visit Family Med Cheryl [address] [place] [address] Screw Machine Operator Single Spindle: Cadence Panda John V, PA-C [address] [place] [address] Cellulitis and abscess of toe of right foot (Primary Dx) Allergies Active Allergy Reactions Criticality Noted Date Comments Meloxicam High Elevates BP Penicillins 12/01/2000 Augmentin= rash documented as of this encounter (statuses as of 02/24/2024) Medications Medication Sig Dispensed Refills Start Date [...] oral Daily PRN, Reported on 12/27/2021 insulin [place], Disposable, (JENNIE PEN NEEDLE) 32 gauge x 5/32" needle Use daily as directed 30 each 5 05/10/2021 Active fluocinonide (LIDEX) 0.05 % topical cream Apply topically 2 times a day PRN 30 g 3 07/04/2022 Active Blood-Glucose Sensor (DEXCOM G7 SENSOR) misc device Use daily as directed to monitor BS Dx E11.69 3 each 3 12/23/2022 Active Blood-Glucose Meter,Continuous (DEXCOM G7 LIBRARY ACQUISITIONS TECHNICIAN) misc misc Use daily as directed to monitor blood glucose . E11.69 1 each 12/23/2022 Active insulin aspart U-100 (NOVOLOG) 100 unit/mL (3 mL) subcutaneous flexpen INJECT 3 UNITS TWICE DAILY BEFORE MEAL(S) 15 mL 02/20/2023 Active risedronate (ACTONEL) 150 mg oral tablet TAKE 1 TABLET BY MOUTH ONCE EVERY MONTH DIRECTED 4 tablet 2 07/10/2023 Active ergocalciferol (VITAMIN D2) 1,250 mcg (50,000 unit) oral capsule TAKE 1 CAPSULE BY MOUTH EVERY TWO WEEKS DIRECTED 6 capsule 1 10/03/2023 Active metoprolol succinate (TOPROL-XL) 50 mg oral extended-release tablet Take 1 tablet by mouth once daily 90 tablet 1 01/01/2024 Active gabapentin (NEURONTIN) 600 mg oral tablet Take 1 tablet by mouth twice daily 180 tablet 01/06/2024 Active amLODIPine (NORVASC) 5 mg oral tablet Take 1 tablet by mouth 2 times a day 180 tablet 3 01/08/2024 Active LANTUS SOLOSTAR U-100 INSULIN 100 unit/mL (3 mL) subQ subcutaneous pen INJECT 46 UNITS SUBCUTANEOUSLY IN THE MORNING 45 mL 1 01/09/2024 Active traMADoL (ULTRAM) 50 mg oral tablet TAKE 1 TABLET BY MOUTH EVERY 6 HOURS NEEDED FOR PAIN 20 tablet 01/25/2024 Active aspirin EC 81 mg oral delayed-release tablet Take 81 mg by mouth daily 01/14/2024 Active atorvastatin (LIPITOR) 20 mg oral tablet Take 20 mg by mouth daily 01/14/2024 Active sulfamethoxazole-t rimethoprim (BACTRIM DS) 800-160 mg oral tablet Take 1 tablet by mouth 2 times a day for 10 days 20 tablet 02/08/2024 4 documented as of this encounter (statuses as of 02/24/2024) Active Problems Problem Noted Date Diagnosed Date Benign hypertension 2018 Diabetes mellitus 2018 Neuropathy 2018 Charcot's arthropathy 2018 documented as of this encounter (statuses as of 02/24/2024) Social History Tobacco Use Types Packs/Day Years [...] of Binge Drinking Not on file 08/21 [facility] - Occupational [...] Sign Reading Time Taken Comments Blood Pressure 122/74 02/08/2024 2:51 PM EST Pulse 95 02/08/2024 2:51 PM EST Temperature 36.2 C (97.1 F) 02/08/2024 2:51 PM ES T Respiratory Rate 18 02/08/2024 2:51 PM EST Oxygen Saturation 99% 02/08/2024 2:51 PM EST Inhaled Oxygen Concentration - - Weight 88.2 kg (194 lb 8 oz) 02/08/2024 2:51 PM EST Height - - Body Mass Index 36.16 11/13/2023 8:33 AM EDT documented in this encounter Progress Notes * Jeferson Oneil PA-C - 02/08/2024 2:45 PM EST Subjective CC: Chief Complaint Patient presents with Foot Pain [place] on foot HPI: Monie is a 63 year old female that presents for wound on dorsal aspect right 2nd toe x few days. No fevers. Increased redness and swelling. S/p amputation of right 3rd toe 2/2 osteomyelitis. Completed IV abx. She finished the Augmentin yesterday. She will follow up with her foot surgeon, Dr. Coffey. Sugars are much better -- using novolog consistently. Only using Lantus 18 u BID now that she is doing much better with novolog. Review of Systems Eyes: Negative for pain and visual disturbance. Respiratory: Negative for cough, chest tightness and shortness of breath. Cardiovascular: Negative for chest pain, palpitations and leg swelling. Gastrointestinal: Negative for abdominal pain, diarrhea, nausea and vomiting. Endocrine: Negative for polydipsia, polyphagia and polyuria. Genitourinary: Negative for hematuria. Musculoskeletal: Positive for arthralgias. Skin: Positive for wound. Negative for rash. Neurological: Negative for dizziness, tremors, syncope and headaches. Hematological: Negative for adenopathy. Past Medical History: Diagnosis Date Diabetes (HCC) Essential hypertension Osteoporosis Vitamin D deficiency Past Surgical History: Procedure Laterality Date FOOT/TOES SURGERY PROC UNLISTED Right Right foot 6 broken bones TONSILLECTOMY / ADENOIDECTOMY TONSILLECTOMY/ADENOIDECTOMY Family History Problem Relation Age of Onset Heart Disease Biological Father [place] Diabetes Brother Social History Socioeconomic History Marital status: Single Tobacco Use Smoking status: Former Passive exposure: Never Smokeless tobacco: Never Vaping Use Vaping status: never used Substance and Sexual Activity Alcohol use: No Drug use: Never Sexual activity: Never Outpatient Medications Marked as Taking for the 02/08/24 encounter (Office Visit) with Jeferson Oneil PA-C Medication Sig Dispense Refill ALLERGY RELIEF, LORATADINE, 10 mg oral tablet TAKE 1 TABLET BY MOUTH ONCE DAILY FOR 30 DAYS (Patient taking differently: Take 10 mg by mouth daily as needed) 90 tablet 1 amLODIPine (NORVASC) 5 mg oral tablet Take 1 tablet by mouth 2 times a day 180 tablet 3 aspirin EC 81 mg oral delayed-release tablet Take 81 mg by mouth daily atorvastatin (LIPITOR) 20 mg oral tablet Take 20 mg by mouth daily blood glucose test strip Test Blood sugar one a day Blood-Glucose Meter,Continuous (DEXBlaBlaCar G7 LIBRARY ACQUISITIONS TECHNICIAN) misc misc Use daily as directed to monitor blood glucose . E11.69 1 each 0 Blood-Glucose Sensor (DEXCOM G7 SENSOR) misc device Use daily as directed to monitor BS Dx E11.69 3each 3 ergocalciferol (VITAMIN D2) 1,250 mcg (50,000 [...] oral tablet Take 1 tablet by mouth twice daily 180 tablet 0 insulin aspart U-100 (NOVOLOG) 100 unit/mL (3 mL) subcutaneous flexpen INJECT 3 UNITS TWICE DAILY BEFORE MEAL(S) 15 mL 0 insulin [place], Disposable, (JENNIE PEN NEEDLE) 32 gauge x 5/32" needle Use daily as directed 30 each 5 LANTUS SOLOSTAR U-100 INSULIN 100 unit/mL (3 mL) subQ subcutaneous pen INJECT 46 UNITS SUBCUTANEOUSLY IN THE MORNING 45 mL 1 metoprolol succinate (TOPROL-XL) 50 mg oral extended-release tablet Take 1 tablet by mouth once daily 90 tablet 1 risedronate (ACTONEL) 150 mg oral tablet TAKE 1 TABLET BY MOUTH ONCE EVERY MONTH DIRECTED 4 tablet 2 sulfamethoxazole-trimethoprim (BACTRIM DS) 800-160 mg oral tablet Take 1 tablet by mouth 2 times a day for 10 days 20 tablet 0 traMADoL (ULTRAM) 50 mg oral tablet TAKE 1 TABLET BY MOUTH EVERY 6 HOURS NEEDED FOR PAIN 20 tablet 0 Allergies Allergen Reactions Meloxicam Elevates BP Penicillins Augmentin= rash Objective BP 122/74 | Pulse 95 | Temp 97.1 F (36.2 C) (Temporal) | Resp 18 | Wt 194 lb 8 oz (88.2 kg) | SpO2 99% | BMI 36.16 kg/m Physical Exam Vitals reviewed. Constitutional: General: [...] General: Skin is warm and dry. Findings: Wound (right 2nd toe dorsal aspect with surrounding erythema and scant purulence) present. No rash. Neurological: Mental Status: She is alert and oriented to person, place, and time. Cranial Nerves: No cranial nerve deficit. Psychiatric: Behavior: Behavior normal. Assessment/Plan Start bactrim. Elevate foot. Await culture. Follow up with podiatry in 2 days. Tight glycemic control stressed. Diagnosis ICD-10-CM Plan 1. Cellulitis and abscess of toe of right foot L03.031 SUPERFICIAL WOUND CULTURE L02.611 Orders Placed This Encounter SUPERFICIAL WOUND CULTURE sulfamethoxazole-trimethoprim (BACTRIM DS) 800-160 mg oral tablet Return if symptoms worsen or fail to improve. documented in this encounter Nursing Notes * Lilly Hennessy - 02/08/2024 2:45 PM EST Patient is here due to having an inflamed corn on her foot. States it is raised up and very swollen. She has been going to the foot doctor and goes back Thursday but she called them and said they can't get her in any sooner. She states she wants to get it checked to make sure it is nothing serious. She was putting a bandaid on when going to work but it was getting worse then she said the last 2 days she hasn't but it bleeds and seeps and goes on her sock but the bleeding isn't that bad. They did a culture on her foot when it first happened but they never told her about it. States it got bad Thursday. documented in this encounter Plan of Treatment Scheduled Orders Name Type Priority Associated Diagnoses Orde r Schedule SUPERFICIAL WOUND CULTURE Lab Routine Cellulitis and abscess of toe of right foot Ordered: 02/08/2024 Health Maintenance Due Date Last Done Comments Cologuard 1961 Colonoscopy 1961 Colorectal Cancer Screening 1961 Fecal Occult Blood Testing 1961 Sigmoidoscopy 1961 Pneumococcal Vaccine (1 of 2 - PCV) 1967 DTaP/Tdap/Td Vaccine (1 - Tdap) 1980 Cervical Cancer Screening 1982 Colposcopy 1982 HPV/Cotest 1982 Pap Smear 1982 Shingles Vaccine (Recombinant) (1 of 2) 2011 Hepatitis B Vaccine (1 of 3 - Risk 3-dose series) 2021 RSV Vaccine (1 - Risk 60-74 years 1-dose series) 2021 Urine Albumin Battery 05/08/2022 05/08/2021 Mammogram 06/29/2023 06/28/2021, 04/22/2019 Diabetic Foot Exam 07/05/2023 07/04/2022, 1 , 09/16/2019 Controlled Substance Agreement 10/04/2023 10/03/2022, 07/04/2022, 08/31/2020 COVID-19 Vaccine ( - 2024-25 season) 2023 Flu Vaccine (#1) 12/22/2023 Billable Depression Screen 01/10/202401/09, 12/27/2021, 08/31/2020 Full Body Skin Exam 01/10/2024 01/09/2023 HbA1c 05/14/2024 11/12/2023, 06/21, 01/07/2023, Additional history exists Diabetic Retinal Exam 09/13/2024 09/14/2023 , 02/11/2023, 11/19/2022, Additional history exists Creatinine Serum 11/11/2024 11/12/2023, , 04/09/2023, Additional history exists Lipid Profile 11/11/2024 11/12/2023, 09/20, 05/08/2021, Additional history exists Potassium 11/11/2024 11/12/2023, 06/21, 04/09/2023, Additional history exists Advance Directives 2025 Postponed from 1979 (Medical Reason) Depression Screening Completed 04/10/2023, 01/10/20 23 HIV Screening Discontinued Hepatitis C Screen Discontinued documented as of this encounter Visit Diagnoses Diagnosis Cellulitis and abscess of toe of right foot- Primary documented in this encounter Care Teams Credit Coordinator Relationship Specialty Start Date End Date Jeferson Oneil PA-C 1 [facility] [address] [place] [phone] PCP - General Family Medicine 9/24/18 Provider, Generic External Data 01/20/20 documented as of this encounter
--- OUTSIDE RECORDS SUMMARY | 2024-05-23 23:54 | External Medical Summary | Summary of Care ---
Author Name Unknown Organization [facility] Ambulatory Address [address] [place] [address] Phone Care Team Providers Care Air Grinder Name Role Phone Clarice Kahn PA-C, Jeferson Primary Care Provider [phone] Provider, Generic External Data Unavailable Unavailable Source [...] except as provided at sections 2.12(c)(5) and 2.65.[facility] Ambulatory Reason for Visit * Reason Comments Routine Follow Up Encounter Details Date Type Department Care Team (Latest Contact Info) Description 03/18/2024 9:00 AM EST Office Visit Family [facility] Cheryl [address] [address] Community Service Representative: Cadence Panda John V, PA-C [address] [place] [address] Type 2 diabetes mellitus with other specified complication, with long-term current use of insulin (HCC) (Primary Dx); Osteomyelitis of third toe of right foot (HCC); Status post amputation of lesser toe of right foot (HCC); Benign hypertension; Neuropathy; Hyperlipidemia, unspecified hyperlipidemia type; Charcot's arthropathy Allergies Active Allergy Reactions Criticality Noted Date Comments Meloxicam High Elevates BP Penicillins 12/01/2000 Augmentin= rash documented as of this encounter (statuses as of 03/24/2024) Medications Medication Sig Dispensed Refills Start Date End Date Status fluticasone (FLONASE) 50 mcg/actuation nasal spray Use 2 sprays in each nostril daily as needed Active blood glucose test strip Test Blood sugar one a day Active ALLERGY RELIEF, LORATADINE, 10 mg oral tablet TAKE 1 TABLET BY MOUTH ONCE DAILY FOR 30 DAYS 90 tablet 1 12/15/19 19 Active Additional Information Patient taking differently: 10 mg oral Daily PRN, Reported on 12/27/2021 insulin Mountain, Disposable, (JENNIE PEN NEEDLE) 32 gauge x 5/32" needle Use daily as directed 30 each 5 05/10/19 22 Active Blood-Glucose Sensor (DEXCOM G7 SENSOR) misc device Use daily as directed to monitor BS Dx E11.69 3 each 3 12/24/19 23 Active Blood-Glucose Meter,Continuous (DEXCOM G7 NUCLEAR SPECTROSCOPIST) misc misc Use daily as directed to monitor blood glucose . E11.69 1 each 12/24/19 23 Active risedronate (ACTONEL) 150 mg oral tablet TAKE 1 TABLET BY MOUTH ONCE EVERY MONTH DIRECTED 4 tablet 2 07/10/19 24 Active metoprolol succinate (TOPROL-XL) 50 mg oral extended-release tablet Take 1 tablet by mouth once daily 90 tablet 1 01/01/20 24 Active gabapentin (NEURONTIN) 600 mg oral tablet Take 1 tablet by mouth twice daily 180 tablet 01/06/20 24 Active amLODIPine (NORVASC) 5 mg oral tablet Take 1 tablet by mouth 2 times a day 180 tablet 3 01/08/20 24 Active LANTUS SOLOSTAR U-100 INSULIN 100 unit/mL (3 mL) subQ subcutaneous pen INJECT 46 UNITS SUBCUTANEOUSLY IN THE MORNING 45 mL 1 01/09/20 24 Active aspirin EC 81 mg oral delayed-release tablet Take 81 mg by mouth daily 01/14/20 24 Active atorvastatin (LIPITOR) 20 mg oral tablet Take 20 mg by mouth daily 01/14/20 24 Active fluocinonide (LIDEX) 0.05 % topical cream APPLY TOPICALLY TO AFFECTED AREA TWICE DAILY NEEDED 30 g 1 02/25/20 24 Active amoxicillin-pota ssium clavulanate (AUGMENTIN) 875-125 mg oral tablet TAKE 1 TABLET BY MOUTH EVERY 12 HOURS WITH MEALS FOR 14 DAYS FOR TOE INFECTION 03/11/20 24 Active traMADoL (ULTRAM) 50 mg oral tablet Take 1 tablet by mouth every 6 hours as needed for pain 30 tablet 03/18/20 24 Active insulin aspart U-100 (NOVOLOG) 100 unit/mL (3 mL) subcutaneous flexpen INJECT 3 UNITS TWICE DAILY BEFORE MEAL(S) 15 mL 02/21/20 23 024 Discontinued(Re order) ergocalciferol (VITAMIN D2) 1,250 mcg (50,000 unit) oral capsule TAKE 1 CAPSULE BY MOUTH EVERY TWO WEEKS DIRECTED 6 capsule 1 10/03/19 24 024 Discontinued traMADoL (ULTRAM) 50 mg oral tablet TAKE 1 TABLET BY MOUTH EVERY 6 HOURS NEEDED FOR PAIN 20 tablet 01/25/20 24 024 Discontinued(Re order) insulin aspart U-100 (NOVOLOG) 100 unit/mL (3 mL) subcutaneous flexpen Inject using sliding scale subcu before meals and at bedtime 15 mL 5 03/18/20 24 024 Discontinued(Re order) documented as of this encounter (statuses as [...] Average Number of Drinks Not on file Frequency of Binge Drinking Not on file 08/21 [facility] - Occupational Stress [...] Sign Reading Time Taken Comments Blood Pressure 178/86 03/18/2024 9:08 AM EST Pulse 77 03/18/2024 9:06 AM EST Temperature 35.4 C (95.7 F) 03/18/2024 9:06 AM ES T Respiratory Rate 18 03/18/2024 9:06 AM EST Oxygen Saturation 95% 03/18/2024 9:06 AM EST Inhaled Oxygen Concentration - - Weight 89.5 kg (197 lb 4 oz) 03/18/2024 9:06 AM EST Height 156.2 cm (5' 1.5") 03/18/2024 9:06 AM EST Body Mass Index 36.67 03/18/2024 9:06 AM EST documented in this encounter Progress Notes * Jeferson Oneil PA-C - 03/18/2024 9:00 AM EST Subjective CC: Chief Complaint Patient presents with Routine Follow Up HPI: Monie is a 64 year old female that presents for diabetes follow up; 1) HTN -- BP is elevated as usual. Has a h/o white coat HTN. States her BP at home is typically very well controlled. She checks that daily. 2) DM 2 -- HgbA1C is improved to 8.2. Last check was at 10.9. She was without her dexcom for a period of time. Still using dexcom. She did not get the Ozempic filled due to cost. She has made some significant life changes and dietary changes. She is currently taking Lantus 36 units daily. She has had 3 episodes [...] mammogram in June 2021. 5) Hyperlipidemia -- stable on atorvastatin. She refuses to have a colonoscopy. S/p amputation of right 3rd toe 2/2 osteomyelitis. Completed IV abx. She finished the Augmentin yesterday. She will follow up with her foot surgeon, Dr. Coffey. Renal function has normalized following JOLENE while in hospital. Review of Systems Eyes: Negative for pain [...] Age of Onset Heart Disease Biological Father ID Diabetes Brother Social History Socioeconomic History Marital status: Single Tobacco Use Smoking status: Former Passive exposure: Never Smokeless tobacco: Never Vaping Use Vaping status: never used Substance and Sexual Activity Alcohol use: No Drug use: Never Sexual activity: Never Outpatient Medications Marked as Taking for the 03/18/24 encounter (Office Visit) with Jeferson Oneil PA-C Medication Sig Dispense Refill ALLERGY RELIEF, LORATADINE, 10 mg oral tablet TAKE 1 TABLET BY MOUTH ONCE DAILY FOR 30 DAYS (Patient taking differently: Take 10 mg by mouth daily as needed) 90 tablet 1 amLODIPine (NORVASC) 5 mg oral tablet Take 1 tablet by mouth 2 times a day 180 tablet 3 amoxicillin-potassium clavulanate (AUGMENTIN) 875-125 mg oral tablet TAKE 1 TABLET BY MOUTH EVERY 12 HOURS WITH MEALS FOR 14 DAYS FOR TOE INFECTION aspirin EC 81 mg oral delayed-release tablet Take 81 mg by mouth daily atorvastatin (LIPITOR) 20 mg oral tablet Take 20 mg by mouth daily blood glucose test strip Test Blood sugar one a day Blood-Glucose Meter,Continuous (DEXCOM G7 NUCLEAR SPECTROSCOPIST) misc misc Use daily as directed to monitor blood glucose . E11.69 1 each 0 Blood-Glucose Sensor (DEXCOM G7 SENSOR) misc device Use daily as directed to monitor BS Dx E11.69 3each 3 ergocalciferol (VITAMIN D2) 1,250 mcg (50,000 unit) oral capsule TAKE 1 CAPSULE BY MOUTH EVERY TWO WEEKS DIRECTED 6 capsule 1 fluocinonide (LIDEX) 0.05 % topical cream APPLY TOPICALLY TO AFFECTED AREA TWICE DAILY NEEDED 30g 1 fluticasone (FLONASE) 50 mcg/actuation nasal spray Use 2 sprays in each nostril daily as needed gabapentin (NEURONTIN) 600 mg oral tablet Take 1 tablet by mouth twice daily 180 tablet 0 insulin aspart U-100 (NOVOLOG) 100 unit/mL (3 mL) subcutaneous flexpen Inject using sliding scale subcu before meals and at bedtime 15 mL 5 insulin Mountain, Disposable, (JENNIE PEN NEEDLE) 32 gauge x [...] every 6 hours as needed for pain 30 tablet 0 Allergies Allergen Reactions Meloxicam Elevates BP Penicillins Augmentin= rash Objective BP (!) 178/86 | Pulse 77 | Temp 95.7 F (35.4 C) (Temporal) | Resp 18 | Ht 5' 1.5" (156.2 cm) | Wt 197 lb 4 oz (89.5 kg) | SpO2 95% | BMI 36.67 kg/m Physical Exam Vitals reviewed. Constitutional: General: [...] nerve deficit. Psychiatric: Behavior: Behavior normal. Assessment/Plan Follow up with podiatry in 3 days. Tight glycemic control stressed. Finish augmentin. Labs as ordered. Healthy low carb diet and daily walking stressed. Remain off work for now. Diagnosis ICD-10-CM Plan 1. Type 2 diabetes mellitus with other specified complication, with long-term current use of insulin ([facility]) E11.69 BASIC METABOLIC PANEL Z79.4 HEMOGLOBIN A1C (HGBA1C) 2. Osteomyelitis of third toe of right foot (HCC) M86.9 3. Status post amputation of lesser toe of right foot ([facility]) Z89.421 4. Benign hypertension I10 BASIC METABOLIC PANEL 5. Neuropathy G62.9 6. Hyperlipidemia, unspecified hyperlipidemia type E78.5 BASIC METABOLIC PANEL 7. Charcot's arthropathy M14.60 Orders Placed This Encounter BASIC METABOLIC PANEL HEMOGLOBIN A1C (HGBA1C) insulin aspart U-100 (NOVOLOG) 100 unit/mL (3 mL) subcutaneous flexpen traMADoL (ULTRAM) 50 mg oral tablet Return in about 3 months (around 06/16/2024). documented in this encounter Nursing Notes * Lilly Hennessy - 03/18/2024 9:00 AM EST Patient is here for a follow up. States she would like to discuss some medications. She is currently still in a boot for her foot. She said the side of her foot has been rubbing on the pressure pointand she has been seeing a foot doctor. She is currently dealing with a cold. She said she is congested and has been coughing up clear sputum. documented in this encounter Plan of Treatment Scheduled Orders Name Type Priority Associated Diagnoses Orde r Schedule BASIC METABOLIC PANEL Lab Routine Type 2 diabetes mellitus with other specified complication, with long-term current use of insulin (HCC) Benign hypertension Hyperlipidemia, unspecified hyperlipidemia type 1 Occurrences starting 03/18/2024 until 03/18/2025 HEMOGLOBIN A1C (HGBA1C) Lab Routine Type 2 diabetes mellitus with other specified complication, with long-term current use of insulin (HCC) 1 Occurrences starting 03/18/2024 until 03/18/2025 Health Maintenance Due Date Last Done Comments Cologuard 1961 Colonoscopy 1961 Colorectal Cancer Screening 1961 Fecal Occult Blood Testing 1961 Sigmoidoscopy 1961 Colposcopy 1982 HPV/Cotest 1982 Pap Smear 1982 Mammogram 06/29/2023 06/28/2021, 04/22/2019 Depression Screening 03/23/2024 04/10/2023, 01/10/20 23 HbA1c 05/14/2024 11/12/2023, 06/21, 01/07/2023, Additional history exists Diabetic Retinal Exam 09/13/2024 09/14/2023 , 02/11/2023, 11/19/2022, Additional history exists Creatinine Serum 11/11/2024 11/12/2023, , 04/09/2023, Additional history exists Lipid Profile 11/11/2024 11/12/2023, 09/20, 05/08/2021, Additional history exists Potassium 11/11/2024 11/12/2023, 06/21, 04/09/2023, Additional history exists RSV Vaccine (1 - Risk 60-74 years 1-dose series) 03/05/2025 Postponed from 2021 (Recommended) Advance Directives 2025 Postponed from 1979 (Medical Reason) Billable Depression Screen 03/18/202503/18, 01/09/2023, 12/27/2021, Additional history exists COVID-19 Vaccine (1 - season) 2025 Postponed from 11/22/2023 (Recommended Yet Declined) Cervical Cancer Screening 03/18/2025 Po stponed from 1982 (Recommended) Controlled Substance Agreement 03/18/2025 03/18/2024, 10/03/2022, 07/04/2022, Additional history exists DTaP/Tdap/Td Vaccine (1 - Tdap) 03/18/2025 Postponed from 1980 (Recommended Yet Declined) Diabetic Foot Exam 03/18/2025 03/18/2024, 0 07/04/2022, 01/05/2021, Additional history exists Flu Vaccine (#1) 03/18/2025 Postponed f rom 12/22/2023 (Recommended Yet Declined) Full Body Skin Exam 03/18/2025 01/09/2023 Postpone d from 01/10/2024 (Recommended) Hepatitis B Vaccine (1 of 3 - Risk 3-dose series) 03/18/2025 Postponed from 2021 (Recommended) Pneumococcal Vaccine (1 of 2 - PCV) 03/18/2025 Postponed from 1967 (Recommended Yet Declined) Shingles Vaccine (Recombinant) (1 of 2) 03/18/2025 Postponed from 2011 (Recommended) Urine Albumin Battery 03/18/2025 05/08/2021 Postpo hernando from 05/08/2022 (Recommended) HIV Screening Discontinued Hepatitis C Screen Discontinued documented as of this encounter Visit Diagnoses Diagnosis Type 2 diabetes mellitus with other specified complication, with long-term current use of insulin (HCC)- Primary Osteomyelitis of third toe of right foot (HCC) Status post amputation of lesser toe of right foot (HCC) Benign hypertension Essential hypertension, benign Neuropathy Mononeuritis of unspecified site Hyperlipidemia, unspecified hyperlipidemia type Charcot's arthropathy Tabes dorsalis documented in this encounter Care Teams Air Grinder Relationship Specialty Start Date End Date Jeferson Oneil V PAElizabethC 1 [facility] [address] [place] [id number] PCP - General Family Medicine 12/14/17 Provider, Generic External Data 01/20/20 documented as of this encounter
--- OUTSIDE RECORDS SUMMARY | 2024-05-23 23:54 | External Medical Summary | Summary of Care ---
Author Name Unknown Organization [facility] Address [address] [place] [address] Phone [phone] Care Team Providers Care Weight Control Engineer Name Role Phone Jeferson Oneil PA-C Primary Care Provider + Reason for Visit * Reason Comments Outpatient Testing Encounter Details Date Type Department Care Team (Late st Contact Info) Description 03/08/2024 12:00 PM [facility] Laboratory Laboratory Patient Service [address] [phone] Formerly [facility] [address] [address] ARF (acute renal failure) ([facility])*; DM coma, type 2 ([facility]); Dyslipidemia, goal LDL below 160; HTN, goal [...] TABLET PER MONTH Active Vitamin D, Ergocalciferol, 76056 UNITS Capsule 1 CAP EVERY OTHER WEEK [...] 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
--- OUTSIDE RECORDS SUMMARY | 2024-05-23 23:54 | External Medical Summary | Summary of Care ---
Author Name Unknown Organization [facility] Address [address] [place] [address] Phone [phone] Care Team Providers Care Foxer Name Role Phone Jeferson Oneil PA-C Primary Care Provider + Reason for Visit * Reason Comments Outpatient Testing Encounter Details Date Type Department Care Team (Late st Contact Info) Description 03/08/2024 12:00 PM [facility] Laboratory Laboratory Patient Service [address] [phone] [facility] [address] [address] ARF (acute renal failure) ([facility])*; DM coma, type 2 ([facility]); Dyslipidemia, goal LDL below 160; [...] TABLET PER MONTH Active Vitamin D, Ergocalciferol, 51991 UNITS Capsule 1 CAP EVERY OTHER WEEK [...] 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
--- OUTSIDE RECORDS SUMMARY | 2024-05-23 23:54 | External Medical Summary ---
Author Name Unknown Address Unknown Organization K01:[facility] - [address] [place] [address] Laboratory Report Ordering Provider Test Date Status GARCIA HARRIS 03/08/2024 12:03:13 Final Observation Date Value Abnormality Reference (Units ) Status BUN 03/08/2024 12:03:13 26 Above high normal 6-20 (mg/dL) Final Creatinine 03/08/2024 12:03:13 0.8 0.5-1.0 (mg/dL) Final Glomerular filtration rate/1.73 sq M.predicted [Volume Rate/Area] in Serum, Plasma or Blood by Creatinine-based formula (CKD-EPI) 03/08/2024 12:03:13 80 >=60 (mL/min) Final eGFR is calculated based on the CKD-EPI 2020 equation. Sodium 03/08/2024 12:03:13 143 135-146 (m mol/L) Final Potassium 03/08/2024 12:03:13 4.6 3.5-5.1 (m mol/L) Final Cl 03/08/2024 12:03:13 104 98-107 (mm ol/L) Final CO2 03/08/2024 12:03:13 27 22-32 (mmo l/L) Final Anion gap 03/08/2024 12:03:13 12 7-15 (mmol /L) Final Glucose 03/08/2024 12:03:13 120 70-120 (mg /dL) Final Calcium 03/08/2024 12:03:13 9.5 8.4-10.2 ( mg/dL) Final Albumin 03/08/2024 12:03:13 4.2 3.8-5.0 (g /dL) Final Phosphate 03/08/2024 12:03:13 3.5 2.5-4.8 (m g/dL) Final Performing Location [facility] - [address] [place] [address]
--- OUTSIDE RECORDS SUMMARY | 2024-05-23 23:54 | External Medical Summary | Summary of Care ---
Author Name Unknown Organization [facility] Address [address] [place] [address] Phone [phone] Care Team Providers Care Air Tank Assembler Name Role Phone Jeferson Oneil PA-C Primary Care Provider + Encounter Details Date Type Department Care Team (Latest Contact Info) Description 04/29/2024 1:49 PM EST - 04/29/2024 11:59 PM EST Hospital Encounter Radiology, [facility] [address] [place] [address] Arrived Discharge Disposition: Home - Self Care Allergies Active Allergy Reactions Criticality Noted Date Comments Penicillins 12/01/2000 Augmentin= rash documented as of this encounter (statuses as of 04/30/2024) Medications insulin glargine (LANTUS) 100 UNIT/ML injection 20-25 UNITS AT NIGHT TIME Active Gabapentin 600 MG Tablet 1 TABLET THREE TIMES DAILY Active metFORMIN (GLUCOPHAGE) 500 MG Tablet 1 TABLET THREE TIMES DAILY Active Risedronate Sodium (ACTONEL) 150 MG TABS 1 TABLET PER MONTH Active Vitamin D, Ergocalciferol, 45676 UNITS Capsule 1 CAP EVERY OTHER WEEK [...] as of this encounter (statuses as of 04/30/2024) Active Problems Problem Noted Date Diagnosed Date [...] as of this encounter (statuses as of 04/30/2024) Social History Tobacco Use Types Packs/Day Years Used Date Smoking Tobacco: Former Cigarettes 0.5 20 0 05/22/1983 - 05/22/2003 Smokeless Tobacco: Never Alcohol Use Standard Drinks/Week Comments No 0 (1 standard drink = 0.6 oz pur e alcohol) Comments No Sex and Gender Information Value Date Recorded Sex Assigned at Not on file Legal Sex Female 7:10 AM EST Gender Identity Not on file Sexual Orientation Not on file 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 [...] 2006 Zoster Vaccines (1 of 2) 2011 COVID-19 Vaccine (1 - season) 2023 Influenza Vaccine (FLU shot) (#1) 2023 Albumin/Creatinine Ratio 04/09/2024 024, 05/08/2021, 01/16/2020 HbA1c 09/06/2024 03/08/2024, 10/22, 07/04/2023, Additional history exists Diabetic Eye Exam 02/16/2025 02/17/2024, , 09/14/2023, Additional history exists GFR 03/08/2025 03/08/2024, 01/21, 12/25/2023, Additional history exists Mammogram 04/29/2025 04/29/2024, 0410/2021, 06/28/2021, Additional history exists Lipid Panel 11/11/2028 11/12/2023, [...] Not on filedocumented as of this encounter Procedures Procedure Name Priority Date/Time Associated Diagnosis Comments MAMMOGRAM SCREENING NOAH BILATERAL Routine 04/29/2024 2:11 PM EST Screening mammogram for breast cancer documented in this encounter Results * MAMMOGRAM SCREENING NOAH BILATERAL (04/29/2024 2:11 PM EST) Anatomical Region Laterality Modality Breast Bilateral Mammography Narrative 04/29/2024 2:55 PM EST Result MAMMOGRAM SCREENING NOAH BILATERAL History Screening mammogram for breast cancer Family medical history includes breast cancer in mother. Films Compared 06/28/2021 MAMMOGRAM SCREENING BILATERAL and 04/22/2019 MAMMOGRAM SCREENING BILATERAL Findings There are scattered areas of fibroglandular density. There is no evidence of suspicious masses, calcifications, or other abnormal findings. Impression Bilateral No mammographic evidence of malignancy. BI-RADS Category: 1 - Negative. Recommendation Screening mammogram in 1 year is recommended for both breasts. Digital breast tomosynthesis was performed. This digital mammogram has been analyzed with the computer aided detection system. Breast tissue can be either dense or not dense. Dense tissue makes it harder to find breast cancer on a mammogram and also raises the risk of developing breast cancer. Your breast tissue is not dense. Talk to your healthcare provider about breast density, risks for breast cancer, and your individual situation. This examination was performed at [facility], [address] [place] [address]. [phone] Jeferson Oneil PA-C RAD MAMMOGRAPHY Final Re sult documented in this encounter Visit Diagnoses Diagnosis Screening mammogram for breast cancer documented in this encounter Care Teams Air Tank Assembler Relationship Specialty Start Date End Date Jeferson Oneil PA-C [address] [address] PCP - General Physician Line Repairer 11/12/23 documented as of this encounter
--- OUTSIDE RECORDS SUMMARY | 2024-05-23 23:54 | External Medical Summary | Summary of Care ---
Author Name Unknown Organization [facility] Address [address] [place] [address] Phone [phone] Care Team Providers Care Sales Support Consultant Name Role Phone Jeferson Oneil PA-C Primary Care Provider + Reason for Visit * Reason Onset Date Comments TRIAGE Non-CE DM Diabetes Management 11/06/2023 Non-CE DM Encounter Details Date Type Department Care Team (Late st Contact Info) Description 11/06/2023 Telephone Centralized Clinical Pharmacy Services, Sabrina Arroyo [address] [place] [address] [place] [id number] Radha Kim, [facility] [address] [place] [phone] TRIAGE (Non-CE DM); Diabetes Management (N... Allergies Active Allergy Reactions Criticality Noted Date Comments Penicillins 12/01/2000 Augmentin= rash documented as of this encounter (statuses as of 03/30/2024) Medications insulin glargine (LANTUS) 100 UNIT/ML injection 20-25 UNITS AT NIGHT TIME Active Gabapentin 600 MG Tablet 1 TABLET THREE TIMES DAILY Active metFORMIN (GLUCOPHAGE) 500 MG Tablet 1 TABLET THREE TIMES DAILY Active Risedronate Sodium (ACTONEL) 150 MG TABS 1 TABLET PER MONTH Active Vitamin D, Ergocalciferol, 76522 UNITS Capsule 1 CAP EVERY OTHER WEEK [...] as of this encounter (statuses as of 03/30/2024) Active Problems Problem Noted Date Diagnosed Date [...] as of this encounter (statuses as of 03/30/2024) Social History Tobacco Use Types Packs/Day Years [...] 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 Will re-evaluate in the future if patient meets qualifying criteria. Closing encounter. BARTOLO Perez 03/30/24, 8:24 AM * Telephone Encounter - Roseann Ruiz CPhT - 03/24/2024 9:54 AM EST Per priya, pt no longer has P insurance, will check again with the next list drop Thank you, Roseann Ruiz CPhT Continuous Towel Roller II [facility] ([facility]) 03/24/2024, 9:54 AM * Telephone Encounter - Radha Kim, [facility] - 11/06/2023 3:58 PM EDT [facility] Non-Clinical [place] Diabetes Initiative THIS NOTE SERVES FOR TRIAGING PURPOSES ONLY AND IS NOT A PATIENT CONTACT. PATIENT MAY BE CONTACTED FOLLOWING MY ASSESSMENT. DNC list. Previously successful, reassess. Patient was identified to be a candidate for the Non-CE telephonic program based on the following criteria: Pharmacy AND/OR Medical High Cost / A1c < 9.0 / PDC >=80% Patient managed by [facility] provider? No; Is Pertinent Diabetes Info in Care Everywhere? Yes Last A1C: 07/04/23 (Result Date: 8.9%) Diabetes Diagnosis: Type 2 After chart review the following opportunities were identified: Mail Order Invite, Obtain Updated A1c, Therapy Optimization (PRN), and services? Vaccine review Action to be taken by precision agriculture technician: This is a follow up call. Patient last spoke with [facility] on 01/01/23, schedule an appointment. Needs [...] Day Supply: 98 Quantity: 45 Radha Kim [facility] Clinical Pharmacist 11/06/2023, 3:58 PM documented [...] filedocumented as of this encounter Care Teams Sales Support Consultant Relationship Specialty Start Date End Date Jeferson Oneil PA-C [address] [address] [place] [address] PCP - General Physician Textile Machine Mechanic 11/12/23 documented as of this encounter"
--- OUTSIDE RECORDS SUMMARY | 2024-05-23 23:54 | External Medical Summary ---
Author Name Unknown Address Unknown Organization [id number]:[facility] [place] [address] [facility] [address] Laboratory Report Ordering Provider Test Date Status ANA HUERTAS 03/08/2024 12:03:13 Final Observation Date Value Abnormality Reference (Units ) Status HbA1C 03/08/2024 12:03:13 8.2 Above high normal 4. 0-5.6 (%) Final The use of HbA1c to monitor glycemic status is based on normal hemoglobin and HbA composition. This test should not be used in patients with abnormal hemoglobin that affects the half life of the red blood cell or the in vivo glycation rates. Glucose, estimated average 03/08/2024 12:03:13 189 Above high normal <126 (mg/dL) Fabrice weston Performing Location [facility] [place] [address] [facility] [address]
--- OUTSIDE RECORDS SUMMARY | 2024-05-23 23:54 | External Medical Summary | Summary of Care ---
Author Name Unknown Organization [facility] Ambulatory Address [address] [place] [address] Phone Care Team Providers Care Agents' Records Clerk Name Role Phone Clarice Kahn PA-C, Jeferson Primary Care Provider [phone] Provider, Generic External Data Unavailable Unavailable Source [...] except as provided at sections 2.12(c)(5) and 2.65.[facility] Ambulatory Reason for Visit * Reason Comments Foot Pain [place] on foot Encounter Details Date Type Department Care Team (Late st Contact Info) Description 02/08/2024 2:45 PM EST Office Visit Family Med Cheryl [address] [place] [address] Process Expert: Cadence Panda John V, PA-C [address] [place] [address] Cellulitis and abscess of toe of right foot (Primary Dx) Allergies Active Allergy Reactions Criticality Noted Date Comments Meloxicam High Elevates BP Penicillins 12/01/2000 Augmentin= rash documented as of this encounter (statuses as of 02/25/2024) Medications Medication Sig Dispensed Refills Start Date [...] oral Daily PRN, Reported on 12/27/2021 insulin Faith, Disposable, (JENNIE PEN NEEDLE) 32 gauge x 5/32" needle Use daily as directed 30 each 5 05/10/2021 Active fluocinonide (LIDEX) 0.05 % topical cream Apply topically 2 times a day PRN 30 g 3 07/04/2022 Active Blood-Glucose Sensor (DEXCOM G7 SENSOR) misc device Use daily as directed to monitor BS Dx E11.69 3 each 3 12/23/2022 Active Blood-Glucose Meter,Continuous (DEXCOM G7 DECKHAND OYSTER DREDGE) misc misc Use daily as directed to [...] as of this encounter (statuses as of 02/25/2024) Active Problems Problem Noted Date Diagnosed Date Benign hypertension 2018 Diabetes mellitus 2018 Neuropathy 2018 Charcot's arthropathy 2018 documented as of this encounter (statuses as of 02/25/2024) Social History Tobacco Use Types Packs/Day Years [...] of Binge Drinking Not on file 08/21 [facility] - Occupational [...] Chief Complaint Patient presents with Foot Pain [place] on foot HPI: Monie is a 63 [...] Age of Onset Heart Disease Biological Father [place] Diabetes Brother Social History Socioeconomic History Marital [...] Blood sugar one a day Blood-Glucose Meter,Continuous (DEXLumi [place] G7 DECKHAND OYSTER DREDGE) misc misc Use daily as directed to [...] DAILY BEFORE MEAL(S) 15 mL 0 insulin Faith, Disposable, (JENNIE PEN NEEDLE) 32 gauge x [...] Primary documented in this encounter Care Teams Agents' Records Clerk Relationship Specialty Start Date End Date Jeferson Oneil PA-C [address] [facility] [address] [place] [id number] PCP - General Family Medicine 9/24/18 Provider, Generic External Data 01/20/20 documented as of this encounter
--- OUTSIDE RECORDS SUMMARY | 2024-05-23 23:54 | External Medical Summary | Summary of Care ---
Author Name Unknown Organization [facility] Address [address] [place] [address] Phone [phone] Care Team Providers Care Commonwealth Attorney Name Role Phone Jeferson Oneil PA-C Primary Care Provider + Reason for Visit * Reason Comments Outpatient Testing Encounter Details Date Type Department Care Team (Late st Contact Info) Description 03/08/2024 12:00 PM [facility] Laboratory Laboratory Patient Service [address] [phone] [facility] [address] [address] ARF (acute renal failure) ([facility])*; DM coma, type 2 ([facility]); Dyslipidemia, goal LDL below 160; HTN, goal [...] TABLET PER MONTH Active Vitamin D, Ergocalciferol, 28649 UNITS Capsule 1 CAP EVERY OTHER WEEK [...] 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
[2024-05-24] MEDS: ACETAMINOPHEN SUSP 325 MG/10.15 ML UDC PO PRN (02:35)
[2024-05-24 04:01] LABS: INR 1.4 (0.9-1.1); Prothrombin Time 14.5 Seconds (9.0-12.0)
[2024-05-24 04:05] LABS: BUN Creatinine Ratio 44.3 (10-20); Calcium 6.8 mg/dl (8.6-10.3); Creatinine Clr Calc Pharmacy 18.4 ml/min; Magnesium 2.3 mg/dl (1.7-2.4); Phosphorus 2.6 mg/dl (2.5-4.9); Potassium 4.2 mmol/L (3.5-5.1)
[2024-05-24 05:06] LABS: iSTAT Art Bld Gas pCO2 Correct 41 mmHg (35-46); iSTAT Art Bld Gas pH Corrected 7.267 (7.35-7.45); iSTAT Arterial Blood Gas HCO3 18 meg/L (19-24); iSTAT Arterial Blood Gas pCO2 39 mmHg (35-46); iSTAT Arterial Blood Gas pH 7.28 (7.35-7.45); iSTAT Arterial Blood Gas pO2 60 mmHg (80-95); iSTAT Arterial Blood Gas pO2 C 63; iSTAT Carbon Dioxide 20 mmol/L (24-31); iSTAT FiO2 93 %; iSTAT Hematocrit 32 % (37-47); iSTAT Hemoglobin 10.9 g/dl (12.0-16.0); iSTAT Potassium 4.2 mmol/L (3.3-5.0); iSTAT Sample Type Arterial; iSTAT Site Art Line; iSTAT Sodium 130 mmol/L (135-144); iSTAT SpO2 93
--- NOTE | 2024-05-24 08:09 | XRay Report ---
EXAM: XR chest 1V portable CLINICAL HISTORY: resp failure TECHNIQUE: An X-ray image of the chest is obtained in AP projection. COMPARISON: 12/14/2023 FINDINGS: ET tube with its tip about 1cm from lilo, need repositioning. NG tube with its tip seen reaching left infradiaphragmatic Pulmonary Parenchyma: Left lower lung zone peripheral radio-opaque shadow with blunting of left costophrenic angle Bilateral prominent broncho vascular markings Blunting of right costophrenic angle Heart and Mediastinum: Apparent cardiomegaly Bony Thorax: Bony thorax appears intact without fractures or deformities. Soft Tissues: Soft tissues overlying the chest wall are unremarkable. IMPRESSION: 1. ET tube with its tip about 1cm from lilo, need repositioning (new) 2. NG tube with its tip seen reaching left infradiaphragmatic region(new) 3. Left lower lung zone peripheral radio-opaque shadow with blunting of left costophrenic angle, with blunting of right costophrenic angle , could be pleural effusion (new) 4. Bilateral prominent broncho vascular markings , raising possibility of pulmonary congestion (unchanged). 5. Apparent cardiomegaly (unchanged) Electronically signed by Lianna Fuentes 05-24-2024 08:09 AM
[2024-05-24 08:40] LABS: Estimated Average Glucose 275 mg/dl; Hemoglobin A1C 11.2 % (4.5-5.6)
--- NOTE | 2024-05-24 08:48 | Nephrology Progress Note ---
Date of Service May 24, 2024 Assessment & Plan (1) Acute kidney injury: Plan: * JOLENE due to dehydration, hypotension related to DKI, influenza A infection * Patient required IV contrast administration for evaluation of STEMI. Only small vessel disease found on cardiac catheterization 05/23/24 * Hyperkalemia and AGA have corrected w/ volume resuscitation and IV insulin administration * Patient is remains clinically volume contracted. CXR shows mild pulmonary congestion. SaO2 is 94% on 40% FiO2 * POC discussed w/ ICU team this afternoon. No acute indication for HD at this time. Continue supportive medical management. Attempt to wean phenylephrine and reduce IVF * Jardiance, lisinopril have been held * Urine microscopy reviewed. No granular casts reported * Monitor BMP, UO (2) Influenza A: Plan: * Supportive care (3) DKA (diabetic ketoacidosis): Plan: * On insulin gtt * AG has closed * Serum Na correcting as serum glucose improves (4) Shock circulatory: Plan: * On phenylephrine gtt for MAP 65 (5) STEMI (ST elevation myocardial infarction): Plan: * 05/23/24 cardiac cath - only small vessel disease Admission and Anticipated Discharge Date Admission Date: May 23, 2024 Subjective Sedated, mechanically ventilated. UO 1175 last 24 hours. FiO2 weaned to 40%. Remains on phenylephrine gtt. Review of Systems Review of Systems: Unobtainable due to endotracheal tube Physical Exam Constitutional: + ill appearing Eyes: PERRL, conjunctivae normal, anicteric sclerae Neck: trachea midline, no thyromegaly Cardiovascular: RRR, no murmur, no edema Gastrointestinal (Abdomen): Inspection/Auscultation: abdomen normal to inspection and + hypoactive bowel sounds Percussion/Palpation: abdomen soft Skin: no rashes, warm and dry Results & Data Vital Signs (Past 12 Hours) Vital Signs Temp Pulse Resp BP Pulse Ox Pulse Ox O2 Del Method 05/24/24 08:36 37.6 C H 67 20 94 05/24/24 08:35 05/24/24 08:35 Mechanical Vent 05/24/24 08:30 124/60 05/24/24 08:24 37.6 C H 67 20 94 05/24/24 08:15 112/57 L 05/24/24 08:00 129/61 05/24/24 08:00 63 05/24/24 08:00 70 21 95 05/24/24 07:57 37.6 C H 66 20 94 05/24/24 07:51 37.6 C H 67 20 94 05/24/24 07:45 125/58 L 05/24/24 07:42 37.6 C H 66 20 95 05/24/24 07:30 120/59 L 05/24/24 07:30 37.6 C H 67 21 93 05/24/24 07:15 112/58 L 05/24/24 07:06 37.7 C H 67 20 92 05/24/24 05:45 139/62 05/24/24 05:45 139/62 05/24/24 05:45 37.7 C H 68 21 96 05/24/24 05:39 37.7 C H 65 24 94 05/24/24 05:18 37.7 C H 71 17 95 05/24/24 05:15 125/57 L 05/24/24 05:15 125/57 L 05/24/24 05:12 37.7 C H 70 20 95 05/24/24 05:00 105/55 L 05/24/24 05:00 105/55 L 05/24/24 05:00 37.8 C H 67 20 91 05/24/24 04:45 144/58 H 05/24/24 04:45 144/58 H 05/24/24 04:36 37.7 C H 66 20 93 05/24/24 04:30 125/57 L 05/24/24 04:15 37.8 C H 66 20 05/24/24 04:15 117/56 L 05/24/24 04:12 37.8 C H 67 20 92 05/24/24 04:00 126/58 L 05/24/24 04:00 05/24/24 04:00 93 05/24/24 04:00 66 125/43 L 05/24/24 03:54 37.9 C H 67 20 92 05/24/24 03:51 37.9 C H 67 20 92 05/24/24 03:36 37.9 C H 67 20 93 05/24/24 03:15 118/56 L 05/24/24 03:15 118/56 L 05/24/24 03:15 118/56 L 05/24/24 03:15 38.0 C H 68 20 94 05/24/24 03:12 38.0 C H 68 20 95 05/24/24 03:02 68 21 95 05/24/24 02:45 118/58 L 05/24/24 02:42 38.1 C H 69 20 95 05/24/24 02:30 134/60 05/24/24 02:30 38.1 C H 71 20 98 05/24/24 02:24 38.1 C H 69 20 96 05/24/24 02:15 128/57 L 05/24/24 02:00 115/56 L 05/24/24 02:00 115/56 L 05/24/24 02:00 115/56 L 05/24/24 02:00 115/56 L 05/24/24 02:00 115/56 L 05/24/24 02:00 38.2 C H 69 20 99 05/24/24 01:45 38.3 C H 71 20 99 05/24/24 01:45 118/56 L 05/24/24 01:45 118/56 L 05/24/24 01:39 38.3 C H 72 20 98 05/24/24 01:30 111/57 L 05/24/24 01:27 38.3 C H 71 20 99 05/24/24 01:24 38.3 C H 72 20 99 05/24/24 01:15 118/56 L 05/24/24 01:15 118/56 L 05/24/24 01:15 118/56 L 05/24/24 01:12 38.3 C H 75 20 98 05/24/24 01:08 107/80 05/24/24 01:08 107/80 05/24/24 01:06 38.3 C H 70 20 99 05/24/24 01:00 38.3 C H 68 20 99 05/24/24 01:00 121/56 L 05/24/24 01:00 121/56 L 05/24/24 01:00 121/56 L 05/24/24 01:00 121/56 L 05/24/24 00:51 38.3 C H 70 20 99 05/24/24 00:45 118/55 L 05/24/24 00:27 38.3 C H 72 20 99 05/24/24 00:00 05/24/24 00:00 99 05/24/24 00:00 67 120/47 L 05/24/24 00:00 69 05/23/24 23:45 38.1 C H 72 22 99 05/23/24 23:45 135/63 05/23/24 23:45 135/63 05/23/24 23:45 135/63 05/23/24 23:45 135/63 05/23/24 23:30 121/62 05/23/24 23:30 121/62 05/23/24 23:30 121/62 05/23/24 23:30 38.1 C H 72 20 99 05/23/24 23:27 38.1 C H 70 20 99 05/23/24 23:09 71 22 100 05/23/24 23:00 120/60 05/23/24 22:54 38.0 C H 70 20 100 05/23/24 22:45 37.9 C H 70 20 100 05/23/24 22:45 129/60 05/23/24 22:45 129/60 05/23/24 22:33 37.9 C H 71 20 100 05/23/24 22:30 123/62 05/23/24 22:27 37.8 C H 70 19 100 05/23/24 22:18 37.8 C H 71 24 100 05/23/24 22:15 127/61 05/23/24 22:15 127/61 05/23/24 22:06 37.8 C H 71 23 100 05/23/24 22:00 37.8 C H 71 20 100 05/23/24 22:00 135/65 05/23/24 22:00 135/65 05/23/24 22:00 135/65 05/23/24 22:00 135/65 05/23/24 21:45 135/63 05/23/24 21:45 135/63 05/23/24 21:45 135/63 05/23/24 21:42 37.7 C H 71 23 100 05/23/24 21:36 37.7 C H 71 20 100 05/23/24 21:27 37.6 C H 71 20 100 05/23/24 21:15 122/60 05/23/24 21:12 37.6 C H 72 20 100 05/23/24 21:00 37.5 C 71 20 100 05/23/24 21:00 115/60 05/23/24 21:00 115/60 05/23/24 20:54 37.5 C 70 20 100 05/23/24 20:49 21 O2 Del Method FiO2 05/24/24 08:36 05/24/24 08:35 40 05/24/24 08:35 40 05/24/24 08:30 05/24/24 08:24 05/24/24 08:15 05/24/24 08:00 05/24/24 08:00 05/24/24 08:00 40 05/24/24 07:57 05/24/24 07:51 05/24/24 07:45 05/24/24 07:42 05/24/24 07:30 05/24/24 07:30 05/24/24 07:15 05/24/24 07:06 05/24/24 05:45 05/24/24 05:45 05/24/24 05:45 05/24/24 05:39 05/24/24 05:18 05/24/24 05:15 05/24/24 05:15 05/24/24 05:12 05/24/24 05:00 05/24/24 05:00 05/24/24 05:00 05/24/24 04:45 05/24/24 04:45 05/24/24 04:36 05/24/24 04:30 05/24/24 04:15 05/24/24 04:15 05/24/24 04:12 05/24/24 04:00 05/24/24 04:00 40 05/24/24 04:00 Mechanical Vent 05/24/24 04:00 05/24/24 03:54 05/24/24 03:51 05/24/24 03:36 05/24/24 03:15 05/24/24 03:15 05/24/24 03:15 05/24/24 03:15 05/24/24 03:12 05/24/24 03:02 40 05/24/24 02:45 05/24/24 02:42 05/24/24 02:30 05/24/24 02:30 05/24/24 02:24 05/24/24 02:15 05/24/24 02:00 05/24/24 02:00 05/24/24 02:00 05/24/24 02:00 05/24/24 02:00 05/24/24 02:00 05/24/24 01:45 05/24/24 01:45 05/24/24 01:45 05/24/24 01:39 05/24/24 01:30 05/24/24 01:27 05/24/24 01:24 05/24/24 01:15 05/24/24 01:15 05/24/24 01:15 05/24/24 01:12 05/24/24 01:08 05/24/24 01:08 05/24/24 01:06 05/24/24 01:00 05/24/24 01:00 05/24/24 01:00 05/24/24 01:00 05/24/24 01:00 05/24/24 00:51 05/24/24 00:45 05/24/24 00:27 05/24/24 00:00 50 05/24/24 00:00 Mechanical Vent 05/24/24 00:00 05/24/24 00:00 05/23/24 23:45 05/23/24 23:45 05/23/24 23:45 05/23/24 23:45 05/23/24 23:45 05/23/24 23:30 05/23/24 23:30 05/23/24 23:30 05/23/24 23:30 05/23/24 23:27 05/23/24 23:09 50 05/23/24 23:00 05/23/24 22:54 05/23/24 22:45 05/23/24 22:45 05/23/24 22:45 05/23/24 22:33 05/23/24 22:30 05/23/24 22:27 05/23/24 22:18 05/23/24 22:15 05/23/24 22:15 05/23/24 22:06 05/23/24 22:00 05/23/24 22:00 05/23/24 22:00 05/23/24 22:00 05/23/24 22:00 05/23/24 21:45 05/23/24 21:45 05/23/24 21:45 05/23/24 21:42 05/23/24 21:36 05/23/24 21:27 05/23/24 21:15 05/23/24 21:12 05/23/24 21:00 05/23/24 21:00 05/23/24 21:00 05/23/24 20:54 05/23/24 20:49 60 Laboratory Results Laboratory Results - last 24 hr 05/23/24 05/23/24 05/23/24 09:42 09:52 11:03 WBC 14.42 H RBC 4.10 L Hgb 11.0 L POC Hgb Hct 32.0 L POC Hct MCV 78.0 L MCH 26.8 MCHC 34.4 RDW Std Deviation 35.5 L RDW Coeff of Nichol 12.5 Plt Count 238 MPV 12.4 Immature Gran % (Auto) 0.5 Neut % (Auto) 89.2 Lymph % (Auto) 2.4 Clare % (Auto) 7.8 Eos % (Auto) 0.0 Baso % (Auto) 0.1 Neut # (Auto) 12.86 H Lymph # (Auto) 0.35 L Clare # (Auto) 1.13 H Eos # (Auto) 0.00 Baso # (Auto) 0.01 Immature Gran # (Auto) 0.07 PT 15.3 H INR 1.5 H Specimen Type Sample Site POC pH POC pCO2 POC pO2 POC HCO3 POC Total CO2 POC Base Excess O2 Sat Pulse Oximetry ABG pH (Temp Correct) ABG pCO2 (Temp Corrct POC ABG pO2 at Pt Temp POC ABG O2 Sat Alex Test VBG pH 7.02 L 7.02 L VBG pCO2 29 L VBG pO2 53 VBG HCO3 8 VBG O2 Saturation 79.3 VBG Base Excess -22.4 O2 Delivery Device Vent Mode POC FiO2 End Tidal CO2 POC Sodium Sodium 108 L* 114 L* POC Potassium Potassium 6.4 H* 6.3 H* Chloride 71 L 76 L Carbon Dioxide 10 L 13 L Anion Gap 27 H 25 H BUN 168 H 167 H Creatinine 3.87 H 3.76 H Est Cr Clr Drug Dosing Not Reportable 16.4 eGFR 12.48 12.92 BUN/Creatinine Ratio 43.4 H 44.4 H Glucose 1467 H* 1439 H* POC Glucose > 600 H* POC Glucose (other) Estimat Average Glucose Hemoglobin A1c Lactate 2.4 H* Calcium 7.5 L 7.0 L Phosphorus 10.2 H Magnesium 3.1 H 3.1 H Total Bilirubin 0.3 Direct Bilirubin 0.1 AST 82 H ALT 35 Alkaline Phosphatase 92 Troponin I High Sens 6476.9 H* Total Protein 5.3 L Albumin 3.2 L Globulin Albumin/Globulin Ratio Procalcitonin 1.66 H Urine Color Urine Appearance Urine pH Ur Specific [place] Urine Protein Urine Glucose (UA) Urine Ketones Urine Blood Urine Nitrite Urine Bilirubin Urine Urobilinogen Ur Leukocyte Esterase Urine WBC (Auto) Urine RBC (Auto) U Hyaline Cast (Auto) U Epithel Cells (Auto) Urine Bacteria (Auto) Nasal Influ A H1 2008 PCR DETECTED A Nasal Screen MRSA (PCR) Adenovirus (PCR) Not Detected B. pertussis DNA (PCR) Not Detected B.parapertussis DNA PCR Not Detected C. pneumoniae DNA (PCR) Not Detected Coronavirus OC43 (PCR) Not Detected Coronavirus HKU1 (PCR) Not Detected Coronavirus 229E (PCR) Not Detected SARS-CoV-2 (PCR) Not Detected Coronavirus NL63 (PCR) Not Detected Human Metapneumovir PCR Not Detected Influenza Type B (PCR) Not Detected M. pneumoniae (PCR) Not Detected Parainfluenza 1 (PCR) Not Detected Parainfluenza 2 (PCR) Not Detected Parainfluenza 3 (PCR) Not Detected Parainfluenza 4 (PCR) Not Detected RSV (PCR) Not Detected Entero/Rhino (PCR) Not Detected 05/23/24 05/23/24 05/23/24 12:40 13:45 14:02 WBC RBC Hgb POC Hgb Hct POC Hct MCV MCH MCHC RDW Std Deviation RDW Coeff of Nichol Plt Count MPV Immature Gran % (Auto) Neut % (Auto) Lymph % (Auto) Clare % (Auto) Eos % (Auto) Baso % (Auto) Neut # (Auto) Lymph # (Auto) Clare # (Auto) Eos # (Auto) Baso # (Auto) Immature Gran # (Auto) PT INR Specimen Type Sample Site POC pH POC pCO2 POC pO2 POC HCO3 POC Total CO2 POC Base Excess O2 Sat Pulse Oximetry ABG pH (Temp Correct) ABG pCO2 (Temp Corrct POC ABG pO2 at Pt Temp POC ABG O2 Sat Alex Test VBG pH VBG pCO2 VBG pO2 VBG HCO3 VBG O2 Saturation VBG Base Excess O2 Delivery Device Vent Mode POC FiO2 End Tidal CO2 POC Sodium Sodium 122 L POC Potassium Potassium 4.1 D Chloride 82 L Carbon Dioxide 13 L Anion Gap 27 H BUN 157 H Creatinine 3.43 H D Est Cr Clr Drug Dosing 18.0 eGFR 14.42 BUN/Creatinine Ratio 45.8 H Glucose 1201 H* POC Glucose POC Glucose (other) > 700 H* Estimat Average Glucose Hemoglobin A1c Lactate Calcium 7.0 L Phosphorus Magnesium Total Bilirubin 0.3 Direct Bilirubin AST 70 H ALT 30 Alkaline Phosphatase 69 Troponin I High Sens 7517.1 H* Total Protein 3.9 L D Albumin 2.4 L Globulin 1.5 L Albumin/Globulin Ratio 1.6 Procalcitonin Urine Color Urine Appearance Urine pH Ur Specific [place] Urine Protein Urine Glucose (UA) Urine Ketones Urine Blood Urine Nitrite Urine Bilirubin Urine Urobilinogen Ur Leukocyte Esterase Urine WBC (Auto) Urine RBC (Auto) U Hyaline Cast (Auto) U Epithel Cells (Auto) Urine Bacteria (Auto) Nasal Influ A H1 2008 PCR Nasal Screen MRSA (PCR) Negative Adenovirus (PCR) B. pertussis DNA (PCR) B.parapertussis DNA PCR C. pneumoniae DNA (PCR) Coronavirus OC43 (PCR) Coronavirus HKU1 (PCR) Coronavirus 229E (PCR) SARS-CoV-2 (PCR) Coronavirus NL63 (PCR) Human Metapneumovir PCR Influenza Type B (PCR) M. pneumoniae (PCR) Parainfluenza 1 (PCR) Parainfluenza 2 (PCR) Parainfluenza 3 (PCR) Parainfluenza 4 (PCR) RSV (PCR) Entero/Rhino (PCR) 05/23/24 05/23/24 05/23/24 14:21 15:11 16:27 WBC RBC Hgb POC Hgb Hct POC Hct MCV MCH MCHC RDW Std Deviation RDW Coeff of Nichol Plt Count MPV Immature Gran % (Auto) Neut % (Auto) Lymph % (Auto) Clare % (Auto) Eos % (Auto) Baso % (Auto) Neut # (Auto) Lymph # (Auto) Clare # (Auto) Eos # (Auto) Baso # (Auto) Immature Gran # (Auto) PT INR Specimen Type Sample Site POC pH POC pCO2 POC pO2 POC HCO3 POC Total CO2 POC Base Excess O2 Sat Pulse Oximetry ABG pH (Temp Correct) ABG pCO2 (Temp Corrct POC ABG pO2 at Pt Temp POC ABG O2 Sat Alex Test VBG pH 7.10 L VBG pCO2 VBG pO2 VBG HCO3 VBG O2 Saturation VBG Base Excess O2 Delivery Device Vent Mode POC FiO2 End Tidal CO2 POC Sodium Sodium 122 L POC Potassium Potassium 3.9 Chloride 86 L Carbon Dioxide 12 L Anion Gap 24 H BUN 155 H Creatinine 3.28 H Est Cr Clr Drug Dosing 18.9 eGFR 15.22 BUN/Creatinine Ratio 47.3 H Glucose 1118 H* 1053 H* POC Glucose POC Glucose (other) Estimat Average Glucose Hemoglobin A1c Lactate 2.1 H* Calcium 6.9 L Phosphorus 7.4 H Magnesium 2.9 H Total Bilirubin Direct Bilirubin AST ALT Alkaline Phosphatase Troponin I High Sens Total Protein Albumin Globulin Albumin/Globulin Ratio Procalcitonin Urine Color Yellow Urine Appearance Cloudy A Urine pH 5.0 Ur Specific [place] 1.025 Urine Protein Negative Urine Glucose (UA) 3+ H Urine Ketones Trace H Urine Blood 1+ H Urine Nitrite Negative Urine Bilirubin Negative Urine Urobilinogen Negative Ur Leukocyte Esterase Negative Urine WBC (Auto) 6-10 H Urine RBC (Auto) 0-2 U Hyaline Cast (Auto) 11-20 H U Epithel Cells (Auto) 11-20 H Urine Bacteria (Auto) None Seen Nasal Influ A H1 2008 PCR Nasal Screen MRSA (PCR) Adenovirus (PCR) B. pertussis DNA (PCR) B.parapertussis DNA PCR C. pneumoniae DNA (PCR) Coronavirus OC43 (PCR) Coronavirus HKU1 (PCR) Coronavirus 229E (PCR) SARS-CoV-2 (PCR) Coronavirus NL63 (PCR) Human Metapneumovir PCR Influenza Type B (PCR) M. pneumoniae (PCR) Parainfluenza 1 (PCR) Parainfluenza 2 (PCR) Parainfluenza 3 (PCR) Parainfluenza 4 (PCR) RSV (PCR) Entero/Rhino (PCR) 05/23/24 05/23/24 05/23/24 16:34 17:15 18:16 WBC RBC Hgb POC Hgb Hct POC Hct MCV MCH MCHC RDW Std Deviation RDW Coeff of Nichol Plt Count MPV Immature Gran % (Auto) Neut % (Auto) Lymph % (Auto) Clare % (Auto) Eos % (Auto) Baso % (Auto) Neut # (Auto) Lymph # (Auto) Clare # (Auto) Eos # (Auto) Baso # (Auto) Immature Gran # (Auto) PT INR Specimen Type Sample Site POC pH POC pCO2 POC pO2 POC HCO3 POC Total CO2 POC Base Excess O2 Sat Pulse Oximetry ABG pH (Temp Correct) ABG pCO2 (Temp Corrct POC ABG pO2 at Pt Temp POC ABG O2 Sat Alex Test VBG pH VBG pCO2 VBG pO2 VBG HCO3 VBG O2 Saturation VBG Base Excess O2 Delivery Device Vent Mode POC FiO2 End Tidal CO2 POC Sodium Sodium POC Potassium Potassium Chloride Carbon Dioxide Anion Gap BUN Creatinine Est Cr Clr Drug Dosing eGFR BUN/Creatinine Ratio Glucose 1060 H* 1016 H* 976 H* POC Glucose POC Glucose (other) Estimat Average Glucose Hemoglobin A1c Lactate Calcium Phosphorus Magnesium Total Bilirubin Direct Bilirubin AST ALT Alkaline Phosphatase Troponin I High Sens Total Protein Albumin Globulin Albumin/Globulin Ratio Procalcitonin Urine Color Urine Appearance Urine pH Ur Specific [place] Urine Protein Urine Glucose (UA) Urine Ketones Urine Blood Urine Nitrite Urine Bilirubin Urine Urobilinogen Ur Leukocyte Esterase Urine WBC (Auto) Urine RBC (Auto) U Hyaline Cast (Auto) U Epithel Cells (Auto) Urine Bacteria (Auto) Nasal Influ A H1 2008 PCR Nasal Screen MRSA (PCR) Adenovirus (PCR) B. pertussis DNA (PCR) B.parapertussis DNA PCR C. pneumoniae DNA (PCR) Coronavirus OC43 (PCR) Coronavirus HKU1 (PCR) Coronavirus 229E (PCR) SARS-CoV-2 (PCR) Coronavirus NL63 (PCR) Human Metapneumovir PCR Influenza Type B (PCR) M. pneumoniae (PCR) Parainfluenza 1 (PCR) Parainfluenza 2 (PCR) Parainfluenza 3 (PCR) Parainfluenza 4 (PCR) RSV (PCR) Entero/Rhino (PCR) 05/23/24 05/23/24 05/23/24 19:03 19:03 20:18 WBC RBC Hgb POC Hgb Hct POC Hct MCV MCH MCHC RDW Std Deviation RDW Coeff of Nichol Plt Count MPV Immature Gran % (Auto) Neut % (Auto) Lymph % (Auto) Clare % (Auto) Eos % (Auto) Baso % (Auto) Neut # (Auto) Lymph # (Auto) Clare # (Auto) Eos # (Auto) Baso # (Auto) Immature Gran # (Auto) PT INR Specimen Type Sample Site POC pH POC pCO2 POC pO2 POC HCO3 POC Total CO2 POC Base Excess O2 Sat Pulse Oximetry ABG pH (Temp Correct) ABG pCO2 (Temp Corrct POC ABG pO2 at Pt Temp POC ABG O2 Sat Alex Test VBG pH 7.24 L VBG pCO2 VBG pO2 VBG HCO3 VBG O2 Saturation VBG Base Excess O2 Delivery Device Vent Mode POC FiO2 End Tidal CO2 POC Sodium Sodium 121 L POC Potassium Potassium 3.8 Chloride 87 L Carbon Dioxide 17 L Anion Gap 17 H BUN 164 H Creatinine 3.63 H D Est Cr Clr Drug Dosing 17.0 eGFR 13.48 BUN/Creatinine Ratio 45.2 H Glucose 943 H* 942 H* 870 H* POC Glucose POC Glucose (other) Estimat Average Glucose Hemoglobin A1c Lactate Calcium 7.1 L Phosphorus 5.0 H D Magnesium 2.6 H Total Bilirubin Direct Bilirubin AST ALT Alkaline Phosphatase Troponin I High Sens Total Protein Albumin Globulin Albumin/Globulin Ratio Procalcitonin Urine Color Urine Appearance Urine pH Ur Specific [place] Urine Protein Urine Glucose (UA) Urine Ketones Urine Blood Urine Nitrite Urine Bilirubin Urine Urobilinogen Ur Leukocyte Esterase Urine WBC (Auto) Urine RBC (Auto) U Hyaline Cast (Auto) U Epithel Cells (Auto) Urine Bacteria (Auto) Nasal Influ A H1 2008 PCR Nasal Screen MRSA (PCR) Adenovirus (PCR) B. pertussis DNA (PCR) B.parapertussis DNA PCR C. pneumoniae DNA (PCR) Coronavirus OC43 (PCR) Coronavirus HKU1 (PCR) Coronavirus 229E (PCR) SARS-CoV-2 (PCR) Coronavirus NL63 (PCR) Human Metapneumovir PCR Influenza Type B (PCR) M. pneumoniae (PCR) Parainfluenza 1 (PCR) Parainfluenza 2 (PCR) Parainfluenza 3 (PCR) Parainfluenza 4 (PCR) RSV (PCR) Entero/Rhino (PCR) 05/23/24 05/23/24 05/23/24 21:19 22:44 22:46 WBC RBC Hgb POC Hgb Hct POC Hct MCV MCH MCHC RDW Std Deviation RDW Coeff of Nichol Plt Count MPV Immature Gran % (Auto) Neut % (Auto) Lymph % (Auto) Clare % (Auto) Eos % (Auto) Baso % (Auto) Neut # (Auto) Lymph # (Auto) Clare # (Auto) Eos # (Auto) Baso # (Auto) Immature Gran # (Auto) PT INR Specimen Type Sample Site POC pH POC pCO2 POC pO2 POC HCO3 POC Total CO2 POC Base Excess O2 Sat Pulse Oximetry ABG pH (Temp Correct) ABG pCO2 (Temp Corrct POC ABG pO2 at Pt Temp POC ABG O2 Sat Alex Test VBG pH 7.34 L VBG pCO2 VBG pO2 VBG HCO3 VBG O2 Saturation VBG Base Excess O2 Delivery Device Vent Mode POC FiO2 End Tidal CO2 POC Sodium Sodium 123 L POC Potassium Potassium 4.0 Chloride 92 L Carbon Dioxide 21 Anion Gap 10 BUN 157 H Creatinine 3.46 H Est Cr Clr Drug Dosing 17.9 eGFR 14.27 BUN/Creatinine Ratio 45.4 H Glucose 825 H* 761 H* POC Glucose POC Glucose (other) Estimat Average Glucose Hemoglobin A1c Lactate Calcium 7.0 L Phosphorus 3.5 D Magnesium 2.4 Total Bilirubin Direct Bilirubin AST ALT Alkaline Phosphatase Troponin I High Sens Total Protein Albumin Globulin Albumin/Globulin Ratio Procalcitonin Urine Color Urine Appearance Urine pH Ur Specific [place] Urine Protein Urine Glucose (UA) Urine Ketones Urine Blood Urine Nitrite Urine Bilirubin Urine Urobilinogen Ur Leukocyte Esterase Urine WBC (Auto) Urine RBC (Auto) U Hyaline Cast (Auto) U Epithel Cells (Auto) Urine Bacteria (Auto) Nasal Influ A H1 2008 PCR Nasal Screen MRSA (PCR) Adenovirus (PCR) B. pertussis DNA (PCR) B.parapertussis DNA PCR C. pneumoniae DNA (PCR) Coronavirus OC43 (PCR) Coronavirus HKU1 (PCR) Coronavirus 229E (PCR) SARS-CoV-2 (PCR) Coronavirus NL63 (PCR) Human Metapneumovir PCR Influenza Type B (PCR) M. pneumoniae (PCR) Parainfluenza 1 (PCR) Parainfluenza 2 (PCR) Parainfluenza 3 (PCR) Parainfluenza 4 (PCR) RSV (PCR) Entero/Rhino (PCR) 05/24/24 05/24/24 05/24/24 00:50 02:13 03:10 WBC RBC Hgb POC Hgb Hct POC Hct MCV MCH MCHC RDW Std Deviation RDW Coeff of Nichol Plt Count MPV Immature Gran % (Auto) Neut % (Auto) Lymph % (Auto) Clare % (Auto) Eos % (Auto) Baso % (Auto) Neut # (Auto) Lymph # (Auto) Clare # (Auto) Eos # (Auto) Baso # (Auto) Immature Gran # (Auto) PT 14.5 H INR 1.4 H Specimen Type Sample Site POC pH POC pCO2 POC pO2 POC HCO3 POC Total CO2 POC Base Excess O2 Sat Pulse Oximetry ABG pH (Temp Correct) ABG pCO2 (Temp Corrct POC ABG pO2 at Pt Temp POC ABG O2 Sat Alex Test VBG pH 7.33 L VBG pCO2 VBG pO2 VBG HCO3 VBG O2 Saturation VBG Base Excess O2 Delivery Device Vent Mode POC FiO2 End Tidal CO2 POC Sodium Sodium 127 L POC Potassium Potassium 4.2 Chloride 97 L Carbon Dioxide 21 Anion Gap 9 BUN 149 H Creatinine 3.36 H Est Cr Clr Drug Dosing 18.4 eGFR 14.78 BUN/Creatinine Ratio 44.3 H Glucose 533 H* POC Glucose POC Glucose (other) 633 H* 566 H* Estimat Average Glucose 275 Hemoglobin A1c 11.2 H Lactate Calcium 6.8 L Phosphorus 2.6 Magnesium 2.3 Total Bilirubin Direct Bilirubin AST ALT Alkaline Phosphatase Troponin I High Sens Total Protein Albumin Globulin Albumin/Globulin Ratio Procalcitonin Urine Color Urine Appearance Urine pH Ur Specific [place] Urine Protein Urine Glucose (UA) Urine Ketones Urine Blood Urine Nitrite Urine Bilirubin Urine Urobilinogen Ur Leukocyte Esterase Urine WBC (Auto) Urine RBC (Auto) U Hyaline Cast (Auto) U Epithel Cells (Auto) Urine Bacteria (Auto) Nasal Influ A H1 2008 PCR Nasal Screen MRSA (PCR) Adenovirus (PCR) B. pertussis DNA (PCR) B.parapertussis DNA PCR C. pneumoniae DNA (PCR) Coronavirus OC43 (PCR) Coronavirus HKU1 (PCR) Coronavirus 229E (PCR) SARS-CoV-2 (PCR) Coronavirus NL63 (PCR) Human Metapneumovir PCR Influenza Type B (PCR) M. pneumoniae (PCR) Parainfluenza 1 (PCR) Parainfluenza 2 (PCR) Parainfluenza 3 (PCR) Parainfluenza 4 (PCR) RSV (PCR) Entero/Rhino (PCR) 05/24/24 05/24/2425 03:22 04:31 04:56 WBC RBC Hgb POC Hgb 10.9 L Hct POC Hct 32 L MCV MCH MCHC RDW Std Deviation RDW Coeff of Nichol Plt Count MPV Immature Gran % (Auto) Neut % (Auto) Lymph % (Auto) Clare % (Auto) Eos % (Auto) Baso % (Auto) Neut # (Auto) Lymph # (Auto) Clare # (Auto) Eos # (Auto) Baso # (Auto) Immature Gran # (Auto) PT INR Specimen Type Arterial Sample Site Art Line POC pH 7.28 L POC pCO2 39 POC pO2 60 L POC HCO3 18 L POC Total CO2 20 L POC Base Excess -8.0 O2 Sat Pulse Oximetry 93 ABG pH (Temp Correct) 7.267 L ABG pCO2 (Temp Corrct 41 POC ABG pO2 at Pt Temp 63 POC ABG O2 Sat 87.0 L Alex Test NA VBG pH VBG pCO2 VBG pO2 VBG HCO3 VBG O2 Saturation VBG Base Excess O2 Delivery Device Ventilator Vent Mode AC POC FiO2 93 End Tidal CO2 35 POC Sodium 130 L Sodium POC Potassium 4.2 Potassium Chloride Carbon Dioxide Anion Gap BUN Creatinine Est Cr Clr Drug Dosing eGFR BUN/Creatinine Ratio Glucose POC Glucose POC Glucose (other) 526 H* 476 H* Estimat Average Glucose Hemoglobin A1c Lactate Calcium Phosphorus Magnesium Total Bilirubin Direct Bilirubin AST ALT Alkaline Phosphatase Troponin I High Sens Total Protein Albumin Globulin Albumin/Globulin Ratio Procalcitonin Urine Color Urine Appearance Urine pH Ur Specific [place] Urine Protein Urine Glucose (UA) Urine Ketones Urine Blood Urine Nitrite Urine Bilirubin Urine Urobilinogen Ur Leukocyte Esterase Urine WBC (Auto) Urine RBC (Auto) U Hyaline Cast (Auto) U Epithel Cells (Auto) Urine Bacteria (Auto) Nasal Influ A H1 2008 PCR Nasal Screen MRSA (PCR) Adenovirus (PCR) B. pertussis DNA (PCR) B.parapertussis DNA PCR C. pneumoniae DNA (PCR) Coronavirus OC43 (PCR) Coronavirus HKU1 (PCR) Coronavirus 229E (PCR) SARS-CoV-2 (PCR) Coronavirus NL63 (PCR) Human Metapneumovir PCR Influenza Type B (PCR) M. pneumoniae (PCR) Parainfluenza 1 (PCR) Parainfluenza 2 (PCR) Parainfluenza 3 (PCR) Parainfluenza 4 (PCR) RSV (PCR) Entero/Rhino (PCR) 05/24/24 05/24/24 05/24/24 05:16 06:21 07:13 WBC RBC Hgb POC Hgb Hct POC Hct MCV MCH MCHC RDW Std Deviation RDW Coeff of Nichol Plt Count MPV Immature Gran % (Auto) Neut % (Auto) Lymph % (Auto) Clare % (Auto) Eos % (Auto) Baso % (Auto) Neut # (Auto) Lymph # (Auto) Clare # (Auto) Eos # (Auto) Baso # (Auto) Immature Gran # (Auto) PT INR Specimen Type Sample Site POC pH POC pCO2 POC pO2 POC HCO3 POC Total CO2 POC Base Excess O2 Sat Pulse Oximetry ABG pH (Temp Correct) ABG pCO2 (Temp Corrct POC ABG pO2 at Pt Temp POC ABG O2 Sat Alex Test VBG pH 7.30 L VBG pCO2 VBG pO2 VBG HCO3 VBG O2 Saturation VBG Base Excess O2 Delivery Device Vent Mode POC FiO2 End Tidal CO2 POC Sodium Sodium 130 L POC Potassium Potassium 4.1 Chloride 101 Carbon Dioxide 21 Anion Gap 8 BUN 138 H Creatinine 3.12 H Est Cr Clr Drug Dosing 20.3 eGFR 16.16 BUN/Creatinine Ratio 44.2 H Glucose 370 H* POC Glucose POC Glucose (other) 448 H* 403 H* Estimat Average Glucose Hemoglobin A1c Lactate Calcium 6.8 L Phosphorus 2.1 L Magnesium 2.2 Total Bilirubin Direct Bilirubin AST ALT Alkaline Phosphatase Troponin I High Sens Total Protein Albumin Globulin Albumin/Globulin Ratio Procalcitonin Urine Color Urine Appearance Urine pH Ur Specific [place] Urine Protein Urine Glucose (UA) Urine Ketones Urine Blood Urine Nitrite Urine Bilirubin Urine Urobilinogen Ur Leukocyte Esterase Urine WBC (Auto) Urine RBC (Auto) U Hyaline Cast (Auto) U Epithel Cells (Auto) Urine Bacteria (Auto) Nasal Influ A H1 2009 PCR Nasal Screen MRSA (PCR) Adenovirus (PCR) B. pertussis DNA (PCR) B.parapertussis DNA PCR C. pneumoniae DNA (PCR) Coronavirus OC43 (PCR) Coronavirus HKU1 (PCR) Coronavirus 229E (PCR) SARS-CoV-2 (PCR) Coronavirus NL63 (PCR) Human Metapneumovir PCR Influenza Type B (PCR) M. pneumoniae (PCR) Parainfluenza 1 (PCR) Parainfluenza 2 (PCR) Parainfluenza 3 (PCR) Parainfluenza 4 (PCR) RSV (PCR) Entero/Rhino (PCR) 05/24/24 05/24/24 07:19 08:29 WBC RBC Hgb POC Hgb Hct POC Hct MCV MCH MCHC RDW Std Deviation RDW Coeff of Nichol Plt Count MPV Immature Gran % (Auto) Neut % (Auto) Lymph % (Auto) Clare % (Auto) Eos % (Auto) Baso % (Auto) Neut # (Auto) Lymph # (Auto) Clare # (Auto) Eos # (Auto) Baso # (Auto) Immature Gran # (Auto) PT INR Specimen Type Sample Site POC pH POC pCO2 POC pO2 POC HCO3 POC Total CO2 POC Base Excess O2 Sat Pulse Oximetry ABG pH (Temp Correct) ABG pCO2 (Temp Corrct POC ABG pO2 at Pt Temp POC ABG O2 Sat Alex Test VBG pH VBG pCO2 VBG pO2 VBG HCO3 VBG O2 Saturation VBG Base Excess O2 Delivery Device Vent Mode POC FiO2 End Tidal CO2 POC Sodium Sodium POC Potassium Potassium Chloride Carbon Dioxide Anion Gap BUN Creatinine Est Cr Clr Drug Dosing eGFR BUN/Creatinine Ratio Glucose POC Glucose POC Glucose (other) 369 H* 325 H Estimat Average Glucose Hemoglobin A1c Lactate Calcium Phosphorus Magnesium Total Bilirubin Direct Bilirubin AST ALT Alkaline Phosphatase Troponin I High Sens Total Protein Albumin Globulin Albumin/Globulin Ratio Procalcitonin Urine Color Urine Appearance Urine pH Ur Specific [place] Urine Protein Urine Glucose (UA) Urine Ketones Urine Blood Urine Nitrite Urine Bilirubin Urine Urobilinogen Ur Leukocyte Esterase Urine WBC (Auto) Urine RBC (Auto) U Hyaline Cast (Auto) U Epithel Cells (Auto) Urine Bacteria (Auto) Nasal Influ A H1 2008 PCR Nasal Screen MRSA (PCR) Adenovirus (PCR) B. pertussis DNA (PCR) B.parapertussis DNA PCR C. pneumoniae DNA (PCR) Coronavirus OC43 (PCR) Coronavirus HKU1 (PCR) Coronavirus 229E (PCR) SARS-CoV-2 (PCR) Coronavirus NL63 (PCR) Human Metapneumovir PCR Influenza Type B (PCR) M. pneumoniae (PCR) Parainfluenza 1 (PCR) Parainfluenza 2 (PCR) Parainfluenza 3 (PCR) Parainfluenza 4 (PCR) RSV (PCR) Entero/Rhino (PCR) PG Care Time/CCT Total # of Minutes Spent Total Time Spent with Patient: Total time spent is greater than 50% in coordination of care (as documented) at patient's floor/unit and/or counseling patient: Coding Level of Care Code 41538 SUB INP/OBS CARE 3/50MIN Diagnoses Acute kidney injury N17.9 Influenza A J10.1 DKA (diabetic ketoacidosis) E11.10 Shock circulatory R57.9 STEMI (ST elevation myocardial infarction) I21.3
[2024-05-24] MEDS ORDERED: VANCOMYCIN CONSULT ACTIVE PRN (08:53)
[2024-05-24] MEDS ORDERED: VANCOMYCIN HCL 2,500 MG in SODIUM CHLORIDE 0.9% 500 ML IV ONE (08:53)
[2024-05-24 08:54] LABS: BUN Creatinine Ratio 44.2 (10-20); Calcium 6.8 mg/dl (8.6-10.3); Creatinine Clr Calc Pharmacy 20.3 ml/min; Magnesium 2.2 mg/dl (1.7-2.4); Phosphorus 2.1 mg/dl (2.5-4.9); Potassium 4.1 mmol/L (3.5-5.1)
--- NOTE | 2024-05-24 08:56 | Critical Care Progress Note ---
Date of Service May 24, 2024 Assessment & Plan (1) Metabolic encephalopathy: (2) Acute kidney injury: (3) Sepsis: Plan Impression: 64-year-old female with diabetes and peripheral vascular disease with history of recent osteomyelitis presents now with severe DKA, acute renal f ailure, and shock with elevated troponin and ST elevations on EKG. 24-hour events: Patient presented to the emergency room altered. She was intubated. Central lines and arterial lines were placed. She was taken to the [facility]. Angiography demonstrated no acute occlusion but diffuse coronary disease. She received aggressive fluid resuscitation was initiated on insulin for severe DKA with lactic acidosis. Pressors were required. She is on minimal vent settings this morning and is still on Joseluis-Synephrine to maintain mean arterial pressures. Recommendation: 1. Neurologic: Encephalopathy likely metabolic in nature. Currently sedated with fentanyl and Versed. Defer additional imaging of her neural axis pending stabilization of her metabolic disarray. If she has continued encephalopathy after her metabolic issues are resolved, additional imaging and workup might be required. Sedation break today 2. Cardiovascular: EKG with ST elevation. Cardiac catheterization discussed with Dr. Dick. No occult culprit lesions identified but diffuse disease. Medical management recommended. She was transiently in A-fib yesterday associated with norepinephrine but appears to be in normal sinus rhythm currently. No heparin. Await formal echocardiogram. Continue medical management. Additional medications per cardiology 3. Pulmonary: Intubated due to to hemodynamic instability. Flu a positive. Sputum culture now growing staph. Possible post influenza staph pneumonia versus colonization. Will place on vancomycin for now given her elevated procalcitonin. Follow white blood cell count and fever curve. Await resolution of her metabolic issues before determining timing for vent liberation. Bronchodilators as needed 4. Renal: Acute renal failure: Suspect ATN. Associated with hyperkalemia. Nephrology consultation pending. Serum creatinine stable. Potassium better. Remains with not anion gap acidosis this morning, administer additional bicarb. Await formal nephrology evaluation. Replace calcium. Phosphorus is decreased with insulin administration. 5. GI: No current issues. Will initiate trophic enteral tube feeding today. PPI given hemodynamic instability. 6. Endocrine: Severe DKA: Patient is noncompliant in the outpatient setting. Hemoglobin A1c elevated at 11. Gap is closed. Her insulin requirement is quite high. Kash contraindicated in the setting of renal failure and lactic acidosis. May consider initiation of long-acting subcutaneous insulin and attempting to wean off of the drip. 7. ID: Patient with recent osteomyelitis. Blood cultures today no growth to date. Continue empiric Zosyn for now. Added vancomycin given staph in respiratory cultures pending sensitivities. Supportive care for influenza. 8. Heme-onc: No current issues. DVT prophylaxis with heparin Patient is critically ill at this point time with multiorgan system dysfunction. Significant possibility of clinical decline and/or . A total of 36 minutes in critical care time was spent in evaluation management coordination of care for this patient exclusive of procedures. Admission and Anticipated Discharge Date Admission Date: May 23, 2024 Subjective Intubated and sedated. Review of Systems Review of Systems: Unobtainable due to endotracheal tube Physical Exam Constitutional: + obese and + mechanically ventilated Neck: trachea midline, no thyromegaly Respiratory: no respiratory distress, no labored breathing and not tachypneic Auscultation: + rhonchi; no wheezes Cardiovascular: RRR, no murmur, no edema Gastrointestinal (Abdomen): normal bowel sounds, soft, nontender, no hepatosplenomegaly Musculoskeletal: Extremities: extremities normal to inspection Skin: no rashes, warm and dry Lymphatic: no cervical lymphadenopathy Results & Data Results & Data Vital Signs (Past 12 Hours) Vital Signs Temp Pulse Resp BP Pulse Ox Pulse Ox O2 Del Method 05/24/24 08:36 37.6 C H 67 20 94 05/24/24 08:35 05/24/24 08:35 Mechanical Vent 05/24/24 08:30 124/60 05/24/24 08:24 37.6 C H 67 20 94 05/24/24 08:15 112/57 L 05/24/24 08:00 129/61 05/24/24 08:00 63 05/24/24 08:00 70 21 95 05/24/24 07:57 37.6 C H 66 20 94 05/24/24 07:51 37.6 C H 67 20 94 05/24/24 07:45 125/58 L 05/24/24 07:42 37.6 C H 66 20 95 05/24/24 07:30 120/59 L 05/24/24 07:30 37.6 C H 67 21 93 05/24/24 07:15 112/58 L 05/24/24 07:06 37.7 C H 67 20 92 05/24/24 05:45 139/62 05/24/24 05:45 139/62 05/24/24 05:45 37.7 C H 68 21 96 05/24/24 05:39 37.7 C H 65 24 94 05/24/24 05:18 37.7 C H 71 17 95 05/24/24 05:15 125/57 L 05/24/24 05:15 125/57 L 05/24/24 05:12 37.7 C H 70 20 95 05/24/24 05:00 105/55 L 05/24/24 05:00 105/55 L 05/24/24 05:00 37.8 C H 67 20 91 05/24/24 04:45 144/58 H 05/24/24 04:45 144/58 H 05/24/24 04:36 37.7 C H 66 20 93 05/24/24 04:30 125/57 L 05/24/24 04:15 37.8 C H 66 20 92 05/24/24 04:15 117/56 L 05/24/24 04:12 37.8 C H 67 20 92 05/24/24 04:00 126/58 L 05/24/24 04:00 05/24/24 04:00 93 05/24/24 04:00 66 125/43 L 05/24/24 03:54 37.9 C H 67 20 92 05/24/24 03:51 37.9 C H 67 20 92 05/24/24 03:36 37.9 C H 67 20 93 05/24/24 03:15 118/56 L 05/24/24 03:15 118/56 L 05/24/24 03:15 118/56 L 05/24/24 03:15 38.0 C H 68 20 94 05/24/24 03:12 38.0 C H 68 20 95 05/24/24 03:02 68 21 95 05/24/24 02:45 118/58 L 05/24/24 02:42 38.1 C H 69 20 95 05/24/24 02:30 134/60 05/24/24 02:30 38.1 C H 71 20 98 05/24/24 02:24 38.1 C H 69 20 96 05/24/24 02:15 128/57 L 05/24/24 02:00 115/56 L 05/24/24 02:00 115/56 L 05/24/24 02:00 115/56 L 05/24/24 02:00 115/56 L 05/24/24 02:00 115/56 L 05/24/24 02:00 38.2 C H 69 20 99 05/24/24 01:45 38.3 C H 71 20 99 05/24/24 01:45 118/56 L 05/24/24 01:45 118/56 L 05/24/24 01:39 38.3 C H 72 20 98 05/24/24 01:30 111/57 L 05/24/24 01:27 38.3 C H 71 20 99 05/24/24 01:24 38.3 C H 72 20 99 05/24/24 01:15 118/56 L 05/24/24 01:15 118/56 L 05/24/24 01:15 118/56 L 05/24/24 01:12 38.3 C H 75 20 98 05/24/24 01:08 107/80 05/24/24 01:08 107/80 05/24/24 01:06 38.3 C H 70 20 99 05/24/24 01:00 38.3 C H 68 20 99 05/24/24 01:00 121/56 L 05/24/24 01:00 121/56 L 05/24/24 01:00 121/56 L 05/24/24 01:00 121/56 L 05/24/24 00:51 38.3 C H 70 20 99 05/24/24 00:45 118/55 L 05/24/24 00:27 38.3 C H 72 20 99 05/24/24 00:00 05/24/24 00:00 99 05/24/24 00:00 67 120/47 L 05/24/24 00:00 69 05/23/24 23:45 38.1 C H 72 22 99 05/23/24 23:45 135/63 05/23/24 23:45 135/63 05/23/24 23:45 135/63 05/23/24 23:45 135/63 05/23/24 23:30 121/62 05/23/24 23:30 121/62 05/23/24 23:30 121/62 05/23/24 23:30 38.1 C H 72 20 99 05/23/24 23:27 38.1 C H 70 20 99 05/23/24 23:09 71 22 100 05/23/24 23:00 120/60 05/23/24 22:54 38.0 C H 70 20 100 05/23/24 22:45 37.9 C H 70 20 100 05/23/24 22:45 129/60 05/23/24 22:45 129/60 05/23/24 22:33 37.9 C H 71 20 100 05/23/24 22:30 123/62 05/23/24 22:27 37.8 C H 70 19 100 05/23/24 22:18 37.8 C H 71 24 100 05/23/24 22:15 127/61 05/23/24 22:15 127/61 05/23/24 22:06 37.8 C H 71 23 100 05/23/24 22:00 37.8 C H 71 20 100 05/23/24 22:00 135/65 05/23/24 22:00 135/65 05/23/24 22:00 135/65 05/23/24 22:00 135/65 05/23/24 21:45 135/63 05/23/24 21:45 135/63 05/23/24 21:45 135/63 05/23/24 21:42 37.7 C H 71 23 100 05/23/24 21:36 37.7 C H 71 20 100 05/23/24 21:27 37.6 C H 71 20 100 05/23/24 21:15 122/60 05/23/24 21:12 37.6 C H 72 20 100 05/23/24 21:00 37.5 C 71 20 100 05/23/24 21:00 115/60 05/23/24 21:00 115/60 O2 Del Method FiO2 05/24/24 08:36 05/24/24 08:35 40 05/24/24 08:35 40 05/24/24 08:30 05/24/24 08:24 05/24/24 08:15 05/24/24 08:00 05/24/24 08:00 05/24/24 08:00 40 05/24/24 07:57 05/24/24 07:51 05/24/24 07:45 05/24/24 07:42 05/24/24 07:30 05/24/24 07:30 05/24/24 07:15 05/24/24 07:06 05/24/24 05:45 05/24/24 05:45 05/24/24 05:45 05/24/24 05:39 05/24/24 05:18 05/24/24 05:15 05/24/24 05:15 05/24/24 05:12 05/24/24 05:00 05/24/24 05:00 05/24/24 05:00 05/24/24 04:45 05/24/24 04:45 05/24/24 04:36 05/24/24 04:30 05/24/24 04:15 05/24/24 04:15 05/24/24 04:12 05/24/24 04:00 05/24/24 04:00 40 05/24/24 04:00 Mechanical Vent 05/24/24 04:00 05/24/24 03:54 05/24/24 03:51 05/24/24 03:36 05/24/24 03:15 05/24/24 03:15 05/24/24 03:15 05/24/24 03:15 05/24/24 03:12 05/24/24 03:02 40 05/24/24 02:45 05/24/24 02:42 05/24/24 02:30 05/24/24 02:30 05/24/24 02:24 05/24/24 02:15 05/24/24 02:00 05/24/24 02:00 05/24/24 02:00 05/24/24 02:00 05/24/24 02:00 05/24/24 02:00 05/24/24 01:45 05/24/24 01:45 05/24/24 01:45 05/24/24 01:39 05/24/24 01:30 05/24/24 01:27 05/24/24 01:24 05/24/24 01:15 05/24/24 01:15 05/24/24 01:15 05/24/24 01:12 05/24/24 01:08 05/24/24 01:08 05/24/24 01:06 05/24/24 01:00 05/24/24 01:00 05/24/24 01:00 05/24/24 01:00 05/24/24 01:00 05/24/24 00:51 05/24/24 00:45 05/24/24 00:27 05/24/24 00:00 50 05/24/24 00:00 Mechanical Vent 05/24/24 00:00 05/24/24 00:00 05/23/24 23:45 05/23/24 23:45 05/23/24 23:45 05/23/24 23:45 05/23/24 23:45 05/23/24 23:30 05/23/24 23:30 05/23/24 23:30 05/23/24 23:30 05/23/24 23:27 05/23/24 23:09 50 05/23/24 23:00 05/23/24 22:54 05/23/24 22:45 05/23/24 22:45 05/23/24 22:45 05/23/24 22:33 05/23/24 22:30 05/23/24 22:27 05/23/24 22:18 05/23/24 22:15 05/23/24 22:15 05/23/24 22:06 05/23/24 22:00 05/23/24 22:00 05/23/24 22:00 05/23/24 22:00 05/23/24 22:00 05/23/24 21:45 05/23/24 21:45 05/23/24 21:45 05/23/24 21:42 05/23/24 21:36 05/23/24 21:27 05/23/24 21:15 05/23/24 21:12 05/23/24 21:00 05/23/24 21:00 05/23/24 21:00 Critical Care Results & Data Vital Signs (Past 12 Hours) Vital Signs Temp Pulse Resp BP Pulse Ox Pulse Ox O2 Del Method 05/24/24 08:36 37.6 C H 67 20 94 05/24/24 08:35 05/24/24 08:35 Mechanical Vent 05/24/24 08:30 124/60 05/24/24 08:24 37.6 C H 67 20 94 05/24/24 08:15 112/57 L 05/24/24 08:00 129/61 05/24/24 08:00 63 05/24/24 08:00 70 21 95 05/24/24 07:57 37.6 C H 66 20 94 05/24/24 07:51 37.6 C H 67 20 94 05/24/24 07:45 125/58 L 05/24/24 07:42 37.6 C H 66 20 95 05/24/24 07:30 120/59 L 05/24/24 07:30 37.6 C H 67 21 93 05/24/24 07:15 112/58 L 05/24/24 07:06 37.7 C H 67 20 92 05/24/24 05:45 139/62 05/24/24 05:45 139/62 05/24/24 05:45 37.7 C H 68 21 96 05/24/24 05:39 37.7 C H 65 24 94 05/24/24 05:18 37.7 C H 71 17 95 05/24/24 05:15 125/57 L 05/24/24 05:15 125/57 L 05/24/24 05:12 37.7 C H 70 20 95 05/24/24 05:00 105/55 L 05/24/24 05:00 105/55 L 05/24/24 05:00 37.8 C H 67 20 91 05/24/24 04:45 144/58 H 05/24/24 04:45 144/58 H 05/24/24 04:36 37.7 C H 66 20 93 05/24/24 04:30 125/57 L 05/24/24 04:15 37.8 C H 66 20 92 05/24/24 04:15 117/56 L 05/24/24 04:12 37.8 C H 67 20 92 05/24/24 04:00 126/58 L 05/24/24 04:00 05/24/24 04:00 93 05/24/24 04:00 66 125/43 L 05/24/24 03:54 37.9 C H 67 20 92 05/24/24 03:51 37.9 C H 67 20 92 05/24/24 03:36 37.9 C H 67 20 93 05/24/24 03:15 118/56 L 05/24/24 03:15 118/56 L 05/24/24 03:15 118/56 L 05/24/24 03:15 38.0 C H 68 20 94 05/24/24 03:12 38.0 C H 68 20 95 05/24/24 03:02 68 21 95 05/24/24 02:45 118/58 L 05/24/24 02:42 38.1 C H 69 20 95 05/24/24 02:30 134/60 05/24/24 02:30 38.1 C H 71 20 98 05/24/24 02:24 38.1 C H 69 20 96 05/24/24 02:15 128/57 L 05/24/24 02:00 115/56 L 05/24/24 02:00 115/56 L 05/24/24 02:00 115/56 L 05/24/24 02:00 115/56 L 05/24/24 02:00 115/56 L 05/24/24 02:00 38.2 C H 69 20 99 05/24/24 01:45 38.3 C H 71 20 99 05/24/24 01:45 118/56 L 05/24/24 01:45 118/56 L 05/24/24 01:39 38.3 C H 72 20 98 05/24/24 01:30 111/57 L 05/24/24 01:27 38.3 C H 71 20 99 05/24/24 01:24 38.3 C H 72 20 99 05/24/24 01:15 118/56 L 05/24/24 01:15 118/56 L 05/24/24 01:15 118/56 L 05/24/24 01:12 38.3 C H 75 20 98 05/24/24 01:08 107/80 05/24/24 01:08 107/80 05/24/24 01:06 38.3 C H 70 20 99 05/24/24 01:00 38.3 C H 68 20 99 05/24/24 01:00 121/56 L 05/24/24 01:00 121/56 L 05/24/24 01:00 121/56 L 05/24/24 01:00 121/56 L 05/24/24 00:51 38.3 C H 70 20 99 05/24/24 00:45 118/55 L 05/24/24 00:27 38.3 C H 72 20 99 05/24/24 00:00 05/24/24 00:00 99 05/24/24 00:00 67 120/47 L 05/24/24 00:00 69 05/23/24 23:45 38.1 C H 72 22 99 05/23/24 23:45 135/63 05/23/24 23:45 135/63 05/23/24 23:45 135/63 05/23/24 23:45 135/63 05/23/24 23:30 121/62 05/23/24 23:30 121/62 05/23/24 23:30 121/62 05/23/24 23:30 38.1 C H 72 20 99 05/23/24 23:27 38.1 C H 70 20 99 05/23/24 23:09 71 22 100 05/23/24 23:00 120/60 05/23/24 22:54 38.0 C H 70 20 100 05/23/24 22:45 37.9 C H 70 20 100 05/23/24 22:45 129/60 05/23/24 22:45 129/60 05/23/24 22:33 37.9 C H 71 20 100 05/23/24 22:30 123/62 05/23/24 22:27 37.8 C H 70 19 100 05/23/24 22:18 37.8 C H 71 24 100 05/23/24 22:15 127/61 05/23/24 22:15 127/61 05/23/24 22:06 37.8 C H 71 23 100 05/23/24 22:00 37.8 C H 71 20 100 05/23/24 22:00 135/65 05/23/24 22:00 135/65 05/23/24 22:00 135/65 05/23/24 22:00 135/65 05/23/24 21:45 135/63 05/23/24 21:45 135/63 05/23/24 21:45 135/63 05/23/24 21:42 37.7 C H 71 23 100 05/23/24 21:36 37.7 C H 71 20 100 05/23/24 21:27 37.6 C H 71 20 100 05/23/24 21:15 122/60 05/23/24 21:12 37.6 C H 72 20 100 05/23/24 21:00 37.5 C 71 20 100 05/23/24 21:00 115/60 05/23/24 21:00 115/60 O2 Del Method FiO2 05/24/24 08:36 05/24/24 08:35 40 05/24/24 08:35 40 05/24/24 08:30 05/24/24 08:24 05/24/24 08:15 05/24/24 08:00 05/24/24 08:00 05/24/24 08:00 40 05/24/24 07:57 05/24/24 07:51 05/24/24 07:45 05/24/24 07:42 05/24/24 07:30 05/24/24 07:30 05/24/24 07:15 05/24/24 07:06 05/24/24 05:45 05/24/24 05:45 05/24/24 05:45 05/24/24 05:39 05/24/24 05:18 05/24/24 05:15 05/24/24 05:15 05/24/24 05:12 05/24/24 05:00 05/24/24 05:00 05/24/24 05:00 05/24/24 04:45 05/24/24 04:45 05/24/24 04:36 05/24/24 04:30 05/24/24 04:15 05/24/24 04:15 05/24/24 04:12 05/24/24 04:00 05/24/24 04:00 40 05/24/24 04:00 Mechanical Vent 05/24/24 04:00 05/24/24 03:54 05/24/24 03:51 05/24/24 03:36 05/24/24 03:15 05/24/24 03:15 05/24/24 03:15 05/24/24 03:15 05/24/24 03:12 05/24/24 03:02 40 05/24/24 02:45 05/24/24 02:42 05/24/24 02:30 05/24/24 02:30 05/24/24 02:24 05/24/24 02:15 05/24/24 02:00 05/24/24 02:00 05/24/24 02:00 05/24/24 02:00 05/24/24 02:00 05/24/24 02:00 05/24/24 01:45 05/24/24 01:45 05/24/24 01:45 05/24/24 01:39 05/24/24 01:30 05/24/24 01:27 05/24/24 01:24 05/24/24 01:15 05/24/24 01:15 05/24/24 01:15 05/24/24 01:12 05/24/24 01:08 05/24/24 01:08 05/24/24 01:06 05/24/24 01:00 05/24/24 01:00 05/24/24 01:00 05/24/24 01:00 05/24/24 01:00 05/24/24 00:51 05/24/24 00:45 05/24/24 00:27 05/24/24 00:00 50 05/24/24 00:00 Mechanical Vent 05/24/24 00:00 05/24/24 00:00 05/23/24 23:45 05/23/24 23:45 05/23/24 23:45 05/23/24 23:45 05/23/24 23:45 05/23/24 23:30 05/23/24 23:30 05/23/24 23:30 05/23/24 23:30 05/23/24 23:27 05/23/24 23:09 50 05/23/24 23:00 05/23/24 22:54 05/23/24 22:45 05/23/24 22:45 05/23/24 22:45 05/23/24 22:33 05/23/24 22:30 05/23/24 22:27 05/23/24 22:18 05/23/24 22:15 05/23/24 22:15 05/23/24 22:06 05/23/24 22:00 05/23/24 22:00 05/23/24 22:00 05/23/24 22:00 05/23/24 22:00 05/23/24 21:45 05/23/24 21:45 05/23/24 21:45 05/23/24 21:42 05/23/24 21:36 05/23/24 21:27 05/23/24 21:15 05/23/24 21:12 05/23/24 21:00 05/23/24 21:00 05/23/24 21:00 Lab & Micro Results (Past 24 Hours) RBC 4.10 M/uL (4.20-5.40) L 05/23/24 WBC 14.42 K/ul (4.8-10.8) H 05/23/24 Hgb 11.0 g/dl (12.0-16.0) L 05/23/24 Hct 32.0 % (37.0-47.0) L 05/23/24 MCV 78.0 fL (80.0-100.0) L 05/23/24 MCH 26.8 pg (25.0-34.0) 05/23/24 MCHC 34.4 g/dL (32.0-36.0) 05/23/24 RDW Standard Deviation 35.5 fL (36.4-46.3) L 05/23/24 RDW Coefficient of Variation 12.5 % (11.5-14.5) 05/23/24 Plt Count 238 K/uL (130-400) 05/23/24 MPV 12.4 fL (9.4-12.4) 05/23/24 Neutrophils (%) (Auto) 89.2 % 05/23/24 Lymphocytes (%) (Auto) 2.4 % 05/23/24 Monocytes # (Auto) 1.13 K/uL (0.11-0.59) H 05/23/24 Eosinophils # (Auto) 0.00 K/uL (0.00-0.50) 05/23/24 Immature Granulocyte % (Auto) 0.5 % 05/23/24 Neutrophils # (Auto) 12.86 K/uL (1.40-6.50) H 05/23/24 Lymphocytes # (Auto) 0.35 K/uL (1.20-3.40) L 05/23/24 Monocytes # (Auto) 1.13 K/uL (0.11-0.59) H 05/23/24 Eosinophils # (Auto) 0.00 K/uL (0.00-0.50) 05/23/24 Basophils # (Auto) 0.01 K/uL (0.00-0.20) 05/23/24 Immature Granulocyte # (Auto) 0.07 K/uL (0.01-0.20) 5 Na 130 mmol/L (136-145) L 05/24/24 K 4.1 mmol/L (3.5-5.1) 05/24/24 Cl 101 mmol/L (98-107) 05/24/24 CO2 21 mmol/L (21-32) 05/24/24 Anion Gap 8 (3-11) 05/24/24 BUN 138 mg/dl (6-23) H 05/24/24 Creatinine 3.12 mg/dl (0.6-1.2) H 05/24/24 BUN/Creatinine Ratio 44.2 (10-20) H 05/24/24 Glu 370 mg/dl (70-99(Fasting)) H* 05/24/24 Ca 6.8 mg/dl (8.6-10.3) L 05/24/24 Phosphorus Level 2.1 mg/dl (2.5-4.9) L 05/24/24 Total Bilirubin 0.3 mg/dl (0.2-1.0) 05/23/24 Direct Bilirubin 0.1 mg/dl (0-0.2) 05/23/24 AST 70 U/L (13-39) H 05/23/24 ALT 30 U/L (7-52) 05/23/24 Alkaline Phosphatase 69 U/L (34-104) 05/23/24 TP 3.9 gm/dl (6.0-8.3) L 05/23/24 Albumin 2.4 gm/dl (3.4-5.0) L 05/23/24 Globulin 1.5 gm/dl (2.5-4.0) L 05/23/24 Albumin/Globulin Ratio 1.6 (0.9-2) 05/23/24 Mg 2.2 mg/dl (1.7-2.4) 05/24/24 07:13 Calcium Level 6.8 mg/dl (8.6-10.3) L 05/24/24 07:13 Prothromb Time International Ratio 1.4 (0.9-1.1) H 05/24/24 03 :10 Venous Blood pH 7.30 (7.36-7.41) L 05/24/24 07:13 Venous Blood Partial Pressure CO2 29 mmHg (38-50) L 05/23/24 09 :42 Venous Blood Partial Pressure O2 53 mmHg 05/23/24 09:42 Venous Blood HCO3 8 mmol/L 05/23/24 09:42 Venous Blood Base Excess -22.4 mEq/L 05/23/24 09:42 Venous Blood Oxygen Saturation 79.3 % 05/23/24 09:42 Alex Test NA 05/24/24 04:56 Microbiology 05/23/24 Unknown Gram Stain - Final Sputum,Vent Suction Sputum Culture - Preliminary Staphylococcus aureus Diagnostic Findings (Past 24 Hours) Chest X-Ray 05/23/24 09:40 XR chest 1V portable CLINICAL HISTORY: Sepsis COMPARISON STUDY: 12/14/2023 FINDINGS: There is stable mild cardiomegaly without pulmonary vascular congestion. Inspiration is shallow. There is interval mild stranding opacity at the left base. No other consolidation or pleural effusion. No pneumothorax. IMPRESSION: Shallow inspiration with atelectasis versus early pneumonia left lung base. ACT 112: Negative or not required by law. Electronically signed by: Francisco Thomas M.D. 05/23/2024 10:15 AM Chest X-Ray 05/23/24 13:05 XR chest 1V portable CLINICAL HISTORY: intubation COMPARISON STUDY: 05/23/2024 FINDINGS: Endotracheal tube tip is at the thoracic inlet in good position. Stable mild cardiomegaly without pulmonary vascular congestion. No effusion, consolidation, or pneumothorax seen. IMPRESSION: Well-positioned endotracheal tube with well-aerated lungs. ACT 112: Negative or not required by law. Electronically signed by: Francisco Thomas M.D. 05/23/2024 1:52 PM KUB X-Ray 05/23/24 15:30 Clinical history: Tube placement One view of the abdomen was obtained Findings: There is a nasogastric tube with its tip within the gastric fundus There are mildly prominent air-filled loops of small and large bowel. There is no definite sign of bowel obstruction. The lower pelvis was not imaged. No renal or ureteral calculi are seen. No foreign body is evident. No osseous abnormality is seen Impression: Nasogastric tube coiled within the proximal stomach Electronically signed by Sesar Loza 05-23-2024 4:31 PM Chest X-Ray 05/24/24 07:00 EXAM: XR chest 1V portable CLINICAL HISTORY: resp failure TECHNIQUE: An X-ray image of the chest is obtained in AP projection. COMPARISON: 12/14/2023 FINDINGS: ET tube with its tip about 1cm from lilo, need repositioning. NG tube with its tip seen reaching left infradiaphragmatic Pulmonary Parenchyma: Left lower lung zone peripheral radio-opaque shadow with blunting of left costophrenic angle Bilateral prominent broncho vascular markings Blunting of right costophrenic angle Heart and Mediastinum: Apparent cardiomegaly Bony Thorax: Bony thorax appears intact without fractures or deformities. Soft Tissues: Soft tissues overlying the chest wall are unremarkable. IMPRESSION: 1. ET tube with its tip about 1cm from lilo, need repositioning (new) 2. NG tube with its tip seen reaching left infradiaphragmatic region(new) 3. Left lower lung zone peripheral radio-opaque shadow with blunting of left costophrenic angle, with blunting of right costophrenic angle , could be pleural effusion (new) 4. Bilateral prominent broncho vascular markings , raising possibility of pulmonary congestion (unchanged). 5. Apparent cardiomegaly (unchanged) Electronically signed by Lianna Fuentes 05-24-2024 08:09 AM I & O Totals 24 Hours 05/23/24 05/24/24 05/25/24 06:59 06:59 06:59 Intake Total 6420.675 / 6420.675 86.024 / 86.024 Output Total 1175 / 1175 150 / 150 Balance 5245.675 / 5245.675 -63.976 / -63.976 Cumulative 05/23/24 09:14 thru 05/24/24 08:00 Intake Total 6506.699 Output Total 1325 Balance 5181.699 RT Ventilator Mngmt (Last Documented) Ventilator Ordered Settings Ventilator Support Mode Assist Control 05/24/24 08:35 Respiratory Rate 20 05/24/24 08:36 Ventilator Tidal Volume 400 05/24/24 08:35 Setting Minute Ventilation 8 05/24/24 08:00 Positive End Expiratory 5 05/24/24 08:35 Pressure Fraction of Inspired Oxygen 40 05/24/24 08:35 Machine Comment ETT adjusted to [address] Zamarripa 05/23/24 14:52 Ventilator - PT Measurements Respiratory Rate 20 Exhaled Tidal Volume 476 Minute Ventilation 8 Peak Inspiratory Airway 20 Pressure Mean Airway Pressure 32 Plateau Pressure 17 Respiratory Cycle Inspiratory: 1:2.8 Expiratory Ratio Inspiratory Phase Time 0.8 End-Tidal CO2 34 Static Lung Compliance 39.67 Dynamic Lung Compliance 31.73 Normal Static Lung Compliance 47.00 Patient Measurements Comment No changes made on the ventilator at this time. Dr. Marilou Rosado messaged regarding communication order to pull ETT back at this time. RN aware. Coding Level of Care Code 92251 CRITICAL CARE 1ST 30-74M Diagnoses Metabolic encephalopathy G93.41 Acute kidney injury N17.9 Sepsis without acute organ dysfunction, due to unspecified organism A41.9 Sepsis acute organ dysfunction status: without acute organ dysfunction Sepsis type: sepsis due to unspecified organism (3) Sepsis Sepsis acute organ dysfunction status: without acute organ dysfunction Sepsis type: sepsis due to unspecified organism Qualified Code(s): A41.9 - Sepsis, unspecified organism
[2024-05-24] MEDS: SODIUM BICARB 8.4% INJ 50 MEQ/50 ML SYR IV STA (09:12)
[2024-05-24] MEDS: VANCOMYCIN HCL 2,000 MG in SODIUM CHLORIDE 0.9% 500 ML IV ONE (10:11)
[2024-05-24] MEDS: CALCIUM CHLORIDE 10% 1,000 MG in DEXTROSE 5% 50 ML IV STA (10:11)
--- NOTE | 2024-05-24 10:30 | Pharmacy Report ---
Pharmacy Glycemic Short Note 2 - Date of Service May 24, 2024 - Glycemic Short BSG Results (Last 24 hours): 05/23/24 05/23/24 05/23/24 09:42 11:03 12:40 Glucose 1467 H* 1439 H* 1201 H* POC Glucose (other) 05/23/24 05/23/24 05/23/24 14:02 14:21 15:11 Glucose 1118 H* 1053 H* POC Glucose (other) > 700 H* 05/23/24 05/23/24 05/23/24 16:34 17:15 18:16 Glucose 1060 H* 1016 H* 976 H* POC Glucose (other) 05/23/24 05/23/24 05/23/24 19:03 19:03 20:18 Glucose 943 H* 942 H* 870 H* POC Glucose (other) 05/23/24 05/23/24 05/24/24 21:19 22:44 00:50 Glucose 825 H* 761 H* POC Glucose (other) 633 H* 05/24/24 05/24/24 05/24/24 02:13 03:10 03:22 Glucose 533 H* POC Glucose (other) 566 H* 526 H* 05/24/24 05/24/24 05/24/24 04:31 05:16 06:21 Glucose POC Glucose (other) 476 H* 448 H* 403 H* 05/24/24 05/24/24 05/24/24 07:13 07:19 08:29 Glucose 370 H* POC Glucose (other) 369 H* 325 H 05/24/24 09:30 Glucose POC Glucose (other) 288 H OUTPATIENT ANTIDIABETIC REGIMEN: * empagliflozin 25mg PO daily * Lantus 23 units SQ BID (vs. 46 units daily) * Novolog TIDM HbA1C: 11.2% 05/24/24 (est avg BSG ~275mg/dL) ASSESSMENT: 05/24 * Patient remains intubated and sedated this AM. * Pressor support continues (phenylephrine @1.5mcg/kg/min) * BSGs have trending down into the 300s this AM and AG acidosis has resolved (AG = 8 and Bicarb 21) * Renal fxn improving, SCr decreasing and UOP increasing * Patient discussed on multidisciplinary rounds this AM. Patient will continue on IV insulin infusion at this time, however will add some basal insulin today as this will make transition to SQ regimen easier in the near future. Per Plasterer Foreman, BSGs in 200s acceptable for this patient given A1c and BSGs on presentation. Nutrition to begin today, Pilates Instructor currently working up a plan. Dextrose containing IVFs will not be utilized given addition of nutrition. May need to add dextrose to maint IVFs if BSGs do fall unexpectedly. 05/23 * Pt is a 64 year old female admitted with DKA and metabolic encephalopathy. History of DM2 on insulin therapy at home. Pharmacy consulted to assist with glycemic management/drip transition. * Initial labs: BSG-1467, AG-27, bicarb-10, pH-7.02. Pt initiated on an insulin drip per DKA protocol. Currently intubated and sedated and requiring vasopressor support. * Continue insulin infusion per DKA/HHS protocol until gap closed. Potassium containing IVF started and switch to dextrose containing IVF once BSG within goal range. PLAN FOR INPATIENT GLYCEMIC CONTROL: * Hold outpatient oral diabetes medications * Continue IV insulin per protocol. Goal range 180 - 250mg/dL for next 24 hours * Basal insulin * add Lantus 18 units SQ BID in addition to insulin drip * Bolus insulin * NovoLog SQ to cover carbs provided in tube feedings, admin Q 4 hrs * Nutritional / Prandial insulin per carb ratio of 1 unit per 10 grams CHO
--- NOTE | 2024-05-24 10:47 | Pharmacy Report ---
Pharmacy Vanc AUC Short Note - Date of Service May 24, 2024 - Assessment & Plan Assessment * 64 year old F receiving VANCOMYCIN + ZOSYN for treatment of CAP as well as recent h/o R foot osteo. * Pertinent microbiologic data includes: Negative MRSA Nasal Swab; staph aureus growing in sputum cx (vent suction cx); blood and urine cx's pending; no cx's obtained from foot thus far this admission. Prior foot cx's had growing GBS, finegoldia, gemella and strep intermedius. * Day # 1 of antimicrobial therapy. * Patient did present with JOLENE which appears to be improving Plan Vancomycin * AUC/YANETH is the preferred PK/PD target for vancomycin - however patient is not currently a candidate for this method due to severe JOLENE and changing renal fxn. Dosing will be guided by random levels instead until renal fxn stabilized. * 2000mg (~20mg/kg) loading dose x 1 given this AM * Will check random level w/ AM labs tomorrow. Will need redosed if level less than 20mcg/mL or anticipated to fall below this threshold. Pharmacy will continue to follow and will adjust dose/frequency as necessary. Thank you.
[2024-05-24] MEDS: LANTUS PER UNIT CHARGE SC ONE (10:49)
[2024-05-24] MEDS: PEPTAMEN INTENSE VHP 1.0 CAL 1,000 ML BAG OG SCH (12:02)
[2024-05-24] MEDS: INSULIN ASPART PER UNIT CHARGE SC SCH (12:05)
[2024-05-24] MEDS: TUBE FEEDING WATER FLUSH OG SCH (12:05)
--- NOTE | 2024-05-24 12:52 | Hospitalist Progress Note ---
Date of Service May 24, 2024 Assessment & Plan (1) Metabolic encephalopathy: (2) DKA (diabetic ketoacidosis): (3) Uncontrolled type 2 diabetes mellitus with hyperglycemia: (4) Influenza A: (5) Non-ST elevation NH (NSTEMI): (6) Acute kidney injury: (7) Hypertension: (8) PAD (peripheral artery disease): Plan Ms. Hay is a 64F with PMHx of Uncontrolled T2DM on Insulin with Neuropathy, PAD, and HTN who presents to the ED for altered mental status. HPI noted for cough and congestion since found to be Flu A positive in ER. It is reported she has not taken insulin since and became delirious on Thursday. She is noted to have a glucose of 1439 and multiple electrolyte abnormalities. Patient went to cleaning laborer due to elevated troponins and inferior wall EKG changes. No PCI indicated and findings suggesting of Type II NSTEMI #Metabolic Encephalopathy 2/2 Multifactorial -- Diabetic Ketoacidosis/Influenza A/Dehydration/possible diabetic foot infection osteomyelitis -Patient decompensated while in the ED with hypotension and bradycardia. Ultimately required intubation and the initiation of pressor support while correcting acidosis. -Patient remains mechanically ventilated. Blood pressure and heart rate have remained stable with current management. #Metabolic Acidosis 2/2 Diabetic Ketoacidosis//Uncontrolled T2DM - A1c 11.1: -Glucose noted 1439; Lactate 2.4; K 6.3 -Received fluid boluses in ED; bicarb; intubation -DKA protocol with pharmacy assistance routine labs for glucose monitoring and electrolyte adjustment as glucose improves -Glucose has trended down to 260. Anion gap is closed Hemoglobin A1c is at 11.2. -Potassium has improved to 4.2. -Metabolic acidosis improving. #Influenza A: -CXR noted atelectasis vs L base PNA; procal is elevated a 1.66; WBC 14.42 - pending repeat CXR - Repeat chest xray showing blunting of both costophrenic angles/pleural effusions - Sputum culture positive for Staohylococcus aureus - Currently on vancomycin and zosyn #Type II NSTEMI 2/2 Above -EKG with acute elevations in II, III, aVF - patient to cleaning laborer with Dr. Dick - no PCI indicated -Hold home ASA and Atorvastatin while intubated; non-oral options to be determined upon further recommendations -Cardiology following - recommends high dose statin moving forward -Cardiac catheterization revealing diffuse small vessel disease. -Echocardiogram showing upper limit normal EF with normal LV size and atrial size. The right ventricle is borderline enlarged with mild tricuspid regurgitation. RV function is intact #Acute Kidney Injury/Hyponatremia/Hyperkalemia: -Multifactorial - significant dehydration 2/2 hyperglycemia and influenza A and possible ATN; baseline 0.7 -Received initial fluid bolus; will require routine labs for monitoring -Nephrology consulted -Improving, BUN currently 138 and creatinine currently 3.12 #HTN: -Acutely ill with hypotension and requiring pressor support -Hold home Norvasc and Toprol XL while intubated and acutely ill; per last D/C she was D/Cd from Lisinopril given previous JOLENE 2/2 ATN this will need verified if remains off -Blood pressures have been stable with current management #History of OM R Foot with Previous Amputations (Dec-Feb 2024): - meropenem d/c - R foot X-ray was ordered and showing signs of possible early osteomyelitis. - Continue vancomycin and Zosyn. - Continue wound care - Further surgical management to be determined once patient becomes more stable #DVT Prophylaxis: -Heparin SC #Disposition: -ICU Admission and Anticipated Discharge Date Admission Date: May 23, 2024 Supervising Physician Co-Signing Physician Notes Patient was seen and examined independently I discussed the case with Amarilys DHILLON I reviewed pertinent past medical social family history and also the plan of care and agree with the plan of care. Patient has been ill at home for approximately 5 days not taking any insulin or eating very much food Patient is sedate on the ventilator, concern for possible fungal infection and abdominal fluid patient remains on Zosyn and Function, DKA Has Improved. Conc tena for Diabetic Foot Infection with Possible Osteomyelitis of the Right First Metatarsal Pending Podiatric Consult Examination patient is in stable condition ventilation has coarse breath sounds abdomen is with no bowel sounds soft extremity has some purulence near the distal aspect of the first MTP on the right foot Continue antibiotic therapy ventilator support pressor support podiatric consult appreciate infectious disease continuing Zosyn and caspofungin Any exceptions will be noted below Subjective Unable to obtain history from patient. Patient on mechanical ventilation. Review of Systems Review of Systems: Unobtainable due to endotracheal tube Physical Exam Physical Exam: General: mechanically ventilated; obese HEENT: normocephalic, atraumatic; Neck: supple; no lymphadenopathy; trachea midline Skin: warm, dry without signs of tenting; no cyanosis; no rashes or bruising noted. Callus with possible underlying hemorrhage present plantar aspect of right 1st metatarsal joint without active drainage or surrounding erythema. Callus present medial aspect of right first metatarsal joint without active drainage or surrounding erythema present. CV: RRR; S1/S2 normal; no murmurs/rubs/gallops; mildly diminished pedal pulses bilaterally. Lungs: diffuse rhonchi present; decreased breath sounds at lung bases. ABD: Soft, hypoactive bowel sounds in all 4 quadrants. MSK: no tics or fasciculations; no edema noted in the LEs b/l, nonerythematous Results & Data Results & Data Vital Signs (Past 12 Hours) Vital signs reviewed. Temperature trending down. Heart rate and blood pressure are stable. Oxygen saturation stable via mechanical ventilation. Vital Signs Temp Pulse Resp BP Pulse Ox Pulse Ox O2 Del Method 05/24/24 11:25 66 20 95 05/24/24 08:36 99.7 F H 67 20 94 05/24/24 08:35 05/24/24 08:35 Mechanical Vent 05/24/24 08:30 124/60 05/24/24 08:24 99.7 F H 67 20 94 05/24/24 08:15 112/57 L 05/24/24 08:00 129/61 05/24/24 08:00 63 05/24/24 08:00 70 21 95 05/24/24 07:57 99.7 F H 66 20 94 05/24/24 07:51 99.7 F H 67 20 94 05/24/24 07:45 Mechanical Vent 05/24/24 07:45 125/58 L 05/24/24 07:42 99.7 F H 66 20 95 05/24/24 07:30 120/59 L 05/24/24 07:30 99.7 F H 67 21 93 05/24/24 07:15 112/58 L 05/24/24 07:06 99.9 F H 67 20 92 05/24/24 05:45 139/62 05/24/24 05:45 139/62 05/24/24 05:45 99.9 F H 68 21 96 05/24/24 05:39 99.9 F H 65 24 94 05/24/24 05:18 99.9 F H 71 17 95 05/24/24 05:15 125/57 L 05/24/24 05:15 125/57 L 05/24/24 05:12 99.9 F H 70 20 95 05/24/24 05:00 105/55 L 05/24/24 05:00 105/55 L 05/24/24 05:00 100.0 F H 67 20 91 05/24/24 04:45 144/58 H 05/24/24 04:45 144/58 H 05/24/24 04:36 99.9 F H 66 20 93 05/24/24 04:30 125/57 L 05/24/24 04:15 100.0 F H 66 20 92 05/24/24 04:15 117/56 L 05/24/24 04:12 100.0 F H 67 20 92 05/24/24 04:00 126/58 L 05/24/24 04:00 05/24/24 04:00 93 05/24/24 04:00 66 125/43 L 05/24/24 03:54 100.2 F H 67 20 92 05/24/24 03:51 100.2 F H 67 20 92 05/24/24 03:36 100.2 F H 67 20 93 05/24/24 03:15 118/56 L 05/24/24 03:15 118/56 L 05/24/24 03:15 118/56 L 05/24/24 03:15 100.4 F H 68 20 94 05/24/24 03:12 100.4 F H 68 20 95 05/24/24 03:02 68 21 95 05/24/24 02:45 118/58 L 05/24/24 02:42 100.6 F H 69 20 95 05/24/24 02:30 134/60 05/24/24 02:30 100.6 F H 71 20 98 05/24/24 02:24 100.6 F H 69 20 96 05/24/24 02:15 128/57 L 05/24/24 02:00 115/56 L 05/24/24 02:00 115/56 L 05/24/24 02:00 115/56 L 05/24/24 02:00 115/56 L 05/24/24 02:00 115/56 L 05/24/24 02:00 100.8 F H 69 20 99 05/24/24 01:45 100.9 F H 71 20 99 05/24/24 01:45 118/56 L 05/24/24 01:45 118/56 L 05/24/24 01:39 100.9 F H 72 20 98 05/24/24 01:30 111/57 L 05/24/24 01:27 100.9 F H 71 20 99 05/24/24 01:24 100.9 F H 72 20 99 05/24/24 01:15 118/56 L 05/24/24 01:15 118/56 L 05/24/24 01:15 118/56 L 05/24/24 01:12 100.9 F H 75 20 98 05/24/24 01:08 107/80 05/24/24 01:08 107/80 05/24/24 01:06 100.9 F H 70 20 99 05/24/24 01:00 100.9 F H 68 20 99 05/24/24 01:00 121/56 L 05/24/24 01:00 121/56 L 05/24/24 01:00 121/56 L 05/24/24 01:00 121/56 L 05/24/24 00:51 100.9 F H 70 20 99 05/24/24 00:45 118/55 L O2 Del Method FiO2 05/24/24 11:25 30 05/24/24 08:36 05/24/24 08:35 40 05/24/24 08:35 40 05/24/24 08:30 05/24/24 08:24 05/24/24 08:15 05/24/24 08:00 05/24/24 08:00 05/24/24 08:00 40 05/24/24 07:57 05/24/24 07:51 05/24/24 07:45 05/24/24 07:45 05/24/24 07:42 05/24/24 07:30 05/24/24 07:30 05/24/24 07:15 05/24/24 07:06 05/24/24 05:45 05/24/24 05:45 05/24/24 05:45 05/24/24 05:39 05/24/24 05:18 05/24/24 05:15 05/24/24 05:15 05/24/24 05:12 05/24/24 05:00 05/24/24 05:00 05/24/24 05:00 05/24/24 04:45 05/24/24 04:45 05/24/24 04:36 05/24/24 04:30 05/24/24 04:15 05/24/24 04:15 05/24/24 04:12 05/24/24 04:00 05/24/24 04:00 40 05/24/24 04:00 Mechanical Vent 05/24/24 04:00 05/24/24 03:54 05/24/24 03:51 05/24/24 03:36 05/24/24 03:15 05/24/24 03:15 05/24/24 03:15 05/24/24 03:15 05/24/24 03:12 05/24/24 03:02 40 05/24/24 02:45 05/24/24 02:42 05/24/24 02:30 05/24/24 02:30 05/24/24 02:24 05/24/24 02:15 05/24/24 02:00 05/24/24 02:00 05/24/24 02:00 05/24/24 02:00 05/24/24 02:00 05/24/24 02:00 05/24/24 01:45 05/24/24 01:45 05/24/24 01:45 05/24/24 01:39 05/24/24 01:30 05/24/24 01:27 05/24/24 01:24 05/24/24 01:15 05/24/24 01:15 05/24/24 01:15 05/24/24 01:12 05/24/24 01:08 05/24/24 01:08 05/24/24 01:06 05/24/24 01:00 05/24/24 01:00 05/24/24 01:00 05/24/24 01:00 05/24/24 01:00 05/24/24 00:51 05/24/24 00:45 Laboratory Results Labs reviewed. Sputum culture showing staphylococcus aureus Right foot wound culture pending Urine culture negative negative Preliminary blood cultures negative. Diagnostic Findings Diagnostics reviewed. Chest x-ray showing blunting of left and right costophrenic angles and bilateral prominent bronchovesicular markings. Possible pleural effusion. Cardiomegaly Echocardiogram showing upper limit normal EF, normal LV size, borderline dilated RV with RV function intact, normal atrial sizes, and mild tricuspid regurgitation. Cardiac catheterization revealed diffuse small vessel disease. Right foot xray showing possible early osteomyelitis distal medial aspect of 1st metatarsal PG Care Time/CCT Total # of Minutes Spent Total Time Spent with Patient: Total time spent is greater than 50% in coordination of care (as documented) at patient's floor/unit and/or counseling patient: Coding Level of Care Code None Diagnoses Metabolic encephalopathy G93.41 DKA (diabetic ketoacidosis) E11.10 Uncontrolled type 2 diabetes mellitus with hyperglycemia E11.65 Influenza A J10.1 Non-ST elevation NH (NSTEMI) I21.4 Acute kidney injury N17.9 Primary hypertension I10 Hypertension type: primary hypertension PAD (peripheral artery disease) I73.9 (7) Hypertension Hypertension type: primary hypertension Qualified Code(s): I10 - Essential (primary) hypertension
--- NOTE | 2024-05-24 12:58 | XRay Report ---
XR foot RT 2V CLINICAL HISTORY: eval 1st MT distal for osteo COMPARISON: 12/14/2023 FINDINGS: There is interval amputation of the third toe. There is interval resection of the distal a spect of the second proximal phalanx. There is possible interval resection of a small amount of the l ateral base second middle phalanx. No acute fracture or dislocation. There is soft tissue swelling at the great toe. On the frontal view there is possible early cortical thinning at the distal medial as pect of the first metatarsal. No other evidence of osteomyelitis seen. IMPRESSION: 1. Possible early osteomyelitis distal medial aspect of the first metatarsal. 2. If there is not history of resection of a small portion of the base of the second middle phalanx, there could also be early osteomyelitis at that location. ACT 112: Negative or not required by law. Electronically signed by: Francisco Thomas M.D. 05/24/2024 12:56 PM
--- NOTE | 2024-05-24 18:11 | Billing Data ---
Date of Service May 24, 2024 Coding Level of Care Code 99125 SUB INP/OBS CARE
[2024-05-24] MEDS ORDERED: STAT IV Infusion **Titration per Protocol STA ×2 (18:20→20:55)
[2024-05-24] MEDS: ESMOLOL / NSS 2,500 MG/250 ML BAG IV SCH (18:28)
[2024-05-24] MEDS: PLASMA-LYTE A 500 ML IV ONE (19:01)
[2024-05-24 19:25] LABS: Hematocrit (blood only) 27.7 % (37.0-47.0); Mean Corpuscular Hemoglobin 27.8 pg (25.0-34.0); Mean Corpuscular Hgb Conc 36.1 g/dL (32.0-36.0); Mean Corpuscular Volume 76.9 fL (80.0-100.0); Platelet Count 113 K/uL (130-400); RDW Coefficient of Variation 13.3 % (11.5-14.5); RDW Standard Deviation 37.3 fL (36.4-46.3); White Blood Count 8.41 K/ul (4.8-10.8)
--- NOTE | 2024-05-24 19:37 | Communication Note ---
Date of Service: May 24, 2024 1830- Notified of Patient HR into the 140-150s and rhythm change to atrial fibrillation with RVR. She has decreased her blood pressure with change in rhyt hm and rate, however has currently responded to minimal increase in her vasopressors. - will provide 500ml of plasmalyte - Electrolytes reviewed and stable with K~4.0 and MG >2.0 - She is easily arousable to voice and is with furrowed brow - will provide minimal increase in sedation to make sure this isn't related to pain/discomfort of ETT and Ventilator - oxygenation requirements have not changed - currently afebrile as well - For her Afib- appears she has had this earlier but not sustained- will start with Esmolol and titrate- if unable to control rate or becomes h ypotensive/does not tolerate- will change to amiodarone and if becomes unstable or rates sustained >150 will cardiovert. - Initiate heparin with bolus low dose for afib stroke prevention as this has been PAF One[facility] ([facility]-)
[2024-05-24 19:40] LABS: Basophils # (auto) 0.01 K/uL (0.00-0.20); Basophils % (auto) 0.1 %; Dohle Bodies 1+; Immature Granulocytes # (auto) 0.06 K/uL (0.01-0.20); Immature Granulocytes % (auto) 0.7 %; Lymphocytes # (auto) 0.57 K/uL (1.20-3.40); Lymphocytes % (auto) 6.8 %; Monocytes # (auto) 0.41 K/uL (0.11-0.59); Monocytes % (auto) 4.9 %; Neutrophils # (auto) 7.36 K/uL (1.40-6.50); Neutrophils % (auto) 87.5 %; Toxic Vacuolation 1+
[2024-05-24 20:00] LABS: INR 1.2 (0.9-1.1); Partial Thromboplastin Ratio 1.4; Partial Thromboplastin Time 39 Seconds (21-31); Prothrombin Time 12.6 Seconds (9.0-12.0)
[2024-05-24] MEDS: HEPARIN 25000 UNIT/500 ML D5W 25,000 UNITS/500 ML BAG IV SCH (20:20)
[2024-05-24] MEDS: Heparin IV Adult Wt-Based Low-Dose w/ INITIAL Bolus Protocol IV STA (20:20)
[2024-05-24] MEDS: HEPARIN SOD (PORCINE) 1000 UNIT/ML IV ONE ×2 (20:22→20:59)
[2024-05-24] MEDS: MIDAZOLAM BOLUS FROM BAG IV PRN (20:25)
[2024-05-24] MEDS ORDERED: 0.2 MICRON FILTER SET 1 EACH IV STA (20:55)
[2024-05-24] MEDS ORDERED: AMIODARONE IV BOLUS & DRIP IV STA (20:55)
[2024-05-24] MEDS: AMIODARONE / D5W 150 MG/100 ML BAG IV STA (21:07)
[2024-05-24] MEDS: AMIODARONE / D5W 360 MG/200 ML BAG IV ONE (21:23)
[2024-05-24] MEDS: LANTUS PER UNIT CHARGE SC SCH (21:27)
[2024-05-24 22:21] LABS: Appearance Urine Cloudy (Clear); Bacteria Urine Automated None Seen (None Seen); Bilirubin Urine Negative (Negative); Blood Urine 3+ (Negative); Color Urine Yellow; Epithelial Cell Urine Auto 0-2 /hpf (0-2); Glucose Urine UA Negative (Negative); Ketones Urine Negative (Negative); Leukocyte Esterase Urine Negative (Negative); Nitrite Urine Negative (Negative); Protein Urine 1+ (Negative); Specific Gravity Urine 1.018 (1.000-1.030); Urobilinogen Urine Negative (Negative); WBC Urine Automated 0-5 /hpf (0-5)
[2024-05-25 03:04] LABS: Basophils # (auto) 0.01 K/uL (0.00-0.20); Basophils % (auto) 0.1 %; Eosinophils # (auto) 0.01 K/uL (0.00-0.50); Eosinophils % (auto) 0.1 %; Hematocrit (blood only) 27.3 % (37.0-47.0); Hemoglobin 9.8 g/dl (12.0-16.0); Immature Granulocytes # (auto) 0.06 K/uL (0.01-0.20); Immature Granulocytes % (auto) 0.6 %; Lymphocytes # (auto) 0.47 K/uL (1.20-3.40); Lymphocytes % (auto) 5.1 %; Mean Corpuscular Hemoglobin 27.5 pg (25.0-34.0); Mean Corpuscular Hgb Conc 35.9 g/dL (32.0-36.0); Mean Corpuscular Volume 76.7 fL (80.0-100.0); Mean Platelet Volume 11.9 fL (9.4-12.4); Monocytes # (auto) 0.48 K/uL (0.11-0.59); Monocytes % (auto) 5.2 %; Neutrophils # (auto) 8.25 K/uL (1.40-6.50); Neutrophils % (auto) 88.9 %; Platelet Count 114 K/uL (130-400); RDW Coefficient of Variation 13.1 % (11.5-14.5); RDW Standard Deviation 36.8 fL (36.4-46.3); Red Blood Count 3.56 M/uL (4.20-5.40); White Blood Count 9.28 K/ul (4.8-10.8)
[2024-05-25 03:23] LABS: Albumin Level 2.1 gm/dl (3.4-5.0); BUN Creatinine Ratio 50.3 (10-20); Bilirubin,Total 0.4 mg/dl (0.2-1.0); Calcium 7.2 mg/dl (8.6-10.3); Creatinine Clr Calc Pharmacy 31.8 ml/min; Globulin 2.1 gm/dl (2.5-4.0); Potassium 3.7 mmol/L (3.5-5.1); Total Protein 4.2 gm/dl (6.0-8.3)
[2024-05-25] MEDS: AMIODARONE / D5W 360 MG/200 ML BAG IV SCH (03:24)
[2024-05-25 03:26] LABS: ANTI-Xa, UFH(UnfractionatedHep 0.68 IU/ml (0.3-0.7)
[2024-05-25] MEDS: POTASSIUM CHLORIDE 20 MEQ/15 ML UDC PO STA (05:46)
[2024-05-25] MEDS: POTASSIUM CHLORIDE / WTR 20 MEQ/100 ML PLCT IV ONE (05:46)
[2024-05-25] MEDS: VANCOMYCIN HCL 1,750 MG in SODIUM CHLORIDE 0.9% 500 ML IV ONE (07:41)
--- NOTE | 2024-05-25 07:46 | XRay Report ---
EXAM: XR chest 1V portable CLINICAL HISTORY: resp failure TECHNIQUE: X-ray images of the chest were obtained in posteroanterior (PA) projection. COMPARISON: Compared to previous study done at 05/24/2024 FINDINGS: Endotracheal tube is seen at 3.3 cm above the lilo (proper position). NGT is seen insitu (left hypochondrial region). Pulmonary Parenchyma: Mild regression of the previously noted left lower zone opacity with still noted blunted left costophrenic angle. Newly developed right lower zone opacity with blunted right costophrenic angle. Heart and Mediastinum: Apparent Cardiomegaly (stable). Prominent bilateral hilar bronchovascular markings. Bony Thorax: Bony thorax appears intact without fractures or deformities. Soft Tissues: Soft tissues overlying the chest wall are unremarkable. IMPRESSION: 1. Endotracheal tube is seen at 3.3 cm above the lilo (proper position in the current study). 2. Mild regression of the previously noted left lower zone opacity with still noted blunted left costophrenic angle. 3. Newly developed right lower zone opacity with blunted right costophrenic angle. 4. Apparent Cardiomegaly (stable). Electronically signed by Lianna Fuentes 05-25-2024 07:45 AM
--- NOTE | 2024-05-25 08:18 | Critical Care Progress Note ---
Date of Service May 25, 2024 Assessment & Plan (1) Metabolic encephalopathy: (2) Acute kidney injury: (3) Sepsis: Plan Impression: 64-year-old female with diabetes and peripheral vascular disease with history of recent osteomyelitis presents now with severe DKA, acute renal failure, and shock with elevated troponin and ST elevations on EKG. 24-hour events: Urine output remains good with improvement in renal indices. Developed A-fib with RVR unresponsive to esmolol last evening was initiated on amiodarone which has resulted in improved rate control but she remains in A-fib. Anticoagulation in the form of IV heparin was added. She had to go back on Joseluis-Synephrine when her heart rates were particularly tachycardic. Recommendation: 1. Neurologic: Encephalopathy likely metabolic in nature. Sedation break today and if does well, may pursue vent liberation. Will need PT and OT once appropriate 2. Cardiovascular: EKG with ST elevation. Cardiac catheterization discussed with Dr. Dick. No occult culprit lesions identified but diffuse disease. Medical management recommended. Recurrent A-fib yesterday now on amiodarone IV as well as IV heparin. Long-term management per cardiology. Discontinue central line and arterial line. 3. Pulmonary: Intubated due to to hemodynamic instability. Flu a positive. Sputum culture now growing staph. Possible post influenza staph pneumonia, see comments below. Will place on SBT. May need to extubate to BiPAP. Will need aggressive pulmonary toilet including incentive spirometry and being upright is much as possible given body habitus 4. Renal: Acute renal failure: Suspect ATN. Associated with hyperkalemia. Appreciate nephrology input. Serum creatinine improving with improved BUN. Electrolytes stable with mired hypercalcemia. Calcium corrects for albumin. 5. GI: No current issues. Tube feeds being held for possible vent liberation. 6. Endocrine: Severe DKA: Patient is noncompliant in the outpatient setting. Hemoglobin A1c elevated at 11. Gap closed and glycemic control achieved with blood sugar less than 250. Will discuss with pharmacy transition to subcutaneous regiment. 7. ID: Patient with recent osteomyelitis. Blood cultures today no growth to date. Continue empiric Zosyn for now. Sputum culture with MRSA, complete vancomycin course for 7 days. Supportive care for influenza. Low-grade fevers overnight but white blood cell count normal. Continue to follow. 8. Heme-onc: Mild anemia. No evidence of acute blood loss and no indication for transfusion currently. Platelet count slightly low. 4 T-score only 1 indicating low probability. Will trend at this point in time. Okay to continue heparin Family will be updated when available Admission and Anticipated Discharge Date Admission Date: May 23, 2024 Subjective Patient is intubated and sedated Review of Systems Review of Systems: Unobtainable due to endotracheal tube Physical Exam Constitutional: + obese and + mechanically ventilated Neck: trachea midline, no thyromegaly Respiratory: normal respiratory effort, lungs clear to auscultation no respiratory distress, no labored breathing and not tachypneic Auscultation: + rhonchi; no wheezes Cardiovascular: RRR, no murmur, no edema Gastrointestinal (Abdomen): normal bowel sounds, soft, nontender, no hepatosplenomegaly Musculoskeletal: Extremities: extremities normal to inspection Skin: no rashes, warm and dry Lymphatic: no cervical lymphadenopathy Results & Data Results & Data Vital Signs (Past 12 Hours) Vital Signs Temp Pulse Resp BP Pulse Ox O2 Del Method FiO2 05/25/24 08:00 99/79 L 05/25/24 08:00 Mechanical Vent 0.3 05/25/24 07:54 38.1 C H 109 H 20 95 05/25/24 07:46 101 H 20 95 30 05/25/24 07:39 38.1 C H 110 H 20 95 05/25/24 07:30 125/70 05/25/24 07:30 125/70 05/25/24 07:15 98/65 L 05/25/24 07:00 109/77 05/25/24 07:00 109/77 05/25/24 05:45 108/71 05/25/24 05:45 38.2 C H 97 H 20 94 05/25/24 05:30 90/65 L 05/25/24 05:30 90/65 L 05/25/24 05:30 90/65 L 05/25/24 05:30 38.1 C H 111 H 20 94 05/25/24 05:24 38.1 C H 94 H 20 94 05/25/24 05:15 103/73 05/25/24 05:08 38.1 C H 140 H 20 93 05/25/24 05:02 38.1 C H 116 H 20 94 05/25/24 05:00 116/72 05/25/24 04:45 108/63 05/25/24 04:45 108/63 05/25/24 04:30 93/59 L 05/25/24 04:26 38.1 C H 90 20 94 05/25/24 04:20 38.1 C H 110 H 20 94 05/25/24 04:15 101/68 05/25/24 04:15 101/68 05/25/24 04:11 38.1 C H 105 H 20 93 05/25/24 04:09 38.1 C H 118 H 20 93 05/25/24 04:00 117/66 05/25/24 04:00 117/66 05/25/24 04:00 117/66 05/25/24 04:00 30 05/25/24 04:00 101 H 91/53 L 05/25/24 03:56 38.0 C H 110 H 20 94 05/25/24 03:53 38.0 C H 101 H 20 94 05/25/24 03:45 107/66 05/25/24 03:41 38.0 C H 89 20 94 05/25/24 03:30 38.0 C H 97 H 20 94 05/25/24 03:30 104/71 05/25/24 03:30 104/71 05/25/24 03:30 104/71 05/25/24 03:15 97/72 L 05/25/24 03:15 38.0 C H 108 H 20 94 05/25/24 03:12 38.0 C H 103 H 20 94 05/25/24 03:00 81/64 L 05/25/24 02:45 88/61 L 05/25/24 02:39 37.9 C H 103 H 20 95 05/25/24 02:30 89/60 L 05/25/24 02:29 116 H 18 96 30 05/25/24 02:21 37.9 C H 123 H 20 94 05/25/24 02:15 37.9 C H 101 H 20 100 05/25/24 02:15 107/69 05/25/24 02:15 107/69 05/25/24 02:06 37.9 C H 104 H 20 95 05/25/24 02:00 98/58 L 05/25/24 01:50 37.9 C H 108 H 20 94 05/25/24 01:47 37.9 C H 106 H 20 94 05/25/24 01:45 94/59 L 05/25/24 01:45 94/59 L 05/25/24 01:38 37.8 C H 111 H 20 94 05/25/24 01:35 37.8 C H 112 H 20 93 05/25/24 01:30 94/66 L 05/25/24 01:30 94/66 L 05/25/24 01:30 94/66 L 05/25/24 01:27 37.8 C H 115 H 20 94 05/25/24 01:15 112/67 05/25/24 01:15 112/67 05/25/24 01:15 112/67 05/25/24 01:00 105/80 05/25/24 00:57 37.8 C H 118 H 20 94 05/25/24 00:45 115/70 05/25/24 00:45 115/70 05/25/24 00:42 37.8 C H 117 H 20 95 05/25/24 00:30 95/64 L 05/25/24 00:27 37.8 C H 112 H 20 94 05/25/24 00:18 37.8 C H 114 H 20 94 05/25/24 00:15 122/74 05/25/24 00:15 122/74 05/25/24 00:09 37.8 C H 112 H 19 94 05/25/24 00:03 37.8 C H 109 H 19 94 05/25/24 00:00 111/72 05/25/24 00:00 111/72 05/25/24 00:00 30 05/25/24 00:00 102 H 102/54 L 05/25/24 00:00 102 H 05/24/24 23:54 37.8 C H 100 H 17 95 05/24/24 23:30 37.8 C H 115 H 20 94 05/24/24 23:30 106/71 05/24/24 23:30 106/71 05/24/24 23:30 106/71 05/24/24 23:20 120 H 20 94 30 05/24/24 23:15 37.8 C H 121 H 20 93 05/24/24 23:15 104/80 05/24/24 23:15 104/80 05/24/24 23:15 104/80 05/24/24 23:00 109/67 05/24/24 23:00 109/67 05/24/24 22:51 37.8 C H 127 H 24 94 05/24/24 22:45 109/68 05/24/24 22:33 37.8 C H 120 H 24 94 05/24/24 22:30 37.8 C H 109 H 24 94 05/24/24 22:30 104/64 05/24/24 22:30 104/64 05/24/24 22:30 104/64 05/24/24 22:15 84/63 L 05/24/24 22:15 84/63 L 05/24/24 22:15 37.8 C H 122 H 24 94 05/24/24 22:12 37.8 C H 108 H 24 94 05/24/24 22:00 103/68 05/24/24 21:57 37.9 C H 122 H 24 94 05/24/24 21:54 37.9 C H 137 H 24 95 05/24/24 21:45 138/62 05/24/24 21:45 138/62 05/24/24 21:33 37.9 C H 117 H 21 95 05/24/24 21:30 108/76 05/24/24 21:30 108/76 05/24/24 21:27 37.9 C H 105 H 21 95 05/24/24 21:18 38.0 C H 117 H 21 94 05/24/24 21:15 123/85 05/24/24 21:15 123/85 05/24/24 21:12 38.0 C H 120 H 21 96 05/24/24 21:00 94/72 L 05/24/24 21:00 38.0 C H 130 H 21 97 05/24/24 20:51 38.0 C H 126 H 24 97 05/24/24 20:30 38.0 C H 117 H 18 96 05/24/24 20:30 91/64 L 05/24/24 20:30 91/64 L 05/24/24 20:30 91/64 L 05/24/24 20:27 38.0 C H 115 H 20 98 05/24/24 20:25 128 H 20 97 30 Critical Care Results & Data Vital Signs (Past 12 Hours) Vital Signs Temp Pulse Resp BP Pulse Ox O2 Del Method FiO2 05/25/24 08:00 99/79 L 05/25/24 08:00 Mechanical Vent 0.3 05/25/24 07:54 38.1 C H 109 H 20 95 05/25/24 07:46 101 H 20 95 30 05/25/24 07:39 38.1 C H 110 H 20 95 05/25/24 07:30 125/70 05/25/24 07:30 125/70 05/25/24 07:15 98/65 L 05/25/24 07:00 109/77 05/25/24 07:00 109/77 05/25/24 05:45 108/71 05/25/24 05:45 38.2 C H 97 H 20 94 05/25/24 05:30 90/65 L 05/25/24 05:30 90/65 L 05/25/24 05:30 90/65 L 05/25/24 05:30 38.1 C H 111 H 20 94 05/25/24 05:24 38.1 C H 94 H 20 94 05/25/24 05:15 103/73 05/25/24 05:08 38.1 C H 140 H 20 93 05/25/24 05:02 38.1 C H 116 H 20 94 05/25/24 05:00 116/72 05/25/24 04:45 108/63 05/25/24 04:45 108/63 05/25/24 04:30 93/59 L 05/25/24 04:26 38.1 C H 90 20 94 05/25/24 04:20 38.1 C H 110 H 20 94 05/25/24 04:15 101/68 05/25/24 04:15 101/68 05/25/24 04:11 38.1 C H 105 H 20 93 05/25/24 04:09 38.1 C H 118 H 20 93 05/25/24 04:00 117/66 05/25/24 04:00 117/66 05/25/24 04:00 117/66 05/25/24 04:00 30 05/25/24 04:00 101 H 91/53 L 05/25/24 03:56 38.0 C H 110 H 20 94 05/25/24 03:53 38.0 C H 101 H 20 94 05/25/24 03:45 107/66 05/25/24 03:41 38.0 C H 89 20 94 05/25/24 03:30 38.0 C H 97 H 20 94 05/25/24 03:30 104/71 05/25/24 03:30 104/71 05/25/24 03:30 104/71 05/25/24 03:15 97/72 L 05/25/24 03:15 38.0 C H 108 H 20 94 05/25/24 03:12 38.0 C H 103 H 20 94 05/25/24 03:00 81/64 L 05/25/24 02:45 88/61 L 05/25/24 02:39 37.9 C H 103 H 20 95 05/25/24 02:30 89/60 L 05/25/24 02:29 116 H 18 96 30 05/25/24 02:21 37.9 C H 123 H 20 94 05/25/24 02:15 37.9 C H 101 H 20 100 05/25/24 02:15 107/69 05/25/24 02:15 107/69 05/25/24 02:06 37.9 C H 104 H 20 95 05/25/24 02:00 98/58 L 05/25/24 01:50 37.9 C H 108 H 20 94 05/25/24 01:47 37.9 C H 106 H 20 94 05/25/24 01:45 94/59 L 05/25/24 01:45 94/59 L 05/25/24 01:38 37.8 C H 111 H 20 94 05/25/24 01:35 37.8 C H 112 H 20 93 05/25/24 01:30 94/66 L 05/25/24 01:30 94/66 L 05/25/24 01:30 94/66 L 05/25/24 01:27 37.8 C H 115 H 20 94 05/25/24 01:15 112/67 05/25/24 01:15 112/67 05/25/24 01:15 112/67 05/25/24 01:00 105/80 05/25/24 00:57 37.8 C H 118 H 20 94 05/25/24 00:45 115/70 05/25/24 00:45 115/70 05/25/24 00:42 37.8 C H 117 H 20 95 05/25/24 00:30 95/64 L 05/25/24 00:27 37.8 C H 112 H 20 94 05/25/24 00:18 37.8 C H 114 H 20 94 05/25/24 00:15 122/74 05/25/24 00:15 122/74 05/25/24 00:09 37.8 C H 112 H 19 94 05/25/24 00:03 37.8 C H 109 H 19 94 05/25/24 00:00 111/72 05/25/24 00:00 111/72 05/25/24 00:00 30 05/25/24 00:00 102 H 102/54 L 05/25/24 00:00 102 H 05/24/24 23:54 37.8 C H 100 H 17 95 05/24/24 23:30 37.8 C H 115 H 20 94 05/24/24 23:30 106/71 05/24/24 23:30 106/71 05/24/24 23:30 106/71 05/24/24 23:20 120 H 20 94 30 05/24/24 23:15 37.8 C H 121 H 20 93 05/24/24 23:15 104/80 05/24/24 23:15 104/80 05/24/24 23:15 104/80 05/24/24 23:00 109/67 05/24/24 23:00 109/67 05/24/24 22:51 37.8 C H 127 H 24 94 05/24/24 22:45 109/68 05/24/24 22:33 37.8 C H 120 H 24 94 05/24/24 22:30 37.8 C H 109 H 24 94 05/24/24 22:30 104/64 05/24/24 22:30 104/64 05/24/24 22:30 104/64 05/24/24 22:15 84/63 L 05/24/24 22:15 84/63 L 05/24/24 22:15 37.8 C H 122 H 24 94 05/24/24 22:12 37.8 C H 108 H 24 94 05/24/24 22:00 103/68 05/24/24 21:57 37.9 C H 122 H 24 94 05/24/24 21:54 37.9 C H 137 H 24 95 05/24/24 21:45 138/62 05/24/24 21:45 138/62 05/24/24 21:33 37.9 C H 117 H 21 95 05/24/24 21:30 108/76 05/24/24 21:30 108/76 05/24/24 21:27 37.9 C H 105 H 21 95 05/24/24 21:18 38.0 C H 117 H 21 94 05/24/24 21:15 123/85 05/24/24 21:15 123/85 05/24/24 21:12 38.0 C H 120 H 21 96 05/24/24 21:00 94/72 L 05/24/24 21:00 38.0 C H 130 H 21 97 05/24/24 20:51 38.0 C H 126 H 24 97 05/24/24 20:30 38.0 C H 117 H 18 96 05/24/24 20:30 91/64 L 05/24/24 20:30 91/64 L 05/24/24 20:30 91/64 L 05/24/24 20:27 38.0 C H 115 H 20 98 05/24/24 20:25 128 H 20 97 30 Lab & Micro Results (Past 24 Hours) RBC 3.56 M/uL (4.20-5.40) L 05/25/24 WBC 9.28 K/ul (4.8-10.8) 05/25/24 Hgb 9.8 g/dl (12.0-16.0) L 05/25/24 Hct 27.3 % (37.0-47.0) L 05/25/24 MCV 76.7 fL (80.0-100.0) L 05/25/24 MCH 27.5 pg (25.0-34.0) 05/25/24 MCHC 35.9 g/dL (32.0-36.0) 05/25/24 RDW Standard Deviation 36.8 fL (36.4-46.3) 05/25/24 RDW Coefficient of Variation 13.1 % (11.5-14.5) 05/25/24 Plt Count 114 K/uL (130-400) L 05/25/24 MPV 11.9 fL (9.4-12.4) 05/25/24 Neutrophils (%) (Auto) 88.9 % 05/25/24 Lymphocytes (%) (Auto) 5.1 % 05/25/24 Monocytes # (Auto) 0.48 K/uL (0.11-0.59) 05/25/24 Eosinophils # (Auto) 0.01 K/uL (0.00-0.50) 05/25/24 Immature Granulocyte % (Auto) 0.6 % 05/25/24 Neutrophils # (Auto) 8.25 K/uL (1.40-6.50) H 05/25/24 Lymphocytes # (Auto) 0.47 K/uL (1.20-3.40) L 05/25/24 Monocytes # (Auto) 0.48 K/uL (0.11-0.59) 05/25/24 Eosinophils # (Auto) 0.01 K/uL (0.00-0.50) 05/25/24 Basophils # (Auto) 0.01 K/uL (0.00-0.20) 05/25/24 Immature Granulocyte # (Auto) 0.06 K/uL (0.01-0.20) 5 Toxic Vacuolation 1+ 05/24/24 Dohle Bodies 1+ 05/24/24 Na 135 mmol/L (136-145) L 05/25/24 K 3.7 mmol/L (3.5-5.1) 05/25/24 Cl 107 mmol/L (98-107) 05/25/24 CO2 23 mmol/L (21-32) 05/25/24 Anion Gap 5 (3-11) 05/25/24 BUN 100 mg/dl (6-23) H 05/25/24 Creatinine 1.99 mg/dl (0.6-1.2) H 05/25/24 BUN/Creatinine Ratio 50.3 (10-20) H 05/25/24 Glu 260 mg/dl (70-99(Fasting)) H 05/25/24 Ca 7.2 mg/dl (8.6-10.3) L 05/25/24 Total Bilirubin 0.4 mg/dl (0.2-1.0) 05/25/24 AST 86 U/L (13-39) H 05/25/24 ALT 35 U/L (7-52) 05/25/24 Alkaline Phosphatase 64 U/L (34-104) 05/25/24 TP 4.2 gm/dl (6.0-8.3) L 05/25/24 Albumin 2.1 gm/dl (3.4-5.0) L 05/25/24 Globulin 2.1 gm/dl (2.5-4.0) L 05/25/24 Albumin/Globulin Ratio 1.0 (0.9-2) 05/25/24 Calcium Level 7.2 mg/dl (8.6-10.3) L 05/25/24 02:34 Prothromb Time International Ratio 1.2 (0.9-1.1) H 05/24/24 19 :02 Microbiology 05/23/24 Unknown Gram Stain - Final Sputum,Vent Suction Sputum Culture - Preliminary Staph aureus MRSA 05/23/24 16:27 Urine Culture - Preliminary Urine,Indwelling Cath No growth - Less than 1,000 colonies/mL, Final report to follow. 05/24/24 10:15 Gram Stain - Final Foot,Right 05/23/24 09:42 Aerobic Blood Culture - Preliminary Blood No growth in Aerobic bottle after 24 hours. Anaerobic Blood Culture - Preliminary No growth in Anaerobic bottle after 24 hours. 05/23/24 10:39 Aerobic Blood Culture - Preliminary Blood No growth in Aerobic bottle after 24 hours. Anaerobic Blood Culture - Preliminary No growth in Anaerobic bottle after 24 hours. Diagnostic Findings (Past 24 Hours) Chest X-Ray 05/24/24 07:00 EXAM: XR chest 1V portable CLINICAL HISTORY: resp failure TECHNIQUE: An X-ray image of the chest is obtained in AP projection. COMPARISON: 12/14/2023 FINDINGS: ET tube with its tip about 1cm from lilo, need repositioning. NG tube with its tip seen reaching left infradiaphragmatic Pulmonary Parenchyma: Left lower lung zone peripheral radio-opaque shadow with blunting of left costophrenic angle Bilateral prominent broncho vascular markings Blunting of right costophrenic angle Heart and Mediastinum: Apparent cardiomegaly Bony Thorax: Bony thorax appears intact without fractures or deformities. Soft Tissues: Soft tissues overlying the chest wall are unremarkable. IMPRESSION: 1. ET tube with its tip about 1cm from lilo, need repositioning (new) 2. NG tube with its tip seen reaching left infradiaphragmatic region(new) 3. Left lower lung zone peripheral radio-opaque shadow with blunting of left costophrenic angle, with blunting of right costophrenic angle , could be pleural effusion (new) 4. Bilateral prominent broncho vascular markings , raising possibility of pulmonary congestion (unchanged). 5. Apparent cardiomegaly (unchanged) Electronically signed by Lianna Fuentes 05-24-2024 08:09 AM Foot X-Ray 05/24/24 12:21 XR foot RT 2V CLINICAL HISTORY: eval 1st MT distal for osteo COMPARISON: 12/14/2023 FINDINGS: There is interval amputation of the third toe. There is interval resection of the distal aspect of the second proximal phalanx. There is possible interval resection of a small amount of the lateral base second middle phalanx. No acute fracture or dislocation. There is soft tissue swelling at the great toe. On the frontal view there is possible early cortical thinning at the distal medial aspect of the first metatarsal. No other evidence of osteomyelitis seen. IMPRESSION: 1. Possible early osteomyelitis distal medial aspect of the first metatarsal. 2. If there is not history of resection of a small portion of the base of the second middle phalanx, there could also be early osteomyelitis at that location. ACT 112: Negative or not required by law. Electronically signed by: Francisco Thomas M.D. 05/24/2024 12:56 PM Chest X-Ray 05/25/24 07:00 EXAM: XR chest 1V portable CLINICAL HISTORY: resp failure TECHNIQUE: X-ray images of the chest were obtained in posteroanterior (PA) projection. COMPARISON: Compared to previous study done at 05/24/2024 FINDINGS: Endotracheal tube is seen at 3.3 cm above the lilo (proper position). NGT is seen insitu (left hypochondrial region). Pulmonary Parenchyma: Mild regression of the previously noted left lower zone opacity with still noted blunted left costophrenic angle. Newly developed right lower zone opacity with blunted right costophrenic angle. Heart and Mediastinum: Apparent Cardiomegaly (stable). Prominent bilateral hilar bronchovascular markings. Bony Thorax: Bony thorax appears intact without fractures or deformities. Soft Tissues: Soft tissues overlying the chest wall are unremarkable. IMPRESSION: 1. Endotracheal tube is seen at 3.3 cm above the lilo (proper position in the current study). 2. Mild regression of the previously noted left lower zone opacity with still noted blunted left costophrenic angle. 3. Newly developed right lower zone opacity with blunted right costophrenic angle. 4. Apparent Cardiomegaly (stable). Electronically signed by Lianna Fuentes 05-25-2024 07:45 AM I & O Totals 24 Hours 05/24/24 05/25/24 05/26/24 06:59 06:59 06:59 Intake Total 6420.675 / 6420.675 5548.776 / 5548.776 20.9 / 20.9 Output Total 1175 / 1175 3250 / 3250 Balance 5245.675 / 5245.675 2298.776 / 2298.776 20.9 / 20.9 Cumulative 05/23/24 09:14 thru 05/25/24 08:13 Intake Total 90858.351 Output Total 4425 Balance 7565.351 RT Ventilator Mngmt (Last Documented) Ventilator Ordered Settings Ventilator Support Mode Assist Control 05/25/24 07:46 Respiratory Rate 20 05/25/24 07:54 Ventilator Tidal Volume 400 05/25/24 07:46 Setting Minute Ventilation 8 05/25/24 07:46 Ventilator Positive Pressure 40 05/24/24 12:00 Support Setting Positive End Expiratory 5 05/25/24 07:46 Pressure Fraction of Inspired Oxygen 0.3 05/25/24 08:00 Machine Comment ETT adjusted to [address] Zamarripa 05/23/24 14:52 Ventilator - PT Measurements Respiratory Rate 20 Exhaled Tidal Volume 400 Minute Ventilation 8 Peak Inspiratory Airway 20 Pressure Mean Airway Pressure 32 Plateau Pressure 17 Respiratory Cycle Inspiratory: 1:2.8 Expiratory Ratio Inspiratory Phase Time 0.80 End-Tidal CO2 31 Static Lung Compliance 33.33 Dynamic Lung Compliance 26.67 Normal Static Lung Compliance 47.00 Patient Measurements Comment FiO2 decreased to 30% at this time, RN aware. Coding Level of Care Code 75584 SUB INP/OBS CARE 3/50MIN Diagnoses Metabolic encephalopathy G93.41 Acute kidney injury N17.9 Sepsis without acute organ dysfunction, due to unspecified organism A41.9 Sepsis acute organ dysfunction status: without acute organ dysfunction Sepsis type: sepsis due to unspecified organism (3) Sepsis Sepsis acute organ dysfunction status: without acute organ dysfunction Sepsis type: sepsis due to unspecified organism Qualified Code(s): A41.9 - Sepsis, unspecified organism
[2024-05-25] MEDS ORDERED: SODIUM PHOSPHATE 3 MMOL/1 ML INFUSION IV STA (08:26)
--- NOTE | 2024-05-25 08:41 | Nephrology Progress Note ---
Date of Service May 25, 2024 Assessment & Plan (1) Acute kidney injury: Plan: * JOLENE due to dehydration, hypotension related to DKI, influenza A infection * Patient required IV contrast administration for evaluation of STEMI. Only small vessel disease found on cardiac catheterization 05/23/24 * Hyperkalemia and AGA have corrected w/ volume resuscitation and IV insulin administration * Cr has improved from 3.87 to 1.99 * Patient is nonoliguric. CXR this am shows mild pulmonary congestion without overt CHF. MIVF has been stopped. FiO2 has been weaned to 30%. Phenylephrine gtt is being weaned * Urine microscopy reviewed. No granular casts reported * Monitor BMP, UO (2) Influenza A: Plan: * Supportive care (3) DKA (diabetic ketoacidosis): Plan: * On insulin gtt * AG has closed * Serum Na corrected as serum glucose improves (4) Shock circulatory: Plan: * On phenylephrine gtt for MAP 65 (5) STEMI (ST elevation myocardial infarction): Plan: * 05/23/24 cardiac cath - only small vessel disease Admission and Anticipated Discharge Date Admission Date: May 23, 2024 Subjective Sedated, mechanically ventilated Review of Systems Review of Systems: Unobtainable due to endotracheal tube Physical Exam Constitutional: + ill appearing Eyes: PERRL, conjunctivae normal, anicteric sclerae Neck: trachea midline, no thyromegaly Cardiovascular: RRR, no murmur, no edema Gastrointestinal (Abdomen): Inspection/Auscultation: abdomen normal to inspection and + hypoactive bowel sounds Percussion/Palpation: abdomen soft Skin: no rashes, warm and dry Results & Data Vital Signs (Past 12 Hours) Vital Signs Temp Pulse Resp BP Pulse Ox O2 Del Method FiO2 05/25/24 08:00 99/79 L 05/25/24 08:00 Mechanical Vent 0.3 05/25/24 07:54 38.1 C H 109 H 20 95 05/25/24 07:46 101 H 20 95 30 05/25/24 07:39 38.1 C H 110 H 20 95 05/25/24 07:30 125/70 05/25/24 07:30 125/70 05/25/24 07:15 98/65 L 05/25/24 07:00 109/77 05/25/24 07:00 109/77 05/25/24 05:45 108/71 05/25/24 05:45 38.2 C H 97 H 20 94 05/25/24 05:30 90/65 L 05/25/24 05:30 90/65 L 05/25/24 05:30 90/65 L 05/25/24 05:30 38.1 C H 111 H 20 94 05/25/24 05:24 38.1 C H 94 H 20 94 05/25/24 05:15 103/73 05/25/24 05:08 38.1 C H 140 H 20 93 05/25/24 05:02 38.1 C H 116 H 20 94 05/25/24 05:00 116/72 05/25/24 04:45 108/63 05/25/24 04:45 108/63 05/25/24 04:30 93/59 L 05/25/24 04:26 38.1 C H 90 20 94 05/25/24 04:20 38.1 C H 110 H 20 94 05/25/24 04:15 101/68 05/25/24 04:15 101/68 05/25/24 04:11 38.1 C H 105 H 20 93 05/25/24 04:09 38.1 C H 118 H 20 93 05/25/24 04:00 117/66 05/25/24 04:00 117/66 05/25/24 04:00 117/66 05/25/24 04:00 30 05/25/24 04:00 101 H 91/53 L 05/25/24 03:56 38.0 C H 110 H 20 94 05/25/24 03:53 38.0 C H 101 H 20 94 05/25/24 03:45 107/66 05/25/24 03:41 38.0 C H 89 20 94 05/25/24 03:30 38.0 C H 97 H 20 94 05/25/24 03:30 104/71 05/25/24 03:30 104/71 05/25/24 03:30 104/71 05/25/24 03:15 97/72 L 05/25/24 03:15 38.0 C H 108 H 20 94 05/25/24 03:12 38.0 C H 103 H 20 94 05/25/24 03:00 81/64 L 05/25/24 02:45 88/61 L 03/05/25 02:39 37.9 C H 103 H 20 95 05/25/24 02:30 89/60 L 05/25/24 02:29 116 H 18 96 30 05/25/24 02:21 37.9 C H 123 H 20 94 05/25/24 02:15 37.9 C H 101 H 20 100 05/25/24 02:15 107/69 05/25/24 02:15 107/69 05/25/24 02:06 37.9 C H 104 H 20 95 05/25/24 02:00 98/58 L 05/25/24 01:50 37.9 C H 108 H 20 94 05/25/24 01:47 37.9 C H 106 H 20 94 05/25/24 01:45 94/59 L 05/25/24 01:45 94/59 L 05/25/24 01:38 37.8 C H 111 H 20 94 05/25/24 01:35 37.8 C H 112 H 20 93 05/25/24 01:30 94/66 L 05/25/24 01:30 94/66 L 05/25/24 01:30 94/66 L 05/25/24 01:27 37.8 C H 115 H 20 94 05/25/24 01:15 112/67 05/25/24 01:15 112/67 05/25/24 01:15 112/67 05/25/24 01:00 105/80 05/25/24 00:57 37.8 C H 118 H 20 94 05/25/24 00:45 115/70 05/25/24 00:45 115/70 05/25/24 00:42 37.8 C H 117 H 20 95 05/25/24 00:30 95/64 L 05/25/24 00:27 37.8 C H 112 H 20 94 05/25/24 00:18 37.8 C H 114 H 20 94 05/25/24 00:15 122/74 05/25/24 00:15 122/74 05/25/24 00:09 37.8 C H 112 H 19 94 05/25/24 00:03 37.8 C H 109 H 19 94 05/25/24 00:00 111/72 05/25/24 00:00 111/72 05/25/24 00:00 30 05/25/24 00:00 102 H 102/54 L 05/25/24 00:00 102 H 05/24/24 23:54 37.8 C H 100 H 17 95 05/24/24 23:30 37.8 C H 115 H 20 94 05/24/24 23:30 106/71 05/24/24 23:30 106/71 05/24/24 23:30 106/71 05/24/24 23:20 120 H 20 94 30 05/24/24 23:15 37.8 C H 121 H 20 93 05/24/24 23:15 104/80 05/24/24 23:15 104/80 05/24/24 23:15 104/80 05/24/24 23:00 109/67 05/24/24 23:00 109/67 05/24/24 22:51 37.8 C H 127 H 24 94 05/24/24 22:45 109/68 05/24/24 22:33 37.8 C H 120 H 24 94 05/24/24 22:30 37.8 C H 109 H 24 94 05/24/24 22:30 104/64 05/24/24 22:30 104/64 05/24/24 22:30 104/64 05/24/24 22:15 84/63 L 05/24/24 22:15 84/63 L 05/24/24 22:15 37.8 C H 122 H 24 94 05/24/24 22:12 37.8 C H 108 H 24 94 05/24/24 22:00 103/68 05/24/24 21:57 37.9 C H 122 H 24 94 05/24/24 21:54 37.9 C H 137 H 24 95 05/24/24 21:45 138/62 05/24/24 21:45 138/62 05/24/24 21:33 37.9 C H 117 H 21 95 05/24/24 21:30 108/76 05/24/24 21:30 108/76 05/24/24 21:27 37.9 C H 105 H 21 95 05/24/24 21:18 38.0 C H 117 H 21 94 05/24/24 21:15 123/85 05/24/24 21:15 123/85 05/24/24 21:12 38.0 C H 120 H 21 96 05/24/24 21:00 94/72 L 05/24/24 21:00 38.0 C H 130 H 21 97 05/24/24 20:51 38.0 C H 126 H 24 97 Laboratory Results Laboratory Results - last 24 hr 05/24/24 05/24/24 05/24/24 07:13 08:29 09:30 WBC RBC Hgb Hct MCV MCH MCHC RDW Std Deviation RDW Coeff of Nichol Plt Count MPV Immature Gran % (Auto) Neut % (Auto) Lymph % (Auto) Mcculloch % (Auto) Eos % (Auto) Baso % (Auto) Neut # (Auto) Lymph # (Auto) Mcculloch # (Auto) Eos # (Auto) Baso # (Auto) Immature Gran # (Auto) Toxic Vacuolation Dohle Bodies PT INR APTT PTT Ratio Heparin Anti-Xa, Unfract Sodium 130 L Potassium 4.1 Chloride 101 Carbon Dioxide 21 Anion Gap 8 BUN 138 H Creatinine 3.12 H Est Cr Clr Drug Dosing 20.3 eGFR 16.16 BUN/Creatinine Ratio 44.2 H Glucose 370 H* POC Glucose (other) 325 H 288 H Calcium 6.8 L Phosphorus 2.1 L Magnesium 2.2 Total Bilirubin AST ALT Alkaline Phosphatase Total Protein Albumin Globulin Albumin/Globulin Ratio Urine Color Urine Appearance Urine pH Ur Specific Dickerson Urine Protein Urine Glucose (UA) Urine Ketones Urine Blood Urine Nitrite Urine Bilirubin Urine Urobilinogen Ur Leukocyte Esterase Urine WBC (Auto) Urine RBC (Auto) U Hyaline Cast (Auto) U Epithel Cells (Auto) Urine Bacteria (Auto) Random Vancomycin 05/24/24 05/24/24 05/24/24 10:22 11:25 12:22 WBC RBC Hgb Hct MCV MCH MCHC RDW Std Deviation RDW Coeff of Nichol Plt Count MPV Immature Gran % (Auto) Neut % (Auto) Lymph % (Auto) Mcculloch % (Auto) Eos % (Auto) Baso % (Auto) Neut # (Auto) Lymph # (Auto) Mcculloch # (Auto) Eos # (Auto) Baso # (Auto) Immature Gran # (Auto) Toxic Vacuolation Dohle Bodies PT INR APTT PTT Ratio Heparin Anti-Xa, Unfract Sodium Potassium Chloride Carbon Dioxide Anion Gap BUN Creatinine Est Cr Clr Drug Dosing eGFR BUN/Creatinine Ratio Glucose POC Glucose (other) 260 H 221 H 183 H Calcium Phosphorus Magnesium Total Bilirubin AST ALT Alkaline Phosphatase Total Protein Albumin Globulin Albumin/Globulin Ratio Urine Color Urine Appearance Urine pH Ur Specific Dickerson Urine Protein Urine Glucose (UA) Urine Ketones Urine Blood Urine Nitrite Urine Bilirubin Urine Urobilinogen Ur Leukocyte Esterase Urine WBC (Auto) Urine RBC (Auto) U Hyaline Cast (Auto) U Epithel Cells (Auto) Urine Bacteria (Auto) Random Vancomycin 05/24/24 05/24/24 05/24/24 13:18 15:23 16:23 WBC RBC Hgb Hct MCV MCH MCHC RDW Std Deviation RDW Coeff of Nichol Plt Count MPV Immature Gran % (Auto) Neut % (Auto) Lymph % (Auto) Mcculloch % (Auto) Eos % (Auto) Baso % (Auto) Neut # (Auto) Lymph # (Auto) Mcculloch # (Auto) Eos # (Auto) Baso # (Auto) Immature Gran # (Auto) Toxic Vacuolation Dohle Bodies PT INR APTT PTT Ratio Heparin Anti-Xa, Unfract Sodium Potassium Chloride Carbon Dioxide Anion Gap BUN Creatinine Est Cr Clr Drug Dosing eGFR BUN/Creatinine Ratio Glucose POC Glucose (other) 158 H 172 H 170 H Calcium Phosphorus Magnesium Total Bilirubin AST ALT Alkaline Phosphatase Total Protein Albumin Globulin Albumin/Globulin Ratio Urine Color Urine Appearance Urine pH Ur Specific Dickerson Urine Protein Urine Glucose (UA) Urine Ketones Urine Blood Urine Nitrite Urine Bilirubin Urine Urobilinogen Ur Leukocyte Esterase Urine WBC (Auto) Urine RBC (Auto) U Hyaline Cast (Auto) U Epithel Cells (Auto) Urine Bacteria (Auto) Random Vancomycin 05/24/24 05/24/24 05/24/24 17:35 18:41 19:02 WBC 8.41 RBC 3.60 L Hgb 10.0 L Hct 27.7 L MCV 76.9 L MCH 27.8 MCHC 36.1 H RDW Std Deviation 37.3 RDW Coeff of Nichol 13.3 Plt Count 113 L D MPV 11.0 Immature Gran % (Auto) 0.7 Neut % (Auto) 87.5 Lymph % (Auto) 6.8 Mcculloch % (Auto) 4.9 Eos % (Auto) 0.0 Baso % (Auto) 0.1 Neut # (Auto) 7.36 H Lymph # (Auto) 0.57 L Mcculloch # (Auto) 0.41 Eos # (Auto) 0.00 Baso # (Auto) 0.01 Immature Gran # (Auto) 0.06 Toxic Vacuolation 1+ Dohle Bodies 1+ PT 12.6 H INR 1.2 H APTT 39 H PTT Ratio 1.4 Heparin Anti-Xa, Unfract Sodium Potassium Chloride Carbon Dioxide Anion Gap BUN Creatinine Est Cr Clr Drug Dosing eGFR BUN/Creatinine Ratio Glucose POC Glucose (other) 175 H 177 H Calcium Phosphorus Magnesium Total Bilirubin AST ALT Alkaline Phosphatase Total Protein Albumin Globulin Albumin/Globulin Ratio Urine Color Urine Appearance Urine pH Ur Specific Dickerson Urine Protein Urine Glucose (UA) Urine Ketones Urine Blood Urine Nitrite Urine Bilirubin Urine Urobilinogen Ur Leukocyte Esterase Urine WBC (Auto) Urine RBC (Auto) U Hyaline Cast (Auto) U Epithel Cells (Auto) Urine Bacteria (Auto) Random Vancomycin 05/24/24 05/24/24 05/24/24 19:17 20:16 21:22 WBC RBC Hgb Hct MCV MCH MCHC RDW Std Deviation RDW Coeff of Nichol Plt Count MPV Immature Gran % (Auto) Neut % (Auto) Lymph % (Auto) Mcculloch % (Auto) Eos % (Auto) Baso % (Auto) Neut # (Auto) Lymph # (Auto) Mcculloch # (Auto) Eos # (Auto) Baso # (Auto) Immature Gran # (Auto) Toxic Vacuolation Dohle Bodies PT INR APTT PTT Ratio Heparin Anti-Xa, Unfract Sodium Potassium Chloride Carbon Dioxide Anion Gap BUN Creatinine Est Cr Clr Drug Dosing eGFR BUN/Creatinine Ratio Glucose POC Glucose (other) 172 H 171 H 197 H Calcium Phosphorus Magnesium Total Bilirubin AST ALT Alkaline Phosphatase Total Protein Albumin Globulin Albumin/Globulin Ratio Urine Color Urine Appearance Urine pH Ur Specific Dickerson Urine Protein Urine Glucose (UA) Urine Ketones Urine Blood Urine Nitrite Urine Bilirubin Urine Urobilinogen Ur Leukocyte Esterase Urine WBC (Auto) Urine RBC (Auto) U Hyaline Cast (Auto) U Epithel Cells (Auto) Urine Bacteria (Auto) Random Vancomycin 05/24/24 05/24/24 05/24/24 21:35 22:18 23:21 WBC RBC Hgb Hct MCV MCH MCHC RDW Std Deviation RDW Coeff of Nichol Plt Count MPV Immature Gran % (Auto) Neut % (Auto) Lymph % (Auto) Mcculloch % (Auto) Eos % (Auto) Baso % (Auto) Neut # (Auto) Lymph # (Auto) Mcculloch # (Auto) Eos # (Auto) Baso # (Auto) Immature Gran # (Auto) Toxic Vacuolation Dohle Bodies PT INR APTT PTT Ratio Heparin Anti-Xa, Unfract Sodium Potassium Chloride Carbon Dioxide Anion Gap BUN Creatinine Est Cr Clr Drug Dosing eGFR BUN/Creatinine Ratio Glucose POC Glucose (other) 199 H 212 H Calcium Phosphorus Magnesium Total Bilirubin AST ALT Alkaline Phosphatase Total Protein Albumin Globulin Albumin/Globulin Ratio Urine Color Yellow Urine Appearance Cloudy A Urine pH 5.0 Ur Specific Dickerson 1.018 Urine Protein 1+ H Urine Glucose (UA) Negative Urine Ketones Negative Urine Blood 3+ H Urine Nitrite Negative Urine Bilirubin Negative Urine Urobilinogen Negative Ur Leukocyte Esterase Negative Urine WBC (Auto) 0-5 Urine RBC (Auto) 11-20 H U Hyaline Cast (Auto) 3-5 H U Epithel Cells (Auto) 0-2 Urine Bacteria (Auto) None Seen Random Vancomycin 05/25/24 05/25/24 05/25/24 00:17 01:15 02:17 WBC RBC Hgb Hct MCV MCH MCHC RDW Std Deviation RDW Coeff of Nichol Plt Count MPV Immature Gran % (Auto) Neut % (Auto) Lymph % (Auto) Mcculloch % (Auto) Eos % (Auto) Baso % (Auto) Neut # (Auto) Lymph # (Auto) Mcculloch # (Auto) Eos # (Auto) Baso # (Auto) Immature Gran # (Auto) Toxic Vacuolation Dohle Bodies PT INR APTT PTT Ratio Heparin Anti-Xa, Unfract Sodium Potassium Chloride Carbon Dioxide Anion Gap BUN Creatinine Est Cr Clr Drug Dosing eGFR BUN/Creatinine Ratio Glucose POC Glucose (other) 224 H 244 H 255 H Calcium Phosphorus Magnesium Total Bilirubin AST ALT Alkaline Phosphatase Total Protein Albumin Globulin Albumin/Globulin Ratio Urine Color Urine Appearance Urine pH Ur Specific Dickerson Urine Protein Urine Glucose (UA) Urine Ketones Urine Blood Urine Nitrite Urine Bilirubin Urine Urobilinogen Ur Leukocyte Esterase Urine WBC (Auto) Urine RBC (Auto) U Hyaline Cast (Auto) U Epithel Cells (Auto) Urine Bacteria (Auto) Random Vancomycin 05/25/24 05/25/24 05/25/24 02:34 03:17 04:14 WBC 9.28 RBC 3.56 L Hgb 9.8 L Hct 27.3 L MCV 76.7 L MCH 27.5 MCHC 35.9 RDW Std Deviation 36.8 RDW Coeff of Nichol 13.1 Plt Count 114 L MPV 11.9 Immature Gran % (Auto) 0.6 Neut % (Auto) 88.9 Lymph % (Auto) 5.1 Mcculloch % (Auto) 5.2 Eos % (Auto) 0.1 Baso % (Auto) 0.1 Neut # (Auto) 8.25 H Lymph # (Auto) 0.47 L Mcculloch # (Auto) 0.48 Eos # (Auto) 0.01 Baso # (Auto) 0.01 Immature Gran # (Auto) 0.06 Toxic Vacuolation Dohle Bodies PT INR APTT PTT Ratio Heparin Anti-Xa, Unfract 0.68 Sodium 135 L Potassium 3.7 Chloride 107 Carbon Dioxide 23 Anion Gap 5 BUN 100 H D Creatinine 1.99 H D Est Cr Clr Drug Dosing 31.8 eGFR 27.72 BUN/Creatinine Ratio 50.3 H Glucose 260 H POC Glucose (other) 256 H 255 H Calcium 7.2 L Phosphorus Magnesium Total Bilirubin 0.4 AST 86 H ALT 35 Alkaline Phosphatase 64 Total Protein 4.2 L Albumin 2.1 L Globulin 2.1 L Albumin/Globulin Ratio 1.0 Urine Color Urine Appearance Urine pH Ur Specific Dickerson Urine Protein Urine Glucose (UA) Urine Ketones Urine Blood Urine Nitrite Urine Bilirubin Urine Urobilinogen Ur Leukocyte Esterase Urine WBC (Auto) Urine RBC (Auto) U Hyaline Cast (Auto) U Epithel Cells (Auto) Urine Bacteria (Auto) Random Vancomycin 14.0 05/25/24 05/25/24 05:10 06:16 WBC RBC Hgb Hct MCV MCH MCHC RDW Std Deviation RDW Coeff of Nichol Plt Count MPV Immature Gran % (Auto) Neut % (Auto) Lymph % (Auto) Mcculloch % (Auto) Eos % (Auto) Baso % (Auto) Neut # (Auto) Lymph # (Auto) Mcculloch # (Auto) Eos # (Auto) Baso # (Auto) Immature Gran # (Auto) Toxic Vacuolation Dohle Bodies PT INR APTT PTT Ratio Heparin Anti-Xa, Unfract Sodium Potassium Chloride Carbon Dioxide Anion Gap BUN Creatinine Est Cr Clr Drug Dosing eGFR BUN/Creatinine Ratio Glucose POC Glucose (other) 246 H 237 H Calcium Phosphorus Magnesium Total Bilirubin AST ALT Alkaline Phosphatase Total Protein Albumin Globulin Albumin/Globulin Ratio Urine Color Urine Appearance Urine pH Ur Specific Dickerson Urine Protein Urine Glucose (UA) Urine Ketones Urine Blood Urine Nitrite Urine Bilirubin Urine Urobilinogen Ur Leukocyte Esterase Urine WBC (Auto) Urine RBC (Auto) U Hyaline Cast (Auto) U Epithel Cells (Auto) Urine Bacteria (Auto) Random Vancomycin PG Care Time/CCT Total # of Minutes Spent Total Time Spent with Patient: Total time spent is greater than 50% in coordination of care (as documented) at patient's floor/unit and/or counseling patient: Coding Level of Care Code 32566 SUB INP/OBS CARE 3/50MIN Diagnoses Acute kidney injury N17.9 Influenza A J10.1 DKA (diabetic ketoacidosis) E11.10 Shock circulatory R57.9 STEMI (ST elevation myocardial infarction) I21.3
[2024-05-25] MEDS: LANTUS PER UNIT CHARGE SC SCH (09:19)
--- NOTE | 2024-05-25 09:32 | Podiatry Consultation ---
Date of Consultation May 25, 2024 Assessment & Plan (1) Osteomyelitis of right foot: Osteomyelitis type: other acute Qualified Code(s): M86.171 - Other acute osteomyelitis, right ankle and foot (2) Uncontrolled type 2 diabetes mellitus with hyperglycemia: (3) Acute osteomyelitis of toe: Laterality: right Qualified Code(s): M86.171 - Other acute osteomyelitis, right ankle and foot Plan Patient was examined and evaluated. Her chart was reviewed. Her wound was examined. This is consistent with a prior area of hyperkeratotic skin that has ulcerated and with the dorsal and plantar ulcerations likely communicating, the first metatarsal head is most likely osteomyelitic. Plain film imaging and MR linda dupont help determine this more definitively once she is more stabilized. For now, she would benefit from simple Betadine wet to dry dressings to keep the wound clean/stable. If this foot is the source of her current comorbidities, we could perform surgery sooner than later. Otherwise, we would default to surgical intervention once she is stabilized. Thank you for the consult, we are happy to help whenever possible. History of Present Illness Reason for Consultation: Right foot suspected osteomyelitis Attending Physician: Tucker Ray MD History of Present Illness Patient seen at bedside this morning. Sedated and on ventilation. Known from our office and prior hospitalizations. Most recently seen on 04/22 outpatient, when her surgical sites at the 3rd and 2nd toes were healed. She had a callus to the first MTPJ without ulceration. She had returned to work but had concerns about her shoes and hours at work, leading to these other digital infections. Now, she is unresponsive to any new questions or subjective findings. Allergies Allergy/AdvReac Type Severity Reaction Status Date / Time No Known Allergies Allergy Verified 05/23/24 10:03 Home Medications Medication Instructions Recorded Confirmed Type ergocalciferol (vitamin D2) 1,250 50,000 unit PO Q14D 12/14/23 05/23/24 History mcg (50,000 unit) capsule insulin glargine 100 unit/mL (3 23 unit subcut UD 12/14/23 05/23/24 History mL) subcutaneous pen (Lantus Solostar U-100 Insulin) metoprolol succinate 50 mg 50 mg PO HS 12/14/23 05/23/24 History tablet,extended release 24 hr risedronate 150 mg tablet 150 mg PO MONTHLY 12/14/23 05/23/24 History tramadol 50 mg tablet 50 mg PO UD PRN Pain 12/14/23 05/23/24 History vit A 7,160 unit-vit C 113 mg-vit 1 tab PO QAM 12/14/23 05/23/24 History E 100 [id number] tablet insulin aspart U-100 100 unit/mL 1 sliding scale dose SC ACHS #10 mL 12/22/23 05/23/24 Rx subcutaneous solution (Novolog U-100 Insulin aspart) aspirin 81 mg tablet,delayed 81 mg PO DAILY #30 tabs 01/14/24 05/23/24 Rx release (Adult Aspirin Regimen) atorvastatin 20 mg tablet 20 mg PO DAILY #90 tabs 01/14/24 05/23/24 Rx gabapentin 600 mg tablet 600 mg PO BID #180 tabs 02/05/24 05/23/24 Rx amlodipine 5 mg tablet (Norvasc) 5 mg PO UD 05/23/24 05/23/24 History empagliflozin 25 mg tablet 25 mg PO UD 05/23/24 05/23/24 History (Jardiance) lisinopril 30 mg tablet 30 mg PO UD 05/23/24 05/23/24 History Patient History Medical History Acute kidney injury Anemia PAD (peripheral artery disease) Sepsis Osteoporosis Hypertension Neuropathy T2DM (type 2 diabetes mellitus) Social History Smoking Status: Unknown if ever smoked Second Hand Exposure: No; Do You Dip or Chew Tobacco: No; Hx Alcohol Use: No Hx Substance Use: No Preferred Language: Samoan Communication Ability: Impaired Communication Ability Comment: pt sedated on ventilator Balance Truing Inspector Required: No Beliefs That Will Affect Care: None Current Living Situation: Spouse Current Living Situation Comment: with spouse Feels Safe at Home: Yes Assistive Devices: None Review of Systems Review of Systems: Unobtainable due to cognitive status and Unobtainable due to endotracheal tube Physical Exam Physical Exam: Lower extremity focused exam: DP/PT pulses non-palpable, likely secondary to significant lower extremity edema. Advanced trophic changes noted, otherwise, including skin atrophy, distal cooling, decreased hair growth, nail dystrophy. CFT brisk to digits. Right third toe amputation well healed, as is right second toe hammer toe repair/bone biopsy incision. Now, plantar first metatarsal head hyperkeratotic skin lesion is ulcerated with extension noted directly dorsal at the level of the MTPJ. There is scant purulent drainage and is dryer today than on clinical images viewed yesterday. No ascending cellulitis noted. Constitutional: well developed, + obese, + mechanically ventilated and + edematous Neck: trachea midline, no thyromegaly Cardiovascular: Extremities: normal capillary refill, + pedal edema and + edema A Fib Skin: + turgor decreased, + ulcer, + skin tigh tening, + wound, + skin atrophy and + erythema; nails not dystrophic Psychiatric: Orientation: + not alert Results & Data Vital Signs (Past 12 Hours) Vital Signs Temp Pulse Resp BP Pulse Ox O2 Del Method FiO2 05/25/24 08:00 99/79 L 05/25/24 08:00 Mechanical Vent 0.3 05/25/24 07:54 38.1 C H 109 H 20 95 05/25/24 07:46 101 H 20 95 30 05/25/24 07:39 38.1 C H 110 H 20 95 05/25/24 07:30 125/70 05/25/24 07:30 125/70 05/25/24 07:15 98/65 L 05/25/24 07:00 109/77 05/25/24 07:00 109/77 05/25/24 05:45 108/71 05/25/24 05:45 38.2 C H 97 H 20 94 05/25/24 05:30 90/65 L 05/25/24 05:30 90/65 L 05/25/24 05:30 90/65 L 05/25/24 05:30 38.1 C H 111 H 20 94 05/25/24 05:24 38.1 C H 94 H 20 94 05/25/24 05:15 103/73 05/25/24 05:08 38.1 C H 140 H 20 93 05/25/24 05:02 38.1 C H 116 H 20 94 05/25/24 05:00 116/72 05/25/24 04:45 108/63 05/25/24 04:45 108/63 05/25/24 04:30 93/59 L 05/25/24 04:26 38.1 C H 90 20 94 05/25/24 04:20 38.1 C H 110 H 20 94 05/25/24 04:15 101/68 05/25/24 04:15 101/68 05/25/24 04:11 38.1 C H 105 H 20 93 05/25/24 04:09 38.1 C H 118 H 20 93 05/25/24 04:00 117/66 05/25/24 04:00 117/05/25/24 04:00 117/66 05/25/24 04:00 30 05/25/24 04:00 101 H 91/53 L 05/25/24 03:56 38.0 C H 110 H 20 94 05/25/24 03:53 38.0 C H 101 H 20 94 05/25/24 03:45 107/66 05/25/24 03:41 38.0 C H 89 20 94 05/25/24 03:30 38.0 C H 97 H 20 94 05/25/24 03:30 104/71 05/25/24 03:30 104/71 05/25/24 03:30 104/71 05/25/24 03:15 97/72 L 05/25/24 03:15 38.0 C H 108 H 20 94 05/25/24 03:12 38.0 C H 103 H 20 94 05/25/24 03:00 81/64 L 05/25/24 02:45 88/61 L 05/25/24 02:39 37.9 C H 103 H 20 95 05/25/24 02:30 89/60 L 05/25/24 02:29 116 H 18 96 30 05/25/24 02:21 37.9 C H 123 H 20 94 05/25/24 02:15 37.9 C H 101 H 20 100 05/25/24 02:15 107/69 05/25/24 02:15 107/69 05/25/24 02:06 37.9 C H 104 H 20 95 05/25/24 02:00 98/58 L 05/25/24 01:50 37.9 C H 108 H 20 94 05/25/24 01:47 37.9 C H 106 H 20 94 05/25/24 01:45 94/59 L 05/25/24 01:45 94/59 L 05/25/24 01:38 37.8 C H 111 H 20 94 05/25/24 01:35 37.8 C H 112 H 20 93 05/25/24 01:30 94/66 L 05/25/24 01:30 94/66 L 05/25/24 01:30 94/66 L 05/25/24 01:27 37.8 C H 115 H 20 94 05/25/24 01:15 112/67 05/25/24 01:15 112/67 05/25/24 01:15 112/67 05/25/24 01:00 105/80 05/25/24 00:57 37.8 C H 118 H 20 94 05/25/24 00:45 115/70 05/25/24 00:45 115/70 05/25/24 00:42 37.8 C H 117 H 20 95 05/25/24 00:30 95/64 L 05/25/24 00:27 37.8 C H 112 H 20 94 05/25/24 00:18 37.8 C H 114 H 20 94 05/25/24 00:15 122/74 05/25/24 00:15 122/74 05/25/24 00:09 37.8 C H 112 H 19 94 05/25/24 00:03 37.8 C H 109 H 19 94 05/25/24 00:00 111/72 05/25/24 00:00 111/72 05/25/24 00:00 30 05/25/24 00:00 102 H 102/54 L 05/25/24 00:00 102 H 05/24/24 23:54 37.8 C H 100 H 17 95 05/24/24 23:30 37.8 C H 115 H 20 94 05/24/24 23:30 106/71 05/24/24 23:30 106/71 05/24/24 23:30 106/71 05/24/24 23:20 120 H 20 94 30 05/24/24 23:15 37.8 C H 121 H 20 93 05/24/24 23:15 104/80 05/24/24 23:15 104/80 05/24/24 23:15 104/80 05/24/24 23:00 109/67 05/24/24 23:00 109/67 05/24/24 22:51 37.8 C H 127 H 24 94 05/24/24 22:45 109/68 05/24/24 22:33 37.8 C H 120 H 24 94 05/24/24 22:30 37.8 C H 109 H 24 94 05/24/24 22:30 104/64 05/24/24 22:30 104/64 05/24/24 22:30 104/64 05/24/24 22:15 84/63 L 05/24/24 22:15 84/63 L 05/24/24 22:15 37.8 C H 122 H 24 94 05/24/24 22:12 37.8 C H 108 H 24 94 05/24/24 22:00 103/68 05/24/24 21:57 37.9 C H 122 H 24 94 05/24/24 21:54 37.9 C H 137 H 24 95 05/24/24 21:45 138/62 05/24/24 21:45 138/62 05/24/24 21:33 37.9 C H 117 H 21 95
[2024-05-25] MEDS: SODIUM PHOSPHATE 15 MMOL in SODIUM CHLORIDE 0.9% 250 ML IV ONE (10:01)
--- NOTE | 2024-05-25 10:59 | Pharmacy Report ---
Pharmacy Glycemic Short Note 2 - Date of Service May 25, 2024 - Glycemic Short BSG Results (Last 24 hours): 05/24/24 05/24/24 05/24/24 10:22 11:25 12:22 Glucose POC Glucose POC Glucose (other) 260 H 221 H 183 H 05/24/24 05/24/24 05/24/24 13:18 15:23 16:23 Glucose POC Glucose POC Glucose (other) 158 H 172 H 170 H 05/24/24 05/24/24 05/24/24 17:35 18:41 19:17 Glucose POC Glucose POC Glucose (other) 175 H 177 H 172 H 05/24/24 05/24/24 05/24/24 20:16 21:22 22:18 Glucose POC Glucose POC Glucose (other) 171 H 197 H 199 H 05/24/24 05/25/24 05/25/24 23:21 00:17 01:15 Glucose POC Glucose POC Glucose (other) 212 H 224 H 244 H 05/25/24 05/25/24 05/25/24 02:17 02:34 03:17 Glucose 260 H POC Glucose POC Glucose (other) 255 H 256 H 05/25/24 05/25/24 05/25/24 04:14 05:10 06:16 Glucose POC Glucose POC Glucose (other) 255 H 246 H 237 H 05/25/24 05/25/24 08:25 10:37 Glucose POC Glucose 228 H POC Glucose (other) 241 H OUTPATIENT ANTIDIABETIC REGIMEN: * empagliflozin 25mg PO daily * Lantus 23 units SQ BID (vs. 46 units daily) * Novolog TIDM HbA1C: 11.2% 05/24/24 (est avg BSG ~275mg/dL) ASSESSMENT: 05/25 * Patient remains intubated this AM, however sedation being held in anticipation of possible extubation later today * Pressor support continues but has been weaned (phenylephrine at 0.2mcg/kg/min) * Pt did experience a fib yesterday evening leading to initiation of amiodarone and heparin gtts (both mixed in D5W) * BSGs in 200s this AM, acceptable per current plan of care. * Per discussion at multidisciplinary rounds, pt will be transitioned off the IV insulin infusion this AM. Insulin drip running 2.6-4.4units/hr over last 12 hrs with higher rates coinciding with addition of D5W containing IV meds. Will escalate Lantus and Novolog doses to "high" stress dosing based upon weight given current insulin needs. 05/24 * Patient remains intubated and sedated this AM. * Pressor support continues (phenylephrine @1.5mcg/kg/min) * BSGs have trending down into the 300s this AM and AG acidosis has resolved (AG = 8 and Bicarb 21) * Renal fxn improving, SCr decreasing and UOP increasing * Patient discussed on multidisciplinary rounds this AM. Patient will continue on IV insulin infusion at this time, however will add some basal insulin today as this will make transition to SQ regimen easier in the near future. Per Lump Roller, BSGs in 200s acceptable for this patient given A1c and BSGs on presentation. Nutrition to begin today, [employer] currently working up a plan. Dextrose containing IVFs will not be utilized given addition of nutrition. May need to add dextrose to maint IVFs if BSGs do fall unexpectedly. 05/23 * Pt is a 64 year old female admitted with DKA and metabolic encephalopathy. History of DM2 on insulin therapy at home. Pharmacy consulted to assist with glycemic management/drip transition. * Initial labs: BSG-1467, AG-27, bicarb-10, pH-7.02. Pt initiated on an insulin drip per DKA protocol. Currently intubated and sedated and requiring vasopressor support. * Continue insulin infusion per DKA/HHS protocol until gap closed. Potassium containing IVF started and switch to dextrose containing IVF once BSG within goal range. PLAN FOR INPATIENT GLYCEMIC CONTROL: * Hold outpatient oral diabetes medications * DC IV insulin infusion * Basal insulin * Increase Lantus 23 units SQ BID * Bolus insulin * Novolog SQ Q 4 hrs initially given transition off IV insulin infusion * Goal range: 120 - 160mg/dL * Correction factor: 18mg/dL/unit * Nutritional / Prandial insulin per carb ratio of 1 unit per 6 grams CHO
--- NOTE | 2024-05-25 11:31 | Pharmacy Report ---
Pharmacy PK ABX Note - Date of Service May 25, 2024 - Assessment and Plan Assessment * 64 year old F receiving VANCOMYCIN + ZOSYN for treatment of CAP as well as recent h/o R foot osteo. * Pertinent microbiologic data includes: Negative MRSA Nasal Swab; + MRSA growin g in sputum cx (vent suction cx); blood and urine cx's no growth to date; surface wound cx obtained from R foot (however these are not reliable for identification of infecting organism). Foot Xray ready as possible early osteo. Prior foot cx's had growing GBS, finegoldia, gemella and strep intermedius. Podiatry has been consulted. Possible MRI at a later date? * Day # 2 of antimicrobial therapy. * Patient did present with JOLENE which continues to improve rapidly (SCr 3.87 --> 3.12 --> 1.99; UOP ~ 5L last 24 hrs) Plan Vancomycin * Random vanco level this AM 14 @0234; redosing needed * Will give 1750mg (~17.5mg/kg) x 1 dose and recheck random level late this evening given rapidly changing renal fxn. If this random level is < 20, will give 750mg IV vancomycin x 1. * AUC/YANETH is the preferred PK/PD target for vancomycin - however patient is not currently a candidate for this method due to severe JOLENE and changing renal fxn. Will continue to dose per random levels until renal fxn stabilizes. Of note, baseline SCr appears to be ~0.8 Pharmacy will continue to follow and will adjust dose/frequency as necessary. Thank you. Pharmacy has transitioned to AUC monitoring for vancomycin. AUC/YANETH is the preferred PK/PD target and is associated with decreased risk of nephrotoxicity compared to traditional trough targets.
--- NOTE | 2024-05-25 15:53 | Electrocardiogram Report ---
Test Reason : Blood Pressure : */* mmHG Vent. Rate : 142 BPM Atrial Rate : * BPM P-R Int : * ms QRS Dur : 90 ms QT Int : 296 ms P-R-T Axes : * -3 125 degrees QTcB Int : 455 ms Atrial fibrillation with rapid ventricular response Minimal voltage criteria for LVH, may be normal variant ( Pilo product ) Septal infarct (cited on or before 14-Dec-2023) When compared with ECG of 23-May-2024 10:25, (unconfirmed) Atrial fibrillation has replaced Sinus rhythm Vent. rate has increased by 77 bpm QRS duration has decreased Borderline criteria for Lateral infarct are no longer Present T wave amplitude has decreased in Inferior leads Nonspecific T wave abnormality, worse in Lateral leads Serial changes of evolving Inferior infarct Confirmed by Vineet Gutierrez ([id number]) on 05/25/2024 3:52:29 PM Referred By: REFERRED SELF Confirmed By: Vineet Gutierrez
--- NOTE | 2024-05-25 16:03 | Cardiology Progress Note ---
Date of Service May 25, 2024 Assessment & Plan (1) Non-ST elevation MT (NSTEMI): Plan: Small vessel disease not amenable to PCI. Preserved EF. No significant valvular pathology. Mildly dilated right heart with preserved function. Probably secondary to pulmonary hypertension and obstructive sleep apnea. Once she is able to take oral medications then a low-dose aspirin, statin, beta- giana, and TOR inhibitor/ARB should be restarted. With her current renal dysfunction she may not be able to restart the TOR/ARB. She should also participate in cardiac rehab once that she is discharged and back to normal capabilities. Do not plan any further cardiac studies at this time. (2) Atherogenic dyslipidemia: Plan: Patient is high risk. High intensity statin therapy recommended. Previously on a atorvastatin 20 mg daily. (3) Shock circulatory: Plan: At this point she seems to be maintaining an adequate blood pressure. She previously was on metoprolol succinate ER 50 mg daily. We can consider resuming this medication beginning at a lower dose (25 mg daily), and titrating up as tolerated. (4) PAF (paroxysmal atrial fibrillation): Plan: Once the amiodarone protocol has been completed I would suggest we try switching her to beta-giana (metoprolol succinate ER 25 mg daily). Of course, this will require that she is able to swallow so it does not seem like were quite there. We could use IV metoprolol if preferred while we wait for her to be able to take oral medications. She may not remain in A-fib once her other illnesses have improved. I would recommend that she remain on a heparin drip until she can take oral anticoagulation. At some point we could consider DC cardioversion but we would need to get a DEVON to exclude atrial thrombus. This can be done in the future as an outpatient if necessary. Admission and Anticipated Discharge Date Admission Date: May 23, 2024 Subjective Patient seen in the ICU. Wearing facemask. I did not awaken her. She is in atrial fibrillation on the monitor. Rates ranging from the 70s to the low 110s. No sustained tachycardia. On amiodarone drip. She has also been on fentanyl and Versed although I am not sure when she last received it. Has been on a heparin drip. Her Joseluis-Synephrine was discontinued and she has evidently maintained an adequate blood pressure. She is also receiving insulin. No additional cardiac events. Review of Systems Review of Systems: Negative except as per HPI Physical Exam Constitutional: Obese. Chronically ill-appearing. Neck: No JVD Respiratory: Bilateral crackles. Otherwise clear. Cardiovascular: Irregular rhythm with a tachycardic rate. No gallops, rubs, or murmurs. No significant edema. Neurologic: Was sedated. Now somnolent. Results & Data Vital Signs (Past 12 Hours) Vital Signs Temp Pulse Resp BP Pulse Ox O2 Del Method FiO2 05/25/24 15:16 79 21 94 30 05/25/24 12:27 37.8 C H 127 H 25 H 94 BiPAP 0.3 05/25/24 12:03 37.9 C H 121 H 28 H 94 05/25/24 12:01 87/67 L 05/25/24 12:01 87/67 L 05/25/24 12:01 87/67 L 05/25/24 11:54 37.9 C H 21 93 05/25/24 11:48 37.9 C H 25 H 94 05/25/24 11:44 130 H 22 93 30 05/25/24 11:33 37.9 C H 117 H 19 95 05/25/24 11:30 117/81 05/25/24 11:24 37.9 C H 127 H 22 91 05/25/24 11:00 106/69 05/25/24 11:00 37.8 C H 121 H 24 93 05/25/24 10:51 37.8 C H 120 H 23 93 05/25/24 10:30 37.8 C H 113 H 26 H 92 05/25/24 10:30 107/58 L 05/25/24 10:15 37.8 C H 126 H 27 H 89 L 05/25/24 10:03 37.8 C H 124 H 25 H 92 05/25/24 10:00 94/60 L 05/25/24 10:00 94/60 L 05/25/24 10:00 94/60 L 05/25/24 09:57 37.8 C H 106 H 23 92 05/25/24 09:51 37.9 C H 115 H 21 92 05/25/24 09:30 102/65 05/25/24 09:30 102/65 05/25/24 09:30 37.9 C H 115 H 23 92 05/25/24 09:27 37.9 C H 121 H 23 92 05/25/24 09:06 38.0 C H 114 H 24 92 05/25/24 09:00 100/76 05/25/24 08:45 38.0 C H 106 H 22 93 05/25/24 08:30 38.0 C H 107 H 22 93 05/25/24 08:30 112/71 05/25/24 08:30 112/71 05/25/24 08:30 112/71 05/25/24 08:15 38.1 C H 123 H 21 94 05/25/24 08:03 38.1 C H 109 H 20 95 05/25/24 08:00 99/79 L 05/25/24 08:00 0.3 05/25/24 08:00 99/79 L 05/25/24 08:00 Mechanical Vent 0.3 05/25/24 07:54 38.1 C H 109 H 20 95 05/25/24 07:46 101 H 20 95 30 05/25/24 07:39 38.1 C H 110 H 20 95 05/25/24 07:30 125/70 05/25/24 07:30 125/70 05/25/24 07:15 98/65 L 05/25/24 07:00 109/77 05/25/24 07:00 109/77 05/25/24 05:45 108/71 05/25/24 05:45 38.2 C H 97 H 20 94 05/25/24 05:30 90/65 L 05/25/24 05:30 90/65 L 05/25/24 05:30 90/65 L 05/25/24 05:30 38.1 C H 111 H 20 94 05/25/24 05:24 38.1 C H 94 H 20 94 05/25/24 05:15 103/73 05/25/24 05:08 38.1 C H 140 H 20 93 05/25/24 05:02 38.1 C H 116 H 20 94 05/25/24 05:00 116/72 05/25/24 04:45 108/63 05/25/24 04:45 108/63 05/25/24 04:30 93/59 L 05/25/24 04:26 38.1 C H 90 20 94 05/25/24 04:20 38.1 C H 110 H 20 94 05/25/24 04:15 101/68 05/25/24 04:15 101/68 05/25/24 04:11 38.1 C H 105 H 20 93 05/25/24 04:09 38.1 C H 118 H 20 93 05/25/24 04:00 117/66 05/25/24 04:00 117/05/25/24 04:00 117/05/25/24 04:00 30 05/25/24 04:00 101 H 91/53 L 05/25/24 03:56 38.0 C H 110 H 20 94 PG Care Time/CCT Total # of Minutes Spent Total Time Spent with Patient: Total time spent is greater than 50% in coordination of care (as documented) at patient's floor/unit and/or counseling patient: Coding Level of Care Code 04008 SUB INP/OBS CARE 2/35MIN Diagnoses Non-ST elevation MT (NSTEMI) I21.4 Atherogenic dyslipidemia E78.5 Shock circulatory R57.9 PAF (paroxysmal atrial fibrillation) I48.0
--- NOTE | 2024-05-25 17:51 | Hospitalist Progress Note ---
Date of Service May 25, 2024 Assessment & Plan (1) Metabolic encephalopathy: (2) DKA (diabetic ketoacidosis): (3) Uncontrolled type 2 diabetes mellitus with hyperglycemia: (4) Influenza A: (5) Non-ST elevation VT (NSTEMI): (6) Acute kidney injury: (7) Hypertension: (8) PAD (peripheral artery disease): Plan Ms. Hay is a 64F with PMHx of Uncontrolled T2DM on Insulin with Neuropathy, PAD, and HTN who presents to the ED for altered mental status. HPI noted for cough and congestion since found to be Flu A positive in ER. It is reported she has not taken insulin since and became delirious on Thursday. She is noted to have a glucose of 1439 and multiple electrolyte abnormalities. Patient went to skilled labor due to elevated troponins and inferior wall EKG changes. No PCI indicated and findings suggesting of Type II NSTEMI #Metabolic Encephalopathy 2/2 Multifactorial -- Diabetic Ketoacidosis/Influenza A/diabetic foot infection osteomyelitis first metatarsal right foot -Patient with severe sepsis requiring intubation ventilation and pressor support broad-spectrum antibiotics specifically covering concern for diabetic foot infection X-ray of foot reveals concern for osteomyelitis podiatric medicine is consulted with certainly she will need to be stable before considering any surgical intervention #Metabolic Acidosis 2/2 Diabetic Ketoacidosis//Uncontrolled T2DM - A1c 11.1: -Resolving still with marked uncontrolled glucose with levels being elevated continue to follow with pharmacy oversight Anion gap is closed #Influenza A: -CXR noted atelectasis vs L base PNA; patient remains on antibiotics of Zosyn and vancomycin - Sputum culture positive for Staohylococcus aureus - Currently on vancomycin and zosyn #Type II NSTEMI 2/2 atrial fibrillation - patient to skilled labor with Dr. Dick - no PCI indicated -Hold home ASA and Atorvastatin while intubated; non-oral options to be determined upon further recommendations -Cardiology following - recommends high dose statin transition from amiodarone to metoprolol when she is able to take p.o. -Cardiac catheterization revealing diffuse small vessel disease. -Echocardiogram showing upper limit normal EF with normal LV size and atrial size. The right ventricle is borderline enlarged with mild tricuspid regurgitation. RV function is intact #Atrial fibrillation patient required amiodarone drip to control rates that she is on heparin at this time once stable condensed version to beta-blockers preferred by cardiology #Acute Kidney Injury/Hyponatremia/Hyperkalemia: -Multifactorial - significant dehydration 2/2 hyperglycemia and influenza A and possible ATN; baseline 0.7 -Received initial fluid bolus; will require routine labs for monitoring -Nephrology consulted -Improving, BUN currently 138 and creatinine currently 3.12 #HTN: -Acutely ill with hypotension and requiring pressor support -Hold home Norvasc and Toprol XL while covering from sepsis; per last D/C she was D/Cd from Lisinopril given previous JOLENE 2/2 ATN this will need verified if remains off -Blood pressures have been stable with current management #History of OM R Foot with Previous Amputations (Dec-Feb 2024): - R foot X-ray was ordered and showing signs of possible early osteomyelitis. Culture shows gram-positive's - Continue vancomycin and Zosyn. - Continue wound care - Further surgical management to be determined once patient becomes more stable #DVT Prophylaxis: -Heparin SC Admission and Anticipated Discharge Date Admission Date: May 23, 2024 Subjective Patient is seen postextubation she was in mild distress phenylephrine has been weaned off. She is having rhonchorous breath sounds but she was maintaining saturations and blood pressure Physical Exam Physical Exam: Exam finds her to be followed able to follow commands but she is Peripheral third spaced edema her card exam is tachycardic but appears to be better rate controlled now that she is on amiodarone drip her lungs are coarse breath sounds bilaterally her abdomen NABS and soft and her foot wound has a dressing in place Results & Data Results & Data Vital Signs (Past 12 Hours) Vital Signs Temp Pulse Resp BP Pulse Ox O2 Del Method FiO2 05/25/24 15:16 79 21 94 30 05/25/24 12:27 100.0 F H 127 H 25 H 94 BiPAP 0.3 05/25/24 12:03 100.2 F H 121 H 28 H 94 05/25/24 12:01 87/67 L 05/25/24 12:01 87/67 L 05/25/24 12:01 87/67 L 05/25/24 11:54 100.2 F H 21 93 05/25/24 11:48 100.2 F H 25 H 94 05/25/24 11:44 130 H 22 93 30 05/25/24 11:33 100.2 F H 117 H 19 95 03/05/25 11:30 117/81 05/25/24 11:24 100.2 F H 127 H 22 91 05/25/24 11:00 106/69 05/25/24 11:00 100.0 F H 121 H 24 93 05/25/24 10:51 100.0 F H 120 H 23 93 05/25/24 10:30 100.0 F H 113 H 26 H 92 05/25/24 10:30 107/58 L 05/25/24 10:15 100.0 F H 126 H 27 H 89 L 05/25/24 10:03 100.0 F H 124 H 25 H 92 05/25/24 10:00 94/60 L 05/25/24 10:00 94/60 L 05/25/24 10:00 94/60 L 05/25/24 09:57 100.0 F H 106 H 23 92 05/25/24 09:51 100.2 F H 115 H 21 92 05/25/24 09:30 102/65 05/25/24 09:30 102/65 05/25/24 09:30 100.2 F H 115 H 23 92 05/25/24 09:27 100.2 F H 121 H 23 92 05/25/24 09:06 100.4 F H 114 H 24 92 05/25/24 09:00 100/76 05/25/24 08:45 100.4 F H 106 H 22 93 05/25/24 08:30 100.4 F H 107 H 22 93 05/25/24 08:30 112/71 05/25/24 08:30 112/71 05/25/24 08:30 112/71 05/25/24 08:15 100.6 F H 123 H 21 94 05/25/24 08:03 100.6 F H 109 H 20 95 05/25/24 08:00 99/79 L 05/25/24 08:00 0.3 05/25/24 08:00 99/79 L 05/25/24 08:00 Mechanical Vent 0.3 05/25/24 07:54 100.6 F H 109 H 20 95 05/25/24 07:46 101 H 20 95 30 05/25/24 07:39 100.6 F H 110 H 20 95 05/25/24 07:30 125/70 03/05/25 07:30 125/70 05/25/24 07:15 98/65 L 05/25/24 07:00 109/77 05/25/24 07:00 109/77 Laboratory Results Reviewed CBC Reviewed chemistry Discussed case with podiatry PG Care Time/CCT Total # of Minutes Spent Total Time Spent with Patient: Total time spent is greater than 50% in coordination of care (as documented) at patient's floor/unit and/or counseling patient: Coding Level of Care Code 75980 SUB INP/OBS CARE 3/50MIN Diagnoses Metabolic encephalopathy G93.41 DKA (diabetic ketoacidosis) E11.10 Diabetes mellitus type: type 2 Uncontrolled type 2 diabetes mellitus with hyperglycemia E11.65 Influenza A J10.1 Non-ST elevation VT (NSTEMI) I21.4 Acute kidney injury N17.9 Primary hypertension I10 Hypertension type: primary hypertension PAD (peripheral artery disease) I73.9 (2) DKA (diabetic ketoacidosis) Diabetes mellitus type: type 2 (7) Hypertension Hypertension type: primary hypertension Qualified Code(s): I10 - Essential (primary) hypertension
--- NOTE | 2024-05-25 18:02 | Hospitalist Progress Note ---
Date of Service May 25, 2024 Assessment & Plan (1) Metabolic encephalopathy: (2) DKA (diabetic ketoacidosis): (3) Influenza A: (4) Acute kidney injury: (5) Hypertension: (6) PAF (paroxysmal atrial fibrillation): (7) Acute osteomyelitis of toe: Plan Ms. Hay is a 64F with PMHx of Uncontrolled T2DM on Insulin with Neuropathy, PAD, and HTN who presents to the ED for altered mental status. HPI noted for cough and congestion since found to be Flu A positive in ER. It is reported she has not taken insulin since and became delirious on Thursday. She is noted to have a glucose of 1439 and multiple electrolyte abnormalities. Patient went to laborer/key man due to elevated troponins and inferior wall EKG changes. No PCI indicated and findings suggesting of Type II NSTEMI #Metabolic Encephalopathy 2/2 Multifactorial -- Diabetic Ketoacidosis/Influenza A/Dehydration/possible diabetic foot infection osteomyelitis -Patient decompensated while in the ED with hypotension and bradycardia. Ultimately required intubation and the initiation of pressor support while correcting acidosis. -Patient currently off ventilator and pressors, and being maintained with BiPap. #Metabolic Acidosis 2/2 Diabetic Ketoacidosis//Uncontrolled T2DM - A1c 11.2: -Glucose noted 1439; Lactate 2.4; K 6.3 on admission -Received fluid boluses in ED; bicarb; intubation -DKA protocol with pharmacy assistance routine labs for glucose monitoring and electrolyte adjustment as glucose improves -Anion gap is closed -Glucose levels currently in low to mid 200s. #Influenza A: -CXR noted atelectasis vs L base PNA; procal is elevated a 1.66; WBC 14.42 on admission - chest xray 05/25/24 showing mild regression of the left lower zone opacity and newly developed right lower zone opacity, blunted costophrenic angles b ilaterally. - Sputum culture positive for MRSA - Currently being managed with vancomycin and zosyn #Type II NSTEMI 2/2 Above -EKG with acute elevations in II, III, aVF - patient to laborer/key man with Dr. Dick - no PCI indicated -Hold home ASA and Atorvastatin while intubated; non-oral options to be determined upon further recommendations -Cardiac catheterization revealed diffuse small vessel disease. -Echocardiogram revealed upper limit normal EF with normal LV size and atrial size. The right ventricle is borderline enlarged with mild tricuspid regurgitation. RV function is intact -Cardiology following - recommending starting high dose statin, low dose aspirin, beta-giana, as well as, ann/arb -depending on renal function. (once patient can take PO medications) #PAF/HTN -Acutely ill with hypotension and requiring pressor support upon admission -Hold home Norvasc and Toprol XL while intubated and acutely ill; per last D/C she was D/Cd from Lisinopril given previous JOLENE 2/2 ATN this will need verified if remains off -Cardiology/Critical care following -Continue amiodarone protocol. Recommending IV/PO metoprolol once protocol complete. On heparin for anticoagulation. #Acute Kidney Injury/Hyponatremia/Hyperkalemia: -Multifactorial - significant dehydration 2/2 hyperglycemia and influenza A and possible ATN; baseline 0.7 -Received initial fluid bolus; will require routine labs for monitoring -Nephrology following -Renal function improving, creatinine 1.99 #Acute Osteomyelitis of Toe/History of OM R Foot with Previous Amputations (Dec- Feb 2024): - meropenem d/c; on vancomycin & zosyn - R foot X-ray was ordered and showing signs of possible early osteomyelitis. - Podiatry consulted and first metatarsal head of r foot is likely osteomyelitic, recommending wound care and deferring imaging and surgical management until patient becomes more stable unless needed sooner. #DVT Prophylaxis: -Heparin SC #Disposition: -ICU Admission and Anticipated Discharge Date Admission Date: May 23, 2024 Subjective Unable to to obtain patient history. She is extubated and responded to verbal stimuli at time of exam. is present at time of exam. He reports he was just discharged from the hospital and a long history of noncompliance with diabetic diet and medications with his . He has no questions, complaints, concerns. Review of Systems Review of Systems: Unable to obtain. Physical Exam Physical Exam: General: (+) biPaP (+) obese (+) ill appearing HEENT: normocephalic, atraumatic; Neck: supple; no lymphadenopathy; trachea midline Skin: warm, dry without signs of tenting; no cyanosis; no rashes, bruising, lesions, or erythema noted CV: (+) irregular rhythm (+) tachycardic ; S1/S2 normal; no murmurs/rubs/gallops; Lungs: no acute respiratory distress; symmetrical chest wall expansion; (+) rales present bilaterally ABD: Soft, NTP; Hypoactive BS present; no rebound/guarding; no distention MSK: no tics or fasciculations; no edema noted in the LEs b/l, nonerythematous; Right foot/toe with dressing in place Neuro:(+) responding with head nod to verbal stimuli Results & Data Results & Data Vital Signs (Past 12 Hours) Temperature, pulse, blood pressure, oxygen saturation, respiratory rate reviewed Vital Signs Temp Pulse Resp BP Pulse Ox O2 Del Method FiO2 05/25/24 15:16 79 21 94 30 05/25/24 12:27 100.0 F H 127 H 25 H 94 BiPAP 0.3 05/25/24 12:03 100.2 F H 121 H 28 H 94 05/25/24 12:01 87/67 L 05/25/24 12:01 87/67 L 05/25/24 12:01 87/67 L 05/25/24 11:54 100.2 F H 21 93 05/25/24 11:48 100.2 F H 25 H 94 05/25/24 11:44 130 H 22 93 30 05/25/24 11:33 100.2 F H 117 H 19 95 05/25/24 11:30 117/81 05/25/24 11:24 100.2 F H 127 H 22 91 05/25/24 11:00 106/69 05/25/24 11:00 100.0 F H 121 H 24 93 05/25/24 10:51 100.0 F H 120 H 23 93 05/25/24 10:30 100.0 F H 113 H 26 H 92 05/25/24 10:30 107/58 L 05/25/24 10:15 100.0 F H 126 H 27 H 89 L 05/25/24 10:03 100.0 F H 124 H 25 H 92 05/25/24 10:00 94/60 L 05/25/24 10:00 94/60 L 05/25/24 10:00 94/60 L 05/25/24 09:57 100.0 F H 106 H 23 92 05/25/24 09:51 100.2 F H 115 H 21 92 05/25/24 09:30 102/65 05/25/24 09:30 102/65 05/25/24 09:30 100.2 F H 115 H 23 92 05/25/24 09:27 100.2 F H 121 H 23 92 05/25/24 09:06 100.4 F H 114 H 24 92 05/25/24 09:00 100/76 05/25/24 08:45 100.4 F H 106 H 22 93 05/25/24 08:30 100.4 F H 107 H 22 93 05/25/24 08:30 112/71 05/25/24 08:30 112/71 05/25/24 08:30 112/71 05/25/24 08:15 100.6 F H 123 H 21 94 05/25/24 08:03 100.6 F H 109 H 20 95 05/25/24 08:00 99/79 L 05/25/24 08:00 0.3 05/25/24 08:00 99/79 L 05/25/24 08:00 Mechanical Vent 0.3 05/25/24 07:54 100.6 F H 109 H 20 95 05/25/24 07:46 101 H 20 95 30 05/25/24 07:39 100.6 F H 110 H 20 95 05/25/24 07:30 125/70 05/25/24 07:30 125/70 05/25/24 07:15 98/65 L 05/25/24 07:00 109/77 05/25/24 07:00 109/77 05/25/24 05:45 108/71 05/25/24 05:45 100.8 F H 97 H 20 94 Laboratory Results CBC, CMP reviewed Diagnostic Findings Chest x-ray reviewed PG Care Time/CCT Total # of Minutes Spent Total Time Spent with Patient: Total time spent is greater than 50% in coordination of care (as documented) at patient's floor/unit and/or counseling patient: Coding Level of Care Code None Diagnoses Metabolic encephalopathy G93.41 DKA (diabetic ketoacidosis) E11.10 Diabetes mellitus type: type 2 Influenza A J10.1 Acute kidney injury N17.9 Primary hypertension I10 Hypertension type: primary hypertension PAF (paroxysmal atrial fibrillation) I48.0 Acute osteomyelitis of toe of right foot M86.171 Laterality: right (2) DKA (diabetic ketoacidosis) Diabetes mellitus type: type 2 (5) Hypertension Hypertension type: primary hypertension Qualified Code(s): I10 - Essential (primary) hypertension (7) Acute osteomyelitis of toe Laterality: right Qualified Code(s): M86.171 - Other acute osteomyelitis, right ankle and foot
--- NOTE | 2024-05-25 18:58 | Electrocardiogram Report ---
Test Reason : Blood Pressure : */* mmHG Vent. Rate : 65 BPM Atrial Rate : 65 BPM P-R Int : 250 ms QRS Dur : 112 ms QT Int : 412 ms P-R-T Axes : 66 57 76 degrees QTcB Int : 428 ms Sinus rhythm with 1st degree A-V block Possible Left atrial enlargement Low voltage QRS Septal infarct (cited on or before 14-Dec-2023) Abnormal ECG When compared with ECG of 14-Dec-2023 17:28, PA interval has increased QRS duration has increased Confirmed by Vineet Gutierrez ([id number]) on 05/25/2024 6:57:45 PM Referred By: REFERRED SELF Confirmed By: Vineet Gutierrez
--- NOTE | 2024-05-25 19:03 | Electrocardiogram Report ---
Test Reason : Blood Pressure : */* mmHG Vent. Rate : 65 BPM Atrial Rate : 65 BPM P-R Int : 250 ms QRS Dur : 112 ms QT Int : 408 ms P-R-T Axes : 55 3 70 degrees QTcB Int : 424 ms Sinus rhythm with 1st degree A-V block Minimal voltage criteria for LVH, may be normal variant ( [place] product ) Septal infarct (cited on or before 14-Dec-2023) Possible Lateral infarct , new Inferior injury pattern ACUTE OK / STEMI Abnormal ECG When compared with ECG of 23-May-2024 09:38, (unconfirmed) Inferior infarct is more evident Confirmed by Vineet Gutierrez ([id number]) on 05/25/2024 7:03:51 PM Referred By: REFERRED SELF Confirmed By: Vineet Gutierrez
[2024-05-25] MEDS ORDERED: VANCOMYCIN 750 MG in SODIUM CHLORIDE 0.9% 250 ML IV PRN (23:00)
[2024-05-26] MEDS: VANCOMYCIN 750 MG in SODIUM CHLORIDE 0.9% 250 ML IV ONE (01:34)
[2024-05-26 05:58] LABS: BUN Creatinine Ratio 43.8 (10-20); Calcium 7.7 mg/dl (8.6-10.3); Creatinine Clr Calc Pharmacy 42.1 ml/min; Magnesium 2.1 mg/dl (1.7-2.4); Phosphorus 2.3 mg/dl (2.5-4.9); Potassium 3.8 mmol/L (3.5-5.1)
[2024-05-26 06:05] LABS: ANTI-Xa, UFH(UnfractionatedHep 0.23 IU/ml (0.3-0.7)
[2024-05-26 06:26] LABS: Basophils # (auto) 0.02 K/uL (0.00-0.20); Basophils % (auto) 0.2 %; Eosinophils # (auto) 0.03 K/uL (0.00-0.50); Eosinophils % (auto) 0.3 %; Hematocrit (blood only) 29.5 % (37.0-47.0); Immature Granulocytes # (auto) 0.22 K/uL (0.01-0.20); Immature Granulocytes % (auto) 2.4 %; Lymphocytes # (auto) 0.55 K/uL (1.20-3.40); Mean Corpuscular Hgb Conc 33.9 g/dL (32.0-36.0); Mean Corpuscular Volume 79.5 fL (80.0-100.0); Mean Platelet Volume 11.2 fL (9.4-12.4); Monocytes # (auto) 0.44 K/uL (0.11-0.59); Monocytes % (auto) 4.8 %; Neutrophils # (auto) 7.88 K/uL (1.40-6.50); Neutrophils % (auto) 86.3 %; Platelet Count 86 K/uL (130-400); Platelet Estimate Decreased (Normal); RBC Morphology Unremarkable; RDW Coefficient of Variation 14.5 % (11.5-14.5); RDW Standard Deviation 41.7 fL (36.4-46.3); Red Blood Count 3.71 M/uL (4.20-5.40); White Blood Count 9.14 K/ul (4.8-10.8)
--- NOTE | 2024-05-26 08:08 | Critical Care Progress Note ---
Date of Service May 26, 2024 Assessment & Plan (1) Metabolic encephalopathy: (2) Acute kidney injury: (3) Sepsis: Plan Impression: 64-year-old female with diabetes and peripheral vascular disease with history of recent osteomyelitis presents now with severe DKA, acute renal failure, and shock with elevated troponin and ST elevations on EKG. 24-hour events: Extubated to BiPAP. BiPAP weaned to off this morning. Converted to normal sinus. Joseluis-Synephrine weaned off. Hypertensive now requiring intermittent labetalol. Sensorium clearing. Recommendation: 1. Neurologic: Encephalopathy likely metabolic in nature. Improving today. Will continue to follow as the patient's metabolic abnormalities continue to correct. Will initiate physical therapy and Occupational Therapy. Out of bed to chair as tolerated. 2. Cardiovascular: EKG with ST elevation. Cardiac catheterization discussed with Dr. Dick. No occult culprit lesions identified but diffuse disease. Medical management recommended. A-fib transient. Converted with amiodarone. Now in normal sinus and on heparin. Continue IV amnio for now as well as heparin and will make decisions regarding long-term therapy as the patient stabilizes in conjunction with cardiology 3. Pulmonary: Intubated due to to hemodynamic instability. Flu a positive. Possible secondary staph infection and currently on vancomycin. Extubated 05/25/2024 and now off BiPAP. Will continue to use BiPAP nightly and as needed. 4. Renal: Acute renal failure: Suspect ATN. Associated with hyperkalemia. Appreciate nephrology input. Serum creatinine improving with improved BUN. Electrolytes stable. Continue to trend. Replace phosphate this morning 5. GI: No current issues. Await swallow evaluation. 6. Endocrine: Severe DKA: Patient is noncompliant in the outpatient setting. Hemoglobin A1c elevated at 11. Currently maintained on subcutaneous insulin regiment 7. ID: Patient with recent osteomyelitis. Podiatry notes reviewed. Blood cultures today no growth to date. Continue Zosyn for now. Sputum culture with MRSA, complete vancomycin course for 7 days. When the patient is stable, consider MRI of the foot and potential additional surgical brisement as she clears from her current metabolic disorders. Holding Tamiflu for now given the timeframe and patient's inability to take oral medications currently. Given the stability of her respiratory status, do not think this is required at this point in time. 8. Heme-onc: Mild anemia. No evidence of acute blood loss and no indication for transfusion currently. Platelet count continues to drop. 4 T-score only 1 indicating low probability. May potentially be related to Zosyn. Risk-benefit favors continuing medications currently. Patient's critical care issues have resolved and are improving. She appears stable to consider transfer to a lower level of care. Critical care services will sign off. Feel free to contact us with questions or concerns Admission and Anticipated Discharge Date Admission Date: May 23, 2024 Subjective Patient seen and examined. EMR reviewed. Discussed with critical care TYLER overnight and with bedside critical care nurse this morning. The patient is improved. She is now off BiPAP. Her mentation is clearing. Her neurological exam is nonfocal. She is hemodynamically stable and maintained in sinus rhythm and actually on the hypertensive side now. Review of Systems Review of Systems: Unobtainable due to reduced consciousness Physical Exam Constitutional: + obese and + lethargic Neck: trachea midline, no thyromegaly Respiratory: normal respiratory effort, lungs clear to auscultation no respiratory distress, no labored breathing and not tachypneic Auscultation: + rhonchi; no wheezes Cardiovascular: RRR, no murmur, no edema Gastrointestinal (Abdomen): normal bowel sounds, soft, nontender, no hepatosplenomegaly Musculoskeletal: Extremities: extremities normal to inspection Skin: no rashes, warm and dry Lymphatic: no cervical lymphadenopathy Results & Data Results & Data Vital Signs (Past 12 Hours) Vital Signs Temp Pulse Resp BP Pulse Ox FiO2 05/26/24 06:51 37.5 C 70 21 97 05/26/24 06:30 175/73 H 05/26/24 06:27 37.4 C 74 23 97 05/26/24 06:21 37.4 C 74 21 96 05/26/24 06:09 37.4 C 75 24 95 05/26/24 05:45 37.4 C 74 23 185/89 H 98 05/26/24 05:21 37.4 C 74 22 98 05/26/24 05:00 37.4 C 75 26 H 96 05/26/24 05:00 178/76 H 05/26/24 05:00 178/76 H 05/26/24 05:00 178/76 H 05/26/24 04:51 37.4 C 73 23 97 05/26/24 04:33 37.4 C 72 25 H 97 05/26/24 04:30 175/89 H 05/26/24 04:30 175/89 H 05/26/24 04:21 37.4 C 72 24 97 05/26/24 04:09 37.4 C 72 24 97 05/26/24 03:48 37.4 C 75 24 96 05/26/24 03:36 37.5 C 70 24 95 05/26/24 03:30 167/76 H 05/26/24 03:30 167/76 H 05/26/24 03:30 167/76 H 05/26/24 03:18 37.5 C 72 24 96 05/26/24 03:15 37.5 C 72 25 H 96 05/26/24 03:09 37.5 C 71 24 96 05/26/24 03:00 162/82 H 05/26/24 03:00 162/82 H 05/26/24 02:57 37.5 C 73 25 H 97 05/26/24 02:55 73 22 97 30 05/26/24 02:33 37.6 C H 70 24 97 05/26/24 02:30 162/78 H 05/26/24 02:30 162/78 H 05/26/24 02:30 162/78 H 05/26/24 02:30 162/78 H 05/26/24 02:18 37.6 C H 73 96 05/26/24 02:15 37.6 C H 73 18 97 05/26/24 02:00 151/94 H 05/26/24 02:00 151/94 H 05/26/24 02:00 151/94 H 05/26/24 01:51 37.7 C H 90 97 05/26/24 01:48 37.7 C H 91 H 98 05/26/24 01:33 37.7 C H 74 18 97 05/26/24 01:30 150/75 H 05/26/24 01:30 150/75 H 05/26/24 01:21 37.7 C H 72 95 05/26/24 01:03 37.7 C H 72 18 96 05/26/24 01:00 148/75 H 05/26/24 01:00 148/75 H 05/26/24 00:45 37.7 C H 73 18 96 05/26/24 00:30 162/83 H 05/26/24 00:30 162/83 H 05/26/24 00:30 37.7 C H 74 95 05/26/24 00:15 37.8 C H 75 97 05/26/24 00:03 37.8 C H 75 18 96 05/26/24 00:00 164/77 H 05/26/24 00:00 164/77 H 05/25/24 23:56 74 05/25/24 23:54 37.8 C H 74 18 97 05/25/24 23:51 37.8 C H 74 96 05/25/24 23:30 74 24 97 30 05/25/24 23:30 37.8 C H 75 96 05/25/24 23:30 163/81 H 05/25/24 23:30 163/81 H 05/25/24 23:18 37.8 C H 74 96 05/25/24 23:09 37.8 C H 76 18 96 05/25/24 23:00 174/89 H 05/25/24 22:57 37.8 C H 73 95 05/25/24 22:54 37.8 C H 74 96 05/25/24 22:36 37.8 C H 74 18 96 05/25/24 22:30 157/82 H 05/25/24 22:30 157/82 H 05/25/24 22:30 157/82 H 05/25/24 22:21 37.8 C H 75 95 05/25/24 22:18 37.8 C H 75 18 95 05/25/24 22:06 37.8 C H 75 95 05/25/24 22:00 148/73 H 05/25/24 21:48 37.8 C H 75 18 94 05/25/24 21:45 37.8 C H 76 18 94 05/25/24 21:30 162/84 H 05/25/24 21:12 37.8 C H 74 18 96 05/25/24 21:09 37.8 C H 75 96 05/25/24 21:00 160/74 H 05/25/24 20:57 37.8 C H 76 96 05/25/24 20:51 37.9 C H 78 96 05/25/24 20:33 37.9 C H 77 95 05/25/24 20:33 76 21 95 30 05/25/24 20:30 179/84 H 05/25/24 20:15 37.9 C H 77 96 Critical Care Results & Data Vital Signs (Past 12 Hours) Vital Signs Temp Pulse Resp BP Pulse Ox FiO2 05/26/24 06:51 37.5 C 70 21 97 05/26/24 06:30 175/73 H 05/26/24 06:27 37.4 C 74 23 97 05/26/24 06:21 37.4 C 74 21 96 05/26/24 06:09 37.4 C 75 24 95 05/26/24 05:45 37.4 C 74 23 185/89 H 98 05/26/24 05:21 37.4 C 74 22 98 05/26/24 05:00 37.4 C 75 26 H 96 05/26/24 05:00 178/76 H 05/26/24 05:00 178/76 H 05/26/24 05:00 178/76 H 05/26/24 04:51 37.4 C 73 23 97 05/26/24 04:33 37.4 C 72 25 H 97 05/26/24 04:30 175/89 H 05/26/24 04:30 175/89 H 05/26/24 04:21 37.4 C 72 24 97 05/26/24 04:09 37.4 C 72 24 97 05/26/24 03:48 37.4 C 75 24 96 05/26/24 03:36 37.5 C 70 24 95 05/26/24 03:30 167/76 H 05/26/24 03:30 167/76 H 05/26/24 03:30 167/76 H 05/26/24 03:18 37.5 C 72 24 96 05/26/24 03:15 37.5 C 72 25 H 96 05/26/24 03:09 37.5 C 71 24 96 05/26/24 03:00 162/82 H 05/26/24 03:00 162/82 H 05/26/24 02:57 37.5 C 73 25 H 97 05/26/24 02:55 73 22 97 30 05/26/24 02:33 37.6 C H 70 24 97 05/26/24 02:30 162/78 H 05/26/24 02:30 162/78 H 05/26/24 02:30 162/78 H 05/26/24 02:30 162/78 H 05/26/24 02:18 37.6 C H 73 96 05/26/24 02:15 37.6 C H 73 18 97 05/26/24 02:00 151/94 H 05/26/24 02:00 151/94 H 05/26/24 02:00 151/94 H 05/26/24 01:51 37.7 C H 90 97 05/26/24 01:48 37.7 C H 91 H 98 05/26/24 01:33 37.7 C H 74 18 97 05/26/24 01:30 150/75 H 05/26/24 01:30 150/75 H 05/26/24 01:21 37.7 C H 72 95 05/26/24 01:03 37.7 C H 72 18 96 05/26/24 01:00 148/75 H 05/26/24 01:00 148/75 H 05/26/24 00:45 37.7 C H 73 18 96 05/26/24 00:30 162/83 H 05/26/24 00:30 162/83 H 05/26/24 00:30 37.7 C H 74 95 05/26/24 00:15 37.8 C H 75 97 05/26/24 00:03 37.8 C H 75 18 96 05/26/24 00:00 164/77 H 05/26/24 00:00 164/77 H 05/25/24 23:56 74 05/25/24 23:54 37.8 C H 74 18 97 05/25/24 23:51 37.8 C H 74 96 05/25/24 23:30 74 24 97 30 05/25/24 23:30 37.8 C H 75 96 05/25/24 23:30 163/81 H 05/25/24 23:30 163/81 H 05/25/24 23:18 37.8 C H 74 96 05/25/24 23:09 37.8 C H 76 18 96 05/25/24 23:00 174/89 H 05/25/24 22:57 37.8 C H 73 95 05/25/24 22:54 37.8 C H 74 96 05/25/24 22:36 37.8 C H 74 18 96 05/25/24 22:30 157/82 H 05/25/24 22:30 157/82 H 05/25/24 22:30 157/82 H 05/25/24 22:21 37.8 C H 75 95 05/25/24 22:18 37.8 C H 75 18 95 05/25/24 22:06 37.8 C H 75 95 05/25/24 22:00 148/73 H 05/25/24 21:48 37.8 C H 75 18 94 05/25/24 21:45 37.8 C H 76 18 94 05/25/24 21:30 162/84 H 05/25/24 21:12 37.8 C H 74 18 96 05/25/24 21:09 37.8 C H 75 96 05/25/24 21:00 160/74 H 05/25/24 20:57 37.8 C H 76 96 05/25/24 20:51 37.9 C H 78 96 05/25/24 20:33 37.9 C H 77 95 05/25/24 20:33 76 21 95 30 05/25/24 20:30 179/84 H 05/25/24 20:15 37.9 C H 77 96 Lab & Micro Results (Past 24 Hours) RBC 3.71 M/uL (4.20-5.40) L 05/26/24 WBC 9.14 K/ul (4.8-10.8) 05/26/24 Hgb 10.0 g/dl (12.0-16.0) L 05/26/24 Hct 29.5 % (37.0-47.0) L 05/26/24 MCV 79.5 fL (80.0-100.0) L 05/26/24 MCH 27.0 pg (25.0-34.0) 05/26/24 MCHC 33.9 g/dL (32.0-36.0) 05/26/24 RDW Standard Deviation 41.7 fL (36.4-46.3) 05/26/24 RDW Coefficient of Variation 14.5 % (11.5-14.5) 05/26/24 Plt Count 86 K/uL (130-400) L 05/26/24 MPV 11.2 fL (9.4-12.4) 05/26/24 Neutrophils (%) (Auto) 86.3 % 05/26/24 Lymphocytes (%) (Auto) 6.0 % 05/26/24 Monocytes # (Auto) 0.44 K/uL (0.11-0.59) 05/26/24 Eosinophils # (Auto) 0.03 K/uL (0.00-0.50) 05/26/24 Immature Granulocyte % (Auto) 2.4 % 05/26/24 Neutrophils # (Auto) 7.88 K/uL (1.40-6.50) H 05/26/24 Lymphocytes # (Auto) 0.55 K/uL (1.20-3.40) L 05/26/24 Monocytes # (Auto) 0.44 K/uL (0.11-0.59) 05/26/24 Eosinophils # (Auto) 0.03 K/uL (0.00-0.50) 05/26/24 Basophils # (Auto) 0.02 K/uL (0.00-0.20) 05/26/24 Immature Granulocyte # (Auto) 0.22 K/uL (0.01-0.20) H 05/26 Red Blood Cell Morphology Unremarkable 05/26/24 Na 138 mmol/L (136-145) 05/26/24 K 3.8 mmol/L (3.5-5.1) 05/26/24 Cl 109 mmol/L (98-107) H 05/26/24 CO2 27 mmol/L (21-32) 05/26/24 Anion Gap 2 (3-11) L 05/26/24 BUN 67 mg/dl (6-23) H 05/26/24 Creatinine 1.53 mg/dl (0.6-1.2) H 05/26/24 BUN/Creatinine Ratio 43.8 (10-20) H 05/26/24 Glu 273 mg/dl (70-99(Fasting)) H 05/26/24 Ca 7.7 mg/dl (8.6-10.3) L 05/26/24 Phosphorus Level 2.3 mg/dl (2.5-4.9) L 05/26/24 Mg 2.1 mg/dl (1.7-2.4) 05/26/24 05:28 Calcium Level 7.7 mg/dl (8.6-10.3) L 05/26/24 05:28 Microbiology 05/23/24 16:27 Urine Culture - Final Urine,Indwelling Cath No growth - less than 1,000 colonies/mL. 05/23/24 09:42 Aerobic Blood Culture - Preliminary Blood No growth in Aerobic bottle after 48 hours. Anaerobic Blood Culture - Preliminary No growth in Anaerobic bottle after 48 hours. 05/23/24 10:39 Aerobic Blood Culture - Preliminary Blood No growth in Aerobic bottle after 48 hours. Anaerobic Blood Culture - Preliminary No growth in Anaerobic bottle after 48 hours. 05/24/24 10:15 Gram Stain - Final Foot,Right Wound Culture - Preliminary Pin-point growth present, reincubating. 05/23/24 Unknown Gram Stain - Final Sputum,Vent Suction Sputum Culture - Preliminary Staph aureus MRSA Diagnostic Findings (Past 24 Hours) Chest X-Ray 05/26/24 07:00 EXAM: XR chest 1V portable CLINICAL HISTORY: resp failure TECHNIQUE: X-ray images of the chest were obtained in 1 frontal projection. COMPARISON: Compared to previous study done at 05/25/2024. FINDINGS: An endotracheal tube is not seen. NGT is not seen. Pulmonary Parenchyma: Still noted blunted left costophrenic angle. Regression of the previously noted right lower zone opacity with clear right costophrenic angle. Heart and Mediastinum: Apparent Cardiomegaly (stable). Prominent bilateral hilar bronchovascular markings. Bony Thorax: Bony thorax appears intact without fractures or deformities. Soft Tissues: Soft tissues overlying the chest wall are unremarkable. IMPRESSION: 1. An endotracheal tube is not seen. 2. NGT is not seen. 3. Still noted blunted left costophrenic angle. 4. Regression of the previously noted right lower zone opacity with clear right costophrenic angle. 5. Apparent Cardiomegaly (stable). 6. Prominent bilateral hilar bronchovascular markings. Electronically signed by Lianna Fuentes 05-26-2024 08:11 AM I & O Totals 24 Hours 05/25/24 05/26/24 05/27/24 06:59 06:59 06:59 Intake Total 5548.776 / 5548.776 2642.516 / 2642.516 Output Total 3250 / 3250 1425 / 1425 Balance 2298.776 / 2298.776 1217.516 / 1217.516 Cumulative 05/23/24 09:14 thru 05/26/24 06:52 Intake Total 75582.967 Output Total 5850 Balance 8761.967 RT Ventilator Mngmt (Last Documented) Ventilator Ordered Settings Ventilator Support Mode Assist Control 05/25/24 08:00 Respiratory Rate 21 05/26/24 06:51 Ventilator Tidal Volume 400 05/25/24 08:00 Setting Minute Ventilation 8 05/25/24 07:46 Ventilator Positive Pressure 40 05/24/24 12:00 Support Setting Positive End Expiratory 5 05/25/24 08:00 Pressure Fraction of Inspired Oxygen 30 05/26/24 02:55 Machine Comment ETT adjusted to [address] Zamarripa 05/23/24 14:52 Ventilator - PT Measurements Respiratory Rate 21 Exhaled Tidal Volume 400 Minute Ventilation 8 Peak Inspiratory Airway 20 Pressure Mean Airway Pressure 32 Plateau Pressure 17 Respiratory Cycle Inspiratory: 1:2.8 Expiratory Ratio Inspiratory Phase Time 0.80 End-Tidal CO2 31 Static Lung Compliance 33.33 Dynamic Lung Compliance 26.67 Normal Static Lung Compliance 47.00 Patient Measurements Comment FiO2 decreased to 30% at this time, RN aware. Coding Level of Care Code 19121 SUB INP/OBS CARE 3/50MIN Diagnoses Metabolic encephalopathy G93.41 Acute kidney injury N17.9 Sepsis without acute organ dysfunction, due to unspecified organism A41.9 Sepsis acute organ dysfunction status: without acute organ dysfunction Sepsis type: sepsis due to unspecified organism (3) Sepsis Sepsis acute organ dysfunction status: without acute organ dysfunction Sepsis type: sepsis due to unspecified organism Qualified Code(s): A41.9 - Sepsis, unspecified organism
--- NOTE | 2024-05-26 08:11 | XRay Report ---
EXAM: XR chest 1V portable CLINICAL HISTORY: resp failure TECHNIQUE: X-ray images of the chest were obtained in 1 frontal projection. COMPARISON: Compared to previous study done at 05/25/2024. FINDINGS: An endotracheal tube is not seen. NGT is not seen. Pulmonary Parenchyma: Still noted blunted left costophrenic angle. Regression of the previously noted right lower zone opacity with clear right costophrenic angle. Heart and Mediastinum: Apparent Cardiomegaly (stable). Prominent bilateral hilar bronchovascular markings. Bony Thorax: Bony thorax appears intact without fractures or deformities. Soft Tissues: Soft tissues overlying the chest wall are unremarkable. IMPRESSION: 1. An endotracheal tube is not seen. 2. NGT is not seen. 3. Still noted blunted left costophrenic angle. 4. Regression of the previously noted right lower zone opacity with clear right costophrenic angle. 5. Apparent Cardiomegaly (stable). 6. Prominent bilateral hilar bronchovascular markings. Electronically signed by Lianna Fuentes 05-26-2024 08:11 AM
[2024-05-26] MEDS ORDERED: SODIUM PHOSPHATE 3 MMOL/1 ML INFUSION IV STA (08:21)
[2024-05-26] MEDS: LANTUS PER UNIT CHARGE SC SCH (08:22)
--- NOTE | 2024-05-26 08:47 | Nephrology Progress Note ---
Date of Service May 26, 2024 Assessment & Plan (1) Acute kidney injury: Plan: * JOLENE due to dehydration, hypotension related to DKI, influenza A infection * Patient required IV contrast administration for evaluation of STEMI. Only small vessel disease found on cardiac catheterization 05/23/24 * Hyperkalemia and AGA have corrected w/ volume resuscitation and IV insulin administration * Cr has improved from 3.87 to 1.53 * Patient remains nonoliguric * No further nephrology evaluation indicated at this time. Patient is clearly in recovery phase. Will sign off. Please call if further assistance is needed * Monitor BMP, UO (2) Influenza A: Plan: * Supportive care (3) DKA (diabetic ketoacidosis): Plan: * Transitioned to SQ insulin (4) Shock circulatory: Plan: * Resolved (5) STEMI (ST elevation myocardial infarction): Plan: * 05/23/24 cardiac cath - only small vessel disease Admission and Anticipated Discharge Date Admission Date: May 23, 2024 Subjective Extubated. Breathing comfortably on O2 at 3L/min NC. Alert. No medical complaints voiced Review of Systems Constitutional: no fever Eyes: no problem reported Ear, Nose, Mouth, Throat: no problem reported Respiratory: no cough and no dyspnea Cardiovascular: no chest pain Gastrointestinal: no abdominal pain and no diarrhea/loose stools Integumentary: no problem reported Physical Exam Constitutional: + ill appearing Eyes: PERRL, conjunctivae normal, anicteric sclerae Neck: trachea midline, no thyromegaly Respiratory: Auscultation: + crackles Cardiovascular: RRR, no murmur, no edema Gastrointestinal (Abdomen): Inspection/Auscultation: abdomen normal to inspection and + hypoactive bowel sounds Percussion/Palpation: abdomen soft Skin: no rashes, warm and dry Results & Data Vital Signs (Past 12 Hours) Vital Signs Temp Pulse Resp BP Pulse Ox O2 Del Method O2 Flow Rate 05/26/24 08:00 Nasal Cannula 3 05/26/24 06:51 37.5 C 70 21 97 05/26/24 06:30 175/73 H 05/26/24 06:27 37.4 C 74 23 97 05/26/24 06:21 37.4 C 74 21 96 05/26/24 06:09 37.4 C 75 24 95 05/26/24 05:45 37.4 C 74 23 185/89 H 98 05/26/24 05:21 37.4 C 74 22 98 05/26/24 05:00 37.4 C 75 26 H 96 05/26/24 05:00 178/76 H 05/26/24 05:00 178/76 H 05/26/24 05:00 178/76 H 05/26/24 04:51 37.4 C 73 23 97 05/26/24 04:33 37.4 C 72 25 H 97 05/26/24 04:30 175/89 H 05/26/24 04:30 175/89 H 05/26/24 04:21 37.4 C 72 24 97 05/26/24 04:09 37.4 C 72 24 97 05/26/24 03:48 37.4 C 75 24 96 05/26/24 03:36 37.5 C 70 24 95 05/26/24 03:30 167/76 H 05/26/24 03:30 167/76 H 05/26/24 03:30 167/76 H 05/26/24 03:18 37.5 C 72 24 96 05/26/24 03:15 37.5 C 72 25 H 96 05/26/24 03:09 37.5 C 71 24 96 05/26/24 03:00 162/82 H 05/26/24 03:00 162/82 H 05/26/24 02:57 37.5 C 73 25 H 97 05/26/24 02:55 73 22 97 05/26/24 02:33 37.6 C H 70 24 97 05/26/24 02:30 162/78 H 05/26/24 02:30 162/78 H 05/26/24 02:30 162/78 H 05/26/24 02:30 162/78 H 05/26/24 02:18 37.6 C H 73 96 05/26/24 02:15 37.6 C H 73 18 97 05/26/24 02:00 151/94 H 05/26/24 02:00 151/94 H 05/26/24 02:00 151/94 H 05/26/24 01:51 37.7 C H 90 97 05/26/24 01:48 37.7 C H 91 H 98 05/26/24 01:33 37.7 C H 74 18 97 05/26/24 01:30 150/75 H 05/26/24 01:30 150/75 H 05/26/24 01:21 37.7 C H 72 95 05/26/24 01:03 37.7 C H 72 18 96 05/26/24 01:00 148/75 H 05/26/24 01:00 148/75 H 05/26/24 00:45 37.7 C H 73 18 96 05/26/24 00:30 162/83 H 05/26/24 00:30 162/83 H 05/26/24 00:30 37.7 C H 74 95 05/26/24 00:15 37.8 C H 75 97 05/26/24 00:03 37.8 C H 75 18 96 05/26/24 00:00 164/77 H 05/26/24 00:00 164/77 H 05/25/24 23:56 74 05/25/24 23:54 37.8 C H 74 18 97 05/25/24 23:51 37.8 C H 74 96 05/25/24 23:30 74 24 97 05/25/24 23:30 37.8 C H 75 96 05/25/24 23:30 163/81 H 05/25/24 23:30 163/81 H 05/25/24 23:18 37.8 C H 74 96 05/25/24 23:09 37.8 C H 76 18 96 05/25/24 23:00 174/89 H 05/25/24 22:57 37.8 C H 73 95 05/25/24 22:54 37.8 C H 74 96 05/25/24 22:36 37.8 C H 74 18 96 05/25/24 22:30 157/82 H 05/25/24 22:30 157/82 H 05/25/24 22:30 157/82 H 05/25/24 22:21 37.8 C H 75 95 05/25/24 22:18 37.8 C H 75 18 95 05/25/24 22:06 37.8 C H 75 95 05/25/24 22:00 148/73 H 05/25/24 21:48 37.8 C H 75 18 94 05/25/24 21:45 37.8 C H 76 18 94 05/25/24 21:30 162/84 H 03/05/25 21:12 37.8 C H 74 18 96 05/25/24 21:09 37.8 C H 75 96 05/25/24 21:00 160/74 H 05/25/24 20:57 37.8 C H 76 96 05/25/24 20:51 37.9 C H 78 96 FiO2 05/26/24 08:00 05/26/24 06:51 05/26/24 06:30 05/26/24 06:27 05/26/24 06:21 05/26/24 06:09 05/26/24 05:45 05/26/24 05:21 05/26/24 05:00 05/26/24 05:00 05/26/24 05:00 05/26/24 05:00 05/26/24 04:51 05/26/24 04:33 05/26/24 04:30 05/26/24 04:30 05/26/24 04:21 05/26/24 04:09 05/26/24 03:48 05/26/24 03:36 05/26/24 03:30 05/26/24 03:30 05/26/24 03:30 05/26/24 03:18 05/26/24 03:15 05/26/24 03:09 05/26/24 03:00 05/26/24 03:00 05/26/24 02:57 05/26/24 02:55 30 05/26/24 02:33 05/26/24 02:30 05/26/24 02:30 05/26/24 02:30 05/26/24 02:30 05/26/24 02:18 05/26/24 02:15 05/26/24 02:00 05/26/24 02:00 05/26/24 02:00 05/26/24 01:51 05/26/24 01:48 05/26/24 01:33 05/26/24 01:30 05/26/24 01:30 05/26/24 01:21 05/26/24 01:03 05/26/24 01:00 05/26/24 01:00 05/26/24 00:45 05/26/24 00:30 05/26/24 00:30 05/26/24 00:30 05/26/24 00:15 05/26/24 00:03 05/26/24 00:00 05/26/24 00:00 05/25/24 23:56 05/25/24 23:54 05/25/24 23:51 05/25/24 23:30 30 05/25/24 23:30 05/25/24 23:30 05/25/24 23:30 05/25/24 23:18 05/25/24 23:09 05/25/24 23:00 05/25/24 22:57 05/25/24 22:54 05/25/24 22:36 05/25/24 22:30 05/25/24 22:30 05/25/24 22:30 05/25/24 22:21 05/25/24 22:18 05/25/24 22:06 05/25/24 22:00 05/25/24 21:48 05/25/24 21:45 05/25/24 21:30 05/25/24 21:12 05/25/24 21:09 05/25/24 21:00 05/25/24 20:57 05/25/24 20:51 Laboratory Results Laboratory Results - last 24 hr 05/25/24 05/25/24 05/25/24 08:25 09:32 10:37 WBC RBC Hgb Hct MCV MCH MCHC RDW Std Deviation RDW Coeff of Nichol Plt Count MPV Immature Gran % (Auto) Neut % (Auto) Lymph % (Auto) Williamson % (Auto) Eos % (Auto) Baso % (Auto) Neut # (Auto) Lymph # (Auto) Williamson # (Auto) Eos # (Auto) Baso # (Auto) Immature Gran # (Auto) Platelet Estimate RBC Morphology Heparin Anti-Xa, Unfract 0.50 Sodium Potassium Chloride Carbon Dioxide Anion Gap BUN Creatinine Est Cr Clr Drug Dosing eGFR BUN/Creatinine Ratio Glucose POC Glucose 228 H POC Glucose (other) 241 H Calcium Phosphorus Magnesium Random Vancomycin 05/25/24 05/25/24 05/25/24 12:51 16:17 20:28 WBC RBC Hgb Hct MCV MCH MCHC RDW Std Deviation RDW Coeff of Nichol Plt Count MPV Immature Gran % (Auto) Neut % (Auto) Lymph % (Auto) Williamson % (Auto) Eos % (Auto) Baso % (Auto) Neut # (Auto) Lymph # (Auto) Williamson # (Auto) Eos # (Auto) Baso # (Auto) Immature Gran # (Auto) Platelet Estimate RBC Morphology Heparin Anti-Xa, Unfract Sodium Potassium Chloride Carbon Dioxide Anion Gap BUN Creatinine Est Cr Clr Drug Dosing eGFR BUN/Creatinine Ratio Glucose POC Glucose 240 H 232 H 253 H POC Glucose (other) Calcium Phosphorus Magnesium Random Vancomycin 05/25/24 05/25/24 05/26/24 22:57 23:58 04:01 WBC RBC Hgb Hct MCV MCH MCHC RDW Std Deviation RDW Coeff of Nichol Plt Count MPV Immature Gran % (Auto) Neut % (Auto) Lymph % (Auto) Williamson % (Auto) Eos % (Auto) Baso % (Auto) Neut # (Auto) Lymph # (Auto) Williamson # (Auto) Eos # (Auto) Baso # (Auto) Immature Gran # (Auto) Platelet Estimate RBC Morphology Heparin Anti-Xa, Unfract Sodium Potassium Chloride Carbon Dioxide Anion Gap BUN Creatinine Est Cr Clr Drug Dosing eGFR BUN/Creatinine Ratio Glucose POC Glucose 248 H 207 H POC Glucose (other) Calcium Phosphorus Magnesium Random Vancomycin 17.5 05/26/24 05/26/24 05:28 08:17 WBC 9.14 RBC 3.71 L Hgb 10.0 L Hct 29.5 L MCV 79.5 L MCH 27.0 MCHC 33.9 RDW Std Deviation 41.7 RDW Coeff of Nichol 14.5 Plt Count 86 L MPV 11.2 Immature Gran % (Auto) 2.4 Neut % (Auto) 86.3 Lymph % (Auto) 6.0 Williamson % (Auto) 4.8 Eos % (Auto) 0.3 Baso % (Auto) 0.2 Neut # (Auto) 7.88 H Lymph # (Auto) 0.55 L Williamson # (Auto) 0.44 Eos # (Auto) 0.03 Baso # (Auto) 0.02 Immature Gran # (Auto) 0.22 H Platelet Estimate Decreased L RBC Morphology Unremarkable Heparin Anti-Xa, Unfract 0.23 L Sodium 138 Potassium 3.8 Chloride 109 H Carbon Dioxide 27 Anion Gap 2 L BUN 67 H D Creatinine 1.53 H D Est Cr Clr Drug Dosing 42.1 eGFR 38.00 BUN/Creatinine Ratio 43.8 H Glucose 273 H POC Glucose 215 H POC Glucose (other) Calcium 7.7 L Phosphorus 2.3 L Magnesium 2.1 Random Vancomycin PG Care Time/CCT Total # of Minutes Spent Total Time Spent with Patient: Total time spent is greater than 50% in coordination of care (as documented) at patient's floor/unit and/or counseling patient: Coding Level of Care Code 46071 SUB INP/OBS CARE 3/50MIN Diagnoses Acute kidney injury N17.9 Influenza A J10.1 DKA (diabetic ketoacidosis) E11.10 Diabetes mellitus type: type 2 Shock circulatory R57.9 STEMI (ST elevation myocardial infarction) I21.3 (3) DKA (diabetic ketoacidosis) Diabetes mellitus type: type 2
[2024-05-26] MEDS: SODIUM PHOSPHATE 15 MMOL in SODIUM CHLORIDE 0.9% 250 ML IV ONE (09:20)
--- NOTE | 2024-05-26 10:31 | Pharmacy Report ---
Pharmacy Glycemic Short Note 2 - Date of Service May 26, 2024 - Glycemic Short BSG Results (Last 24 hours): 05/25/24 05/25/24 05/25/24 10:37 12:51 16:17 Glucose POC Glucose 228 H 240 H 232 H 05/25/24 05/25/24 05/26/24 20:28 23:58 04:01 Glucose POC Glucose 253 H 248 H 207 H 05/26/24 05/26/24 05:28 08:17 Glucose 273 H POC Glucose 215 H OUTPATIENT ANTIDIABETIC REGIMEN: * empagliflozin 25mg PO daily * Lantus 23 units SQ BID (vs. 46 units daily) * Novolog TIDM HbA1C: 11.2% 05/24/24 (est avg BSG ~275mg/dL) ASSESSMENT: 05/26 * Patient was extubated yesterday * Pressors have been weaned off * Patient remains NPO * 73 units SQ insulin given over last 24 hrs with majority of BSGs 200-250mg/dL * Will continue to up-titrate basal insulin dose, cautiously however given ongoing NPO status. Q 4 hr Novolog with more aggressive correction will be used for next 24 hrs 05/25 * Patient remains intubated this AM, however sedation being held in anticipation of possible extubation later today * Pressor support continues but has been weaned (phenylephrine at 0.2mcg/kg/min) * Pt did experience a fib yesterday evening leading to initiation of amiodarone and heparin gtts (both mixed in D5W) * BSGs in 200s this AM, acceptable per current plan of care. * Per discussion at multidisciplinary rounds, pt will be transitioned off the IV insulin infusion this AM. Insulin drip running 2.6-4.4units/hr over last 12 hrs with higher rates coinciding with addition of D5W containing IV meds. Will escalate Lantus and Novolog doses to "high" stress dosing based upon weight given current insulin needs. 05/24 * Patient remains intubated and sedated this AM. * Pressor support continues (phenylephrine @1.5mcg/kg/min) * BSGs have trending down into the 300s this AM and AG acidosis has resolved (AG = 8 and Bicarb 21) * Renal fxn improving, SCr decreasing and UOP increasing * Patient discussed on multidisciplinary rounds this AM. Patient will continue on IV insulin infusion at this time, however will add some basal insulin today as this will make transition to SQ regimen easier in the near future. Per Rfid Technician, BSGs in 200s acceptable for this patient given A1c and BSGs on presentation. Nutrition to begin today, Liner Assembler currently working up a plan. Dextrose containing IVFs will not be utilized given addition of nutrition. May need to add dextrose to maint IVFs if BSGs do fall unexpe ctedly. PLAN FOR INPATIENT GLYCEMIC CONTROL: * Hold outpatient oral diabetes medications * Basal insulin * Increase Lantus 30 units SQ BID * Bolus insulin * Novolog SQ Q 4 hrs initially given transition off IV insulin infusion * Goal range: 110 - 140mg/dL * Correction factor: 15mg/dL/unit * Nutritional / Prandial insulin per carb ratio of 1 unit per 6 grams CHO
--- NOTE | 2024-05-26 10:38 | Pharmacy Report ---
Pharmacy PK ABX Note - Date of Service May 26, 2024 - Assessment and Plan Assessment * 64 year old F receiving VANCOMYCIN + ZOSYN for treatment of CAP as well as recent h/o R foot osteo. * Pertinent microbiologic data includes: Negative MRSA Nasal Swab; + MRSA growin g in sputum cx (vent suction cx); blood and urine cx's no growth to date; surface wound cx obtained from R foot (however these are not reliable for identification of infecting organism). Foot Xray read as possible early osteo. Prior foot cx's had growing GBS, finegoldia, gemella and strep intermedius. Podiatry has been consulted. Possible MRI at a later date when more stable * Day # 3 of antimicrobial therapy. * Patient did present with JOLENE which continues to improve rapidly (SCr 3.87 --> 3.12 --> 1.99-->1.53; UOP ~ 1.5L last 24 hrs) Plan Vancomycin * Random vanco level last PM = 17.5 mcg/mL @2257; 750mg x 1 given as a result * Will recheck random level this evening given rapidly changing renal fxn. If this random level is < 20, will give 750mg IV vancomycin x 1 again. * AUC/YANETH is the preferred PK/PD target for vancomycin - however patient is not currently a candidate for this method due to severe JOLENE and changing renal fxn. Will continue to dose per random levels until renal fxn stabilizes. Of note, baseline SCr appears to be ~0.8 Pharmacy will continue to follow and will adjust dose/frequency as necessary. Thank you. Pharmacy has transitioned to AUC monitoring for vancomycin. AUC/YANETH is the preferred PK/PD target and is associated with decreased risk of nephrotoxicity compared to traditional trough targets.
[2024-05-26] MEDS: ASPIRIN 81 MG ECTAB PO SCH (11:55)
[2024-05-26] MEDS: ATORVASTATIN 40 MG TAB PO SCH (11:55)
[2024-05-26 12:35] LABS: ANTI-Xa, UFH(UnfractionatedHep 0.23 IU/ml (0.3-0.7)
--- NOTE | 2024-05-26 13:38 | Podiatry Progress Note ---
Date of Service May 26, 2024 Assessment & Plan (1) Osteomyelitis of right foot: (2) Uncontrolled type 2 diabetes mellitus with hyperglycemia: (3) Acute osteomyelitis of toe: Plan Patient was examined and evaluated. - Chart reviewed. - Her improvement since yesterday is encouraging. Should continue conservative/wound care and IV antibiotics for foot infection, for now. - Edema improved and pulses palpable today. Should benefit and heal from surgery for the first ray. - Consider advanced imaging when stable, still - I will be out of town until Thursday. Continue daily optifoam dressing, consider [place] Ag as well. - Will reconsider surgical intervention in the new week. Please message if there are any acute concerns at any time. Admission and Anticipated Discharge Date Admission Date: May 23, 2024 Subjective Patient seen at bedside. Much more alert/oriented than prior day. States she recalls who I am, but unsure where she is. Still, believes she is feeling better. Denies pain to the foot Physical Exam Physical Exam: Lower extremity focused exam: DP/PT pulses palpable, lower extremity edema improved. Advanced trophic changes noted, otherwise, including skin atrophy, distal cooling, decreased hair growth, nail dystrophy. CFT brisk to digits. Right third toe amputation well healed, as is right second toe hammer toe repair/bone biopsy incision. Now, plantar first metatarsal head hyperkeratotic skin lesion is ulcerated with extension noted directly dorsal at the level of the MTPJ. There is scant purulent drainage and is dryer today than on clinical images viewed yesterday. No ascending cellulitis noted. Constitutional: well developed, + obese, + mechanically ventilated and + edematous Neck: trachea midline, no thyromegaly Cardiovascular: Rate/Rhythm: regular rate Extremities: normal capillary refill, + pedal edema and + edema Skin: + turgor decreased, + ulcer, + skin tigh tening, + wound, + skin atrophy and + erythema; nails not dystrophic Psychiatric: Orientation: + not alert Results & Data Results & Data Vital Signs (Past 12 Hours) Vital Signs Temp Pulse Resp BP Pulse Ox O2 Del Method O2 Flow Rate 05/26/24 08:00 Nasal Cannula 3 05/26/24 06:51 37.5 C 70 21 97 05/26/24 06:30 175/73 H 05/26/24 06:27 37.4 C 74 23 97 05/26/24 06:21 37.4 C 74 21 96 05/26/24 06:09 37.4 C 75 24 95 05/26/24 05:45 37.4 C 74 23 185/89 H 98 05/26/24 05:21 37.4 C 74 22 98 05/26/24 05:00 37.4 C 75 26 H 96 05/26/24 05:00 178/76 H 05/26/24 05:00 178/76 H 05/26/24 05:00 178/76 H 05/26/24 04:51 37.4 C 73 23 97 05/26/24 04:33 37.4 C 72 25 H 97 05/26/24 04:30 175/89 H 05/26/24 04:30 175/89 H 05/26/24 04:21 37.4 C 72 24 97 05/26/24 04:09 37.4 C 72 24 97 05/26/24 03:48 37.4 C 75 24 96 05/26/24 03:36 37.5 C 70 24 95 05/26/24 03:30 167/76 H 05/26/24 03:30 167/76 H 05/26/24 03:30 167/76 H 05/26/24 03:18 37.5 C 72 24 96 05/26/24 03:15 37.5 C 72 25 H 96 05/26/24 03:09 37.5 C 71 24 96 05/26/24 03:00 162/82 H 05/26/24 03:00 162/82 H 05/26/24 02:57 37.5 C 73 25 H 97 05/26/24 02:55 73 22 97 05/26/24 02:33 37.6 C H 70 24 97 05/26/24 02:30 162/78 H 05/26/24 02:30 162/78 H 05/26/24 02:30 162/78 H 05/26/24 02:30 162/78 H 05/26/24 02:18 37.6 C H 73 96 05/26/24 02:15 37.6 C H 73 18 97 05/26/24 02:00 151/94 H 05/26/24 02:00 151/94 H 05/26/24 02:00 151/94 H 05/26/24 01:51 37.7 C H 90 97 05/26/24 01:48 37.7 C H 91 H 98 FiO2 05/26/24 08:00 05/26/24 06:51 05/26/24 06:30 05/26/24 06:27 05/26/24 06:21 05/26/24 06:09 05/26/24 05:45 05/26/24 05:21 05/26/24 05:00 05/26/24 05:00 05/26/24 05:00 05/26/24 05:00 05/26/24 04:51 05/26/24 04:33 05/26/24 04:30 05/26/24 04:30 05/26/24 04:21 05/26/24 04:09 05/26/24 03:48 05/26/24 03:36 05/26/24 03:30 05/26/24 03:30 05/26/24 03:30 05/26/24 03:18 05/26/24 03:15 05/26/24 03:09 05/26/24 03:00 05/26/24 03:00 05/26/24 02:57 05/26/24 02:55 30 05/26/24 02:33 05/26/24 02:30 05/26/24 02:30 05/26/24 02:30 05/26/24 02:30 05/26/24 02:18 05/26/24 02:15 05/26/24 02:00 05/26/24 02:00 05/26/24 02:00 05/26/24 01:51 05/26/24 01:48 (1) Osteomyelitis of right foot Osteomyelitis type: other acute Qualified Code(s): M86.171 - Other acute osteomyelitis, right ankle and foot (3) Acute osteomyelitis of toe Laterality: right Qualified Code(s): M86.171 - Other acute osteomyelitis, right ankle and foot
--- NOTE | 2024-05-26 19:01 | Hospitalist Progress Note ---
Date of Service May 26, 2024 Assessment & Plan (1) Metabolic encephalopathy: (2) DKA (diabetic ketoacidosis): (3) Influenza A: (4) Acute kidney injury: (5) Hypertension: (6) PAF (paroxysmal atrial fibrillation): (7) Acute osteomyelitis of toe: (8) Sepsis: Present on Admission?: Yes Plan Ms. Hay is a 64F with PMHx of Uncontrolled T2DM on Insulin with Neuropathy, PAD, and HTN who presents to the ED for altered mental status. HPI noted for cough and congestion since found to be Flu A positive in ER. It is reported she has not taken insulin since and became delirious on Thursday. She is noted to have a glucose of 1439 and multiple electrolyte abnormalities. Patient went to lab instructor due to elevated troponins and inferior wall EKG changes. No PCI indicated and findings suggesting of Type II NSTEMI. #Metabolic Encephalopathy 2/2 Multifactorial -- Diabetic Ketoacidosis/Influenza A/Dehydration/possible diabetic foot infection osteomyelitis -Patient decompensated while in the ED with hypotension and bradycardia. Ultimately required intubation and the initiation of pressor support while correcting acidosis. -Patient currently off ventilator and pressors, was transition to continuous BiPap, now on O2 nasal cannula with BiPAP nightly and as needed. -Mental status is improving and patient becoming more responsive to stimuli -PT/OT evaluation completed today with click score of 6, recommending skilled PT during admission with transfer to rehab necessary once medically stable #Metabolic Acidosis 2/2 Diabetic Ketoacidosis//Uncontrolled T2DM - A1c 11.2: -Glucose noted 1439; Lactate 2.4; K 6.3 on admission -Received fluid boluses in ED; bicarb; intubation -DKA protocol with pharmacy assistance routine labs for glucose monitoring and electrolyte adjustment as glucose improves -Anion gap is closed -Glucose levels currently in low to mid 200s. -Diabetic education/Nutrition once patient is able to participate #Influenza A: -CXR noted atelectasis vs L base PNA; procal is elevated a 1.66; WBC 14.42 on admission - Chest xray 05/26/24 showing blunted left costophrenic angle and regression of the right lower zone opacity with clear right costophrenic angle - Sputum culture positive for MRSA - Currently being managed with vancomycin and zosyn #Type II NSTEMI 2/2 Above -EKG with acute elevations in II, III, aVF - patient to lab instructor with Dr. Dick - no PCI indicated -Hold home ASA and Atorvastatin while intubated; non-oral options to be determined upon further recommendations -Cardiac catheterization revealed diffuse small vessel disease. -Echocardiogram revealed upper limit normal EF with normal LV size and atrial size. The right ventricle is borderline enlarged with mild tricuspid re gurgitation. RV function is intact -Cardiology following - recommending starting high dose statin, low dose aspirin, beta-giana, as well as, ann/arb -depending on renal function. (once patient can take PO medications) #PAF/HTN -Acutely ill with hypotension and requiring pressor support upon admission -Hold home Norvasc and Toprol XL while intubated and acutely ill; per last D/C she was D/Cd from Lisinopril given previous JOLENE 2/2 ATN this will need verified if remains off -Cardiology following -Continue amiodarone protocol. Recommending IV/PO metoprolol once protocol complete. On heparin for anticoagulation. #Acute Kidney Injury/Hyponatremia/Hyperkalemia: -Multifactorial - significant dehydration 2/2 hyperglycemia and influenza A and possible ATN; baseline 0.7 -Received initial fluid bolus; will require routine labs for monitoring -Nephrology following -Renal function improving, creatinine 1.53 #Acute Osteomyelitis of Toe/History of OM R Foot with Previous Amputations (Dec- Feb 2024): - meropenem d/c; on vancomycin & zosyn - R foot X-ray was ordered and showing signs of possible early osteomyelitis. -Culture right foot showing gram-positive cocci on Gram stain and low counts mixed probable skin microbiota - Podiatry consulted and first metatarsal head of r foot is likely osteomyelitic, recommending wound care and deferring imaging and surgical management until patient becomes more stable unless needed sooner. #Septic Shock POA #DVT Prophylaxis: -Heparin SC #Disposition: -ICU Admission and Anticipated Discharge Date Admission Date: May 23, 2024 Supervising Physician Co-Signing Physician Notes I have reviewed vital signs, chart notes, labs and imaging. I have personally seen, evaluated and examined the patient. I have also discussed the management of the patient with the TYLER and I agree with the exam findings documented in the history and physical examination and the documented assessment and plan unless otherwise stated below. Monie is awake today though remains lethargic and confused not oriented to place or situation. Speech is intact she is following commands and moving 4 extremities purposefully. Her is at the bedside. Work of breathing is nonlabored she has some coarse breath sounds anteriorly and coughing, heart is regular with no murmur. Abdomen soft nontender nondistended. Extremities are warm and well-perfused 64-year-old woman with diabetes who presented with shock, likely septic shock influenza A and superimposed MRSA pneumonia, DKA, acute metabolic encephalopathy. she also had JOLENE and rapid atrial fibrillation as well as NSTEMI. she Was intubated for airway protection, underwent coronary angiography which is negative for any coronary obstruction, VA thought to be related to small vessel disease, and she was admitted to the ICU and required pressors for several days. at this time shock has resolved, she was extubated 24 hours ago, metabolic encephalopathy improved both though still lethargic and confused not able to take p.o. yet. Will continue current antibiotics, medical treatment for VA including heparin drip, amiodarone drip for atrial fibrillation she converted to sinus midday today, transferring to PCU Subjective Unable to obtain reliable history. Patient is more alert today. She is awake but very fatigued. She can be aroused with verbal cues. Speech is mostly garbled. Review of Systems Review of Systems: See subjective. Unable to obtain Physical Exam Physical Exam: General: (+) O2 nasal cannula (+) obese (+) ill appearing (+) lethargic HEENT: normocephalic, atraumatic; Neck: supple; no lymphadenopathy; trachea midline Skin: warm, dry without signs of tenting; no cyanosis; no rashes, bruising or erythema noted CV: (+) irregular rhythm; regular rate ; S1/S2 normal; no murmurs/rubs/gallops; Lungs: no acute respiratory distress; symmetrical chest wall expansion; (+) rales present bilaterally ABD: Soft, NTP; Hypoactive BS present; no rebound/guarding; no distention MSK: no tics or fasciculations; nonerythematous; Right foot/toe with dressing in place. Pedal edema noted Neuro:(+) responding with garbled speech and few words to verbal cues Results & Data Results & Data Vital Signs (Past 12 Hours) Temperature, heart rate, respiratory rate, blood pressure, oxygen saturation reviewed Vital Signs Temp Pulse Resp BP Pulse Ox O2 Del Method O2 Flow Rate 05/26/24 17:03 99.3 F 75 27 H 95 Nasal Cannula 4 05/26/24 17:00 174/82 H 05/26/24 17:00 174/82 H 05/26/24 17:00 174/82 H 05/26/24 16:57 99.5 F 78 28 H 95 05/26/24 16:00 164/80 H 05/26/24 16:00 164/80 H 05/26/24 16:00 99.1 F 74 27 H 94 05/26/24 15:09 99.1 F 75 28 H 94 05/26/24 14:00 100.2 F H 74 29 H 95 05/26/24 14:00 148/70 H 05/26/24 14:00 148/70 H 05/26/24 14:00 148/70 H 05/26/24 14:00 148/70 H 05/26/24 13:03 100.0 F H 73 27 H 95 05/26/24 13:00 154/79 H 05/26/24 13:00 154/79 H 05/26/24 13:00 154/79 H 05/26/24 13:00 154/79 H 05/26/24 12:51 99.9 F H 72 26 H 94 05/26/24 12:03 99.9 F H 72 28 H 93 05/26/24 12:00 157/73 H 05/26/24 12:00 157/73 H 05/26/24 11:54 99.9 F H 73 29 H 92 Nasal Cannula 4 05/26/24 11:03 99.7 F H 76 27 H 87 L Nasal Cannula 3 05/26/24 11:00 142/66 H 05/26/24 11:00 142/66 H 05/26/24 11:00 142/66 H 05/26/24 10:57 99.7 F H 72 27 H 91 05/26/24 10:21 99.5 F 73 27 H 92 05/26/24 10:00 153/68 H 05/26/24 09:54 99.5 F 74 27 H 92 05/26/24 09:03 99.3 F 75 27 H 91 05/26/24 09:00 159/73 H 05/26/24 08:42 99.3 F 72 23 92 05/26/24 08:00 161/75 H 05/26/24 08:00 161/75 H 05/26/24 08:00 99.5 F 73 24 93 05/26/24 08:00 Nasal Cannula 3 05/26/24 07:30 174/79 H 05/26/24 07:30 174/79 H 05/26/24 07:30 174/79 H 05/26/24 07:09 99.5 F 73 25 H 96 05/26/24 07:03 99.5 F 76 24 96 05/26/24 07:00 183/85 H 05/26/24 07:00 183/85 H 05/26/24 06:51 99.5 F 70 21 97 Laboratory Results CBC, chemistries, wound culture reviewed Diagnostic Findings Chest x-ray reviewed PG Care Time/CCT Total # of Minutes Spent Total Time Spent with Patient: Total time spent is greater than 50% in coordination of care (as documented) at patient's floor/unit and/or counseling patient: Coding Level of Care Code 99212 SUB INP/OBS CARE 3/50MIN Diagnoses Metabolic encephalopathy G93.41 DKA (diabetic ketoacidosis) E11.10 Diabetes mellitus type: type 2 Influenza A J10.1 Acute kidney injury N17.9 Primary hypertension I10 Hypertension type: primary hypertension PAF (paroxysmal atrial fibrillation) I48.0 Acute osteomyelitis of toe of right foot M86.171 Laterality: right Sepsis without acute organ dysfunction, due to unspecified organism A41.9 Sepsis acute organ dysfunction status: without acute organ dysfunction Sepsis type: sepsis due to unspecified organism (2) DKA (diabetic ketoacidosis) Diabetes mellitus type: type 2 (5) Hypertension Hypertension type: primary hypertension Qualified Code(s): I10 - Essential (primary) hypertension (7) Acute osteomyelitis of toe Laterality: right Qualified Code(s): M86.171 - Other acute osteomyelitis, right ankle and foot (8) Sepsis Sepsis acute organ dysfunction status: without acute organ dysfunction Sepsis type: sepsis due to unspecified organism Qualified Code(s): A41.9 - Sepsis, unspecified organism
[2024-05-26 20:47] LABS: ANTI-Xa, UFH(UnfractionatedHep 0.19 IU/ml (0.3-0.7)
[2024-05-26] MEDS: METOPROLOL SUCC 50MG EXT REL TAB PO SCH (21:22)
[2024-05-26] MEDS: VANCOMYCIN 750 MG in SODIUM CHLORIDE 0.9% 250 ML IV SCH (21:48)
[2024-05-26] MEDS: HEPARIN SOD (PORCINE) 1000 UNIT/ML IV ONE (21:49)
[2024-05-26] MEDS: LABETALOL HCL IV 5 MG/ML 20ML IV PRN (23:16)
[2024-05-26] MEDS: ACETAMINOPHEN 1,000 MG/100 ML VIAL IV PRN (23:20)
[2024-05-27 04:21] LABS: Hematocrit (blood only) 28.8 % (37.0-47.0); Hemoglobin 9.6 g/dl (12.0-16.0); Mean Corpuscular Hemoglobin 27.1 pg (25.0-34.0); Mean Corpuscular Hgb Conc 33.3 g/dL (32.0-36.0); Mean Corpuscular Volume 81.4 fL (80.0-100.0); Mean Platelet Volume 11.7 fL (9.4-12.4); Platelet Count 125 K/uL (130-400); RDW Coefficient of Variation 14.5 % (11.5-14.5); Red Blood Count 3.54 M/uL (4.20-5.40); White Blood Count 7.69 K/ul (4.8-10.8)
[2024-05-27 04:28] LABS: Calcium 7.9 mg/dl (8.6-10.3); Creatinine Clr Calc Pharmacy 43.9 ml/min; Magnesium 2.1 mg/dl (1.7-2.4); Phosphorus 2.9 mg/dl (2.5-4.9); Potassium 3.8 mmol/L (3.5-5.1)
[2024-05-27 04:34] LABS: ANTI-Xa, UFH(UnfractionatedHep 0.31 IU/ml (0.3-0.7)
[2024-05-27 04:41] LABS: Basophils # (auto) 0.01 K/uL (0.00-0.20); Basophils % (auto) 0.1 %; Eosinophils # (auto) 0.04 K/uL (0.00-0.50); Eosinophils % (auto) 0.5 %; Immature Granulocytes # (auto) 0.46 K/uL (0.01-0.20); Lymphocytes # (auto) 0.74 K/uL (1.20-3.40); Lymphocytes % (auto) 9.6 %; Monocytes # (auto) 0.77 K/uL (0.11-0.59); Neutrophils # (auto) 5.67 K/uL (1.40-6.50); Neutrophils % (auto) 73.8 %; Polychromasia 1+
[2024-05-27] MEDS: LANTUS PER UNIT CHARGE SC SCH ×2 (08:05→20:45)
[2024-05-27] MEDS: amLODIPine BESYLATE 5 MG TAB PO SCH (11:20)
--- NOTE | 2024-05-27 11:59 | Infectious Disease Consult ---
Date of Consultation May 27, 2024 Assessment & Plan (1) Influenza A: (2) Acute osteomyelitis of toe: (3) MRSA pneumonia: Plan Problems: #Influenza A #MRSA pneumonia #Aspergillus in respiratory culture #R first metatarsal osteomyelitis #JOLENE #T2DM #R second toe osteomyelitis s/p resection (02/25/24) Micro: 3/ R foot wound cx: low counts mixed probable skin microbiota Abx: Pip-tazo 05/23 - present Vanc 05/24 - present 64 yo F with uncontrolled T2DM on insulin with neuropathy, PAD, HTN, R second toe osteomyelitis s/p resection (02/25/24) who presented on 05/23 with altered mental status, cough, congestion, found to be in DKA with acute renal failure, with influenza A and MRSA pneumonia. Was intubated on arrival and started initially on Zosyn. Vancomycin added 05/24 when sputum culture grew MRSA. Pt extubated 05/25. Podiatry was consulted on 05/25 for R foot wound--noted plantar first metatarsal head ulcer with extension directly dorsal at level of MTPJ, with scant purulent drainage, no ascending cellulitis. XR R foot showed possible early osteomyelitis in the distal medial aspect of the first metatarsal. Wound culture growing low counts of mixed probable skin microbiota. Podiatry recommending MRI when stable and may consider surgical intervention next week. ID consulted because 05/23 sputum culture now growing Aspergillus in addition to MRSA. Pt currently on 2 L NC, fever curve improving, leukocytosis resolved. Recommendations: -Unclear significance of Aspergillus in respiratory culture, as pt is clinically improving. Ordered serum Aspergillus Ag and beta D glucan. Recommend CT chest for further evaluation to check for signs of pulmonary Aspergillosis -Can continue vancomycin for MRSA pneumonia -Can continue pip-tazo in setting of R foot wound with osteomyelitis. If pt goes to the operating room next week, please send tissue/bone for culture, and proximal margin for pathology Will continue to follow. Please note that ID does not round or write notes over the weekend. If questions or concerns arise, please contact the Infectious Disease Call Center and ask to speak with the covering ID physician. Consultation Information This patient recommendation is based on a telemedicine consult request which was completed asynchronously through chart review and information provided by the primary physician. The patient was not seen or examined today. The evaluation is consultative in nature and all patient care and treatment decisions can either be accepted or rejected by the patient's primary hospital-based treating physician using their own independent medical judgment for their patient. [employer] contact information: Please call [facility] Call Center . (Phone Number For Physician Use Only) Time Spent Reviewing Chart: 31+ minutes History of Present Illness Reason for Consultation: MRSA and Aspergillus in respiratory culture Attending Physician: Rah Jacobs MD History of Present Illness 64 yo F with uncontrolled T2DM on insulin with neuropathy, PAD, HTN, R second toe osteomyelitis s/p resection (02/25/24) who presented on 05/23 with altered mental status. Per EMS, pt had cough and congestion since 05/19, and became delirious on 05/21. On arrival, labs demonstrated WBC 14.42, Na 108, K 6.4, Cr 3.87, glucose 1467, lactate 2.4, troponin 6476.9, procalcitonin 1.66. UA with 6- 10 WBCs. Influenza A detected. MRSA nares negative. CXR with shallow inspiration with atelectasis vs early pneumonia at L lung base. Became agitated with periods of obtundation, developed hypotension, and was intubated. Cardiac cath showed diffuse coronary disease, no interventions performed. Pt was started on Zosyn. Sputum culture grew MRSA, and vancomycin was added on 05/24. Podiatry was consulted on 05/25 for R foot wound--noted plantar first metatarsal head ulcer with extension noted directly dorsal at level of MTPJ, with scant purulent drainage, no ascending cellulitis. XR R foot showed possible early osteomyelitis in the distal medial aspect of the first metatarsal. Wound culture growing low counts of mixed probable skin microbiota. Podiatry recommending MRI when stable and may consider surgical intervention next week. Pt was extubated 05/25, and weaned off bipap 05/26. Currently on 2 L NC. ID consulted because 05/23 sputum culture now growing Aspergillus in addition to MRSA. Allergies Allergy/AdvReac Type Severity Reaction Status Date / Time No Known Allergies Allergy Verified 05/23/24 10:03 Home Medications Medication Instructions Recorded Confirmed Type ergocalciferol (vitamin D2) 1,250 50,000 unit PO Q14D 12/14/23 05/23/24 History mcg (50,000 unit) capsule insulin glargine 100 unit/mL (3 23 unit subcut UD 12/14/23 05/23/24 History mL) subcutaneous pen (Lantus Solostar U-100 Insulin) metoprolol succinate 50 mg 50 mg PO HS 12/14/23 05/23/24 History tablet,extended release 24 hr risedronate 150 mg tablet 150 mg PO MONTHLY 12/14/23 05/23/24 History tramadol 50 mg tablet 50 mg PO UD PRN Pain 12/14/23 05/23/24 History vit A 7,160 unit-vit C 113 mg-vit 1 tab PO QAM 12/14/23 05/23/24 History E 100 unux-qajf-lzevgc tablet insulin aspart U-100 100 unit/mL 1 sliding scale dose SC ACHS #10 mL 12/22/23 05/23/24 Rx subcutaneous solution (Novolog U-100 Insulin aspart) aspirin 81 mg tablet,delayed 81 mg PO DAILY #30 tabs 01/14/24 05/23/24 Rx release (Adult Aspirin Regimen) atorvastatin 20 mg tablet 20 mg PO DAILY #90 tabs 01/14/24 05/23/24 Rx gabapentin 600 mg tablet 600 mg PO BID #180 tabs 02/05/24 05/23/24 Rx amlodipine 5 mg tablet (Norvasc) 5 mg PO UD 05/23/24 05/23/24 History empagliflozin 25 mg tablet 25 mg PO UD 05/23/24 05/23/24 History (Jardiance) lisinopril 30 mg tablet 30 mg PO UD 05/23/24 05/23/24 History Patient History Medical History Acute kidney injury Anemia PAD (peripheral artery disease) Sepsis Osteoporosis Hypertension Neuropathy T2DM (type 2 diabetes mellitus) Social History Smoking Status: Unknown if ever smoked Second Hand Exposure: No; Do You Dip or Chew Tobacco: No; Hx Alcohol Use: No Hx Substance Use: No Preferred Language: Tajik Communication Ability: Impaired Communication Ability Comment: pt sedated on ventilator Wedding Consultant Required: No Beliefs That Will Affect Care: None Current Living Situation: Spouse Current Living Situation Comment: with spouse Feels Safe at Home: Yes Assistive Devices: None Results & Data Vital Signs (Past 12 Hours) Vital Signs Temp Pulse Pulse Resp BP BP Pulse Ox 05/27/24 08:00 36.8 C 70 20 175/88 H 92 05/27/24 07:33 05/27/24 07:14 71 05/27/24 04:00 37 C 68 23 137/77 98 05/27/24 03:46 149/86 H 05/27/24 03:45 67 24 95 05/27/24 03:40 69 17 98 05/27/24 03:30 37 C 72 14 96 05/27/24 03:24 36.9 C 69 26 H 95 05/27/24 02:39 37.1 C 69 25 H 98 05/27/24 02:12 37.2 C 64 23 98 05/27/24 01:39 37.3 C 73 25 H 98 05/27/24 01:06 37.4 C 72 23 99 05/27/24 01:00 157/72 H 05/27/24 00:57 37.4 C 69 24 98 05/27/24 00:33 37.5 C 72 24 98 05/27/24 00:03 37.5 C 70 27 H 96 05/27/24 00:00 159/75 H 05/27/24 00:00 159/75 H 05/27/24 00:00 159/75 H 05/27/24 00:00 159/75 H O2 Del Method O2 Flow Rate FiO2 05/27/24 08:00 Nasal Cannula 2 05/27/24 07:33 Nasal Cannula 2 05/27/24 07:14 05/27/24 04:00 BiPAP 30 05/27/24 03:46 05/27/24 03:45 05/27/24 03:40 30 05/27/24 03:30 BiPAP 30 05/27/24 03:24 05/27/24 02:39 05/27/24 02:12 05/27/24 01:39 05/27/24 01:06 05/27/24 01:00 05/27/24 00:57 05/27/24 00:33 05/27/24 00:03 BiPAP 30 05/27/24 00:00 05/27/24 00:00 05/27/24 00:00 05/27/24 00:00 Laboratory Results Short CBC 05/27/24 Range/Units 03:40 WBC 7.69 (4.8-10.8) K/ul Hgb 9.6 L (12.0-16.0) g/dl Hct 28.8 L (37.0-47.0) % Plt Count 125 L (130-400) K/uL [facility] 05/27/24 03:40 Sodium 141 Potassium 3.8 Chloride 111 H Carbon Dioxide 28 BUN 47 H D Creatinine 1.47 H Glucose 136 H Calcium 7.9 L Medications Administered Current Inpatient Medications Amlodipine Besylate (Amlodipine Besylate 5 Mg Tab) 5 mg PO DAILY [facility] Stop: 06/26/24 08:59 Last Admin: 05/27/24 11:20 Dose: 5 mg Aspirin (Aspirin 81 Mg Ectab) 81 mg PO DAILY [facility] Stop: 06/25/24 11:32 Last Admin: 05/27/24 11:19 Dose: 81 mg Atorvastatin Calcium (Atorvastatin 40 Mg Tab) 40 mg PO DAILY [facility] Stop: 06/25/24 11:32 Last Admin: 05/27/24 11:19 Dose: 40 mg Pantoprazole Sodium (Protonix) 40 mg in 10 mls @ 5 mls/min IV QPM [facility] Stop: 06/22/24 20:59 Last Admin: 05/26/24 20:43 Dose: 5 mls/min Piperacillin Sod/Tazobactam Sod (Zosyn) 4.5 gm in 100 mls @ 25 mls/hr IV Q8H [facility]; Protocol Stop: 07/04/24 21:59 Last Infusion: 05/27/24 09:18 Dose: Infused Heparin Sodium/Dextrose (Heparin 27046 Unit/500 Ml D5w) 25,000 units in 500 mls @ 22 mls/hr IV .[id number] [facility]; Protocol Stop: 06/23/24 19:59 Last Titration: 05/27/24 07:02 Dose: 1,100 units/hr, 22 mls/hr Amiodarone HCl/Dextrose (Nexterone / D5w) 360 mg in 200 mls @ 16.667 mls/hr IV .Q12H [facility] Stop: 06/24/24 02:59 Last Admin: 05/27/24 04:35 Dose: 0.5 mg/min, 16.7 mls/hr Acetaminophen (Ofirmev) 1,000 mg in 100 mls @ 400 mls/hr IV Q8H PRN PRN Reason: Pain or Fever Stop: 05/29/24 23:07 Last Infusion: 05/26/24 23:43 Dose: Infused Insulin Aspart (Insulin Aspart Per Unit Charge) 0 units SC Q4 [facility] Stop: 06/23/24 11:59 Last Admin: 05/27/24 12:18 Dose: 1 units Insulin Glargine (Lantus Per Unit Charge) 20 units SC DAILY [facility] Stop: 06/25/24 08:59 Last Admin: 05/27/24 08:05 Dose: 20 units Labetalol HCl (Labetalol Hcl Iv 5 Mg/Ml 20ml) 5 mg IV Q2H PRN PRN Reason: SBP >180 and/or DBP >90 Stop: 06/25/24 05:59 Last Admin: 05/26/24 23:16 Dose: 5 mg Metoprolol Succinate (Metoprolol Succ 50mg Ext Rel Tab) 50 mg PO HS [facility] Stop: 06/25/24 20:59 Last Admin: 05/26/24 21:22 Dose: Not Given Miscellaneous Information (Pharmacy Glycemic Mgmt Consult) 1 each N/A UD PRN PRN Reason: Consult Stop: 06/22/24 10:53 Miscellaneous Information (Vancomycin Consult Active) 1 each N/A UD PRN PRN Reason: Consult Stop: 06/23/24 08:52 (2) Acute osteomyelitis of toe Laterality: right Qualified Code(s): M86.171 - Other acute osteomyelitis, right ankle and foot
--- NOTE | 2024-05-27 12:52 | Pharmacy Report ---
Pharmacy PK ABX Note - Date of Service May 27, 2024 - Assessment and Plan Assessment 05/27: * Day #4 vancomycin + zosyn. 05/23 sputum culture (+) MRSA and Aspergillus spp. Surface foot culture (-). ID consulted. SCr improving (3.87-->1.47mg/dl today) 05/26: * 64 year old F receiving VANCOMYCIN + ZOSYN for treatment of CAP as well as recent h/o R foot osteo. * Pertinent microbiologic data includes: Negative MRSA Nasal Swab; + MRSA growing in sputum cx (vent suction cx); blood and urine cx's no growth to date; surface wound cx obtained from R foot (however these are not reliable for identification of infecting organism). Foot Xray read as possible early o steo. Prior foot cx's had growing GBS, finegoldia, gemella and strep intermedius. Podiatry has been consulted. Possible MRI at a later date when more stable Plan Vancomycin * Currently dosing by levels due to rapidly changing SCr. * Received 750mg IV X 2 doses on 05/26 (@ 0134 & 8). Random level last evening 14.7mcg/mL (@ 1999) and re-dosed. * Random level obtained today @ 1119, 13.2mcg/mL (~13.5hr level)- therapeutic. Will re-dose with vancomycin 1gm (~10mg/kg) IV X 1 given SCr still ~ 2X baseline. * Repeat random level tomorrow AM with AM labs. If renal function continues to down-trend, likely will be able to schedule a regimen tomorrow. Pharmacy will continue to follow and will adjust dose/frequency as necessary. Thank you. Pharmacy has transitioned to AUC monitoring for vancomycin. AUC/YANETH is the preferred PK/PD target and is associated with decreased risk of nephrotoxicity compared to traditional trough targets.
[2024-05-27] MEDS: VANCOMYCIN HCL 1,000 MG/270 ML BAG IV ONE (13:40)
--- NOTE | 2024-05-27 14:59 | Pharmacy Report ---
Pharmacy Glycemic Short Note 2 - Date of Service May 27, 2024 - Glycemic Short BSG Results (Last 24 hours): 05/26/24 05/26/24 05/27/24 16:12 20:08 00:04 Glucose POC Glucose 172 H 146 H 121 H 05/27/24 05/27/24 05/27/24 03:40 03:44 08:00 Glucose 136 H POC Glucose 139 H 160 H 05/27/24 11:48 Glucose POC Glucose 177 H OUTPATIENT ANTIDIABETIC REGIMEN: * empagliflozin 25mg PO daily * Lantus 23 units SQ BID (vs. 46 units daily) * Novolog TIDM HbA1C: 11.2% 05/24/24 (est avg BSG ~275mg/dL) ASSESSMENT: 05/27: * BSGs 072-022-110-139-160mg/dL the last 24h. Received 60 units of basal and 19 units of bolus insulin yesterday. * Was NPO into this AM, diet now advanced. Continues on antibiotics, heparin and amiodarone infusions. * Lantus dose decreased this AM to 20 units given NPO status. Plan for HS scale 20-30 units depending on BSG. Novolog ACHS 07/09. 05/26 * Patient was extubated yesterday * Pressors have been weaned off * Patient remains NPO * 73 units SQ insulin given over last 24 hrs with majority of BSGs 200-250mg/dL * Will continue to up-titrate basal insulin dose, cautiously however given ongoing NPO status. Q 4 hr Novolog with more aggressive correction will be used for next 24 hrs 05/25 * Patient remains intubated this AM, however sedation being held in anticipation of possible extubation later today * Pressor support continues but has been weaned (phenylephrine at 0.2mcg/kg/min) * Pt did experience a fib yesterday evening leading to initiation of amiodarone and heparin gtts (both mixed in D5W) * BSGs in 200s this AM, acceptable per current plan of care. * Per discussion at multidisciplinary rounds, pt will be transitioned off the IV insulin infusion this AM. Insulin drip running 2.6-4.4units/hr over last 12 hrs with higher rates coinciding with addition of D5W containing IV meds. Will escalate Lantus and Novolog doses to "high" stress dosing based upon weight given current insulin needs. 3/ * Patient remains intubated and sedated this AM. * Pressor support continues (phenylephrine @1.5mcg/kg/min) * BSGs have trending down into the 300s this AM and AG acidosis has resolved (AG = 8 and Bicarb 21) * Renal fxn improving, SCr decreasing and UOP increasing * Patient discussed on multidisciplinary rounds this AM. Patient will continue on IV insulin infusion at this time, however will add some basal insulin today as this will make transition to SQ regimen easier in the near future. Per Hedis Analyst, BSGs in 200s acceptable for this patient given A1c and BSGs on presentation. Nutrition to begin today, Customer Service Assistant currently working up a plan. Dextrose containing IVFs will not be utilized given addition of nutrition. May need to add dextrose to maint IVFs if BSGs do fall unexpectedly. PLAN FOR INPATIENT GLYCEMIC CONTROL: * Hold outpatient oral diabetes medications * Basal insulin * Lantus 20 units X 1 this AM and 20-30 units HS depending on BSG. * Bolus insulin * Novolog SQ ACHS * Goal range: 110 - 140mg/dL * Correction factor: 18mg/dL/unit * Nutritional / Prandial insulin per carb ratio of 1 unit per 6 grams CHO
[2024-05-27] MEDS: OPTIRAY 320 100ml IV ONE (15:26)
--- NOTE | 2024-05-27 15:54 | CT Scan Report ---
CT OF THE CHEST WITH AND WITHOUT CONTRAST CLINICAL HISTORY: Evaluate for signs of pulmonary aspergillosis. COMPARISON STUDY: Chest radiograph May 26, 2024. TECHNIQUE: Axial images of the chest were obtained before and after intravenous administration of 90 cc of Optiray 320 IV. Automated exposure control was utilized for the study. A dose lowering techniq ue was utilized adhering to the principles of ALARA. FINDINGS: Prominent bilateral hilar lymph nodes are likely reactive. No pathologically enlarged lymph nodes are present. The heart is moderately enlarged. There is no pericardial effusion. Circumferenti al wall thickening of the mid to distal esophagus is present. There is minimal adjacent edema. There are small bilateral pleural effusions, left larger than right. No pneumothorax is present. Central ai rways are patent. Interlobular septal thickening is present. Multifocal consolidation is most pronoun loli within the lower lobes. There are also ground glass opacities and small foci of consolidation wit hin the upper lobes. No cavitation is present. There is severe disc space narrowing at the T2-T3 leve l with irregularity of the inferior endplate of T2 and superior endplate of T3. No paravertebral infl ammation is identified by CT. Hepatic steatosis is incidentally noted. There is body wall edema. IMPRESSION: 1. Extensive airspace opacities throughout the lungs, including multifocal consolidation and groundg lass opacities. The findings favor multifocal pneumonia. No CT evidence for a fungal infection. 2. Cardiomegaly with small bilateral pleural effusions. Interlobular septal thickening favors interst itial pulmonary edema. 3. Circumferential wall thickening of the mid to distal esophagus suggestive of esophagitis. 4. Disc space narrowing at T2-T3 with adjacent endplate irregularity. No paravertebral inflammation. The findings favor a degenerative process or remote sequela of discitis/osteomyelitis. Acute discitis /osteomyelitis is considered less likely. If back pain, an MRI of the thoracic spine with and without contrast could be obtained. ACT 112: Negative or not required by law. Electronically signed by: Yuri Angela M.D. 05/27/2024 3:53 PM
[2024-05-27] MEDS: PANTOprazole 40 MG/10 ML SYR IV SCH (16:56)
[2024-05-27] MEDS: hydrALAZINE HCL 20 MG/ML VIAL IV STA (16:57)
[2024-05-27] MEDS: SUCRALFATE 1 GM/10 ML UDC PO SCH (16:57)
[2024-05-27] MEDS ORDERED: ONDANSETRON INJ 2 MG/ML 2 ML VIAL IV PRN (17:07)
[2024-05-27] MEDS: INSULIN ASPART PER UNIT CHARGE SC SCH (17:15)
--- NOTE | 2024-05-27 17:23 | Cardiology Progress Note ---
Date of Service May 27, 2024 Assessment & Plan (1) PAF (paroxysmal atrial fibrillation): Plan: Currently in sinus rhythm after conversion while on amiodarone drip. Once is clear that she will be able to take her pills safely then we should discontinue the amiodarone drip and change to an oral regimen. I do not think she will need any further amiodarone as her IV medication will remain in her system for quite some time. We can probably control her with beta-giana alone. She will need to be on oral anticoagulant as well. Eliquis 5 mg p.o. twice daily given her renal function. (2) Benign essential hypertension: Plan: Blood pressure is too elevated at this time. Agree with the amlodipine and metoprolol succinate. Ultimately, she should also be on an TOR inhibitor or angiotensin receptor giana but will need to wait until her renal function improves back to baseline. Could increase the amlodipine to 10 mg daily if needed. (3) Coronary artery disease: Plan: Blood pressure above target, heart rate near target. Gently titrate up the metoprolol after the amiodarone is discontinued. Continue guideline directed medical therapy for secondary prevention including aspirin 81 mg daily, a atorvastatin 40 mg daily, Toprol-XL, and once nephrology feels it is safe we can restart TOR inhibitor or angiotensin receptor giana. Plan I am unavailable over the weekend. We have locum's coverage for interventions and they will not be rounding on any patients. General configuration manager on-call is aware of the patient and can be called as needed if patient's cardiac status worsens. Otherwise, I will see the patient on Thursday. Admission and Anticipated Discharge Date Admission Date: May 23, 2024 Subjective Patient was seen in the ICU. She was somnolent but arousable. She denied any chest pain or shortness of breath. She voices no complaints or concerns. Monitor demonstrated sinus rhythm. Review of Systems Review of Systems: Negative except as per HPI Physical Exam Constitutional: Obese. Chronically ill-appearing. More alert than on previous evaluation. Neck: No JVD Respiratory: Diminished air movement. No wheezing, rhonchi, appreciated. Scattered crackles in the bases are dull. Cardiovascular: Regular rate and rhythm. No gallops, rubs, or murmurs. No significant edema. Her left hand around the IV site is puffy. Neurologic: Arousable. Appropriate responses. Mildly somnolent. Results & Data Vital Signs (Past 12 Hours) Vital Signs Temp Pulse Pulse Resp BP BP Pulse Ox 05/27/24 12:00 172/93 H 05/27/24 12:00 36.8 C 05/27/24 11:57 76 25 H 93 05/27/24 08:00 36.8 C 70 20 175/88 H 92 05/27/24 07:33 05/27/24 07:14 71 O2 Del Method O2 Flow Rate 05/27/24 12:00 05/27/24 12:00 05/27/24 11:57 05/27/24 08:00 Nasal Cannula 2 05/27/24 07:33 Nasal Cannula 2 05/27/24 07:14 PG Care Time/CCT Total # of Minutes Spent Total Time Spent with Patient: Total time spent is greater than 50% in coordination of care (as documented) at patient's floor/unit and/or counseling patient: Coding Level of Care Code 32244 SUB INP/OBS CARE 2/35MIN Diagnoses PAF (paroxysmal atrial fibrillation) I48.0 Benign essential hypertension I10 Coronary artery disease I25.10
--- NOTE | 2024-05-27 19:34 | Hospitalist Progress Note ---
Date of Service May 27, 2024 Assessment & Plan (1) Metabolic encephalopathy: (2) DKA (diabetic ketoacidosis): (3) Influenza A: (4) Acute kidney injury: (5) Hypertension: (6) Acute osteomyelitis of toe: Plan Ms. Hay is a 64F with PMHx of Uncontrolled T2DM on Insulin with Neuropathy, PAD, and HTN who was admitted Critically ill with influenza A, MRSA pneumonia, septic shock, DKA, and NSTEMI.. Patient immmediately went to tutorial laboratory supervisor due to elevated troponins and inferior wall EKG changes. No PCI indicated and findings suggesting of Type II NSTEMI. she is slowly improving but remains very ill and lethargic, continue inpatient hospitalization in PCU as she is not clinically stable for multiple acute issues septic shock due to influenza A and MRSA pneumonia, present on admission, resolved continue to treat MRSA pneumonia with IV vancomycin reviewed chest CT films from 05/27 that shows multifocal bilateral pneumonia that is fairly severe, small bilateral pleural effusions DKA was treated with IV fluids and IV insulin and has resolved, continue treatment for uncontrolled type 2 diabetes. A1c 11.2 hypoglycemic this morning, reduced glargine to 8 units at at bedtime, leave Premeal correctional insulin at same dose and assess the trend currently on clear liquids and not having much oral intake -consult clinical informatics educator Thursday acute pulmonary edema - volume overloaded on exam today and BNP>1000 -lasix 40 IF x 1 assess response -AM BMP, mag acute kidney injury - admission creatinine was in the threes baseline is <1. precision lens polisher consulted, she does have diabetic kidney disease, creatinine has been improving nicely - continue to monitor BMP and urine output still has Roland, appears to be hypervolemic today treat with Lasix 40 mg IV x 1, replacing hypokalemia p.o., check magnesium in the morning acute metabolic encephalopathy has improved since admission but remains lethargic and disoriented. Ordered VBG today which I reviewed. 7.. Not hypercarbic, normal pH reviewed medlist - avoid sedating medications, continue to treat acute conditions presumed TEJAL/OHS -required intubation in ED for critical illness, metabolic acidosis, airway protection Aspergillus in sputum - unclear significance, may be colonizer since she continues to improve without treatment, reviewed CT which has no clear evidence of fungal infection, serum aspergillus Ag and B-D-glucan pending, reviewed ID recs NSTEMI - had ischemic appearing EKG changes in ED and HS-trop 600s so taken to tutorial laboratory supervisor by Dr. Dick - no occlusions, suspected to be caused by small vessel disease Hypertension -continue high dose statin, metoprolol, aspirin - try to continue with PPI IV bid has black stools -continue amlodipine, increasing metoprolol Melena, probable slow GI bleeding - Hg stable, esophagitis on CT chest, continue IV PPI bid, monitor Hg. Heparin drip was stopped AM 3/7, try to continue aspirin Paroxysmal afib - had rapid AF earlier in hospital course, treated with amiodarone IV, discontinued -currently NSR, continue metoprolol - increase dose as able -apixaban held with melena R foot 1st MT Acute Osteomyelitis /History of OM R Foot with Previous Amputations (Dec-Feb 2024): - cont vancomycin & zosyn -Culture right foot showing gram-positive cocci on Gram stain and low counts mixed probable skin microbiota - Podiatry consulted and first metatarsal head of r foot is likely osteomyelitic, recommending wound care and deferring imaging and surgical management until patient becomes more stable unless needed sooner. T2-[address] chest - ddx is degenerative disease or resolved OM, possible to be active OM - does not seem to have back pain - assess further once more alert and mobile - continue antibiotics for now - MRI may be helpful, cannot currently tolerate safely DVT ppx - SCD, AC held ongoing melena Discussed poc with HOSE FINISHER at bedside. Remains unstable continue PCU loc Admission and Anticipated Discharge Date Admission Date: May 23, 2024 Subjective awake but remains lethargic, oriented to hospital once prompted, not to specific hospital or town, not to situation. Does not recall me from prior days Did wear bipap overnight Says breathing is a little difficult No chest pain Bedside RN reports black stools overnight Review of Systems Review of Systems: As noted in subjective Physical Exam Physical Exam: PHYSICAL EXAMINATION Last 24h vital signs reviewed, see documentation in flowsheet General: sitting up in ICU bed lethargic arouses to voice HEENT: Normocephalic, atraumatic, pupils round and equal, sclerae anicteric, no conjunctival injection, left eyelid tends to close more than the right but she can open both of them Roland, she is not able to tell me whether this is usual for her, dry mucus membranes Lungs: mildly increased work of breathing coarse breath sounds bilaterally anteriorly with some expiratory wheezing Heart: Regular rate and rhythm, no murmurs. unable to see neck veins Abdomen: Soft, nontender, nondistended. Bowel sounds present. Extremities: Warm, dry, well-perfused. 2+ bilateral extremity edema. Neuro: see above in subjective, face symmetric, EOMI, PERRL,moves 4 extremities spontaneously Psych: Normal affect and behavior Results & Data Results & Data Vital Signs (Past 12 Hours) Vital Signs Temperature, heart rate, blood pressure, oxygenation, respiratory rate reviewed. Temp Pulse Pulse Resp BP BP Pulse Ox 05/27/24 16:09 74 28 H 90 05/27/24 16:00 167/82 H 05/27/24 12:00 172/93 H 05/27/24 12:00 98.2 F 05/27/24 11:57 76 25 H 93 05/27/24 08:00 98.2 F 70 20 175/88 H 92 05/27/24 07:33 05/27/24 07:14 71 O2 Del Method O2 Flow Rate 05/27/24 16:09 05/27/24 16:00 05/27/24 12:00 05/27/24 12:00 05/27/24 11:57 05/27/24 08:00 Nasal Cannula 2 05/27/24 07:33 Nasal Cannula 2 05/27/24 07:14 Laboratory Results reviewed blood glucoses notable for hypoglycemia early this morning to 47, overall glucoses trended down significantly the last 24 hours urine output 1300 and weight is up a kilogram white blood count is 10 hemoglobin stable at 9.8, platelet count has normalized at 171 hypokalemia potassium 3.2, renal failure continues to improve creatinine decreased to 1.34 serum iron low at 16 BNP severely elevated above 1000 vancomycin trough is therapeutic Diagnostic Findings Chest CT reviewed PG Care Time/CCT Total # of Minutes Spent Total Time Spent with Patient: Total time spent is greater than 50% in coordination of care (as documented) at patient's floor/unit and/or counseling patient: Coding Level of Care Code None Diagnoses Metabolic encephalopathy G93.41 DKA (diabetic ketoacidosis) E11.10 Diabetes mellitus type: type 2 Influenza A J10.1 Acute kidney injury N17.9 Primary hypertension I10 Hypertension type: primary hypertension Acute osteomyelitis of toe of right foot M86.171 Laterality: right (2) DKA (diabetic ketoacidosis) Diabetes mellitus type: type 2 (5) Hypertension Hypertension type: primary hypertension Qualified Code(s): I10 - Essential (primary) hypertension (6) Acute osteomyelitis of toe Laterality: right Qualified Code(s): M86.171 - Other acute osteomyelitis, right ankle and foot
[2024-05-27] MEDS: Nursing to Pharmacy Communication SCH (20:36)
[2024-05-27] MEDS: FUROSEMIDE 20 MG TAB PO SCH (20:36)
[2024-05-28 06:06] LABS: Hemoglobin 9.8 g/dl (12.0-16.0); Mean Corpuscular Hemoglobin 26.7 pg (25.0-34.0); Mean Corpuscular Hgb Conc 32.7 g/dL (32.0-36.0); Mean Corpuscular Volume 81.7 fL (80.0-100.0); Mean Platelet Volume 11.8 fL (9.4-12.4); Nucleated RBC # (auto) 0.03 K/uL (0.00-0.12); Nucleated RBC % (auto) 0.3 %; Platelet Count 171 K/uL (130-400); RDW Coefficient of Variation 14.6 % (11.5-14.5); RDW Standard Deviation 43.8 fL (36.4-46.3); Red Blood Count 3.67 M/uL (4.20-5.40); White Blood Count 10.01 K/ul (4.8-10.8)
[2024-05-28 06:24] LABS: Albumin Globulin Ratio 0.8 (0.9-2); Albumin Level 2.4 gm/dl (3.4-5.0); BUN Creatinine Ratio 23.9 (10-20); Bilirubin,Total 0.4 mg/dl (0.2-1.0); Calcium 7.8 mg/dl (8.6-10.3); Creatinine Clr Calc Pharmacy 48.2 ml/min; Globulin 3.1 gm/dl (2.5-4.0); Potassium 3.2 mmol/L (3.5-5.1); Total Protein 5.5 gm/dl (6.0-8.3)
[2024-05-28] MEDS: DEXTROSE 50% 50 ML SYRINGE IV PRN (06:28)
[2024-05-28 06:29] LABS: Basophils # (auto) 0.03 K/uL (0.00-0.20); Basophils % (auto) 0.3 %; Eosinophils # (auto) 0.16 K/uL (0.00-0.50); Eosinophils % (auto) 1.6 %; Immature Granulocytes # (auto) 0.78 K/uL (0.01-0.20); Immature Granulocytes % (auto) 7.8 %; Lymphocytes # (auto) 0.95 K/uL (1.20-3.40); Lymphocytes % (auto) 9.5 %; Monocytes # (auto) 1.78 K/uL (0.11-0.59); Monocytes % (auto) 17.8 %; Neutrophils # (auto) 6.31 K/uL (1.40-6.50); Polychromasia 1+
[2024-05-28] MEDS ORDERED: DEXTROSE 50% 50 ML SYRINGE IV PRN (06:33)
[2024-05-28] MEDS ORDERED: GLUCAGON FOR INJ 1 MG VIAL SQ PRN ×2 (06:33→06:45)
[2024-05-28] MEDS ORDERED: CARBOHYDRATES FOR HYPOGLYCEMIA PO PRN (06:33)
[2024-05-28] MEDS ORDERED: GLUCOSE 40% GEL 15 GM TUBE PO PRN (06:45)
[2024-05-28] MEDS ORDERED: GLUCOSE 10 TAB/TUBE PO PRN (06:45)
[2024-05-28] MEDS: DEXTROSE 50% 50 ML SYRINGE IV ONE (06:50)
--- NOTE | 2024-05-28 09:33 | Pharmacy Report ---
Pharmacy PK ABX Note - Date of Service May 28, 2024 - Assessment and Plan Assessment 05/28: * Day #5 of vancomycin + zosyn. MRSA in sputum. ID recommends continuing Vancomycin and uncertain of significance of Aspergillus in sputum, ordering more fungal tests. Also recommend continuing Zosyn for foot wound. * SCr continues to improve, 1.34 mg/dL this AM. * Will schedule vanc dosing today. 05/27: * Day #4 vancomycin + zosyn. 05/23 sputum culture (+) MRSA and Aspergillus spp. Surface foot culture (-). ID consulted. SCr improving (3.87-->1.47mg/dl today) 05/26: * 64 year old F receiving VANCOMYCIN + ZOSYN for treatment of CAP as well as recent h/o R foot osteo. * Pertinent microbiologic data includes: Negative MRSA Nasal Swab; + MRSA growing in sputum cx (vent suction cx); blood and urine cx's no growth to date; surface wound cx obtained from R foot (however these are not reliable for identification of infecting organism). Foot Xray read as possible early osteo. Prior foot cx's had growing GBS, finegoldia, gemella and strep intermedius. Podiatry has been consulted. Possible MRI at a later date when more stable Plan Vancomycin * Have been dosing by level due to JOLENE. Most recent dose was 1000 mg around 1300 on 05/27/24. * Random level obtained 05/28/24 resulted as 15.1 mcg/mL. This is predicted to achieve target AUC/YANETH of 400-600 mg/L.hr * Will schedule 1000 mg IV every 18 hours starting at 1000 today. Predicted AUC at steady state: 470 mg/L.hr * Repeat random level ordered for: 05/30/24 Pharmacy will continue to follow and will adjust dose/frequency as necessary. Thank you. Pharmacy has transitioned to AUC monitoring for vancomycin. AUC/YANETH is the preferred PK/PD target and is associated with decreased risk of nephrotoxicity compared to traditional trough targets.
[2024-05-28] MEDS: VANCOMYCIN HCL 1,000 MG/270 ML BAG IV SCH (09:55)
[2024-05-28] MEDS: LANTUS PER UNIT CHARGE SC SCH (11:01)
[2024-05-28 11:51] LABS: Base Excess VBG 3.1 mEq/L; HCO3 VBG 29 mmol/L; Oxygen Saturation VBG < 60.0 %; PCO2 VBG 50 mmHg (38-50); PO2 VBG 27 mmHg; pH VBG 7.37 (7.36-7.41)
[2024-05-28] MEDS: FUROSEMIDE 40 MG/4 ML VIAL IV ONE ×2 (13:18→13:22)
[2024-05-28] MEDS: POTASSIUM CHLORIDE CRTAB 20 MEQ TABCR PO SCH (13:22)
--- NOTE | 2024-05-28 13:37 | Billing Data ---
Date of Service May 28, 2024 Coding Level of Care Code 43319 SUB INP/OBS CARE MIN
[2024-05-28 17:40] LABS: BUN Creatinine Ratio 21.7 (10-20); Calcium 7.9 mg/dl (8.6-10.3); Creatinine Clr Calc Pharmacy 45.2 ml/min; Magnesium 1.7 mg/dl (1.7-2.4); Potassium 3.9 mmol/L (3.5-5.1)
--- NOTE | 2024-05-28 18:15 | Hospitalist Progress Note ---
Date of Service May 27, 2024 Assessment & Plan (1) Metabolic encephalopathy: (2) DKA (diabetic ketoacidosis): (3) Influenza A: (4) Acute kidney injury: (5) Hypertension: (6) Acute osteomyelitis of toe: Plan Ms. Hay is a 64F with PMHx of Uncontrolled T2DM on Insulin with Neuropathy, PAD, and HTN who was admitted Critically ill with influenza A, MRSA pneumonia, septic shock, DKA, and NSTEMI.. Patient immmediately went to field laboratory operator due to elevated troponins and inferior wall EKG changes. No PCI indicated and findings suggesting of Type II NSTEMI. remains encephalopathic and acutely ill septic shock due to influenza A and MRSA pneumonia, present on admission, re solved MRSA pneumonia - cont IV vancomycin, trough therapeutic Aspergillus in sputum culture, consulted ID, reviewed recs, fungal assays sent, ordered chest CT DKA was treated with IV fluids and IV insulin and has resolved, continue treatment for uncontrolled type 2 diabetes. A1c 11.2 -BG at goal on SQ insulins - appreciate pharmacy management acute kidney injury - admission creatinine was in the threes baseline is <1. music promoter consulted, she does have diabetic kidney disease, creatinine has been improving nicely - Cr improved to 1.4, good UOP, gilliam acute metabolic encephalopathy - related to acute illnesses - not on sedating meds, slowly improving, remains confused presumed TEJAL/OHS -required intubation in ED for critical illness, metabolic acidosis, airway protection -nocturnal Bipap NSTEMI - had ischemic appearing EKG changes in ED and HS-trop 600s so taken to field laboratory operator by Dr. Dick - no occlusions, suspected to be caused by small vessel disease Hypertension -continue high dose statin, metoprolol, aspirin. stopped heparin, replaced with apixaban -ordered po amlodipine, metoprolol Paroxysmal afib - had rapid AF earlier in hospital course, treated with amiodar one IV, discontinued -currently NSR, ordered oral metoprolol -resumed apixaban R foot 1st MT Acute Osteomyelitis /History of OM R Foot with Previous Amputations (Dec-Feb 2024): - cont vancomycin & zosyn -Culture right foot showing gram-positive cocci on Gram stain and low counts mixed probable skin microbiota - Podiatry consulted and first metatarsal head of r foot is likely osteomyelitic, recommending wound care and deferring imaging and surgical management until patient becomes more stable unless needed sooner. DVT ppx - SCD, heparin drip --> apixaban Admission and Anticipated Discharge Date Admission Date: May 23, 2024 Subjective Awake but lethargic Gives one word answers follows basic commands +dyspnea no CP, has some dyspepsia abdomen not tender Physical Exam Physical Exam: PHYSICAL EXAMINATION Last 24h vital signs reviewed, see documentation in flowsheet General: awake in ICU bed HEENT: dry MM Lungs: mildly increased WOB scattered coarse BS anteriorly and crackles Heart: irreg no mrg Abdomen: sntnd +BT Extremities: w/wp 2+ edema of LEs Neuro: awake, confused, Oxself, speech intact, moves 4 ext purposefully Psych: Normal affect and behavior Results & Data Results & Data Vital Signs (Past 12 Hours) Vital Signs Pulse Resp Pulse Ox FiO2 05/28/24 11:23 58 L 19 99 30 PG Care Time/CCT Total # of Minutes Spent Total Time Spent with Patient: Total time spent is greater than 50% in coordination of care (as documented) at patient's floor/unit and/or counseling patient: Coding Level of Care Code 80766 SUB INP/OBS CARE 3/50MIN Diagnoses Metabolic encephalopathy G93.41 DKA (diabetic ketoacidosis) E11.10 Diabetes mellitus type: type 2 Influenza A J10.1 Acute kidney injury N17.9 Primary hypertension I10 Hypertension type: primary hypertension Acute osteomyelitis of toe of right foot M86.171 Laterality: right (2) DKA (diabetic ketoacidosis) Diabetes mellitus type: type 2 (5) Hypertension Hypertension type: primary hypertension Qualified Code(s): I10 - Essential (primary) hypertension (6) Acute osteomyelitis of toe Laterality: right Qualified Code(s): M86.171 - Other acute osteomyelitis, right ankle and foot
[2024-05-28] MEDS ORDERED: LANTUS PER UNIT CHARGE SC SCH (21:00)
[2024-05-29 05:41] LABS: Basophils # (auto) 0.01 K/uL (0.00-0.20); Basophils % (auto) 0.1 %; Eosinophils # (auto) 0.26 K/uL (0.00-0.50); Eosinophils % (auto) 3.2 %; Hematocrit (blood only) 28.5 % (37.0-47.0); Hemoglobin 9.3 g/dl (12.0-16.0); Lymphocytes # (auto) 0.87 K/uL (1.20-3.40); Lymphocytes % (auto) 10.8 %; Mean Corpuscular Hemoglobin 27.3 pg (25.0-34.0); Mean Corpuscular Hgb Conc 32.6 g/dL (32.0-36.0); Mean Corpuscular Volume 83.6 fL (80.0-100.0); Monocytes # (auto) 1.45 K/uL (0.11-0.59); Monocytes % (auto) 17.9 %; Neutrophils # (auto) 5.09 K/uL (1.40-6.50); Platelet Count 192 K/uL (130-400); RDW Coefficient of Variation 14.5 % (11.5-14.5); RDW Standard Deviation 44.3 fL (36.4-46.3); Red Blood Count 3.41 M/uL (4.20-5.40); White Blood Count 8.08 K/ul (4.8-10.8)
[2024-05-29 05:54] LABS: Albumin Globulin Ratio 0.8 (0.9-2); Albumin Level 2.2 gm/dl (3.4-5.0); BUN Creatinine Ratio 21.5 (10-20); Bilirubin,Total 0.4 mg/dl (0.2-1.0); Calcium 7.5 mg/dl (8.6-10.3); Creatinine Clr Calc Pharmacy 42.8 ml/min; Globulin 2.9 gm/dl (2.5-4.0); Magnesium 1.6 mg/dl (1.7-2.4); Potassium 3.4 mmol/L (3.5-5.1); Total Protein 5.1 gm/dl (6.0-8.3)
[2024-05-29] MEDS: FUROSEMIDE 40 MG/4 ML VIAL IV ONE (11:24)
[2024-05-29] MEDS: MAGNESIUM SULFATE / D5W 1 GM/100 ML BAG IV SCH (11:24)
[2024-05-29] MEDS: POTASSIUM CHLORIDE CRTAB 20 MEQ TABCR PO SCH (13:12)
--- NOTE | 2024-05-29 15:18 | Hospitalist Progress Note ---
Date of Service May 29, 2024 Assessment & Plan (1) Metabolic encephalopathy: (2) DKA (diabetic ketoacidosis): (3) Influenza A: (4) Acute kidney injury: (5) Hypertension: (6) Acute osteomyelitis of toe: Plan Ms. Hay is a 64F with uncontrolled T2DM on Insulin with Neuropathy, PAD, and HTN who was admitted critically ill with influenza A, MRSA pneumonia, septic shock, DKA, and NSTEMI. She immmediately went to labor relations consultant due to elevated troponins and inferior wall EKG changes. No PCI indicated and findings compatible with NSTEMI caused by small vessel disease 05/29 she remains severely ill but definitely has improved since yesterday especially with respect to her volume status and her mental status, her lung exam has cleared significantly with diuresis breathing is nonlabored and she is more alert though still confused septic shock due to influenza A and MRSA pneumonia, present on admission, resolved continue to treat MRSA pneumonia with IV vancomycin chest CT films from 05/27 shows multifocal bilateral pneumonia that is fairly severe, small bilateral pleural effusions DKA was treated with IV fluids and IV insulin and has resolved, continue treatment for uncontrolled type 2 diabetes. A1c 11.2 glargine held for hypoglycemia, controlled with some low normals past 24h on PRN aspart -advance diet as tolerated -consult environmental educator Thursday acute pulmonary edema - volume overloaded on exam 05/28 and BNP>1000 -big improvement with lasix 40 mg IV yesterday - repeat same dose today -BUN/Cr unchanged, replacing mild hypokalemia of 3.4 with po and hypomag of 1.6 with 3g IV -AM BMP, mag acute kidney injury - admission creatinine was in the threes baseline is <1. slitting machine operator consulted, she does have diabetic kidney disease, creatinine has been improving nicely - Cr stable at 1.49 - gilliam out soon, AM BMP acute metabolic encephalopathy - improved and no longer lethargic, still some confusion and forgetfulness but now oriented to hospital, [place] presumed TEJAL/OHS -required intubation in ED for critical illness, metabolic acidosis, airway protection -continue pm bipap Aspergillus in sputum - unclear significance, may be colonizer since she continues to improve without treatment, reviewed CT which has no clear evidence of fungal infection, serum aspergillus Ag and B-D-glucan pending, ID following NSTEMI - had ischemic appearing EKG changes in ED and HS-trop 600s so taken to labor relations consultant by Dr. Dick - no occlusions, suspected to be caused by small vessel disease Hypertension -continue high dose statin, metoprolol, aspirin - try to continue with PPI IV bid has black stools -continue amlodipine, increasing metoprolol - hr in 60s, will increase slightly Melena, probable slow GI bleeding - Hg stable, esophagitis on CT chest, continue IV PPI bid, monitor Hg. Heparin drip was stopped AM 05/27, try to continue aspirin -still had melena stool this AM -Hg unchanged from 2-3 days ago at 9.3 -consult GI if nonresolving by tomorrow Paroxysmal afib - had rapid AF earlier in hospital course, treated with amiodarone IV, discontinued. Reviewed tele - has been in NSR x days -currently NSR, continue metoprolol - increase dose -apixaban held because of GI bleeding R foot 1st MT Acute Osteomyelitis /History of OM R Foot with Previous Amputations (Dec-Feb 2024): - cont vancomycin & zosyn -Culture right foot showing gram-positive cocci on Gram stain and low counts mixed probable skin microbiota - Podiatry consulted and first metatarsal head of r foot is likely osteomyelitic, recommending wound care and deferring imaging and surgical management until patient becomes more stable unless needed sooner. T2-[address] chest - ddx is degenerative disease or resolved OM, possible to be active OM - does not seem to have back pain - assess further once more alert and mobile - continue antibiotics for now - MRI if Tspine pain DVT ppx - SCD, AC held ongoing melena Updated at bedside 05/29 Admission and Anticipated Discharge Date Admission Date: May 23, 2024 Physical Exam 2 Physical Exam: PHYSICAL EXAMINATION Last 24h vital signs reviewed, see documentation in flowsheet General: awake in ICU bed HEENT: dry MM Lungs: mildly increased WOB scattered coarse BS anteriorly and crackles Heart: irreg no mrg Abdomen: sntnd +BT Extremities: w/wp 2+ edema of LEs Neuro: awake, confused, Oxself, speech intact, moves 4 ext purposefully Psych: Normal affect and behavior Results & Data Results & Data Vital Signs (Past 12 Hours) Vital Signs Temp Pulse Pulse Resp BP BP Pulse Ox 05/29/24 13:52 64 05/29/24 11:08 37.2 C 65 20 153/79 H 98 05/29/24 08:54 61 05/29/24 08:00 05/29/24 07:31 36.9 C 65 20 174/82 H 93 05/29/24 04:06 60 18 98 05/29/24 04:00 150/65 H 05/29/24 04:00 36.8 C 05/29/24 03:57 59 L 17 98 O2 Del Method O2 Flow Rate FiO2 05/29/24 13:52 05/29/24 11:08 Nasal Cannula 2.0 05/29/24 08:54 05/29/24 08:00 Nasal Cannula 2 05/29/24 07:31 Nasal Cannula 2.0 05/29/24 04:06 30 05/29/24 04:00 05/29/24 04:00 05/29/24 03:57 Laboratory Results 05/29/24 05:11 05/29/24 05:11 PG Care Time/CCT Total # of Minutes Spent Total Time Spent with Patient: Total time spent is greater than 50% in coordination of care (as documented) at patient's floor/unit and/or counseling patient: Coding Level of Care Code 74636 SUB INP/OBS CARE 3/50MIN Diagnoses Metabolic encephalopathy G93.41 DKA (diabetic ketoacidosis) E11.10 Diabetes mellitus type: type 2 Influenza A J10.1 Acute kidney injury N17.9 Primary hypertension I10 Hypertension type: primary hypertension Acute osteomyelitis of toe of right foot M86.171 Laterality: right (2) DKA (diabetic ketoacidosis) Diabetes mellitus type: type 2 (5) Hypertension Hypertension type: primary hypertension Qualified Code(s): I10 - Essential (primary) hypertension (6) Acute osteomyelitis of toe Laterality: right Qualified Code(s): M86.171 - Other acute osteomyelitis, right ankle and foot
[2024-05-30 08:31] LABS: Basophils # (auto) 0.02 K/uL (0.00-0.20); Basophils % (auto) 0.2 %; Eosinophils # (auto) 0.29 K/uL (0.00-0.50); Immature Granulocytes # (auto) 0.22 K/uL (0.01-0.20); Immature Granulocytes % (auto) 2.3 %; Lymphocytes # (auto) 1.02 K/uL (1.20-3.40); Lymphocytes % (auto) 10.7 %; Mean Corpuscular Hemoglobin 27.1 pg (25.0-34.0); Mean Corpuscular Hgb Conc 32.3 g/dL (32.0-36.0); Mean Platelet Volume 11.4 fL (9.4-12.4); Monocytes # (auto) 1.04 K/uL (0.11-0.59); Monocytes % (auto) 10.9 %; Neutrophils # (auto) 6.98 K/uL (1.40-6.50); Neutrophils % (auto) 72.9 %; Platelet Count 253 K/uL (130-400); RDW Coefficient of Variation 13.9 % (11.5-14.5); RDW Standard Deviation 42.8 fL (36.4-46.3); Red Blood Count 3.69 M/uL (4.20-5.40); White Blood Count 9.57 K/ul (4.8-10.8)
[2024-05-30 08:51] LABS: Albumin Globulin Ratio 0.8 (0.9-2); Albumin Level 2.4 gm/dl (3.4-5.0); BUN Creatinine Ratio 16.7 (10-20); Bilirubin,Total 0.4 mg/dl (0.2-1.0); Calcium 7.7 mg/dl (8.6-10.3); Creatinine Clr Calc Pharmacy 40.7 ml/min; Potassium 3.9 mmol/L (3.5-5.1); Total Protein 5.4 gm/dl (6.0-8.3)
--- NOTE | 2024-05-30 09:18 | Infectious Disease Progress Nt ---
Date of Service May 30, 2024 Assessment & Plan (1) Influenza A: (2) Acute osteomyelitis of toe: (3) MRSA pneumonia: Plan 64yo F with uncontrolled T2DM on insulin with neuropathy, PAD, HTN, R second toe osteomyelitis s/p resection (02/25/24) who presented on 05/23 with AMS, cough, and congestion. Found to be in DKA with acute renal failure, influenza A and MRSA pneumonia. Was intubated on arrival and started initially on Zosyn. Vancomycin added 05/24 when sputum culture grew MRSA. Extubated 05/25. Podiatry consulted on 05/25 for R foot wound--noted plantar first metatarsal head ulcer with extension directly dorsal at level of MTPJ, with scant purulent drainage, no ascending ce llulitis. XR R foot showed possible early osteomyelitis in the distal medial aspect of the first metatarsal. Wound culture growing low counts of mixed probable skin microbiota. Podiatry recommending MRI when stable and may consider surgical intervention this week. ID consulted because 05/23 sputum culture now growing Aspergillus in addition to MRSA. Pt currently on 2 L NC, fever curve improving, leukocytosis resolved. Unclear significance of Aspergillus in respiratory culture, as pt is clinically improving. CT chest with extensive airspace opacities throughout the lungs, including multifocal consolidation and GGO, findings favor multifocal pneumonia; no CT evidence for a fungal infection; interstitial pulmonary edema; findings of esophagitis; T2-T3 irregularity favoring degenerative process or remote sequela of discitis/OM. BDG and GM pending. Unclear significance of Aspergillus in respiratory culture, as pt is clinically improving and this could likely represent colonization. CT chest findings noted. She does not have any complaints particularly back pain given T spine findings, BCx were negative. # Influenza A # MRSA pneumonia # Aspergillus in respiratory culture # R first metatarsal osteomyelitis # JOLENE # T2DM # h/o R second toe osteomyelitis s/p resection (02/25/24) - f/u serum Aspergillus Ag and beta D glucan - continue vancomycin for MRSA pneumonia as well as coverage of OM (started 05/24) - continue pip-tazo in setting of R foot wound with osteomyelitis (started 05/23) - If pt goes to the OR, please send tissue/bone for culture, and proximal margin for pathology Will continue to follow. If questions or concerns, contact via [facility] or Infectious Disease Call Center . Briseida Hoover MD [facility], Division of Infectious Diseases Admission and Anticipated Discharge Date Admission Date: May 23, 2024 Subjective Subsequent visit was provided via telemedicine using two-way real-time interactive telecommunication between the patient and the telemedicine provider. For the duration of the visit, the provider was performing the assessment from a different facility than the patient. This includesuse of bluetooth stethoscope forauscultationperformed by the telepresenter that the telemedicine provider can hear if described in the physical exam. Curtain Cutter contact information: Please call [facility] [phone]. (Phone Number For Physician Use Only) After establishing a telemedicine visit, patient was: Patient was verified with two unique identifiers, Patient/authorized rep acknowledged consent and understanding and Gave permission to continue telehealth session Time Spent with Patient: Subsequent => 35 min Patient without complaints this morning. No pain, diarrhea. Physical Exam Physical Exam: General: Awake, alert, no acute distress HEENT: NC/AT, EOMI, mmm Neck: supple Lungs: respirations non-labored Heart: nl peripheral perfusion Abdomen: soft, NT/ND Ext: right foot without redness, no drainage, wound noted on base of great toe Skin: no rash Results & Data Vital Signs (Past 12 Hours) Vital Signs Temp Pulse Pulse Resp BP Pulse Ox O2 Del Method 05/30/24 07:20 36.9 C 64 150/65 H 96 Nasal Cannula 05/30/24 03:49 36.3 C L 59 L 20 131/72 98 BiPAP 05/30/24 03:45 57 L 20 97 05/30/24 00:00 61 05/29/24 23:21 60 17 99 05/29/24 22:50 36.8 C 64 18 152/72 H 97 Nasal Cannula O2 Flow Rate 05/30/24 07:20 2 05/30/24 03:49 05/30/24 03:45 2 05/30/24 00:00 05/29/24 23:21 2 05/29/24 22:50 2 Laboratory Results Labs reviewed. Diagnostic Findings Imaging reviewed. (2) Acute osteomyelitis of toe Laterality: right Qualified Code(s): M86.171 - Other acute osteomyelitis, right ankle and foot
[2024-05-30] MEDS: LANTUS PER UNIT CHARGE SC SCH (10:00)
--- NOTE | 2024-05-30 11:07 | Pharmacy Report ---
Pharmacy PK ABX Note - Date of Service May 30, 2024 - Assessment and Plan Assessment 05/29: * Day #7 of Vancomycin + Zosyn. ID recommends continuing both abx for foot wound and MRSA in sputum. * Remains afebrile. No leukocytosis. SCr trending up (1.34 --> 1.49 --> 1.56 mg/dL today). Continue to monitor. * Random vancomycin level today was therapeutic. 05/28: * Day #5 of vancomycin + zosyn. MRSA in sputum. ID recommends continuing Vancomycin and uncertain of significance of Aspergillus in sputum, ordering more fungal tests. Also recommend continuing Zosyn for foot wound. * SCr continues to improve, 1.34 mg/dL this AM. * Will schedule vanc dosing today. 05/27: * Day #4 vancomycin + zosyn. 05/23 sputum culture (+) MRSA and Aspergillus spp. Surface foot culture (-). ID consulted. SCr improving (3.87-->1.47mg/dl today) 05/26: * 64 year old F receiving VANCOMYCIN + ZOSYN for treatment of CAP as well as recent h/o R foot osteo. * Pertinent microbiologic data includes: Negative MRSA Nasal Swab; + MRSA growing in sputum cx (vent suction cx); blood and urine cx's no growth to date; surface wound cx obtained from R foot (however these are not reliable for identification of infecting organism). Foot Xray read as possible early osteo. Prior foot cx's had growing GBS, finegoldia, gemella and strep intermedius. Podiatry has been consulted. Possible MRI at a later date when more stable Plan Vancomycin * Current regimen: 1000 mg IV every 18 hours * Random level obtained 05/30/24 resulted as 19.2 mcg/mL. This is predicted to achieve target AUC/YANETH of 400-600 mg/L.hr * Predicted AUC at steady state: 538 mg/L.hr * Continue 1000 mg IV every 18 hours * Repeat random level ordered for: 06/02/24 Zosyn * 4.5 g IV every 8 hours Pharmacy will continue to follow and will adjust dose/frequency as necessary. Thank you. Pharmacy has transitioned to AUC monitoring for vancomycin. AUC/YANETH is the preferred PK/PD target and is associated with decreased risk of nephrotoxicity compared to traditional trough targets.
--- NOTE | 2024-05-30 11:10 | Pharmacy Report ---
Pharmacy Glycemic Short Note 2 - Date of Service May 30, 2024 - Glycemic Short BSG Results (Last 24 hours): 05/29/24 05/29/24 05/29/24 11:21 16:20 20:38 Glucose POC Glucose 129 H 239 H 327 H* 05/29/24 05/29/24 05/30/24 20:39 20:42 07:19 Glucose POC Glucose 275 H 267 H 121 H 05/30/24 08:08 Glucose 132 H POC Glucose OUTPATIENT ANTIDIABETIC REGIMEN: * empagliflozin 25mg PO daily * Lantus 23 units SQ BID (vs. 46 units daily) * Novolog TIDM HbA1C: 11.2% 05/24/24 (est avg BSG ~275mg/dL) ASSESSMENT: 05/30: * Monie received 20 units of insulin yesterday, 8 of which were basal. BSGs were: 11-276-837-267 mg/dL. * Fasting BSGs have been on the lower side, 121 mg/dL this AM. Believe large basal doses from previous days may have been contributing to this. Will schedule BID basal insulin today at a lower dose. * Postprandials have been trending up throughout the day. Tightened goal range as well as correction factor and carb ratio this AM. Patient starting to tolerate diet better. 05/27: * BSGs [phone]/dL the last 24h. Received 60 units of basal and 19 units of bolus insulin yesterday. * Was NPO into this AM, diet now advanced. Continues on antibiotics, heparin and amiodarone infusions. * Lantus dose decreased this AM to 20 units given NPO status. Plan for HS scale 20-30 units depending on BSG. Novolog ACHS 07/09. 05/26 * Patient was extubated yesterday * Pressors have been weaned off * Patient remains NPO * 73 units SQ insulin given over last 24 hrs with majority of BSGs 200-250mg/dL * Will continue to up-titrate basal insulin dose, cautiously however given ongoing NPO status. Q 4 hr Novolog with more aggressive correction will be used for next 24 hrs 05/25 * Patient remains intubated this AM, however sedation being held in anticipation of possible extubation later today * Pressor support continues but has been weaned (phenylephrine at 0.2mcg/kg/min) * Pt did experience a fib yesterday evening leading to initiation of amiodarone and heparin gtts (both mixed in D5W) * BSGs in 200s this AM, acceptable per current plan of care. * Per discussion at multidisciplinary rounds, pt will be transitioned off the IV insulin infusion this AM. Insulin drip running 2.6-4.4units/hr over last 12 hrs with higher rates coinciding with addition of D5W containing IV meds. Will escalate Lantus and Novolog doses to "high" stress dosing based upon weight given current insulin needs. 3/4 * Patient remains intubated and sedated this AM. * Pressor support continues (phenylephrine @1.5mcg/kg/min) * BSGs have trending down into the 300s this AM and AG acidosis has resolved (AG = 8 and Bicarb 21) * Renal fxn improving, SCr decreasing and UOP increasing * Patient discussed on multidisciplinary rounds this AM. Patient will continue on IV insulin infusion at this time, however will add some basal insulin today as this will make transition to SQ regimen easier in the near future. Per [employer], BSGs in 200s acceptable for this patient given A1c and BSGs on presentation. Nutrition to begin today, [employer] currently working up a plan. Dextrose containing IVFs will not be utilized given addition of nutrition. May need to add dextrose to maint IVFs if BSGs do fall unexpectedly. PLAN FOR INPATIENT GLYCEMIC CONTROL: * Hold outpatient oral diabetes medications * Basal insulin * Lantus 8 units SC BID * Bolus insulin * Novolog SQ ACHS * Goal range: 110 - 140 mg/dL * Correction factor: 15 mg/dL/unit * Nutritional / Prandial insulin per carb ratio of 1 unit per 6 grams CHO
--- NOTE | 2024-05-30 16:17 | Hospitalist Progress Note ---
Date of Service May 30, 2024 Assessment & Plan (1) Metabolic encephalopathy: (2) DKA (diabetic ketoacidosis): (3) Influenza A: (4) Acute kidney injury: (5) Hypertension: (6) Acute osteomyelitis of toe: Plan Ms. Hay is a 64F with uncontrolled T2DM on Insulin with Neuropathy, PAD, and HTN who was admitted critically ill with influenza A, MRSA pneumonia, septic shock, DKA, and NSTEMI. She immmediately went to labor law professor due to elevated troponins and inferior wall EKG changes. No PCI indicated and findings compatible with NSTEMI caused by small vessel disease 05/30 she is improving, more alert and oriented, eating and up in chair - ready for transfer to medical unit septic shock due to influenza A and MRSA pneumonia, present on admission, resolved continue to treat MRSA pneumonia with IV vancomycin - reviewed ID recs chest CT films from 05/27 shows multifocal bilateral pneumonia that is fairly severe, small bilateral pleural effusions DKA was treated with IV fluids and IV insulin and has resolved, continue treatment for uncontrolled type 2 diabetes. A1c 11.2 BG controlled with some lability past 24h on PRN aspart. may be able to add back glargine tomorrow -consult development educator - mentation may have improved enough by tomorrow. entered consult acute pulmonary edema - volume overloaded on exam 05/28 and BNP>1000 -big improvement with lasix 40 mg IV 05/28, 05/29 -BUN/Cr inflected upward to 26/1.56, stop active diuresis and resume oral lasix acute kidney injury - admission creatinine was in the threes baseline is <1. thin film technician consulted, she does have diabetic kidney disease, creatinine has been improving nicely - Cr stable at 1.56 - d/c'dfoley -AMBMP acute metabolic encephalopathy - improving, now conversational possible TEJAL/OHS? She does not have diagnosis of this, does not use CPAP -required intubation in ED for critical illness, metabolic acidosis, airway protection -consider overnight oximetry when improved from pneumonia Aspergillus in sputum - unclear significance, may be colonizer since she continues to improve without treatment, reviewed CT which has no clear evidence of fungal infection, serum aspergillus Ag and B-D-glucan pending, ID following NSTEMI - had ischemic appearing EKG changes in ED and HS-trop 600s so taken to labor law professor by Dr. Kapil - no occlusions, suspected to be caused by small vessel disease Hypertension -continue high dose statin, metoprolol, aspirin -continue amlodipine, increasing metoprolol - hr in 60s, will increase slightly Melena, slow GI bleeding probably from esophagitis 05/27-05/29 - started while on heparin drip. Hg stable, esophagitis on CT chest, treated with IV PPI bid, seems to have resolved -bid PPI po - Hg stable at 10, at usual baseline chronic anemia -outpatient gastroenterology follow up Paroxysmal afib - had rapid AF earlier in hospital course, treated with amiodarone IV, discontinued. Reviewed tele - has been in NSR x days -currently NSR, continue metoprolol - increase dose -apixaban held because of GI bleeding - having brown stool consider restarting soon R foot 1st MT Acute Osteomyelitis /History of OM R Foot with Previous Amputations (Dec-Feb 2024): - cont vancomycin & zosyn -Culture right foot showing gram-positive cocci on Gram stain and low counts mixed probable skin microbiota - Podiatry consulted and first metatarsal head of r foot is likely osteomyelitic, recommending wound care and deferring imaging and surgical management until patient becomes more stable unless needed sooner - still not good enough for surgery, though improving T2-[address] chest - ddx is degenerative disease or resolved OM, possible to be active OM - does not seem to have back pain - MRI if Tspine pain DVT ppx - SCD, AC held ongoing melena Updated at bedside 05/29 Admission and Anticipated Discharge Date Admission Date: May 23, 2024 Subjective she is sitting up in the chair for lunch for the first time, she is more alert and conversational, she really cannot remember our conversation of yesterday about why she is in the hospital she does have some cough denies shortness of breath, leg swelling is way down, no further melena stools Physical Exam 2 Physical Exam: PHYSICAL EXAMINATION Last 24h vital signs reviewed, see documentation in flowsheet General: sitting up in the chair eating lunch HEENT: moist mucous membranes Lungs: normal work of breathing scattered coarse crackles throughout all lung childress Heart: reg no mrg Abdomen: sntnd +BT Extremities: w/wp 1+ edema of LEs - improved Neuro: awake, Ox self, hospital, basic situation, speech intact, moves 4 ext purposefully Psych: Normal affect and behavior Results & Data Results & Data Vital Signs (Past 12 Hours) Vital Signs Temp Pulse Pulse Resp BP Pulse Ox O2 Del Method 05/30/24 15:56 36.8 C 66 10 L 143/73 H 95 Nasal Cannula 05/30/24 15:34 62 05/30/24 10:49 36.9 C 65 19 133/74 97 Nasal Cannula 05/30/24 08:00 55 L 05/30/24 08:00 Nasal Cannula 05/30/24 07:20 36.9 C 64 150/65 H 96 Nasal Cannula O2 Flow Rate 05/30/24 15:56 05/30/24 15:34 05/30/24 10:49 2 05/30/24 08:00 05/30/24 08:00 2 05/30/24 07:20 2 Laboratory Results 05/30/24 08:08 05/30/24 08:08 PG Care Time/CCT Total # of Minutes Spent Total Time Spent with Patient: Total time spent is greater than 50% in coordination of care (as documented) at patient's floor/unit and/or counseling patient: Coding Level of Care Code 65333 SUB INP/OBS CARE 3/50MIN Diagnoses Metabolic encephalopathy G93.41 DKA (diabetic ketoacidosis) E11.10 Diabetes mellitus type: type 2 Influenza A J10.1 Acute kidney injury N17.9 Primary hypertension I10 Hypertension type: primary hypertension Acute osteomyelitis of toe of right foot M86.171 Laterality: right (2) DKA (diabetic ketoacidosis) Diabetes mellitus type: type 2 (5) Hypertension Hypertension type: primary hypertension Qualified Code(s): I10 - Essential (primary) hypertension (6) Acute osteomyelitis of toe Laterality: right Qualified Code(s): M86.171 - Other acute osteomyelitis, right ankle and foot
[2024-05-30] MEDS: PANTOprazole 40 MG TAB PO SCH (20:39)
--- NOTE | 2024-05-30 20:41 | Podiatry Progress Note ---
Date of Service May 30, 2024 Assessment & Plan (1) Osteomyelitis of right foot: (2) Uncontrolled type 2 diabetes mellitus with hyperglycemia: (3) Acute osteomyelitis of toe: Plan Patient was examined and evaluated. - Her continued improvement is encouring since last week. - Edema improved and pulses palpable today. Should benefit and heal from surgery for the first ray, though not as infected today. May be able to salvage great toe.. - MR imaging ordered; will review when available for surgical planning. - Surgical intervention later in the week, pending these results. Admission and Anticipated Discharge Date Admission Date: May 23, 2024 Subjective Patient seen at bedside at lunch. Denies any new concerns and is more oriented, alert, awake than last week. Doing well with chalo, ANAID at bedside. No new concerns. No systemic symptoms of infection. Review of Systems Review of Systems: All systems reviewed & are unremarkable except as noted in HPI & below Constitutional: no fever, no chills and no fatigue Eyes: no problem reported Ear, Nose, Mouth, Throat: no problem reported Respiratory: no problem reported Cardiovascular: + edema; no problem reported Gastrointestinal: no nausea, no vomiting and no problem reported Genitourinary: no problem reported Musculoskeletal: no problem reported Integumentary: + skin ulcer, + wounds and + erythema Neurologic: + loss of sensation, + numbness and + pa resthesia; no generalized weakness Psychiatric: no problem reported Physical Exam Physical Exam: Lower extremity focused exam: DP/PT pulses palpable, lower extremity edema improved. Advanced trophic changes noted, otherwise, including skin atrophy, distal cooling, decreased hair growth, nail dystrophy. CFT brisk to digits. Right third toe amputation well healed, as is right second toe hammer toe repair/bone biopsy incision. Now, plantar first metatarsal head hyperkeratotic skin lesion is ulcerated with extension noted directly dorsal at the level of the MTPJ. There is scant purulent drainage and is dryer today than on clinical images viewed yesterday. No ascending cellulitis noted. Constitutional: well developed, + obese, + mechanically ventilated and + edematous Neck: trachea midline, no thyromegaly Cardiovascular: Rate/Rhythm: regular rate Extremities: normal capillary refill, + pedal edema and + edema Skin: + turgor decreased, + ulcer, + skin tigh tening, + wound, + skin atrophy and + erythema; nails not dystrophic Psychiatric: Orientation: + not alert Results & Data Results & Data Vital Signs (Past 12 Hours) Vital Signs Temp Pulse Pulse Resp BP Pulse Ox O2 Del Method 05/30/24 17:41 68 05/30/24 16:28 Nasal Cannula 05/30/24 15:56 36.8 C 66 10 L 143/73 H 95 Nasal Cannula 05/30/24 15:34 62 05/30/24 10:49 36.9 C 65 19 133/74 97 Nasal Cannula O2 Flow Rate 05/30/24 17:41 05/30/24 16:28 2 05/30/24 15:56 05/30/24 15:34 05/30/24 10:49 2 (1) Osteomyelitis of right foot Osteomyelitis type: other acute Qualified Code(s): M86.171 - Other acute osteomyelitis, right ankle and foot (3) Acute osteomyelitis of toe Laterality: right Qualified Code(s): M86.171 - Other acute osteomyelitis, right ankle and foot
--- NOTE | 2024-05-31 00:17 | Magnetic Resonance Report ---
Exam(s): MRI RIGHT FOOT Without Contrast EXAM: MR Right Lower Extremity Without Intravenous Contrast, Foot CLINICAL HISTORY: Reason for exam: right foot osteomyelitis. TECHNIQUE: Multiplanar magnetic resonance images of the right foot without intravenous contrast. COMPARISON: X-rays dated 05/24/2024 FINDINGS: There is soft tissue edema and swelling. No discrete fluid collection is seen. Noted has been amputation of the third digit. There is been amputation of the distal aspect of the second proximal phalanx. No evidence of acute fracture or dislocation. There are areas of bone marrow edema involving the first through fourth metatarsals and the fourth proximal phalanx. IMPRESSION: There is soft tissue edema and swelling. No discrete fluid collection is seen. Noted has been amputation of the third digit. There are areas of bone marrow edema involving the first through fourth metatarsals and the fourth proximal phalanx. These may represent sites of osteomyelitis. For further evaluation, consider correlation with a contrast-enhanced MRI or three-phase bone scan. Electronically signed by: Grzegorz May MD 05/31/24 00:16 AM
[2024-05-31 06:32] LABS: Basophils # (auto) 0.02 K/uL (0.00-0.20); Basophils % (auto) 0.2 %; Eosinophils # (auto) 0.31 K/uL (0.00-0.50); Hematocrit (blood only) 31.7 % (37.0-47.0); Hemoglobin 10.1 g/dl (12.0-16.0); Immature Granulocytes # (auto) 0.18 K/uL (0.01-0.20); Immature Granulocytes % (auto) 1.8 %; Lymphocytes % (auto) 12.8 %; Mean Corpuscular Hemoglobin 26.6 pg (25.0-34.0); Mean Corpuscular Hgb Conc 31.9 g/dL (32.0-36.0); Mean Corpuscular Volume 83.6 fL (80.0-100.0); Mean Platelet Volume 11.3 fL (9.4-12.4); Monocytes # (auto) 1.05 K/uL (0.11-0.59); Monocytes % (auto) 10.3 %; Neutrophils # (auto) 7.31 K/uL (1.40-6.50); Neutrophils % (auto) 71.9 %; Platelet Count 314 K/uL (130-400); RDW Coefficient of Variation 13.6 % (11.5-14.5); RDW Standard Deviation 41.7 fL (36.4-46.3); Red Blood Count 3.79 M/uL (4.20-5.40); White Blood Count 10.17 K/ul (4.8-10.8)
[2024-05-31 06:53] LABS: Albumin Globulin Ratio 0.8 (0.9-2); Albumin Level 2.4 gm/dl (3.4-5.0); BUN Creatinine Ratio 15.7 (10-20); Bilirubin,Total 0.4 mg/dl (0.2-1.0); Creatinine Clr Calc Pharmacy 47.2 ml/min; Globulin 2.9 gm/dl (2.5-4.0); Potassium 3.2 mmol/L (3.5-5.1); Total Protein 5.3 gm/dl (6.0-8.3)
[2024-05-31] MEDS: POLYETHYLENE (MIRALAX) 17 GM PACK PO SCH (10:25)
--- NOTE | 2024-05-31 12:16 | Hospitalist Progress Note ---
Date of Service May 31, 2024 Assessment & Plan (1) Metabolic encephalopathy: (2) DKA (diabetic ketoacidosis): (3) Influenza A: (4) Acute kidney injury: (5) Hypertension: (6) Acute osteomyelitis of toe: Plan Ms. Hay is a 64F with uncontrolled T2DM on Insulin with Neuropathy, PAD, and HTN who was admitted critically ill with influenza A, MRSA pneumonia, septic shock, DKA, and NSTEMI. She immmediately went to chemical laboratory chief due to elevated troponins and inferior wall EKG changes. No PCI indicated and findings compatible with NSTEMI caused by small vessel disease Hypoglycemia Experienced an episode of hypoglycemia, blood glucose was 54 Glargine 8 units BID has been discontinued Receck blood glucose after hypoglycemia protocol Septic shock, present on admission Now resolved septic shock due to influenza A and MRSA pneumonia, continue to treat MRSA pneumonia with IV vancomycin - reviewed ID recs chest CT films from 05/27 shows multifocal bilateral pneumonia that is fairly severe, small bilateral pleural effusions DKA Now resolved, anion gap has closed HbA1c 11.2 Blood glucoe is labile, experienced hypoglycemia today -consult medical educator acute pulmonary edema due to volume overload, BNP>1000 Improvement following diuresis with Lasix Continie PO lasix acute kidney injury fly worker consulted, she does have diabetic kidney disease, creatinine has been improving nicely -Avoid nephrotoxics - d/c'dfoley -AMBMP acute metabolic encephalopathy - improving, now conversational, but still confused, says she does not know why she was brought to the hopsital continue to re orient Aspergillus in sputum - unclear significance, may be colonizer since she continues to improve without treatment, reviewed CT which has no clear evidence of fungal infection, serum aspergillus Ag and B-D-glucan pending, ID following NSTEMI - had ischemic appearing EKG changes in ED and HS-trop 600s so taken to chemical laboratory chief by Dr. Dick - no occlusions, suspected to be caused by small vessel disease Hypertension -continue high dose statin, metoprolol, aspirin -continue amlodipine, increasing metoprolol - hr in 60s, will increase slightly Melena, slow GI bleeding -bid PPI po - Hg stable at 10, at usual baseline chronic anemia -outpatient gastroenterology follow up Paroxysmal afib - had rapid AF earlier in hospital course, treated with amiodarone IV, discontinued. Reviewed tele - has been in NSR x days -currently NSR, continue metoprolol - increase dose -apixaban held because of GI bleeding - having brown stool consider restarting soon R foot 1st MT Acute Osteomyelitis /History of OM R Foot with Previous Amputations (Dec-Feb 2024): - cont vancomycin & zosyn -Culture right foot showing gram-positive cocci on Gram stain and low counts mixed probable skin microbiota - Podiatry consulted and first metatarsal head of r foot is likely osteomyelitic given MRI imaging, Patient may need surgery soon per Podiatry T2-[address] chest - ddx is degenerative disease or resolved OM, possible to be active OM - does not seem to have back pain - MRI if Tspine pain DVT ppx - SCD, AC held ongoing melena Disposition: Awaiting PT eval, may need rehab Admission and Anticipated Discharge Date Admission Date: May 23, 2024 Results & Data Results & Data Vital Signs (Past 12 Hours) Vital Signs Temp Pulse Pulse Resp BP BP Pulse Ox 05/31/24 11:26 97.9 F 58 L 18 179/83 H 96 05/31/24 08:15 05/31/24 07:36 98.1 F 59 L 18 182/83 H 95 05/31/24 07:00 62 05/31/24 03:23 97.7 F 62 18 143/79 H 95 O2 Del Method O2 Flow Rate 05/31/24 11:26 Nasal Cannula 2 05/31/24 08:15 Nasal Cannula 3 05/31/24 07:36 Nasal Cannula 2 05/31/24 07:00 05/31/24 03:23 Nasal Cannula 2 PG Care Time/CCT Total # of Minutes Spent Total Time Spent with Patient: Total time spent is greater than 50% in coordination of care (as documented) at patient's floor/unit and/or counseling patient: Coding Level of Care Code 00692 SUB INP/OBS CARE 2/35MIN Diagnoses Metabolic encephalopathy G93.41 DKA (diabetic ketoacidosis) E11.10 Diabetes mellitus type: type 2 Influenza A J10.1 Acute kidney injury N17.9 Primary hypertension I10 Hypertension type: primary hypertension Acute osteomyelitis of toe of right foot M86.171 Laterality: right Time Spent (min) 35 (2) DKA (diabetic ketoacidosis) Diabetes mellitus type: type 2 (5) Hypertension Hypertension type: primary hypertension Qualified Code(s): I10 - Essential (primary) hypertension (6) Acute osteomyelitis of toe Laterality: right Qualified Code(s): M86.171 - Other acute osteomyelitis, right ankle and foot
[2024-05-31] MEDS: POTASSIUM CHLORIDE CRTAB 20 MEQ TABCR PO STA (12:22)
--- NOTE | 2024-05-31 14:09 | Podiatry Progress Note ---
Date of Service May 31, 2024 Assessment & Plan (1) Osteomyelitis of right foot: (2) Uncontrolled type 2 diabetes mellitus with hyperglycemia: (3) Acute osteomyelitis of toe: Plan Patient was examined and evaluated. - Her continued improvement is encouring since last week. - Edema improved and pulses palpable today. - Ulceration remains improved, cellulitis improved. MRI encouraging. - Will avoid first ray resection for now. Can plan bedside debridement in next day or two, but no aggressive surgery warranted. - Would recommend antibiosis for cellulitis/SSTI rather than osteomyelitis - Will place order for wound care nursing team to evaluate, as well. - Could d/c on our end with outpatient wound care for the right foot. Admission and Anticipated Discharge Date Admission Date: May 23, 2024 Subjective Patient seen at bedside at lunch. Denies any new concerns and is more oriented, alert, awake than last week. Doing well, eating lunch, healthy appetite. No new concerns. Had MRI yesterday. No systemic symptoms of infection. Review of Systems Constitutional: no fever, no chills and no fatigue Eyes: no problem reported Ear, Nose, Mouth, Throat: no problem reported Respiratory: no problem reported Cardiovascular: + edema; no problem reported Gastrointestinal: no nausea, no vomiting and no problem reported Genitourinary: no problem reported Musculoskeletal: no problem reported Integumentary: + skin ulcer, + wounds and + erythema Neurologic: + loss of sensation, + numbness and + pa resthesia; no generalized weakness Psychiatric: no problem reported Physical Exam Physical Exam: MRI reveals no specific findings of osteomyelitis underlying the ulceration. No identifiable abscess or fluid collection. Diffuse bone marrow edema noted to the metatarsals, likely secondary to neuropathy rather than specific infectious process. Lower extremity focused exam: DP/PT pulses palpable, lower extremity edema improved. Advanced trophic changes noted, otherwise, including skin atrophy, distal cooling, decreased hair growth, nail dystrophy. CFT brisk to digits. Right third toe amputation well healed, as is right second toe hammer toe repair/bone biopsy incision. Now, plantar first metatarsal head hyperkeratotic skin lesion is ulcerated with extension noted directly dorsal at the level of the MTPJ. There is scant purulent drainage and is dryer today than on clinical images viewed yesterday. No ascending cellulitis noted. Constitutional: well developed, + obese, + mechanically ventilated and + edematous Neck: trachea midline, no thyromegaly Cardiovascular: Rate/Rhythm: regular rate Extremities: normal capillary refill, + pedal edema and + edema Skin: + turgor decreased, + ulcer, + skin tigh tening, + wound, + skin atrophy and + erythema; nails not dystrophic Psychiatric: Orientation: + not alert Results & Data Results & Data Vital Signs (Past 12 Hours) Vital Signs Temp Pulse Pulse Resp BP BP Pulse Ox 05/31/24 11:26 36.6 C 58 L 18 179/83 H 96 05/31/24 08:15 05/31/24 07:36 36.7 C 59 L 18 182/83 H 95 05/31/24 07:00 62 05/31/24 03:23 36.5 C 62 18 143/79 H 95 O2 Del Method O2 Flow Rate 05/31/24 11:26 Nasal Cannula 2 05/31/24 08:15 Nasal Cannula 2 05/31/24 07:36 Nasal Cannula 2 05/31/24 07:00 05/31/24 03:23 Nasal Cannula 2 (1) Osteomyelitis of right foot Osteomyelitis type: other acute Qualified Code(s): M86.171 - Other acute osteomyelitis, right ankle and foot (3) Acute osteomyelitis of toe Laterality: right Qualified Code(s): M86.171 - Other acute osteomyelitis, right ankle and foot
[2024-05-31 19:46] LABS: Fungitell (1-3)-B-D-Glucan <31 pg/mL
[2024-05-31] MEDS: LANTUS PER UNIT CHARGE SC SCH (20:58)
[2024-06-01 06:51] LABS: Basophils # (auto) 0.02 K/uL (0.00-0.20); Basophils % (auto) 0.2 %; Eosinophils % (auto) 2.8 %; Hematocrit (blood only) 29.6 % (37.0-47.0); Hemoglobin 9.5 g/dl (12.0-16.0); Immature Granulocytes # (auto) 0.09 K/uL (0.01-0.20); Immature Granulocytes % (auto) 0.8 %; Lymphocytes # (auto) 1.16 K/uL (1.20-3.40); Lymphocytes % (auto) 10.8 %; Mean Corpuscular Hemoglobin 27.2 pg (25.0-34.0); Mean Corpuscular Hgb Conc 32.1 g/dL (32.0-36.0); Mean Corpuscular Volume 84.8 fL (80.0-100.0); Mean Platelet Volume 10.9 fL (9.4-12.4); Monocytes # (auto) 0.75 K/uL (0.11-0.59); Neutrophils # (auto) 8.45 K/uL (1.40-6.50); Neutrophils % (auto) 78.4 %; Platelet Count 335 K/uL (130-400); RDW Coefficient of Variation 13.5 % (11.5-14.5); RDW Standard Deviation 41.4 fL (36.4-46.3); Red Blood Count 3.49 M/uL (4.20-5.40); White Blood Count 10.77 K/ul (4.8-10.8)
[2024-06-01 07:36] LABS: Albumin Globulin Ratio 0.9 (0.9-2); Albumin Level 2.3 gm/dl (3.4-5.0); BUN Creatinine Ratio 13.6 (10-20); Bilirubin,Total 0.4 mg/dl (0.2-1.0); Creatinine Clr Calc Pharmacy 50.5 ml/min; Globulin 2.7 gm/dl (2.5-4.0); Potassium 3.7 mmol/L (3.5-5.1)
--- NOTE | 2024-06-01 10:49 | Infectious Disease Progress Nt ---
Date of Service June 01, 2024 Assessment & Plan (1) Influenza A: (2) Acute osteomyelitis of toe: (3) MRSA pneumonia: Plan 64yo F with uncontrolled T2DM on insulin with neuropathy, PAD, HTN, R second toe osteomyelitis s/p resection (02/25/24) who presented on 05/23 with AMS, cough, and congestion. Found to be in DKA with acute renal failure, influenza A and MRSA pneumonia. Was intubated on arrival and started initially on Zosyn. Vancomycin added 05/24 when sputum culture grew MRSA. Extubated 05/25. Podiatry consulted on 05/25 for R foot wound--noted plantar first metatarsal head ulcer with extension directly dorsal at level of MTPJ, with scant purulent drainage, no ascending ce llulitis. XR R foot showed possible early osteomyelitis in the distal medial aspect of the first metatarsal. Wound culture growing low counts of mixed probable skin microbiota. Podiatry recommending MRI when stable and may consider surgical intervention this week. ID consulted because 05/23 sputum culture now growing Aspergillus in addition to MRSA. Pt currently on 2 L NC, fever curve improving, leukocytosis resolved. Unclear significance of Aspergillus in respiratory culture, as pt is clinically improving. CT chest with extensive airspace opacities throughout the lungs, including multifocal consolidation and GGO, findings favor multifocal pneumonia; no CT evidence for a fungal infection; interstitial pulmonary edema; findings of esophagitis; T2-T3 irregularity favoring degenerative process or remote sequela of discitis/OM. BDG negative, GM pending. No spinal tenderness or back pain, BCX ngtd. MRI right foot with areas of bone marrow edema involving the first through fourth metatarsals and the fourth proximal phalanx. These may represent sites of osteomyelitis. For further evaluation, consider correlation with a contrast-enhanced MRI or three-phase bone scan. Regarding Aspergillus in respiratory culture, this may likely represent colonization as pt is clinically improving. Aspergillus antigen is in process. Regarding right foot, I spoke to podiatry and they think the MRI findings may more be related to stress reaction/overuse with neuropathy based on distribution of marrow edema which is more uniform and location of her wound which is superficial just over the 1st MTPJ. Therefore, plan to complete antibiotics today for SSTI (day 10) and monitor closely. If there are any new concerns off antibiotics, then would pursue bone biopsy and management of OM. # Influenza A # MRSA pneumonia # Aspergillus in respiratory culture # R first metatarsal wound # Bone marrow edema of 1-4 MTs # JOLENE # T2DM # h/o R second toe osteomyelitis s/p resection (02/25/24) - f/u serum Aspergillus Ag - complete vancomycin and zosyn today and then stop (day ~10) will have treated PNA and R foot SSTI - closely monitor off abx - if she develops any new signs of infection of the right foot while off of antibiotics, then would pursue bone biopsy Briseida Hoover MD [facility], Division of Infectious Diseases [facility]: [phone] Admission and Anticipated Discharge Date Admission Date: May 23, 2024 Subjective Subsequent visit was provided via telemedicine using two-way real-time interactive telecommunication between the patient and the telemedicine provider. For the duration of the visit, the provider was performing the assessment from a different facility than the patient. This includesuse of bluetooth stethoscope forauscultationperformed by the telepresenter that the telemedicine provider can hear if described in the physical exam. [employer] contact information: Please call [facility] Call Center [phone]. (Phone Number For Physician Use Only) After establishing a telemedicine visit, patient was: Patient was verified with two unique identifiers, Patient/authorized rep acknowledged consent and understanding and Gave permission to continue telehealth session Time Spent with Patient: Subsequent => 35 min Patient doing well. No pain, SOB, or diarrhea. Physical Exam Physical Exam: General: Awake, alert, no acute distress HEENT: NC/AT, EOMI, mmm Neck: supple Lungs: respirations non-labored Heart: nl peripheral perfusion Abdomen: soft, NT/ND Ext: right foot without redness, serous drainage, wound noted on base of great toe Skin: no rash Results & Data Vital Signs (Past 12 Hours) Vital Signs Temp Pulse Pulse Resp BP BP Pulse Ox 06/01/24 07:42 36.6 C 66 16 156/72 H 91 06/01/24 07:00 64 06/01/24 03:41 36.8 C 66 18 135/72 92 05/31/24 23:00 68 O2 Del Method O2 Flow Rate 06/01/24 07:42 Nasal Cannula 2 06/01/24 07:00 06/01/24 03:41 Room Air 05/31/24 23:00 Laboratory Results Labs reviewed. Diagnostic Findings Imaging reviewed. (2) Acute osteomyelitis of toe Laterality: right Qualified Code(s): M86.171 - Other acute osteomyelitis, right ankle and foot
--- NOTE | 2024-06-01 11:57 | Hospitalist Progress Note ---
Date of Service June 01, 2024 Assessment & Plan (1) Metabolic encephalopathy: (2) DKA (diabetic ketoacidosis): (3) Influenza A: (4) Acute kidney injury: (5) Hypertension: (6) Acute osteomyelitis of toe: Plan Ms. Hay is a 64F with uncontrolled T2DM on Insulin with Neuropathy, PAD, and HTN who was admitted critically ill with influenza A, MRSA pneumonia, septic shock, DKA, and NSTEMI. She immmediately went to laboratory tester due to elevated troponins and inferior wall EKG changes. No PCI indicated and findings compatible with NSTEMI caused by small vessel disease Hypoglycemia Experienced an episode of hypoglycemia, blood glucose was 54 Glargine 8 units BID has been discontinued Receck blood glucose after hypoglycemia protocol Septic shock, present on admission Now resolved septic shock due to influenza A and MRSA pneumonia, continue to treat MRSA pneumonia with IV vancomycin - reviewed ID recs chest CT films from 05/27 shows multifocal bilateral pneumonia that is fairly severe, small bilateral pleural effusions DKA Now resolved, anion gap has closed HbA1c 11.2 Blood glucoe is labile, experienced hypoglycemia today -consult unit educator acute pulmonary edema due to volume overload, BNP>1000 Improvement following diuresis with Lasix Continie PO lasix acute kidney injury molding manager consulted, she does have diabetic kidney disease, creatinine has been improving nicely -Avoid nephrotoxics - d/c'dfoley -AMBMP acute metabolic encephalopathy - improving, now conversational, but still confused, says she does not know why she was brought to the hopsital continue to re orient Aspergillus in sputum - unclear significance, may be colonizer since she continues to improve without treatment, reviewed CT which has no clear evidence of fungal infection, serum aspergillus Ag and B-D-glucan pending, ID following NSTEMI - had ischemic appearing EKG changes in ED and HS-trop 600s so taken to laboratory tester by Dr. Dick - no occlusions, suspected to be caused by small vessel disease Hypertension -continue high dose statin, metoprolol, aspirin -continue amlodipine, increasing metoprolol - hr in 60s, will increase slightly Melena, slow GI bleeding -bid PPI po - Hg stable at 10, at usual baseline chronic anemia -outpatient gastroenterology follow up Paroxysmal afib - had rapid AF earlier in hospital course, treated with amiodarone IV, discontinued. Reviewed tele - has been in NSR x days -currently NSR, continue metoprolol - increase dose -apixaban held because of GI bleeding - having brown stool consider restarting soon R foot 1st MT Acute Osteomyelitis /History of OM R Foot with Previous Amputations (Dec-Feb 2024): -Culture right foot showing gram-positive cocci on Gram stain and low counts mixed probable skin microbiota - Podiatry consulted and first metatarsal head of r foot is likely osteomyelitic given MRI imaging, -Hoever,odiatry and infectious diseases both in agreement that the MRI image may be due to stress reaction and not necessarily due to osteomyelitis. -Per infectious disease, will complete 10-day course of vancomycin and Zosyn today. -If further concerns for infection, would then pursue bone biopsy. -Patient may need minor bedside debridement T2-[address] chest - ddx is degenerative disease or resolved OM, possible to be active OM - does not seem to have back pain - MRI if Tspine pain DVT ppx - SCD, AC held ongoing melena Disposition: Awaiting PT eval, may need rehab Admission and Anticipated Discharge Date Admission Date: May 23, 2024 Subjective Patient seen and examined today, says she feels overall better Review of Systems Review of Systems: As noted in subjective Physical Exam Physical Exam: The patient is awake, alert and oriented 3, well developed and well nourished, normocephalic and atraumatic, lying in bed and in no acute distress. HEENT--PERRL, EOMI, mucous membranes and oropharynx mildly dry Neck--supple. No JVD. No bruits. Thyroid normal, trachea midline, no adenopathy. Heart--normal S1 and S2. No murmurs, rubs or gallops. Lungs--clear bilaterally, no respiratory distress, no accessory muscle use. Abdomen--normal bowel sounds and soft. Extremities--no cyanosis or clubbing. No edema. Dermatologic--normal skin turgor, normal color, no abnormal lymph nodes, no rash. Neurologic--cranial nerves II through XII grossly intact. Rheumatologic--normal range of motion. Psychiatric--normal affect. Results & Data Results & Data Vital Signs (Past 12 Hours) Vital Signs Temp Pulse Pulse Resp BP BP Pulse Ox 06/01/24 07:42 97.9 F 66 16 156/72 H 91 06/01/24 07:00 64 06/01/24 03:41 98.2 F 66 18 135/72 92 O2 Del Method O2 Flow Rate 06/01/24 07:42 Nasal Cannula 2 06/01/24 07:00 06/01/24 03:41 Room Air PG Care Time/CCT Total # of Minutes Spent Total Time Spent with Patient: Total time spent is greater than 50% in coordination of care (as documented) at patient's floor/unit and/or counseling patient: Coding Level of Care Code 68042 SUB INP/OBS CARE 2/35MIN Diagnoses Metabolic encephalopathy G93.41 DKA (diabetic ketoacidosis) E11.10 Diabetes mellitus type: type 2 Influenza A J10.1 Acute kidney injury N17.9 Primary hypertension I10 Hypertension type: primary hypertension Acute osteomyelitis of toe of right foot M86.171 Laterality: right Time Spent (min) 35 (2) DKA (diabetic ketoacidosis) Diabetes mellitus type: type 2 (5) Hypertension Hypertension type: primary hypertension Qualified Code(s): I10 - Essential (primary) hypertension (6) Acute osteomyelitis of toe Laterality: right Qualified Code(s): M86.171 - Other acute osteomyelitis, right ankle and foot
[2024-06-01 18:24] LABS: Aspergillus Ag Index 0.12 (<0.50); Aspergillus Antigen, Serum Not Detected (Not Detected)
[2024-06-01] MEDS: LANTUS PER UNIT CHARGE SC SCH (20:29)
[2024-06-01] MEDS ORDERED: LANTUS PER UNIT CHARGE SC SCH (21:00)
--- NOTE | 2024-06-01 21:09 | Podiatry Progress Note ---
Date of Service June 01, 2024 Assessment & Plan (1) Osteomyelitis of right foot: (2) Uncontrolled type 2 diabetes mellitus with hyperglycemia: (3) Acute osteomyelitis of toe: Plan Patient was examined and evaluated. - Her continued improvement is encouring since last week. - Edema improved and pulses palpable today. - Ulceration remains improved, cellulitis improved. MRI encouraging. - Will avoid first ray resection for now. Bedside debridement performed today with simple instrument tray; no new deeper/infectious concerns. - D/w ID and will plan on treating as SSTI with completed oral antibiotic course. - Continue wound care and close monitoring. If wound fails to improve, will consider bone biopsy in the future, likely after this admission. - Can d/c to rehab at any point from our standpoint. Admission and Anticipated Discharge Date Admission Date: May 23, 2024 Subjective Patient seen and examined today, says she feels overall better. Seen with her , who I know from prior care. He states she is nowhere near baseline memory/recall. She is quiet and reserved compared to her typical behavior. No new concerns, however. Review of Systems Constitutional: no fever, no chills and no fatigue Eyes: no problem reported Ear, Nose, Mouth, Throat: no problem reported Respiratory: no problem reported Cardiovascular: + edema; no problem reported Gastrointestinal: no nausea, no vomiting and no problem reported Genitourinary: no problem reported Musculoskeletal: no problem reported Integumentary: + skin ulcer, + wounds and + erythema Neurologic: + loss of sensation, + numbness and + pa resthesia; no generalized weakness Psychiatric: no problem reported Physical Exam Physical Exam: MRI reveals no specific findings of osteomyelitis underlying the ulceration. No identifiable abscess or fluid collection. Diffuse bone marrow edema noted to the metatarsals, likely secondary to neuropathy rather than specific infectious process. Bedside debridement of superficial skin reveals no deep probing at this time. No palpable fluctuance, still Lower extremity focused exam: DP/PT pulses palpable, lower extremity edema improved. Advanced trophic changes noted, otherwise, including skin atrophy, distal cooling, decreased hair growth, nail dystrophy. CFT brisk to digits. Right third toe amputation well healed, as is right second toe hammer toe repair/bone biopsy incision. Now, plantar first metatarsal head hyperkeratotic skin lesion is ulcerated superficially, now appears separate from superficial dorsal blister. No drainage noted to dressing dated 05/29 and changed today. No ascending cellulitis noted. Constitutional: well developed, + obese, + mechanically ventilated and + edematous Neck: trachea midline, no thyromegaly Cardiovascular: Rate/Rhythm: regular rate Extremities: normal capillary refill, + pedal edema and + edema Skin: + turgor decreased, + ulcer, + skin tigh tening, + wound, + skin atrophy and + erythema; nails not dystrophic Psychiatric: Orientation: + not alert Results & Data Results & Data Vital Signs (Past 12 Hours) Vital Signs Temp Pulse Pulse Resp BP Pulse Ox O2 Del Method 06/01/24 20:05 37.1 C 72 18 155/74 H 95 Nasal Cannula 06/01/24 14:37 36.9 C 75 18 129/84 96 Nasal Cannula 06/01/24 14:00 74 06/01/24 13:28 37 C 75 18 139/70 92 Nasal Cannula O2 Flow Rate 06/01/24 20:05 2 06/01/24 14:37 2 06/01/24 14:00 06/01/24 13:28 2 (1) Osteomyelitis of right foot Osteomyelitis type: other acute Qualified Code(s): M86.171 - Other acute osteomyelitis, right ankle and foot (3) Acute osteomyelitis of toe Laterality: right Qualified Code(s): M86.171 - Other acute osteomyelitis, right ankle and foot
[2024-06-02 06:19] LABS: Hematocrit (blood only) 27.8 % (37.0-47.0); Hemoglobin 8.8 g/dl (12.0-16.0); Mean Corpuscular Hemoglobin 26.9 pg (25.0-34.0); Mean Corpuscular Hgb Conc 31.7 g/dL (32.0-36.0); Mean Platelet Volume 10.7 fL (9.4-12.4); Platelet Count 330 K/uL (130-400); RDW Coefficient of Variation 13.2 % (11.5-14.5); Red Blood Count 3.27 M/uL (4.20-5.40); White Blood Count 10.74 K/ul (4.8-10.8)
[2024-06-02 06:38] LABS: BUN Creatinine Ratio 10.8 (10-20); Creatinine Clr Calc Pharmacy 45.4 ml/min; Potassium 3.9 mmol/L (3.5-5.1)
--- NOTE | 2024-06-02 09:19 | Pharmacy Report ---
Pharmacy Glycemic Short Note 2 - Date of Service June 02, 2024 - Glycemic Short BSG Results (Last 24 hours): 06/01/24 06/01/24 06/01/24 12:22 16:50 20:10 Glucose POC Glucose 158 H 160 H 130 H 06/02/24 06/02/24 05:49 08:02 Glucose 190 H POC Glucose 197 H OUTPATIENT ANTIDIABETIC REGIMEN: * empagliflozin 25mg PO daily * Lantus 23 units SQ BID (vs. 46 units daily) * Novolog TIDM HbA1C: 11.2% 05/24/24 (est avg BSG ~275mg/dL) ASSESSMENT: 06/02: * Patient received a total of 14 units of insulin yesterday, all of which were bolus insulin. Her BSGs were [phone]/dL. * Fasting BSG this morning was 197mg/dL. Lantus was changed to a scale BID (0, 5, or 8 units depending on BSG). CR was also tightened starting with breakfast today. 05/30: * Monie received 20 units of insulin yesterday, 8 of which were basal. BSGs were: [phone] mg/dL. * Fasting BSGs have been on the lower side, 121 mg/dL this AM. Believe large basal doses from previous days may have been contributing to this. Will schedule BID basal insulin today at a lower dose. * Postprandials have been trending up throughout the day. Tightened goal range as well as correction factor and carb ratio this AM. Patient starting to tolerate diet better. 05/27: * BSGs [phone]/dL the last 24h. Received 60 units of basal and 19 units of bolus insulin yesterday. * Was NPO into this AM, diet now advanced. Continues on antibiotics, heparin and amiodarone infusions. * Lantus dose decreased this AM to 20 units given NPO status. Plan for HS scale 20-30 units depending on BSG. Novolog ACHS 07/09. 05/26 * Patient was extubated yesterday * Pressors have been weaned off * Patient remains NPO * 73 units SQ insulin given over last 24 hrs with majority of BSGs 200-250mg/dL * Will continue to up-titrate basal insulin dose, cautiously however given ongoing NPO status. Q 4 hr Novolog with more aggressive correction will be used for next 24 hrs 05/25 * Patient remains intubated this AM, however sedation being held in anticipation of possible extubation later today * Pressor support continues but has been weaned (phenylephrine at 0.2mcg/kg/min) * Pt did experience a fib yesterday evening leading to initiation of amiodarone and heparin gtts (both mixed in D5W) * BSGs in 200s this AM, acceptable per current plan of care. * Per discussion at multidisciplinary rounds, pt will be transitioned off the IV insulin infusion this AM. Insulin drip running 2.6-4.4units/hr over last 12 hrs with higher rates coinciding with addition of D5W containing IV meds. Will escalate Lantus and Novolog doses to "high" stress dosing based upon weight given current insulin needs. 05/24 * Patient remains intubated and sedated this AM. * Pressor support continues (phenylephrine @1.5mcg/kg/min) * BSGs have trending down into the 300s this AM and AG acidosis has resolved (AG = 8 and Bicarb 21) * Renal fxn improving, SCr decreasing and UOP increasing * Patient discussed on multidisciplinary rounds this AM. Patient will continue on IV insulin infusion at this time, however will add some basal insulin today as this will make transition to SQ regimen easier in the near future. Per Smoking Tobacco Cutter Operator, BSGs in 200s acceptable for this patient given A1c and BSGs on presentation. Nutrition to begin today, Roll Cutter currently working up a plan. Dextrose containing IVFs will not be utilized given addition of nutrition. May need to add dextrose to maint IVFs if BSGs do fall unexpectedly. PLAN FOR INPATIENT GLYCEMIC CONTROL: * Hold outpatient oral diabetes medications * Basal insulin * Lantus scale SC BID (hold for BSG < 140, 5 units for BSG 140-200, 8 units for BSG > 200) * Bolus insulin * Novolog SQ ACHS * Goal range: 110 - 140 mg/dL * Correction factor: 20 mg/dL/unit * Nutritional / Prandial insulin per carb ratio of 1 unit per 7 grams CHO
--- NOTE | 2024-06-02 10:49 | Infectious Disease Progress Nt ---
Date of Service June 02, 2024 Assessment & Plan (1) Influenza A: (2) MRSA pneumonia: (3) Wound of right foot: Plan 64yo F with uncontrolled T2DM on insulin with neuropathy, PAD, HTN, R second toe osteomyelitis s/p resection (02/25/24) who presented on 05/23 with AMS, cough, and congestion. Found to be in DKA with acute renal failure, influenza A and MRSA pneumonia. Was intubated on arrival and started initially on Zosyn. Vancomycin added 05/24 when sputum culture grew MRSA. Extubated 05/25. Podiatry consulted on 05/25 for R foot wound--noted plantar first metatarsal head ulcer with extension directly dorsal at level of MTPJ, with scant purulent drainage, no ascending cellulitis. XR R foot showed possible early osteomyelitis in the distal medial aspect of the first metatarsal. Wound culture growing low counts of mixed probable skin microbiota. Podiatry recommending MRI when stable and may consider surgical intervention this week. ID consulted because 05/23 sputum culture now growing Aspergillus in addition to MRSA. Pt currently on 2 L NC, fever curve improving, leukocytosis resolved. Unclear significance of Aspergillus in respiratory culture, as pt is clinically improving. CT chest with extensive airspace opacities throughout the lungs, including multifocal consolidation and GGO, findings favor multifocal pneumonia; no CT evidence for a fungal infection; interstitial pulmonary edema; findings of esophagitis; T2-T3 irregularity favoring degenerative process or remote sequela of discitis/OM. BDG negative, GM negative. No spinal tenderness or back pain, BCX ngtd. MRI right foot with areas of bone marrow edema involving the first through fourth metatarsals and the fourth proximal phalanx. These may represent sites of osteomyelitis. For further evaluation, consider correlation with a contrast-enhanced MRI or three- phase bone scan. Regarding Aspergillus in respiratory culture, this is likely colonization. Aspergillus antigen negative. Regarding right foot, I had spoken to podiatry yesterday and they think the MRI findings may more be related to stress reaction/overuse with neuropathy based on distribution of marrow edema (which is more uniform) and location of her wound (which is superficial just over the 1st MTPJ). Therefore, planned to complete an tibiotics (vanc/zosyn) for SSTI (day 10, done 06/02) and monitor closely. If there are any new concerns off antibiotics, then would pursue bone biopsy and management of OM. # Influenza A # MRSA pneumonia s/p abx # Aspergillus in respiratory culture, Aspergillus Ag negative # R first metatarsal wound/SSTI # Bone marrow edema of 1-4 MTs # JOLENE # T2DM # h/o R second toe osteomyelitis s/p resection (02/25/24) - s/p 10d of vancomycin and zosyn on 06/02 - monitor off abx - if she develops any new signs of infection of the right foot while off of antibiotics, then would pursue bone biopsy/culture (before resumption of antibiotics) Will discontinue active follow up at this time. Please do not hesitate to reconsult the Infectious Diseases service as needed. Briseida Hoover MD [facility], Division of Infectious Diseases [employer]: [phone] Admission and Anticipated Discharge Date Admission Date: May 23, 2024 Subjective This patient recommendation is based on a telemedicine consult request which was completed asynchronously through chart review and information provided by the primary physician. The patient was not seen or examined today. The evaluation is consultative in nature and all patient care and treatment decisions can either be accepted or rejected by the patient's primary hospital-based treating physician using their own independent medical judgment for their patient. Time Spent Reviewing Chart: 31+ minutes Patient not seen Results & Data Vital Signs (Past 12 Hours) Vital Signs Temp Pulse Pulse Resp BP BP Pulse Ox 06/02/24 07:30 36.8 C 66 18 168/75 H 92 06/02/24 07:19 61 06/02/24 03:45 36.8 C 69 18 162/69 H 95 06/02/24 00:08 37.1 C 75 18 131/71 94 O2 Del Method 06/02/24 07:30 Room Air 06/02/24 07:19 06/02/24 03:45 Room Air 06/02/24 00:08 Room Air Laboratory Results Labs reviewed. Diagnostic Findings Imaging reviewed.
--- NOTE | 2024-06-02 11:31 | Hospitalist Progress Note ---
Date of Service June 02, 2024 Assessment & Plan (1) Metabolic encephalopathy: (2) DKA (diabetic ketoacidosis): (3) Influenza A: (4) Acute kidney injury: (5) Hypertension: (6) Acute osteomyelitis of toe: Plan Ms. Hay is a 64F with uncontrolled T2DM on Insulin with Neuropathy, PAD, and HTN who was admitted critically ill with influenza A, MRSA pneumonia, septic shock, DKA, and NSTEMI. She immmediately went to laboratory equipment cleaner due to elevated troponins and inferior wall EKG changes. No PCI indicated and findings compatible with NSTEMI caused by small vessel disease Hypoglycemia resolved following hypoglycemia protocol Glargine 8 units BID has been discontinued, continue sliding scale insulin monitor blood glucose Septic shock, present on admission Now resolved septic shock due to influenza A and MRSA pneumonia, completed a course of antibiotics DKA Now resolved, anion gap has closed HbA1c 11.2 -consult clinical staff educator acute pulmonary edema due to volume overload, BNP>1000 Improvement following diuresis with Lasix Continie PO lasix acute kidney injury treatment supervisor consulted, she does have diabetic kidney disease, creatinine has been improving nicely -Avoid nephrotoxics - d/c'dfoley -AMBMP acute metabolic encephalopathy - Now resolved, patient at baseline Aspergillus in sputum - unclear significance, may be colonizer since she continues to improve without treatment, reviewed CT which has no clear evidence of fungal infection, NSTEMI - had ischemic appearing EKG changes in ED and HS-trop 600s so taken to laboratory equipment cleaner by Dr. Dick - no occlusions, suspected to be caused by small vessel disease Hypertension -continue high dose statin, metoprolol, aspirin -continue amlodipine, increasing metoprolol - hr in 60s, will increase slightly Melena, slow GI bleeding -bid PPI po - Hg stable at 10, at usual baseline chronic anemia -outpatient gastroenterology follow up Paroxysmal afib - had rapid AF earlier in hospital course, treated with amiodarone IV, discontinued. Reviewed tele - has been in NSR x days -currently NSR, continue metoprolol - increase dose -Apixaban held because of GI bleeding Resume after outpatient GI follow up R foot 1st MT Acute Osteomyelitis /History of OM R Foot with Previous Amputations (Dec-Feb 2024): -Culture right foot showing gram-positive cocci on Gram stain and low counts mixed probable skin microbiota - Podiatry consulted and first metatarsal head of r foot is likely osteomyelitic given MRI imaging, had minor bedside debridement -Hoever,odiatry and infectious diseases both in agreement that the MRI image may be due to stress reaction and not necessarily due to osteomyelitis. -Patient has completed a course of antibiotics -If further concerns for infection, would then pursue bone biopsy. T2-[address] chest - ddx is degenerative disease or resolved OM, possible to be active OM - does not seem to have back pain - MRI if Tspine pain DVT ppx - SCD, AC due to GI bleed Disposition:will need rehab Admission and Anticipated Discharge Date Admission Date: May 23, 2024 Subjective Patient seen and examined today, in high spirits, sitting up in the chair Review of Systems Review of Systems: All systems reviewed are negative, apart from the ones contained in the history. Physical Exam Physical Exam: The patient is awake, alert and oriented 3, well developed and well nourished, normocephalic and atraumatic, lying in bed and in no acute distress. HEENT--PERRL, EOMI, mucous membranes and oropharynx mildly dry Neck--supple. No JVD. No bruits. Thyroid normal, trachea midline, no adenopathy. Heart--normal S1 and S2. No murmurs, rubs or gallops. Lungs--clear bilaterally, no respiratory distress, no accessory muscle use. Abdomen--normal bowel sounds and soft. Extremities--no cyanosis or clubbing. No edema. Dermatologic--normal skin turgor, normal color, no abnormal lymph nodes, no rash. Neurologic--cranial nerves II through XII grossly intact. Rheumatologic--normal range of motion. Psychiatric--normal affect. Results & Data Results & Data Vital Signs (Past 12 Hours) Vital Signs Temp Pulse Pulse Resp BP BP Pulse Ox 06/02/24 11:00 98.4 F 70 18 167/81 H 97 06/02/24 07:30 98.2 F 66 18 168/75 H 92 06/02/24 07:19 61 06/02/24 03:45 98.2 F 69 18 162/69 H 95 06/02/24 00:08 98.8 F 75 18 131/71 94 O2 Del Method O2 Flow Rate 06/02/24 11:00 Nasal Cannula 2 06/02/24 07:30 Room Air 06/02/24 07:19 06/02/24 03:45 Room Air 06/02/24 00:08 Room Air PG Care Time/CCT Total # of Minutes Spent Total Time Spent with Patient: Total time spent is greater than 50% in coordination of care (as documented) at patient's floor/unit and/or counseling patient: Coding Level of Care Code 57478 SUB INP/OBS CARE 2/35MIN Diagnoses Metabolic encephalopathy G93.41 DKA (diabetic ketoacidosis) E11.10 Diabetes mellitus type: type 2 Influenza A J10.1 Acute kidney injury N17.9 Primary hypertension I10 Hypertension type: primary hypertension Acute osteomyelitis of toe of right foot M86.171 Laterality: right Time Spent (min) 35 (2) DKA (diabetic ketoacidosis) Diabetes mellitus type: type 2 (5) Hypertension Hypertension type: primary hypertension Qualified Code(s): I10 - Essential (primary) hypertension (6) Acute osteomyelitis of toe Laterality: right Qualified Code(s): M86.171 - Other acute osteomyelitis, right ankle and foot
[2024-06-03] MEDS: LANTUS PER UNIT CHARGE SC SCH ×2 (08:59→20:43)
--- NOTE | 2024-06-03 10:51 | Hospitalist Progress Note ---
Date of Service June 03, 2024 Assessment & Plan (1) Metabolic encephalopathy: (2) DKA (diabetic ketoacidosis): (3) Influenza A: (4) Acute kidney injury: (5) Hypertension: (6) Acute osteomyelitis of toe: Plan Ms. Hay is a 64F with uncontrolled T2DM on Insulin with Neuropathy, PAD, and HTN who was admitted critically ill with influenza A, MRSA pneumonia, septic shock, DKA, and NSTEMI. She immmediately went to quality assurance qa lab technician due to elevated troponins and inferior wall EKG changes. No PCI indicated and findings compatible with NSTEMI caused by small vessel disease Hypoglycemia resolved following hypoglycemia protocol Glargine 8 units BID has been discontinued, continue sliding scale insulin monitor blood glucose Septic shock, present on admission Now resolved septic shock due to influenza A and MRSA pneumonia, completed a course of antibiotics DKA Now resolved, anion gap has closed HbA1c 11.2 -consult critical care educator acute pulmonary edema due to volume overload, BNP>1000 Improvement following diuresis with Lasix Continie PO lasix acute kidney injury materials planning manager consulted, she does have diabetic kidney disease, creatinine has been improving nicely -Avoid nephrotoxics - d/c'dfoley -AMBMP acute metabolic encephalopathy - Now resolved, patient at baseline Aspergillus in sputum - Aspergillus antigen was negative NSTEMI - had ischemic appearing EKG changes in ED and HS-trop 600s so taken to quality assurance qa lab technician by Dr. Dick - no occlusions, suspected to be caused by small vessel disease Hypertension -continue high dose statin, metoprolol, aspirin -continue amlodipine, increasing metoprolol - hr in 60s, will increase slightly Melena, slow GI bleeding -bid PPI po - Hg stable , at usual baseline chronic anemia -outpatient gastroenterology follow up Paroxysmal afib - had rapid AF earlier in hospital course, treated with amiodarone IV, discontinued. Reviewed tele - has been in NSR x days -currently NSR, continue metoprolol - increase dose -Apixaban held because of GI bleeding Resume after outpatient GI follow up R foot 1st MT Acute Osteomyelitis /History of OM R Foot with Previous Amputations (Dec-Feb 2024): -Culture right foot showing gram-positive cocci on Gram stain and low counts mixed probable skin microbiota - Podiatry consulted and first metatarsal head of r foot is likely osteomyelitic given MRI imaging, had minor bedside debridement -Hoever,podiatry and infectious diseases both in agreement that the MRI image may be due to stress reaction and not necessarily due to osteomyelitis. -Patient has completed a course of antibiotics -If further concerns for infection, would then pursue bone biopsy. T2-[address] chest - ddx is degenerative disease or resolved OM, possible to be active OM - does not seem to have back pain - MRI if Tspine pain DVT ppx - SCD, AC due to GI bleed Disposition:medically stable for SNF, discharge when accepted Admission and Anticipated Discharge Date Admission Date: May 23, 2024 Subjective Patient seen and examined today, in high spirits, sitting up in the chair Review of Systems Review of Systems: All systems reviewed are negative, apart from the ones contained in the history. Physical Exam Physical Exam: The patient is awake, alert and oriented 3, well developed and well nourished, normocephalic and atraumatic, lying in bed and in no acute distress. HEENT--PERRL, EOMI, mucous membranes and oropharynx mildly dry Neck--supple. No JVD. No bruits. Thyroid normal, trachea midline, no adenopathy. Heart--normal S1 and S2. No murmurs, rubs or gallops. Lungs--clear bilaterally, no respiratory distress, no accessory muscle use. Abdomen--normal bowel sounds and soft. Extremities--no cyanosis or clubbing. No edema. Dermatologic--normal skin turgor, normal color, no abnormal lymph nodes, no rash. Neurologic--cranial nerves II through XII grossly intact. Rheumatologic--normal range of motion. Psychiatric--normal affect. Results & Data Results & Data Vital Signs (Past 12 Hours) Vital Signs Temp Pulse Pulse Pulse Resp BP Pulse Ox 06/03/24 08:26 98.1 F 75 14 160/76 H 92 06/03/24 08:15 06/03/24 07:00 71 06/03/24 03:47 99.0 F 75 18 158/67 H 90 O2 Del Method O2 Flow Rate 06/03/24 08:26 Nasal Cannula 2 06/03/24 08:15 Room Air 06/03/24 07:00 06/03/24 03:47 Room Air PG Care Time/CCT Total # of Minutes Spent Total Time Spent with Patient: Total time spent is greater than 50% in coordination of care (as documented) at patient's floor/unit and/or counseling patient: Coding Level of Care Code 92389 SUB INP/OBS CARE 235MIN Diagnoses Metabolic encephalopathy G93.41 DKA (diabetic ketoacidosis) E11.10 Diabetes mellitus type: type 2 Influenza A J10.1 Acute kidney injury N17.9 Primary hypertension I10 Hypertension type: primary hypertension Acute osteomyelitis of toe of right foot M86.171 Laterality: right Time Spent (min) 35 (2) DKA (diabetic ketoacidosis) Diabetes mellitus type: type 2 (5) Hypertension Hypertension type: primary hypertension Qualified Code(s): I10 - Essential (primary) hypertension (6) Acute osteomyelitis of toe Laterality: right Qualified Code(s): M86.171 - Other acute osteomyelitis, right ankle and foot
--- NOTE | 2024-06-03 13:50 | Pharmacy Report ---
Pharmacy Glycemic Short Note 2 - Date of Service June 03, 2024 - Glycemic Short BSG Results (Last 24 hours): 06/02/24 06/02/24 06/03/24 17:14 20:13 08:06 POC Glucose 156 H 184 H 243 H 06/03/24 12:17 POC Glucose 276 H OUTPATIENT ANTIDIABETIC REGIMEN: * Empagliflozin 25mg PO daily * Lantus 23 units SQ BID (vs. 46 units daily) * Novolog TIDM HbA1C: 11.2% 05/24/24 (est avg BSG ~275mg/dL) ASSESSMENT: 06/03/24: * Blood sugars elevated yesterday, ranging 156-249 mg/dL * Labile blood sugars in recent days likely due in part to vastly different basal doses day to day * Received 37 units of insulin (10 units of basal and 27 units of prandial/correctional bolus) * Blood sugars further elevated today, but will continue w/ current bolus parameters and make minor changes to basal dose given recent hypoglycemia 06/02: * Patient received a total of 14 units of insulin yesterday, all of which were bolus insulin. Her BSGs were 008-665-686-130mg/dL. * Fasting BSG this morning was 197mg/dL. Lantus was changed to a scale BID (0, 5, or 8 units depending on BSG). CR was also tightened starting with breakfast today. 05/30: * Monie received 20 units of insulin yesterday, 8 of which were basal. BSGs were: 83-716-533-267 mg/dL. * Fasting BSGs have been on the lower side, 121 mg/dL this AM. Believe large basal doses from previous days may have been contributing to this. Will sc hedule BID basal insulin today at a lower dose. * Postprandials have been trending up throughout the day. Tightened goal range as well as correction factor and carb ratio this AM. Patient starting to t olerate diet better. 05/26 * Patient was extubated yesterday * Pressors have been weaned off * Patient remains NPO * 73 units SQ insulin given over last 24 hrs with majority of BSGs 200-250mg/dL * Will continue to up-titrate basal insulin dose, cautiously however given ongoing NPO status. Q 4 hr Novolog with more aggressive correction will be used for next 24 hrs 05/25 * Patient remains intubated this AM, however sedation being held in anticipation of possible extubation later today * Pressor support continues but has been weaned (phenylephrine at 0.2mcg/kg/min) * Pt did experience a fib yesterday evening leading to initiation of amiodarone and heparin gtts (both mixed in D5W) * BSGs in 200s this AM, acceptable per current plan of care. * Per discussion at multidisciplinary rounds, pt will be transitioned off the IV insulin infusion this AM. Insulin drip running 2.6-4.4units/hr over last 12 hrs with higher rates coinciding with addition of D5W containing IV meds. Will escalate Lantus and Novolog doses to "high" stress dosing based upon weight given current insulin needs. 05/24 * Patient remains intubated and sedated this AM. * Pressor support continues (phenylephrine @1.5mcg/kg/min) * BSGs have trending down into the 300s this AM and AG acidosis has resolved (AG = 8 and Bicarb 21) * Renal fxn improving, SCr decreasing and UOP increasing * Patient discussed on multidisciplinary rounds this AM. Patient will continue on IV insulin infusion at this time, however will add some basal insulin today as this will make transition to SQ regimen easier in the near future. Per Equipment Oiler, BSGs in 200s acceptable for this patient given A1c and BSGs on presentation. Nutrition to begin today, Microchip Specialist currently working up a plan. Dextrose containing IVFs will not be utilized given addition of n utrition. May need to add dextrose to maint IVFs if BSGs do fall unexpectedly. PLAN FOR INPATIENT GLYCEMIC CONTROL: * Hold outpatient oral diabetes medications * Basal insulin * Lantus 10 units SC qAM * Lantus 0-5 units SC HS (see EHR for details) * Bolus insulin * Novolog SQ ACHS * Goal range: 110 - 140 mg/dL * Correction factor: 20 mg/dL/unit * Nutritional / Prandial insulin per carb ratio of 1 unit per 7 grams CHO
--- NOTE | 2024-06-04 09:36 | Hospitalist Progress Note ---
Date of Service June 04, 2024 Assessment & Plan (1) Metabolic encephalopathy: (2) DKA (diabetic ketoacidosis): (3) Influenza A: (4) Acute kidney injury: (5) Hypertension: (6) Acute osteomyelitis of toe: Plan Ms. Hay is a 64F with uncontrolled T2DM on Insulin with Neuropathy, PAD, and HTN who was admitted critically ill with influenza A, MRSA pneumonia, septic shock, DKA, and NSTEMI. She immmediately went to labor crew supervisor due to elevated troponins and inferior wall EKG changes. No PCI indicated and findings compatible with NSTEMI caused by small vessel disease Hypoglycemia resolved following hypoglycemia protocol Glargine 8 units BID has been discontinued, continue sliding scale insulin monitor blood glucose Septic shock, present on admission Now resolved septic shock due to influenza A and MRSA pneumonia, completed a course of antibiotics DKA Now resolved, anion gap has closed HbA1c 11.2 -consult ict educator acute pulmonary edema due to volume overload, BNP>1000 Improvement following diuresis with Lasix Continie PO lasix acute kidney injury welding instructor consulted, she does have diabetic kidney disease, creatinine has been improving nicely -Avoid nephrotoxics - d/c'dfoley -AMBMP acute metabolic encephalopathy - Now resolved, patient at baseline Aspergillus in sputum - Aspergillus antigen was negative NSTEMI - had ischemic appearing EKG changes in ED and HS-trop 600s so taken to labor crew supervisor by Dr. Dick - no occlusions, suspected to be caused by small vessel disease Hypertension -continue high dose statin, metoprolol, aspirin -continue amlodipine, increasing metoprolol - hr in 60s, will increase slightly Melena, slow GI bleeding -bid PPI po - Hg stable , at usual baseline chronic anemia -outpatient gastroenterology follow up Paroxysmal afib - had rapid AF earlier in hospital course, treated with amiodarone IV, discontinued. Reviewed tele - has been in NSR x days -currently NSR, continue metoprolol - increase dose -Apixaban held because of GI bleeding Resume after outpatient GI follow up R foot 1st MT Acute Osteomyelitis /History of OM R Foot with Previous Amputations (Dec-Feb 2024): -Culture right foot showing gram-positive cocci on Gram stain and low counts mixed probable skin microbiota - Podiatry consulted and first metatarsal head of r foot is likely osteomyelitic given MRI imaging, had minor bedside debridement -Hoever,podiatry and infectious diseases both in agreement that the MRI image may be due to stress reaction and not necessarily due to osteomyelitis. -Patient has completed a course of antibiotics -If further concerns for infection, would then pursue bone biopsy. T2-[address] chest - ddx is degenerative disease or resolved OM, possible to be active OM - does not seem to have back pain - MRI if Tspine pain DVT ppx - SCD, AC due to GI bleed Disposition:medically stable for SNF, discharge when accepted, has been accepted at [facility], pending bed availability Admission and Anticipated Discharge Date Admission Date: May 23, 2024 Subjective Patient seen and examined today, in high spirits, sitting up in the chair Review of Systems Review of Systems: All systems reviewed are negative, apart from the ones contained in the history. Physical Exam Physical Exam: The patient is awake, alert and oriented 3, well developed and well nourished, normocephalic and atraumatic, lying in bed and in no acute distress. HEENT--PERRL, EOMI, mucous membranes and oropharynx mildly dry Neck--supple. No JVD. No bruits. Thyroid normal, trachea midline, no adeno kyaw. Heart--normal S1 and S2. No murmurs, rubs or gallops. Lungs--clear bilaterally, no respiratory distress, no accessory muscle use. Abdomen--normal bowel sounds and soft. Extremities--no cyanosis or clubbing. No edema. Dermatologic--normal skin turgor, normal color, no abnormal lymph nodes, no rash. Neurologic--cranial nerves II through XII grossly intact. Rheumatologic--normal range of motion. Psychiatric--normal affect. Results & Data Results & Data Vital Signs (Past 12 Hours) Vital Signs Temp Pulse Pulse Resp BP Pulse Ox O2 Del Method 06/04/24 07:28 93 Room Air 06/04/24 07:27 Room Air 06/04/24 07:27 98.2 F 72 20 149/77 H 89 L Room Air 06/04/24 05:43 65 06/04/24 04:00 98.6 F 66 18 132/72 96 Room Air 06/03/24 23:21 98.6 F 68 18 131/77 95 Room Air 06/03/24 21:57 65 PG Care Time/CCT Total # of Minutes Spent Total Time Spent with Patient: Total time spent is greater than 50% in coordination of care (as documented) at patient's floor/unit and/or counseling patient: Coding Level of Care Code 65771 SUB INP/OBS CARE MIN Diagnoses Metabolic encephalopathy G93.41 DKA (diabetic ketoacidosis) E11.10 Diabetes mellitus type: type 2 Influenza A J10.1 Acute kidney injury N17.9 Primary hypertension I10 Hypertension type: primary hypertension Acute osteomyelitis of toe of right foot M86.171 Laterality: right Time Spent (min) 35 (2) DKA (diabetic ketoacidosis) Diabetes mellitus type: type 2 (5) Hypertension Hypertension type: primary hypertension Qualified Code(s): I10 - Essential (primary) hypertension (6) Acute osteomyelitis of toe Laterality: right Qualified Code(s): M86.171 - Other acute osteomyelitis, right ankle and foot
[2024-06-05 06:09] LABS: Hematocrit (blood only) 26.7 % (37.0-47.0); Hemoglobin 8.5 g/dl (12.0-16.0); Mean Corpuscular Hemoglobin 27.1 pg (25.0-34.0); Mean Corpuscular Hgb Conc 31.8 g/dL (32.0-36.0); Mean Platelet Volume 10.6 fL (9.4-12.4); Platelet Count 382 K/uL (130-400); RDW Coefficient of Variation 12.8 % (11.5-14.5); RDW Standard Deviation 38.9 fL (36.4-46.3); Red Blood Count 3.14 M/uL (4.20-5.40); White Blood Count 6.95 K/ul (4.8-10.8)
[2024-06-05 06:21] LABS: BUN Creatinine Ratio 17.9 (10-20); Calcium 8.1 mg/dl (8.6-10.3); Creatinine Clr Calc Pharmacy 51.5 ml/min; Potassium 3.8 mmol/L (3.5-5.1)
[2024-06-05] MEDS: LANTUS PER UNIT CHARGE SC SCH (08:37)
--- NOTE | 2024-06-05 10:22 | Hospitalist Progress Note ---
Date of Service June 05, 2024 Assessment & Plan (1) Metabolic encephalopathy: (2) DKA (diabetic ketoacidosis): (3) Influenza A: (4) Acute kidney injury: (5) Hypertension: (6) Acute osteomyelitis of toe: Plan Ms. Hay is a 64F with uncontrolled T2DM on Insulin with Neuropathy, PAD, and HTN who was admitted critically ill with influenza A, MRSA pneumonia, septic shock, DKA, and NSTEMI. She immmediately went to manager labor relations due to elevated troponins and inferior wall EKG changes. No PCI indicated and findings compatible with NSTEMI caused by small vessel disease Hypoglycemia resolved following hypoglycemia protocol Glargine 8 units BID has been discontinued, continue sliding scale insulin monitor blood glucose Septic shock, present on admission Now resolved septic shock due to influenza A and MRSA pneumonia, completed a course of antibiotics DKA Now resolved, anion gap has closed HbA1c 11.2 -consult automobile club travel counselor acute pulmonary edema due to volume overload, BNP>1000 Improvement following diuresis with Lasix Continie PO lasix acute kidney injury geospatial scientist consulted, she does have diabetic kidney disease, creatinine has been improving nicely -Avoid nephrotoxics - d/c'dfoley -AMBMP acute metabolic encephalopathy - Now resolved, patient at baseline Aspergillus in sputum - Aspergillus antigen was negative NSTEMI - had ischemic appearing EKG changes in ED and HS-trop 600s so taken to manager labor relations by Dr. Dick - no occlusions, suspected to be caused by small vessel disease Hypertension -continue high dose statin, metoprolol, aspirin -continue amlodipine, increasing metoprolol - hr in 60s, will increase slightly Melena, slow GI bleeding -bid PPI po - Hg stable , at usual baseline chronic anemia -outpatient gastroenterology follow up Paroxysmal afib - had rapid AF earlier in hospital course, treated with amiodarone IV, discontinued. Reviewed tele - has been in NSR x days -currently NSR, continue metoprolol - increase dose -Apixaban held because of GI bleeding Resume after outpatient GI follow up R foot 1st MT Acute Osteomyelitis /History of OM R Foot with Previous Amputations (Dec-Feb 2024): -Culture right foot showing gram-positive cocci on Gram stain and low counts mixed probable skin microbiota - Podiatry consulted and first metatarsal head of r foot is likely osteomyelitic given MRI imaging, had minor bedside debridement -Hoever,podiatry and infectious diseases both in agreement that the MRI image may be due to stress reaction and not necessarily due to osteomyelitis. -Patient has completed a course of antibiotics -If further concerns for infection, would then pursue bone biopsy. T2-[address] chest - ddx is degenerative disease or resolved OM, possible to be active OM - does not seem to have back pain - MRI if Tspine pain DVT ppx - SCD, AC due to GI bleed Disposition:medically stable for SNF, has been accepted at [facility], pending bed availability Admission and Anticipated Discharge Date Admission Date: May 23, 2024 Subjective Patient seen and examined today, in high spirits, sitting up in the chair, waiting placement Review of Systems Review of Systems: All systems reviewed are negative, apart from the ones contained in the history. Physical Exam Physical Exam: The patient is awake, alert and oriented 3, well developed and well nourished, normocephalic and atraumatic, lying in bed and in no acute distress. HEENT--PERRL, EOMI, mucous membranes and oropharynx mildly dry Neck--supple. No JVD. No bruits. Thyroid normal, trachea midline, no adenopathy. Heart--normal S1 and S2. No murmurs, rubs or gallops. Lungs--clear bilaterally, no respiratory distress, no accessory muscle use. Abdomen--normal bowel sounds and soft. Extremities--no cyanosis or clubbing. No edema. Dermatologic--normal skin turgor, normal color, no abnormal lymph nodes, no rash. Neurologic--cranial nerves II through XII grossly intact. Rheumatologic--normal range of motion. Psychiatric--normal affect. Results & Data Results & Data Vital Signs (Past 12 Hours) Vital Signs Temp Pulse Pulse Resp BP BP Pulse Ox 06/05/24 10:02 98.2 F 68 20 149/67 H 92 06/05/24 07:50 06/05/24 07:34 98.4 F 71 20 151/71 H 90 06/05/24 05:56 67 06/05/24 03:47 98.6 F 77 16 139/76 96 06/04/24 23:31 98.8 F 77 16 136/70 90 O2 Del Method 06/05/24 10:02 Room Air 06/05/24 07:50 Room Air 06/05/24 07:34 Room Air 06/05/24 05:56 06/05/24 03:47 Room Air 06/04/24 23:31 Room Air PG Care Time/CCT Total # of Minutes Spent Total Time Spent with Patient: Total time spent is greater than 50% in coordination of care (as documented) at patient's floor/unit and/or counseling patient: Coding Level of Care Code 81691 SUB INP/OBS CARE 2/35MIN Diagnoses Metabolic encephalopathy G93.41 DKA (diabetic ketoacidosis) E11.10 Diabetes mellitus type: type 2 Influenza A J10.1 Acute kidney injury N17.9 Primary hypertension I10 Hypertension type: primary hypertension Acute osteomyelitis of toe of right foot M86.171 Laterality: right Time Spent (min) 35 (2) DKA (diabetic ketoacidosis) Diabetes mellitus type: type 2 (5) Hypertension Hypertension type: primary hypertension Qualified Code(s): I10 - Essential (primary) hypertension (6) Acute osteomyelitis of toe Laterality: right Qualified Code(s): M86.171 - Other acute osteomyelitis, right ankle and foot
[2024-06-06] MEDS: CARBOHYDRATES FOR HYPOGLYCEMIA PO PRN (01:46)
[2024-06-06 07:51] VITALS: RESP 18
--- NOTE | 2024-06-06 09:25 | Pharmacy Report ---
Pharmacy Glycemic Short Note 2 - Date of Service June 06, 2024 - Glycemic Short BSG Results (Last 24 hours): 06/05/24 06/05/24 06/05/24 09:57 09:59 12:06 POC Glucose 312 H* 304 H* 236 H 06/05/24 06/05/24 06/06/24 17:11 20:34 01:42 POC Glucose 88 166 H 59 L* 06/06/24 06/06/24 06/06/24 02:02 02:21 08:08 POC Glucose 60 L* 76 243 H OUTPATIENT ANTIDIABETIC REGIMEN: * Empagliflozin 25 mg PO daily * Lantus 23 units SC BID * Novolog TIDM (CF 25, CR 10) HbA1c: 11.2% (05/24/24) ASSESSMENT: 06/06: * Received 61 units of insulin yesterday, 20 of which were basal. BSGs were 058-518-17-166 mg/dL. * Patient had hypoglycemic event overnight, BSG 59 mg/dL. Improved with 30 g of carbs. This likely led to fasting BSG elevation of 243 mg/dL. Will reduce basal dose today and only give in the AM, d/c HS basal scale. * Novolog parameters were tightened last evening but given hypoglycemia, will chose to loosen back to previous parameters today. Tolerating T2DM diet. 06/03: * Blood sugars elevated yesterday, ranging 156-249 mg/dL * Labile blood sugars in recent days likely due in part to vastly different basal doses day to day * Received 37 units of insulin (10 units of basal and 27 units of prandial/correctional bolus) * Blood sugars further elevated today, but will continue w/ current bolus parameters and make minor changes to basal dose given recent hypoglycemia 06/02: * Patient received a total of 14 units of insulin yesterday, all of which were bolus insulin. Her BSGs were [phone]/dL. * Fasting BSG this morning was 197mg/dL. Lantus was changed to a scale BID (0, 5, or 8 units depending on BSG). CR was also tightened starting with breakfast today. 05/30: * Monie received 20 units of insulin yesterday, 8 of which were basal. BSGs were: 26-486-434-267 mg/dL. * Fasting BSGs have been on the lower side, 121 mg/dL this AM. Believe large basal doses from previous days may have been contributing to this. Will schedule BID basal insulin today at a lower dose. * Postprandials have been trending up throughout the day. Tightened goal range as well as correction factor and carb ratio this AM. Patient starting to tolerate diet better. PLAN FOR INPATIENT GLYCEMIC CONTROL: * Hold outpatient oral diabetes medications * Basal insulin * Lantus 15 units SC AM * Bolus insulin * Novolog SQ ACHS * Goal range: 110 - 140 mg/dL * Correction factor: 20 mg/dL/unit * Nutritional / Prandial insulin per carb ratio of 1 unit per 7 grams CHO
--- NOTE | 2024-06-06 14:42 | Electrocardiogram Report ---
Test Reason : Blood Pressure : */* mmHG Vent. Rate : 67 BPM Atrial Rate : 67 BPM P-R Int : 234 ms QRS Dur : 100 ms QT Int : 396 ms P-R-T Axes : 53 -32 90 degrees QTcB Int : 418 ms Sinus rhythm with 1st degree A-V block Left axis deviation Nonspecific ST and T wave abnormality Poor R wave progression, consider anterior LA vs. lead placement vs. LVH Abnormal ECG When compared with ECG of 24-May-2024 18:14, Sinus rhythm has replaced Atrial fibrillation Vent. rate has decreased by 75 bpm Non-specific change in ST segment in Anterior leads Confirmed by Misael Rooney ([id number] on 06/06/2024 2:41:41 PM Referred By: REFERRED SELF Confirmed By: Misael Rooney
[2024-06-06 16:37] VITALS: BP 175/77; PULSE 71; TEMP 98.6; O2SAT 97
== END 2024-06-06 17:27 | DRG 871 ==
LOC: EDBD → ED 09:27 → MERGE 09:27 → SUATTDRO 10:57 → 1E 10:57 → 2E 05-29 06:51 → 2W 05-30 16:09
PROC: CLB.CCO (2024-05-23 10:45)

== ENCOUNTER 2025-02-04 15:14 | Inpatient (IN) ==
[2025-02-04] MEDS: OPTIRAY 320 125ml IV ONE (15:32)
--- NOTE | 2025-02-04 15:35 | Emergency Department Note ---
Impression & Plan Stroke, Sepsis, Leukocytosis, Acute hyponatremia, Acute hyperglycemia, Acute non-ST elevation myocardial infarction (NSTEMI) ED Provider Note ED Provider Note NAME: RAJ PARADA AGE:64 SEX: Female : 1960 ARRIVES VIA: POV INFORMANT: Patient ED PROVIDER(s): Leonidas Fan CHIEF COMPLAINT: Stroke like sx HPI: 64-year-old female presents emergency room with complaints of altered mental status. Patient reportedly was last known normal around 10 PM last night when she went to bed. She has a recent history of admission for sepsis when she had a toe removed with gangrene. Her is able to give this history. He states that this morning when she woke up she was confused. She woke up around 615 and was not really holding normal conversations with him. She was able to ambulate and perform tasks, but for example she had placed a bucket of chicken in his lunch pill instead of actually packing a lunch which very much confused him. PAST MEDICAL HISTORY:See Below PAST SURGICAL HISTORY:See Below FAMILY HISTORY:See Below SOCIAL HISTORY:See Below HOME MEDICATIONS:See Below ALLERGIES:See Below VITALS:See Below PHYSICAL EXAMINATION: GENERAL: alert, well appearing, well nourished, no distress, non-toxic EYE EXAM: normal conjunctiva, PERRL and EOM's grossly intact, Some difficulty evaluating visual childress due to patient's verbal difficulties. OROPHARYNX: no exudate, no erythema, lips, buccal mucosa, and tongue normal and mucous membranes are moist NECK: supple, no nuchal rigidity, no adenopathy, non-tender LUNGS: Clear to auscultation. Normal chest wall mechanics, no w/r/r HEART: no murmurs, S1 normal and S2 normal ABDOMEN: abdomen soft, non-tender, normo-active bowel sounds, no masses, no rebound or guarding. BACK: Back is symmetrical on inspection and there is no deformity, no midline tenderness, no CVA tenderness. SKIN: no rashes, petechiae, orbruising UPPER EXTREMITIES: upper extremities are grossly normal. FROM, nml pulses b/l. LOWER EXTREMITIES: No pitting edema. FROM, nml pulses b/l. NEURO EXAM: Normal sensorium, cranial nerves II-XII grossly intact, Speech is clear, but inappropriate answers, Does not follow commands, is able to climb on and off the table to CT to wheelchair without difficulty, no facial droop,nogross weakness of arms, no gross weakness of legs. Gross sensation intact. No ataxia. Vital Signs: reviewed and remarkable Differential Diagnosis: Infection, hypoglycemia, electrolyte abnormalities, overdose, toxicologic, cardiac sources, intracerebral event, neurologic, trauma, as well as other pathologies. MEDICAL DECISION MAKIN-year-old female presents the emergency room with complaints of altered mental status concern for possible stroke. CT showing right ICA about with collateral filling at the cavernous sinus, the bilateral M1 segments are patent. There does appear to be a left frontal and temporal portion that have changes, subacute versus acute. Patient's prior admission had been with metabolic encephalopathy and DKA. Patient's EKG concerning for STEMI. Spoke with cardiology, given no chest symptoms, they would go with a hospitalist admission and they would have no acute recommendations at this time given that she is not able to be anticoagulated secondary to acute stroke. Today while in the emergency room, she did appear to develop sepsis syndrome. She became tachycardic, had some chills. She was given some antibiotics while in the emergency room. Her heart enzyme also came back significantly elevated, although in the realm of her prior elevations, it is just a little bit higher than before. Patient concern for NSTEMI with sepsis and possible metabolic encephalopathy as well as an acute stroke. Spoke with hospitalist, they are willing to admit. Spoke with patient and patient's family about results and plan for admission, they are agreeable. Consultation(s): telestroke, cardiology ER Treatment Provided: See below Diagnostics Interpreted By Me: -ECG: EKG shows sinus tach with a rate of [address] depression in V1 through V3, also the inferior leads. A little bit of elevation appearing in aVL. Patient with prior history of infarct posteriorly. Able to look up 06-06-2024 EKG which does not show these changes. Prior EKG does have a first-degree AV block. EKG repeat with posterior leads shows ST elevation in the lateral leads. Some ST flattening throughout, poor baseline in aVL and 1. -Cardiac Monitoring: An order was placed for continuous cardiac monitoring. The monitor shows a rate of 99 with sinus rhythm. -Laboratory studies: As stated above and show below. -Imaging studies: CT CT angio showing right ICA out collaterally filling at the cavernous sinus, frontal and temporal portion of the brain do have some changes acute versus subacute. Bilateral M1 segments are patent superiorly. See report for complete. Triage Nursing Note Reviewed Prior/Outside Records Reviewed Critical Care: There was 35 minutes of critical care time spent managing this patient including any procedures. Past Med/Surg History Problem List (Updated 02/04/25 @ 18:47 by Sandeep Arguelles MD) CKD (chronic kidney disease) stage 3, GFR 30-59 ml/min Acute renal failure Hyponatremia Carotid artery occlusion Atrial fibrillation Acute non-ST elevation myocardial infarction (NSTEMI) (Acute) Acute hyperglycemia (Acute) Acute hyponatremia (Acute) Leukocytosis (Acute) Sepsis (Acute) Stroke (Acute) Wound of right foot Coronary artery disease Benign essential hypertension MRSA pneumonia PAF (paroxysmal atrial fibrillation) Osteomyelitis of right foot Uncontrolled type 2 diabetes mellitus with hyperglycemia STEMI (ST elevation myocardial infarction) DKA (diabetic ketoacidosis) (Acute) Shock circulatory Atherogenic dyslipidemia Non-ST elevation MT (NSTEMI) Metabolic encephalopathy Influenza A Acute osteomyelitis of toe (Acute) Medical History Acute kidney injury Anemia PAD (peripheral artery disease) Sepsis Osteoporosis Hypertension Neuropathy T2DM (type 2 diabetes mellitus) Social History Smoking Status: Unknown if ever smoked Second Hand Exposure: No; Do You Dip or Chew Tobacco: No; Hx Alcohol Use: No Hx Substance Use: No Preferred Language: Chinese Communication Ability: Impaired Communication Ability Comment: pt sedated on ventilator Office Support Specialist Required: No Beliefs That Will Affect Care: None Current Living Situation: Spouse Current Living Situation Comment: with spouse Feels Safe at Home: Yes Assistive Devices: None Allergies Allergies Allergy/AdvReac Type Severity Reaction Status Date / Time amoxicillin [From Augmentin] Allergy Intermediate Rash Verified 02/04/25 16:28 clavulanic acid Allergy Intermediate Rash Verified 02/04/25 16:28 [From Augmentin] Home Meds Home Medications Medication Instructions Recorded Confirmed ergocalciferol (vitamin D2) 1,250 50,000 unit PO Q14D 12/14/23 02/04/25 mcg (50,000 unit) capsule insulin glargine 100 unit/mL (3 30 unit subcut BID 09/23/24 11/15/25 mL) subcutaneous pen (Lantus Solostar U-100 Insulin) metoprolol succinate 50 mg 50 mg PO DAILY 12/14/23 02/04/25 tablet,extended release 24 hr risedronate 150 mg tablet 150 mg PO MONTHLY 12/14/23 02/04/25 tramadol 50 mg tablet 50 mg PO Q6H PRN Pain 12/14/23 02/04/25 empagliflozin 25 mg tablet 25 mg PO QAM 05/23/24 02/04/25 (Jardiance) atorvastatin 20 mg tablet 20 mg PO DAILY 02/04/25 02/04/25 furosemide 20 mg tablet 20 mg PO DAILY 02/04/25 02/04/25 insulin aspart U-100 100 unit/mL 0 sliding scale dose subcut TIDM 02/04/25 02/04/25 (3 mL) subcutaneous pen (Novolog FlexPen U-100 Insulin aspart) vit A 7,160 unit-vit C 113 mg-vit 1 tab PO DAILY 02/04/25 02/04/25 E 100 [id number] tablet Previous Rx's Medication Instructions Recorded aspirin 81 mg tablet,delayed 81 mg PO DAILY #30 tabs 01/14/24 release (Adult Aspirin Regimen) gabapentin 600 mg tablet 600 mg PO BID #180 tabs 02/05/24 Results & Data (ED) Vital Signs Vital Signs - 24 hr 02/04/25 15:20 02/04/25 15:47 02/04/25 15:48 Pulse Rate 101 H 99 H 99 H Pulse Rate from SpO2 Sensor Respiratory Rate 16 18 Blood Pressure 126/83 Blood Pressure Mean 97 Pulse Oximetry 94 92 Oxygen Delivery Method Room Air Sepsis Recent Fever Within 48 Hours No Sepsis New/Unexplained Change in Mental Status N/A Sepsis Action Taken by Nursing No Action Required 02/04/25 15:51 02/04/25 16:00 02/04/25 16:15 Pulse Rate 100 H 108 H 104 H Pulse Rate from SpO2 Sensor 71 Respiratory Rate 20 21 24 Blood Pressure 120/74 100/76 106/68 Blood Pressure Mean 89 84 80 Pulse Oximetry 92 92 Oxygen Delivery Method Room Air Sepsis Recent Fever Within 48 Hours Sepsis New/Unexplained Change in Mental Status Sepsis Action Taken by Nursing 02/04/25 16:18 02/04/25 16:30 02/04/25 16:45 Pulse Rate 112 H 123 H 129 H Pulse Rate from SpO2 Sensor 72 Respiratory Rate 24 23 21 Blood Pressure 106/68 102/76 112/93 Blood Pressure Mean 80 84 99 Pulse Oximetry 92 Oxygen Delivery Method Room Air Sepsis Recent Fever Within 48 Hours Sepsis New/Unexplained Change in Mental Status Sepsis Action Taken by Nursing 02/04/25 17:00 02/04/25 17:15 02/04/25 17:27 Pulse Rate 127 H 135 H 127 H Pulse Rate from SpO2 Sensor 133 H 133 H 131 H Respiratory Rate 22 17 20 Blood Pressure 126/101 H 97/72 L 102/71 Blood Pressure Mean 109 80 81 Pulse Oximetry 99 93 93 Oxygen Delivery Method Sepsis Recent Fever Within 48 Hours Sepsis New/Unexplained Change in Mental Status Sepsis Action Taken by Nursing 02/04/25 17:30 02/04/25 17:45 Pulse Rate 138 H 131 H Pulse Rate from SpO2 Sensor 135 H 132 H Respiratory Rate 19 18 Blood Pressure 99/76 L 117/81 Blood Pressure Mean 83 93 Pulse Oximetry 92 93 Oxygen Delivery Method Sepsis Recent Fever Within 48 Hours Sepsis New/Unexplained Change in Mental Status Sepsis Action Taken by Nursing Laboratory Data 02/04/25 15:41 02/04/25 15:41 Lab Results 02/04/25 02/04/25 02/04/25 Range/Units 15:41 15:54 17:29 WBC 11.22 H (4.8-10.8) K/ul RBC 3.72 L (4.20-5.40) M/uL Hgb 10.6 L (12.0-16.0) g/dL Hct 32.3 L (37.0-47.0) % MCV 86.8 (80.0-100.0) fL MCH 28.5 (25.0-34.0) pg MCHC 32.8 (32.0-36.0) g/dL RDW Std Deviation 40.6 (36.4-46.3) fL RDW Coeff of Nichol 12.8 (11.5-14.5) % Plt Count 219 (130-400) K/uL MPV 11.4 (9.4-12.4) fL Immature Gran % (Auto) 1.0 % Neut % (Auto) 75.2 % Lymph % (Auto) 9.1 % [place] % (Auto) 14.1 % Eos % (Auto) 0.3 % Baso % (Auto) 0.3 % Neut # (Auto) 8.45 H (1.40-6.50) K/uL Lymph # (Auto) 1.02 L (1.20-3.40) K/uL [place] # (Auto) 1.58 H (0.11-0.59) K/uL Eos # (Auto) 0.03 (0.00-0.50) K/uL Baso # (Auto) 0.03 (0.00-0.20) K/uL Immature Gran # (Auto) 0.11 (0.01-0.20) K/uL PT 11.8 (9.0-12.0) Seconds INR 1.1 (0.9-1.1) APTT 24 (21-31) Seconds PTT Ratio 0.9 VBG pH 7.27 L (7.36-7.41) VBG pCO2 44 (38-50) mmHg VBG pO2 25 mmHg VBG HCO3 20 mmol/L VBG O2 Saturation < 60.0 % VBG Base Excess -6.6 mEq/L Sodium 129 L (136-145) mmol/L Potassium 4.1 (3.5-5.1) mmol/L Chloride 96 L (98-107) mmol/L Carbon Dioxide 21 (21-32) mmol/L Anion Gap 12 H (3-11) BUN 29 H (6-23) mg/dl Creatinine 1.26 H (0.6-1.2) mg/dl Est Cr Clr Drug Dosing 47.9 ml/min eGFR 47.97 BUN/Creatinine Ratio 23.0 H (10-20) Glucose 209 H (70-99(Fasting)) mg/dl Lactate 2.0 1.3 (0.4-2.0) mmol/L Calcium 8.4 L (8.6-10.3) mg/dl Magnesium 2.1 (1.7-2.4) mg/dl Total Bilirubin 0.7 (0.2-1.0) mg/dl AST 33 (13-39) U/L ALT 22 (7-52) U/L Alkaline Phosphatase 90 (34-104) U/L Troponin I High Sens 8396.5 H* 6604.1 H* D (0-14) pg/ml Total Protein 6.4 (6.0-8.3) gm/dl Albumin 3.0 L (3.4-5.0) gm/dl Globulin 3.4 (2.5-4.0) gm/dl Albumin/Globulin Ratio 0.9 (0.9-2) SARS-CoV-2 (PCR) (Negative) Influenza Type A (PCR) (Neg) Influenza Type B (PCR) (Neg) RSV (RT-PCR) (Neg) Blood Type O Positive Antibody Screen NEGATIVE 02/04/25 Range/Units 17:45 WBC (4.8-10.8) K/ul RBC (4.20-5.40) M/uL Hgb (12.0-16.0) g/dL Hct (37.0-47.0) % MCV (80.0-100.0) fL MCH (25.0-34.0) pg MCHC (32.0-36.0) g/dL RDW Std Deviation (36.4-46.3) fL RDW Coeff of Nichol (11.5-14.5) % Plt Count (130-400) K/uL MPV (9.4-12.4) fL Immature Gran % (Auto) % Neut % (Auto) % Lymph % (Auto) % [place] % (Auto) % Eos % (Auto) % Baso % (Auto) % Neut # (Auto) (1.40-6.50) K/uL Lymph # (Auto) (1.20-3.40) K/uL [place] # (Auto) (0.11-0.59) K/uL Eos # (Auto) (0.00-0.50) K/uL Baso # (Auto) (0.00-0.20) K/uL Immature Gran # (Auto) (0.01-0.20) K/uL PT (9.0-12.0) Seconds INR (0.9-1.1) APTT (21-31) Seconds PTT Ratio VBG pH (7.36-7.41) VBG pCO2 (38-50) mmHg VBG pO2 mmHg VBG HCO3 mmol/L VBG O2 Saturation % VBG Base Excess mEq/L Sodium (136-145) mmol/L Potassium (3.5-5.1) mmol/L Chloride (98-107) mmol/L Carbon Dioxide (21-32) mmol/L Anion Gap (3-11) BUN (6-23) mg/dl Creatinine (0.6-1.2) mg/dl Est Cr Clr Drug Dosing ml/min eGFR BUN/Creatinine Ratio (10-20) Glucose (70-99(Fasting)) mg/dl Lactate (0.4-2.0) mmol/L Calcium (8.6-10.3) mg/dl Magnesium (1.7-2.4) mg/dl Total Bilirubin (0.2-1.0) mg/dl AST (13-39) U/L ALT (7-52) U/L Alkaline Phosphatase (34-104) U/L Troponin I High Sens (0-14) pg/ml Total Protein (6.0-8.3) gm/dl Albumin (3.4-5.0) gm/dl Globulin (2.5-4.0) gm/dl Albumin/Globulin Ratio (0.9-2) SARS-CoV-2 (PCR) NEGATIVE (Negative) Influenza Type A (PCR) Negative (Neg) Influenza Type B (PCR) Negative (Neg) RSV (RT-PCR) Negative (Neg) Blood Type Antibody Screen Administered Medications Discontinued Medications Sodium Chloride (Nss) 250 mls @ 999 mls/hr IV .Q16M ONE Stop: 02/04/25 16:51 Last Admin: 02/04/25 17:21 Dose: 999 mls/hr Documented By: IMELDA Cefepime HCl (Maxipime 2000mg) 2,000 mg in 20 mls @ 5 mls/min IV NOW STA; Protocol Stop: 02/04/25 17:17 Last Admin: 02/04/25 17:21 Dose: 5 mls/min Documented By: IMELDA Ioversol (Optiray 320 125ml) 120 ml IV ONCE ONE Stop: 02/04/25 15:33 Last Admin: 02/04/25 15:32 Dose: 120 ml Documented By: EDK Imaging Data Radiologist's Impression: Head CT 02/04/25 15:30 EXAM: Head CT without contrast and CT angiogram of the head and neck. History: Neurodeficit. Evaluate for acute stroke. Comparison: None. Technique: HEAD CT: Using multidetector thin collimation helical acquisition technique, axial, coronal and sagittal CT images from the skull base to the vertex were obtained without intravenous contrast. HEAD and NECK CTA: During rapid bolus intravenous injection of nonionic contrast material, axial images were obtained using thin collimation multidetector helical technique from the base of the neck through the of vertex of the head. This CT angiogram data was reconstructed at thin intervals with mild overlap. 3D reconstructions were obtained. The axial source images, multiplanar reformations, 3D reconstructions in both maximum intensity projection display and volume rendered models were reviewed. Dose reduction techniques were achieved by using automatic exposure control and/or adjustment of mA and/or kV according to patient size and/or use of iterative reconstruction technique. FINDINGS: Electrotherapist film demonstrates no abnormality. Brain windows demonstrate focal area of absent barrios-white matter differentiation posterior left frontal lobe. Additional similar findings to a greater extent involving the posterior temporal and inferior left parietal lobe with effacement of the sulci5. No appreciated hemorrhage. Basal cisterns are patent. No midline shift. Lung windows demonstrate clear included pulmonary apices. Soft tissue windows demonstrate partially included least small left pleural effusion. Vascular windows demonstrate bilateral V4 segments to be patent. Bilateral posterior inferior cerebral arteries are patent. Basilar artery is patent. Bilateral posterior cerebral arteries are patent. Dense calcified atherosclerotic changes bilateral cavernous sinus internal carotid arteries. There is absence of flow involving portions of the right cavernous sinus internal carotid artery. There appears to be collateral filling of the distal internal carotid artery at this level. Anterior communicating artery and anterior cerebral arteries are patent. Diminished cortical vessels of the left posterior temporal infra parietal region. Left middle cerebral arteries otherwise appear to be patent. Right middle cerebral arteries are patent. Bilateral posterior communicating arteries are patent. Normal variant origin left vertebral artery off the aorta. Dominant right vertebral artery. Bilateral vertebral arteries are patent. Dense calcified atherosclerotic changes bilateral carotid bulbs. Approximately 50% diameter stenosis on the left. Left common carotid, internal carotid external carotid arteries are otherwise patent. Right common carotid artery is patent. Right external carotid artery is patent. There is absence of flow shortly after takeoff of the right terminal carotid artery. This extends to the level of the distal cavernous internal carotid artery sinus. Calcified atherosclerotic disease bilateral cavernous sinus internal carotid arteries with at least 50% diameter stenoses. Although limited due to bolus timing major dural venous sinuses are patent. Diminished enhancement at the above-described regions of hypoattenuation. Bone windows demonstrate likely mucous retention cysts left maxillary sinus. Degenerative changes of the cervical spine. Impression: 1. Focal attenuation changes posterior left frontal and posterior temporal and parietal regions most worrisome for acute infarcts. Posterior frontal region may be subacute in chronicity. No appreciated hemorrhage. 2. Occlusion of the right internal carotid artery shortly after its origin extending to the level of the supraclinoid segment. There appears to be collateral filling at this level. Dense calcified atheromatous plaque bilateral carotid bulbs with approximately 50% diameter stenoses at these levels. Additional dense atheromatous plaque bilateral cavernous sinus internal carotid arteries with at least 50% diameter stenoses. 3. Remaining systemic neck vasculature is patent. 4. Diminished cortical vessels and enhancement at the level of the above-described regions of suspected ischemia. Remaining intracranial systemic vasculature is otherwise patent. Please see above for details. These critical results were communicated with the ER physician on February 04, 2025 at 1500 hrs. Central standard time. The study was analyzed using artificial intelligence software for large vessel occlusion detection. Electronically signed by Audi Ellis 02-04-2025 4:11 PM Head CTA 02/04/25 15:30 EXAM: Head CT without contrast and CT angiogram of the head and neck. History: Neurodeficit. Evaluate for acute stroke. Comparison: None. Technique: HEAD CT: Using multidetector thin collimation helical acquisition technique, axial, coronal and sagittal CT images from the skull base to the vertex were obtained without intravenous contrast. HEAD and NECK CTA: During rapid bolus intravenous injection of nonionic contrast material, axial images were obtained using thin collimation multidetector helical technique from the base of the neck through the of vertex of the head. This CT angiogram data was reconstructed at thin intervals with mild overlap. 3D reconstructions were obtained. The axial source images, multiplanar reformations, 3D reconstructions in both maximum intensity projection display and volume rendered models were reviewed. Dose reduction techniques were achieved by using automatic exposure control and/or adjustment of mA and/or kV according to patient size and/or use of iterative reconstruction technique. FINDINGS: Electrotherapist film demonstrates no abnormality. Brain windows demonstrate focal area of absent barrios-white matter differentiation posterior left frontal lobe. Additional similar findings to a greater extent involving the posterior temporal and inferior left parietal lobe with effacement of the sulci5. No appreciated hemorrhage. Basal cisterns are patent. No midline shift. Lung windows demonstrate clear included pulmonary apices. Soft tissue windows demonstrate partially included least small left pleural effusion. Vascular windows demonstrate bilateral V4 segments to be patent. Bilateral posterior inferior cerebral arteries are patent. Basilar artery is patent. Bilateral posterior cerebral arteries are patent. Dense calcified atherosclerotic changes bilateral cavernous sinus internal carotid arteries. There is absence of flow involving portions of the right cavernous sinus internal carotid artery. There appears to be collateral filling of the distal internal carotid artery at this level. Anterior communicating artery and anterior cerebral arteries are patent. Diminished cortical vessels of the left posterior temporal infra parietal region. Left middle cerebral arteries otherwise appear to be patent. Right middle cerebral arteries are patent. Bilateral posterior communicating arteries are patent. Normal variant origin left vertebral artery off the aorta. Dominant right vertebral artery. Bilateral vertebral arteries are patent. Dense calcified atherosclerotic changes bilateral carotid bulbs. Approximately 50% diameter stenosis on the left. Left common carotid, internal carotid external carotid arteries are otherwise patent. Right common carotid artery is patent. Right external carotid artery is patent. There is absence of flow shortly after takeoff of the right terminal carotid artery. This extends to the level of the distal cavernous internal carotid artery sinus. Calcified atherosclerotic disease bilateral cavernous sinus internal carotid arteries with at least 50% diameter stenoses. Although limited due to bolus timing major dural venous sinuses are patent. Diminished enhancement at the above-described regions of hypoattenuation. Bone windows demonstrate likely mucous retention cysts left maxillary sinus. Degenerative changes of the cervical spine. Impression: 1. Focal attenuation changes posterior left frontal and posterior temporal and parietal regions most worrisome for acute infarcts. Posterior frontal region may be subacute in chronicity. No appreciated hemorrhage. 2. Occlusion of the right internal carotid artery shortly after its origin extending to the level of the supraclinoid segment. There appears to be collateral filling at this level. Dense calcified atheromatous plaque bilateral carotid bulbs with approximately 50% diameter stenoses at these levels. Additional dense atheromatous plaque bilateral cavernous sinus internal carotid arteries with at least 50% diameter stenoses. 3. Remaining systemic neck vasculature is patent. 4. Diminished cortical vessels and enhancement at the level of the above-described regions of suspected ischemia. Remaining intracranial systemic vasculature is otherwise patent. Please see above for details. These critical results were communicated with the ER physician on February 04, 2025 at 1500 hrs. Central standard time. The study was analyzed using artificial intelligence software for large vessel occlusion detection. Electronically signed by Audi Ellis 02-04-2025 4:10 PM Neck CTA 02/04/25 15:30 EXAM: Head CT without contrast and CT angiogram of the head and neck. History: Neurodeficit. Evaluate for acute stroke. Comparison: None. Technique: HEAD CT: Using multidetector thin collimation helical acquisition technique, axial, coronal and sagittal CT images from the skull base to the vertex were obtained without intravenous contrast. HEAD and NECK CTA: During rapid bolus intravenous injection of nonionic contrast material, axial images were obtained using thin collimation multidetector helical technique from the base of the neck through the of vertex of the head. This CT angiogram data was reconstructed at thin intervals with mild overlap. 3D reconstructions were obtained. The axial source images, multiplanar reformations, 3D reconstructions in both maximum intensity projection display and volume rendered models were reviewed. Dose reduction techniques were achieved by using automatic exposure control and/or adjustment of mA and/or kV according to patient size and/or use of iterative reconstruction technique. FINDINGS: Electrotherapist film demonstrates no abnormality. Brain windows demonstrate focal area of absent barrios-white matter differentiation posterior left frontal lobe. Additional similar findings to a greater extent involving the posterior temporal and inferior left parietal lobe with effacement of the sulci5. No appreciated hemorrhage. Basal cisterns are patent. No midline shift. Lung windows demonstrate clear included pulmonary apices. Soft tissue windows demonstrate partially included least small left pleural effusion. Vascular windows demonstrate bilateral V4 segments to be patent. Bilateral posterior inferior cerebral arteries are patent. Basilar artery is patent. Bilateral posterior cerebral arteries are patent. Dense calcified atherosclerotic changes bilateral cavernous sinus internal carotid arteries. There is absence of flow involving portions of the right cavernous sinus internal carotid artery. There appears to be collateral filling of the distal internal carotid artery at this level. Anterior communicating artery and anterior cerebral arteries are patent. Diminished cortical vessels of the left posterior temporal infra parietal region. Left middle cerebral arteries otherwise appear to be patent. Right middle cerebral arteries are patent. Bilateral posterior communicating arteries are patent. Normal variant origin left vertebral artery off the aorta. Dominant right vertebral artery. Bilateral vertebral arteries are patent. Dense calcified atherosclerotic changes bilateral carotid bulbs. Approximately 50% diameter stenosis on the left. Left common carotid, internal carotid external carotid arteries are otherwise patent. Right common carotid artery is patent. Right external carotid artery is patent. There is absence of flow shortly after takeoff of the right terminal carotid artery. This extends to the level of the distal cavernous internal carotid artery sinus. Calcified atherosclerotic disease bilateral cavernous sinus internal carotid arteries with at least 50% diameter stenoses. Although limited due to bolus timing major dural venous sinuses are patent. Diminished enhancement at the above-described regions of hypoattenuation. Bone windows demonstrate likely mucous retention cysts left maxillary sinus. Degenerative changes of the cervical spine. Impression: 1. Focal attenuation changes posterior left frontal and posterior temporal and parietal regions most worrisome for acute infarcts. Posterior frontal region may be subacute in chronicity. No appreciated hemorrhage. 2. Occlusion of the right internal carotid artery shortly after its origin extending to the level of the supraclinoid segment. There appears to be collateral filling at this level. Dense calcified atheromatous plaque bilateral carotid bulbs with approximately 50% diameter stenoses at these levels. Additional dense atheromatous plaque bilateral cavernous sinus internal carotid arteries with at least 50% diameter stenoses. 3. Remaining systemic neck vasculature is patent. 4. Diminished cortical vessels and enhancement at the level of the above-described regions of suspected ischemia. Remaining intracranial systemic vasculature is otherwise patent. Please see above for details. These critical results were communicated with the ER physician on February 04, 2025 at 1500 hrs. Central standard time. The study was analyzed using artificial intelligence software for large vessel occlusion detection. Electronically signed by Audi Ellis 02-04-2025 4:09 PM Discharge Plan Visit Data Chief Complaint: Stroke Alert Stated Complaint: CONFUSION WEAKNESS LOW BP ED Provider: Cadence Fan Discharge Problem: Stroke, Sepsis, Leukocytosis, Acute hyponatremia, Acute hyperglycemia, Acute non-ST elevation myocardial infarction (NSTEMI) Patient Disposition: Admitted As Inpatient Condition: Serious Forms Stand Alone Forms: My [facility] Press Play Prescriptions Prescriptions: No Action gabapentin 600 mg tablet 600 mg PO BID Qty: 180 0RF aspirin [Adult Aspirin Regimen] 81 mg tablet,delayed release (DR/EC) 81 mg PO DAILY Qty: 30 11RF metoprolol succinate 50 mg tablet extended release 24 hr 50 mg PO DAILY Rx Instructions: PER PT'S "B/P RUNNING LOW, HAS NOT HAD FOR SEVERAL DAYS". tramadol 50 mg tablet 50 mg PO Q6H PRN (Reason: Pain) ergocalciferol (vitamin D2) 1,250 mcg (50,000 unit) capsule 50,000 unit PO Q14D insulin glargine [Lantus Solostar U-100 Insulin] 100 unit/mL (3 mL) insulin pen 30 unit SUBCUT BID Rx Instructions: PER PT'S "TOTAL 60 UNITS DAILY, SPLIT DOSE BID". risedronate 150 mg tablet 150 mg PO MONTHLY Rx Instructions: PER PT'S , "MIDDLE OF THE MONTH". Jardiance 25 mg tablet 25 mg PO QAM Rx Instructions: LAST FILLED 06/17/24 FOR 30 DAYS/30 TABS. UNSURE IF STILL TAKING. atorvastatin 20 mg tablet 20 mg PO DAILY furosemide 20 mg tablet 20 mg PO DAILY Rx Instructions: PER PT'S "HASN'T HAD IN A COUPLE OF DAYS". insulin aspart U-100 [Novolog FlexPen U-100 Insulin] 100 unit/mL (3 mL) insulin pen 0 sliding scale dose SUBCUT TIDM MDD 50 UNITS/DAILY Eye Vitamin and Minerals [id number] [id number] Tablet 1 tab PO DAILY Referrals Referrals: PCP,NO [Physician] - Discharge Problem: Stroke Qualifiers: CVA mechanism: embolism Precerebral and cerebral artery: middle cerebral artery Laterality of affected vessel: left Qualified Code(s): I63.412 - Cerebral infarction due to embolism of left middle cerebral artery
[2025-02-04 15:59] LABS: Hematocrit (blood only) 32.3 % (37.0-47.0); Hemoglobin 10.6 g/dL (12.0-16.0); Immature Granulocytes # (auto) 0.11 K/uL (0.01-0.20); Immature Granulocytes % (auto) 1.0 %; Mean Corpuscular Hemoglobin 28.5 pg (25.0-34.0); Mean Corpuscular Volume 86.8 fL (80.0-100.0); Platelet Count 219 K/uL (130-400); RDW Standard Deviation 40.6 fL (36.4-46.3); Red Blood Count 3.72 M/uL (4.20-5.40); White Blood Count 11.22 K/ul (4.8-10.8)
--- NOTE | 2025-02-04 16:10 | CT Scan Report ---
EXAM: Head CT without contrast and CT angiogram of the head and neck. History: Neurodeficit. Evaluate for acute stroke. Comparison: None. Technique: HEAD CT: Using multidetector thin collimation helical acquisition technique, axial, coronal and sagittal CT images from the skull base to the vertex were obtained without intravenous contrast. HEAD and NECK CTA: During rapid bolus intravenous injection of nonionic contrast material, axial images were obtained using thin collimation multidetector helical technique from the base of the neck through the of vertex of the head. This CT angiogram data was reconstructed at thin intervals with mild overlap. 3D reconstructions were obtained. The axial source images, multiplanar reformations, 3D reconstructions in both maximum intensity projection display and volume rendered models were reviewed. Dose reduction techniques were achieved by using automatic exposure control and/or adjustment of mA and/or kV according to patient size and/or use of iterative reconstruction technique. FINDINGS: Customer Engineering Specialist film demonstrates no abnormality. Brain windows demonstrate focal area of absent barrios-white matter differentiation posterior left frontal lobe. Additional similar findings to a greater extent involving the posterior temporal and inferior left parietal lobe with effacement of the sulci5. No appreciated hemorrhage. Basal cisterns are patent. No midline shift. Lung windows demonstrate clear included pulmonary apices. Soft tissue windows demonstrate partially included least small left pleural effusion. Vascular windows demonstrate bilateral V4 segments to be patent. Bilateral posterior inferior cerebral arteries are patent. Basilar artery is patent. Bilateral posterior cerebral arteries are patent. Dense calcified atherosclerotic changes bilateral cavernous sinus internal carotid arteries. There is absence of flow involving portions of the right cavernous sinus internal carotid artery. There appears to be collateral filling of the distal internal carotid artery at this level. Anterior communicating artery and anterior cerebral arteries are patent. Diminished cortical vessels of the left posterior temporal infra parietal region. Left middle cerebral arteries otherwise appear to be patent. Right middle cerebral arteries are patent. Bilateral posterior communicating arteries are patent. Normal variant origin left vertebral artery off the aorta. Dominant right vertebral artery. Bilateral vertebral arteries are patent. Dense calcified atherosclerotic changes bilateral carotid bulbs. Approximately 50% diameter stenosis on the left. Left common carotid, internal carotid external carotid arteries are otherwise patent. Right common carotid artery is patent. Right external carotid artery is patent. There is absence of flow shortly after takeoff of the right terminal carotid artery. This extends to the level of the distal cavernous internal carotid artery sinus. Calcified atherosclerotic disease bilateral cavernous sinus internal carotid arteries with at least 50% diameter stenoses. Although limited due to bolus timing major dural venous sinuses are patent. Diminished enhancement at the above-described regions of hypoattenuation. Bone windows demonstrate likely mucous retention cysts left maxillary sinus. Degenerative changes of the cervical spine. Impression: 1. Focal attenuation changes posterior left frontal and posterior temporal and parietal regions most worrisome for acute infarcts. Posterior frontal region may be subacute in chronicity. No appreciated hemorrhage. 2. Occlusion of the right internal carotid artery shortly after its origin extending to the level of the supraclinoid segment. There appears to be collateral filling at this level. Dense calcified atheromatous plaque bilateral carotid bulbs with approximately 50% diameter stenoses at these levels. Additional dense atheromatous plaque bilateral cavernous sinus internal carotid arteries with at least 50% diameter stenoses. 3. Remaining systemic neck vasculature is patent. 4. Diminished cortical vessels and enhancement at the level of the above-described regions of suspected ischemia. Remaining intracranial systemic vasculature is otherwise patent. Please see above for details. These critical results were communicated with the ER physician on February 04, 2025 at 1500 hrs. Central standard time. The study was analyzed using artificial intelligence software for large vessel occlusion detection. Electronically signed by Audi Ellis 02-04-2025 4:09 PM
[2025-02-04 16:17] LABS: Alanine Aminotransferase 22.0 U/L (7-52); Albumin Globulin Ratio 0.9 (0.9-2); Albumin Level 3.0 gm/dl (3.4-5.0); Alkaline Phosphatase 90.0 U/L (34-104); Anion Gap 12.0 (3-11); Bilirubin,Total 0.7 mg/dl (0.2-1.0); Blood Urea Nitrogen 29.0 mg/dl (6-23); Calcium 8.4 mg/dl (8.6-10.3); Carbon Dioxide 21.0 mmol/L (21-32); Chloride 96.0 mmol/L (98-107); Creatinine Clr Calc Pharmacy 47.9 ml/min; Globulin 3.4 gm/dl (2.5-4.0); Glucose 209.0 mg/dl (70-99(Fasting)); Magnesium 2.1 mg/dl (1.7-2.4); Potassium 4.1 mmol/L (3.5-5.1); Sodium 129.0 mmol/L (136-145); Total Protein 6.4 gm/dl (6.0-8.3)
[2025-02-04 16:29] LABS: INR 1.1 (0.9-1.1); Partial Thromboplastin Time 24 Seconds (21-31); Prothrombin Time 11.8 Seconds (9.0-12.0)
[2025-02-04] MEDS ORDERED: VANCOMYCIN CONSULT ACTIVE PRN (17:13)
[2025-02-04] MEDS: CEFEPIME 2000MG 2,000 MG/20 ML SYR IV STA (17:21)
[2025-02-04] MEDS: SODIUM CHLORIDE 0.9% 250 ML IV ONE (17:21)
[2025-02-04 17:50] LABS: Base Excess VBG -6.6 mEq/L; HCO3 VBG 20 mmol/L; Oxygen Saturation VBG < 60.0 %; PCO2 VBG 44 mmHg (38-50); PO2 VBG 25 mmHg; pH VBG 7.27 (7.36-7.41)
--- NOTE | 2025-02-04 18:23 | History & Physical Report ---
Date of Service February 04, 2025 Assessment & Plan (1) Stroke: Plan: CTA head on 02/04/2025 showed posterior left frontal, temporal, parietal region attenuation changes, concerning for acute stroke. Last known well was 10:00pm 02/03/2025. For me on admission, NIHSS is 12. NOT a candidate for TNK as out of window. Discussed with stroke neurologist on admission. Initially recommended aspirin 325 mg and clopidogrel 300 mg; HOWEVER, given concern for STEMI, he advised only go with aspirin with heparin. She is a HIGH hemorrhagic conversion risk. - MRI brain ordered - Echo - ASA 300 mg FL rectally until cleared by AUTO JOB ESTIMATOR, then switch to 81 mg PO daily - Repeat CT head tomorrow AM to watch for hemorrhage - Neurology consulted - Permissive hypertension - ICU admission (2) STEMI (ST elevation myocardial infarction): Plan: Posterior EKG at 5:40pm shows ST elevations in V7 - V9 (Leads labeled V4 - V6 on EKG). Discussed with on-call interventional cardiology. Given above concerns, CANNOT do full ACS protocol with aspirin, Plavix, and heparin. I suspect this STEMI actually began on Thursday when she was not feeling well and complained of left neck pain to her . Though aphasic, no indication of active chest or neck pain presently. - ASA 300 mg FL daily as above - Low-dose heparin gtt NO bolus - Metoprolol IV pushes for afib - Trend troponins and EKGs - Cardiology consulted (3) Atrial fibrillation: Plan: Prior atrial fibrillation in last admission. She was not discharged on AC due to GI bleeding. The plan had been to get GI clearance, then start AC, but that does not appear to have happened. - Heparin gtt as above - Metoprolol 5 mg IV Q2h PRN for HR > 110 (4) Benign essential hypertension: Plan: Baseline SBPs per are 130s. Had been lower in the last few days, I suspect in the context of STEMI. Presently BPs are in the 120/80 range. - Monitor BPs (5) Coronary artery disease: Plan: Prior LHC in 05/2024 with diffuse CAD. - Plan as above (6) DKA (diabetic ketoacidosis): Plan: Mild AG on presentation of 12. However, blood sugar only 209. - SSI - Going to ICU -> Defer to their management if they feel insulin gtt required, though I don't at this time. (7) Carotid artery occlusion: Plan: Right-sided. Noted on CTA neck on 02/04/2025. With collateral reconstitution on the CT. - Vascular surgery consult (8) Hyponatremia: Plan: Na noted to be 129 on admission. Corrects to 132 with hyperglycemia. - Monitor (9) CKD (chronic kidney disease) stage 3, GFR 30-59 ml/min: Plan: Cr was 1.26 on admission, appears at baseline. - Dose meds for ~50 - Monitor Plan FULL CODE - As discussed with in the ER History of Present Illness Chief Complaint: Altered mental status Primary Care Provider: Jeferson Oneil PA-C Ms. Hay is a 64yo F w/ hx of DM, PAD, and HTN who presents with altered mental status and likely STEMI. The patient is largely aphasic and only answers in a few, sporadic, random words. Her reports that she had been ill on Thursday and . He reports she told him she was having left-sided neck pain, but denies cough, fevers/chills, or any other specific complaints. She mostly spent those days in bed. The reports that she did get up on Thursday and helped make breakfast. He is not super specific, but it does sound like she was not her usual self on Thursday, as he reports she was stumbling around and not herself. He went to work today without seeing her, and his brother checked on his around 11:30am this morning and phoned him saying she was aphasic at that time. The patient herself cannot provide an ROS. She answers questions with random responses, including "Open!" "Yeah!" & "Time!" Allergies Allergy/AdvReac Type Severity Reaction Status Date / Time amoxicillin [From Augmentin] Allergy Intermediate Rash Verified 02/04/25 16:28 clavulanic acid Allergy Intermediate Rash Verified 02/04/25 16:28 [From Augmentin] Home Medications Medication Instructions Recorded Confirmed Type ergocalciferol (vitamin D2) 1,250 50,000 unit PO Q14D 12/14/23 02/04/25 History mcg (50,000 unit) capsule insulin glargine 100 unit/mL (3 30 unit subcut BID 12/14/23 02/04/25 History mL) subcutaneous pen (Lantus Solostar U-100 Insulin) metoprolol succinate 50 mg 50 mg PO DAILY 12/14/23 02/04/25 History tablet,extended release 24 hr risedronate 150 mg tablet 150 mg PO MONTHLY 12/14/23 02/04/25 History tramadol 50 mg tablet 50 mg PO Q6H PRN Pain 12/14/23 02/04/25 History aspirin 81 mg tablet,delayed 81 mg PO DAILY #30 tabs 01/14/24 02/04/25 Rx release (Adult Aspirin Regimen) gabapentin 600 mg tablet 600 mg PO BID #180 tabs 02/05/24 02/04/25 Rx empagliflozin 25 mg tablet 25 mg PO QAM 05/23/24 02/04/25 History (Jardiance) atorvastatin 20 mg tablet 20 mg PO DAILY 02/04/25 02/04/25 History furosemide 20 mg tablet 20 mg PO DAILY 02/04/25 02/04/25 History insulin aspart U-100 100 unit/mL 0 sliding scale dose subcut TIDM 02/04/25 02/04/25 History (3 mL) subcutaneous pen (Novolog FlexPen U-100 Insulin aspart) vit A 7,160 unit-vit C 113 mg-vit 1 tab PO DAILY 02/04/25 02/04/25 History E 100 [id number] tablet Past Med/Surg History Problem List (Updated 02/04/25 @ 18:47 by Sandeep Arguelles MD) CKD (chronic kidney disease) stage 3, GFR 30-59 ml/min Acute renal failure Hyponatremia Carotid artery occlusion Atrial fibrillation Acute non-ST elevation myocardial infarction (NSTEMI) (Acute) Acute hyperglycemia (Acute) Acute hyponatremia (Acute) Leukocytosis (Acute) Sepsis (Acute) Stroke (Acute) Wound of right foot Coronary artery disease Benign essential hypertension MRSA pneumonia PAF (paroxysmal atrial fibrillation) Osteomyelitis of right foot Uncontrolled type 2 diabetes mellitus with hyperglycemia STEMI (ST elevation myocardial infarction) DKA (diabetic ketoacidosis) (Acute) Shock circulatory Atherogenic dyslipidemia Non-ST elevation MS (NSTEMI) Metabolic encephalopathy Influenza A Acute osteomyelitis of toe (Acute) Medical History Acute kidney injury Anemia PAD (peripheral artery disease) Sepsis Osteoporosis Hypertension Neuropathy T2DM (type 2 diabetes mellitus) Social History Smoking Status: Unknown if ever smoked Second Hand Exposure: No; Do You Dip or Chew Tobacco: No; Hx Alcohol Use: No Hx Substance Use: No Preferred Language: Martiniquais Communication Ability: Impaired Communication Ability Comment: pt sedated on ventilator Floor Manager Required: No Beliefs That Will Affect Care: None Current Living Situation: Spouse Current Living Situation Comment: with spouse Feels Safe at Home: Yes Assistive Devices: None Review of Systems Review of Systems: Unobtainable due to cognitive status Physical Exam Constitutional: WD/WN, vitals as above Eyes: EOM intact bilaterally (Does not track well, but no nystagmus seen.) ENMT: external ear and nose normal, oropharynx normal Neck: trachea midline, no thyromegaly Respiratory: normal respiratory effort, lungs clear to auscultation Cardiovascular: Rate/Rhythm: + tachycardic and + irregularly irregular Heart Sounds: normal S1 and normal S2; no gallop, no murmur and no cardiac rub Gastrointestinal (Abdomen): normal bowel sounds, soft, nontender, no hepatosplenomegaly Neurologic: awake and + confused Speech / Cognition: + expressive aphasia Motor/Sensory: + pronator drift (Bilateral); no tremor Coordination: + abnormal [id number]-[id number] test (Unable to do it on either side) Results & Data Results & Data Vital Signs (Past 12 Hours) Vital Signs Pulse Resp BP Pulse Ox O2 Del Method 02/04/25 17:45 131 H 18 117/81 93 02/04/25 17:30 138 H 19 99/76 L 92 02/04/25 17:27 127 H 20 102/71 93 02/04/25 17:15 135 H 17 97/72 L 93 02/04/25 17:00 127 H 22 126/101 H 99 02/04/25 16:45 129 H 21 112/93 02/04/25 16:30 123 H 23 102/76 02/04/25 16:18 112 H 24 106/68 92 Room Air 02/04/25 16:15 104 H 24 106/68 92 Room Air 02/04/25 16:00 108 H 21 100/76 02/04/25 15:51 100 H 20 120/74 92 02/04/25 15:48 99 H 18 92 02/04/25 15:47 99 H 02/04/25 15:20 101 H 16 126/83 94 Room Air Code Status & VTE Plan VTE Prophylaxis Plan VTE Prophylaxis will be ordered: No PG Care Time/CCT Total # of Minutes Spent Total Time Spent with Patient: Total time spent is greater than 50% in coordination of care (as documented) at patient's floor/unit and/or counseling patient: Coding Level of Care Code 44394 INT INP/OBS CARE 3/75MIN Diagnoses Cerebrovascular accident (CVA) due to embolism of left middle cerebral artery I63.412 CVA mechanism: embolism Precerebral and cerebral artery: middle cerebral artery Laterality of affected vessel: left ST elevation myocardial infarction (STEMI) involving other coronary artery of inferior wall I21.19 Involved coronary artery: other inferior wall coronary artery Paroxysmal atrial fibrillation I48.0 Atrial fibrillation type: paroxysmal Benign essential hypertension I10 Coronary artery disease involving [place] coronary artery of [place] heart, unspecified whether angina present I25.10 Coronary Disease-Associated Artery/Lesion type: [place] artery [place] vs. transplanted heart: [place] heart Associated angina: unspecified whether angina present Diabetic ketoacidosis without coma associated with type 2 diabetes mellitus E11.10 Diabetes mellitus type: type 2 Diabetes mellitus complication detail: without coma Occlusion of right carotid artery I65.21 Laterality: right Hyponatremia E87.1 CKD (chronic kidney disease) stage 3, GFR 30-59 ml/min N18.30 (1) Stroke CVA mechanism: embolism Precerebral and cerebral artery: middle cerebral artery Laterality of affected vessel: left Qualified Code(s): I63.412 - Cerebral infarction due to embolism of left middle cerebral artery (2) STEMI (ST elevation myocardial infarction) Involved coronary artery: other inferior wall coronary artery Qualified Code(s): I21.19 - ST elevation (STEMI) myocardial infarction involving other coronary artery of inferior wall (3) Atrial fibrillation Atrial fibrillation type: paroxysmal Qualified Code(s): I48.0 - Paroxysmal atrial fibrillation (5) Coronary artery disease Coronary Disease-Associated Artery/Lesion type: [place] artery [place] vs. transplanted heart: [place] heart Associated angina: unspecified whether angina present Qualified Code(s): I25.10 - Atherosclerotic heart disease of [place] coronary artery without angina pectoris (6) DKA (diabetic ketoacidosis) Diabetes mellitus type: type 2 Diabetes mellitus complication detail: without coma Qualified Code(s): E11.10 - Type 2 diabetes mellitus with ketoacidosis without coma (7) Carotid artery occlusion Laterality: right Qualified Code(s): I65.21 - Occlusion and stenosis of right carotid artery
[2025-02-04 18:41] LABS: Influenza A virus by PCR Negative (Neg); Influenza B virus by PCR Negative (Neg); SARS CoV2 RNA(COVID-19) Ceph NEGATIVE (Negative)
[2025-02-04] MEDS ORDERED: METOPROLOL TARTRATE 1 MG/ML VIAL IV PRN (18:48)
[2025-02-04] MEDS ORDERED: DEXTROSE 50% 50 ML SYRINGE IV PRN (20:11)
[2025-02-04] MEDS ORDERED: GLUCAGON FOR INJ 1 MG VIAL SQ PRN (20:11)
[2025-02-04] MEDS ORDERED: GLUCOSE 40% GEL 15 GM TUBE PO PRN (20:11)
[2025-02-04] MEDS ORDERED: ONDANSETRON INJ 2 MG/ML 2 ML VIAL IV PRN (20:11)
[2025-02-04] MEDS ORDERED: CARBOHYDRATES FOR HYPOGLYCEMIA PO PRN (20:11)
[2025-02-04] MEDS ORDERED: GLUCOSE 10 TAB/TUBE PO PRN (20:11)
[2025-02-04] MEDS: LACTATED RINGER'S 1,000 ML IV ONE (20:13)
[2025-02-04] MEDS: VANCOMYCIN HCL 2,250 MG in SODIUM CHLORIDE 0.9% 500 ML IV ONE (20:13)
[2025-02-04 20:15] LABS: Hemoglobin A1C 13.2 % (4.5-5.6)
[2025-02-04] MEDS: ASPIRIN 300 MG SUPP PR ONE (20:39)
[2025-02-04] MEDS: INSULIN ASPART PER UNIT CHARGE SC SCH (20:41)
--- NOTE | 2025-02-04 20:48 | Critical Care Consultation ---
<Statement entered by Siva Allen MD - 02/05/25 10:17> I, Siva Allen MD, reviewed the physical exam, assessment, plan, and management as documented by the Advanced Care Provider Lu Solorzano PA-C, for this patient encounter. I discussed the case with them, confirmed the findings, and I concur with the proposed plan of care. I was available for consultation throughout the encounter and provided guidance as needed. Date of Consultation February 04, 2025 Assessment & Plan (1) Atrial fibrillation: (2) Carotid artery occlusion: (3) Hyponatremia: (4) CKD (chronic kidney disease) stage 3, GFR 30-59 ml/min: (5) Leukocytosis: (6) Coronary artery disease: (7) PAF (paroxysmal atrial fibrillation): (8) Uncontrolled type 2 diabetes mellitus with hyperglycemia: (9) Ischemic cerebrovascular accident (CVA): Plan Reason Critically Ill: 1. Acute ischemic stroke, frontal, temporal, and parietal, likely embolic in origin 2. Paroxysmal atrial fibrillation 3. R ICA occlusion, chronic 4. STEMI, demand vs. primary ACS 5. Uncontrolled IDDMII (13.2% 01/2025) 6. Medical non-compliance 7. Leukocytosis with neutrophil predominance, stress-mediated 8. Mixed acidosis 9. Hyperglycemia Neuro - [facility] ICU: Negative RASS GOAL 0 Close neurologic checks per protocol Stroke work-up: TTE with bubble study, lipid panel, A1c Avoid hypertension, high risk for hemorrhagic conversion MRI pending CTH in AM or sooner if neurologic change No cerebral edema noted on initial CT Neurology consult, appreciate recommendations Cardiac - Low dose, non-bolus heparin infusion initiated after discussion with Cardiology and Neurology ASA ME until seen by AUTOMOTIVE SALES ASSOCIATE, no Plavix MAP goal > 65mmHg, strict avoidance of hypertension. 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 Give additional 1L now. Bolus PRN Maintain net even to net negative ENDO - BG 140-180 per SCCM guidelines ISS while inpatient, hold Jardiance A1c 13.2% today HEME - Low dose non-bolus heparin infusion ID - No acute concerns Stop empiric antibiotics. Procalcitonin WNL. No clinical signs of infection UA pending, MRSA nares pending. Does have history of MRSA PNA LINES/TUBES/DRAINS - PIV x2 DVT PROPHYLAXIS - Heparin infusion CODE STATUS - FULL DISPOSITION - ICU I have personally spent 51 minutes of critical care time in the direct management of this patient. This is a life/limb threatening event. This includes time spent evaluating patient, direct bedside care, chart review, placing ord ers, interpretation of diagnostic studies, discussion with consultants, patient, and family members, as well as other required patient management activities. This time is exclusive of all separately billable procedures, and teaching time and separate from and in addition to any other critical care service time. Thank you for allowing us to participate in the care of this patient. Please refer to my attending physician's documentation for any further recommendations. History of Present Illness Reason for Consultation: CVA, STEMI Requesting Physician: Blane Attending Physician: Sandeep Arguelles MD History of Present Illness Mrs. Monie Hay is a 64YOF with a history of [] who presented to [facility] ED from home on the afternoon of 02/04/2025 due to asphasia and recent illness. Per report, patient was complaining of jaw and neck pain on 02/01-02/02 as well as generally feeling unwell. She slept most of 02/02. The morning of 02/03 she did not seem herself and was stumbling at times. Mid-morning on 02/04 one of the patient's family members went to check on her at home and noted she was aphasic. Her LKW was 02/03 at 2200. Patient tachycardic but otherwise hemodynamically stable in ED. Underwent CTA H/N, CTH revealing L frontal, temporal, and parietal CVA with loss of barrios-white matter differentiation and effacement of sulci as well as R ICA occlusion with collaterals indicative of chronic occlusion. Stroke neurologist was consulted. Patient out of window for TNK, recommended DAPT via ASA/Plavix. On EKG ST elevations in lateral leads noted. Cardiology was consulted, no veterinary laboratory technician, no further recommendations. Patient did transition from sinus rhythm to atrial fibrillation while in ED. She was started on heparin infusion and ASA load without Plavix after further discussion with Neurology. Labs remarkable for leukocytosis with neutrophil predominance, elevated troponin. Received 250cc NSS, empiric cefepime and vancomycin. Admitted to ICU for close neurologic monitoring and continued management. Patient seen in ICU 101. She awakens to voice. Intermittently following commands. Responds with inappropriate words at times. Repeats "puppies" and "open" and "smile". is at bedside providing additional history. reached out to PCP on who recommended patient present to ED to evaluation. Patient refused at that time. appropriately stopped her antihypertensives and furosemide due to low blood pressure measurements at home. He attempted to get Monie to drink more water. We discussed patient's condition in detail. Alex understands that Moine has suffered likely multiple ischemic strokes over the past one week as evidenced by imaging. I did explain that the likely etiology is embolic from arrhythmia, and we will be cautiously anticoagulating Monie. He understands that given the stroke burden there is a considerable risk of hemorrhagic conversation/bleeding in the brain. He was informed of our overnight plans with CTH in AM to re-evaluate. All questions answered to apparent satisfaction. LTAC was held at discharge in May 2024 due to UGIB likely 2/2 esophagitis. She was to follow up with GI prior to initiation of anticoagulation. denies being aware of this. Patient is unable to answer at this time. Allergies Allergy/AdvReac Type Severity Reaction Status Date / Time amoxicillin [From Augmentin] Allergy Intermediate Rash Verified 02/04/25 16:28 clavulanic acid Allergy Intermediate Rash Verified 02/04/25 16:28 [From Augmentin] Home Medications Medication Instructions Recorded Confirmed Type ergocalciferol (vitamin D2) 1,250 50,000 unit PO Q14D 12/14/23 02/04/25 History mcg (50,000 unit) capsule insulin glargine 100 unit/mL (3 30 unit subcut BID 12/14/23 02/04/25 History mL) subcutaneous pen (Lantus Solostar U-100 Insulin) metoprolol succinate 50 mg 50 mg PO DAILY 12/14/23 02/04/25 History tablet,extended release 24 hr risedronate 150 mg tablet 150 mg PO MONTHLY 12/14/23 02/04/25 History tramadol 50 mg tablet 50 mg PO Q6H PRN Pain 12/14/23 02/04/25 History aspirin 81 mg tablet,delayed 81 mg PO DAILY #30 tabs 01/14/24 02/04/25 Rx release (Adult Aspirin Regimen) gabapentin 600 mg tablet 600 mg PO BID #180 tabs 02/05/24 02/04/25 Rx empagliflozin 25 mg tablet 25 mg PO QAM 05/23/24 02/04/25 History (Jardiance) atorvastatin 20 mg tablet 20 mg PO DAILY 02/04/25 02/04/25 History furosemide 20 mg tablet 20 mg PO DAILY 02/04/25 02/04/25 History insulin aspart U-100 100 unit/mL 0 sliding scale dose subcut TIDM 02/04/25 02/04/25 History (3 mL) subcutaneous pen (Novolog FlexPen U-100 Insulin aspart) vit A 7,160 unit-vit C 113 mg-vit 1 tab PO DAILY 02/04/25 02/04/25 History E 100 [id number] tablet Patient History Medical History Acute kidney injury Anemia PAD (peripheral artery disease) Sepsis Osteoporosis Hypertension Neuropathy T2DM (type 2 diabetes mellitus) Social History Smoking Status: Never smoker Second Hand Exposure: No; Do You Dip or Chew Tobacco: No; Tobacco Cessation Education Requested by Patient: No Hx Alcohol Use: No Hx Substance Use: No Preferred Language: [place] Communication Ability: Impaired Communication Ability Comment: aphasic Childcare Center Administrator Required: No Beliefs That Will Affect Care: None Current Living Situation: Spouse Current Living Situation Comment: with spouse Other Information That Helps Us Care for You: No Feels Safe at Home: Yes Safety Concerns: Feels Safe At This Time Assistive Devices: Glasses and Walker Review of Systems Review of Systems: Unobtainable due to cognitive status Physical Exam Constitutional: WD/WN, vitals as above Eyes: PERRL, conjunctivae normal, anicteric sclerae ENMT: external ear and nose normal, oropharynx normal Neck: trachea midline, no thyromegaly Respiratory: normal respiratory effort, lungs clear to auscultation Cardiovascular: RRR, no murmur, no edema Gastrointestinal (Abdomen): normal bowel sounds, soft, nontender, no hepatosplenomegaly Musculoskeletal: no cyanosis or clubbing, extremities motor strength 5/5 Skin: no rashes, warm and dry Neurologic: awake and + confused; no focal motor deficits Speech / Cognition: + abnormal speech, + expressive aphasia and + receptive aphasia Motor/Sensory: no asterixis Cranial Nerves: PERRL, tongue midline, normal hearing and able to rotate head bilaterally Unable to perform some tasks Genitourinary: Deferred Results & Data Results & Data Vital Signs (Past 12 Hours) Vital Signs Temp Pulse Pulse Resp BP BP Pulse Ox 02/04/25 20:17 116 H 18 95/68 L 94 02/04/25 20:11 38.0 C H 84 20 115/70 97 02/04/25 19:00 116 H 18 95/68 L 94 02/04/25 17:45 131 H 18 117/81 93 02/04/25 17:30 138 H 19 99/76 L 92 02/04/25 17:27 127 H 20 102/71 93 02/04/25 17:15 135 H 17 97/72 L 93 02/04/25 17:00 127 H 22 126/101 H 99 02/04/25 16:45 129 H 21 112/93 02/04/25 16:30 123 H 23 102/76 02/04/25 16:18 112 H 24 106/68 92 02/04/25 16:15 104 H 24 106/68 92 02/04/25 16:00 108 H 21 100/76 02/04/25 15:51 100 H 20 120/74 92 02/04/25 15:48 99 H 18 92 02/04/25 15:47 99 H 02/04/25 15:20 101 H 16 126/83 94 O2 Del Method 02/04/25 20:17 Room Air 02/04/25 20:11 Room Air 02/04/25 19:00 Room Air 02/04/25 17:45 02/04/25 17:30 02/04/25 17:27 02/04/25 17:15 02/04/25 17:00 02/04/25 16:45 02/04/25 16:30 02/04/25 16:18 Room Air 02/04/25 16:15 Room Air 02/04/25 16:00 02/04/25 15:51 02/04/25 15:48 02/04/25 15:47 02/04/25 15:20 Room Air Laboratory Results Reviewed Diagnostic Findings Reviewed Medications Administered See MAR Coding Level of Care Code 34203 IN/OBS CONSULT LVL 3,45M Diagnoses Paroxysmal atrial fibrillation I48.0 Atrial fibrillation type: paroxysmal Occlusion of right carotid artery I65.21 Laterality: right Hyponatremia E87.1 CKD (chronic kidney disease) stage 3, GFR 30-59 ml/min N18.30 Leukocytosis D72.829 Coronary artery disease involving [place] coronary artery of [place] heart, unspecified whether angina present I25.10 Associated angina: unspecified whether angina present Coronary Disease-Associated Artery/Lesion type: [place] artery [place] vs. transplanted heart: [place] heart PAF (paroxysmal atrial fibrillation) I48.0 Uncontrolled type 2 diabetes mellitus with hyperglycemia E11.65 Ischemic cerebrovascular accident (CVA) I63.9 Time Spent (min) 51 (1) Atrial fibrillation Atrial fibrillation type: paroxysmal Qualified Code(s): I48.0 - Paroxysmal atrial fibrillation (2) Carotid artery occlusion Laterality: right Qualified Code(s): I65.21 - Occlusion and stenosis of right carotid artery (6) Coronary artery disease Associated angina: unspecified whether angina present Coronary Disease-As sociated Artery/Lesion type: [place] artery [place] vs. transplanted heart: [place] heart Qualified Code(s): I25.10 - Atherosclerotic heart disease of [place] coronary artery without angina pectoris
[2025-02-04] MEDS: HEPARIN 25000 UNIT/500 ML D5W 25,000 UNITS/500 ML BAG IV SCH (21:12)
[2025-02-04] MEDS: Heparin IV Adult Wt-Based Low-Dose *NO* INITIAL Bolus Protocol IV STA (21:25)
[2025-02-04 21:45] LABS: Appearance Urine Clear (Clear); Bacteria Urine Automated 4+ (None Seen); Epithelial Cell Urine Auto 0-2 /hpf (0-2); Glucose Urine UA 3+ (Negative); RBC Urine Automated 0-2 /hpf (0-2); WBC Urine Automated 0-5 /hpf (0-5)
[2025-02-05 03:22] LABS: Hematocrit (blood only) 31.4 % (37.0-47.0); Hemoglobin 10.2 g/dL (12.0-16.0); Immature Granulocytes # (auto) 0.05 K/uL (0.01-0.20); Immature Granulocytes % (auto) 0.5 %; Mean Corpuscular Hemoglobin 28.3 pg (25.0-34.0); Mean Corpuscular Volume 87.2 fL (80.0-100.0); Platelet Count 220 K/uL (130-400); RDW Standard Deviation 41.5 fL (36.4-46.3); Red Blood Count 3.60 M/uL (4.20-5.40); White Blood Count 9.35 K/ul (4.8-10.8)
[2025-02-05 03:38] LABS: Cholesterol 92.0 mg/dl (0-200); HDL Cholesterol 21.0 mg/dl; Triglycerides 118.0 mg/dl (0-150)
[2025-02-05 04:13] LABS: ANTI-Xa, UFH(UnfractionatedHep < 0.10 IU/ml (0.3-0.7)
[2025-02-05] MEDS: HEPARIN SOD (PORCINE) 1000 UNIT/ML IV ONE ×3 (04:41→22:16)
[2025-02-05] MEDS: cefTRIAXone SODIUM 2,000 MG/50 ML BAG IV SCH (05:13)
[2025-02-05] MEDS: PANTOprazole 40 MG/10 ML SYR IV SCH (07:45)
--- NOTE | 2025-02-05 08:22 | CT Scan Report ---
EXAM: CT head/brain wo con CLINICAL HISTORY: Large stroke. TECHNIQUE: Axial non-contrast CT scan of the brain was performed from the skull base to the high parietal region in axial, sagittal and coronal reconstructions. One of the following dose reduction techniques were utilized for this exam: Automated exposure control, adjustment of the mA and/or kV according to patient size, use of iterative reconstruction. COMPARISON: Comparison with the previous CT study dated 02/04/2025. FINDINGS: Brain Parenchyma: Now well-established hypodense, ill-defined cortical and subcortical area noted at the left parietal and temporal region representing acute infarct Still noted a faint hypodense area at the left frontal region with no edema around or exerting mass effect. Normal attenuation of the cerebellum and brainstem. No evidence of hemorrhage or mass effect. No abnormal areas of hyperattenuation. Ventricular System: Ventricles are normal in size and configuration. No evidence of hydrocephalus or ventricular enlargement. Subarachnoid Spaces: Normal sulci and cisterns. No evidence of subarachnoid hemorrhage or extra-axial fluid collections. A partial empty sella noted. Cerebellum and Brainstem: No masses, lesions, or areas of abnormal density. Orbits: Normal appearance of the globes, optic nerves, and extraocular muscles. No evidence of orbital masses or abnormal density. Sinuses: Bilateral maxillary sinusitis with left side maxillary mucous retention cyst formation. Mastoid Air Cells: Clear mastoid air cells. No evidence of mastoiditis. Skull: Normal skull morphology. IMPRESSION: 1. Mild progressive course of the previously noted hypodense, ill-defined cortical and subcortical area noted at the left parietal and temporal regions, denoting now well-established acute infarction related to left MCA terriorty to be clincial assessment. No definite hemorrhage seen . Further evaluation by MRI if clinically needed. 2. Still noted a small hypodense area at the left frontal region with no edema around or exerting mass effect, likely old vascular insult with encephalomalacia formation. Electronically signed by Layo Mckeon 02-05-2025 08:22 AM
--- NOTE | 2025-02-05 09:07 | Neurology Progress Note ---
Date of Service February 05, 2025 Assessment & Plan (1) Acute cerebrovascular accident (CVA) due to embolism of left middle cerebral artery: - Recommend holding antiplatelet therapy at this time due to somewhat large area of ischemic stroke noted on repeat CT head without contrast and due to concern for hemorrhagic conversion with concurrent anticoagulation with heparin drip. May continue low dose heparin drip for secondary stroke prevention in setting of paroxysmal atrial fibrillation. Heparin drip may eventually be transitioned to Eliquis 5mg BID. Repeat CT head without contrast in 2 weeks (may be done outpatient) and if no intracranial hemorrhage, may add aspirin 81mg daily in addition to Eliquis if indicated for CAD - Goal BP <160/90 for 24 hours from onset of stroke symptoms, followed by slow correction to normotensive blood pressure goal of <130/90. - Keep serum glucoses <180. - Close frequent neuro checks per protocol. Aspiration, seizure, and fall precautions. - Nursing bedside swallow assessment prior to any oral intake. ROUGHENER consult for swallow evaluation if fails nursing bedside swallow evaluation. - PT/OT consults/follow-up. - DVT prophylaxis with SCDs and heparin drip. - Fasting lipid panel with LDL within goal range at 47. Goal LDL <70. Continue atorvastatin at 40mg QHS - HbA1c elevated 13.2%. Recommend improved glycemic control. Goal HbA1c <7.0% - Pending MRI brain without contrast and transthoracic echocardiogram (2) Atrial fibrillation: May continue low dose heparin drip for secondary stroke prevention in setting of paroxysmal atrial fibrillation. Subjective Telehealth Information I performed this visit using a real-time telehealth connection between my location and the patients originating location ([facility]). Patient was unable to provide consent for the telehealth visit due to her aphasia. Subsequent Time Spent with Patient: Subsequent => 25 min Patient was noted to have paroxysmal atrial fibrillation, for which it was recommended by Cardiology that she be started on heparin drip. The primary physician had reached out to me yesterday after my initial telestroke visit with this information. I had recommended discontinuing Plavix and stated that she could receive rectal aspirin and be started on low dose heparin drip, with repeat CT head without contrast to be performed today to rule out hemorrhagic conversion. Patient's blood pressure was also kept in range of goal SBP <160. Repeat CT head without contrast was performed this morning and showed progression of left MCA ischemic stroke in left parietal and temporal region and redemonstrated small area of chronic encephalomalacia from likely chronic stroke in left frontal cortical region. There was no acute hemorrhage noted. Patient continues to be minimally verbal only saying "yes" or "no" but not appropriately in response to questions. Review of Systems Unable to obtain review of systems from patient due to her severe aphasia Physical Exam Mental Status: Awake, alert, oriented x0. Severe global aphasia with only language heard being "yes" and being used inappropriately. Unable to name, repeat, or follow verbal commands. Cranial Nerves: Extraocular movements intact. V1-V3 sensation intact symmetrically to light touch bilaterally. Face grossly symmetric at rest and with activation. Tongue midline without deviation and grossly full strength. Motor: 5/5 strength throughout all extremities symmetrically without drift Sensory: Diminished sensation to noxious stimuli with nailbed pressure in right arm compared to left. Intact sensation to noxious stimuli with nailbed pressure in left arm and symmetrically in both legs. Reflexes: Not assessed Gait: Not assessed Results & Data Vital Signs (Past 12 Hours) Vital Signs Temp Pulse Resp BP Pulse Ox O2 Del Method O2 Flow Rate 02/05/25 08:30 79 18 90 02/05/25 08:30 95/56 L 02/05/25 08:30 95/56 L 02/05/25 08:30 95/56 L 02/05/25 08:30 95/56 L 02/05/25 08:30 95/56 L 02/05/25 08:00 91 H 20 94 Nasal Cannula 2 02/05/25 08:00 112/73 02/05/25 08:00 112/73 02/05/25 08:00 112/73 02/05/25 08:00 112/73 02/05/25 08:00 112/73 02/05/25 07:30 110/75 02/05/25 07:30 110/75 02/05/25 07:30 110/75 02/05/25 07:30 110/75 02/05/25 07:30 110/75 02/05/25 07:30 91 H 22 95 02/05/25 07:00 93 H 24 94 02/05/25 07:00 110/72 02/05/25 07:00 110/72 02/05/25 07:00 110/72 02/05/25 07:00 110/72 02/05/25 07:00 110/72 11/16/25 06:30 117/75 02/05/25 06:30 117/75 02/05/25 06:30 117/75 02/05/25 06:30 90 16 94 02/05/25 06:15 91 H 15 93 02/05/25 06:02 115/77 02/05/25 06:02 115/77 02/05/25 06:02 115/77 02/05/25 06:02 115/77 02/05/25 06:02 115/77 02/05/25 06:00 93 H 24 93 02/05/25 05:57 94 H 20 93 02/05/25 05:30 116/76 02/05/25 05:30 116/76 02/05/25 05:30 116/76 02/05/25 05:30 116/76 02/05/25 05:30 116/76 02/05/25 05:30 90 22 96 02/05/25 05:15 92 H 22 96 02/05/25 05:05 114/73 02/05/25 05:05 114/73 02/05/25 05:05 114/73 02/05/25 05:05 114/73 02/05/25 05:05 114/73 02/05/25 05:03 94 H 24 96 02/05/25 05:00 96 H 22 96 02/05/25 05:00 36.9 C 02/05/25 04:45 94 H 20 98 02/05/25 04:30 84 20 97 02/05/25 04:30 116/79 02/05/25 04:30 116/79 02/05/25 04:30 116/79 02/05/25 04:30 116/79 02/05/25 04:30 116/79 02/05/25 04:15 87 24 97 02/05/25 04:01 116/79 02/05/25 04:01 116/79 02/05/25 04:01 116/79 02/05/25 04:01 116/79 02/05/25 04:01 116/79 02/05/25 04:00 86 21 97 02/05/25 03:45 89 16 98 02/05/25 03:31 86/68 L 02/05/25 03:31 86/68 L 02/05/25 03:31 86/68 L 02/05/25 03:31 86/68 L 02/05/25 03:31 86/68 L 02/05/25 03:30 88 22 96 02/05/25 03:15 91 H 22 95 02/05/25 03:00 69 19 96 02/05/25 03:00 83/65 L 02/05/25 03:00 83/65 L 02/05/25 03:00 83/65 L 02/05/25 03:00 83/65 L 02/05/25 03:00 83/65 L 02/05/25 02:45 89 21 97 02/05/25 02:30 91 H 23 94 02/05/25 02:30 113/74 02/05/25 02:30 113/74 02/05/25 02:30 113/74 02/05/25 02:30 113/74 02/05/25 02:30 113/74 02/05/25 02:15 89 21 91 02/05/25 02:00 92 H 23 92 02/05/25 02:00 120/79 02/05/25 02:00 120/79 02/05/25 02:00 120/79 02/05/25 02:00 120/79 02/05/25 02:00 120/79 02/05/25 01:45 91 H 21 92 02/05/25 01:30 116/76 02/05/25 01:30 116/76 02/05/25 01:30 116/76 02/05/25 01:30 116/76 02/05/25 01:30 116/76 02/05/25 01:30 92 H 22 91 02/05/25 01:15 77 17 94 02/05/25 01:00 100/72 02/05/25 01:00 100/72 02/05/25 01:00 100/72 02/05/25 01:00 100/72 02/05/25 01:00 100/72 02/05/25 01:00 71 21 92 02/05/25 01:00 36.9 C 02/05/25 00:45 74 02/05/25 00:30 71 21 92 02/05/25 00:30 96/66 L 02/05/25 00:30 96/66 L 02/05/25 00:30 96/66 L 02/05/25 00:30 96/66 L 02/05/25 00:30 96/66 L 02/05/25 00:15 72 23 90 02/05/25 00:00 104/65 02/05/25 00:00 73 02/05/25 00:00 75 24 90 02/05/25 00:00 104/65 02/05/25 00:00 104/65 02/05/25 00:00 104/65 02/05/25 00:00 104/65 02/04/25 23:45 73 22 94 02/04/25 23:30 73 23 91 02/04/25 23:30 99/63 L 02/04/25 23:30 99/63 L 02/04/25 23:30 99/63 L 02/04/25 23:30 99/63 L 02/04/25 23:30 99/63 L 02/04/25 23:29 37.7 C H 02/04/25 23:09 103/66 02/04/25 23:09 103/66 02/04/25 23:09 103/66 02/04/25 23:09 103/66 02/04/25 23:09 103/66 02/04/25 23:09 75 23 95 02/04/25 23:00 97/64 L 02/04/25 23:00 97/64 L 02/04/25 23:00 97/64 L 02/04/25 23:00 97/64 L 02/04/25 23:00 97/64 L 02/04/25 23:00 75 24 91 02/04/25 22:30 75 24 91 02/04/25 22:30 91/63 L 02/04/25 22:30 91/63 L 02/04/25 22:30 91/63 L 02/04/25 22:30 91/63 L 02/04/25 22:30 91/63 L 02/04/25 22:00 77 23 95 02/04/25 22:00 109/64 02/04/25 22:00 109/64 02/04/25 22:00 109/64 02/04/25 22:00 109/64 02/04/25 22:00 109/64 02/04/25 21:45 79 22 91 02/04/25 21:30 92/64 L 02/04/25 21:30 92/64 L 02/04/25 21:30 92/64 L 02/04/25 21:30 92/64 L 02/04/25 21:30 92/64 L 02/04/25 21:30 80 17 90 02/04/25 21:15 82 17 [address] 02/04/25 15:30 EXAM: Head CT without contrast and CT angiogram of the head and neck. History: Neurodeficit. Evaluate for acute stroke. Comparison: None. Technique: HEAD CT: Using multidetector thin collimation helical acquisition technique, axial, coronal and sagittal CT images from the skull base to the vertex were obtained without intravenous contrast. HEAD and NECK CTA: During rapid bolus intravenous injection of nonionic contrast material, axial images were obtained using thin collimation multidetector helical technique from the base of the neck through the of vertex of the head. This CT angiogram data was reconstructed at thin intervals with mild overlap. 3D reconstructions were obtained. The axial source images, multiplanar reformations, 3D reconstructions in both maximum intensity projection display and volume rendered models were reviewed. Dose reduction techniques were achieved by using automatic exposure control and/or adjustment of mA and/or kV according to patient size and/or use of iterative reconstruction technique. FINDINGS: [employer] film demonstrates no abnormality. Brain windows demonstrate focal area of absent barrios-white matter differentiation posterior left frontal lobe. Additional similar findings to a greater extent involving the posterior temporal and inferior left parietal lobe with effacement of the sulci5. No appreciated hemorrhage. Basal cisterns are patent. No midline shift. Lung windows demonstrate clear included pulmonary apices. Soft tissue windows demonstrate partially included least small left pleural effusion. Vascular windows demonstrate bilateral V4 segments to be patent. Bilateral posterior inferior cerebral arteries are patent. Basilar artery is patent. Bilateral posterior cerebral arteries are patent. Dense calcified atherosclerotic changes bilateral cavernous sinus internal carotid arteries. There is absence of flow involving portions of the right cavernous sinus internal carotid artery. There appears to be collateral filling of the distal internal carotid artery at this level. Anterior communicating artery and anterior cerebral arteries are patent. Diminished cortical vessels of the left posterior temporal infra parietal region. Left middle cerebral arteries otherwise appear to be patent. Right middle cerebral arteries are patent. Bilateral posterior communicating arteries are patent. Normal variant origin left vertebral artery off the aorta. Dominant right vertebral artery. Bilateral vertebral arteries are patent. Dense calcified atherosclerotic changes bilateral carotid bulbs. Approximately 50% diameter stenosis on the left. Left common carotid, internal carotid external carotid arteries are otherwise patent. Right common carotid artery is patent. Right external carotid artery is patent. There is absence of flow shortly after takeoff of the right terminal carotid artery. This extends to the level of the distal cavernous internal carotid artery sinus. Calcified atherosclerotic disease bilateral cavernous sinus internal carotid arteries with at least 50% diameter stenoses. Although limited due to bolus timing major dural venous sinuses are patent. Diminished enhancement at the above-described regions of hypoattenuation. Bone windows demonstrate likely mucous retention cysts left maxillary sinus. Degenerative changes of the cervical spine. Impression: 1. Focal attenuation changes posterior left frontal and posterior temporal and parietal regions most worrisome for acute infarcts. Posterior frontal region may be subacute in chronicity. No appreciated hemorrhage. 2. Occlusion of the right internal carotid artery shortly after its origin extending to the level of the supraclinoid segment. There appears to be collateral filling at this level. Dense calcified atheromatous plaque bilateral carotid bulbs with approximately 50% diameter stenoses at these levels. Additional dense atheromatous plaque bilateral cavernous sinus internal carotid arteries with at least 50% diameter stenoses. 3. Remaining systemic neck vasculature is patent. 4. Diminished cortical vessels and enhancement at the level of the above-described regions of suspected ischemia. Remaining intracranial systemic vasculature is otherwise patent. Please see above for details. These critical results were communicated with the ER physician on February 04, 2025 at 1500 hrs. Central standard time. The study was analyzed using artificial intelligence software for large vessel occlusion detection. Electronically signed by Audi Ellis 02-04-2025 4:11 PM Head CTA 02/04/25 15:30 EXAM: Head CT without contrast and CT angiogram of the head and neck. History: Neurodeficit. Evaluate for acute stroke. Comparison: None. Technique: HEAD CT: Using multidetector thin collimation helical acquisition technique, axial, coronal and sagittal CT images from the skull base to the vertex were obtained without intravenous contrast. HEAD and NECK CTA: During rapid bolus intravenous injection of nonionic contrast material, axial images were obtained using thin collimation multidetector helical technique from the base of the neck through the of vertex of the head. This CT angiogram data was reconstructed at thin intervals with mild overlap. 3D reconstructions were obtained. The axial source images, multiplanar reformations, 3D reconstructions in both maximum intensity projection display and volume rendered models were reviewed. Dose reduction techniques were achieved by using automatic exposure control and/or adjustment of mA and/or kV according to patient size and/or use of iterative reconstruction technique. FINDINGS: [employer] film demonstrates no abnormality. Brain windows demonstrate focal area of absent barrios-white matter differentiation posterior left frontal lobe. Additional similar findings to a greater extent involving the posterior temporal and inferior left parietal lobe with effacement of the sulci5. No appreciated hemorrhage. Basal cisterns are patent. No midline shift. Lung windows demonstrate clear included pulmonary apices. Soft tissue windows demonstrate partially included least small left pleural effusion. Vascular windows demonstrate bilateral V4 segments to be patent. Bilateral posterior inferior cerebral arteries are patent. Basilar artery is patent. Bilateral posterior cerebral arteries are patent. Dense calcified atherosclerotic changes bilateral cavernous sinus internal carotid arteries. There is absence of flow involving portions of the right cavernous sinus internal carotid artery. There appears to be collateral filling of the distal internal carotid artery at this level. Anterior communicating artery and anterior cerebral arteries are patent. Diminished cortical vessels of the left posterior temporal infra parietal region. Left middle cerebral arteries otherwise appear to be patent. Right middle cerebral arteries are patent. Bilateral posterior communicating arteries are patent. Normal variant origin left vertebral artery off the aorta. Dominant right vertebral artery. Bilateral vertebral arteries are patent. Dense calcified atherosclerotic changes bilateral carotid bulbs. Approximately 50% diameter stenosis on the left. Left common carotid, internal carotid external carotid arteries are otherwise patent. Right common carotid artery is patent. Right external carotid artery is patent. There is absence of flow shortly after takeoff of the right terminal carotid artery. This extends to the level of the distal cavernous internal carotid artery sinus. Calcified atherosclerotic disease bilateral cavernous sinus internal carotid arteries with at least 50% diameter stenoses. Although limited due to bolus timing major dural venous sinuses are patent. Diminished enhancement at the above-described regions of hypoattenuation. Bone windows demonstrate likely mucous retention cysts left maxillary sinus. Degenerative changes of the cervical spine. Impression: 1. Focal attenuation changes posterior left frontal and posterior temporal and parietal regions most worrisome for acute infarcts. Posterior frontal region may be subacute in chronicity. No appreciated hemorrhage. 2. Occlusion of the right internal carotid artery shortly after its origin extending to the level of the supraclinoid segment. There appears to be collateral filling at this level. Dense calcified atheromatous plaque bilateral carotid bulbs with approximately 50% diameter stenoses at these levels. Additional dense atheromatous plaque bilateral cavernous sinus internal carotid arteries with at least 50% diameter stenoses. 3. Remaining systemic neck vasculature is patent. 4. Diminished cortical vessels and enhancement at the level of the above-described regions of suspected ischemia. Remaining intracranial systemic vasculature is otherwise patent. Please see above for details. These critical results were communicated with the ER physician on February 04, 2025 at 1500 hrs. Central standard time. The study was analyzed using artificial intelligence software for large vessel occlusion detection. Electronically signed by Audi Ellis 02-04-2025 4:10 PM Neck CTA 02/04/25 15:30 EXAM: Head CT without contrast and CT angiogram of the head and neck. History: Neurodeficit. Evaluate for acute stroke. Comparison: None. Technique: HEAD CT: Using multidetector thin collimation helical acquisition technique, axial, coronal and sagittal CT images from the skull base to the vertex were obtained without intravenous contrast. HEAD and NECK CTA: During rapid bolus intravenous injection of nonionic contrast material, axial images were obtained using thin collimation multidetector helical technique from the base of the neck through the of vertex of the head. This CT angiogram data was reconstructed at thin intervals with mild overlap. 3D reconstructions were obtained. The axial source images, multiplanar reformations, 3D reconstructions in both maximum intensity projection display and volume rendered models were reviewed. Dose reduction techniques were achieved by using automatic exposure control and/or adjustment of mA and/or kV according to patient size and/or use of iterative reconstruction technique. FINDINGS: [employer] film demonstrates no abnormality. Brain windows demonstrate focal area of absent barrios-white matter differentiation posterior left frontal lobe. Additional similar findings to a greater extent involving the posterior temporal and inferior left parietal lobe with effacement of the sulci5. No appreciated hemorrhage. Basal cisterns are patent. No midline shift. Lung windows demonstrate clear included pulmonary apices. Soft tissue windows demonstrate partially included least small left pleural effusion. Vascular windows demonstrate bilateral V4 segments to be patent. Bilateral posterior inferior cerebral arteries are patent. Basilar artery is patent. Bilateral posterior cerebral arteries are patent. Dense calcified atherosclerotic changes bilateral cavernous sinus internal carotid arteries. There is absence of flow involving portions of the right cavernous sinus internal carotid artery. There appears to be collateral filling of the distal internal carotid artery at this level. Anterior communicating artery and anterior cerebral arteries are patent. Diminished cortical vessels of the left posterior temporal infra parietal region. Left middle cerebral arteries otherwise appear to be patent. Right middle cerebral arteries are patent. Bilateral posterior communicating arteries are patent. Normal variant origin left vertebral artery off the aorta. Dominant right vertebral artery. Bilateral vertebral arteries are patent. Dense calcified atherosclerotic changes bilateral carotid bulbs. Approximately 50% diameter stenosis on the left. Left common carotid, internal carotid external carotid arteries are otherwise patent. Right common carotid artery is patent. Right external carotid artery is patent. There is absence of flow shortly after takeoff of the right terminal carotid artery. This extends to the level of the distal cavernous internal carotid artery sinus. Calcified atherosclerotic disease bilateral cavernous sinus internal carotid arteries with at least 50% diameter stenoses. Although limited due to bolus timing major dural venous sinuses are patent. Diminished enhancement at the above-described regions of hypoattenuation. Bone windows demonstrate likely mucous retention cysts left maxillary sinus. Degenerative changes of the cervical spine. Impression: 1. Focal attenuation changes posterior left frontal and posterior temporal and parietal regions most worrisome for acute infarcts. Posterior frontal region may be subacute in chronicity. No appreciated hemorrhage. 2. Occlusion of the right internal carotid artery shortly after its origin extending to the level of the supraclinoid segment. There appears to be collateral filling at this level. Dense calcified atheromatous plaque bilateral carotid bulbs with approximately 50% diameter stenoses at these levels. Additional dense atheromatous plaque bilateral cavernous sinus internal carotid arteries with at least 50% diameter stenoses. 3. Remaining systemic neck vasculature is patent. 4. Diminished cortical vessels and enhancement at the level of the above-described regions of suspected ischemia. Remaining intracranial systemic vasculature is otherwise patent. Please see above for details. These critical results were communicated with the ER physician on February 04, 2025 at 1500 hrs. Central standard time. The study was analyzed using artificial intelligence software for large vessel occlusion detection. Electronically signed by Audi Ellis 02-04-2025 4:[address] 02/05/25 06:00 EXAM: CT head/brain wo con CLINICAL HISTORY: Large stroke. TECHNIQUE: Axial non-contrast CT scan of the brain was performed from the skull base to the high parietal region in axial, sagittal and coronal reconstructions. One of the following dose reduction techniques were utilized for this exam: Automated exposure control, adjustment of the mA and/or kV according to patient size, use of iterative reconstruction. COMPARISON: Comparison with the previous CT study dated 02/04/2025. FINDINGS: Brain Parenchyma: Now well-established hypodense, ill-defined cortical and subcortical area noted at the left parietal and temporal region representing acute infarct Still noted a faint hypodense area at the left frontal region with no edema around or exerting mass effect. Normal attenuation of the cerebellum and brainstem. No evidence of hemorrhage or mass effect. No abnormal areas of hyperattenuation. Ventricular System: Ventricles are normal in size and configuration. No evidence of hydrocephalus or ventricular enlargement. Subarachnoid Spaces: Normal sulci and cisterns. No evidence of subarachnoid hemorrhage or extra-axial fluid collections. A partial empty sella noted. Cerebellum and Brainstem: No masses, lesions, or areas of abnormal density. Orbits: Normal appearance of the globes, optic nerves, and extraocular muscles. No evidence of orbital masses or abnormal density. Sinuses: Bilateral maxillary sinusitis with left side maxillary mucous retention cyst formation. Mastoid Air Cells: Clear mastoid air cells. No evidence of mastoiditis. Skull: Normal skull morphology. IMPRESSION: 1. Mild progressive course of the previously noted hypodense, ill-defined cortical and subcortical area noted at the left parietal and temporal regions, denoting now well-established acute infarction related to left MCA terriorty to be clincial assessment. No definite hemorrhage seen . Further evaluation by MRI if clinically needed. 2. Still noted a small hypodense area at the left frontal region with no edema around or exerting mass effect, likely old vascular insult with encephalomalacia formation. Electronically signed by Layo Mckeon 02-05-2025 08:22 AM (2) Atrial fibrillation Atrial fibrillation type: paroxysmal Qualified Code(s): I48.0 - Paroxysmal atrial fibrillation
[2025-02-05 09:11] LABS: Anion Gap 15.0 (3-11); Calcium 8.3 mg/dl (8.6-10.3); Carbon Dioxide 18.0 mmol/L (21-32); Chloride 104.0 mmol/L (98-107); Potassium 3.9 mmol/L (3.5-5.1); Sodium 137.0 mmol/L (136-145)
[2025-02-05 09:17] LABS: Blood Urea Nitrogen 27.0 mg/dl (6-23); Creatinine Clr Calc Pharmacy 59.5 ml/min; Glucose 118.0 mg/dl (70-99(Fasting))
[2025-02-05 09:24] LABS: Magnesium 2.3 mg/dl (1.7-2.4)
--- NOTE | 2025-02-05 10:13 | XCELERA ---
[id number]
[2025-02-05] MEDS: ICU ELECTROLYTE REPLACEMENT PROTOCOL SCH (10:17)
[2025-02-05] MEDS: LACTATED RINGER'S 1,000 ML IV SCH (10:19)
--- NOTE | 2025-02-05 10:25 | Hospitalist Progress Note ---
Date of Service February 05, 2025 Assessment & Plan (1) Stroke: Plan: Acute ischemic CVA in the left MCA distribution with associated aphasia and right hemiplegia. She is currently on a heparin drip. Appreciate neurology assistance. Brain MRI scan is pending. (2) STEMI (ST elevation myocardial infarction): Plan: Troponin is now greater than 7000. Cardiac echo report is pending. Telemetry. Cardiology consultation ordered and pending. (3) Atrial fibrillation: Plan: Prior atrial fibrillation noted during last admission. She was not discharged on AC due to history of GI bleeding. The plan had been to get GI clearance, then start AC, but that does not appear to have happened. Rate is currently controlled. She is on a heparin drip. Continue telemetry. IV metoprolol ordered as needed (4) Benign essential hypertension: Plan: Currently acceptable. Will allow mild to moderate hypertension for now. (5) Coronary artery disease: Plan: Prior LHC in 05/2024 with diffuse CAD. Currently on heparin drip. Medical management. Await cardiology consultation and recommendations. Telemetry (6) DKA (diabetic ketoacidosis): Plan: Mild AG on presentation of 12. However, blood sugar only 209. Doubt presence of full-blown DKA on admission. [id number] glucose 112 this morning, February 05. Continue sliding scale coverage. Currently n.p.o. (7) Carotid artery occlusion: Plan: Right-sided. Noted on CTA neck on 02/04/2025. With collateral reconstitution on the CT. currently on a heparin drip. Vascular surgery consultation pending. (8) Hyponatremia: Plan: Mild on admission. Partly due to hyperglycemia. No intervention necessary at this time. Will follow (9) CKD (chronic kidney disease) stage 3, GFR 30-59 ml/min: Plan: Stable. Monitor intake and output. Serial labs Plan She will need rehab at discharge. OT and PT assessments when appropriate Admission and Anticipated Discharge Date Admission Date: February 04, 2025 Subjective Awake and alert in no acute distress but aphasic due to the acute CVA. She has a right hemiplegia in addition. She is on a heparin drip and currently NPO. Brain MRI scan is pending. Cardiac echo report is pending. Hemoglobin A1c is 13.2. She appears to have suffered an acute ND with troponin greater than 7000. Cardiology consultation ordered and pending. She also has completely occluded right internal carotid artery imaging studies. Vascular surgery consultation requested and pending. Critical care physician management for now until she moves out of the ICU. Review of Systems 2 Review of Systems: The patient is aphasic and cannot answer any questions regarding review of systems at this time Physical Exam 2 Physical Exam: General-alert, appears to be oriented. No fever. Aphasic however HEENT-head atraumatic and normocephalic, pupils equal and reactive to light, extraocular muscles intact Neck-no lymphadenopathy or thyromegaly, trachea midline Chest-clear to auscultation. No rales, wheezing or rhonchi Cardiac-regular rate and rhythm, normal S1 and S2 Abdomen-normal bowel sounds, no hepatosplenomegaly Extremities-no cyanosis, clubbing, or edema Neuro-cranial nerves II through XII intact, right hemiplegia noted from acute ischemic CVA. She is aphasic. Psych-cannot assess Results & Data Results & Data Vital Signs (Past 12 Hours) Vital Signs Temp Pulse Resp BP Pulse Ox O2 Del Method O2 Flow Rate 02/05/25 08:30 79 18 90 02/05/25 08:30 95/56 L 02/05/25 08:30 95/56 L 02/05/25 08:30 95/56 L 02/05/25 08:30 95/56 L 02/05/25 08:30 95/56 L 02/05/25 08:00 91 H 20 94 Nasal Cannula 2 02/05/25 08:00 112/73 02/05/25 08:00 112/73 02/05/25 08:00 112/73 02/05/25 08:00 112/73 02/05/25 08:00 112/73 02/05/25 07:30 110/75 02/05/25 07:30 110/75 02/05/25 07:30 110/75 02/05/25 07:30 110/75 02/05/25 07:30 110/75 02/05/25 07:30 91 H 22 95 02/05/25 07:00 93 H 24 94 02/05/25 07:00 110/72 02/05/25 07:00 110/72 02/05/25 07:00 110/72 02/05/25 07:00 110/72 02/05/25 07:00 110/72 02/05/25 06:30 117/75 02/05/25 06:30 117/75 02/05/25 06:30 117/75 02/05/25 06:30 90 16 94 02/05/25 06:15 91 H 15 93 02/05/25 06:02 115/77 02/05/25 06:02 115/77 02/05/25 06:02 115/77 02/05/25 06:02 115/77 02/05/25 06:02 115/77 02/05/25 06:00 93 H 24 93 02/05/25 05:57 94 H 20 93 02/05/25 05:30 116/76 02/05/25 05:30 116/76 02/05/25 05:30 116/76 02/05/25 05:30 116/76 02/05/25 05:30 116/76 02/05/25 05:30 90 22 96 02/05/25 05:15 92 H 22 96 02/05/25 05:05 114/73 02/05/25 05:05 114/73 02/05/25 05:05 114/73 02/05/25 05:05 114/73 02/05/25 05:05 114/73 02/05/25 05:03 94 H 24 96 02/05/25 05:00 96 H 22 96 02/05/25 05:00 36.9 C 02/05/25 04:45 94 H 20 98 02/05/25 04:30 84 20 97 02/05/25 04:30 116/79 02/05/25 04:30 116/79 02/05/25 04:30 116/79 02/05/25 04:30 116/79 02/05/25 04:30 116/79 02/05/25 04:15 87 24 97 02/05/25 04:01 116/79 02/05/25 04:01 116/79 02/05/25 04:01 116/79 02/05/25 04:01 116/79 02/05/25 04:01 116/79 02/05/25 04:00 86 21 97 02/05/25 03:45 89 16 98 02/05/25 03:31 86/68 L 02/05/25 03:31 86/68 L 02/05/25 03:31 86/68 L 02/05/25 03:31 86/68 L 02/05/25 03:31 86/68 L 02/05/25 03:30 88 22 96 02/05/25 03:15 91 H 22 95 02/05/25 03:00 69 19 96 02/05/25 03:00 83/65 L 02/05/25 03:00 83/65 L 02/05/25 03:00 83/65 L 02/05/25 03:00 83/65 L 02/05/25 03:00 83/65 L 02/05/25 02:45 89 21 97 02/05/25 02:30 91 H 23 94 02/05/25 02:30 113/74 02/05/25 02:30 113/74 02/05/25 02:30 113/74 02/05/25 02:30 113/74 02/05/25 02:30 113/74 02/05/25 02:15 89 21 91 02/05/25 02:00 92 H 23 92 02/05/25 02:00 120/79 02/05/25 02:00 120/79 02/05/25 02:00 120/79 02/05/25 02:00 120/79 02/05/25 02:00 120/79 02/05/25 01:45 91 H 21 92 02/05/25 01:30 116/76 02/05/25 01:30 116/76 02/05/25 01:30 116/76 02/05/25 01:30 116/76 02/05/25 01:30 116/76 02/05/25 01:30 92 H 22 91 02/05/25 01:15 77 17 94 02/05/25 01:00 100/72 02/05/25 01:00 100/72 02/05/25 01:00 100/72 02/05/25 01:00 100/72 02/05/25 01:00 100/72 02/05/25 01:00 71 21 92 02/05/25 01:00 36.9 C 02/05/25 00:45 74 02/05/25 00:30 71 21 92 02/05/25 00:30 96/66 L 02/05/25 00:30 96/66 L 02/05/25 00:30 96/66 L 02/05/25 00:30 96/66 L 02/05/25 00:30 96/66 L 02/05/25 00:15 72 23 90 02/05/25 00:00 104/65 02/05/25 00:00 73 02/05/25 00:00 75 24 90 02/05/25 00:00 104/65 02/05/25 00:00 104/65 02/05/25 00:00 104/65 02/05/25 00:00 104/65 02/04/25 23:45 73 22 94 02/04/25 23:30 73 23 91 02/04/25 23:30 99/63 L 02/04/25 23:30 99/63 L 02/04/25 23:30 99/63 L 02/04/25 23:30 99/63 L 02/04/25 23:30 99/63 L 02/04/25 23:29 37.7 C H 02/04/25 23:09 103/66 02/04/25 23:09 103/66 02/04/25 23:09 103/66 02/04/25 23:09 103/66 02/04/25 23:09 103/66 02/04/25 23:09 75 23 95 02/04/25 23:00 97/64 L 02/04/25 23:00 97/64 L 02/04/25 23:00 97/64 L 02/04/25 23:00 97/64 L 02/04/25 23:00 97/64 L 02/04/25 23:00 75 24 91 02/04/25 22:30 75 24 91 02/04/25 22:30 91/63 L 02/04/25 22:30 91/63 L 02/04/25 22:30 91/63 L 02/04/25 22:30 91/63 L 02/04/25 22:30 91/63 L Laboratory Results 02/05/25 03:07 02/05/25 03:07 PG Care Time/CCT Total # of Minutes Spent Total Time Spent with Patient: Total time spent is greater than 50% in coordination of care (as documented) at patient's floor/unit and/or counseling patient: Coding Level of Care Code 06574 SUB INP/OBS CARE 2/35MIN Diagnoses Cerebrovascular accident (CVA) due to embolism of left middle cerebral artery I63.412 CVA mechanism: embolism Laterality of affected vessel: left Precerebral and cerebral artery: middle cerebral artery ST elevation myocardial infarction (STEMI) involving other coronary artery of inferior wall I21.19 Involved coronary artery: other inferior wall coronary artery Paroxysmal atrial fibrillation I48.0 Atrial fibrillation type: paroxysmal Benign essential hypertension I10 Coronary artery disease involving [place] coronary artery of [place] heart, unspecified whether angina present I25.10 Coronary Disease-Associated Artery/Lesion type: [place] artery [place] vs. transplanted heart: [place] heart Associated angina: unspecified whether angina present Diabetic ketoacidosis without coma associated with type 2 diabetes mellitus E11.10 Diabetes mellitus complication detail: without coma Diabetes mellitus type: type 2 Occlusion of right carotid artery I65.21 Laterality: right Hyponatremia E87.1 CKD (chronic kidney disease) stage 3, GFR 30-59 ml/min N18.30 (1) Stroke CVA mechanism: embolism Laterality of affected vessel: left Precerebral and cerebral artery: middle cerebral artery Qualified Code(s): I63.412 - Cerebral infarction due to embolism of left middle cerebral artery (2) STEMI (ST elevation myocardial infarction) Involved coronary artery: other inferior wall coronary artery Qualified Code(s): I21.19 - ST elevation (STEMI) myocardial infarction involving other coronary artery of inferior wall (3) Atrial fibrillation Atrial fibrillation type: paroxysmal Qualified Code(s): I48.0 - Paroxysmal atrial fibrillation (5) Coronary artery disease Coronary Disease-Associated Artery/Lesion type: [place] artery [place] vs. transplanted heart: [place] heart Associated angina: unspecified whether angina present Qualified Code(s): I25.10 - Atherosclerotic heart disease of [place] coronary artery without angina pectoris (6) DKA (diabetic ketoacidosis) Diabetes mellitus complication detail: without coma Diabetes mellitus type: t ype 2 Qualified Code(s): E11.10 - Type 2 diabetes mellitus with ketoacidosis without coma (7) Carotid artery occlusion Laterality: right Qualified Code(s): I65.21 - Occlusion and stenosis of right carotid artery
--- NOTE | 2025-02-05 10:34 | Critical Care Progress Note ---
Date of Service February 05, 2025 Assessment & Plan (1) Ischemic cerebrovascular accident (CVA): (2) STEMI (ST elevation myocardial infarction): (3) PAF (paroxysmal atrial fibrillation): (4) Carotid artery occlusion: (5) Hyponatremia: (6) CKD (chronic kidney disease) stage 3, GFR 30-59 ml/min: (7) Leukocytosis: (8) Coronary artery disease: (9) Uncontrolled type 2 diabetes mellitus with hyperglycemia: Plan Reason Critically Ill: 1. Acute ischemic stroke, frontal, temporal, and parietal, likely embolic in origin 2. Paroxysmal atrial fibrillation 3. R ICA occlusion, chronic 4. STEMI, demand vs. primary ACS 5. Uncontrolled DMII (13.2% 01/2025) 6. Medical non-compliance 7. Leukocytosis with neutrophil predominance, stress-mediated 8. Mixed acidosis 9. Hyperglycemia Neuro - [facility] ICU: Negative RASS GOAL 0 Close neurologic checks per protocol No evidence of hemorrhage on CT or MRI today Aspiration, seizure, and fall precautions. Cardiac - STEMI; high risk for cath on presentation Multiple non-intervenable coronary stenoses on cath May 2024 Low-dose Heparin to be transitioned to Eliquis when taking PO Keep off of Aspirin at least until absence of hemorrhage ruled out on CT in 2 weeks (to be added to Eliquis if indicated for CAD) Goal BP <160/90 for 24 hours from onset of stroke symptoms, followed by slow correction to normotensive blood pressure goal of <130/90. Mild concentric LVH with akinesis of posterolateral wall; moderate mitral regurgitation. No interatrial shunt. Respiratory - HOB 30, aspiration precautions SpO2 goal > 92% Saturating well on room air IS/Flutter as clinically feasible GI - No acute concerns Diet: Strict NPO DISTRIBUTION ASSOCIATE consult, appreciate recommendations SUP: IV PPI with h/o esophagitis Bowel regimen: Start when taking PO RENAL/LYTES - Renal indices at baseline Replete electrolytes as indicated Bladder scan with retained urine. Will insert Roland catheter ENDO - Mild ketosis probably secondary to Jardiance in patient with DM2 BG 140-180 per [facility] guidelines Fasting lipid panel with LDL within goal range at 47. Goal LDL <70. Continue atorvastatin at 40mg QHS when taking PO HbA1c elevated 13.2%. HEME - Low dose heparin infusion ID - No acute concerns Positive nitrite with no significant WBCs in urine Stop empiric antibiotics. Procalcitonin WNL. No clinical signs of infection MRSA nares pending. Does have history of MRSA PNA LINES/TUBES/DRAINS - PIV x2 DVT PROPHYLAXIS - Heparin infusion CODE STATUS - FULL DISPOSITION - ICU I have personally spent 55 minutes of critical care time in the direct management of this patient. This is a life/limb threatening event. This includes time spent evaluating patient, direct bedside care, chart review, placing orders, interpretation of diagnostic studies, discussion with consultants, patient, and family members, as well as other required patient management activities. This time is exclusive of all separately billable procedures, and teaching time and separate from and in addition to any other critical care service time. Admission and Anticipated Discharge Date Admission Date: February 04, 2025 Subjective The patient is a very pleasant 64-year-old female who presented to the ED with altered mental status and stroke-like symptoms. Her reported that she had been feeling unwell for several days prior, with complaints of left-sided neck pain, increased somnolence, and confusion. On the morning of presentation, she was noted to be aphasic and not acting like herself, prompting her family to bring her to the hospital. In the ED, she was found to be alert but aphasic, providing only sporadic, random words in response to questions. On examination, she was tachycardic, with blood pressures generally in the 120s/80s, and saturating well on room air. Neurologically, she was awake but confused, with expressive aphasia, bilateral pronator drift, and abnormal [id number] testing. There were no focal motor deficits or facial droop. Imaging with CT and CTA of the head and neck revealed acute infarcts in the posterior left frontal, temporal, and parietal regions, with no hemorrhage, and there was occlusion of the right internal carotid artery with collateral flow. There was evidence of dense, calcified atherosclerotic disease bilaterally, with approximately 50% stenosis at the carotid bulbs. Cardiac monitoring and EKGs showed sinus tachycardia with ST elevations in the lateral leads and ST depressions in V1-V3, concerning for STEMI. Troponin was markedly elevated. She transitioned from sinus rhythm to atrial fibrillation while in the ED. Laboratory studies were notable for leukocytosis with neutrophil predominance, hyponatremia (Na 129), hyperglycemia (glucose 209), mild anion gap metabolic acidosis, and abnormal renal function (Cr 1.26, eGFR ?48). She was also noted to have anemia and hypoalbuminemia. The patient was admitted to the ICU for close neurologic and cardiac monitoring. She was started on low-dose, non-bolus heparin infusion, and aspirin per rectum, with clopidogrel held due to high risk of hemorrhagic conversion. Blood glucose was managed with insulin. She was kept NPO pending DISTRIBUTION ASSOCIATE evaluation, and a bowel regimen was planned once she resumed oral intake. Repeat neuroimaging was scheduled to monitor for hemorrhagic transformation. Her past medical history included: anemia, PAD, sepsis, osteoporosis, hypertension, neuropathy, DM, atrial fibrillation (paroxysmal), coronary artery disease, prior NSTEMI and STEMI, DKA, metabolic encephalopathy, MRSA pneumonia, osteomyelitis of the right foot, wound of the right foot, and dyslipidemia. Note from 02/05/2025: Patient remains practically aphasic, receptive and expressive: only words are yea and yes, but occasionally used inappropriately. Currently difficult to ascertain swallowing due to patient not responding to commands. See by Neurology this am. Low-dose Heparin being continued. Aspirin being held due to concern about potential for hemorrhagic-transformation in patient with suspected embolic stroke. Review of Systems Review of Systems: Other Patient aphasic. Physical Exam Physical Exam: General: In no acute distress, breathing room-air. Skin: Warm and dry to touch. Noobvious lesions. Eyes: Anicteric.Noconjunctival hyperemia or exudates.No periorbital edema. ENT: Unable to examine. Neck: No palpable masses or adenopathy. Respiratory: Normal breath sounds, no wheezing or crackles. No use of accessory muscles and no prolonged exhalation. Cardiac: Distant sounds, regular rhythm, no murmurs, no gallops, no rubs; could not appreciate JV pulse elevation. GI: Soft, nontender. Extremities No clubbing,no cyanosis,no edema. Surgical-absence of right middle toe. Neuro: Patient awake and alert, but only response from her are yea and yes, occasionally inappropriately (would say yes about feeling touch even when not touched). No facial asymmetry at rest. (full neurologic exam by Dr. Chi this am). Results & Data Results & Data Vital Signs (Past 12 Hours) Vital Signs Temp Pulse Resp BP Pulse Ox O2 Del Method O2 Flow Rate 02/05/25 08:30 79 18 90 02/05/25 08:30 95/56 L 02/05/25 08:30 95/56 L 02/05/25 08:30 95/56 L 02/05/25 08:30 95/56 L 02/05/25 08:30 95/56 L 02/05/25 08:00 91 H 20 94 Nasal Cannula 2 02/05/25 08:00 112/73 02/05/25 08:00 112/73 02/05/25 08:00 112/73 02/05/25 08:00 112/73 02/05/25 08:00 112/73 02/05/25 07:30 110/75 02/05/25 07:30 110/75 02/05/25 07:30 110/75 02/05/25 07:30 110/75 02/05/25 07:30 110/75 02/05/25 07:30 91 H 22 95 02/05/25 07:00 93 H 24 94 02/05/25 07:00 110/72 02/05/25 07:00 110/72 02/05/25 07:00 110/72 02/05/25 07:00 110/72 02/05/25 07:00 110/72 02/05/25 06:30 117/75 02/05/25 06:30 117/75 02/05/25 06:30 117/75 02/05/25 06:30 90 16 94 02/05/25 06:15 91 H 15 93 02/05/25 06:02 115/77 02/05/25 06:02 115/77 02/05/25 06:02 115/77 02/05/25 06:02 115/77 02/05/25 06:02 115/77 02/05/25 06:00 93 H 24 93 02/05/25 05:57 94 H 20 93 02/05/25 05:30 116/76 02/05/25 05:30 116/76 02/05/25 05:30 116/76 02/05/25 05:30 116/76 02/05/25 05:30 116/76 02/05/25 05:30 90 22 96 02/05/25 05:15 92 H 22 96 02/05/25 05:05 114/73 02/05/25 05:05 114/73 02/05/25 05:05 114/73 02/05/25 05:05 114/73 02/05/25 05:05 114/73 02/05/25 05:03 94 H 24 96 02/05/25 05:00 96 H 22 96 02/05/25 05:00 36.9 C 02/05/25 04:45 94 H 20 98 02/05/25 04:30 84 20 97 02/05/25 04:30 116/79 02/05/25 04:30 116/79 02/05/25 04:30 116/79 02/05/25 04:30 116/79 02/05/25 04:30 116/79 02/05/25 04:15 87 24 97 02/05/25 04:01 116/79 02/05/25 04:01 116/79 02/05/25 04:01 116/79 02/05/25 04:01 116/79 02/05/25 04:01 116/79 02/05/25 04:00 86 21 97 02/05/25 03:45 89 16 98 02/05/25 03:31 86/68 L 02/05/25 03:31 86/68 L 02/05/25 03:31 86/68 L 02/05/25 03:31 86/68 L 02/05/25 03:31 86/68 L 02/05/25 03:30 88 22 96 02/05/25 03:15 91 H 22 95 02/05/25 03:00 69 19 96 02/05/25 03:00 83/65 L 02/05/25 03:00 83/65 L 02/05/25 03:00 83/65 L 02/05/25 03:00 83/65 L 02/05/25 03:00 83/65 L 02/05/25 02:45 89 21 97 02/05/25 02:30 91 H 23 94 02/05/25 02:30 113/74 02/05/25 02:30 113/74 02/05/25 02:30 113/74 02/05/25 02:30 113/74 02/05/25 02:30 113/74 02/05/25 02:15 89 21 91 02/05/25 02:00 92 H 23 92 02/05/25 02:00 120/79 02/05/25 02:00 120/79 02/05/25 02:00 120/79 02/05/25 02:00 120/79 02/05/25 02:00 120/79 02/05/25 01:45 91 H 21 92 02/05/25 01:30 116/76 02/05/25 01:30 116/76 02/05/25 01:30 116/76 02/05/25 01:30 116/76 02/05/25 01:30 116/76 02/05/25 01:30 92 H 22 91 02/05/25 01:15 77 17 94 02/05/25 01:00 100/72 02/05/25 01:00 100/72 02/05/25 01:00 100/72 02/05/25 01:00 100/72 02/05/25 01:00 100/72 02/05/25 01:00 71 21 92 02/05/25 01:00 36.9 C 02/05/25 00:45 74 02/05/25 00:30 71 21 92 02/05/25 00:30 96/66 L 02/05/25 00:30 96/66 L 02/05/25 00:30 96/66 L 02/05/25 00:30 96/66 L 02/05/25 00:30 96/66 L 02/05/25 00:15 72 23 90 02/05/25 00:00 104/65 02/05/25 00:00 73 02/05/25 00:00 75 24 90 02/05/25 00:00 104/65 02/05/25 00:00 104/65 02/05/25 00:00 104/65 02/05/25 00:00 104/65 02/04/25 23:45 73 22 94 02/04/25 23:30 73 23 91 02/04/25 23:30 99/63 L 02/04/25 23:30 99/63 L 02/04/25 23:30 99/63 L 02/04/25 23:30 99/63 L 02/04/25 23:30 99/63 L 02/04/25 23:29 37.7 C H 02/04/25 23:09 103/66 02/04/25 23:09 103/66 02/04/25 23:09 103/66 02/04/25 23:09 103/66 02/04/25 23:09 103/66 02/04/25 23:09 75 23 95 02/04/25 23:00 97/64 L 02/04/25 23:00 97/64 L 02/04/25 23:00 97/64 L 02/04/25 23:00 97/64 L 02/04/25 23:00 97/64 L 02/04/25 23:00 75 24 91 Laboratory Results 02/04/25 Unknown Urine Culture - Pending Urine,Clean Catch 02/04/25 18:42 Aerobic Blood Culture - Pending Blood Anaerobic Blood Culture - Pending 02/04/25 15:54 Aerobic Blood Culture - Pending Blood Anaerobic Blood Culture - Pending 02/05/25 02/05/25 02/04/25 06:32 03:07 Unknown WBC 9.35 RBC 3.60 L Hgb 10.2 L Hct 31.4 L MCV 87.2 MCH 28.3 MCHC 32.5 RDW Std Deviation 41.5 RDW Coeff of Nichol 13.1 Plt Count 220 MPV 11.2 Immature Gran % (Auto) 0.5 Neut % (Auto) 69.3 Lymph % (Auto) 13.5 [place] % (Auto) 15.8 Eos % (Auto) 0.7 Baso % (Auto) 0.2 Neut # (Auto) 6.47 Lymph # (Auto) 1.26 [place] # (Auto) 1.48 H Eos # (Auto) 0.07 Baso # (Auto) 0.02 Immature Gran # (Auto) 0.05 PT INR APTT PTT Ratio Heparin Anti-Xa, Unfract < 0.10 L VBG pH VBG pCO2 VBG pO2 VBG HCO3 VBG O2 Saturation VBG Base Excess Sodium 137 Potassium 3.9 Chloride 104 Carbon Dioxide 18 L Anion Gap 15 H BUN 27 H Creatinine 0.97 Est Cr Clr Drug Dosing 59.5 eGFR 65.66 BUN/Creatinine Ratio 27.8 H Glucose 118 H POC Glucose 112 H Estimat Average Glucose Hemoglobin A1c Lactate Calcium 8.3 L Phosphorus 3.6 Magnesium 2.3 Total Bilirubin AST ALT Alkaline Phosphatase Troponin I High Sens 7542.8 H* Total Protein Albumin Globulin Albumin/Globulin Ratio Triglycerides 118 Cholesterol 92 LDL Cholesterol, Calc 47 VLDL Cholesterol, Calc 24 HDL Cholesterol 21 Cholesterol/HDL Ratio 4.4 Procalcitonin Urine Color Yellow Urine Appearance Clear Urine pH 5.5 Ur Specific [place] > 1.045 H Urine Protein 1+ H Urine Glucose (UA) 3+ H Urine Ketones 2+ H Urine Blood Negative Urine Nitrite Positive A Urine Bilirubin Negative Urine Urobilinogen Negative Ur Leukocyte Esterase Negative Urine WBC (Auto) 0-5 Urine RBC (Auto) 0-2 U Hyaline Cast (Auto) 6-10 H U Epithel Cells (Auto) 0-2 Urine Bacteria (Auto) 4+ H Urine Comment Nasal Screen MRSA (PCR) Negative SARS-CoV-2 (PCR) Influenza Type A (PCR) Influenza Type B (PCR) RSV (RT-PCR) Blood Type Antibody Screen 02/04/25 02/04/25 02/04/25 23:22 20:09 17:45 WBC RBC Hgb Hct MCV MCH MCHC RDW Std Deviation RDW Coeff of Nichol Plt Count MPV Immature Gran % (Auto) Neut % (Auto) Lymph % (Auto) [place] % (Auto) Eos % (Auto) Baso % (Auto) Neut # (Auto) Lymph # (Auto) [place] # (Auto) Eos # (Auto) Baso # (Auto) Immature Gran # (Auto) PT INR APTT PTT Ratio Heparin Anti-Xa, Unfract VBG pH VBG pCO2 VBG pO2 VBG HCO3 VBG O2 Saturation VBG Base Excess Sodium Potassium Chloride Carbon Dioxide Anion Gap BUN Creatinine Est Cr Clr Drug Dosing eGFR BUN/Creatinine Ratio Glucose POC Glucose 138 H 192 H Estimat Average Glucose Hemoglobin A1c Lactate Calcium Phosphorus Magnesium Total Bilirubin AST ALT Alkaline Phosphatase Troponin I High Sens Total Protein Albumin Globulin Albumin/Globulin Ratio Triglycerides Cholesterol LDL Cholesterol, Calc VLDL Cholesterol, Calc HDL Cholesterol Cholesterol/HDL Ratio Procalcitonin Urine Color Urine Appearance Urine pH Ur Specific [place] Urine Protein Urine Glucose (UA) Urine Ketones Urine Blood Urine Nitrite Urine Bilirubin Urine Urobilinogen Ur Leukocyte Esterase Urine WBC (Auto) Urine RBC (Auto) U Hyaline Cast (Auto) U Epithel Cells (Auto) Urine Bacteria (Auto) Urine Comment Nasal Screen MRSA (PCR) SARS-CoV-2 (PCR) NEGATIVE Influenza Type A (PCR) Negative Influenza Type B (PCR) Negative RSV (RT-PCR) Negative Blood Type Antibody Screen 02/04/25 02/04/25 02/04/25 17:29 15:54 15:41 WBC 11.22 H RBC 3.72 L Hgb 10.6 L Hct 32.3 L MCV 86.8 MCH 28.5 MCHC 32.8 RDW Std Deviation 40.6 RDW Coeff of Nichol 12.8 Plt Count 219 MPV 11.4 Immature Gran % (Auto) 1.0 Neut % (Auto) 75.2 Lymph % (Auto) 9.1 [place] % (Auto) 14.1 Eos % (Auto) 0.3 Baso % (Auto) 0.3 Neut # (Auto) 8.45 H Lymph # (Auto) 1.02 L [place] # (Auto) 1.58 H Eos # (Auto) 0.03 Baso # (Auto) 0.03 Immature Gran # (Auto) 0.11 PT 11.8 INR 1.1 APTT 24 PTT Ratio 0.9 Heparin Anti-Xa, Unfract VBG pH 7.27 L VBG pCO2 44 VBG pO2 25 VBG HCO3 20 VBG O2 Saturation < 60.0 VBG Base Excess -6.6 Sodium 129 L Potassium 4.1 Chloride 96 L Carbon Dioxide 21 Anion Gap 12 H BUN 29 H Creatinine 1.26 H Est Cr Clr Drug Dosing 47.9 eGFR 47.97 BUN/Creatinine Ratio 23.0 H Glucose 209 H POC Glucose Estimat Average Glucose 332 Hemoglobin A1c 13.2 H Lactate 1.3 2.0 Calcium 8.4 L Phosphorus Magnesium 2.1 Total Bilirubin 0.7 AST 33 ALT 22 Alkaline Phosphatase 90 Troponin I High Sens 6604.1 H* D 8396.5 H* Total Protein 6.4 Albumin 3.0 L Globulin 3.4 Albumin/Globulin Ratio 0.9 Triglycerides Cholesterol LDL Cholesterol, Calc VLDL Cholesterol, Calc HDL Cholesterol Cholesterol/HDL Ratio Procalcitonin 0.19 Urine Color Urine Appearance Urine pH Ur Specific [place] Urine Protein Urine Glucose (UA) Urine Ketones Urine Blood Urine Nitrite Urine Bilirubin Urine Urobilinogen Ur Leukocyte Esterase Urine WBC (Auto) Urine RBC (Auto) U Hyaline Cast (Auto) U Epithel Cells (Auto) Urine Bacteria (Auto) Urine Comment Nasal Screen MRSA (PCR) SARS-CoV-2 (PCR) Influenza Type A (PCR) Influenza Type B (PCR) RSV (RT-PCR) Blood Type O Positive Antibody Screen NEGATIVE Diagnostic Findings Head CT 02/04/25 15:30 EXAM: Head CT without contrast and CT angiogram of the head and neck. History: Neurodeficit. Evaluate for acute stroke. Comparison: None. Technique: HEAD CT: Using multidetector thin collimation helical acquisition technique, axial, coronal and sagittal CT images from the skull base to the vertex were obtained without intravenous contrast. HEAD and NECK CTA: During rapid bolus intravenous injection of nonionic contrast material, axial images were obtained using thin collimation multidetector helical technique from the base of the neck through the of vertex of the head. This CT angiogram data was reconstructed at thin intervals with mild overlap. 3D reconstructions were obtained. The axial source images, multiplanar reformations, 3D reconstructions in both maximum intensity projection display and volume rendered models were reviewed. Dose reduction techniques were achieved by using automatic exposure control and/or adjustment of mA and/or kV according to patient size and/or use of iterative reconstruction technique. FINDINGS: Marketing Information Analyst film demonstrates no abnormality. Brain windows demonstrate focal area of absent barrios-white matter differentiation posterior left frontal lobe. Additional similar findings to a greater extent involving the posterior temporal and inferior left parietal lobe with effacement of the sulci5. No appreciated hemorrhage. Basal cisterns are patent. No midline shift. Lung windows demonstrate clear included pulmonary apices. Soft tissue windows demonstrate partially included least small left pleural effusion. Vascular windows demonstrate bilateral V4 segments to be patent. Bilateral posterior inferior cerebral arteries are patent. Basilar artery is patent. Bilateral posterior cerebral arteries are patent. Dense calcified atherosclerotic changes bilateral cavernous sinus internal carotid arteries. There is absence of flow involving portions of the right cavernous sinus internal carotid artery. There appears to be collateral filling of the distal internal carotid artery at this level. Anterior communicating artery and anterior cerebral arteries are patent. Diminished cortical vessels of the left posterior temporal infra parietal region. Left middle cerebral arteries otherwise appear to be patent. Right middle cerebral arteries are patent. Bilateral posterior communicating arteries are patent. Normal variant origin left vertebral artery off the aorta. Dominant right vertebral artery. Bilateral vertebral arteries are patent. Dense calcified atherosclerotic changes bilateral carotid bulbs. Approximately 50% diameter stenosis on the left. Left common carotid, internal carotid external carotid arteries are otherwise patent. Right common carotid artery is patent. Right external carotid artery is patent. There is absence of flow shortly after takeoff of the right terminal carotid artery. This extends to the level of the distal cavernous internal carotid artery sinus. Calcified atherosclerotic disease bilateral cavernous sinus internal carotid arteries with at least 50% diameter stenoses. Although limited due to bolus timing major dural venous sinuses are patent. Diminished enhancement at the above-described regions of hypoattenuation. Bone windows demonstrate likely mucous retention cysts left maxillary sinus. Degenerative changes of the cervical spine. Impression: 1. Focal attenuation changes posterior left frontal and posterior temporal and parietal regions most worrisome for acute infarcts. Posterior frontal region may be subacute in chronicity. No appreciated hemorrhage. 2. Occlusion of the right internal carotid artery shortly after its origin extending to the level of the supraclinoid segment. There appears to be collateral filling at this level. Dense calcified atheromatous plaque bilateral carotid bulbs with approximately 50% diameter stenoses at these levels. Additional dense atheromatous plaque bilateral cavernous sinus internal carotid arteries with at least 50% diameter stenoses. 3. Remaining systemic neck vasculature is patent. 4. Diminished cortical vessels and enhancement at the level of the above-described regions of suspected ischemia. Remaining intracranial systemic vasculature is otherwise patent. Please see above for details. These critical results were communicated with the ER physician on February 04, 2025 at 1500 hrs. Central standard time. The study was analyzed using artificial intelligence software for large vessel occlusion detection. Electronically signed by Audi Ellis 02-04-2025 4:11 PM Head CTA 02/04/25 15:30 EXAM: Head CT without contrast and CT angiogram of the head and neck. History: Neurodeficit. Evaluate for acute stroke. Comparison: None. Technique: HEAD CT: Using multidetector thin collimation helical acquisition technique, axial, coronal and sagittal CT images from the skull base to the vertex were obtained without intravenous contrast. HEAD and NECK CTA: During rapid bolus intravenous injection of nonionic contrast material, axial images were obtained using thin collimation multidetector helical technique from the base of the neck through the of vertex of the head. This CT angiogram data was reconstructed at thin intervals with mild overlap. 3D reconstructions were obtained. The axial source images, multiplanar reformations, 3D reconstructions in both maximum intensity projection display and volume rendered models were reviewed. Dose reduction techniques were achieved by using automatic exposure control and/or adjustment of mA and/or kV according to patient size and/or use of iterative reconstruction technique. FINDINGS: Marketing Information Analyst film demonstrates no abnormality. Brain windows demonstrate focal area of absent barrios-white matter differentiation posterior left frontal lobe. Additional similar findings to a greater extent involving the posterior temporal and inferior left parietal lobe with effacement of the sulci5. No appreciated hemorrhage. Basal cisterns are patent. No midline shift. Lung windows demonstrate clear included pulmonary apices. Soft tissue windows demonstrate partially included least small left pleural effusion. Vascular windows demonstrate bilateral V4 segments to be patent. Bilateral posterior inferior cerebral arteries are patent. Basilar artery is patent. Bilateral posterior cerebral arteries are patent. Dense calcified atherosclerotic changes bilateral cavernous sinus internal carotid arteries. There is absence of flow involving portions of the right cavernous sinus internal carotid artery. There appears to be collateral filling of the distal internal carotid artery at this level. Anterior communicating artery and anterior cerebral arteries are patent. Diminished cortical vessels of the left posterior temporal infra parietal region. Left middle cerebral arteries otherwise appear to be patent. Right middle cerebral arteries are patent. Bilateral posterior communicating arteries are patent. Normal variant origin left vertebral artery off the aorta. Dominant right vertebral artery. Bilateral vertebral arteries are patent. Dense calcified atherosclerotic changes bilateral carotid bulbs. Approximately 50% diameter stenosis on the left. Left common carotid, internal carotid external carotid arteries are otherwise patent. Right common carotid artery is patent. Right external carotid artery is patent. There is absence of flow shortly after takeoff of the right terminal carotid artery. This extends to the level of the distal cavernous internal carotid artery sinus. Calcified atherosclerotic disease bilateral cavernous sinus internal carotid arteries with at least 50% diameter stenoses. Although limited due to bolus timing major dural venous sinuses are patent. Diminished enhancement at the above-described regions of hypoattenuation. Bone windows demonstrate likely mucous retention cysts left maxillary sinus. Degenerative changes of the cervical spine. Impression: 1. Focal attenuation changes posterior left frontal and posterior temporal and parietal regions most worrisome for acute infarcts. Posterior frontal region may be subacute in chronicity. No appreciated hemorrhage. 2. Occlusion of the right internal carotid artery shortly after its origin extending to the level of the supraclinoid segment. There appears to be collateral filling at this level. Dense calcified atheromatous plaque bilateral carotid bulbs with approximately 50% diameter stenoses at these levels. Additional dense atheromatous plaque bilateral cavernous sinus internal carotid arteries with at least 50% diameter stenoses. 3. Remaining systemic neck vasculature is patent. 4. Diminished cortical vessels and enhancement at the level of the above-described regions of suspected ischemia. Remaining intracranial systemic vasculature is otherwise patent. Please see above for details. These critical results were communicated with the ER physician on February 04, 2025 at 1500 hrs. Central standard time. The study was analyzed using artificial intelligence software for large vessel occlusion detection. Electronically signed by Audi Ellis 02-04-2025 4:10 PM Neck CTA 02/04/25 15:30 EXAM: Head CT without contrast and CT angiogram of the head and neck. History: Neurodeficit. Evaluate for acute stroke. Comparison: None. Technique: HEAD CT: Using multidetector thin collimation helical acquisition technique, axial, coronal and sagittal CT images from the skull base to the vertex were obtained without intravenous contrast. HEAD and NECK CTA: During rapid bolus intravenous injection of nonionic contrast material, axial images were obtained using thin collimation multidetector helical technique from the base of the neck through the of vertex of the head. This CT angiogram data was reconstructed at thin intervals with mild overlap. 3D reconstructions were obtained. The axial source images, multiplanar reformations, 3D reconstructions in both maximum intensity projection display and volume rendered models were reviewed. Dose reduction techniques were achieved by using automatic exposure control and/or adjustment of mA and/or kV according to patient size and/or use of iterative reconstruction technique. FINDINGS: Marketing Information Analyst film demonstrates no abnormality. Brain windows demonstrate focal area of absent barrios-white matter differentiation posterior left frontal lobe. Additional similar findings to a greater extent involving the posterior temporal and inferior left parietal lobe with effacement of the sulci5. No appreciated hemorrhage. Basal cisterns are patent. No midline shift. Lung windows demonstrate clear included pulmonary apices. Soft tissue windows demonstrate partially included least small left pleural effusion. Vascular windows demonstrate bilateral V4 segments to be patent. Bilateral posterior inferior cerebral arteries are patent. Basilar artery is patent. Bilateral posterior cerebral arteries are patent. Dense calcified atherosclerotic changes bilateral cavernous sinus internal carotid arteries. There is absence of flow involving portions of the right cavernous sinus internal carotid artery. There appears to be collateral filling of the distal internal carotid artery at this level. Anterior communicating artery and anterior cerebral arteries are patent. Diminished cortical vessels of the left posterior temporal infra parietal region. Left middle cerebral arteries otherwise appear to be patent. Right middle cerebral arteries are patent. Bilateral posterior communicating arteries are patent. Normal variant origin left vertebral artery off the aorta. Dominant right vertebral artery. Bilateral vertebral arteries are patent. Dense calcified atherosclerotic changes bilateral carotid bulbs. Approximately 50% diameter stenosis on the left. Left common carotid, internal carotid external carotid arteries are otherwise patent. Right common carotid artery is patent. Right external carotid artery is patent. There is absence of flow shortly after takeoff of the right terminal carotid artery. This extends to the level of the distal cavernous internal carotid artery sinus. Calcified atherosclerotic disease bilateral cavernous sinus internal carotid arteries with at least 50% diameter stenoses. Although limited due to bolus timing major dural venous sinuses are patent. Diminished enhancement at the above-described regions of hypoattenuation. Bone windows demonstrate likely mucous retention cysts left maxillary sinus. Degenerative changes of the cervical spine. Impression: 1. Focal attenuation changes posterior left frontal and posterior temporal and parietal regions most worrisome for acute infarcts. Posterior frontal region may be subacute in chronicity. No appreciated hemorrhage. 2. Occlusion of the right internal carotid artery shortly after its origin extending to the level of the supraclinoid segment. There appears to be collateral filling at this level. Dense calcified atheromatous plaque bilateral carotid bulbs with approximately 50% diameter stenoses at these levels. Additional dense atheromatous plaque bilateral cavernous sinus internal carotid arteries with at least 50% diameter stenoses. 3. Remaining systemic neck vasculature is patent. 4. Diminished cortical vessels and enhancement at the level of the above-described regions of suspected ischemia. Remaining intracranial systemic vasculature is otherwise patent. Please see above for details. These critical results were communicated with the ER physician on February 04, 2025 at 1500 hrs. Central standard time. The study was analyzed using artificial intelligence software for large vessel occlusion detection. Electronically signed by Audi Ellis 02-04-2025 4:[address] 02/05/25 06:00 EXAM: CT head/brain wo con CLINICAL HISTORY: Large stroke. TECHNIQUE: Axial non-contrast CT scan of the brain was performed from the skull base to the high parietal region in axial, sagittal and coronal reconstructions. One of the following dose reduction techniques were utilized for this exam: Automated exposure control, adjustment of the mA and/or kV according to patient size, use of iterative reconstruction. COMPARISON: Comparison with the previous CT study dated 02/04/2025. FINDINGS: Brain Parenchyma: Now well-established hypodense, ill-defined cortical and subcortical area noted at the left parietal and temporal region representing acute infarct Still noted a faint hypodense area at the left frontal region with no edema around or exerting mass effect. Normal attenuation of the cerebellum and brainstem. No evidence of hemorrhage or mass effect. No abnormal areas of hyperattenuation. Ventricular System: Ventricles are normal in size and configuration. No evidence of hydrocephalus or ventricular enlargement. Subarachnoid Spaces: Normal sulci and cisterns. No evidence of subarachnoid hemorrhage or extra-axial fluid collections. A partial empty sella noted. Cerebellum and Brainstem: No masses, lesions, or areas of abnormal density. Orbits: Normal appearance of the globes, optic nerves, and extraocular muscles. No evidence of orbital masses or abnormal density. Sinuses: Bilateral maxillary sinusitis with left side maxillary mucous retention cyst formation. Mastoid Air Cells: Clear mastoid air cells. No evidence of mastoiditis. Skull: Normal skull morphology. IMPRESSION: 1. Mild progressive course of the previously noted hypodense, ill-defined cortical and subcortical area noted at the left parietal and temporal regions, denoting now well-established acute infarction related to left MCA terriorty to be clincial assessment. No definite hemorrhage seen . Further evaluation by MRI if clinically needed. 2. Still noted a small hypodense area at the left frontal region with no edema around or exerting mass effect, likely old vascular insult with encephalomalacia formation. Electronically signed by Layo Mckeon 02-05-2025 08:22 AM Medications Administered Home Medications Medication Instructions Recorded Confirmed Last Taken ergocalciferol (vitamin D2) 1,250 50,000 unit PO Q14D 12/14/23 02/04/25 02/10/24 20:00 mcg (50,000 unit) capsule insulin glargine 100 unit/mL (3 30 unit subcut BID 12/14/23 02/04/25 02/04/25 08:00 mL) subcutaneous pen (Lantus 30 UNITS Solostar U-100 Insulin) metoprolol succinate 50 mg 50 mg PO DAILY 12/14/23 02/04/25 02/10/24 18:30 tablet,extended release 24 hr risedronate 150 mg tablet 150 mg PO MONTHLY 12/14/23 02/04/25 02/10/24 08:00 tramadol 50 mg tablet 50 mg PO Q6H PRN Pain 12/14/23 02/04/25 02/04/24 aspirin 81 mg tablet,delayed 81 mg PO DAILY #30 tabs 01/14/24 02/04/25 02/04/25 release (Adult Aspirin Regimen) gabapentin 600 mg tablet 600 mg PO BID #180 tabs 02/05/24 02/04/25 02/04/25 08:00 empagliflozin 25 mg tablet 25 mg PO QAM 05/23/24 02/04/25 Unknown (Jardiance) atorvastatin 20 mg tablet 20 mg PO DAILY 02/04/25 02/04/25 02/04/25 furosemide 20 mg tablet 20 mg PO DAILY 02/04/25 02/04/25 Unknown insulin aspart U-100 100 unit/mL 0 sliding scale dose subcut TIDM 02/04/25 02/04/25 02/04/25 08:00 (3 mL) subcutaneous pen (Novolog FlexPen U-100 Insulin aspart) vit A 7,160 unit-vit C 113 mg-vit 1 tab PO DAILY 02/04/25 02/04/25 02/04/25 E 100 [id number] tablet Active Medications Generic Name Dose Route Start Last Admin Trade Name Freq PRN Reason Stop Dose Admin Pantoprazole Sodium 40 mg in 10 mls @ 5 mls/min 02/05/25 09:00 02/05/25 07:45 Protonix IV 03/07/25 08:59 5 mls/min DAILY JUSTA Administration Heparin Sodium/Dextrose 25,000 units in 500 mls @ 19 mls/hr 02/04/25 20:11 02/05/25 08:03 Heparin 90705 Unit/500 Ml D5w IV 03/06/25 20:10 950 units/hr .Q24H JUSTA 19 mls/hr Titration Protocol 950 UNITS/HR Ceftriaxone Sodium 2,000 mg in 50 mls @ 100 mls/hr 02/05/25 06:00 02/05/25 06:02 Rocephin IV 02/10/25 05:59 Infused Q24H JUSTA Infusion Lactated Ringer's 1,000 mls @ 75 mls/hr 02/05/25 09:15 02/05/25 10:19 Lr IV 02/08/25 09:14 75 mls/hr .[id number] JUSTA Administration Insulin Aspart 0 units 02/04/25 20:11 02/05/25 06:35 Insulin Aspart Per Unit Charge SC 03/06/25 20:10 Not Given Q6 JUSTA Miscellaneous 1 each 02/05/25 06:00 02/05/25 10:17 Icu Electrolyte Replacement Protocol N/A 02/12/25 05:59 Not Given BID@06,18 JUSTA Protocol Coding Level of Care Code 93356 CRITICAL CARE 1ST 30-74M Diagnoses Ischemic cerebrovascular accident (CVA) I63.9 ST elevation myocardial infarction (STEMI) involving other coronary artery of inferior wall I21.19 Involved coronary artery: other inferior wall coronary artery PAF (paroxysmal atrial fibrillation) I48.0 Occlusion of right carotid artery I65.21 Laterality: right Hyponatremia E87.1 CKD (chronic kidney disease) stage 3, GFR 30-59 ml/min N18.30 Leukocytosis D72.829 Coronary artery disease involving [place] coronary artery of [place] heart, unspecified whether angina present I25.10 Associated angina: unspecified whether angina present Coronary Disease-Associated Artery/Lesion type: [place] artery [place] vs. transplanted heart: [place] heart Uncontrolled type 2 diabetes mellitus with hyperglycemia E11.65 Time Spent (min) 55 (2) STEMI (ST elevation myocardial infarction) Involved coronary artery: other inferior wall coronary artery Qualified Code(s): I21.19 - ST elevation (STEMI) myocardial infarction involving other coronary artery of inferior wall (4) Carotid artery occlusion Laterality: right Qualified Code(s): I65.21 - Occlusion and stenosis of right carotid artery (8) Coronary artery disease Associated angina: unspecified whether angina present Coronary Disease- Associated Artery/Lesion type: [place] artery [place] vs. transplanted heart: [place] heart Qualified Code(s): I25.10 - Atherosclerotic heart disease of [place] coronary artery without angina pectoris
[2025-02-05 11:39] LABS: ANTI-Xa, UFH(UnfractionatedHep 0.15 IU/ml (0.3-0.7)
--- NOTE | 2025-02-05 11:45 | Electrocardiogram Report ---
Test Reason : Blood Pressure : */* mmHG Vent. Rate : 103 BPM Atrial Rate : 93 BPM P-R Int : 166 ms QRS Dur : 98 ms QT Int : 374 ms P-R-T Axes : 11 13 7 degrees QTcB Int : 489 ms Sinus rhythm with frequent Premature ventricular complexes Low voltage QRS ST elevation consider lateral injury or acute infarct ACUTE SD / STEMI Abnormal ECG When compared with ECG of 06-Jun-2024 05:32, Significant changes have occurred Confirmed by Jez Monroe ([id number]) on 02/05/2025 11:44:58 AM Referred By: Confirmed By: Jez Monroe
--- NOTE | 2025-02-05 11:47 | Electrocardiogram Report ---
Test Reason : Blood Pressure : */* mmHG Vent. Rate : 134 BPM Atrial Rate : * BPM P-R Int : * ms QRS Dur : 88 ms QT Int : 330 ms P-R-T Axes : * 64 -10 degrees QTcB Int : 492 ms Poor data quality, interpretation may be adversely affected Atrial fibrillation with rapid ventricular response Low voltage QRS Cannot rule out Anterior infarct , age undetermined Lateral injury pattern ACUTE SC / STEMI Abnormal ECG When compared with ECG of 04-Feb-2025 15:46, (unconfirmed) Atrial fibrillation has replaced Sinus rhythm Minimal criteria for Anterior infarct are now Present ST no longer depressed in Anterior leads T wave inversion now evident in Anterolateral leads Confirmed by Jez Monroe ([id number]) on 02/05/2025 11:46:42 AM Referred By: REFERRED SELF Confirmed By: Jez Monroe
--- NOTE | 2025-02-05 12:25 | Cardiology Consultation ---
Date of Consultation February 05, 2025 Assessment & Plan (1) Acute cerebrovascular accident (CVA) due to embolism of left middle cerebral artery: -Numerous acute infarcts noted on head CT. -Was not a candidate for thrombolysis on presentation. -Likely secondary to her untreated, paroxysmal atrial fibrillation. -Diagnosis of paroxysmal atrial fibrillation occurred in May 2024. No anticoagulation due to GI bleeding. GI tract never worked up. -Currently on heparin, however, long-term anticoagulation seems high risk. -As she is currently in sinus rhythm, could consider initiation of IV amiodarone to maintain sinus rhythm and reduce the chance of thromboembolism from atrial fibrillation. (2) Atrial fibrillation: -As above. (3) STEMI (ST elevation myocardial infarction): -Acute EKG changes and a new posterior lateral wall motion abnormality on echocardiogram. -Was felt to be too high risk for an acute coronary intervention at the time of her presentation yesterday. -Cardiac catheterization in May 2024 noted diffuse, not intervenable disease. -Would favor conservative medical management. History of Present Illness Attending Physician: Rah Jacobs MD History of Present Illness Mrs. Hay is a 64-year-old female admitted yesterday with a large MCA CVA, paroxysmal atrial fibrillation, and a subacute [place]. This consultation was ordered to assist in her cardiac management. Of note, the patient was seen during her hospitalization in May by Dr. Dick. Of note, the history is obtained from review of the medical record. The patient is unable to communicate and there is no family at the bedside. The patient was in her usual state of health until Thursday when she began to complain of left neck discomfort. According to the record, she spent Thursday and in bed. On Thursday, the patient developed aphasia and was brought to the emergency room for further evaluation. On arrival here, the patient was found to have acute infarcts in the left frontal, left temporal, and left parietal lobes. She also demonstrated a paroxysm of atrial fibrillation with rapid ventricular response. She was diagnosed with paroxysmal atrial fibrillation during her hospitalization back in May 2024 (sepsis and mental status changes). The patient was not started on long-term anticoagulation at that time as she was having some GI bleeding. That was to be worked up as an outpatient, however, I see no record of such. The patient underwent a cardiac catheterization during her hospitalization back in May. This noted diffuse disease and no intervenable lesions. There was a 90% small D1, 99% small D2, and an 80% distal LAD. There is a 30% proximal and mid LCx stenosis. There is a 90% stenosis in the proximal left PLB branch (small). Her right coronary noted 30% lesions in the proximal and mid vessel. There is an 80% distal PDA stenosis and a small vessel. Medical management was recommended. Currently, patient is resting comfortably in bed. Past medical and surgical history 1. Coronary artery diseasesee above, May 2024 2. Hypertension 3. Hypercholesterolemia 4. Paroxysmal atrial fibrillationsee above, no anticoagulation, May 2024 5. Cerebrovascular diseaseright coronary artery occlusion 6. Peripheral vascular disease 7. Chronic renal failure 8. Diabetes 9. Diabetic neuropathy 10. Obesity 11. Osteoporosis 12. Right toe osteomyelitis Social history and lives with her No tobacco or alcohol Family history Unobtainable Review of systems Unobtainable Allergies Allergy/AdvReac Type Severity Reaction Status Date / Time amoxicillin [From Augmentin] Allergy Intermediate Rash Verified 02/04/25 16:28 clavulanic acid Allergy Intermediate Rash Verified 02/04/25 16:28 [From Augmentin] Home Medications Medication Instructions Recorded Confirmed Type ergocalciferol (vitamin D2) 1,250 50,000 unit PO Q14D 12/14/23 02/04/25 History mcg (50,000 unit) capsule insulin glargine 100 unit/mL (3 30 unit subcut BID 12/14/23 02/04/25 History mL) subcutaneous pen (Lantus Solostar U-100 Insulin) metoprolol succinate 50 mg 50 mg PO DAILY 12/14/23 02/04/25 History tablet,extended release 24 hr risedronate 150 mg tablet 150 mg PO MONTHLY 12/14/23 02/04/25 History tramadol 50 mg tablet 50 mg PO Q6H PRN Pain 12/14/23 02/04/25 History aspirin 81 mg tablet,delayed 81 mg PO DAILY #30 tabs 01/14/24 02/04/25 Rx release (Adult Aspirin Regimen) gabapentin 600 mg tablet 600 mg PO BID #180 tabs 02/05/24 02/04/25 Rx empagliflozin 25 mg tablet 25 mg PO QAM 05/23/24 02/04/25 History (Jardiance) atorvastatin 20 mg tablet 20 mg PO DAILY 02/04/25 02/04/25 History furosemide 20 mg tablet 20 mg PO DAILY 02/04/25 02/04/25 History insulin aspart U-100 100 unit/mL 0 sliding scale dose subcut TIDM 02/04/25 02/04/25 History (3 mL) subcutaneous pen (Novolog FlexPen U-100 Insulin aspart) vit A 7,160 unit-vit C 113 mg-vit 1 tab PO DAILY 02/04/25 02/04/25 History E 100 [id number] tablet Patient History Medical History Acute kidney injury Anemia PAD (peripheral artery disease) Sepsis Osteoporosis Hypertension Neuropathy T2DM (type 2 diabetes mellitus) Social History Smoking Status: Never smoker Second Hand Exposure: No; Do You Dip or Chew Tobacco: No; Hx Alcohol Use: No Hx Substance Use: No Preferred Language: Spanish Communication Ability: Impaired Communication Ability Comment: aphasic Supervisor Statement Clerks Required: No Beliefs That Will Affect Care: None Current Living Situation: Spouse Current Living Situation Comment: with spouse Feels Safe at Home: Yes Assistive Devices: Glasses and Walker Physical Exam Physical Exam: In general this is a well-developed well-nourished white female in no acute distress. HEENT exam is negative. Neck reveals normal carotid upstrokes without bruits. Jugular venous pressure is flat at 90. There is no thyromegaly. Cardiovascular exam reveals a regular rhythm with distant heart sounds. No obvious murmurs. Lungs are anteriorly. Abdomen is soft without bruits. Extremities reveal intact radial artery and posterior tibial pulses bilaterally. There is no peripheral edema. Results & Data Vital Signs (Past 12 Hours) Vital Signs Temp Pulse Resp BP Pulse Ox O2 Del Method O2 Flow Rate 02/05/25 11:30 02/05/25 11:30 02/05/25 11:30 02/05/25 11:30 02/05/25 11:30 02/05/25 11:30 76 26 H 91 02/05/25 11:00 78 20 92 02/05/25 11:00 104/64 02/05/25 11:00 104/64 02/05/25 11:00 104/64 02/05/25 11:00 104/64 02/05/25 11:00 104/64 02/05/25 10:30 71 23 91 02/05/25 10:30 105/71 02/05/25 10:30 105/71 02/05/25 10:30 105/71 02/05/25 10:30 105/71 02/05/25 10:30 105/71 02/05/25 10:00 107/69 02/05/25 10:00 107/69 02/05/25 10:00 107/69 02/05/25 10:00 107/69 02/05/25 10:00 107/69 02/05/25 10:00 74 25 H 92 02/05/25 09:30 73 23 91 02/05/25 09:30 102/70 02/05/25 09:30 102/70 02/05/25 09:30 102/70 02/05/25 09:30 102/70 02/05/25 09:30 102/70 02/05/25 09:00 99/69 L 02/05/25 09:00 99/69 L 02/05/25 09:00 99/69 L 02/05/25 09:00 99/69 L 02/05/25 09:00 99/69 L 02/05/25 09:00 71 26 H 93 Room Air 02/05/25 08:30 79 18 90 02/05/25 08:30 95/56 L 02/05/25 08:30 95/56 L 02/05/25 08:30 95/56 L 02/05/25 08:30 95/56 L 02/05/25 08:30 95/56 L 02/05/25 08:00 91 H 20 94 Nasal Cannula 2 02/05/25 08:00 112/73 02/05/25 08:00 112/73 02/05/25 08:00 112/73 02/05/25 08:00 112/73 02/05/25 08:00 112/73 02/05/25 07:30 110/75 02/05/25 07:30 110/75 02/05/25 07:30 110/75 02/05/25 07:30 110/75 02/05/25 07:30 110/75 02/05/25 07:30 91 H 22 95 02/05/25 07:00 93 H 24 94 02/05/25 07:00 110/72 02/05/25 07:00 110/72 02/05/25 07:00 110/72 02/05/25 07:00 110/72 02/05/25 07:00 110/72 02/05/25 06:30 117/75 02/05/25 06:30 117/75 02/05/25 06:30 117/75 02/05/25 06:30 90 16 94 02/05/25 06:15 91 H 15 93 02/05/25 06:02 115/77 02/05/25 06:02 115/77 02/05/25 06:02 115/77 02/05/25 06:02 115/77 02/05/25 06:02 115/77 02/05/25 06:00 93 H 24 93 02/05/25 05:57 94 H 20 93 02/05/25 05:30 116/76 02/05/25 05:30 116/76 02/05/25 05:30 116/76 02/05/25 05:30 116/76 02/05/25 05:30 116/76 02/05/25 05:30 90 22 96 02/05/25 05:15 92 H 22 96 02/05/25 05:05 114/73 02/05/25 05:05 114/73 02/05/25 05:05 114/73 02/05/25 05:05 114/73 02/05/25 05:05 114/73 02/05/25 05:03 94 H 24 96 02/05/25 05:00 96 H 22 96 02/05/25 05:00 36.9 C 02/05/25 04:45 94 H 20 98 02/05/25 04:30 84 20 97 02/05/25 04:30 116/79 02/05/25 04:30 116/79 02/05/25 04:30 116/79 02/05/25 04:30 116/79 02/05/25 04:30 116/79 02/05/25 04:15 87 24 97 02/05/25 04:01 116/79 02/05/25 04:01 116/79 02/05/25 04:01 116/79 02/05/25 04:01 116/79 02/05/25 04:01 116/79 02/05/25 04:00 86 21 97 02/05/25 03:45 89 16 98 02/05/25 03:31 86/68 L 02/05/25 03:31 86/68 L 02/05/25 03:31 86/68 L 02/05/25 03:31 86/68 L 02/05/25 03:31 86/68 L 02/05/25 03:30 88 22 96 02/05/25 03:15 91 H 22 95 02/05/25 03:00 69 19 96 02/05/25 03:00 83/65 L 02/05/25 03:00 83/65 L 02/05/25 03:00 83/65 L 02/05/25 03:00 83/65 L 02/05/25 03:00 83/65 L 02/05/25 02:45 89 21 97 02/05/25 02:30 91 H 23 94 02/05/25 02:30 113/74 02/05/25 02:30 113/74 02/05/25 02:30 113/74 02/05/25 02:30 113/74 02/05/25 02:30 113/74 02/05/25 02:15 89 21 91 02/05/25 02:00 92 H 23 92 02/05/25 02:00 120/79 02/05/25 02:00 120/79 02/05/25 02:00 120/79 02/05/25 02:00 120/79 02/05/25 02:00 120/79 02/05/25 01:45 91 H 21 92 02/05/25 01:30 116/76 02/05/25 01:30 116/76 02/05/25 01:30 116/76 02/05/25 01:30 116/76 02/05/25 01:30 116/76 02/05/25 01:30 92 H 22 91 02/05/25 01:15 77 17 94 02/05/25 01:00 100/72 02/05/25 01:00 100/72 02/05/25 01:00 100/72 02/05/25 01:00 100/72 02/05/25 01:00 100/72 02/05/25 01:00 71 21 92 02/05/25 01:00 36.9 C 02/05/25 00:45 74 02/05/25 00:30 71 21 92 02/05/25 00:30 96/66 L 02/05/25 00:30 96/66 L 02/05/25 00:30 96/66 L 02/05/25 00:30 96/66 L 02/05/25 00:30 96/66 L 02/05/25 00:15 72 23 90 Laboratory Results CBC notes a hemoglobin of 10.2. Electrolytes are unremarkable. Initial high- sensitivity troponin is 8396 with follow-up values of 6604, and 7543. Diagnostic Findings Echocardiogram notes mild left ventricular dysfunction with ejection fraction of 40 to 45%. The posterolateral wall is akinetic. There is mild LVH along with moderate mitral regurgitation. EKG on presentation noted sinus rhythm with PVCs, high lateral ST elevation, and inferoposterior ST depression. Follow-up tracing noted atrial fibrillation with a rapid ventricular response and lateral ST elevation. PG Care Time/CCT Total # of Minutes Spent Total Time Spent with Patient: Total time spent is greater than 50% in coordination of care (as documented) at patient's floor/unit and/or counseling patient: Coding Level of Care Code 54619 INT INP/OBS CARE 375MIN Diagnoses Acute cerebrovascular accident (CVA) due to embolism of left middle cerebral artery I63.412 Paroxysmal atrial fibrillation I48.0 Atrial fibrillation type: paroxysmal ST elevation myocardial infarction (STEMI) involving other coronary artery of inferior wall I21.19 Involved coronary artery: other inferior wall coronary artery (2) Atrial fibrillation Atrial fibrillation type: paroxysmal Qualified Code(s): I48.0 - Paroxysmal atrial fibrillation (3) STEMI (ST elevation myocardial infarction) Involved coronary artery: other inferior wall coronary artery Qualified Code(s): I21.19 - ST elevation (STEMI) myocardial infarction involving other coronary artery of inferior wall
--- NOTE | 2025-02-05 13:23 | Magnetic Resonance Report ---
MRI OF THE BRAIN WITHOUT IV CONTRAST CLINICAL HISTORY: Stroke COMPARISON STUDY: CT of the brain dated 02/05/2025 TECHNIQUE: MRI of the brain was performed utilizing various T1 and T2-weighted sequences in the axial , sagittal, and coronal planes. IV contrast was not administered for this examination. The examinatio n is degraded by motion artifact. FINDINGS: Brain parenchyma: There is a large region of restricted diffusion within the posterior left temporal lobe, with smaller foci of restricted diffusion seen within the left parietal cortex, the right front al cortex, and the bilateral occipital cortex. The distribution favors an embolic event. There is no hemorrhage or midline shift. There is minimal microangiopathic change. No extra-axial fluid collectio n is seen. The cerebellar tonsils are normal in configuration. Ventricles, sulci, and cisterns: Normal in configuration. Pituitary and sella: Unremarkable. Intracranial vasculature: There is loss of the right internal carotid artery flow void at the skull b ase. The remaining flow voids at the skull base are maintained. Orbits: The bony orbits are grossly intact. Orbital contents are normal in appearance. Sinuses and mastoids: Mild mucosal thickening is seen within the maxillary and ethmoid sinuses. The m astoid air cells are clear. Calvarium: Unremarkable. Cervical cord: Partially visualized cervical spinal cord is normal in morphology and signal intensity . IMPRESSION: 1. There is a large focus of restricted diffusion within the left posterior temporal lobe consistent with acute to subacute ischemia. 2. There are several additional smaller foci of restricted diffusion in both hemispheres as above ind icating multiterritorial ischemia. The distribution favors an embolic phenomenon. 3. There is no hemorrhage or midline shift. 4. There is loss of the right internal carotid artery flow void at the skull base. The vessel was viky wn to be thrombosed on yesterday's CT angiogram of the brain. ACT 112: Negative or not required by law. Electronically signed by: Oh Parsons M.D. 02/05/2025 1:21 PM
[2025-02-05 20:34] LABS: ANTI-Xa, LMWH(Low Molecular Wt 0.17 IU/ML (< 0.10)
[2025-02-05 21:21] LABS: ANTI-Xa, UFH(UnfractionatedHep 0.16 IU/ml (0.3-0.7)
[2025-02-05] MEDS: INSULIN ASPART PER UNIT CHARGE SC SCH (21:40)
[2025-02-06 04:36] LABS: Hematocrit (blood only) 33.6 % (37.0-47.0); Hemoglobin 10.8 g/dL (12.0-16.0); Immature Granulocytes # (auto) 0.08 K/uL (0.01-0.20); Immature Granulocytes % (auto) 0.7 %; Mean Corpuscular Hemoglobin 28.5 pg (25.0-34.0); Mean Corpuscular Volume 88.7 fL (80.0-100.0); Platelet Count 256 K/uL (130-400); RDW Standard Deviation 42.5 fL (36.4-46.3); Red Blood Count 3.79 M/uL (4.20-5.40); White Blood Count 11.25 K/ul (4.8-10.8)
[2025-02-06 05:06] LABS: Anion Gap 19.0 (3-11); Blood Urea Nitrogen 24.0 mg/dl (6-23); Calcium 8.2 mg/dl (8.6-10.3); Carbon Dioxide 16.0 mmol/L (21-32); Chloride 100.0 mmol/L (98-107); Creatinine Clr Calc Pharmacy 54.4 ml/min; Glucose 208.0 mg/dl (70-99(Fasting)); Magnesium 2.1 mg/dl (1.7-2.4); Potassium 4.8 mmol/L (3.5-5.1); Sodium 135.0 mmol/L (136-145)
[2025-02-06 05:13] LABS: ANTI-Xa, UFH(UnfractionatedHep 0.23 IU/ml (0.3-0.7)
[2025-02-06 06:15] LABS: Appearance Urine Cloudy (Clear); Bacteria Urine Automated None Seen (None Seen); Epithelial Cell Urine Auto 0-2 /hpf (0-2); Glucose Urine UA 3+ (Negative); RBC Urine Automated 0-2 /hpf (0-2)
[2025-02-06] MEDS ORDERED: STAT IV Infusion **Titration per Protocol STA (06:17)
[2025-02-06] MEDS ORDERED: PHARMACY GLYCEMIC MGMT CONSULT PRN (06:17)
[2025-02-06] MEDS: LACTATED RINGER'S 1,000 ML IV ONE (06:28)
[2025-02-06] MEDS: INSULIN REGULAR 250 UNITS in SODIUM CHLORIDE 0.9% 247.5 ML IV SCH (06:54)
--- NOTE | 2025-02-06 07:30 | Critical Care Progress Note ---
Date of Service February 06, 2025 Assessment & Plan (1) Ischemic cerebrovascular accident (CVA): (2) STEMI (ST elevation myocardial infarction): (3) PAF (paroxysmal atrial fibrillation): (4) Carotid artery occlusion: (5) Hyponatremia: (6) CKD (chronic kidney disease) stage 3, GFR 30-59 ml/min: (7) Leukocytosis: (8) Coronary artery disease: (9) Uncontrolled type 2 diabetes mellitus with hyperglycemia: Plan Reason Critically Ill: 1. Acute ischemic stroke, frontal, temporal, and parietal, likely embolic in origin 2. Paroxysmal atrial fibrillation 3. R ICA occlusion, chronic 4. STEMI, demand vs. primary ACS 5. Uncontrolled DMII (13.2% 01/2025) 6. Medical non-compliance 7. Leukocytosis with neutrophil predominance, stress-mediated 8. Mixed acidosis 9. Hyperglycemia Neuro - [facility] ICU: Negative RASS GOAL 0 --Acute stroke Close neurologic checks per protocol Aspiration, seizure, and fall precautions. MRI brain 02/05/2025: Large focus of restricted diffusion within the left posterior temporal lobe consistent with acute to subacute ischemia, several additional smaller foci of BrezTri diffusion in both hemisphere Cardiac - STEMI; high risk for cath on presentation Multiple non-intervenable coronary stenoses on cath May 2024 --> deemed not a candidate as she was too high risk on current presentation Low-dose Heparin to be transitioned to Eliquis when taking PO Goal BP <160/90 for 24 hours from onset of stroke symptoms, followed by slow correction to normotensive blood pressure goal of <130/90. 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 HEME - -- Normocytic anemia Monitor H&H ID - No acute concerns Positive nitrite with no significant WBCs in urine Stop empiric antibiotics. Procalcitonin WNL. No clinical signs of infection Nasal MRSA --Prophylaxis VTE: Heparin drip GI: Pantoprazole Lines: Peripheral Diet: N.p.o. Plan: In/out: Positive 669, urine output 1896, +1.8 L since coming to the hospital Resume p.o. atorvastatin Continue with insulin drip for possible euglycemic ketoacidosis given that the patient is on Jardiance, starvation ketosis also probability. Hemodynamically stable to be downgraded to medical Case discussed with primary team Continue with Roland catheter for the time being, trial of taking it out in the next couple of days Would recommend to follow-up with neurology regarding aspirin and Eliquis Please note the above document was generated using voice recognition software. It may contain grammatical, syntax or spelling errors.Any formal questions or concerns about the content, text or information contained within the body of this dictation should be directly addressed to the provider for clarification. Admission and Anticipated Discharge Date Admission Date: February 04, 2025 Subjective Patient seen and examined at bedside. No acute distress, no evidence events overnight She was saturating 94% on room air Blood pressure was in the high 100. Patient's was in the room at the time of examination Unfortunately patient was not able to express given the aphasia She was following simple commands Moving all extremities Review of Systems 2 Review of Systems: All systems reviewed & are unremarkable except as noted in Subjective Physical Exam 2 Physical Exam: Constitutional: No acute distress HEENT: EOMI, PERRLA Respiratory system: Decreased air entry bilaterally, no wheeze, no rhonchi, mild crackles bilateral lower lobes CVS: S1-S2 positive, positive 3 out of 6 systolic murmur appreciated best at left parasternal border Abdomen: Soft, nontender, nondistended, positive bowel sounds x4 Extremities: +2 pulses bilaterally radialis/ dorsalis pedis, no cyanosis, no edema Neuro: Awake and alert Psych: Flat mood and affect G/U: Positive Roland Skin: no rashes, warm and dry Lymphatic: no cervical or axillary lymphadenopathy Results & Data Results & Data Vital Signs (Past 12 Hours) Vital Signs Temp Pulse Resp BP Pulse Ox 02/06/25 06:00 85 16 94 02/06/25 06:00 109/65 02/06/25 05:00 107/69 02/06/25 05:00 82 28 H 94 02/06/25 04:30 104 H 30 H 93 02/06/25 04:00 101 H 30 H 93 02/06/25 04:00 106/62 02/06/25 04:00 106/62 02/06/25 03:30 101 H 28 H 92 02/06/25 03:01 109/63 02/06/25 03:00 108 H 18 95 02/06/25 02:30 103 H 31 H 93 02/06/25 02:30 122/71 02/06/25 02:00 95/65 L 02/06/25 02:00 100 H 28 H 93 02/06/25 01:36 105 H 29 H 94 02/06/25 01:30 106 H 18 108/65 94 02/06/25 01:00 114/70 02/06/25 01:00 101 H 29 H 95 02/06/25 00:30 100 H 28 H 94 02/06/25 00:30 119/74 02/06/25 00:00 37 C 02/06/25 00:00 101/59 L 02/06/25 00:00 101/59 L 02/06/25 00:00 78 31 H 93 02/06/25 00:00 78 02/05/25 23:30 79 30 H 95 02/05/25 23:30 112/71 02/05/25 23:00 79 17 93 02/05/25 23:00 105/70 02/05/25 22:30 99 H 31 H 92 02/05/25 22:30 120/79 02/05/25 22:00 117/76 02/05/25 22:00 78 21 95 02/05/25 21:30 78 31 H 93 02/05/25 21:00 113/75 02/05/25 21:00 78 28 H 94 02/05/25 20:43 118/76 02/05/25 20:42 79 30 H 97 02/05/25 20:30 76 26 H 94 02/05/25 20:00 36.8 C 02/05/25 20:00 112/70 02/05/25 20:00 77 28 H 96 02/05/25 19:30 75 30 H 95 Laboratory Results 02/06/25 04:08 02/06/25 04:08 Coding Level of Care Code 64188 SUB INP/OBS CARE 2/35MIN Diagnoses Ischemic cerebrovascular accident (CVA) I63.9 ST elevation myocardial infarction (STEMI) involving other coronary artery of inferior wall I21.19 Involved coronary artery: other inferior wall coronary artery PAF (paroxysmal atrial fibrillation) I48.0 Occlusion of right carotid artery I65.21 Laterality: right Hyponatremia E87.1 CKD (chronic kidney disease) stage 3, GFR 30-59 ml/min N18.30 Leukocytosis D72.829 Coronary artery disease involving [place] coronary artery of [place] heart, unspecified whether angina present I25.10 Associated angina: unspecified whether angina present Coronary Disease-Associated Artery/Lesion type: [place] artery [place] vs. transplanted heart: [place] heart Uncontrolled type 2 diabetes mellitus with hyperglycemia E11.65 (2) STEMI (ST elevation myocardial infarction) Involved coronary artery: other inferior wall coronary artery Qualified Code(s): I21.19 - ST elevation (STEMI) myocardial infarction involving other coronary artery of inferior wall (4) Carotid artery occlusion Laterality: right Qualified Code(s): I65.21 - Occlusion and stenosis of right carotid artery (8) Coronary artery disease Associated angina: unspecified whether angina present Coronary Disease- Associated Artery/Lesion type: [place] artery [place] vs. transplanted heart: n ative heart Qualified Code(s): I25.10 - Atherosclerotic heart disease of [place] coronary artery without angina pectoris
[2025-02-06] MEDS: D5W AND LACTATED RINGERS 1,000 ML IV SCH (08:10)
[2025-02-06] MEDS: INSULIN ASPART PER UNIT CHARGE SC SCH (08:31)
--- NOTE | 2025-02-06 09:58 | Consultation ---
Date of Consultation February 06, 2025 Assessment & Plan (1) Carotid artery occlusion: Pt with R ICA occlusion noted on CTA. L ICA with 50% stenosis. No indications for vascular surgical intervention at this time. Would recommend pt have another carotid US done in 1 yr for surveillance. Our office can call pt to schedule. Please call if needed. Laterality: right Qualified Code(s): I65.21 - Occlusion and stenosis of right carotid artery History of Present Illness Reason for Consultation: R ICA occlusion Attending Physician: Marcus Sanchez MD History of Present Illness 64 yo f with hx of paroxysmal a fib, CKD, HTN, DMII, hypercholesterolemia, neuropathy, admitted with NSTEMI and CVA, seen in consultation today for R ICA occlusion noted on imaging. Pt is generally aphasic and unable to verbalize the events that led her to [facility]. She articulates single word answers such as "OK." Per chart, pt had been complaining of L sided neck pain to her , then started having some AMS and balance problems then became aphasic. CTA imaging demonstrates R ICA occlusion and about 50% stenosis of L ICA. Allergies Allergy/AdvReac Type Severity Reaction Status Date / Time amoxicillin [From Augmentin] Allergy Intermediate Rash Verified 02/04/25 16:28 clavulanic acid Allergy Intermediate Rash Verified 02/04/25 16:28 [From Augmentin] Home Medications Medication Instructions Recorded Confirmed Type ergocalciferol (vitamin D2) 1,250 50,000 unit PO Q14D 12/14/23 02/04/25 History mcg (50,000 unit) capsule insulin glargine 100 unit/mL (3 30 unit subcut BID 12/14/23 02/04/25 History mL) subcutaneous pen (Lantus Solostar U-100 Insulin) metoprolol succinate 50 mg 50 mg PO DAILY 12/14/23 02/04/25 History tablet,extended release 24 hr risedronate 150 mg tablet 150 mg PO MONTHLY 12/14/23 02/04/25 History tramadol 50 mg tablet 50 mg PO Q6H PRN Pain 12/14/23 02/04/25 History aspirin 81 mg tablet,delayed 81 mg PO DAILY #30 tabs 01/14/24 02/04/25 Rx release (Adult Aspirin Regimen) gabapentin 600 mg tablet 600 mg PO BID #180 tabs 02/05/24 02/04/25 Rx empagliflozin 25 mg tablet 25 mg PO QAM 05/23/24 02/04/25 History (Jardiance) atorvastatin 20 mg tablet 20 mg PO DAILY 02/04/25 02/04/25 History furosemide 20 mg tablet 20 mg PO DAILY 02/04/25 02/04/25 History insulin aspart U-100 100 unit/mL 0 sliding scale dose subcut TIDM 02/04/25 02/04/25 History (3 mL) subcutaneous pen (Novolog FlexPen U-100 Insulin aspart) vit A 7,160 unit-vit C 113 mg-vit 1 tab PO DAILY 02/04/25 02/04/25 History E 100 [id number] tablet Patient History Medical History Acute kidney injury Anemia PAD (peripheral artery disease) Sepsis Osteoporosis Hypertension Neuropathy T2DM (type 2 diabetes mellitus) Social History Smoking Status: Never smoker Second Hand Exposure: No; Do You Dip or Chew Tobacco: No; Hx Alcohol Use: No Hx Substance Use: No Preferred Language: Wolof Communication Ability: Impaired Communication Ability Comment: aphasic Software Applications Engineer Required: No Beliefs That Will Affect Care: None Current Living Situation: Spouse Current Living Situation Comment: with spouse Feels Safe at Home: Yes Assistive Devices: Glasses and Walker Review of Systems Review of Systems: Unobtainable due to cognitive status Physical Exam Constitutional: WD/WN, vitals as above cooperative and comfortable; not in distress Respiratory: normal respiratory effort, lungs clear to auscultation Auscultation: + diminished lung sounds Cardiovascular: Rate/Rhythm: regular rate and regular rhythm Vessels: posterior tibial pulses present, dorsalis pedis pulses present and radial pulses present; + abnormal peripheral pulses Extremities: normal capillary refill Gastrointestinal (Abdomen): Inspection/Auscultation: abdomen normal to inspection and normal bowel sounds Percussion/Palpation: abdomen soft; abdomen nontender Musculoskeletal: Extremities: extremities normal to inspection Skin: no rashes, warm and dry Neurologic: moves all extremities, awake and + confused Speech / Cognition: + expressive aphasia Psychiatric: Orientation: alert, oriented to person and oriented to place; + not oriented to time Eye Contact: + fair eye contact Affect: + flat affect Results & Data Vital Signs (Past 12 Hours) Vital Signs Temp Pulse Resp BP Pulse Ox 02/06/25 06:00 85 16 94 02/06/25 06:00 109/65 02/06/25 05:00 107/69 02/06/25 05:00 82 28 H 94 02/06/25 04:30 104 H 30 H 93 02/06/25 04:00 101 H 30 H 93 02/06/25 04:00 106/62 02/06/25 04:00 106/62 02/06/25 03:30 101 H 28 H 92 02/06/25 03:01 109/63 02/06/25 03:00 108 H 18 95 02/06/25 02:30 103 H 31 H 93 02/06/25 02:30 122/71 02/06/25 02:00 95/65 L 02/06/25 02:00 100 H 28 H 93 02/06/25 01:36 105 H 29 H 94 02/06/25 01:30 106 H 18 108/65 94 02/06/25 01:00 114/70 02/06/25 01:00 101 H 29 H 95 02/06/25 00:30 100 H 28 H 94 02/06/25 00:30 119/74 02/06/25 00:00 37 C 02/06/25 00:00 101/59 L 02/06/25 00:00 101/59 L 02/06/25 00:00 78 31 H 93 02/06/25 00:00 78 02/05/25 23:30 79 30 H 95 02/05/25 23:30 112/71 02/05/25 23:00 79 17 93 02/05/25 23:00 105/70 02/05/25 22:30 99 H 31 H 92 02/05/25 22:30 120/79 02/05/25 22:00 117/76 02/05/25 22:00 78 21 95
[2025-02-06 10:53] LABS: Anion Gap 15.0 (3-11); Blood Urea Nitrogen 23.0 mg/dl (6-23); Calcium 8.1 mg/dl (8.6-10.3); Carbon Dioxide 18.0 mmol/L (21-32); Chloride 101.0 mmol/L (98-107); Creatinine Clr Calc Pharmacy 59.8 ml/min; Glucose 200.0 mg/dl (70-99(Fasting)); Magnesium 2.0 mg/dl (1.7-2.4); Potassium 4.2 mmol/L (3.5-5.1); Sodium 134.0 mmol/L (136-145)
[2025-02-06 12:32] LABS: ANTI-Xa, UFH(UnfractionatedHep 0.21 IU/ml (0.3-0.7)
--- NOTE | 2025-02-06 13:22 | Pharmacy Report ---
Pharmacy Glycemic Short Note 2 - Date of Service February 06, 2025 - Glycemic Short BSG Results (Last 24 hours): 02/05/25 02/05/25 02/06/25 13:33 21:04 04:08 Glucose 208 H POC Glucose 132 H 206 H 02/06/25 02/06/25 02/06/25 06:41 07:55 09:11 Glucose POC Glucose 194 H 171 H 202 H 02/06/25 02/06/25 02/06/25 10:00 10:15 11:20 Glucose 200 H POC Glucose 197 H 168 H OUTPATIENT ANTIDIABETIC REGIMEN: * Lantus 30 units BID, Novolog sliding scale, Jardiance 25 mg PO QAM * A1c 13.2% 02/04/25 ASSESSMENT: * Patient admitted 02/04 with CVA/STEMI * Uncontrolled diabetes outpatient with A1c >13%, 4+ ketones in urine this morning, Bicarb 16, anion gap 19- BSG was 200 mg/dL- question starvation ketosis vs euglycemic ketoacidosis, patient is on jardiance (BSG range 112-206 mg/dL since admission) * Patient was started on insulin infusion at 0.035 units/kg/hr without bolus. Labs improving. * Plan to continue with insulin infusion until gap closed PLAN FOR INPATIENT GLYCEMIC CONTROL: * Hold outpatient oral diabetes medications * Basal insulin * Hold * Bolus insulin- per insulin infusion calculator for carbs
[2025-02-06 15:25] LABS: Anion Gap 12.0 (3-11); Blood Urea Nitrogen 20.0 mg/dl (6-23); Calcium 8.3 mg/dl (8.6-10.3); Carbon Dioxide 21.0 mmol/L (21-32); Chloride 101.0 mmol/L (98-107); Creatinine Clr Calc Pharmacy 60.4 ml/min; Glucose 168.0 mg/dl (70-99(Fasting)); Magnesium 2.0 mg/dl (1.7-2.4); Potassium 4.0 mmol/L (3.5-5.1); Sodium 134.0 mmol/L (136-145)
--- NOTE | 2025-02-06 15:31 | Hospitalist Progress Note ---
Date of Service February 06, 2025 Assessment & Plan (1) Stroke: Plan: Acute ischemic CVA in the left MCA distribution with associated aphasia and right hemiplegia. CT scan of the head shows evidence of ischemic stroke: MRI indeed confirms evidence of acute stroke Per neurology, can transition to p.o. Eliquis 5 mg twice daily, was on heparin drip. They recommend holding antiplatelet therapy for now due to concern for hemorrhagic conversion. Consult physical therapy Keep blood pressure less than 160/90 for 24 hours Recommend improved glycemic control, hemoglobin A1c 13.2% Repeat CT scan of the head in 2 weeks outpatient and if no evidence of intracranial hemorrhage, may now add aspirin 81 mg daily in addition to Eliquis. (2) STEMI (ST elevation myocardial infarction): Plan: Elevated troponin Echo showed evidence of wall motion abnormality Patient probably has NSTEMI however per cardiology will continue medical management for now (3) Atrial fibrillation: Plan: Prior atrial fibrillation noted during last admission. She was not discharged on AC due to GI bleeding. The plan had been to get GI clearance, then start AC, but She did not follow-up with GI. Rate is currently controlled. She is on P.o. Eliquis 5 mg twice daily. Continue telemetry. IV metoprolol ordered as needed Per cardiology, may need amiodarone to keep her in sinus rhythm (4) Benign essential hypertension: Plan: Will keep blood pressure systolic less than 160 per neurology (5) Coronary artery disease: Plan: Prior LHC in 05/2024 with diffuse CAD. Medical management for now (6) DKA (diabetic ketoacidosis): Plan: Anion gap is resolved Blood glucose ordered better control Continue insulin and insulin sliding scale. (7) Carotid artery occlusion: Plan: Right-sided. Noted on CTA neck on 02/04/2025. With collateral reconstitution on the CT. Per vascular surgery, no surgical plans for now Repeat follow-up ultrasound (8) Hyponatremia: Plan: Mild on admission. Partly due to hyperglycemia. No intervention necessary at this time. Will follow (9) CKD (chronic kidney disease) stage 3, GFR 30-59 ml/min: Plan: Stable. Monitor intake and output. Serial labs Plan She will need rehab at discharge. OT and PT assessments when appropriate Admission and Anticipated Discharge Date Admission Date: February 04, 2025 Subjective Patient seen and examined in the ICU, she is aphasic both receptive and expressive although able to follow some commands Review of Systems Review of Systems: Unreliable due to aphasia Physical Exam Physical Exam: The patient is awake, alert and oriented 3, well developed and well nourished, normocephalic and atraumatic, lying in bed and in no acute distress. HEENT--PERRL, EOMI, mucous membranes and oropharynx mildly dry Neck--supple. No JVD. No bruits. Thyroid normal, trachea midline, no adenopathy. Heart--normal S1 and S2. No murmurs, rubs or gallops. Lungs--clear bilaterally, no respiratory distress, no accessory muscle use. Abdomen--normal bowel sounds and soft. Extremities--no cyanosis or clubbing. No edema. Dermatologic--normal skin turgor, normal color, no abnormal lymph nodes, no rash. Neurologic--She is aphasic Rheumatologic--normal range of motion. Psychiatric--normal affect. Results & Data Results & Data Vital Signs (Past 12 Hours) Vital Signs Pulse Resp BP Pulse Ox 02/06/25 11:30 101 H 21 02/06/25 11:00 100 H 20 02/06/25 10:30 98 H 31 H 94 02/06/25 10:00 109/75 02/06/25 10:00 99 H 30 H 92 02/06/25 09:43 98/65 L 02/06/25 09:42 99 H 29 H 93 02/06/25 09:30 98 H 24 92 02/06/25 09:00 97 H 27 H 94 02/06/25 08:30 96 H 24 92 02/06/25 08:00 98 H 29 H 96 02/06/25 08:00 125/72 02/06/25 08:00 100 H 02/06/25 07:30 76 28 H 96 02/06/25 07:00 74 27 H 94 02/06/25 07:00 101/68 02/06/25 07:00 101/02/06/25 06:30 81 21 94 02/06/25 06:00 85 16 94 02/06/25 06:00 109/65 02/06/25 05:00 107/69 02/06/25 05:00 82 28 H 94 02/06/25 04:30 104 H 30 H 93 02/06/25 04:00 101 H 30 H 93 02/06/25 04:00 106/62 02/06/25 04:00 106/62 02/06/25 03:30 101 H 28 H 92 PG Care Time/CCT Total # of Minutes Spent Total Time Spent with Patient: Total time spent is greater than 50% in coordination of care (as documented) at patient's floor/unit and/or counseling patient: Coding Level of Care Code 86885 SUB INP/OBS CARE 2/35MIN Diagnoses Cerebrovascular accident (CVA) due to embolism of left middle cerebral artery I63.412 CVA mechanism: embolism Laterality of affected vessel: left Precerebral and cerebral artery: middle cerebral artery ST elevation myocardial infarction (STEMI) involving other coronary artery of inferior wall I21.19 Involved coronary artery: other inferior wall coronary artery Paroxysmal atrial fibrillation I48.0 Atrial fibrillation type: paroxysmal Benign essential hypertension I10 Coronary artery disease involving [place] coronary artery of [place] heart, unspecified whether angina present I25.10 Coronary Disease-Associated Artery/Lesion type: [place] artery [place] vs. transplanted heart: [place] heart Associated angina: unspecified whether angina present Diabetic ketoacidosis without coma associated with type 2 diabetes mellitus E11.10 Diabetes mellitus complication detail: without coma Diabetes mellitus type: type 2 Occlusion of right carotid artery I65.21 Laterality: right Hyponatremia E87.1 CKD (chronic kidney disease) stage 3, GFR 30-59 ml/min N18.30 Time Spent (min) 35 (1) Stroke CVA mechanism: embolism Laterality of affected vessel: left Precerebral and cerebral artery: middle cerebral artery Qualified Code(s): I63.412 - Cerebral infarction due to embolism of left middle cerebral artery (2) STEMI (ST elevation myocardial infarction) Involved coronary artery: other inferior wall coronary artery Qualified Code(s): I21.19 - ST elevation (STEMI) myocardial infarction involving other coronary artery of inferior wall (3) Atrial fibrillation Atrial fibrillation type: paroxysmal Qualified Code(s): I48.0 - Paroxysmal atrial fibrillation (5) Coronary artery disease Coronary Disease-Associated Artery/Lesion type: [place] artery [place] vs. transplanted heart: [place] heart Associated angina: unspecified whether angina present Qualified Code(s): I25.10 - Atherosclerotic heart disease of [place] coronary artery without angina pectoris (6) DKA (diabetic ketoacidosis) Diabetes mellitus complication detail: without coma Diabetes mellitus type: type 2 Qualified Code(s): E11.10 - Type 2 diabetes mellitus with ketoacidosis without coma (7) Carotid artery occlusion Laterality: right Qualified Code(s): I65.21 - Occlusion and stenosis of right carotid artery
[2025-02-06] MEDS: APIXABAN 5 MG TABLET PO SCH (16:50)
[2025-02-06 20:37] LABS: ANTI-Xa, UFH(UnfractionatedHep 0.72 IU/ml (0.3-0.7)
--- NOTE | 2025-02-06 20:39 | Communication Note ---
Date of Service: February 06, 2025 Notified by RN of patient developing elevated HR reaching 130-140, EKG showing a-fib w/ RVR w/ rate of 146. VS showing BP of 92/67 and O2 sat of 90%. Patient confused and only answering "yes" and "okay" which RN indicates is not new, but does not appear to be SOB or in any discomfort. Patient still on insulin drip for bsg control given recent DKA. Last BMP checked was around 14:50 and showed a level of 4.0. Magnesium level at the same time was 2.0. Given hypotension, will hold off from administering Lopressor. Ordered repeat BMP and magnesium which showed K+ of 3.9 and Mg of 2, and patient transferred to PCU for amiodarone bolus plus drip. KCl 40 mEq PO given x1. Patient then converted to SR around 2 am. Continue to monitor. Resident Activity Tracking Resident Involvement: Resident Care Provided Care Provided: Adult Hospital Medicine
[2025-02-06] MEDS ORDERED: APIXABAN 5 MG TABLET PO SCH (21:00)
[2025-02-06] MEDS ORDERED: 0.2 MICRON FILTER SET 1 EACH IV ONE ×3 (21:06→21:53)
[2025-02-06] MEDS: AMIODARONE / D5W 150 MG/100 ML BAG IV STA (21:47)
[2025-02-06] MEDS: AMIODARONE 360MG / 200ML D5W IV ONE (21:47)
[2025-02-06] MEDS: AMIODARONE / D5W 360 MG/200 ML BAG IV ONE (21:50)
[2025-02-06] MEDS ORDERED: AMIODARONE IV BOLUS & DRIP IV STA (21:53)
[2025-02-06 23:20] LABS: Anion Gap 9.0 (3-11); Blood Urea Nitrogen 18.0 mg/dl (6-23); Calcium 8.2 mg/dl (8.6-10.3); Carbon Dioxide 22.0 mmol/L (21-32); Chloride 103.0 mmol/L (98-107); Creatinine Clr Calc Pharmacy 60.4 ml/min; Glucose 194.0 mg/dl (70-99(Fasting)); Magnesium 2.0 mg/dl (1.7-2.4); Potassium 3.9 mmol/L (3.5-5.1); Sodium 134.0 mmol/L (136-145)
[2025-02-06] MEDS: POTASSIUM CHLORIDE CRTAB 20 MEQ TABCR PO STA (23:38)
[2025-02-07] MEDS: AMIODARONE / D5W 360 MG/200 ML BAG IV SCH (02:57)
[2025-02-07 07:35] LABS: Anion Gap 16.0 (3-11); Blood Urea Nitrogen 16.0 mg/dl (6-23); Calcium 7.8 mg/dl (8.6-10.3); Carbon Dioxide 21.0 mmol/L (21-32); Chloride 95.0 mmol/L (98-107); Creatinine Clr Calc Pharmacy 58.5 ml/min; Glucose 511.0 mg/dl (70-99(Fasting)); Potassium 3.6 mmol/L (3.5-5.1); Sodium 132.0 mmol/L (136-145)
[2025-02-07] MEDS: ATORVASTATIN 20 MG TAB PO SCH (09:37)
[2025-02-07 09:53] LABS: Anion Gap 8.0 (3-11); Blood Urea Nitrogen 16.0 mg/dl (6-23); Calcium 8.5 mg/dl (8.6-10.3); Carbon Dioxide 24.0 mmol/L (21-32); Chloride 105.0 mmol/L (98-107); Creatinine Clr Calc Pharmacy 65.8 ml/min; Glucose 175.0 mg/dl (70-99(Fasting)); Potassium 4.1 mmol/L (3.5-5.1); Sodium 137.0 mmol/L (136-145)
--- NOTE | 2025-02-07 10:27 | Hospitalist Progress Note ---
Date of Service February 07, 2025 Assessment & Plan (1) Stroke: Plan: Acute ischemic CVA in the left MCA distribution with associated aphasia and right hemiplegia. CT scan of the head shows evidence of ischemic stroke: MRI indeed confirms evidence of acute stroke Per neurology, can transition to p.o. Eliquis 5 mg twice daily, was on heparin drip. They recommend holding antiplatelet therapy for now due to concern for hemorrhagic conversion. Consult physical therapy Keep blood pressure less than 160/90 for 24 hours Recommend improved glycemic control, hemoglobin A1c 13.2% Repeat CT scan of the head in 2 weeks outpatient and if no evidence of intracranial hemorrhage, may now add aspirin 81 mg daily in addition to Eliquis. (2) STEMI (ST elevation myocardial infarction): Plan: Elevated troponin Echo showed evidence of wall motion abnormality Patient probably has NSTEMI however per cardiology will continue medical management for now (3) Atrial fibrillation: Plan: Prior atrial fibrillation noted during last admission. She was not discharged on AC due to GI bleeding. The plan had been to get GI clearance, then start AC, but She did not follow-up with GI. Rate is currently controlled. She is on P.o. Eliquis 5 mg twice daily. Continue telemetry. IV metoprolol ordered as needed Per cardiology, stated on amiodarone to keep her in sinus rhythm (4) Benign essential hypertension: Plan: Will keep blood pressure systolic less than 160 per neurology (5) Coronary artery disease: Plan: Prior LHC in 05/2024 with diffuse CAD. Medical management for now (6) DKA (diabetic ketoacidosis): Plan: Anion gap is resolved Blood glucose ordered better control Will transition to subcut insulin, discontinue drip Continue insulin and insulin sliding scale. (7) Carotid artery occlusion: Plan: Right-sided. Noted on CTA neck on 02/04/2025. With collateral reconstitution on the CT. Per vascular surgery, no surgical plans for now Repeat follow-up ultrasound (8) Hyponatremia: Plan: Mild on admission. Partly due to hyperglycemia. No intervention necessary at this time. Will follow (9) CKD (chronic kidney disease) stage 3, GFR 30-59 ml/min: Plan: Stable. Monitor intake and output. Serial labs Plan She will need rehab at discharge. OT and PT assessments pending Admission and Anticipated Discharge Date Admission Date: February 04, 2025 Subjective Patient seen and examined, she is aphasic both receptive and expressive although able to follow some commands Review of Systems Review of Systems: Unreliable due to aphasia Physical Exam Physical Exam: The patient is awake, alert and oriented 3, well developed and well nourished, normocephalic and atraumatic, lying in bed and in no acute distress. HEENT--PERRL, EOMI, mucous membranes and oropharynx mildly dry Neck--supple. No JVD. No bruits. Thyroid normal, trachea midline, no adenopathy. Heart--normal S1 and S2. No murmurs, rubs or gallops. Lungs--clear bilaterally, no respiratory distress, no accessory muscle use. Abdomen--normal bowel sounds and soft. Extremities--no cyanosis or clubbing. No edema. Dermatologic--normal skin turgor, normal color, no abnormal lymph nodes, no rash. Neurologic--She is aphasic Rheumatologic--normal range of motion. Psychiatric--normal affect. Results & Data Results & Data Vital Signs (Past 12 Hours) Vital Signs Temp Pulse Pulse Resp BP BP BP 02/07/25 07:35 98.4 F 88 18 107/71 02/07/25 06:00 78 25 H 02/07/25 05:00 75 15 02/07/25 04:00 79 27 H 02/07/25 03:00 89 26 H 02/07/25 02:31 98.8 F 95 H 18 105/78 02/07/25 02:30 95 H 16 02/07/25 02:30 105/78 02/07/25 02:30 105/78 02/07/25 02:30 105/78 02/07/25 02:30 105/78 02/07/25 02:30 105/78 02/07/25 02:00 112 H 22 02/07/25 01:00 125 H 30 H 02/07/25 00:00 138 H 29 H 02/07/25 00:00 133 H 02/06/25 23:00 119 H 29 H 02/06/25 22:33 98.8 F 124 H 18 98/79 L 02/06/25 22:32 98/79 L 02/06/25 22:32 98/79 L 02/06/25 22:32 98/79 L 02/06/25 22:32 98/79 L 02/06/25 22:32 98/79 L 02/06/25 22:30 134 H 28 H Pulse Ox O2 Del Method 02/07/25 07:35 94 Room Air 02/07/25 06:00 95 02/07/25 05:00 96 02/07/25 04:00 94 02/07/25 03:00 95 02/07/25 02:31 96 Room Air 02/07/25 02:30 91 02/07/25 02:30 02/07/25 02:30 02/07/25 02:30 02/07/25 02:30 02/07/25 02:30 02/07/25 02:00 93 02/07/25 01:00 94 02/07/25 00:00 94 02/07/25 00:00 02/06/25 23:00 96 02/06/25 22:33 94 Room Air 02/06/25 22:32 02/06/25 22:32 02/06/25 22:32 02/06/25 22:32 02/06/25 22:32 02/06/25 22:30 96 PG Care Time/CCT Total # of Minutes Spent Total Time Spent with Patient: Total time spent is greater than 50% in coordination of care (as documented) at patient's floor/unit and/or counseling patient: Coding Level of Care Code 95674 SUB INP/OBS CARE 235MIN Diagnoses Cerebrovascular accident (CVA) due to embolism of left middle cerebral artery I63.412 CVA mechanism: embolism Laterality of affected vessel: left Precerebral and cerebral artery: middle cerebral artery ST elevation myocardial infarction (STEMI) involving other coronary artery of inferior wall I21.19 Involved coronary artery: other inferior wall coronary artery Paroxysmal atrial fibrillation I48.0 Atrial fibrillation type: paroxysmal Benign essential hypertension I10 Coronary artery disease involving [place] coronary artery of [place] heart, unspecified whether angina present I25.10 Coronary Disease-Associated Artery/Lesion type: [place] artery [place] vs. transplanted heart: [place] heart Associated angina: unspecified whether angina present Diabetic ketoacidosis without coma associated with type 2 diabetes mellitus E11.10 Diabetes mellitus complication detail: without coma Diabetes mellitus type: type 2 Occlusion of right carotid artery I65.21 Laterality: right Hyponatremia E87.1 CKD (chronic kidney disease) stage 3, GFR 30-59 ml/min N18.30 Time Spent (min) 35 (1) Stroke CVA mechanism: embolism Laterality of affected vessel: left Precerebral and cerebral artery: middle cerebral artery Qualified Code(s): I63.412 - Cerebral infarction due to embolism of left middle cerebral artery (2) STEMI (ST elevation myocardial infarction) Involved coronary artery: other inferior wall coronary artery Qualified Code(s): I21.19 - ST elevation (STEMI) myocardial infarction involving other coronary artery of inferior wall (3) Atrial fibrillation Atrial fibrillation type: paroxysmal Qualified Code(s): I48.0 - Paroxysmal atrial fibrillation (5) Coronary artery disease Coronary Disease-Associated Artery/Lesion type: [place] artery [place] vs. transplanted heart: [place] heart Associated angina: unspecified whether angina present Qualified Code(s): I25.10 - Atherosclerotic heart disease of [place] coronary artery without angina pectoris (6) DKA (diabetic ketoacidosis) Diabetes mellitus complication detail: without coma Diabetes mellitus type: type 2 Qualified Code(s): E11.10 - Type 2 diabetes mellitus with ketoacidosis without coma (7) Carotid artery occlusion Laterality: right Qualified Code(s): I65.21 - Occlusion and stenosis of right carotid artery
[2025-02-07] MEDS: LANTUS PER UNIT CHARGE SC ONE (11:07)
[2025-02-07] MEDS: INSULIN ASPART PER UNIT CHARGE SC SCH (12:46)
--- NOTE | 2025-02-07 14:03 | Pharmacy Report ---
Pharmacy Glycemic Short Note 2 - Date of Service February 07, 2025 - Glycemic Short BSG Results (Last 24 hours): 02/06/25 02/06/25 02/06/25 14:37 14:50 17:22 Glucose 168 H POC Glucose 156 H 135 H 02/06/25 02/06/25 02/06/25 18:25 19:31 20:30 Glucose POC Glucose 172 H 186 H 184 H 02/06/25 02/06/25 02/07/25 21:26 22:31 00:26 Glucose 194 H POC Glucose 169 H 181 H 164 H 02/07/25 02/07/25 02/07/25 02:29 04:27 05:38 Glucose 511 H* POC Glucose 187 H 190 H 02/07/25 02/07/25 02/07/25 06:13 07:16 08:50 Glucose POC Glucose 160 H 172 H 163 H 02/07/25 02/07/25 02/07/25 09:07 11:16 12:09 Glucose 175 H POC Glucose 165 H 183 H 02/07/25 13:43 Glucose POC Glucose 178 H OUTPATIENT ANTIDIABETIC REGIMEN: * Lantus 30 units BID, Novolog sliding scale, Jardiance 25 mg PO QAM * A1c 13.2% 02/04/25 ASSESSMENT: 02/07: * BSGs within goal range today, AG closed. D/w hospitalist- transition to SQ. * Ordered a diet, but still minimal PO intake. D5LR discontinued this afternoon. * Insulin drip rate stable at 2.9units/hr the last 24h. Plan for Lantus 40 units SQ X 1 dose for drip transition given continued decreased PO intake. 02/06: * Patient admitted 02/04 with CVA/STEMI * Uncontrolled diabetes outpatient with A1c >13%, 4+ ketones in urine this morning, Bicarb 16, anion gap 19- BSG was 200 mg/dL- question starvation ketosis vs euglycemic ketoacidosis, patient is on jardiance (BSG range 112-206 mg/dL since admission) * Patient was started on insulin infusion at 0.035 units/kg/hr without bolus. Labs improving. * Plan to continue with insulin infusion until gap closed PLAN FOR INPATIENT GLYCEMIC CONTROL: * Hold outpatient oral diabetes medications * Basal insulin * insulin infusion (overlap with Lantus X 2h then stop) * Lantus 40 units SQ X 1 - reassess basal in AM * Bolus insulin- Novolog ACHS, CF: 30mg/dl/unit, CR: 9gm/unit
--- NOTE | 2025-02-07 22:02 | Electrocardiogram Report ---
Test Reason : Blood Pressure : */* mmHG Vent. Rate : 106 BPM Atrial Rate : * BPM P-R Int : * ms QRS Dur : 100 ms QT Int : 356 ms P-R-T Axes : * 48 16 degrees QTcB Int : 472 ms Sinus tachycardia Low voltage QRS ST elevation consider lateral injury or acute infarct ACUTE VT / STEMI Abnormal ECG When compared with ECG of 04-Feb-2025 17:39, Sinus tachycardia has replaced Atrial fibrillation Lateral ST elevation is now present Anterolateral ST elevation is no longer present Confirmed by Julio César Dickens ([id number]) on 02/07/2025 10:01:44 PM Referred By: REFERRED SELF Confirmed By: Julio César Dickens
--- NOTE | 2025-02-07 22:05 | Electrocardiogram Report ---
Test Reason : Blood Pressure : */* mmHG Vent. Rate : 146 BPM Atrial Rate : * BPM P-R Int : * ms QRS Dur : 92 ms QT Int : 318 ms P-R-T Axes : * 54 -12 degrees QTcB Int : 495 ms Atrial fibrillation with rapid ventricular response Low voltage QRS ST elevation consider lateral injury or acute infarct ACUTE FL / STEMI Abnormal ECG When compared with ECG of 06-Feb-2025 02:20, Atrial fibrillation has replaced Sinus tachycardia Confirmed by Julio César Dickens ([id number]) on 02/07/2025 10:04:47 PM Referred By: REFERRED SELF Confirmed By: Julio César Dickens
--- NOTE | 2025-02-07 22:07 | Electrocardiogram Report ---
Test Reason : Blood Pressure : */* mmHG Vent. Rate : 83 BPM Atrial Rate : 83 BPM P-R Int : 192 ms QRS Dur : 106 ms QT Int : 370 ms P-R-T Axes : 36 35 26 degrees QTcB Int : 434 ms Sinus rhythm with Premature atrial complexes Low voltage QRS Nonspecific ST and T wave abnormality Abnormal ECG When compared with ECG of 06-Feb-2025 20:11, Sinus rhythm has replaced Atrial fibrillation Vent. rate has decreased by [address] is now less elevated in lateral leads Confirmed by Julio César Dickens ([id number]) on 02/07/2025 10:06:50 PM Referred By: REFERRED SELF Confirmed By: Julio César Dickens
[2025-02-08 06:59] LABS: Anion Gap 10.0 (3-11); Blood Urea Nitrogen 14.0 mg/dl (6-23); Calcium 8.3 mg/dl (8.6-10.3); Carbon Dioxide 22.0 mmol/L (21-32); Chloride 101.0 mmol/L (98-107); Creatinine Clr Calc Pharmacy 65.2 ml/min; Glucose 163.0 mg/dl (70-99(Fasting)); Potassium 4.4 mmol/L (3.5-5.1); Sodium 133.0 mmol/L (136-145)
--- NOTE | 2025-02-08 10:38 | Hospitalist Progress Note ---
Date of Service February 08, 2025 Assessment & Plan (1) Stroke: Plan: Acute ischemic CVA in the left MCA distribution with associated aphasia and right hemiplegia. CT scan of the head shows evidence of ischemic stroke: MRI indeed confirms evidence of acute stroke Per neurology, can transition to p.o. Eliquis 5 mg twice daily, was on heparin drip. They recommend holding antiplatelet therapy for now due to concern for hemorrhagic conversion. Continue PT Recommend improved glycemic control, hemoglobin A1c 13.2% Repeat CT scan of the head in 2 weeks outpatient and if no evidence of intracranial hemorrhage, may now add aspirin 81 mg daily in addition to Eliquis. Her aphasia seems to be improving (2) STEMI (ST elevation myocardial infarction): Plan: Elevated troponin Echo showed evidence of wall motion abnormality Patient probably has NSTEMI however per cardiology will continue medical management for now (3) Atrial fibrillation: Plan: Prior atrial fibrillation noted during last admission. She was not discharged on AC due to GI bleeding. The plan had been to get GI clearance, then start AC, but She did not follow-up with GI. Rate is currently controlled. She is on P.o. Eliquis 5 mg twice daily. Continue telemetry. IV metoprolol ordered as needed Per cardiology, stated on amiodarone to keep her in sinus rhythm (4) Benign essential hypertension: Plan: Will keep blood pressure systolic less than 160 per neurology (5) Coronary artery disease: Plan: Prior C in 05/2024 with diffuse CAD. Medical management for now (6) DKA (diabetic ketoacidosis): Plan: Anion gap is resolved Blood glucose ordered better control Now on subcut insulin, Continue insulin and insulin sliding scale. (7) Carotid artery occlusion: Plan: Right-sided. Noted on CTA neck on 02/04/2025. With collateral reconstitution on the CT. Per vascular surgery, no surgical plans for now Repeat follow-up ultrasound (8) Hyponatremia: Plan: Mild on admission. Partly due to hyperglycemia. No intervention necessary at this time. Will follow (9) CKD (chronic kidney disease) stage 3, GFR 30-59 ml/min: Plan: Stable. Monitor intake and output. Serial labs Plan She will need rehab at discharge. OT and PT assessments pending Admission and Anticipated Discharge Date Admission Date: February 04, 2025 Subjective Patient seen and examined, she is aphasic , but seems to have improved Review of Systems Review of Systems: All systems reviewed are negative, apart from the ones contained in the history. Physical Exam Physical Exam: The patient is awake, alert and oriented 3, well developed and well nourished, normocephalic and atraumatic, lying in bed and in no acute distress. HEENT--PERRL, EOMI, mucous membranes and oropharynx mildly dry Neck--supple. No JVD. No bruits. Thyroid normal, trachea midline, no adenopathy. Heart--normal S1 and S2. No murmurs, rubs or gallops. Lungs--clear bilaterally, no respiratory distress, no accessory muscle use. Abdomen--normal bowel sounds and soft. Extremities--no cyanosis or clubbing. No edema. Dermatologic--normal skin turgor, normal color, no abnormal lymph nodes, no rash. Neurologic--She is aphasic Rheumatologic--normal range of motion. Psychiatric--normal affect. Results & Data Results & Data Vital Signs (Past 12 Hours) Vital Signs Temp Pulse Pulse Resp BP BP Pulse Ox 02/08/25 07:58 98.2 F 80 21 124/76 93 02/08/25 07:10 78 02/08/25 02:49 98.2 F 79 22 115/71 93 02/07/25 23:20 98.6 F 82 18 101/71 93 O2 Del Method 02/08/25 07:58 Room Air 02/08/25 07:10 02/08/25 02:49 Room Air 02/07/25 23:20 Room Air PG Care Time/CCT Total # of Minutes Spent Total Time Spent with Patient: Total time spent is greater than 50% in coordination of care (as documented) at patient's floor/unit and/or counseling patient: Coding Level of Care Code 40008 SUB INP/OBS CARE 2/35MIN Diagnoses Cerebrovascular accident (CVA) due to embolism of left middle cerebral artery I63.412 CVA mechanism: embolism Laterality of affected vessel: left Precerebral and cerebral artery: middle cerebral artery ST elevation myocardial infarction (STEMI) involving other coronary artery of inferior wall I21.19 Involved coronary artery: other inferior wall coronary artery Paroxysmal atrial fibrillation I48.0 Atrial fibrillation type: paroxysmal Benign essential hypertension I10 Coronary artery disease involving [place] coronary artery of [place] heart, unspecified whether angina present I25.10 Coronary Disease-Associated Artery/Lesion type: [place] artery [place] vs. transplanted heart: [place] heart Associated angina: unspecified whether angina present Diabetic ketoacidosis without coma associated with type 2 diabetes mellitus E11.10 Diabetes mellitus complication detail: without coma Diabetes mellitus type: type 2 Occlusion of right carotid artery I65.21 Laterality: right Hyponatremia E87.1 CKD (chronic kidney disease) stage 3, GFR 30-59 ml/min N18.30 Time Spent (min) 35 (1) Stroke CVA mechanism: embolism Laterality of affected vessel: left Precerebral and cerebral artery: middle cerebral artery Qualified Code(s): I63.412 - Cerebral infarction due to embolism of left middle cerebral artery (2) STEMI (ST elevation myocardial infarction) Involved coronary artery: other inferior wall coronary artery Qualified Code(s): I21.19 - ST elevation (STEMI) myocardial infarction involving other coronary artery of inferior wall (3) Atrial fibrillation Atrial fibrillation type: paroxysmal Qualified Code(s): I48.0 - Paroxysmal atrial fibrillation (5) Coronary artery disease Coronary Disease-Associated Artery/Lesion type: [place] artery [place] vs. tr ansplanted heart: [place] heart Associated angina: unspecified whether angina present Qualified Code(s): I25.10 - Atherosclerotic heart disease of [place] coronary artery without angina pectoris (6) DKA (diabetic ketoacidosis) Diabetes mellitus complication detail: without coma Diabetes mellitus type: type 2 Qualified Code(s): E11.10 - Type 2 diabetes mellitus with ketoacidosis without coma (7) Carotid artery occlusion Laterality: right Qualified Code(s): I65.21 - Occlusion and stenosis of right carotid artery
--- NOTE | 2025-02-08 12:03 | Pharmacy Report ---
Pharmacy Glycemic Short Note 2 - Date of Service February 08, 2025 - Glycemic Short BSG Results (Last 24 hours): 02/07/25 02/07/25 02/07/25 12:09 13:43 16:09 Glucose POC Glucose 183 H 178 H 196 H 02/07/25 02/08/25 02/08/25 20:06 06:13 07:21 Glucose 163 H POC Glucose 169 H 145 H 02/08/25 11:21 Glucose POC Glucose 149 H OUTPATIENT ANTIDIABETIC REGIMEN: * Lantus 30 units BID, Novolog sliding scale, Jardiance 25 mg PO QAM * A1c 13.2% 02/04/25 ASSESSMENT: 02/08: * BSGs 586-383-369-149mg/dl the last 24h. Insulin drip transitioned to SQ yesterday. Received 40 units of SQ basal and 7 units of SQ bolus insulin. * Diet ordered, but continues with minimal PO intake. * Given BSGs down-trending/continued decreased PO, and historic glycemic admission data showing that she typically receives 15 units or less of basal insulin per day in the hospital, will decrease Lantus to 15 units. Will add an HS scale if BSG >200mg/dL. 02/07: * BSGs within goal range today, AG closed. D/w hospitalist- transition to SQ. * Ordered a diet, but still minimal PO intake. D5LR discontinued this afternoon. * Insulin drip rate stable at 2.9units/hr the last 24h. Plan for Lantus 40 units SQ X 1 dose for drip transition given continued decreased PO intake. 02/06: * Patient admitted 02/04 with CVA/STEMI * Uncontrolled diabetes outpatient with A1c >13%, 4+ ketones in urine this morning, Bicarb 16, anion gap 19- BSG was 200 mg/dL- question starvation ketosis vs euglycemic ketoacidosis, patient is on jardiance (BSG range 112-206 mg/dL since admission) * Patient was started on insulin infusion at 0.035 units/kg/hr without bolus. Labs improving. * Plan to continue with insulin infusion until gap closed PLAN FOR INPATIENT GLYCEMIC CONTROL: * Hold outpatient oral diabetes medications * Basal insulin * Lantus 15 units SQ X 1 + HS scale depending on BSG * Bolus insulin- Novolog ACHS, CF: 30mg/dl/unit, CR: 9gm/unit
[2025-02-08] MEDS: LANTUS PER UNIT CHARGE SC SCH ×2 (12:19→21:14)
[2025-02-08] MEDS: AMIODARONE 200 MG TAB PO SCH (16:48)
[2025-02-09 07:07] LABS: Anion Gap 8.0 (3-11); Blood Urea Nitrogen 14.0 mg/dl (6-23); Calcium 8.3 mg/dl (8.6-10.3); Carbon Dioxide 25.0 mmol/L (21-32); Chloride 103.0 mmol/L (98-107); Creatinine Clr Calc Pharmacy 67.6 ml/min; Glucose 109.0 mg/dl (70-99(Fasting)); Potassium 3.9 mmol/L (3.5-5.1); Sodium 136.0 mmol/L (136-145)
[2025-02-09 07:36] VITALS: RESP 18; TEMP 98.2; O2SAT 93
[2025-02-09] MEDS: LANTUS PER UNIT CHARGE SC SCH (09:07)
[2025-02-09] MEDS: POLYETHYLENE (MIRALAX) 17 GM PACK PO SCH (10:08)
--- NOTE | 2025-02-09 11:23 | Pharmacy Report ---
Pharmacy Glycemic Short Note 2 - Date of Service February 09, 2025 - Glycemic Short BSG Results (Last 24 hours): 02/08/25 02/08/25 02/08/25 11:21 16:12 20:37 Glucose POC Glucose 149 H 199 H 139 H 02/09/25 02/09/25 02/09/25 05:41 07:29 11:13 Glucose 109 H POC Glucose 149 H 185 H OUTPATIENT ANTIDIABETIC REGIMEN: * Lantus 30 units BID, Novolog sliding scale, Jardiance 25 mg PO QAM * A1c 13.2% 02/04/25 ASSESSMENT: 02/09: * Fasting AM glucose 109, controlled * Continue 15 units insulin glargine QAM for now, monitor for adjustment as needed * Glucose values 109-199 in past 24 hours * Given only a couple values slightly above 180 mg/dL, continue with CF/CR of / for meal coverage * Patient eating more consistently now * Will monitor PO intake and glucose values to adjust regimen as needed * T2DM diet 02/08: * BSGs 896-789-211-149mg/dl the last 24h. Insulin drip transitioned to SQ yesterday. Received 40 units of SQ basal and 7 units of SQ bolus insulin. * Diet ordered, but continues with minimal PO intake. * Given BSGs down-trending/continued decreased PO, and historic glycemic admission data showing that she typically receives 15 units or less of basal insulin per day in the hospital, will decrease Lantus to 15 units. Will add an HS scale if BSG >200mg/dL. 02/07: * BSGs within goal range today, AG closed. D/w hospitalist- transition to SQ. * Ordered a diet, but still minimal PO intake. D5LR discontinued this afternoon. * Insulin drip rate stable at 2.9units/hr the last 24h. Plan for Lantus 40 units SQ X 1 dose for drip transition given continued decreased PO intake. 02/06: * Patient admitted 02/04 with CVA/STEMI * Uncontrolled diabetes outpatient with A1c >13%, 4+ ketones in urine this morning, Bicarb 16, anion gap 19- BSG was 200 mg/dL- question starvation ketos is vs euglycemic ketoacidosis, patient is on jardiance (BSG range 112-206 mg/dL since admission) * Patient was started on insulin infusion at 0.035 units/kg/hr without bolus. Labs improving. * Plan to continue with insulin infusion until gap closed PLAN FOR INPATIENT GLYCEMIC CONTROL: * Hold outpatient oral diabetes medications * Basal insulin * Lantus 15 units SQ QAM * Bolus insulin- Novolog ACHS, CF: 30mg/dl/unit, CR: 9gm/unit
--- NOTE | 2025-02-09 12:07 | Discharge Summary ---
Date of Service February 09, 2025 Admission HPI Per Admitting Provider Ms. Hay is a 64yo F w/ hx of DM, PAD, and HTN who presents with altered mental status and likely STEMI. The patient is largely aphasic and only answers in a few, sporadic, random words. Her reports that she had been ill on Thursday and . He reports she told him she was having left-sided neck pain, but denies cough, fevers/chills, or any other specific complaints. She mostly spent those days in bed. The reports that she did get up on Thursday and helped make breakfast. He is not super specific, but it does sound like she was not her usual self on Thursday, as he reports she was stumbling around and not herself. He went to work today without seeing her, and his brother checked on his around 11:30am this morning and phoned him saying she was aphasic at that time. The patient herself cannot provide an ROS. She answers questions with random responses, including "Open!" "Yeah!" & "Time!" Admission Exam (Per Admitting) Constitutional The patient is awake, alert and oriented 3, well developed and well nourished, normocephalic and atraumatic, lying in bed and in no acute distress. HEENT--PERRL, EOMI, mucous membranes and oropharynx mildly dry Neck--supple. No JVD. No bruits. Thyroid normal, trachea midline, no adenopathy. Heart--normal S1 and S2. No murmurs, rubs or gallops. Lungs--clear bilaterally, no respiratory distress, no accessory muscle use. Abdomen--normal bowel sounds and soft. Extremities--no cyanosis or clubbing. No edema. Dermatologic--normal skin turgor, normal color, no abnormal lymph nodes, no rash. Neurologic--cranial nerves II through XII grossly intact. Rheumatologic--normal range of motion. Psychiatric--normal affect. 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 CT scan of the head shows evidence of ischemic stroke: MRI indeed confirms evidence of acute stroke Per neurology, can transition to p.o. Eliquis 5 mg twice daily, was on heparin drip. They recommend holding antiplatelet therapy for now due to concern for hemorrhagic conversion. Continue PT Recommend improved glycemic control, hemoglobin A1c 13.2% Repeat CT scan of the head in 2 weeks outpatient and if no evidence of intracranial hemorrhage, may now add aspirin 81 mg daily in addition to Eliquis. Her aphasia Continues to improve Will discharge her to rehab to continue physical therapy and also speech therapy (2) STEMI (ST elevation myocardial infarction): Elevated troponin Echo showed evidence of wall motion abnormality Patient probably has NSTEMI however per cardiology will continue medical management for now (3) Atrial fibrillation: Prior atrial fibrillation noted during last admission. She was not discharged on AC due to GI bleeding. The plan had been to get GI clearance, then start AC, but She did not follow-up with GI. Rate is currently controlled. She is on P.o. Eliquis 5 mg twice daily. Continue telemetry. IV metoprolol ordered as needed Per cardiology, stated on amiodarone to keep her in sinus rhythm (4) Benign essential hypertension: Will keep blood pressure systolic less than 160 per neurology (5) Coronary artery disease: Prior C in 05/2024 with diffuse CAD. Medical management for now (6) DKA (diabetic ketoacidosis): Anion gap is resolved Blood glucose ordered better control Now on subcut insulin, Continue insulin and insulin sliding scale. (7) Carotid artery occlusion: Right-sided. Noted on CTA neck on 02/04/2025. With collateral reconstitution on the CT. Per vascular surgery, no surgical plans for now Repeat follow-up ultrasound (8) Hyponatremia: Mild on admission. Partly due to hyperglycemia. No intervention necessary at this time. Will follow (9) CKD (chronic kidney disease) stage 3, GFR 30-59 ml/min: Stable. Monitor intake and output. Serial labs Plan Discharge to rehab Coding Level of Care Code 40722 INP/OBS DISCH >30 MIN Diagnoses Cerebrovascular accident (CVA) due to embolism of left middle cerebral artery I63.412 CVA mechanism: embolism Laterality of affected vessel: left Precerebral and cerebral artery: middle cerebral artery ST elevation myocardial infarction (STEMI) involving other coronary artery of inferior wall I21.19 Involved coronary artery: other inferior wall coronary artery Paroxysmal atrial fibrillation I48.0 Atrial fibrillation type: paroxysmal Benign essential hypertension I10 Coronary artery disease involving nondalton coronary artery of nondalton heart, unspecified whether angina present I25.10 Coronary Disease-Associated Artery/Lesion type: nondalton artery [place] vs. transplanted heart: nondalton heart Associated angina: unspecified whether angina present Diabetic ketoacidosis without coma associated with type 2 diabetes mellitus E11.10 Diabetes mellitus complication detail: without coma Diabetes mellitus type: type 2 Occlusion of right carotid artery I65.21 Laterality: right Hyponatremia E87.1 CKD (chronic kidney disease) stage 3, GFR 30-59 ml/min N18.30 Time Spent (min) 35
[2025-02-09 12:59] VITALS: BP 124/76; PULSE 81
== END 2025-02-09 14:28 | DRG 64 ==
LOC: ED 15:14 → 1E 18:13 → SUATTDRO 18:13 → 1E 20:17 → 2W 02-06 15:46 → 2E 02-06 21:44

== ENCOUNTER 2025-03-03 17:09 | Inpatient (IN) ==
[2025-03-03 18:13] LABS: Base Excess VBG 0.7 mEq/L; HCO3 VBG 28 mmol/L; Oxygen Saturation VBG < 60.0 %; PCO2 VBG 54 mmHg (38-50); PO2 VBG 20 mmHg; pH VBG 7.32 (7.36-7.41)
[2025-03-03 18:19] LABS: Hematocrit (blood only) 34.6 % (37.0-47.0); Hemoglobin 10.5 g/dL (12.0-16.0); Immature Granulocytes # (auto) 0.02 K/uL (0.01-0.20); Immature Granulocytes % (auto) 0.3 %; Mean Corpuscular Hemoglobin 27.0 pg (25.0-34.0); Mean Corpuscular Volume 88.9 fL (80.0-100.0); Platelet Count 307 K/uL (130-400); RDW Standard Deviation 47.8 fL (36.4-46.3); Red Blood Count 3.89 M/uL (4.20-5.40); White Blood Count 5.93 K/ul (4.8-10.8)
[2025-03-03 18:37] LABS: Alanine Aminotransferase 51.0 U/L (7-52); Albumin Globulin Ratio 1.0 (0.9-2); Albumin Level 3.1 gm/dl (3.4-5.0); Alkaline Phosphatase 119.0 U/L (34-104); Anion Gap 8.0 (3-11); Bilirubin,Total 0.5 mg/dl (0.2-1.0); Blood Urea Nitrogen 20.0 mg/dl (6-23); Calcium 8.5 mg/dl (8.6-10.3); Carbon Dioxide 28.0 mmol/L (21-32); Chloride 105.0 mmol/L (98-107); Creatinine Clr Calc Pharmacy 49.6 ml/min; Globulin 3.2 gm/dl (2.5-4.0); Glucose 123.0 mg/dl (70-99(Fasting)); Magnesium 2.2 mg/dl (1.7-2.4); Potassium 4.6 mmol/L (3.5-5.1); Sodium 141.0 mmol/L (136-145); Total Protein 6.3 gm/dl (6.0-8.3)
--- NOTE | 2025-03-03 18:39 | XRay Report ---
Clinical History: Dyspnea Technique: A frontal view of the chest was obtained Findings: There is suspected pulmonary edema. There is more focal right lung base opacity. The heart is enlarged. No definite pneumothorax is seen. There is a possible small left small effusion No fracture is noted. No foreign body is seen Impression: 1. Cardiomegaly and pulmonary edema 2. Possible right lower lobe pneumonia 3. Small left pleural effusion ACT 112: Positive. There are findings on this exam that require communication between the performing entity and the patient following Patient Test Result Information Act ([place] ACT 112) guidelines. Electronically signed by Sesar Loza 03-03-2025 6:38 PM
[2025-03-03 18:49] LABS: INR 1.2 (0.9-1.1); Partial Thromboplastin Time 31 Seconds (21-31); Prothrombin Time 13.0 Seconds (9.0-12.0)
--- NOTE | 2025-03-03 18:54 | Emergency Department Note ---
Impression & Plan Acute respiratory failure with hypoxia and hypercapnia, Acute exacerbation of CHF (congestive heart failure), Pleural effusion, JOLENE (acute kidney injury) ED Provider Note NAME: RAJ PARADA AGE: 64 SEX: F : 1960 ARRIVES VIA: Walk-In INFORMANT: Patient, ED PROVIDER(S): Misael Elliott DO CHIEF COMPLAINT: Dyspnea HPI: This is a 64-year-old female with the PMHx of recent NSTEMI as well as CVA, paroxysmal atrial fibrillation on chronic anticoagulation with apixaban, poorly controlled IDDM2, HTN, CKD and vascular disease presenting to [facility] for further evaluation of dyspnea. Patient is accompanied by her who provide additional history. Patient is reporting dyspnea. She is unsure why she is here. reports that home health was in for occupational therapy today. They noted her to be hypoxic. Patient reports dyspnea at rest. This worsens with any type of exertional activity. reporting worsening lower extremity swelling. They deny fever or chills. No cough or congestion. Denies chest pain or palpitations. They deny abdominal pain, nausea and vomiting. No urinary complaints. No recent changes in bowel movements. Patient denies recent changes in medications or OTC supplements. Patient offers no other complaints, today. ADDITIONAL HISTORY OBTAINED: Per HPI Chronic Medical/Social Conditions Affecting Care: Per HPI PAST MEDICAL HISTORY: See Below PAST SURGICAL HISTORY: See Below FAMILY HISTORY: See Below SOCIAL HISTORY: See Below HOME MEDICATIONS: See Below ALLERGIES: See Below VITALS: See Below PHYSICAL EXAMINATION: GENERAL: Sitting up in bed, alert, well appearing, well nourished, no distress, non-toxic EYE EXAM: normal conjunctiva. PERRL and EOM's grossly intact. OROPHARYNX: no exudate, no erythema, lips, buccal mucosa, and tongue normal and mucous membranes are moist NECK: supple, no nuchal rigidity, no adenopathy, non-tender LUNGS: Diminished BS in all lung childress. Normal chest wall mechanics HEART: no murmurs, regular rate, regular rhythm ABDOMEN: abdomen soft, non-tender, no masses, no rebound or guarding. BACK: Back is symmetrical on inspection and there is no deformity, no midline tenderness, no CVA tenderness. SKIN: no rashes and no bruising UPPER EXTREMITIES: upper extremities are grossly normal. LOWER EXTREMITIES: No pitting edema. NEURO EXAM: Normal sensorium, GCS 15, normal speech, no gross weakness of arms, no gross weakness of legs. She does seem mildly confused and inattentive. provides majority of history. MEDICAL DECISION MAKING: Differential diagnoses includes but not limited to ACS, unstable angina, dysrhythmia, PNA, hypervolemia/pulmonary edema, CHF exacerbation, COPD exacerbation, PE, pneumothorax, pericardial effusion, cardiac tamponade, anxiety/psychogenic, viral URI In summary, this is a 64 year old female who presented with dyspnea. Differential as above. Nursing notes and pertinent past medical records reviewed. Vital signs reviewed and the patient is hypoxic but otherwise afebrile and hemodynamically stable. History and presentation revealed as above. Reviewed documentation from prior hospital admission. Appears the patient did have an acute ischemic stroke. Patient was complicated by an NSTEMI. Patient does have new heart failure. Patient was discharged to rehabilitation services at [facility] Does appear the patient was discharged home prior to [facility] and has been receiving home health since that time. Physical examination revealed Evidence of hypervolemia. As a result of my initial evaluation, the patient's physical examination and presentation today are consistent with likely CHF exacerbation but difficult to rule out other etiologies. Would consider PE but felt to be less likely given compliance with chronic anticoagulation. Will proceed with labs as well as chest x-ray. IV access was established and the patient was placed on CCRM. Therapeutics ordered include oxygenation support. Diagnostics interpreted by me include EKG and cardiac monitoring as listed below: -Cardiac Monitoring: An order was placed for continuous cardiac monitoring. The monitor shows a rate of 70-90 with regular rhythm. -ECG: Normal sinus rhythm at a ventricular rate of 87 bpm. There is a first- degree AV block. Left axis deviation noted. No significant ST segment changes to suggest STEMI. Patient completed laboratory studies and imaging. Chest x-ray was independently interpreted by me as possible bilateral pleural effusions with interstitial edema. Radiology does read possible pneumonia. She does not necessarily have symptoms of pneumonia. Given the patient's acute hypoxic respiratory failure of unclear etiology, we will proceed with CT PE study for further evaluation. Although this study was ordered, I do feel the patient's symptoms are more likely explained by CHF. Results independently interpreted by me are No significant leukocytosis. She does have stable anemia. Relatively normal coagulation studies. BNP is significantly elevated. Troponin is elevated but stable on repeat. No significant EKG changes to suggest ACS. Patient does have an JOLENE. No electrolyte derangements. LFTs are normal. The patient was managed with oxygen support with low-flow nasal cannula. This showed significant improvement in the patient's oxygenation status. She does have mild CO2 retention on VBG with mild acidosis. I do feel that the patient does not need further management of this at this time. I do feel this should improve. Patient was managed with IV diuresis as she appears hypervolemic on physical examination which correlates with the patient's physical exam findings, labs and imaging. CT PE study was independently interpreted by me as negative for large saddle pulmonary embolism. While the CT PE study did not demonstrate a pulmonary embolism or pneumonia, it does endorse in support diagnosis of CHF exacerbation with interstitial edema and bilateral pleural effusions. Ultimately, the decision was made to admit the patient for acute hypoxic hypercapnic respiratory failure secondary to CHF exacerbation. I discussed the case with the hospitalist service via telephone/TigerText and they are agreeable to admit the patient to their services. Based on the above, including the patient's age, coexisting illnesses, labs, imaging, and exam findings the decision to treat as an inpatient. I discussed the patient with the hospitalist team who recommended admission to their services. They received the medications, treatments, interventions indicated above and their condition remained guarded. I discussed my findings with the patient and their family and they understand and agree with the treatment plan. All patient / family questions were answered to their satisfaction. Consults/Care Managements Discussions: Per [facility] ER treatment provided: See above Procedures: None Critical Care: I have personally spent 40 minutes of critical care time in direct management of this patient. This includes bedside care, interpretation of diagnostic studies, and testing, discussion with consultants, patient, and family members, and other require inpatient management activities. This 40 minutes is in excess of all separately billable procedures. The chart was completed utilizing [employer] Speech voice recognition software. Grammatical errors, random word insertions, pronoun errors, and incomplete sentences are an occasional consequence of this system due to software limitations, ambient noise, and hardware issues. Any formal questions or concerns about the content, text, or information contained within the body of this dictation should be directly addressed to the physician for clarification. Past Med/Surg History Problem List (Updated 03/04/25 @ 02:34 by Misael Elliott DO) JOLENE (acute kidney injury) (Acute) Pleural effusion (Acute) Acute exacerbation of CHF (congestive heart failure) (Acute) Acute respiratory failure with hypoxia and hypercapnia (Acute) Acute cerebrovascular accident (CVA) due to embolism of left middle cerebral artery Ischemic cerebrovascular accident (CVA) CKD (chronic kidney disease) stage 3, GFR 30-59 ml/min Acute renal failure Hyponatremia Carotid artery occlusion Atrial fibrillation Acute non-ST elevation myocardial infarction (NSTEMI) (Acute) Acute hyperglycemia (Acute) Acute hyponatremia (Acute) Leukocytosis (Acute) Sepsis (Acute) Stroke (Acute) Wound of right foot Coronary artery disease Benign essential hypertension MRSA pneumonia PAF (paroxysmal atrial fibrillation) Osteomyelitis of right foot Uncontrolled type 2 diabetes mellitus with hyperglycemia STEMI (ST elevation myocardial infarction) DKA (diabetic ketoacidosis) (Acute) Shock circulatory Atherogenic dyslipidemia Non-ST elevation [place] (NSTEMI) Metabolic encephalopathy Influenza A Acute osteomyelitis of toe (Acute) Medical History Acute kidney injury Anemia PAD (peripheral artery disease) Sepsis Osteoporosis Hypertension Neuropathy T2DM (type 2 diabetes mellitus) Social History Smoking Status: Never smoker Second Hand Exposure: No; Do You Dip or Chew Tobacco: No; Hx Alcohol Use: No Hx Substance Use: No Preferred Language: Kyrgyz Communication Ability: Effective Communication Ability Comment: aphasic 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 Beliefs That Will Affect Care: None Current Living Situation: Spouse Current Living Situation Comment: with spouse Other Information That Helps Us Care for You: No Feels Safe at Home: Yes Assistive Devices: Glasses and Oxygen - Continuous Allergies Allergies Allergy/AdvReac Type Severity Reaction Status Date / Time amoxicillin [From Augmentin] Allergy Intermediate Rash Verified 02/04/25 16:28 clavulanic acid Allergy Intermediate Rash Verified 02/04/25 16:28 [From Augmentin] Home Meds Home Medications Medication Instructions Recorded Confirmed ergocalciferol (vitamin D2) 1,250 50,000 unit PO Q14D 12/14/23 03/03/25 mcg (50,000 unit) capsule insulin glargine 100 unit/mL (3 30 unit subcut BID 12/14/23 03/03/25 mL) subcutaneous pen (Lantus Solostar U-100 Insulin) metoprolol succinate 50 mg 50 mg PO DAILY 12/14/23 03/03/25 tablet,extended release 24 hr risedronate 150 mg tablet 150 mg PO MONTHLY 12/14/23 03/03/25 tramadol 50 mg tablet 50 mg PO Q6H PRN Pain 12/14/23 03/03/25 empagliflozin 25 mg tablet 25 mg PO QAM 05/23/24 03/03/25 (Jardiance) atorvastatin 20 mg tablet 20 mg PO QPM 02/04/25 03/03/25 furosemide 20 mg tablet 20 mg PO DAILY 02/04/25 03/03/25 insulin aspart U-100 100 unit/mL 0 sliding scale dose subcut TIDM 02/04/25 03/03/25 (3 mL) subcutaneous pen (Novolog FlexPen U-100 Insulin aspart) vit A 7,160 unit-vit C 113 mg-vit 1 tab PO DAILY 02/04/25 03/03/25 E 100 [id number] tablet amiodarone 200 mg tablet 200 mg PO BID 03/03/25 03/03/25 gabapentin 300 mg capsule 300 mg PO BID 03/03/25 03/03/25 Previous Rx's Medication Instructions Recorded aspirin 81 mg tablet,delayed 81 mg PO DAILY #30 tabs 01/14/24 release (Adult Aspirin Regimen) apixaban 5 mg tablet (Eliquis) 5 mg PO BID #60 tabs 02/09/25 Results & Data (ED) Vital Signs Vital Signs - 24 hr 03/03/25 17:29 03/03/25 18:24 03/03/25 18:33 Temperature 36.3 C L Temperature Source Skin Pulse Rate 88 84 85 Pulse Rate [Right Finger] Pulse Rate from SpO2 Sensor 85 Respiratory Rate 16 24 Respiratory Effort / Characteristics Respiratory Depth Respiratory Pattern Blood Pressure 135/85 148/96 H Blood Pressure [Right Arm] Blood Pressure Mean 101 113 Blood Pressure Mean [Right Arm] Blood Pressure Position Semi-fowlers Blood Pressure Position [Right Arm] Pulse Oximetry 83 L 94 Oxygen Delivery Method Room Air Nasal Cannula Oxygen Flow Rate 2 Sepsis Recent Fever Within 48 Hours No Sepsis New/Unexplained Change in Mental Status N/A Sepsis Action Taken by Nursing No Action Required 03/03/25 18:33 03/03/25 19:10 03/03/25 19:25 Temperature Temperature Source Pulse Rate 87 83 Pulse Rate [Right Finger] Pulse Rate from SpO2 Sensor 83 Respiratory Rate 21 30 H Respiratory Effort / Characteristics Non-Labored Respiratory Depth Normal Respiratory Pattern Regular Blood Pressure 148/96 H 150/94 H Blood Pressure [Right Arm] Blood Pressure Mean 118 112 Blood Pressure Mean [Right Arm] Blood Pressure Position Blood Pressure Position [Right Arm] Pulse Oximetry 100 95 Oxygen Delivery Method Oxygen Flow Rate Sepsis Recent Fever Within 48 Hours Sepsis New/Unexplained Change in Mental Status Sepsis Action Taken by Nursing 03/03/25 21:00 03/03/25 21:12 Temperature Temperature Source Pulse Rate Pulse Rate [Right Finger] 81 84 Pulse Rate from SpO2 Sensor Respiratory Rate 24 24 Respiratory Effort / Characteristics SOB on Exertion Respiratory Depth Respiratory Pattern Blood Pressure Blood Pressure [Right Arm] 148/91 H 145/92 H Blood Pressure Mean Blood Pressure Mean [Right Arm] 110 109 Blood Pressure Position Blood Pressure Position [Right Arm] Semi-fowlers Pulse Oximetry 95 97 Oxygen Delivery Method Nasal Cannula Oxygen Flow Rate 2 Sepsis Recent Fever Within 48 Hours Sepsis New/Unexplained Change in Mental Status Sepsis Action Taken by Nursing Laboratory Data 03/03/25 17:50 03/03/25 17:50 Lab Results 03/03/25 03/03/25 03/03/25 Range/Units 17:50 18:20 19:35 WBC 5.93 (4.8-10.8) K/ul RBC 3.89 L (4.20-5.40) M/uL Hgb 10.5 L (12.0-16.0) g/dL Hct 34.6 L (37.0-47.0) % MCV 88.9 (80.0-100.0) fL MCH 27.0 (25.0-34.0) pg MCHC 30.3 L (32.0-36.0) g/dL RDW Std Deviation 47.8 H (36.4-46.3) fL RDW Coeff of Nichol 14.8 H (11.5-14.5) % Plt Count 307 (130-400) K/uL MPV 11.1 (9.4-12.4) fL Immature Gran % (Auto) 0.3 % Neut % (Auto) 63.0 % Lymph % (Auto) 20.9 % [place] % (Auto) 11.6 % Eos % (Auto) 3.2 % Baso % (Auto) 1.0 % Neut # (Auto) 3.73 (1.40-6.50) K/uL Lymph # (Auto) 1.24 (1.20-3.40) K/uL [place] # (Auto) 0.69 H (0.11-0.59) K/uL Eos # (Auto) 0.19 (0.00-0.50) K/uL Baso # (Auto) 0.06 (0.00-0.20) K/uL Immature Gran # (Auto) 0.02 (0.01-0.20) K/uL PT 13.0 H (9.0-12.0) Seconds INR 1.2 H (0.9-1.1) APTT 31 (21-31) Seconds PTT Ratio 1.1 VBG pH 7.32 L (7.36-7.41) VBG pCO2 54 H (38-50) mmHg VBG pO2 20 mmHg VBG HCO3 28 mmol/L VBG O2 Saturation < 60.0 % VBG Base Excess 0.7 mEq/L Sodium 141 (136-145) mmol/L Potassium 4.6 (3.5-5.1) mmol/L Chloride 105 (98-107) mmol/L Carbon Dioxide 28 (21-32) mmol/L Anion Gap 8 (3-11) BUN 20 (6-23) mg/dl Creatinine 1.24 H (0.6-1.2) mg/dl Est Cr Clr Drug Dosing 49.6 ml/min eGFR 48.90 BUN/Creatinine Ratio 16.1 (10-20) Glucose 123 H (70-99(Fasting)) mg/dl Calcium 8.5 L (8.6-10.3) mg/dl Magnesium 2.2 (1.7-2.4) mg/dl Total Bilirubin 0.5 (0.2-1.0) mg/dl AST 30 (13-39) U/L ALT 51 (7-52) U/L Alkaline Phosphatase 119 H (34-104) U/L Troponin I High Sens 49.7 H 50.1 H* (0-14) pg/ml B-Natriuretic Peptide 2170 H (0-100) pg/ml Total Protein 6.3 (6.0-8.3) gm/dl Albumin 3.1 L (3.4-5.0) gm/dl Globulin 3.2 (2.5-4.0) gm/dl Albumin/Globulin Ratio 1.0 (0.9-2) Adenovirus (PCR) Not Detected (NotDetected) B. pertussis DNA (PCR) Not Detected (NotDetected) B.parapertussis DNA PCR Not Detected (NotDetected) C. pneumoniae DNA (PCR) Not Detected (NotDetected) Coronavirus OC43 (PCR) Not Detected (NotDetected) Coronavirus HKU1 (PCR) Not Detected (NotDetected) Coronavirus 229E (PCR) Not Detected (NotDetected) SARS-CoV-2 (PCR) Not Detected (NotDetected) Coronavirus NL63 (PCR) Not Detected (NotDetected) Human Metapneumovir PCR Not Detected (NotDetected) Influenza Type A (PCR) Not Detected (NotDetected) Influenza Type B (PCR) Not Detected (NotDetected) M. pneumoniae (PCR) Not Detected (NotDetected) Parainfluenza 1 (PCR) Not Detected (NotDetected) Parainfluenza 2 (PCR) Not Detected (NotDetected) Parainfluenza 3 (PCR) Not Detected (NotDetected) Parainfluenza 4 (PCR) Not Detected (NotDetected) RSV (PCR) Not Detected (NotDetected) Entero/Rhino (PCR) Not Detected (NotDetected) Administered Medications Discontinued Medications Furosemide (Furosemide 40 Mg/4 Ml Vial) 40 mg IV ONE ONE Stop: 03/03/25 19:16 Last Admin: 03/03/25 19:26 Dose: 40 mg Documented By: isael Ioversol (Optiray 320 125ml) 119 ml IV ONCE ONE Stop: 03/03/25 19:00 Last Admin: 03/03/25 18:59 Dose: 119 ml Documented By: GEORGIANA Nitroglycerin (Nitroglycerin 2% Ointment 30gm Tube) 1 inch EXT NOW STA Stop: 03/03/25 19:16 Last Admin: 03/03/25 19:26 Dose: 1 inch Documented By: isael Imaging Data Radiologist's Impression: Chest X-Ray 03/03/25 17:36 Clinical History: Dyspnea Technique: A frontal view of the chest was obtained Findings: There is suspected pulmonary edema. There is more focal right lung base opacity. The heart is enlarged. No definite pneumothorax is seen. There is a possible small left small effusion No fracture is noted. No foreign body is seen Impression: 1. Cardiomegaly and pulmonary edema 2. Possible right lower lobe pneumonia 3. Small left pleural effusion ACT 112: Positive. There are findings on this exam that require communication between the performing entity and the patient following Patient Test Result Information Act ([place] ACT 112) guidelines. Electronically signed by Sesar Loza 03-03-2025 6:38 PM Chest CTA 03/03/25 18:41 CT angiogram of the chest with contrast Technique: Postcontrast axial images of the chest. Coronal and sagittal reformatted images made available for review Comparison made to prior exam dated 05/28/2023 Findings: No pulmonary embolus. Large bilateral pleural effusions Cardiomegaly. Exam limited secondary patient respiratory motion. Findings consistent with pulmonary edema. Limited valuation upper abdomen demonstrates no gross abnormality. Bone windows demonstrate no focal abnormality. Impression CHF with large bilateral pleural effusions No pulmonary embolus Electronically signed by Pedro Biswas 03-03-2025 8:27 PM Discharge Plan Visit Data Chief Complaint: Referred by Doctor Stated Complaint: FLUID BUILD UP/DOC REFERRAL ED Provider: Misael Elliott Discharge Problem: Acute respiratory failure with hypoxia and hypercapnia, Acute exacerbation of CHF (congestive heart failure), Pleural effusion, JOLENE (acute kidney injury) Patient Disposition: Admitted As Inpatient Condition: Serious Discharge Instructions Interventions: ED Discharge Assessment Last Done: 03/03/25 23:40
[2025-03-03] MEDS: OPTIRAY 320 125ml IV ONE (18:59)
[2025-03-03 19:19] LABS: Chlamydia pneumoniae PCR Not Detected (NotDetected); Coronavirus 229E PCR Not Detected (NotDetected); Coronavirus CoV-2 (COVID19)PCR Not Detected (NotDetected); Coronavirus HKU1 PCR Not Detected (NotDetected); Coronavirus NL63 PCR Not Detected (NotDetected); Coronavirus OC43PCR Not Detected (NotDetected); Human Metapneumovirus PCR Not Detected (NotDetected); Parainfluenza Virus 1 PCR Not Detected (NotDetected); Parainfluenza Virus 2 PCR Not Detected (NotDetected); Parainfluenza Virus 3 PCR Not Detected (NotDetected); Parainfluenza Virus 4 PCR Not Detected (NotDetected); Respiratory Syncytial VirusPCR Not Detected (NotDetected); Rhinovirus/Enterovirus PCR Not Detected (NotDetected)
[2025-03-03] MEDS: FUROSEMIDE 40 MG/4 ML VIAL IV ONE (19:26)
[2025-03-03] MEDS: NITROGLYCERIN 2% OINTMENT 30GM TUBE EXT STA (19:26)
--- NOTE | 2025-03-03 20:28 | CT Scan Report ---
CT angiogram of the chest with contrast Technique: Postcontrast axial images of the chest. Coronal and sagittal reformatted images made available for review Comparison made to prior exam dated 05/28/2023 Findings: No pulmonary embolus. Large bilateral pleural effusions Cardiomegaly. Exam limited secondary patient respiratory motion. Findings consistent with pulmonary edema. Limited valuation upper abdomen demonstrates no gross abnormality. Bone windows demonstrate no focal abnormality. Impression CHF with large bilateral pleural effusions No pulmonary embolus Electronically signed by Pedro Biswas 03-03-2025 8:27 PM
--- NOTE | 2025-03-03 22:12 | History & Physical Report ---
Date of Service March 03, 2025 Assessment & Plan (1) Acute respiratory failure with hypoxia and hypercapnia: (2) Acute exacerbation of CHF (congestive heart failure): (3) Pleural effusion: Plan The patient is a 64-year-old female with a past medical history including acute CVA due to left MCA embolism, ischemic CVA, CKD stage III, carotid artery occlusion, atrial fibrillation, NSTEMI, sepsis, CAD, PAF, MRSA pneumonia, diabetes mellitus, STEMI, DKA, circulatory shock, metabolic encephalopathy, dyslipidemia, and acute osteo of toe. She had been admitted to [facility] from 02/04-02/13 for STEMI and ischemic stroke. She was discharged to [facility] until 02/15, when she returned home. She has been visited by home health nursing regularly, and they noted today that the patient was having decreased oxygenation with pulse ox in the upper 80s, and was more short of breath. The home health nurse referred the patient to the emergency department for assessment. In the emergency department she had the following abnormal laboratories: Creatinine 1.24, BNP 2170, albumin 3.1, troponin 49.7. BioFire testing with negative. Chest x-ray showed cardiomegaly with pulmonary edema. CT angiography chest showed CHF, and large bilateral pleural effusions. From the ED patient received furosemide 40 mg IV, and a Nitropaste 1 inch. She was then referred for evaluation for admission to the [facility] hospitalist service. #Acute respiratory failure with hypoxia and hypercapnia/acute CHF exacerbation/bilateral pleural effusions/PAF- The patient will be admitted to telemetry for serial cardiac enzymes, serial EKG's, cardiac rhythm monitoring. Most recent echocardiogram on 02/05/2025 with ejection fraction 40-45%, mild concentric LVH, akinesis of posterior lateral wall, moderate MR. Initial troponin 49.7 with follow-up pending. Of note during last hospitaliz ation troponin peaked at 7542 BNP 2170 on admission labs Given furosemide 40 mg IV in ED and Nitropaste 1 inch. Continue furosemide is 40 mg IV twice daily Nitropaste 1 inch to anterior chest wall 4 times daily. Continue Jardiance, amiodarone, apixaban, and aspirin BioFire testing negative Diabetes mellitus- Reduce glargine from 30 to 20 units subcu twice daily due to decreased oral intake Continue Jardiance Place on Accu-Cheks with NovoLog SSI Hyperlipidemia- Continue atorvastatin Recent acute CVA due to left MCA embolism- Admitted to [facility] from 02/04-02/09/2025 Was admitted to [facility], it was discharged there on 02/15 to home with home health nursing. Dissipate patient to have need for continued home health nursing upon discharge. Acute kidney injury- Creatinine 1.24, with baseline 0.86 Follow serial laboratories History of Present Illness Primary Care Provider: Jeferson Oneil PA-C The patient is a 64-year-old female with a past medical history including acute CVA due to left MCA embolism, ischemic CVA, CKD stage III, carotid artery occlusion, atrial fibrillation, NSTEMI, sepsis, CAD, PAF, MRSA pneumonia, diabetes mellitus, STEMI, DKA, circulatory shock, metabolic encephalopathy, dyslipidemia, and acute osteo of toe. She had been admitted to [facility] from 02/04-02/13 for STEMI and ischemic stroke. She was discharged to [facility]hab until 02/15, when she returned home. She has been visited by home health nursing regularly, and they noted today that the patient was having decreased oxygenation with pulse ox in the upper 80s, and was more short of breath. The home health nurse referred the patient to the emergency department for assessment. In the emergency department she had the following abnormal laboratories: Creatinine 1.24, BNP 2170, albumin 3.1, troponin 49.7. BioFire testing with negative. Chest x-ray showed cardiomegaly with pulmonary edema. CT angiography chest showed CHF, and large bilateral pleural effusions. From the ED patient received furosemide 40 mg IV, and a Nitropaste 1 inch. She was then referred for evaluation for admission to the [facility] hospitalist service. Allergies Allergy/AdvReac Type Severity Reaction Status Date / Time amoxicillin [From Augmentin] Allergy Intermediate Rash Verified 02/04/25 16:28 clavulanic acid Allergy Intermediate Rash Verified 02/04/25 16:28 [From Augmentin] Home Medications Medication Instructions Recorded Confirmed Type ergocalciferol (vitamin D2) 1,250 50,000 unit PO Q14D 12/14/23 03/03/25 History mcg (50,000 unit) capsule insulin glargine 100 unit/mL (3 30 unit subcut BID 12/14/23 03/03/25 History mL) subcutaneous pen (Lantus Solostar U-100 Insulin) metoprolol succinate 50 mg 50 mg PO DAILY 12/14/23 03/03/25 History tablet,extended release 24 hr risedronate 150 mg tablet 150 mg PO MONTHLY 12/14/23 03/03/25 History tramadol 50 mg tablet 50 mg PO Q6H PRN Pain 12/14/23 03/03/25 History aspirin 81 mg tablet,delayed 81 mg PO DAILY #30 tabs 01/14/24 03/03/25 Rx release (Adult Aspirin Regimen) empagliflozin 25 mg tablet 25 mg PO QAM 05/23/24 03/03/25 History (Jardiance) atorvastatin 20 mg tablet 20 mg PO QPM 02/04/25 03/03/25 History furosemide 20 mg tablet 20 mg PO DAILY 02/04/25 03/03/25 History insulin aspart U-100 100 unit/mL 0 sliding scale dose subcut TIDM 02/04/25 03/03/25 History (3 mL) subcutaneous pen (Novolog FlexPen U-100 Insulin aspart) vit A 7,160 unit-vit C 113 mg-vit 1 tab PO DAILY 02/04/25 03/03/25 History E 100 [id number] tablet apixaban 5 mg tablet (Eliquis) 5 mg PO BID #60 tabs 02/09/25 03/03/25 Rx amiodarone 200 mg tablet 200 mg PO BID 03/03/25 03/03/25 History gabapentin 300 mg capsule 300 mg PO BID 03/03/25 03/03/25 History Past Med/Surg History Problem List (Updated 03/04/25 @ 02:34 by Misael Elliott DO) JOLENE (acute kidney injury) (Acute) Pleural effusion (Acute) Acute exacerbation of CHF (congestive heart failure) (Acute) Acute respiratory failure with hypoxia and hypercapnia (Acute) Acute cerebrovascular accident (CVA) due to embolism of left middle cerebral artery Ischemic cerebrovascular accident (CVA) CKD (chronic kidney disease) stage 3, GFR 30-59 ml/min Acute renal failure Hyponatremia Carotid artery occlusion Atrial fibrillation Acute non-ST elevation myocardial infarction (NSTEMI) (Acute) Acute hyperglycemia (Acute) Acute hyponatremia (Acute) Leukocytosis (Acute) Sepsis (Acute) Stroke (Acute) Wound of right foot Coronary artery disease Benign essential hypertension MRSA pneumonia PAF (paroxysmal atrial fibrillation) Osteomyelitis of right foot Uncontrolled type 2 diabetes mellitus with hyperglycemia STEMI (ST elevation myocardial infarction) DKA (diabetic ketoacidosis) (Acute) Shock circulatory Atherogenic dyslipidemia Non-ST elevation [place] (NSTEMI) Metabolic encephalopathy Influenza A Acute osteomyelitis of toe (Acute) Medical History Acute kidney injury Anemia PAD (peripheral artery disease) Sepsis Osteoporosis Hypertension Neuropathy T2DM (type 2 diabetes mellitus) Social History Smoking Status: Never smoker Second Hand Exposure: No; Do You Dip or Chew Tobacco: No; Hx Alcohol Use: No Hx Substance Use: No Preferred Language: Urdu Communication Ability: Effective Communication Ability Comment: aphasic Leasing Agent Required: No Beliefs That Will Affect Care: None Current Living Situation: Spouse Current Living Situation Comment: with spouse Feels Safe at Home: Yes Assistive Devices: Glasses and Oxygen - Continuous Review of Systems Review of Systems: The patient denies chest pain, palpitations, lower extremity swelling, sore throat, fevers, chills, sweats, nausea, vomiting, diarrhea , constipation, abdominal pain, pelvic pain, blood in urine or stool, dysuria, urinary frequency or urgency, memory loss, loss of consciousness, rash, abnormal bruising or bleeding, focal weakness, numbness or tingling in arms or legs, generalized arthralgias or myalgias, back or neck pain, or night sweats. The review of systems is otherwise negative other than for that already noted above, and at least 10 systems have been reviewed. Physical Exam Physical Exam: The patient is awake, alert and oriented 3, well developed and well nourished, normocephalic and atraumatic, lying in bed and in no acute distress. HEENT--PERRL, EOMI, mucous membranes and oropharynx normal Neck--supple. No JVD. No bruits. Thyroid normal, trachea midline, no adenopathy. Heart--normal S1 and S2. No murmurs, rubs or gallops. Lungs--crackles at the bases bilaterally., no respiratory distress, no accessory muscle use. Abdomen--normal bowel sounds and soft. Nontender. Nondistended. Extremities--1+ bilateral pretibial pitting edema. Dermatologic--normal skin turgor, normal color, no abnormal lymph nodes, no rash. Neurologic--cranial nerves II through XII grossly intact. Rheumatologic--normal range of motion. Psychiatric--normal affect. Results & Data Results & Data Vital Signs (Past 12 Hours) Vital Signs Temp Pulse Pulse Resp BP BP Pulse Ox 03/03/25 21:12 84 24 145/92 H 97 03/03/25 21:00 81 24 148/91 H 95 03/03/25 19:25 83 30 H 150/94 H 95 03/03/25 18:33 87 21 148/96 H 100 03/03/25 18:33 85 24 148/96 H 94 03/03/25 18:24 84 03/03/25 17:29 36.3 C L 88 16 135/85 83 L O2 Del Method O2 Flow Rate 03/03/25 21:12 Nasal Cannula 2 03/03/25 21:00 03/03/25 19:25 03/03/25 18:33 03/03/25 18:33 Nasal Cannula 2 03/03/25 18:24 03/03/25 17:29 Room Air Laboratory Results Laboratory Results WBC 5.93 K/ul (4.8-10.8) 03/03/25 17:50 RBC 3.89 M/uL (4.20-5.40) L 03/03/25 17:50 Hgb 10.5 g/dL (12.0-16.0) L 03/03/25 17:50 Hct 34.6 % (37.0-47.0) L 03/03/25 17:50 MCV 88.9 fL (80.0-100.0) 03/03/25 17:50 MCH 27.0 pg (25.0-34.0) 03/03/25 17:50 MCHC 30.3 g/dL (32.0-36.0) L 03/03/25 17:50 RDW Std Deviation 47.8 fL (36.4-46.3) H 03/03/25 17:50 RDW Coeff of Nichol 14.8 % (11.5-14.5) H 03/03/25 17:50 Plt Count 307 K/uL (130-400) 03/03/25 17:50 MPV 11.1 fL (9.4-12.4) 03/03/25 17:50 Immature Gran % (Auto) 0.3 % 03/03/25 17:50 Neut % (Auto) 63.0 % 03/03/25 17:50 Lymph % (Auto) 20.9 % 03/03/25 17:50 Bulloch % (Auto) 11.6 % 03/03/25 17:50 Eos % (Auto) 3.2 % 03/03/25 17:50 Baso % (Auto) 1.0 % 03/03/25 17:50 Neut # (Auto) 3.73 K/uL (1.40-6.50) 03/03/25 17:50 Lymph # (Auto) 1.24 K/uL (1.20-3.40) 03/03/25 17:50 Bulloch # (Auto) 0.69 K/uL (0.11-0.59) H 03/03/25 17:50 Eos # (Auto) 0.19 K/uL (0.00-0.50) 03/03/25 17:50 Baso # (Auto) 0.06 K/uL (0.00-0.20) 03/03/25 17:50 Immature Gran # (Auto) 0.02 K/uL (0.01-0.20) 03/03/25 17:50 PT 13.0 Seconds (9.0-12.0) H 03/03/25 17:50 INR 1.2 (0.9-1.1) H 03/03/25 17:50 APTT 31 Seconds (21-31) 03/03/25 17:50 PTT Ratio 1.1 03/03/25 17:50 VBG pH 7.32 (7.36-7.41) L 03/03/25 17:50 VBG pCO2 54 mmHg (38-50) H 03/03/25 17:50 VBG pO2 20 mmHg 03/03/25 17:50 VBG HCO3 28 mmol/L 03/03/25 17:50 VBG O2 Saturation < 60.0 % 03/03/25 17:50 VBG Base Excess 0.7 mEq/L 03/03/25 17:50 Sodium 141 mmol/L (136-145) 03/03/25 17:50 Potassium 4.6 mmol/L (3.5-5.1) 03/03/25 17:50 Chloride 105 mmol/L (98-107) 03/03/25 17:50 Carbon Dioxide 28 mmol/L (21-32) 03/03/25 17:50 Anion Gap 8 (3-11) 03/03/25 17:50 BUN 20 mg/dl (6-23) 03/03/25 17:50 Creatinine 1.24 mg/dl (0.6-1.2) H 03/03/25 17:50 Est Cr Clr Drug Dosing 49.6 ml/min 03/03/25 17:50 eGFR 48.90 03/03/25 17:50 BUN/Creatinine Ratio 16.1 (10-20) 03/03/25 17:50 Glucose 123 mg/dl (70-99(Fasting)) H 03/03/25 17:50 POC Glucose 167 mg/dl (70-99) H 03/03/25 23:31 Calcium 8.5 mg/dl (8.6-10.3) L 03/03/25 17:50 Magnesium 2.2 mg/dl (1.7-2.4) 03/03/25 17:50 Total Bilirubin 0.5 mg/dl (0.2-1.0) 03/03/25 17:50 AST 30 U/L (13-39) 03/03/25 17:50 ALT 51 U/L (7-52) 03/03/25 17:50 Alkaline Phosphatase 119 U/L (34-104) H 03/03/25 17:50 Troponin I High Sens 50.1 pg/ml (0-14) H* 03/03/25 19:35 B-Natriuretic Peptide 2170 pg/ml (0-100) H 03/03/25 17:50 Total Protein 6.3 gm/dl (6.0-8.3) 03/03/25 17:50 Albumin 3.1 gm/dl (3.4-5.0) L 03/03/25 17:50 Globulin 3.2 gm/dl (2.5-4.0) 03/03/25 17:50 Albumin/Globulin Ratio 1.0 (0.9-2) 03/03/25 17:50 Adenovirus (PCR) Not Detected (NotDetected) 03/03/25 18:20 B. pertussis DNA (PCR) Not Detected (NotDetected) 03/03/25 18:20 B.parapertussis DNA PCR Not Detected (NotDetected) 03/03/25 18:20 C. pneumoniae DNA (PCR) Not Detected (NotDetected) 03/03/25 18:20 Coronavirus OC43 (PCR) Not Detected (NotDetected) 03/03/25 18:20 Coronavirus HKU1 (PCR) Not Detected (NotDetected) 03/03/25 18:20 Coronavirus 229E (PCR) Not Detected (NotDetected) 03/03/25 18:20 SARS-CoV-2 (PCR) Not Detected (NotDetected) 03/03/25 18:20 Coronavirus NL63 (PCR) Not Detected (NotDetected) 03/03/25 18:20 Human Metapneumovir PCR Not Detected (NotDetected) 03/03/25 18:20 Influenza Type A (PCR) Not Detected (NotDetected) 03/03/25 18:20 Influenza Type B (PCR) Not Detected (NotDetected) 03/03/25 18:20 M. pneumoniae (PCR) Not Detected (NotDetected) 03/03/25 18:20 Parainfluenza 1 (PCR) Not Detected (NotDetected) 03/03/25 18:20 Parainfluenza 2 (PCR) Not Detected (NotDetected) 03/03/25 18:20 Parainfluenza 3 (PCR) Not Detected (NotDetected) 03/03/25 18:20 Parainfluenza 4 (PCR) Not Detected (NotDetected) 03/03/25 18:20 RSV (PCR) Not Detected (NotDetected) 03/03/25 18:20 Entero/Rhino (PCR) Not Detected (NotDetected) 03/03/25 18:20 Impressions Chest X-Ray 03/03/25 17:36 Clinical History: Dyspnea Technique: A frontal view of the chest was obtained Findings: There is suspected pulmonary edema. There is more focal right lung base opacity. The heart is enlarged. No definite pneumothorax is seen. There is a possible small left small effusion No fracture is noted. No foreign body is seen Impression: 1. Cardiomegaly and pulmonary edema 2. Possible right lower lobe pneumonia 3. Small left pleural effusion ACT 112: Positive. There are findings on this exam that require communication between the performing entity and the patient following Patient Test Result Information Act ([place] ACT 112) guidelines. Electronically signed by Sesar Loza 03-03-2025 6:38 PM Chest CTA 03/03/25 18:41 CT angiogram of the chest with contrast Technique: Postcontrast axial images of the chest. Coronal and sagittal reformatted images made available for review Comparison made to prior exam dated 05/28/2023 Findings: No pulmonary embolus. Large bilateral pleural effusions Cardiomegaly. Exam limited secondary patient respiratory motion. Findings consistent with pulmonary edema. Limited valuation upper abdomen demonstrates no gross abnormality. Bone windows demonstrate no focal abnormality. Impression CHF with large bilateral pleural effusions No pulmonary embolus Electronically signed by Pedro Biswas 03-03-2025 8:27 PM Code Status & VTE Plan Code Status Full code VTE Prophylaxis Plan VTE Prophylaxis will be ordered: Yes PG Care Time/CCT Total # of Minutes Spent Total Time Spent with Patient: Total time spent is greater than 50% in coordination of care (as documented) at patient's floor/unit and/or counseling patient: Coding Level of Care Code 44596 INT INP/OBS CARE 3MIN Diagnoses Acute respiratory failure with hypoxia and hypercapnia J96.01; J96.02 Acute exacerbation of CHF (congestive heart failure) I50.9 Pleural effusion J90
[2025-03-03] MEDS ORDERED: GLUCOSE 10 TAB/TUBE PO PRN (23:30)
[2025-03-03] MEDS ORDERED: ACETAMINOPHEN 325 MG TAB PO PRN (23:30)
[2025-03-03] MEDS ORDERED: GLUCAGON FOR INJ 1 MG VIAL SQ PRN (23:30)
[2025-03-03] MEDS ORDERED: GLUCOSE 40% GEL 15 GM TUBE PO PRN (23:30)
[2025-03-03] MEDS ORDERED: ONDANSETRON INJ 2 MG/ML 2 ML VIAL IV PRN (23:30)
[2025-03-04] MEDS: NITROGLYCERIN 2% OINTMENT 30GM TUBE EXT SCH (05:24)
[2025-03-04 06:40] LABS: Appearance Urine Clear (Clear); Glucose Urine UA 3+ (Negative)
[2025-03-04 06:45] LABS: Hematocrit (blood only) 34.9 % (37.0-47.0); Hemoglobin 10.6 g/dL (12.0-16.0); Immature Granulocytes # (auto) 0.01 K/uL (0.01-0.20); Immature Granulocytes % (auto) 0.2 %; Mean Corpuscular Hemoglobin 27.0 pg (25.0-34.0); Mean Corpuscular Volume 88.8 fL (80.0-100.0); Platelet Count 312 K/uL (130-400); RDW Standard Deviation 47.7 fL (36.4-46.3); Red Blood Count 3.93 M/uL (4.20-5.40); White Blood Count 4.82 K/ul (4.8-10.8)
[2025-03-04 07:16] LABS: Partial Thromboplastin Time 31 Seconds (21-31)
[2025-03-04 07:33] LABS: Alanine Aminotransferase 40.0 U/L (7-52); Albumin Globulin Ratio 1.2 (0.9-2); Albumin Level 3.2 gm/dl (3.4-5.0); Alkaline Phosphatase 107.0 U/L (34-104); Anion Gap 8.0 (3-11); Bilirubin,Total 0.6 mg/dl (0.2-1.0); Blood Urea Nitrogen 19.0 mg/dl (6-23); Calcium 8.2 mg/dl (8.6-10.3); Carbon Dioxide 32.0 mmol/L (21-32); Chloride 103.0 mmol/L (98-107); Creatinine Clr Calc Pharmacy 48.8 ml/min; Globulin 2.6 gm/dl (2.5-4.0); Glucose 108.0 mg/dl (70-99(Fasting)); Magnesium 2.1 mg/dl (1.7-2.4); Potassium 4.3 mmol/L (3.5-5.1); Sodium 143.0 mmol/L (136-145); Total Protein 5.8 gm/dl (6.0-8.3)
[2025-03-04 07:48] LABS: Hemoglobin A1C 10.3 % (4.5-5.6)
[2025-03-04] MEDS: INSULIN ASPART PER UNIT CHARGE SC SCH (08:32)
[2025-03-04] MEDS: LANTUS PER UNIT CHARGE SC SCH (08:32)
[2025-03-04] MEDS: ASPIRIN 81 MG ECTAB PO SCH (08:33)
[2025-03-04] MEDS: METOPROLOL SUCC 50MG EXT REL TAB PO SCH (08:33)
[2025-03-04] MEDS: FUROSEMIDE 40 MG/4 ML VIAL IV SCH (08:33)
[2025-03-04] MEDS: AMIODARONE 200 MG TAB PO SCH (08:33)
[2025-03-04] MEDS: GABAPENTIN 300 MG CAP PO SCH (08:33)
[2025-03-04] MEDS: APIXABAN 5 MG TABLET PO SCH (08:33)
[2025-03-04] MEDS: EMPAGLIFLOZIN 25 MG TAB PO SCH (08:33)
[2025-03-04] MEDS ORDERED: LANTUS PER UNIT CHARGE SC SCH (09:00)
[2025-03-04] MEDS ORDERED: NON-FORMULARY MEDICATION (Vit A-Vit C-Vit E-Zinc-Copper 7,160-113-100 unit-mg-unit Tablet) PO SCH (09:00)
[2025-03-04] MEDS: ATORVASTATIN 20 MG TAB PO SCH (21:11)
--- NOTE | 2025-03-04 23:38 | Hospitalist Progress Note ---
Date of Service March 04, 2025 Assessment & Plan (1) Acute respiratory failure with hypoxia and hypercapnia: (2) Acute exacerbation of CHF (congestive heart failure): (3) Pleural effusion: Plan The patient is a 64-year-old female with a past medical history including acute CVA due to left MCA embolism, ischemic CVA, CKD stage III, carotid artery occlusion, atrial fibrillation, NSTEMI, sepsis, CAD, PAF, MRSA pneumonia, diabetes mellitus, STEMI, DKA, circulatory shock, metabolic encephalopathy, dyslipidemia, and acute osteo of toe. She had been admitted to [facility] from 02/04-02/13 for STEMI and ischemic stroke. She was discharged to [facility] until 02/15, when she returned home. She has been visited by home health nursing regularly, and they noted today that the patient was having decreased oxygenation with pulse ox in the upper 80s, and was more short of breath. The home health nurse referred the patient to the emergency department for assessment. In the emergency department she had the following abnormal laboratories: Creatinine 1.24, BNP 2170, albumin 3.1, troponin 49.7. BioFire testing with negative. Chest x-ray showed cardiomegaly with pulmonary edema. CT angiography chest showed CHF, and large bilateral pleural effusions. From the ED patient received furosemide 40 mg IV, and a Nitropaste 1 inch. She was then referred for evaluation for admission to the [facility] hospitalist service. #Acute respiratory failure with hypoxia and hypercapnia/acute CHF exacerbation/bilateral pleural effusions/PAF- The patient will be admitted to telemetry for serial cardiac enzymes, serial EKG's, cardiac rhythm monitoring. Most recent echocardiogram on 02/05/2025 with ejection fraction 40-45%, mild concentric LVH, akinesis of posterior lateral wall, moderate MR. Initial troponin 49.7 with follow-up at on 50.. Of note during last hospital ization troponin peaked at 7542 BNP 2170 on admission labs Patient responding to lasix $) mg IV BID. will continue to diurese Continue Jardiance, amiodarone, apixaban, and aspirin BioFire testing negative Diabetes mellitus- Reduce glargine from 30 to 20 units subcu twice daily due to decreased oral intake Continue Jardiance Place on Accu-Cheks with NovoLog SSI Hyperlipidemia- Continue atorvastatin Recent acute CVA due to left MCA embolism- Ad[facility] from 02[facility]04-[facility]09[facility] [facility], it was discharged there on 02/15 to home with home health nursing. Dissipate patient to have need for continued home health nursing upon discharge. Acute kidney injury- Creatinine 1.22, with baseline 0.86 Follow serial laboratories Admission and Anticipated Discharge Date Admission Date: March 03, 2025 Subjective 64 yo female reports no new symptoms. Her breathing has improved. Physical Exam Constitutional: WD/WN, vitals as above Neck: trachea midline, no thyromegaly Respiratory: bibasilar rales Cardiovascular: RRR, no murmur, no edema Gastrointestinal (Abdomen): normal bowel sounds, soft, nontender, no hepatosplenomegaly Neurologic: PERRL, EOMI, accommodation nl, no face palsy, no dysarthria Results & Data Results & Data Vital Signs (Past 12 Hours) Vital Signs Temp Pulse Pulse Resp BP BP Pulse Ox 03/04/25 22:55 65 03/04/25 19:55 03/04/25 19:50 36.5 C 73 104/67 94 03/04/25 17:07 74 125/81 98 03/04/25 15:26 36.8 C 75 20 123/76 100 03/04/25 15:00 03/04/25 14:36 75 03/04/25 12:32 77 104/68 O2 Del Method O2 Flow Rate 03/04/25 22:55 03/04/25 19:55 Nasal Cannula 0.5 03/04/25 19:50 Room Air 03/04/25 17:07 Nasal Cannula 1 03/04/25 15:26 Nasal Cannula 1.5 03/04/25 15:00 Nasal Cannula 1.5 03/04/25 14:36 03/04/25 12:32 PG Care Time/CCT Total # of Minutes Spent Total Time Spent with Patient: Total time spent is greater than 50% in coordination of care (as documented) at patient's floor/unit and/or counseling patient: Coding Level of Care Code 92441 SUB INP/OBS CARE 3/50MIN Diagnoses Acute respiratory failure with hypoxia and hypercapnia J96.01; J96.02 Acute exacerbation of CHF (congestive heart failure) I50.9 Pleural effusion J90
[2025-03-05 06:32] LABS: Hematocrit (blood only) 39.0 % (37.0-47.0); Hemoglobin 11.7 g/dL (12.0-16.0); Immature Granulocytes # (auto) 0.01 K/uL (0.01-0.20); Immature Granulocytes % (auto) 0.2 %; Mean Corpuscular Hemoglobin 26.4 pg (25.0-34.0); Mean Corpuscular Volume 88.0 fL (80.0-100.0); Platelet Count 342 K/uL (130-400); RDW Standard Deviation 47.0 fL (36.4-46.3); Red Blood Count 4.43 M/uL (4.20-5.40); White Blood Count 5.44 K/ul (4.8-10.8)
[2025-03-05 07:09] LABS: Partial Thromboplastin Time 31 Seconds (21-31)
[2025-03-05 07:14] LABS: Alanine Aminotransferase 32.0 U/L (7-52); Albumin Globulin Ratio 1.2 (0.9-2); Albumin Level 3.1 gm/dl (3.4-5.0); Alkaline Phosphatase 101.0 U/L (34-104); Anion Gap 6.0 (3-11); Bilirubin,Total 0.5 mg/dl (0.2-1.0); Blood Urea Nitrogen 18.0 mg/dl (6-23); Calcium 8.3 mg/dl (8.6-10.3); Carbon Dioxide 34.0 mmol/L (21-32); Chloride 101.0 mmol/L (98-107); Creatinine Clr Calc Pharmacy 47.5 ml/min; Globulin 2.6 gm/dl (2.5-4.0); Glucose 59.0 mg/dl (70-99(Fasting)); Magnesium 2.0 mg/dl (1.7-2.4); Potassium 4.0 mmol/L (3.5-5.1); Sodium 141.0 mmol/L (136-145); Total Protein 5.7 gm/dl (6.0-8.3)
[2025-03-05] MEDS: CARBOHYDRATES FOR HYPOGLYCEMIA PO PRN (14:48)
[2025-03-05] MEDS: DEXTROSE 50% 50 ML SYRINGE IV PRN (15:27)
--- NOTE | 2025-03-05 18:42 | XRay Report ---
EXAM: CHEST RADIOGRAPH PA AND LATERAL VIEWS TECHNIQUE: PA and lateral view radiographs of the chest were obtained. INDICATION: CHEST PAIN COMPARISON: Thoracic CT and chest radiograph 2 days previous FINDINGS: The cardiac silhouette is stably enlarged. Interstitial pulmonary edema appears to have mildly improved. Also pleural fluids, left greater than right, appear to have mildly reduced in quantity. Bibasilar densities are probably atelectasis though difficult to exclude mild pneumonia. No discernible pneumothorax. No displaced acute osseous process identified. IMPRESSION: Apparent mild interval improvement of the pulmonary edema and pleural fluids. Electronically signed by Jaya Shields 03-05-2025 6:42 PM
[2025-03-05] MEDS: LANTUS PER UNIT CHARGE SC SCH (21:20)
--- NOTE | 2025-03-05 23:19 | Hospitalist Progress Note ---
Date of Service March 05, 2025 Assessment & Plan (1) Acute respiratory failure with hypoxia and hypercapnia: (2) Acute exacerbation of CHF (congestive heart failure): (3) Pleural effusion: Plan The patient is a 64-year-old female with a past medical history including acute CVA due to left MCA embolism, ischemic CVA, CKD stage III, carotid artery occlusion, atrial fibrillation, NSTEMI, sepsis, CAD, PAF, MRSA pneumonia, diabetes mellitus, STEMI, DKA, circulatory shock, metabolic encephalopathy, dyslipidemia, and acute osteo of toe. She had been admitted to [facility] from 02/04-02/13 for STEMI and ischemic stroke. She was discharged to [facility] until 02/15, when she returned home. She has been visited by home health nursing regularly, and they noted today that the patient was having decreased oxygenation with pulse ox in the upper 80s, and was more short of breath. The home health nurse referred the patient to the emergency department for assessment. In the emergency department she had the following abnormal laboratories: Creatinine 1.24, BNP 2170, albumin 3.1, troponin 49.7. BioFire testing with negative. Chest x-ray showed cardiomegaly with pulmonary edema. CT angiography chest showed CHF, and large bilateral pleural effusions. From the ED patient received furosemide 40 mg IV, and a Nitropaste 1 inch. She was then referred for evaluation for admission to the [facility] hospitalist service. #Acute respiratory failure with hypoxia and hypercapnia/acute CHF exacerbation/bilateral pleural effusions/PAF Acute on chronic HFmrEF STEMI occurring 02/04, which is within the past 4 weeks of ER presentation on 03/03 Patient responding to lasix 40 mg IV BID. will continue to diurese Continue Jardiance, amiodarone, apixaban, and aspirin BioFire testing negative Diabetes mellitus- Reduce glargine from 30 to 20 units subcu twice daily due to decreased oral intake Continue Jardiance Place on Accu-Cheks with NovoLog SSI Episodic hypoglycemia episode, required decreasing insulin to 10 units BID. gave D50 as blood sugars were below 40.. Hyperlipidemia- Continue atorvastatin Recent acute CVA due to left MCA embolism- Admitted to [facility] from 02/04-02/09/2025 Was admitted to [facility], it was discharged there on 02/15 to home with home health nursing. Dissipate patient to have need for continued home health nursing upon discharge. Acute kidney injury- Creatinine 1.2, with baseline 0.86 Follow serial laboratories Admission and Anticipated Discharge Date Admission Date: March 03, 2025 Subjective Patient reports breathing better. She did have an episode of hypoglycemia where she felt pretty weak. Physical Exam Constitutional: WD/WN, vitals as above Neck: trachea midline, no thyromegaly Cardiovascular: RRR, no murmur, no edema Gastrointestinal (Abdomen): normal bowel sounds, soft, nontender, no hepatosplenomegaly Neurologic: PERRL, EOMI, accommodation nl, no face palsy, no dysarthria Results & Data Results & Data Vital Signs (Past 12 Hours) Vital Signs Temp Pulse Pulse Resp BP BP Pulse Ox 03/05/25 22:47 36.8 C 68 16 121/72 90 03/05/25 20:00 03/05/25 19:36 36.3 C L 65 18 105/69 91 03/05/25 18:14 67 126/85 94 03/05/25 14:35 70 O2 Del Method 03/05/25 22:47 Room Air 03/05/25 20:00 Room Air 03/05/25 19:36 Room Air 03/05/25 18:14 Room Air 03/05/25 14:35 PG Care Time/CCT Total # of Minutes Spent Total Time Spent with Patient: Total time spent is greater than 50% in coordination of care (as documented) at patient's floor/unit and/or counseling patient: Coding Level of Care Code 39931 SUB INP/OBS CARE 3/50MIN Diagnoses Acute respiratory failure with hypoxia and hypercapnia J96.01; J96.02 Acute exacerbation of CHF (congestive heart failure) I50.9 Pleural effusion J90
[2025-03-06 06:17] LABS: Hematocrit (blood only) 35.6 % (37.0-47.0); Hemoglobin 11.1 g/dL (12.0-16.0); Immature Granulocytes # (auto) 0.02 K/uL (0.01-0.20); Immature Granulocytes % (auto) 0.3 %; Mean Corpuscular Hemoglobin 26.9 pg (25.0-34.0); Mean Corpuscular Volume 86.2 fL (80.0-100.0); Platelet Count 341 K/uL (130-400); RDW Standard Deviation 46.0 fL (36.4-46.3); Red Blood Count 4.13 M/uL (4.20-5.40); White Blood Count 6.73 K/ul (4.8-10.8)
[2025-03-06 06:38] LABS: Partial Thromboplastin Time 29 Seconds (21-31)
[2025-03-06 06:39] LABS: Alanine Aminotransferase 23.0 U/L (7-52); Albumin Globulin Ratio 1.2 (0.9-2); Albumin Level 2.9 gm/dl (3.4-5.0); Alkaline Phosphatase 86.0 U/L (34-104); Anion Gap 7.0 (3-11); Bilirubin,Total 0.5 mg/dl (0.2-1.0); Blood Urea Nitrogen 25.0 mg/dl (6-23); Calcium 8.1 mg/dl (8.6-10.3); Carbon Dioxide 36.0 mmol/L (21-32); Chloride 97.0 mmol/L (98-107); Creatinine Clr Calc Pharmacy 35.0 ml/min; Globulin 2.4 gm/dl (2.5-4.0); Glucose 112.0 mg/dl (70-99(Fasting)); Magnesium 1.9 mg/dl (1.7-2.4); Potassium 4.1 mmol/L (3.5-5.1); Sodium 140.0 mmol/L (136-145); Total Protein 5.3 gm/dl (6.0-8.3)
--- NOTE | 2025-03-06 11:35 | XRay Report ---
XR chest 2V PA/lateral CLINICAL HISTORY: Congestive heart failure. COMPARISON STUDY: Chest CT March 03, 2025 and chest radiograph March 05, 2025. FINDINGS: There is no pneumothorax. Moderate left and small right pleural effusions have improved sin ce earlier exam of March 03, 2025. Left basilar opacity persists although slightly improved. There is no radiographic evidence for pulmonary edema. Cardiomegaly is unchanged. IMPRESSION: 1. Moderate left and small right pleural effusions, similar to prior exam. These effusions have impro luca since study of March 03, 2025. 2. Cardiomegaly. No evidence for pulmonary edema. Resolution of pulmonary edema since study of [facility] 2024. 3. Persistent left basilar opacity which favors atelectasis. ACT 112: Negative or not required by law. Electronically signed by: Yuri Angela M.D. 03/06/2025 11:34 AM
[2025-03-06] MEDS: ALBUMIN 25% 25 GM/100 ML VIAL IV SCH (15:05)
--- NOTE | 2025-03-06 16:13 | Pulmonary Consultation ---
Date of Consultation March 06, 2025 Assessment & Plan (1) Pleural effusion: (2) Acute exacerbation of CHF (congestive heart failure): (3) PAF (paroxysmal atrial fibrillation): Plan 64-year-old female present to the hospital for hypoxia, was found to be in CHF exacerbation. 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, CKD stage III, A-fib, NSTEMI, coronary artery disease, diabetes Chest x-ray 03/06/2025 personally reviewed: PA/lateral view, good inspiratory effort, increased cardiac silhouette, minimal blunting of the right costophrenic angle, blunting of the left costophrenic angle, no clear lung infiltrate Improvement in the effusions bilaterally compared to chest x-ray 03/03/2025 -- Bilateral pleural effusion Etiology is systolic CHF Small with compressive atelectasis bilaterally on bedside US 03/06/2025 -- Ex-smoker [id number] smoking history Encouraged to continue abstinence from smoking Absolute eosinophil count 280 on 03/05/2025 -- Probable TEJAL Recommend outpatient polysomnography -- A-fib On Eliquis Plan: In/out: -10 L since coming to the hospital Patient is not any respiratory distress, has small bilateral pleural effusions Would recommend to continue with diuretics to keep the patient negative balance I do not think there is a need for any intervention like thoracentesis for the time being In future if there is any worsening in patient shortness of breath and/or worsening in the pleural effusion then it could be thought of keeping in mind that Eliquis needs to be on hold for at least 48 hours before thinking of thoracentesis Adjustment to diuretics on discharge CPAP/BiPAP nightly and as needed shortness of breath Case was discussed with RN at bedside as well as primary team I spent more than 55 minutes looking in the chart, images, discussing the plan of care with the patient, RN as well as primary team Please note the above document was generated using voice recognition software. It may contain grammatical, syntax or spelling errors.Any formal questions or concerns about the content, text or information contained within the body of this dictation should be directly addressed to the provider for clarification. History of Present Illness Attending Physician: Rico Veliz History of Present Illness 64-year-old female present to the hospital for hypoxia, was found to be in CHF exacerbation. 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 She has been using incentive spirometry Denied any chest pain, stated that shortness of breath has improved. 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 No history of lung cancer in the family Allergies Allergy/AdvReac Type Severity Reaction Status Date / Time amoxicillin [From Augmentin] Allergy Intermediate Rash Verified 02/04/25 16:28 clavulanic acid Allergy Intermediate Rash Verified 02/04/25 16:28 [From Augmentin] Home Medications Medication Instructions Recorded Confirmed Type ergocalciferol (vitamin D2) 1,250 50,000 unit PO Q14D 12/14/23 03/03/25 History mcg (50,000 unit) capsule insulin glargine 100 unit/mL (3 30 unit subcut BID 12/14/23 03/03/25 History mL) subcutaneous pen (Lantus Solostar U-100 Insulin) metoprolol succinate 50 mg 50 mg PO DAILY 12/14/23 03/03/25 History tablet,extended release 24 hr risedronate 150 mg tablet 150 mg PO MONTHLY 12/14/23 03/03/25 History tramadol 50 mg tablet 50 mg PO Q6H PRN Pain 12/14/23 03/03/25 History aspirin 81 mg tablet,delayed 81 mg PO DAILY #30 tabs 01/14/24 03/03/25 Rx release (Adult Aspirin Regimen) empagliflozin 25 mg tablet 25 mg PO QAM 05/23/24 03/03/25 History (Jardiance) atorvastatin 20 mg tablet 20 mg PO QPM 02/04/25 03/03/25 History furosemide 20 mg tablet 20 mg PO DAILY 02/04/25 03/03/25 History insulin aspart U-100 100 unit/mL 0 sliding scale dose subcut TIDM 02/04/25 03/03/25 History (3 mL) subcutaneous pen (Novolog FlexPen U-100 Insulin aspart) vit A 7,160 unit-vit C 113 mg-vit 1 tab PO DAILY 02/04/25 03/03/25 History E 100 [id number] tablet apixaban 5 mg tablet (Eliquis) 5 mg PO BID #60 tabs 02/09/25 03/03/25 Rx amiodarone 200 mg tablet 200 mg PO BID 03/03/25 03/03/25 History gabapentin 300 mg capsule 300 mg PO BID 03/03/25 03/03/25 History Patient History Medical History Acute kidney injury Anemia PAD (peripheral artery disease) Sepsis Osteoporosis Hypertension Neuropathy T2DM (type 2 diabetes mellitus) Social History Smoking Status: Never smoker Second Hand Exposure: No; Do You Dip or Chew Tobacco: No; Hx Alcohol Use: No Hx Substance Use: No Preferred Language: Bolivian Communication Ability: Effective Communication Ability Comment: aphasic Director Plans Required: No Beliefs That Will Affect Care: None Current Living Situation: Spouse Current Living Situation Comment: with spouse Other Information That Helps Us Care for You: No Feels Safe at Home: Yes Assistive Devices: Walker Review of Systems 2 Review of Systems: All systems reviewed & are unremarkable except as noted in HPI & below Physical Exam 2 Physical Exam: Constitutional: No acute distress HEENT: EOMI, PERRLA Respiratory system: Decreased air entry bilaterally, no wheeze, no rhonchi, positive crackles bilateral lower lobe CVS: S1-S2 positive, no murmurs or gallops, accentuated P2 Abdomen: Soft, nontender, nondistended, positive bowel sounds x4, obese Extremities: +2 pulses bilaterally radialis/ dorsalis pedis, no cyanosis, +2 pitting edema bilateral lower extremity Neuro: Awake alert oriented x3 Psych: Normal mood and affect G/U: No Roland Results & Data Results & Data Vital Signs (Past 12 Hours) Vital Signs Temp Pulse Resp BP BP Pulse Ox O2 Del Method 03/06/25 12:09 Room Air 03/06/25 11:19 36.4 C L 74 16 106/71 92 Room Air 03/06/25 07:41 36.8 C 70 16 100/66 91 Nasal Cannula 03/06/25 07:15 88 L Room Air 03/06/25 06:24 96/61 L O2 Flow Rate 03/06/25 12:09 03/06/25 11:19 03/06/25 07:41 2 03/06/25 07:15 03/06/25 06:24 Laboratory Results 03/06/25 05:54 03/06/25 05:54 PG Care Time/CCT Total # of Minutes Spent Total Time Spent with Patient: Total time spent is greater than 50% in coordination of care (as documented) at patient's floor/unit and/or counseling patient: Coding Level of Care Code 15686 INT INP/OBS CARE 2/55MIN Diagnoses Pleural effusion J90 Acute exacerbation of CHF (congestive heart failure) I50.9 PAF (paroxysmal atrial fibrillation) I48.0
--- NOTE | 2025-03-06 16:25 | Procedure Note ---
Procedure Note Date of Service March 06, 2025 Bedside Ultrasound: Lung: Right:-Minimal to small hypoechoic simple right-sided pleural effusion with atelectasis, B-lines posteriorly Left:-Small hypoechoic simple left-sided pleural effusion with atelectasis, B- lines posteriorly Please note the above document was generated using voice recognition software. It may contain grammatical, syntax or spelling errors.Any formal questions or concerns about the content, text or information contained within the body of this dictation should be directly addressed to the provider for clarification. [facility] [place] Procedure Codes (Charges) Pulmonary/Thoracic Procedure 1: Pulmonary and Thoracic: 74557 US, Chest, real time with imaging docume ntation Coding CPT Codes Pulmonary/Thoracic - Pulmonary and Thoracic: 76494 US, Chest, real time with imaging documentation ([id number]) Additional Codes Date of Service (PG.SURGERY)
--- NOTE | 2025-03-06 17:07 | XCELERA ---
[id number]
[2025-03-06] MEDS: FUROSEMIDE INJ 20 MG/2 ML VIAL IV ONE (18:05)
--- NOTE | 2025-03-06 23:07 | Hospitalist Progress Note ---
Date of Service March 06, 2025 Assessment & Plan (1) Acute respiratory failure with hypoxia and hypercapnia: (2) Acute exacerbation of CHF (congestive heart failure): (3) Pleural effusion: Plan The patient is a 64-year-old female with a past medical history including acute CVA due to left MCA embolism, ischemic CVA, CKD stage III, carotid artery occlusion, atrial fibrillation, NSTEMI, sepsis, CAD, PAF, MRSA pneumonia, diabetes mellitus, STEMI, DKA, circulatory shock, metabolic encephalopathy, dyslipidemia, and acute osteo of toe. She had been admitted to [facility] from 02/04-02/13 for STEMI and ischemic stroke. She was discharged to [facility] until 02/15, when she returned home. She has been visited by home health nursing regularly, and they noted today that the patient was having decreased oxygenation with pulse ox in the upper 80s, and was more short of breath. The home health nurse referred the patient to the emergency department for assessment. In the emergency department she had the following abnormal laboratories: Creatinine 1.24, BNP 2170, albumin 3.1, troponin 49.7. BioFire testing with negative. Chest x-ray showed cardiomegaly with pulmonary edema. CT angiography chest showed CHF, and large bilateral pleural effusions. From the ED patient received furosemide 40 mg IV, and a Nitropaste 1 inch. She was then referred for evaluation for admission to the [facility] hospitalist service. #Acute respiratory failure with hypoxia and hypercapnia/acute CHF exacerbation/bilateral pleural effusions/PAF Acute on chronic HFmrEF STEMI occurring 02/04, which is within the past 4 weeks of ER presentation on 03/03 Creatinine is rising. Now with Acute kidney injury. Ordered albumin as proteing levels are low in hopes to help volume expansion while also help with remove that pleural effusion on the left. I asked pulmonary to see patient for possible tap but, there was not enough fluid to drain. will discuss with cards if appoitnment tomorrow ir reasonable vs inpatient consult. Continue Jardiance, amiodarone, apixaban, and aspirin BioFire testing negative Diabetes mellitus- Reduce glargine from 30 to 20 units subcu twice daily due to decreased oral intake Continue Jardiance Place on Accu-Cheks with NovoLog SSI blood sugars are better controlled Hyperlipidemia- Continue atorvastatin Recent acute CVA due to left MCA embolism- [facility] Was admitted to [facility], it was discharged there on 02/15 to home with home health nursing. Dissipate patient to have need for continued home health nursing upon discharge. Acute kidney injury- Creatinine worsened, with baseline 0.86 willl cut back on diuretics, albumin and 20 mg of lasix given. Admission and Anticipated Discharge Date Admission Date: March 03, 2025 Subjective Patient reports feeling much better. Physical Exam Constitutional: WD/WN, vitals as above Neck: trachea midline, no thyromegaly Cardiovascular: RRR, no murmur, no edema Gastrointestinal (Abdomen): normal bowel sounds, soft, nontender, no hepatosplenomegaly Neurologic: PERRL, EOMI, accommodation nl, no face palsy, no dysarthria Results & Data Results & Data Vital Signs (Past 12 Hours) Vital Signs Temp Pulse Resp BP Pulse Ox O2 Del Method O2 Flow Rate 03/06/25 20:00 Nasal Cannula 1 03/06/25 19:44 36.7 C 71 18 111/70 92 Nasal Cannula 90 03/06/25 16:23 36.7 C 72 16 95/61 L 90 Room Air 03/06/25 12:09 Room Air 03/06/25 11:19 36.4 C L 74 16 106/71 92 Room Air PG Care Time/CCT Total # of Minutes Spent Total Time Spent with Patient: Total time spent is greater than 50% in coordination of care (as documented) at patient's floor/unit and/or counseling patient: Coding Level of Care Code 31868 SUB INP/OBS CARE 3/50MIN Diagnoses Acute respiratory failure with hypoxia and hypercapnia J96.01; J96.02 Acute exacerbation of CHF (congestive heart failure) I50.9 Pleural effusion J90
[2025-03-07 07:10] LABS: Hematocrit (blood only) 37.3 % (37.0-47.0); Hemoglobin 11.4 g/dL (12.0-16.0); Mean Corpuscular Hemoglobin 26.5 pg (25.0-34.0); Mean Corpuscular Volume 86.5 fL (80.0-100.0); Platelet Count 328 K/uL (130-400); RDW Standard Deviation 46.5 fL (36.4-46.3); Red Blood Count 4.31 M/uL (4.20-5.40); White Blood Count 5.94 K/ul (4.8-10.8)
[2025-03-07 07:33] LABS: Anion Gap 8.0 (3-11); Blood Urea Nitrogen 28.0 mg/dl (6-23); Calcium 8.5 mg/dl (8.6-10.3); Carbon Dioxide 36.0 mmol/L (21-32); Chloride 99.0 mmol/L (98-107); Creatinine Clr Calc Pharmacy 34.1 ml/min; Glucose 73.0 mg/dl (70-99(Fasting)); Potassium 3.9 mmol/L (3.5-5.1); Sodium 143.0 mmol/L (136-145)
--- NOTE | 2025-03-07 11:03 | XRay Report ---
XR chest 2V PA/lateral HISTORY: 64 years-old Female hypoxia COMPARISON: 03/06/2025 TECHNIQUE: PA and lateral views of the chest FINDINGS: Cardiomegaly is unchanged. Pulmonary vascular congestion. No pneumothorax. Small right and moderate l eft pleural effusions with persistent left basilar consolidation, unchanged. Bones appear grossly int act. IMPRESSION: 1. Cardiomegaly with pulmonary vascular congestion. 2. Unchanged small right and moderate left pleural effusions. 3. Stable left basilar consolidation. ACT 112: Negative or not required by law. The above report was generated using voice recognition software. It may contain grammatical, syntax o r spelling errors. Electronically signed by: Jeovany Galan M.D. 03/07/2025 11:02 AM
[2025-03-07 11:10] VITALS: BP 111/72; RESP 18; TEMP 97.9
--- NOTE | 2025-03-07 13:10 | Discharge Summary ---
Discharge Summary Date of Service March 07, 2025 Principal Dx & Hospital Course #1 = Principal Diagnosis (1) Acute respiratory failure with hypoxia and hypercapnia: (2) Acute exacerbation of CHF (congestive heart failure): (3) Pleural effusion: Plan The patient is a 64-year-old female with a past medical history including acute CVA due to left MCA embolism, ischemic CVA, CKD stage III, carotid artery occlusion, atrial fibrillation, NSTEMI, sepsis, CAD, PAF, MRSA pneumonia, diabetes mellitus, STEMI, DKA, circulatory shock, metabolic encephalopathy, dyslipidemia, and acute osteo of toe. She had been admitted to [facility] from 02/04-02/13 for STEMI and ischemic stroke. She was discharged to [facility] until 02/15, when she returned home. She has been visited by home health nursing regularly, and they noted today that the patient was having decreased oxygenation with pulse ox in the upper 80s, and was more short of breath. The home health nurse referred the patient to the emergency department for asses sment. In the emergency department she had the following abnormal laboratories: Creatinine 1.24, BNP 2170, albumin 3.1, troponin 49.7. BioFire testing with negative. Chest x-ray showed cardiomegaly with pulmonary edema. CT angiography chest showed CHF, and large bilateral pleural effusions. From the ED patient received furosemide 40 mg IV, and a Nitropaste 1 inch. She was then referred for evaluation for admission to the [facility] hospitalist service. #Acute respiratory failure with hypoxia and hypercapnia/acute CHF exacerbation/bilateral pleural effusions/PAF Acute on chronic HFmrEF STEMI occurring 02/04, which is within the past 4 weeks of ER presentation on 03/03 Creatinine is rising. Now with Acute kidney injury. Ordered albumin as proteing levels are low in hopes to help volume expansion while also help with remove that pleural effusion on the left. I asked pulmonary to see patient for possible tap but, there was not enough fluid to drain. will discuss with cards if appoitnment tomorrow ir reasonable vs inpatient consult. Continue Jardiance, amiodarone, apixaban, and aspirin BioFire testing negative Diabetes mellitus- Reduce glargine from 30 to 20 units subcu twice daily due to decreased oral intake Continue Jardiance Place on Accu-Cheks with NovoLog SSI blood sugars are better controlled Hyperlipidemia- Continue atorvastatin Recent acute CVA due to left MCA embolism- Admitted to [facility] from 02/04-02/09/2025 Was admitted to [facility], it was discharged there on 02/15 to home with home health nursing. Dissipate patient to have need for continued home health nursing upon discharge. Acute kidney injury- Creatinine worsened, with baseline 0.86 willl cut back on diuretics, albumin and 20 mg of lasix given. Admission HPI Per Admitting Provider The patient is a 64-year-old female with a past medical history including acute CVA due to left MCA embolism, ischemic CVA, CKD stage III, carotid artery occlusion, atrial fibrillation, NSTEMI, sepsis, CAD, PAF, MRSA pneumonia, diabetes mellitus, STEMI, DKA, circulatory shock, metabolic encephalopathy, dyslipidemia, and acute osteo of toe. She had been admitted to [facility] from 02/04-02/13 for STEMI and ischemic stroke. She was discharged to [facility] rehab until 02/15, when she returned home. She has been visited by home health nursing regularly, and they noted today that the patient was having decreased oxygenation with pulse ox in the upper 80s, and was more short of breath. The home health nurse referred the patient to the emergency department for assessment. In the emergency department she had the following abnormal laboratories: Creatinine 1.24, BNP 2170, albumin 3.1, troponin 49.7. BioFire testing with negative. Chest x-ray showed cardiomegaly with pulmonary edema. CT angiography chest showed CHF, and large bilateral pleural effusions. From the ED patient received furosemide 40 mg IV, and a Nitropaste 1 inch. She was then referred for evaluation for admission to the [facility] hospitalist service. Discharge Exam Constitutional WD/WN, vitals as above Neck trachea midline, no thyromegaly Cardiovascular RRR, no murmur, no edema Gastrointestinal (Abdomen) normal bowel sounds, soft, nontender, no hepatosplenomegaly Neurologic PERRL, EOMI, accommodation nl, no face palsy, no dysarthria Discharge Plan Discharge Items Patient Disposition: Home - Self-Care Reason For Visit: ACUTE RESP FAILURE WITH HYPOXIA, CHF, B/L PLEURAL Discharge Diagnosis: Acute resp failure with hypoxia, CHF, B/L pleural Condition on Discharge: Serious Activity: Resume your previous activity Non-emergency contact: Primary Care Provider Call non-emergency contact if: you have any medication questions Follow-up/Referrals: Jeferson Oneil PA-C [Primary Care Provider] - Diet: Carb Consistent or DM2 and Low Sodium (2gm) Juice Attending Provider Instructions: Call your Primary Care doctor if any of the following symptoms or problems start or get worse: * Shortness of breath or difficulty breathing * Wake up at night short of breath * Chest pain * Cough * Swelling of your hands, feet, or legs * More fatigued or tired with your normal activity * Palpitations - sudden fast heart beats WEIGHT * Weigh yourself every morning after using the bathroom. * Use the same scale. * Wear the same amount of clothing. * Write your weight down on a chart. * Call your Primary Care doctor if you gain more than 2-3 pounds in 1-2 days. MEDICATIONS * Use this discharge instruction sheet for medication instructions. * Take your medications at the time your doctor ordered. * Do not skip a dose of your medicines. * If you miss a dose of medicine, take it as soon as possible, but DO NOT DOUBLE A DOSE. * Read your medicine information when you get home. * Know all of the side effects of your medicine. If in doubt, ask your pharmacist * Call your Primary Care doctor's office if you have any side effects. * Be sure all of your doctors know what medicine and herbs you take (including cold, flu, and herbal medicine). Take the following with you to your follow-up doctor appointments: * Weight Chart * Medication List * List of questions Do not drink excessive alcohol, beer or wine. 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 Followup with PCP in 1-2 weeks. Pending Studies at Discharge: No Stand-Alone Forms: My [facility] [employer], Smoking Cessation Medications and DC Order Prescriptions: New potassium chloride 10 mEq tablet extended release 10 meq PO DAILY Qty: 15 0RF Continued aspirin [Adult Aspirin Regimen] 81 mg tablet,delayed release (DR/EC) 81 mg PO DAILY Qty: 30 11RF Hold Instructions: Resume on 02/23/25. metoprolol succinate 50 mg tablet extended release 24 hr 50 mg PO DAILY Hold Instructions: Resume on 02/23/25. Rx Instructions: PER PT'S "B/P RUNNING LOW, HAS NOT HAD FOR SEVERAL DAYS". tramadol 50 mg tablet 50 mg PO Q6H PRN (Reason: Pain) Hold Instructions: Resume on 02/23/25. ergocalciferol (vitamin D2) 1,250 mcg (50,000 unit) capsule 50,000 unit PO Q14D insulin glargine [Lantus Solostar U-100 Insulin] 100 unit/mL (3 mL) insulin pen 30 unit SUBCUT BID Rx Instructions: PER PT'S "TOTAL 60 UNITS DAILY, SPLIT DOSE BID". patient has been getting 15units in the morning and 10 units at bedtime risedronate 150 mg tablet 150 mg PO MONTHLY Rx Instructions: PER PT'S , end of month Jardiance 25 mg tablet 25 mg PO QAM Rx Instructions: LAST FILLED 06/17/24 FOR 30 DAYS/30 TABS. UNSURE IF STILL TAKING. amiodarone 200 mg tablet 200 mg PO BID gabapentin 300 mg capsule 300 mg PO BID Rx Instructions: prescribed 600 mg but MD is aware patient has been taking 300 mg bid atorvastatin 20 mg tablet 20 mg PO QPM insulin aspart U-100 [Novolog FlexPen U-100 Insulin] 100 unit/mL (3 mL) insulin pen 0 sliding scale dose SUBCUT TIDM MDD 50 UNITS/DAILY vit A-vit C-vit [id number] Tablet 1 tab PO DAILY Eliquis 5 mg Tablet 5 mg PO BID Qty: 60 0RF Changed furosemide 20 mg tablet 40 mg PO Q2D Qty: 0 0RF Rx Instructions: PER PT'S "HASN'T HAD IN A COUPLE OF DAYS". Discharge Orders: Discharge Order- CHF (Routine); Ordered 03/07/25 Ordered By: Rico Veliz Admission Data Admit Date/Time: 03/03/25 22:12 Attending Provider: Rico Veliz Admit Provider: Sher Dewey Primary Care Provider: Jeferson Oneil Other Providers: Sher Dewey; [facility],Home [facility]; Anabela Nelson Jennifer M. Hospital Stay Data Consultations 03/03/25 21:49 ED Decision to Admit Stat 03/06/25 15:50 Consult Pulmonology Routine 03/07/25 13:09 [facility] CHF Program Referral Routine Diagnostic Imagining Performed 03/03/25 18:41 CT for pulmonary embolism PE [CT angio chest PE protocol] Stat 03/06/25 14:35 US point of care ultrasound Urgent Pending Results Patient Have Any Pending Studies at Discharge: No Discharge Instructions Given to Patient (Per Discharging Provider) Call your Primary Care doctor if any of the following symptoms or problems start or get worse: * Shortness of breath or difficulty breathing * Wake up at night short of breath * Chest pain * Cough * Swelling of your hands, feet, or legs * More fatigued or tired with your normal activity * Palpitations - sudden fast heart beats WEIGHT * Weigh yourself every morning after using the bathroom. * Use the same scale. * Wear the same amount of clothing. * Write your weight down on a chart. * Call your Primary Care doctor if you gain more than 2-3 pounds in 1-2 days. MEDICATIONS * Use this discharge instruction sheet for medication instructions. * Take your medications at the time your doctor ordered. * Do not skip a dose of your medicines. * If you miss a dose of medicine, take it as soon as possible, but DO NOT DOUBLE A DOSE. * Read your medicine information when you get home. * Know all of the side effects of your medicine. If in doubt, ask your pharmacist * Call your Primary Care doctor's office if you have any side effects. * Be sure all of your doctors know what medicine and herbs you take (including cold, flu, and herbal medicine). Take the following with you to your follow-up doctor appointments: * Weight Chart * Medication List * List of questions Do not drink excessive alcohol, beer or wine. Coding Diagnoses Acute respiratory failure with hypoxia and hypercapnia J96.01; J96.02 Acute exacerbation of CHF (congestive heart failure) I50.9 Pleural effusion J90
[2025-03-07 14:07] VITALS: PULSE 66; O2SAT 91
--- NOTE | 2025-03-08 21:51 | Electrocardiogram Report ---
Test Reason : Blood Pressure : */* mmHG Vent. Rate : 87 BPM Atrial Rate : 87 BPM P-R Int : 210 ms QRS Dur : 98 ms QT Int : 390 ms P-R-T Axes : 29 -80 52 degrees QTcB Int : 469 ms Sinus rhythm with 1st degree A-V block Left axis deviation Low voltage QRS Cannot rule out Anterior infarct , age undetermined Abnormal ECG When compared with ECG of 07-Feb-2025 05:58, Premature atrial complexes are no longer Present QRS axis Shifted left Minimal criteria for Anterior infarct are now Present ST no longer elevated in Lateral leads Confirmed by Julio César Dickens ([id number]) on 03/08/2025 9:50:45 PM Referred By: REFERRED SELF Confirmed By: Julio César Dickens
--- NOTE | 2025-03-08 21:53 | Electrocardiogram Report ---
Test Reason : Blood Pressure : */* mmHG Vent. Rate : 70 BPM Atrial Rate : 70 BPM P-R Int : 250 ms QRS Dur : 110 ms QT Int : 450 ms P-R-T Axes : 38 -71 81 degrees QTcB Int : 486 ms Sinus rhythm with 1st degree A-V block Left axis deviation Incomplete left bundle block Nonspecific T wave abnormality Abnormal ECG When compared with ECG of 04-Mar-2025 05:50, No significant change Confirmed by Julio César Dickens ([id number]) on 03/08/2025 9:53:23 PM Referred By: REFERRED SELF Confirmed By: Julio César Dickens
--- NOTE | 2025-03-08 21:53 | Electrocardiogram Report ---
Test Reason : Blood Pressure : */* mmHG Vent. Rate : 78 BPM Atrial Rate : 78 BPM P-R Int : 260 ms QRS Dur : 106 ms QT Int : 442 ms P-R-T Axes : 19 -23 83 degrees QTcB Int : 503 ms Sinus rhythm with 1st degree A-V block Low voltage QRS Nonspecific T wave abnormality Prolonged QT Abnormal ECG When compared with ECG of 03-Mar-2025 17:44, QRS axis Shifted right Confirmed by Julio César Dickens ([id number]) on 03/08/2025 9:52:37 PM Referred By: REFERRED SELF Confirmed By: Julio César Dickens
== END 2025-03-07 14:13 | disposition home health service (06) | DRG 280 ==
LOC: ED 17:09 → SUATTDRO 22:12 → 2S 22:12